=== PATIENT | female | born 1960 | race American Indian/Alaskan Native ===

== ENCOUNTER 2016-06-06 11:52 | Outpatient (CLI) | payer MEDICAID ==
--- NOTE | 2016-06-06 15:19 | Cat Scan Report ---
CT scan of chest with IV contrast: History: Hilar mass. Findings: No endobronchial or mediastinal mass or adenopathy. Stable mediastinal lymph nodes. There is a large pericardial effusion noted. Maximum diameter 5 cm. Bilateral emphysematous changes with predominantly along the mediastinal surface. No definite consolidation or lung mass. Areas of discoid atelectasis left lower lobe. Impression: Large pericardial effusion. Additional findings as detailed above.
== END 2016-06-06 11:53 | disposition home or self-care (01) ==
LOC: CT 11:52
PROVIDERS: ATTEND Specialist
DX: I31.3 Pericardial effusion (noninflammatory) (principal); R93.8 Abnormal findings on diagnostic imaging of other specified body structures; J98.11 Atelectasis
CPT/HCPCS: 71260; Q9967

== ENCOUNTER 2016-06-06 21:49 | Emergency (ER) | payer MEDICAID ==
--- NOTE | 2016-06-07 00:28 | Emergency Department Report ---
HPI - General Chief Complaint: Extremity Problem,Nontraumatic Time Seen by Provider: 06/07/16 00:22 - HPI HPI: Patient is a 55-year-old female who presents to ED complaining or right arm swelling and pain times today. Patient states she was sent from her doctor's office Dr. das for long CT with contrast. Patient states the nurse who put the contrast was heard in the right after. Patient states she began heard in right after he was put in her arm. Patient states he started to swell and hardening up. Patient states during the CT scan and she kept telling them that her arm was hurting. Patient denies loss of consciousness, loss of mobility, fever, chills, nausea, difficulty breathing, shortness of breath. ED Past Medical Hx - Past Medical History Previous Medical History?: Yes Hx GERD: Yes Hx COPD: Yes (Home O2) Additional medical history: gall stones, fibroids, MVP - Surgical History Past Surgical History?: Yes Additional Surgical History: fibroid removal - Social History Smoking Status: Never Smoker Substance Use Type: None - Medications Home Medications: Home Medications Medication Instructions Recorded Confirmed Last Taken Type Albuterol Sulfate [Proventil HFA] 1 - 2 puff IH Q4H PRN 30 Days 08/16/14 Unknown Rx Nicotine [Habitrol] 21 mg TD QDAY #30 patch 08/16/14 10/29/14 Unknown Rx Beclomethasone Dipropionate [Qvar 2 inhalation IH BID 10/29/14 10/29/14 Unknown History 80MCG] Ipratropium/Albuterol Sulfate 1 spray IH QID 10/29/14 10/29/14 Unknown History [Combivent Respimat] Tiotropium Br/Olodaterol HCl 4 gm IH BID 10/29/14 10/29/14 Unknown History [Stiolto Respimat Inhal [place]] predniSONE [Deltasone] 20 mg PO BID #10 tab 10/29/14 Unknown Rx Azithromycin [Zithromax TAB] 500 mg PO QDAY #5 tablet 11/19/14 Unknown Rx Chloroxylenol/Pramoxine HCl 3 - 5 drop AU Q6HR #1 bottle 11/19/14 Unknown Rx [Oticin Drops 0.1/1%] Acetaminophen/Codeine 1 tab PO Q6H PRN #20 tab 06/29/15 Unknown Rx [Acetaminophen-Codeine #3 TAB] Cyclobenzaprine [Flexeril 10 MG 10 mg PO Q8H PRN #21 tablet 06/29/15 Unknown Rx TAB] Hydrocortisone 1% [Hydrocortisone 1 applicatio TP TID #1 tube 07/31/15 Unknown Rx 1% CREAM] Famotidine [Pepcid] 20 mg PO BID #10 tablet 01/04/16 Unknown Rx diphenhydrAMINE [Benadryl CAP] 25 mg PO QHS PRN #10 capsule 06/07/16 Unknown Rx predniSONE [Deltasone] 20 mg PO QDAY #5 tab 06/07/16 Unknown Rx ED Review of Systems ROS: Stated complaint: RIGHT ARM SWELLING Other details as noted in HPI Constitutional: denies: chills, fever Eyes: denies: eye pain, eye discharge, vision change ENT: denies: ear pain, throat pain Respiratory: denies: cough, shortness of breath, wheezing Cardiovascular: denies: chest pain, palpitations Endocrine: no symptoms reported Gastrointestinal: denies: abdominal pain, nausea, diarrhea Genitourinary: denies: urgency, dysuria, discharge Musculoskeletal: denies: back pain, joint swelling, arthralgia Skin: change in color. denies: rash, lesions Neurological: denies: headache, weakness, paresthesias Psychiatric: denies: anxiety, depression Hematological/Lymphatic: denies: easy bleeding, easy bruising Physical Exam - Physical Exam Vital Signs: Vital Signs 06/06/16 21:58 Temperature 98.8 F Pulse Rate 60 Respiratory 20 Rate Blood Pressure 147/84 O2 Sat by Pulse 99 Oximetry Physical Exam: GENERAL: Alert and oriented x3, no apparent distress, Normal Gait, atraumatic. MOUTH:Mouth is well hydrated and without lesions. Tonsils nonerythematous or swollen, Uvula midline, Tongue not elevated. Mucous membranes are moist. Posterior pharynx clear, no exudate or lesions. Patent airways. NECK: Supple. Non edematous, No carotid bruits. No lymphadenopathy or thyromegaly. LUNGS: Symetrical with respiration, No wheezing, no rales or crackles, CTAB. HEART: S1, S2 present, regular rate and rhythm without murmur, no rubs, no gallops. ABDOMEN: No organomegaly was noted,Positive bowel sounds, soft, and non- distended. . Nontender to palpation on all Quadrants, NO CVA tenderness. EXTREMITIES/MUSCULOSKELETAL: No cyanosis, clubbing, rash, lesions or edema. Full ROM bilaterally. UE/LE Pulses 2+ bilaterally. Right elbow full range of motion. Mild ecchymosis noted at the antecubital region of the arm. +1 pitting edema and cellulitis from mid arm to the elbow. Nontender to palpation. NEUROLOGIC: No focal Deficit, Cranial nerves II through XII are grossly intact. No loss of sensation, PSYCHIATRIC: Mood is congruent with affect, denies suicidal or homicidal ideations. SKIN: Warm and dry, No lesions, No ulceration or induration present. ED Course Vital Signs 06/06/16 21:58 Temperature 98.8 F Pulse Rate 60 Respiratory 20 Rate Blood Pressure 147/84 O2 Sat by Pulse 99 Oximetry ED Medical Decision Making - Medical Decision Making 55-year-old female presents with dye induced allergic reaction. ED course: Patient received 20 mg of prednisone Discussed the patient warm compress application to arm daily 3 times. Discussed with patient and take medication as prescribed. Discussed the patient to follow up with her primary care doctor Dr. Bishop. Discuss if worsening symptoms to return to ED. Vital signs are stable patient is in no acute or respiratory distress. Patient verbally states she understands and will follow-up Critical care attestation.: If time is entered above; I have spent that time in minutes in the direct care of this critically ill patient, excluding procedure time. ED Disposition Clinical Impression: Dye induced allergic contact dermatitis Disposition: DISCHARGED TO HOME OR SELFCARE Is pt being admited?: No Does the pt Need Aspirin: No Condition: Stable Instructions: Contact Dermatitis (ED), Cellulitis (ED) Additional Instructions: Apply heat to affected area. Discussed follow-up with her primary care physician. If symptoms worsen return to nearest ED. Prescriptions: diphenhydrAMINE [Benadryl CAP] 25 mg PO QHS PRN #10 capsule PRN Reason: Allergic Reaction predniSONE [Deltasone] 20 mg PO QDAY #5 tab Referrals: PRIMARY CARE, [Primary Care Provider] - 3-5 Days Forms: Work/School Release Form(ED) Time of Disposition: 01:00
[2016-06-07] MEDS ORDERED: DELTASONE PO ONE (00:58)
[2016-06-07 01:33] VITALS: BP 125/80
== END 2016-06-07 01:41 | disposition home or self-care (01) ==
LOC: ED 21:49
DX: L23.4 Allergic contact dermatitis due to dyes (principal); K21.9 Gastro-esophageal reflux disease without esophagitis; J44.9 Chronic obstructive pulmonary disease, unspecified
CPT/HCPCS: 99282

== ENCOUNTER 2016-06-21 12:00 | Emergency (ER) | payer MEDICAID | END 2016-06-21 15:15 | disposition left against medical advice (07) | LOC: ED 12:00 | DX: R07.89 Other chest pain (principal); Z53.21 Procedure and treatment not carried out due to patient leaving prior to being seen by health care provider ==

== ENCOUNTER 2016-07-01 16:59 | Emergency (ER) | payer MEDICAID | END 2016-07-01 18:15 | disposition left against medical advice (07) | LOC: ED 16:59 | DX: Z00.8 Encounter for other general examination (principal); Z88.5 Allergy status to narcotic agent; Z53.21 Procedure and treatment not carried out due to patient leaving prior to being seen by health care provider ==

== ENCOUNTER 2016-07-06 16:26 | Emergency (ER) | payer MEDICAID ==
[2016-07-06 17:36] LABS: Bilirubin,Urine NEG (Negative); Blood,Urine SM (Negative); Ketones,Urine NEG (Negative); Leukocyte Esterase,Urine NEG (Negative); Nitrite,Urine NEG (Negative); Protein,Urine <15 mg/dL mg/dL (Negative); Urobilinogen,Urine < 2.0 mg/dL (<2.0)
[2016-07-06 17:51] LABS: Hematocrit 40.8 % (30.3-42.9); Hemoglobin 13.3 gm/dl (10.1-14.3); Mean Corpuscular HGB Conc 33 % (30-34); Mean Corpuscular Hemoglobin 28 pg (28-32); Mean Corpuscular Volume 86 fl (79-97); Platelet Count 238 K/mm3 (140-440); Red Blood Count 4.77 M/mm3 (3.65-5.03); Red Cell Distribution Width 15.6 % (13.2-15.2); White Blood Count 10.2 K/mm3 (4.5-11.0)
[2016-07-06 17:59] LABS: Basophils % (Auto) 1.1 % (0.0-1.8); Eosinophils % (Auto) 3.4 % (0.0-4.3)
[2016-07-06 18:03] LABS: Alanine Aminotransferase 23 units/L (7-56); Albumin 3.9 g/dL (3.9-5); Albumin/Globulin Ratio 1.4 %; Alkaline Phosphatase 85 units/L (35-129); Anion Gap 18 mmol/L; BUN/Creatinine Ratio 11.25; Blood Urea Nitrogen 9 mg/dL (7-17); Calcium 9.2 mg/dL (8.4-10.2); Carbon Dioxide 29 mmol/L (22-30); Chloride 100.6 mmol/L (98-107); Glucose 115 mg/dL (65-100); Potassium 3.7 mmol/L (3.6-5.0); Sodium 144 mmol/L (137-145); Total Protein 6.6 g/dL (6.3-8.2)
[2016-07-06 18:08] LABS: INR 0.92 (0.87-1.13)
[2016-07-06 18:09] LABS: Partial Thromboplastin Time 25.9 Sec. (24.2-36.6)
[2016-07-06 18:11] LABS: Creatine Kinase 205 units/L (30-135); Creatine Kinase MB 3.8 ng/mL (0.0-4.0)
[2016-07-06] MEDS ORDERED: LEVAQUIN 750MG/150ML 750 MG/150 ML BAG IV ONE (21:01)
[2016-07-06] MEDS ORDERED: DUONEB 0.5 MG-3 MG/3 ML SOLN IH ONE (21:01)
--- NOTE | 2016-07-06 22:00 | Emergency Department Report ---
ED Shortness of Breath HPI - General Chief Complaint: Dyspnea/Respdistress Stated Complaint: SOB Time Seen by Provider: 07/06/16 20:48 Source: patient, RN notes reviewed Mode of arrival: Ambulatory Limitations: No Limitations - History of Present Illness Initial Comments: 55-year-old female presents to the emergency department complaining of shortness of breath. Patient reports the acute onset of difficulty breathing approximately 2:30 this afternoon. Patient states that she normally wears 2 L of oxygen via nasal cannula. She has not had to increase this since onset of symptoms. She reports mild cough productive of yellow sputum. She denies fever or chest pain. There are no other complaints. MD Complaint: shortness of breath, cough -: Sudden, This afternoon Time: 14:30 Pain Scale: 0 Consistency: constant Improves With: nothing Worsens With: nothing Known History Of: COPD Associated Symptoms: denies other symptoms Treatments Prior to Arrival: none - Related Data Home Oxygen Therapy: Yes Home Oxygen Amount: 2 Liters Home Medications Medication Instructions Recorded Confirmed Last Taken Beclomethasone Dipropionate [Qvar 2 inhalation IH BID 10/29/14 10/29/14 Unknown 80MCG] Ipratropium/Albuterol Sulfate 1 spray IH QID 10/29/14 10/29/14 Unknown [Combivent Respimat] Tiotropium Br/Olodaterol HCl 4 gm IH BID 10/29/14 10/29/14 Unknown [Stiolto Respimat Inhal [place]] Previous Rx's Medication Instructions Recorded Last Taken Type Albuterol Sulfate [Proventil HFA] 1 - 2 puff IH Q4H PRN 30 Days 08/16/14 Unknown Rx Nicotine [Habitrol] 21 mg TD QDAY #30 patch 08/16/14 Unknown Rx Azithromycin [Zithromax TAB] 500 mg PO QDAY #5 tablet 11/19/14 Unknown Rx Chloroxylenol/Pramoxine HCl 3 - 5 drop AU Q6HR #1 bottle 11/19/14 Unknown Rx [Oticin Drops 0.1/1%] Acetaminophen/Codeine [Tylenol 1 tab PO Q6H PRN #20 tab 06/29/15 Unknown Rx /Codeine # 3 tab] Cyclobenzaprine [Flexeril 10 MG 10 mg PO Q8H PRN #21 tablet 06/29/15 Unknown Rx TAB] Hydrocortisone 1% [Hydrocortisone 1 applicatio TP TID #1 tube 07/31/15 Unknown Rx 1% CREAM] Famotidine [Pepcid] 20 mg PO BID #10 tablet 01/04/16 Unknown Rx diphenhydrAMINE [Benadryl CAP] 25 mg PO QHS PRN #10 capsule 06/07/16 Unknown Rx Dicyclomine [Bentyl] 20 mg PO QID PRN #20 tablet 07/06/16 Unknown Rx Levofloxacin [Levaquin] 750 mg PO QDAY #7 tablet 07/06/16 Unknown Rx predniSONE [Deltasone] 3 tab PO QDAY #15 tab 07/06/16 Unknown Rx Allergies Allergy/AdvReac Type Severity Reaction Status Date / Time morphine Allergy Rash Verified 12/21/14 06:53 ED Review of Systems ROS: Stated complaint: SOB Other details as noted in HPI Comment: All other systems reviewed and negative Respiratory: cough, shortness of breath ED Past Medical Hx - Past Medical History Previous Medical History?: Yes Hx GERD: Yes Hx COPD: Yes (Home O2) Additional medical history: gall stones, fibroids, MVP - Surgical History Past Surgical History?: Yes Additional Surgical History: fibroid removal - Family History Family history: no significant - Social History Smoking Status: Former Smoker Substance Use Type: None - Medications Home Medications: Home Medications Medication Instructions Recorded Confirmed Last Taken Type Albuterol Sulfate [Proventil HFA] 1 - 2 puff IH Q4H PRN 30 Days 08/16/14 Unknown Rx Nicotine [Habitrol] 21 mg TD QDAY #30 patch 08/16/14 10/29/14 Unknown Rx Beclomethasone Dipropionate [Qvar 2 inhalation IH BID 10/29/14 10/29/14 Unknown History 80MCG] Ipratropium/Albuterol Sulfate 1 spray IH QID 10/29/14 10/29/14 Unknown History [Combivent Respimat] Tiotropium Br/Olodaterol HCl 4 gm IH BID 10/29/14 10/29/14 Unknown History [Stiolto Respimat Inhal [place]] Azithromycin [Zithromax TAB] 500 mg PO QDAY #5 tablet 11/19/14 Unknown Rx Chloroxylenol/Pramoxine HCl 3 - 5 drop AU Q6HR #1 bottle 11/19/14 Unknown Rx [Oticin Drops 0.1/1%] Acetaminophen/Codeine [Tylenol 1 tab PO Q6H PRN #20 tab 06/29/15 Unknown Rx /Codeine # 3 tab] Cyclobenzaprine [Flexeril 10 MG 10 mg PO Q8H PRN #21 tablet 06/29/15 Unknown Rx TAB] Hydrocortisone 1% [Hydrocortisone 1 applicatio TP TID #1 tube 07/31/15 Unknown Rx 1% CREAM] Famotidine [Pepcid] 20 mg PO BID #10 tablet 01/04/16 Unknown Rx diphenhydrAMINE [Benadryl CAP] 25 mg PO QHS PRN #10 capsule 06/07/16 Unknown Rx Dicyclomine [Bentyl] 20 mg PO QID PRN #20 tablet 07/06/16 Unknown Rx Levofloxacin [Levaquin] 750 mg PO QDAY #7 tablet 07/06/16 Unknown Rx predniSONE [Deltasone] 3 tab PO QDAY #15 tab 07/06/16 Unknown Rx ED Physical Exam - General Limitations: No Limitations General appearance: alert, in no apparent distress - Head Head exam: Present: atraumatic, normocephalic - Eye Eye exam: Present: normal appearance, PERRL, EOMI - ENT ENT exam: Present: normal exam, normal orophraynx, mucous membranes moist - Neck Neck exam: Present: normal inspection, full ROM. Absent: tenderness - Respiratory Respiratory exam: Present: wheezes (bilateral posterior end expiratory wheezes) . Absent: respiratory distress - Cardiovascular Cardiovascular Exam: Present: regular rate, normal rhythm, systolic murmur (2/6 left lower sternal border) - GI/Abdominal GI/Abdominal exam: Present: soft, normal bowel sounds. Absent: distended, tenderness - Extremities Exam Extremities exam: Present: normal inspection, full ROM. Absent: tenderness - Back Exam Back exam: Present: normal inspection, full ROM. Absent: tenderness - Neurological Exam Neurological exam: Present: alert, oriented X3. Absent: motor sensory deficit - Skin Skin exam: Present: warm, dry, intact ED Course Vital Signs 07/06/16 07/06/16 07/06/16 16:44 21:31 21:59 Temperature 98.9 F Pulse Rate 72 Pulse Rate [ 114 H 129 H Throughout] Respiratory 22 Rate Respiratory 20 20 Rate [ Throughout] Blood Pressure 131/65 O2 Sat by Pulse 95 Oximetry ED Medical Decision Making - Lab Data Result diagrams: 07/06/16 17:27 07/06/16 17:27 - EKG Data -: EKG Interpreted by Me EKG shows normal: sinus rhythm, axis, intervals, QRS complexes, ST-T waves Rate: tachycardia - EKG Data When compared to previous EKG there are: no significant change Interpretation: normal EKG, unchanged when compared t (10/29/2014) - Radiology Data Radiology results: image reviewed interpreted by me: Chest x-ray shows cardiomegaly. There is no evidence of infiltrate or pulmonary edema. - Medical Decision Making Lab and imaging results reviewed and discussed with the patient. She reports feeling much better following nebulized treatment. Patient will be discharged home at this time on oral anti-biotics and steroids to follow up with her primary care physician. - Differential Diagnosis COPD exacerbation, pneumonia, bronchitis Critical care attestation.: If time is entered above; I have spent that time in minutes in the direct care of this critically ill patient, excluding procedure time. ED Disposition Clinical Impression: COPD exacerbation Disposition: DISCHARGED TO HOME OR SELFCARE Is pt being admited?: No Condition: Stable Instructions: Chronic Obstructive Pulmonary Disease (ED) Prescriptions: Dicyclomine [Bentyl] 20 mg PO QID PRN #20 tablet PRN Reason: Pain Levofloxacin [Levaquin] 750 mg PO QDAY #7 tablet predniSONE [Deltasone] 3 tab PO QDAY #15 tab Referrals: PRIMARY CARE, [Primary Care Provider] - 3-5 Days Time of Disposition: 22:43
[2016-07-06] MEDS ORDERED: BENTYL IM ONE (22:27)
[2016-07-06 22:57] VITALS: BP 120/64
--- NOTE | 2016-07-07 07:51 | XRay Report ---
ROUTINE CHEST, TWO VIEWS: HISTORY: Dyspnea. There is moderate cardiomegaly which appears grossly unchanged since CT chest with contrast dated 06/06/16. This appears to represent a large pericardial effusion. Pulmonary vascularity remains normal. The lungs are grossly clear. No pleural effusion or pneumothorax. Mild scoliosis. IMPRESSION: Cardiomegaly. Lungs clear.
== END 2016-07-06 23:00 | disposition home or self-care (01) ==
LOC: ED 16:26
DX: J44.1 Chronic obstructive pulmonary disease with (acute) exacerbation (principal); K21.9 Gastro-esophageal reflux disease without esophagitis; Z88.5 Allergy status to narcotic agent; Z87.891 Personal history of nicotine dependence
CPT/HCPCS: 36415; 71020; 80053; 81001; 82140; 82550; 82553; 82805; 84484; 85025; 85610; 85730; 93005; 93010; 94640; 96365; 96372; 96375; 99284; J0500; J1956; J2930

== ENCOUNTER 2016-07-14 20:12 | Emergency (ER) | payer MEDICAID ==
[2016-07-14 20:34] VITALS: BP 158/75
[2016-07-14 21:33] LABS: Anion Gap 17 mmol/L; Blood Urea Nitrogen 15 mg/dL (7-17); Calcium 9.7 mg/dL (8.4-10.2); Carbon Dioxide 28 mmol/L (22-30); Chloride 98.7 mmol/L (98-107); Glucose 101 mg/dL (65-100); Potassium 3.9 mmol/L (3.6-5.0); Sodium 140 mmol/L (137-145)
[2016-07-14 21:45] LABS: Bacteria,Urine 1+ /HPF (Negative); Bilirubin,Urine NEG (Negative); Blood,Urine SM (Negative); Ketones,Urine NEG (Negative); Leukocyte Esterase,Urine NEG (Negative); Nitrite,Urine NEG (Negative); Protein,Urine <15 mg/dL mg/dL (Negative); Urobilinogen,Urine < 2.0 mg/dL (<2.0); WBC,Urine < 1.0 /HPF (0.0-6.0)
[2016-07-14 21:48] LABS: Hematocrit 42.8 % (30.3-42.9); Hemoglobin 14.1 gm/dl (10.1-14.3); Mean Corpuscular HGB Conc 33 % (30-34); Mean Corpuscular Hemoglobin 29 pg (28-32); Mean Corpuscular Volume 87 fl (79-97); Platelet Count 297 K/mm3 (140-440); Red Cell Distribution Width 15.4 % (13.2-15.2); White Blood Count 13.2 K/mm3 (4.5-11.0)
== END 2016-07-14 21:45 | disposition left against medical advice (07) ==
LOC: ED 20:12
DX: H53.8 Other visual disturbances (principal); R07.89 Other chest pain; Z53.21 Procedure and treatment not carried out due to patient leaving prior to being seen by health care provider
CPT/HCPCS: 36415; 80048; 81001; 85027

== ENCOUNTER 2016-07-22 10:56 | Day surgery (SDC) | payer MEDICAID ==
[~2016-07-22 10:56] MED LIST: VERSED IV ONE
[2016-07-22] MEDS ORDERED: XYLOCAINE MPF 2% ONE (11:00)
[2016-07-22] MEDS ORDERED: DIPRIVAN 10 MG/ML IV ONE ×3 (11:10→11:11)
--- NOTE | 2016-07-22 11:32 | Anesthesia Day of Surgery ---
Anesthesia Day of Surgery - Day of Surgery Patient Examined: Yes Patient H&P Reviewed: Yes Patient is NPO: Yes
--- NOTE | 2016-07-22 11:37 | Anesthesia Consultation ---
Anesthesia Consult and Med Hx - Airway Anesthetic Teeth Evaluation: Poor, Dentures (upper) ROM Head & Neck: Adequate Mental/Hyoid Distance: Adequate Mallampati Class: Class II Intubation Access Assessment: Probably Good - Pulmonary Exam CTA: Yes - Cardiac Exam Cardiac Exam: RRR (pt has heart murmer with irregular heart beat) - Pre-Operative Health Status ASA Pre-Surgery Classification: ASA2, ASA3 Proposed Anesthetic Plan: MAC - Pulmonary Hx Smoking: Yes (pt states 3 cigs/day) Hx Asthma: Yes (last attack yesterday) COPD: Yes (Home O2) - Cardiovascular System Hx Hypertension: No Hx Heart Attack/AMI: No Hx Pacemaker: No Hx Internal Defibrillator: No - Central Nervous System Hx Seizures: No - Gastrointestinal Hx Gastroesophageal Reflux Disease: Yes (controlled) - Endocrine Hx Renal Disease: No Hx Liver Disease: No - Hematic Hx Sickle Cell Disease: No - Additional Comments Anesthesia Medical History Comments: NPO after mhn. O2 dependent at home. Asthma attack yesterday.
[2016-07-22] MEDS ORDERED: PROVENTIL IH NR (11:45)
[2016-07-22] MEDS ORDERED: NACL 0.9% 1000 ML 1,000 ML IV SCH (12:00)
[2016-07-22] MEDS ORDERED: NACL 0.9% 500 ML 500 ML IV SCH (12:00)
[2016-07-22] MEDS ORDERED: PROVENTIL IH PRN (12:00)
[2016-07-22 12:15] LABS: INR 0.96 (0.87-1.13)
[2016-07-22 12:19] LABS: Anion Gap 20 mmol/L; Blood Urea Nitrogen 17 mg/dL (7-17); Calcium 9.2 mg/dL (8.4-10.2); Carbon Dioxide 23 mmol/L (22-30); Chloride 99.7 mmol/L (98-107); Glucose 135 mg/dL (65-100); Potassium 3.8 mmol/L (3.6-5.0); Sodium 139 mmol/L (137-145)
[2016-07-22] MEDS ORDERED: HURRICAINE ONE 20% TOPICAL SPRAY MM NR (13:00)
[2016-07-22 15:21] VITALS: BP 102/58
== END 2016-07-22 16:03 | disposition home or self-care (01) ==
LOC: OPU 10:56
DX: I08.1 Rheumatic disorders of both mitral and tricuspid valves (principal); J44.9 Chronic obstructive pulmonary disease, unspecified; J45.909 Unspecified asthma, uncomplicated; K21.9 Gastro-esophageal reflux disease without esophagitis; F17.210 Nicotine dependence, cigarettes, uncomplicated; Z99.81 Dependence on supplemental oxygen; Z79.899 Other long term (current) drug therapy; Z88.5 Allergy status to narcotic agent; Z83.3 Family history of diabetes mellitus; Z82.49 Family history of ischemic heart disease and other diseases of the circulatory system; Z82.3 Family history of stroke
CPT/HCPCS: 36415; 80048; 85610; 93005; 93010; 93312; 93320; 93325; 94640; J1720; J2704; J7040

== ENCOUNTER 2016-08-28 07:26 | Day surgery (SDC) | payer MEDICAID ==
[2016-08-28 09:14] VITALS: BP 119/67
[2016-08-28] MEDS ORDERED: ECOTRIN PO ONE (09:30)
[2016-08-28 09:33] LABS: Hematocrit 41.4 % (30.3-42.9); Hemoglobin 13.4 gm/dl (10.1-14.3); Mean Corpuscular HGB Conc 32 % (30-34); Mean Corpuscular Hemoglobin 28 pg (28-32); Mean Corpuscular Volume 85 fl (79-97); Platelet Count 293 K/mm3 (140-440); Red Blood Count 4.85 M/mm3 (3.65-5.03); Red Cell Distribution Width 15.5 % (13.2-15.2); White Blood Count 13.1 K/mm3 (4.5-11.0)
[2016-08-28 09:46] LABS: INR 1.08 (0.87-1.13)
[2016-08-28 09:56] LABS: Anion Gap 18 mmol/L; Blood Urea Nitrogen 11 mg/dL (7-17); Calcium 9.1 mg/dL (8.4-10.2); Carbon Dioxide 25 mmol/L (22-30); Glucose 98 mg/dL (65-100); Sodium 143 mmol/L (137-145)
[2016-08-28] MEDS ORDERED: NACL 0.9% 500 ML 500 ML IV SCH (10:00)
[2016-08-28 10:21] LABS: Basophils % (Manual) 0 % (0.0-1.8); Blastocytes % (Manual) 0 %; Ovalocytes Few
[2016-08-28 10:22] LABS: Anisocytosis Few; Diff Status Complete
[2016-08-28] MEDS ORDERED: HEPARIN 10,000 UNITS/10 ML ONE (10:31)
[2016-08-28] MEDS ORDERED: VERSED ONE (10:31)
[2016-08-28] MEDS ORDERED: HEPARIN/NS 5000 UNIT/500ML(CATH LAB) 0 ML IR ONE (10:31)
[2016-08-28] MEDS ORDERED: SUBLIMAZE ONE (10:32)
[2016-08-28] MEDS ORDERED: CALAN ONE (10:32)
[2016-08-28] MEDS ORDERED: XYLOCAINE 2% INFILTRATI ONE (10:32)
[2016-08-28] MEDS ORDERED: NITROGLYCERIN SYRINGE 0 ML ONE (10:32)
== END 2016-08-28 11:00 | disposition home or self-care (01) ==
LOC: OPU 07:26
PROVIDERS: ATTEND Internal Medicine
DX: I34.0 Nonrheumatic mitral (valve) insufficiency (principal); J44.9 Chronic obstructive pulmonary disease, unspecified; K21.9 Gastro-esophageal reflux disease without esophagitis; F17.210 Nicotine dependence, cigarettes, uncomplicated; Z79.899 Other long term (current) drug therapy; Z88.5 Allergy status to narcotic agent; Z98.890 Other specified postprocedural states; Z83.3 Family history of diabetes mellitus; Z82.49 Family history of ischemic heart disease and other diseases of the circulatory system; Z82.3 Family history of stroke; Z53.8 Procedure and treatment not carried out for other reasons
CPT/HCPCS: 36415; 80048; 85007; 85025; 85610; 85730; 93005; 93010; J7040; J1644; J2250; J3010

== ENCOUNTER 2016-09-04 07:31 | Day surgery (SDC) | payer MEDICAID ==
[2016-09-04] MEDS ORDERED: ECOTRIN PO ONE (08:07)
[2016-09-04] MEDS ORDERED: PROVENTIL IH ONE ×2 (08:41→10:32)
[2016-09-04] MEDS ORDERED: VERSED ONE (08:41)
[2016-09-04] MEDS ORDERED: SUBLIMAZE ONE (08:42)
[2016-09-04] MEDS ORDERED: DIPRIVAN 10 MG/ML IV ONE (08:42)
[2016-09-04] MEDS ORDERED: AMIDATE IV ONE (08:58)
[2016-09-04] MEDS ORDERED: NEO SYNEPHRINE ONE (08:58)
[2016-09-04] MEDS ORDERED: NACL 0.9% 100 ML ONE (08:58)
[2016-09-04] MEDS ORDERED: HEPARIN 10,000 UNITS/10 ML ONE (09:00)
[2016-09-04] MEDS ORDERED: NACL 0.9% 1000 ML 1,000 ML IV SCH (09:00)
[2016-09-04] MEDS ORDERED: HEPARIN/NS 5000 UNIT/500ML(CATH LAB) 1,000 ML IR ONE (09:00)
[2016-09-04] MEDS ORDERED: CALAN ONE (09:00)
[2016-09-04] MEDS ORDERED: XYLOCAINE 2% INFILTRATI ONE (09:00)
[2016-09-04] MEDS ORDERED: XYLOCAINE MPF 2% ONE (09:07)
--- NOTE | 2016-09-04 10:44 | Prelim Cardiac Cath Report ---
Preliminary Cath Report - Hemodynamic Findings Aorta(AO): 128/74 Left Ventricular(LV): 127/22 - Other Findings Estimated blood loss: minimal Dominance: right Estimated Ejection Fraction: 45 (mild hypokinesis particularly of the inferior wall was noted.) LV Contractility: diffusely mildly hypokinetic. Coronary Anatomy: Cardiac catheterization procedure: Patient with severe lung disease, requiring oxygen all the time was scheduled for cardiac catheterization. Anesthesia was consulted for sedation. Was evaluated by anesthesia and was sedated with the IV Versed, fentanyl, and also Propofol. Patient was deeply sedated. Subsequently patient was draped and sterile drapes were applied. Local anesthesia was applied in the right wrist area. Right radial artery puncture was made using 21-gauge arterial puncture needle. Subsequently 5 [place] sheath was introduced. Patient received 5 mg of intra-arterial verapamil and 3000 units of intravenous heparin. Subsequently using 5 [place] multipurpose catheter and angiograms of right coronary artery and left coronary artery were obtained. LAD injections were nonselective, hence 5 [place] Tig catheter was used to obtain angiograms of the LAD. 5 [place] pigtail catheter was used to enter the left ventricle, pressures were measured. Subsequently using pressure injector, 45 mL of dye was injected 15 mL/h. At the end of the procedure the catheter and sheath were removed. Patient tolerated the procedure well. Radial band was applied for hemostasis. Patient being monitored by anesthesia for recovery. Left ventriculography: Left ventricular gram was performed using a power injector. Moderately dilated left ventricle with diffuse hypokinesis particularly of the inferior wall noted. Estimated ejection fraction 45-50%. There is severe 4+ mitral regurgitation noted. Markedly enlarged left atrium noted. Coronary angiography: Left coronary artery: Left main is non-existent with 2 separate ostia for LAD and circumflex. LAD arises separately, reaches apex, angiographically smooth and normal. Circumflex artery arises separately, angiographically smooth and normal, very tortuous. Right coronary artery: Dominant vessel, angiographically smooth and normal. Arises normally. Post Diagnosis: Severe mitral regurgitation, with dilated left ventricle and markedly dilated left atrium. Ejection fraction around 45-50%. Normal coronary angiography. Recommendations: Would continue present medical therapy, consider evaluation for mitral valve repair.
[2016-09-04 13:11] VITALS: BP 105/60
[2016-09-04] MEDS ORDERED: ePHEDrine SULFATE ONE (14:32)
[2016-09-04] MEDS ORDERED: ZOFRAN ONE (14:33)
--- NOTE | 2016-09-04 15:04 | Anesthesia Day of Surgery ---
Anesthesia Day of Surgery - Day of Surgery Patient Examined: Yes Patient H&P Reviewed: Yes Patient is NPO: Yes
--- NOTE | 2016-09-04 15:04 | Anesthesia Consultation ---
Anesthesia Consult and Med Hx Date of service: 09/04/16 - Airway Anesthetic Teeth Evaluation: Poor, Dentures (upper) - Pulmonary Exam CTA: No (bilateral wheezing) - Cardiac Exam Cardiac Exam: RRR - Pre-Operative Health Status ASA Pre-Surgery Classification: ASA3 Proposed Anesthetic Plan: MAC - Pulmonary Hx Smoking: Yes (pt states 4 cigs/day) Hx Asthma: Yes SOB: Yes COPD: Yes Home Oxygen Therapy: Yes (Home O2 - 3L/min) Hx Sleep Apnea: Yes - Cardiovascular System Hx Hypertension: No Hx Heart Attack/AMI: No Hx Pacemaker: No Hx Internal Defibrillator: No Hx Valvular Heart Disease: Yes (severe MR) Hx Peripheral Vascular Disease: Yes - Central Nervous System Hx Seizures: No Hx Psychiatric Problems: Yes (anxiety, extreme claustorphobia) - Gastrointestinal Hx Gastroesophageal Reflux Disease: Yes (controlled) - Endocrine Hx Renal Disease: No Hx Liver Disease: No Hx Insulin Dependent Diabetes: No - Hematic Hx Sickle Cell Disease: No - Other Systems Hx Alcohol Use: No Hx Substance Use: No Hx Cancer: No Hx Obesity: No
== END 2016-09-04 13:30 | disposition home or self-care (01) ==
LOC: OPU 07:31
PROVIDERS: ATTEND Internal Medicine
DX: I34.0 Nonrheumatic mitral (valve) insufficiency (principal); J44.9 Chronic obstructive pulmonary disease, unspecified; K21.9 Gastro-esophageal reflux disease without esophagitis; F17.210 Nicotine dependence, cigarettes, uncomplicated; F41.9 Anxiety disorder, unspecified; F40.240 Claustrophobia; Z79.899 Other long term (current) drug therapy; Z86.79 Personal history of other diseases of the circulatory system; Z98.890 Other specified postprocedural states; Z88.5 Allergy status to narcotic agent; Z83.3 Family history of diabetes mellitus; Z82.49 Family history of ischemic heart disease and other diseases of the circulatory system; Z82.3 Family history of stroke; Z99.81 Dependence on supplemental oxygen
CPT/HCPCS: 93005; 93010; 93458; C1769; C1887; C1894; J1644; J2250; J2370; J2405; J2704; J3010; J7030; Q9967

== ENCOUNTER 2016-09-25 23:33 | Emergency (ER) | payer MEDICAID ==
[2016-09-25 23:46] VITALS: BP 127/66
[2016-09-26 00:34] LABS: Anion Gap 19 mmol/L; BUN/Creatinine Ratio 11.25; Blood Urea Nitrogen 9 mg/dL (7-17); Calcium 9.3 mg/dL (8.4-10.2); Carbon Dioxide 22 mmol/L (22-30); Chloride 104.1 mmol/L (98-107); Glucose 86 mg/dL (65-100); Potassium 3.8 mmol/L (3.6-5.0); Sodium 141 mmol/L (137-145)
[2016-09-26 00:38] LABS: Hematocrit 38.4 % (30.3-42.9); Hemoglobin 12.6 gm/dl (10.1-14.3); Mean Corpuscular HGB Conc 33 % (30-34); Mean Corpuscular Hemoglobin 28 pg (28-32); Mean Corpuscular Volume 86 fl (79-97); Platelet Count 292 K/mm3 (140-440); Red Blood Count 4.48 M/mm3 (3.65-5.03); Red Cell Distribution Width 14.6 % (13.2-15.2); White Blood Count 9.9 K/mm3 (4.5-11.0)
[2016-09-26 03:14] LABS: Basophils % (Manual) 0 % (0.0-1.8); Blastocytes % (Manual) 0 %
[2016-09-26 03:15] LABS: Diff Status Complete; Platelet Estimate Consistent w Auto; RBC Morphology Normal
--- NOTE | 2016-09-26 03:45 | Emergency Department Report ---
ED Lower Extremity HPI - General Chief Complaint: Extremity Problem,Nontraumatic Stated Complaint: LEG SWELLING Time Seen by Provider: 09/26/16 03:29 Source: patient, family Mode of arrival: Ambulatory Limitations: No Limitations - History of Present Illness Initial Comments: Patient here reports that her left foot has been swollen for 1 day it stated in triage not that left leg but she said it's the ankle that saw her in. She said it comes and goes and it's worse when she walks. She reports pain is 3/10 to left ankle and feels achy. Patient says that she's been walking a lot. She uses oxygen at 2 L nasal cannula on and off due to COPD. She says she has a history of mitral valve prolapse, asthma. Patient said that she's been taking [id number] pain medication but it's not helping. She denies any chest pain or shortness of breath. Denies any history of blood clots in her legs or in her lungs. Denies any family history of blood clots. Denies any swelling in her legs. Denies any calf pain. Denies any recent long distance travel by airplane or car. Denies As any recent surgery or chcf bedrest. Denies taking any hormone. MD Complaint: other Onset/Timin -: days(s) Injury: Ankle: Left (left ankle swelling that comes and goes) Type of Injury: unknown Place: home Severity: mild Severity scale (0 -10): 3 Improves With: rest (elevation of feet) Worsens With: weight bearing (walk-in) Context: other (none) Associated Symptoms: swelling, ambulatory. denies: snap/pop sensation, numbness , tingling, unable to bear weight, able to partially bear weight Treatments Prior to Arrival: other (none) - Related Data Home Medications Medication Instructions Recorded Confirmed Last Taken Ipratropium/Albuterol Sulfate 1 spray IH QID 10/29/14 09/04/16 09/03/16 [Combivent Respimat] 1 spray Tiotropium Br/Olodaterol HCl 2 gm IH BID 10/29/14 09/04/16 09/03/16 [Stiolto Respimat Inhal [place]] 2gm Arformoterol Tartrate(Nf) [Brovana 1 puff INHALATION DAILY 07/22/16 09/04/16 (Nf)] 1 puff Ipratropium/Albuterol Sulfate 3 ml INHALATION BID 09/04/16 09/04/16 09/03/16 [Iprat-Albut 0.5-3(2.5) mg/3 ml] 3ml Previous Rx's Medication Instructions Recorded Last Taken Type predniSONE [Deltasone] 3 tab PO QDAY #15 tab 07/06/16 09/03/16 Rx 3 tab Allergies Allergy/AdvReac Type Severity Reaction Status Date / Time morphine Allergy Rash Verified 12/21/14 06:53 ED Review of Systems ROS: Stated complaint: LEG SWELLING Other details as noted in HPI Comment: All other systems reviewed and negative Constitutional: denies: chills, fever Eyes: denies: eye pain, eye discharge, vision change Respiratory: no symptoms reported Cardiovascular: denies: chest pain, palpitations, edema, syncope Gastrointestinal: denies: abdominal pain, nausea, vomiting, diarrhea Skin: denies: rash Neurological: denies: headache, weakness, abnormal gait, vertigo ED Past Medical Hx - Past Medical History Previous Medical History?: Yes Hx Hypertension: No Hx CVA: No Hx Heart Attack/AMI: No Hx Congestive Heart Failure: No Hx Diabetes: No Hx Deep Vein Thrombosis: No Hx Pulmonary Embolism: No Hx GERD: Yes Hx Liver Disease: No Hx Renal Disease: No Hx Sickle Cell Disease: No Hx Arthritis: No Hx Headaches / Migraines: No Hx Seizures: No Hx Kidney Stones: No Hx Psychiatric Treatment: No Hx Asthma: Yes Hx COPD: Yes Hx Tuberculosis: No Hx Dementia: No Hx HIV: No Additional medical history: gall stones, fibroids, MVP - Surgical History Past Surgical History?: No Hx Coronary Stent: No Hx Open Heart Surgery: No Hx Pacemaker: No Hx Internal Defibrillator: No Hx Cholecystectomy: No Hx Appendectomy: No Hx Breast Surgery: No Additional Surgical History: fibroid removal - Family History Family history: no significant - Social History Smoking Status: Current Every Day Smoker Substance Use Type: None - Medications Home Medications: Home Medications Medication Instructions Recorded Confirmed Last Taken Type Ipratropium/Albuterol Sulfate 1 spray IH QID 10/29/14 09/04/16 09/03/16 History [Combivent Respimat] 1 spray Tiotropium Br/Olodaterol HCl 2 gm IH BID 0809/04/16 09/03/16 History [Stiolto Respimat Inhal [place]] 2gm predniSONE [Deltasone] 3 tab PO QDAY #15 tab 07/06/16 09/04/16 09/03/16 Rx 3 tab Arformoterol Tartrate(Nf) [Brovana 1 puff INHALATION DAILY 07/22/16 09/04/16 History (Nf)] 1 puff Ipratropium/Albuterol Sulfate 3 ml INHALATION BID 09/04/16 09/04/16 09/03/16 History [Iprat-Albut 0.5-3(2.5) mg/3 ml] 3ml ED Physical Exam - General Limitations: No Limitations General appearance: alert, in no apparent distress - Head Head exam: Present: atraumatic, normocephalic, normal inspection - Eye Eye exam: Present: normal appearance, PERRL, EOMI Pupils: Present: normal accommodation - ENT ENT exam: Present: normal exam, normal orophraynx, mucous membranes moist, TM's normal bilaterally, normal external ear exam - Neck Neck exam: Present: normal inspection, full ROM. Absent: tenderness, meningismus, lymphadenopathy - Respiratory Respiratory exam: Present: normal lung sounds bilaterally. Absent: respiratory distress, chest wall tenderness - Cardiovascular Cardiovascular Exam: Present: normal rhythm, tachycardia, normal heart sounds - GI/Abdominal GI/Abdominal exam: Present: soft, normal bowel sounds. Absent: distended, tenderness, guarding, rebound, rigid - Extremities Exam Extremities exam: Present: normal inspection, full ROM, normal capillary refill , joint swelling, other (No CC. Mild swellinfg to lt ankleE. +2 pulses to extremities. Full ROm). Absent: tenderness, pedal edema, calf tenderness - Expanded Lower Extremity Exam Left Hip exam: Present: normal inspection, full ROM, pelvic stability. Absent: tenderness, swelling, abrasion, laceration, ecchymosis, deformity, crepidus, dislocation, erythema, external rotation, internal rotation, shortening Upper Leg exam: Present: normal inspection, full ROM. Absent: tenderness, swelling, abrasion, laceration, ecchymosis, deformity, crepidus, dislocation, erythema Knee exam: Present: normal inspection, full ROM, full knee extension. Absent: tenderness, swelling, abrasion, laceration, ecchymosis, deformity, crepidus, dislocation, erythema, effusion, pain w/ pronation/supination Lower Leg exam: Present: normal inspection, full ROM. Absent: tenderness, swelling, abrasion, laceration, ecchymosis, deformity, crepidus, dislocation, erythema, palpable cord Ankle exam: Present: normal inspection, full ROM, swelling (trace swelling to left ankle that resolve when patient elevated her feet and appears when patient feet are dependent.). Absent: tenderness, abrasion, laceration, ecchymosis, deformity, crepidus, dislocation, erythema Foot/Toe exam: Present: normal inspection, full ROM. Absent: tenderness, swelling, abrasion, laceration, ecchymosis, deformity, crepidus, dislocation, erythema, amputation, puncture wound, foreign body, calcaneal tenderness, tenderness at base of 5th metatarsal, nail avulsion, subungual hematoma Neuro vascular tendon exam: Present: no vascular compromise. Absent: pulse deficit, abnormal cap refill, motor deficit, sensory deficit, tendon deficit, extremity cold to touch, pallor, abnormal 2-point discrimination, decreased fine /light touch, foot drop, peroneal nerve deficit, significant pain with passive ROM of distal joint Gait: Positive: observed and normal - Back Exam Back exam: Present: normal inspection, full ROM. Absent: tenderness, CVA tenderness (R), CVA tenderness (L), muscle spasm, paraspinal tenderness, vertebral tenderness, rash noted - Neurological Exam Neurological exam: Present: alert, oriented X3, normal gait, reflexes normal. Absent: motor sensory deficit - Psychiatric Psychiatric exam: Present: normal affect, normal mood - Skin Skin exam: Present: warm, dry, intact, normal color. Absent: rash ED Course Vital Signs 09/25/16 09/26/16 23:39 03:46 Temperature 98.6 F Pulse Rate 110 H 86 Respiratory 20 Rate Blood Pressure 127/66 O2 Sat by Pulse 98 Oximetry - Reevaluation(s) Reevaluation #1: 09/26/16 05:46 stable throughout ED course. 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 Add Manual Diff Complete Total Counted 100 Seg Neuts % (Manual) 41.0 (40.0-70.0) % Band Neutrophils % 0 % Lymphocytes % (Manual) 48.0 H (13.4-35.0) % Reactive Lymphs % (Man) 0 % Monocytes % (Manual) 9.0 H (0.0-7.3) % Eosinophils % (Manual) 2.0 (0.0-4.3) % Basophils % (Manual) 0 (0.0-1.8) % Metamyelocytes % 0 % Myelocytes % 0 % Promyelocytes % 0 % Blast Cells % 0 % Nucleated RBC % Not Reportable Seg Neutrophils # Man 4.1 (1.8-7.7) K/mm3 Band Neutrophils # 0.0 K/mm3 Lymphocytes # (Manual) 4.8 (1.2-5.4) K/mm3 Abs React Lymphs (Man) 0.0 K/mm3 Monocytes # (Manual) 0.9 H (0.0-0.8) K/mm3 Eosinophils # (Manual) 0.2 (0.0-0.4) K/mm3 Basophils # (Manual) 0.0 (0.0-0.1) K/mm3 Metamyelocytes # 0.0 K/mm3 Myelocytes # 0.0 K/mm3 Promyelocytes # 0.0 K/mm3 Blast Cells # 0.0 K/mm3 WBC Morphology Not Reportable Hypersegmented Neuts Not Reportable Hyposegmented Neuts Not Reportable Hypogranular Neuts Not Reportable Smudge Cells Not Reportable Toxic Granulation Not Reportable Toxic Vacuolation Not Reportable Dohle Bodies Not Reportable Pelger-Huet Anomaly Not Reportable Stuart Rods Not Reportable Platelet Estimate Consistent w auto Clumped Platelets Not Reportable Plt Clumps, EDTA Not Reportable Large Platelets Not Reportable Giant Platelets Not Reportable Platelet Satelliting Not Reportable Plt Morphology Comment Not Reportable RBC Morphology Normal Dimorphic RBCs Not Reportable Polychromasia Not Reportable Hypochromasia Not Reportable Poikilocytosis Not Reportable Anisocytosis Not Reportable Microcytosis Not Reportable Macrocytosis Not Reportable Spherocytes Not Reportable Pappenheimer Bodies Not Reportable Sickle Cells Not Reportable Target Cells Not Reportable Tear Drop Cells Not Reportable Ovalocytes Not Reportable Helmet Cells Not Reportable [place] Bodies Not Reportable [place] Rings Not Reportable Marcus Cells Not Reportable Bite Cells Not Reportable Crenated Cell Not Reportable Elliptocytes Not Reportable Acanthocytes (Spur) Not Reportable Rouleaux Not Reportable Hemoglobin C Crystals Not Reportable Schistocytes Not Reportable Malaria parasites Not Reportable Oz Bodies Not Reportable Hem Pathologist Commnt No Sodium 141 (137-145) mmol/L Potassium 3.8 (3.6-5.0) mmol/L Chloride 104.1 (98-107) mmol/L Carbon Dioxide 22 (22-30) mmol/L Anion Gap 19 mmol/L BUN 9 (7-17) mg/dL Creatinine 0.8 (0.7-1.2) mg/dL Estimated GFR > 60 ml/min BUN/Creatinine Ratio 11.25 % Glucose 86 (65-100) mg/dL Calcium 9.3 (8.4-10.2) mg/dL - Radiology Data Radiology results: report reviewed XRAY left ankle reveals no acute fracture or dislocation and no soft tissue swelling - Medical Decision Making ED course: Patient presented to the emergency room with swelling of left ankle that comes and goes. Says she's been walking a lot and she noticed that her left ankle has been swollen. SHe is also complaining of mild pain to left ankle. able to ambulate without any difficulties. Patient has chronic COPD and she wears oxygen on and off. She denies any chest pain or shortness of breath. Wells criteria reveals severe risk for DVT. Patient and swelling to left ankle resolves when she elevated her feet and it turns when her feet are dependent. Dependent. Diagnostic and labs: CBC and chemistry along with x-ray of ankle within normal limits without any acute findings. His was communicated with Pt and she voiced understanding.. Review of previous visits. She had multiple visits in the past due to multiple comorbidities. has a history of mild mitral valve prolapse, asthma and COPD , O2 dependent and on medication. Patient has a primary care physician was Dr. Kirkpatrick Assessment: Dependent edema left ankle. Arthralgia left ankle, Plan: follow-up with your primary care physician who is Dr. Kirkpatrick. This morning to let him know that urine emergency room and schedule an appointment to see him and no later than 72 hours.Continue to take medication as prescribed by a primary care doctor for multiple chronic medical problems. discharged home in stable condition and voices understanding of discharge instructions Critical care attestation.: If time is entered above; I have spent that time in minutes in the direct care of this critically ill patient, excluding procedure time. ED Disposition Clinical Impression: Swollen L ankle, Arthralgia of left ankle, Dependent edema Disposition: - TO HOME OR SELFCARE Is pt being admited?: No Does the pt Need Aspirin: No Condition: Stable Instructions: Arthralgia (ED) Additional Instructions: Please follow up with a primary care physician for ankle swelling that comes and goes. When you get a chance please elevate your feet as this will help to reduce the swelling near ankle x-ray results shows that you had no fracture or dislocation of ankle and no soft tissue swelling Please limit your salt intake as this can cause you to have swelling Referrals: PHILIP KIRKPATRICK MD [Primary Care Provider] - 09/29/16 Forms: Work/School Release Form(ED)
--- NOTE | 2016-09-26 04:28 | XRay Report ---
FINAL REPORT PROCEDURE: XR ANKLE 3+V LT TECHNIQUE: LEFT ankle radiographs, AP, lateral, and oblique views. CPT 21542 HISTORY: swelling left ankle COMPARISON: No prior studies are available for comparison. FINDINGS: Fracture (s) and/or Dislocation(s): None. Alignment: Normal. Joint space(s): Normal. Soft tissues: Normal. Bone mineralization: Normal. Foreign bodies: None. Calcaneal spurring: None. IMPRESSION: Normal Examination.
== END 2016-09-26 06:08 | disposition home or self-care (01) ==
LOC: ED 23:33
DX: M25.572 Pain in left ankle and joints of left foot (principal); M79.89 Other specified soft tissue disorders; R60.0 Localized edema; K21.9 Gastro-esophageal reflux disease without esophagitis; F17.200 Nicotine dependence, unspecified, uncomplicated; J45.909 Unspecified asthma, uncomplicated; Z88.5 Allergy status to narcotic agent; J44.9 Chronic obstructive pulmonary disease, unspecified
CPT/HCPCS: 36415; 80048; 85007; 85025

== ENCOUNTER 2016-12-08 11:59 | Outpatient (CLI) | payer MEDICAID ==
--- NOTE | 2016-12-08 13:42 | XRay Report ---
Lumbar spine 3 views: History: Low back pain. Findings Normal height of vertebral bodies and intervertebral disc. Sclerotic articular surfaces with early degenerative changes. No fracture or dislocation. Calcified abdominal aorta without evidence of aneurysm. Impression: Degenerative lumbar spine.
--- NOTE | 2016-12-08 13:43 | XRay Report ---
Cervical spine 4 views: History: Cervical lesion. Findings: Normal height of vertebral bodies. Decrease in height of C5-C6 and C6-7 with evidence of cervical spondylosis. No fracture. Normal prevertebral soft tissue Impression: Cervical spondylosis with
--- NOTE | 2016-12-08 13:44 | XRay Report ---
Thoracic spine 3 views: History: Pain in thoracic spine. Findings Scoliosis of thoracolumbar spine with convexity to right. Normal height of vertebral bodies. Decrease in height of mid thoracic intervertebral disc spaces with degenerative changes of the adjacent end plates. No fracture. No paravertebral mass. Impression: Degenerative dorsal spine
== END 2016-12-08 12:00 | disposition home or self-care (01) ==
LOC: XRAY 11:59
PROVIDERS: ATTEND Nurse Practitioner
DX: S39.92XA Unspecified injury of lower back, initial encounter (principal); M41.85 Other forms of scoliosis, thoracolumbar region; M47.892 Other spondylosis, cervical region; M47.896 Other spondylosis, lumbar region; I70.0 Atherosclerosis of aorta; X58.XXXA Exposure to other specified factors, initial encounter; Y93.89 Activity, other specified; Y92.89 Other specified places as the place of occurrence of the external cause; Y99.8 Other external cause status
CPT/HCPCS: 72050; 72072; 72110

== ENCOUNTER 2016-12-21 21:38 | Emergency (ER) | payer MEDICAID ==
[2016-12-22] MEDS: DUONEB *Not for PRN Use IH ONE (00:29)
--- NOTE | 2016-12-22 01:16 | Emergency Department Report ---
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 PT RAN OUT OF HER COMBIVENT AND OTHER MEDS FOR RESPIRATORY ILLNESS. TREATED IN TRIAGE WITH BREATHING TREATMENT WITH IMPROVEMENT MD Complaint: cough -: Gradual Severity: moderate Severity scale (0 -10): 0 Consistency: intermittent Improves With: other (NEBULIZER) Worsens With: nothing Context: sick contacts - Related Data Home Medications Medication Instructions Recorded Confirmed Last Taken Tiotropium Br/Olodaterol HCl 2 gm IH BID 10/29/14 09/04/16 09/03/16 [Stiolto Respimat Inhal [place]] 2gm Arformoterol Tartrate(Nf) [Brovana 1 puff INHALATION DAILY 07/22/16 09/04/16 (Nf)] 1 puff Ipratropium/Albuterol Sulfate 3 ml INHALATION BID 09/04/16 09/04/16 09/03/16 [Iprat-Albut 0.5-3(2.5) mg/3 ml] 3ml Previous Rx's Medication Instructions Recorded Last Taken Type predniSONE [Deltasone] 3 tab PO QDAY #15 tab 07/06/16 09/03/16 Rx 3 tab Azithromycin 250 mg PO QDAY #6 tablet 12/22/16 Unknown Rx Dexamethasone 6 mg PO ONCE #3 tablet 12/22/16 Unknown Rx Ipratropium/Albuterol Sulfate 1 spray IH QID #1 mist.inhal 12/22/16 Unknown Rx [Combivent Respimat] Allergies Allergy/AdvReac Type Severity Reaction Status Date / Time morphine Allergy Rash Verified 12/21/14 06:53 ED Review of Systems ROS: Stated complaint: HEAD & CHEST CONGESTION Other details as noted in HPI Constitutional: denies: chills, fever Eyes: denies: eye pain, eye discharge, vision change ENT: denies: ear pain, throat pain Respiratory: cough. denies: orthopnea, shortness of breath, SOB with exertion, wheezing Cardiovascular: denies: chest pain, palpitations Endocrine: no symptoms reported Gastrointestinal: other (LOSS OF APPETITE). denies: abdominal pain, nausea, diarrhea Genitourinary: denies: urgency, dysuria, discharge Musculoskeletal: denies: back pain, joint swelling, arthralgia Skin: denies: rash, lesions Neurological: denies: headache, weakness, paresthesias Psychiatric: denies: anxiety, depression Hematological/Lymphatic: denies: easy bleeding, easy bruising ED Past Medical Hx - Past Medical History Hx Hypertension: No Hx CVA: No Hx Heart Attack/AMI: No Hx Congestive Heart Failure: No Hx Diabetes: No Hx Deep Vein Thrombosis: No Hx Pulmonary Embolism: No Hx GERD: Yes Hx Liver Disease: No Hx Renal Disease: No Hx Sickle Cell Disease: No Hx Arthritis: No Hx Headaches / Migraines: No Hx Seizures: No Hx Kidney Stones: No Hx Psychiatric Treatment: No Hx Asthma: Yes Hx COPD: Yes Hx Tuberculosis: No Hx Dementia: No Hx HIV: No Additional medical history: gall stones, fibroids, MVP - Surgical History Hx Coronary Stent: No Hx Open Heart Surgery: No Hx Pacemaker: No Hx Internal Defibrillator: No Hx Cholecystectomy: No Hx Appendectomy: No Hx Breast Surgery: No Additional Surgical History: fibroid removal - Family History Family history: diabetes, hypertension - Social History Smoking Status: Current Every Day Smoker Substance Use Type: None - Medications Home Medications: Home Medications Medication Instructions Recorded Confirmed Last Taken Type Tiotropium Br/Olodaterol HCl 2 gm IH BID 10/29/14 09/04/16 09/03/16 History [Stiolto Respimat Inhal [place]] 2gm predniSONE [Deltasone] 3 tab PO QDAY #15 tab 07/06/16 09/04/16 09/03/16 Rx 3 tab Arformoterol Tartrate(Nf) [Brovana 1 puff INHALATION DAILY 07/22/16 09/04/16 History (Nf)] 1 puff Ipratropium/Albuterol Sulfate 3 ml INHALATION BID 09/04/16 09/04/16 09/03/16 History [Iprat-Albut 0.5-3(2.5) mg/3 ml] 3ml Azithromycin 250 mg PO QDAY #6 tablet 12/22/16 Unknown Rx Dexamethasone 6 mg PO ONCE #3 tablet 12/22/16 Unknown Rx Ipratropium/Albuterol Sulfate 1 spray IH QID #1 mist.inhal 12/22/16 Unknown Rx [Combivent Respimat] ED Physical Exam - General Limitations: No Limitations General appearance: alert, in no apparent distress - Head Head exam: Present: atraumatic, normocephalic - Eye Eye exam: Present: normal appearance - ENT ENT exam: Present: mucous membranes moist - Neck Neck exam: Present: normal inspection - Respiratory Respiratory exam: Present: normal lung sounds bilaterally, other (COUGHING). Absent: respiratory distress, wheezes, rales, rhonchi, stridor - Cardiovascular Cardiovascular Exam: Present: regular rate, normal rhythm. Absent: systolic murmur, diastolic murmur, rubs, gallop - GI/Abdominal GI/Abdominal exam: Present: soft, tenderness (OVER GALLBLADDER AND UNBILICAL HERNIA), normal bowel sounds. Absent: hyperactive bowel sounds, hypoactive bowel sounds - Rectal Rectal exam: Present: deferred - Extremities Exam Extremities exam: Present: normal inspection - Back Exam Back exam: Present: normal inspection - Neurological Exam Neurological exam: Present: alert, oriented X3 - Psychiatric Psychiatric exam: Present: normal affect, normal mood - Skin Skin exam: Present: warm, dry, intact, normal color. Absent: rash ED Course Vital Signs 12/22/16 12/22/16 00:27 00:32 Pulse Rate [ 111 H 101 H Anterior Bilateral Throughout] Respiratory 18 18 Rate [Anterior Bilateral Throughout] Critical care attestation.: If time is entered above; I have spent that time in minutes in the direct care of this critically ill patient, excluding procedure time. ED Disposition Clinical Impression: Bronchitis Disposition: [id number] TO HOME OR SELFCARE Is pt being admited?: No Does the pt Need Aspirin: No Condition: Stable Instructions: Chronic Bronchitis (ED) Prescriptions: Azithromycin 250 mg PO QDAY #6 tablet Dexamethasone 6 mg PO ONCE #3 tablet Ipratropium/Albuterol Sulfate [Combivent Respimat] 1 spray IH QID #1 mist.inhal
[2016-12-22 02:26] VITALS: BP 103/62
--- NOTE | 2016-12-22 07:26 | XRay Report ---
CHEST XRAY, 2 VIEWS: History: Cough. Findings: There is mild cardiomegaly. Pulmonary vessels are within normal limits. The lungs are clear and fully expanded. No infiltrate, pleural effusion or pneumothorax. Normal thoracic cage. IMPRESSION: Cardiomegaly.
== END 2016-12-22 01:50 | disposition home or self-care (01) ==
LOC: ED 21:38
DX: J40 Bronchitis, not specified as acute or chronic (principal); F17.200 Nicotine dependence, unspecified, uncomplicated; J45.909 Unspecified asthma, uncomplicated; J44.9 Chronic obstructive pulmonary disease, unspecified; K21.9 Gastro-esophageal reflux disease without esophagitis; Z88.8 Allergy status to other drugs, medicaments and biological substances
CPT/HCPCS: 71020; 94640

== ENCOUNTER 2017-04-23 07:23 | Outpatient (CLI) | payer MEDICAID ==
--- NOTE | 2017-04-23 09:40 | Ultrasound Report ---
ULTRASOUND ABDOMEN LIMITED: TECHNIQUE: Transabdominal ultrasound with color Doppler interrogation. HISTORY: right upper quadrant abdominal pain. COMPARISON: none. FINDINGS: LIVER: Normal. BILIARY SYSTEM: There are numerous shadowing gallstones within a contracted gallbladder. The CBD measures 3 mm. PANCREAS: Normal. RIGHT KIDNEY: Normal. PROXIMAL AORTA: Normal. ASCITES: None. IMPRESSION: Cholelithiasis.
--- NOTE | 2017-04-23 16:21 | Mammography Report ---
BILATERAL DIGITAL SCREENING MAMMOGRAM with CAD: 04/23/17 07:23:00 CLINICAL: Routine screening. COMPARISON:None available. She doesn't remember where she previously had a mammogram. FINDINGS: The breasts are heterogeneously dense, which may or small masses. A right asymmetry on the MLO view requires additional imaging.No architectural distortion or suspicious calcifications.The left breast is negative. IMPRESSION: Right asymmetry requiring further workup. BI-RADS CATEGORY: 0 -- Additional Imaging Evaluation Required RECOMMENDATION: Recall for right mediolateral and spot compression MLO views and right breast ultrasound if needed. ACR BI-RADS MAMMOGRAPHIC CODES: 0 = Needs additional imaging evaluation; 1 = Negative; 2 = Benign; 3 = Probably benign; 4 = Suspicious; 5 = Malignant; 6 = Known biopsy-proven malignancy COMMENT: 1. Dense breast tissue, i.e., adenosis, fibrocystic changes, etc., may obscure an underlying neoplasm. 2. Approximately 10% of cancers are not detected with mammography. 3. A negative mammography report should not delay biopsy if a clinically suspicious mass is present. COMMENT: Patient follow-up letters are generated via our [employer] application.
== END 2017-04-23 07:24 | disposition home or self-care (01) ==
LOC: MAMMO 07:23
PROVIDERS: ATTEND Nurse Practitioner
DX: Z12.31 Encounter for screening mammogram for malignant neoplasm of breast (principal); K80.20 Calculus of gallbladder without cholecystitis without obstruction
CPT/HCPCS: 76705; 77067

== ENCOUNTER 2017-06-18 12:10 | Outpatient (CLI) | payer MEDICAID ==
--- NOTE | 2017-06-18 13:56 | Mammography Report ---
Right mammogram and right breast ultrasound: Recall for asymmetry of the right breast. Additional spot compression lateral and CC images does demonstrate a heterogeneous pattern. The asymmetry appears to correspond to normal fibroglandular tissue and is less evident on the additional images. Ultrasound of the upper outer breast which would correspond to its location shows no echogenic abnormality in this region. A benign-appearing lymph node is present in the axilla. Impression: Benign breast pattern. Recommendation: Annual mammogram followup. BI-RADS CATEGORY: 1 = Negative ACR BI-RADS MAMMOGRAPHIC CODES: 0 = Needs additional imaging evaluation; 1 = Negative; 2 = Benign; 3 = Probably benign; 4 = Suspicious; 5 = Malignant; 6 = Known biopsy-proven malignancy COMMENT: 1. Dense breast tissue, i.e., adenosis, fibrocystic changes, etc., may obscure an underlying neoplasm. 2. Approximately 10% of cancers are not detected with mammography. 3. A negative mammography report should not delay biopsy if a clinically suspicious mass is present.
== END 2017-06-18 12:11 | disposition home or self-care (01) ==
LOC: MAMMO 12:10
PROVIDERS: ATTEND Internal Medicine
DX: R92.8 Other abnormal and inconclusive findings on diagnostic imaging of breast (principal)

== ENCOUNTER 2017-06-22 12:22 | Outpatient (CLI) | payer MEDICAID ==
[2017-06-22] MEDS ORDERED: VALIUM PO NR (14:35)
--- NOTE | 2017-06-22 15:20 | Cat Scan Report ---
CT ABDOMEN PELVIS WITHOUT CONTRAST: HISTORY: abdominal pain. COMPARISON: none. TECHNIQUE: Helical CT in 1.25mm intervals without IV contrast. Sagittal and coronal reconstructions. FINDINGS: Lung bases: The visualized lung bases are adequately aerated. Heart size is mildly enlarged. There is a large pericardial effusion measuring up to 2 cm in thickness. No pericardial calcifications or nodularity is appreciated on noncontrast CT. Liver: Normal. Biliary system: There appear to be 3 cholesterol gallstones within the gallbladder measuring up to 1.4 cm in diameter. No abnormal distention or wall thickening. The CBD is mildly prominent measuring 7.7 mm. No obvious choledocholithiasis. Pancreas: Normal. Spleen: Normal. Kidneys/ureters/bladder: The right kidney is normal size, contour and position. 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 No focal renal lesion, nephrolithiasis or hydronephrosis. The bladder is empty. Adrenal glands: Normal. Aorta: Moderate aortic and common iliac calcifications are noted distally. No aneurysm. Intestines: Unremarkable. Appendix: Normal. Pelvic viscera: Normal. Ascites: None. Adenopathy: None. Musculoskeletal: Mild thoracolumbar spondylosis. Mild scoliosis. No fracture or suspicious bony lesion. An umbilical hernia with a 2.8 cm neck is identified containing fat. IMPRESSION: No acute inflammatory process. Cholelithiasis. The common bile duct is mildly dilated at 7.7 mm. No obvious choledocholithiasis. Left renal ectopia. Umbilical hernia containing fat. Large pericardial effusion which is essentially unchanged since the CT chest with contrast dated 06/06/16. Scoliosis.
== END 2017-06-22 12:23 | disposition home or self-care (01) ==
LOC: CT 12:22
PROVIDERS: ATTEND Surgery
DX: K80.20 Calculus of gallbladder without cholecystitis without obstruction (principal); K42.9 Umbilical hernia without obstruction or gangrene; I51.7 Cardiomegaly; I31.3 Pericardial effusion (noninflammatory); Q63.2 Ectopic kidney; I70.0 Atherosclerosis of aorta; M47.895 Other spondylosis, thoracolumbar region; M41.85 Other forms of scoliosis, thoracolumbar region
CPT/HCPCS: 74176

== ENCOUNTER 2017-09-20 20:15 | Emergency (ER) | payer MEDICAID ==
[2017-09-20] MEDS ORDERED: NACL 0.9% 1000 ML 1,000 ML IV ONE (20:33)
[2017-09-20 20:54] LABS: Basophils # (Auto) 0.1 K/mm3 (0.0-0.1); Basophils % (Auto) 0.8 % (0.0-1.8); Eosinophils # (Auto) 0.3 K/mm3 (0.0-0.4); Eosinophils % (Auto) 4.1 % (0.0-4.3); Hemoglobin 12.5 gm/dl (10.1-14.3); Lymphocytes # (Auto) 2.8 K/mm3 (1.2-5.4); Lymphocytes % (Auto) 40.5 % (13.4-35.0); Mean Corpuscular HGB Conc 35 % (30-34); Mean Corpuscular Hemoglobin 29 pg (28-32); Mean Corpuscular Volume 84 fl (79-97); Monocytes # (Auto) 0.6 K/mm3 (0.0-0.8); Monocytes % (Auto) 8.2 % (0.0-7.3); Platelet Count 267 K/mm3 (140-440)
[2017-09-20 21:08] LABS: Alanine Aminotransferase 11 units/L (7-56); Albumin 4.3 g/dL (3.9-5); BUN/Creatinine Ratio 11; Blood Urea Nitrogen 9 mg/dL (7-17); Calcium 9.4 mg/dL (8.4-10.2); Hemolysis Index 8; Lipase 28 units/L (13-60)
[2017-09-21 01:02] LABS: Bilirubin,Urine NEG (Negative); Blood,Urine NEG (Negative); Color,Urine Yellow (Yellow); Mucus,Urine FEW /HPF; Protein,Urine <15 mg/dL mg/dL (Negative); Urobilinogen,Urine < 2.0 mg/dL (<2.0); WBC,Urine < 1.0 /HPF (0.0-6.0)
[2017-09-21] MEDS ORDERED: MOTRIN PO ONE (01:10)
[2017-09-21 01:14] VITALS: BP 142/81
--- NOTE | 2017-09-21 01:25 | Emergency Department Report ---
HPI - General Chief Complaint: Abdominal Pain Time Seen by Provider: 09/21/17 00:50 - HPI HPI: The patient is a 56-year-old female presents for evaluation of abdominal pain. The patient has a history of chronic abdominal pain secondary to long-standing ventral abdominal wall hernia. The patient reports recurrence of abdominal pain for the past one day, moderate in severity, crampy in quality, exacerbated with bending over. The patient denies fever, trauma to the abdomen, nausea, vomiting, chills, night sweats, diarrhea, blood in the stool, dark tarry stool, dysuria, hematuria, flank pain, genital discharge, inability to pass flatus. She reports passing a normal bowel movement earlier today. ED Past Medical Hx - Past Medical History Hx Hypertension: No Hx CVA: No Hx Heart Attack/AMI: No Hx Congestive Heart Failure: No Hx Diabetes: No Hx Deep Vein Thrombosis: No Hx Pulmonary Embolism: No Hx GERD: Yes Hx Liver Disease: No Hx Renal Disease: No Hx Sickle Cell Disease: No Hx Arthritis: No Hx Headaches / Migraines: No Hx Seizures: No Hx Kidney Stones: No Hx Psychiatric Treatment: No Hx Asthma: Yes Hx COPD: Yes Hx Tuberculosis: No Hx Dementia: No Hx HIV: No Additional medical history: gall stones, fibroids, MVP, myomectomy - Surgical History Hx Coronary Stent: No Hx Open Heart Surgery: No Hx Pacemaker: No Hx Internal Defibrillator: No Hx Cholecystectomy: No Hx Appendectomy: No Hx Breast Surgery: No Additional Surgical History: fibroid removal - Social History Smoking Status: Current Every Day Smoker Substance Use Type: None - Medications Home Medications: Home Medications Medication Instructions Recorded Confirmed Last Taken Type Tiotropium Br/Olodaterol HCl 2 gm IH BID 10/29/14 09/04/16 09/03/16 History [Stiolto Respimat Inhal [place]] 2gm predniSONE [Deltasone] 3 tab PO QDAY #15 tab 07/06/16 09/04/16 09/03/16 Rx 3 tab Arformoterol Tartrate(Nf) [Brovana 1 puff INHALATION DAILY 07/22/16 09/04/16 History (Nf)] 1 puff Ipratropium/Albuterol Sulfate 3 ml INHALATION BID 09/04/16 09/04/16 09/03/16 History [Iprat-Albut 0.5-3(2.5) mg/3 ml] 3ml Azithromycin 250 mg PO QDAY #6 tablet 12/22/16 Unknown Rx Dexamethasone 6 mg PO ONCE #3 tablet 12/22/16 Unknown Rx Ipratropium/Albuterol Sulfate 1 spray IH QID #1 mist.inhal 12/22/16 Unknown Rx [Combivent Respimat] Cyclobenzaprine HCl [Flexeril 5 MG 5 mg PO Q8HR PRN #20 tab 09/21/17 Unknown Rx TAB] ED Review of Systems ROS: Stated complaint: ABD PAIN Other details as noted in HPI Constitutional: denies: fever ENT: denies: throat or neck pain Respiratory: denies: cough, shortness of breath Cardiovascular: denies: chest pain Endocrine: denies unexplained weight loss or gain Gastrointestinal: reports abdominal pain, nausea Genitourinary: denies: dysuria Musculoskeletal: denies: leg swelling Skin: denies: rash Neurological: denies: headache Hematological/Lymphatic: denies: easy bleeding or easy bruising Psych: denies sadness or hopelessness Physical Exam - Physical Exam Vital Signs: Vital Signs 09/20/17 20:20 Temperature 98.3 F Pulse Rate 86 Respiratory 18 Rate Blood Pressure 127/62 O2 Sat by Pulse 96 Oximetry Physical Exam: General: well-nourished, well-developed, no acute distress Head: Normocephalic, atraumatic Eyes: normal sclera ENT: Mucous membranes are pink and moist Neck: trachea midline, neck supple, No neck stiffness, no cervical adenopathy Respiratory: Breath sounds equal bilaterally, no wheezing, rales, or rhonchi Cardio: S1 and S2 present, no murmurs, rubs, gallops, capillary refill is brisk Abdomen: Normoactive bowel sounds, soft abdomen, periumbilical hernia present, easily reducible at bedside, periumbilical tenderness to palpation present, no rigidity, no guarding or rebound tenderness Chest WALL/Back: No tenderness to palpation of the chest wall, no CVA tenderness with percussion Musc: No pitting edema Skin: No rash Neuro: no facial drooping, normal speech Psych: Normal affect ED Course Vital Signs 09/20/17 20:20 Temperature 98.3 F Pulse Rate 86 Respiratory 18 Rate Blood Pressure 127/62 O2 Sat by Pulse 96 Oximetry ED Medical Decision Making - Lab Data Result diagrams: 09/20/17 20:41 09/20/17 20:41 - Medical Decision Making The patient was seen and examined by myself. The patient is placed on a regional merchandising manager and continuous pulse ox. On initial evaluation, the patient was found to be in no distress. Evaluation orders are placed. IV access is established and the patient is given 1 L normal saline fluid bolus and Zofran for nausea, and IV analgesic for pain. Lab results were non-concerning including WBC, hemoglobin, hematocrit, electrolytes, renal function, LFTs, lipase, and urinalysis. The patient was reevaluated and reported that their symptoms were markedly improved. The patient remains with a soft abdomen, without rebound, guarding, rigidity, abdomen nonacute. The patient is stable for discharge with outpatient follow-up. The patient is given follow-up and return instructions. The patient expressed understanding and agreed with the plan. The patient is discharged in stable condition. Critical care attestation.: If time is entered above; I have spent that time in minutes in the direct care of this critically ill patient, excluding procedure time. ED Disposition Clinical Impression: Abdominal pain, acute, periumbilical, Umbilical hernia without obstruction and without gangrene Disposition: -01 TO HOME OR SELFCARE Is pt being admited?: No Does the pt Need Aspirin: No Condition: Stable Instructions: Abdominal Pain (ED), Umbilical Hernia (ED), Ventral Hernia (ED) Referrals: MARCO ANTONIO PORTILLO MD [Referring] - 3-5 Days Time of Disposition: 01:12
== END 2017-09-21 01:26 | disposition home or self-care (01) ==
LOC: ED 20:15
DX: K42.9 Umbilical hernia without obstruction or gangrene (principal); K21.9 Gastro-esophageal reflux disease without esophagitis; J44.9 Chronic obstructive pulmonary disease, unspecified; F17.200 Nicotine dependence, unspecified, uncomplicated
CPT/HCPCS: 36415; 80053; 81001; 83690; 84703; 85025; 99283

== ENCOUNTER 2017-10-12 09:16 | Outpatient (CLI) | payer MEDICAID | END 2017-10-12 09:17 | disposition home or self-care (01) | LOC: ECHO 09:16 | PROVIDERS: ATTEND Internal Medicine | DX: I31.3 Pericardial effusion (noninflammatory) (principal); I37.1 Nonrheumatic pulmonary valve insufficiency; I27.20 Pulmonary hypertension, unspecified; J44.1 Chronic obstructive pulmonary disease with (acute) exacerbation; K21.9 Gastro-esophageal reflux disease without esophagitis; F41.9 Anxiety disorder, unspecified; F17.210 Nicotine dependence, cigarettes, uncomplicated; Z88.6 Allergy status to analgesic agent | CPT/HCPCS: 93306 ==

== ENCOUNTER 2017-12-14 01:25 | Emergency (ER) | payer MEDICARE, MEDICAID ==
[2017-12-14 01:38] VITALS: BP 136/70
[2017-12-14 04:33] LABS: Basophils # (Auto) 0.1 K/mm3 (0.0-0.1); Basophils % (Auto) 1.3 % (0.0-1.8); Eosinophils # (Auto) 0.1 K/mm3 (0.0-0.4); Eosinophils % (Auto) 1.6 % (0.0-4.3); Hematocrit 38.6 % (30.3-42.9); Lymphocytes # (Auto) 1.5 K/mm3 (1.2-5.4); Lymphocytes % (Auto) 24.5 % (13.4-35.0); Mean Corpuscular HGB Conc 34 % (30-34); Mean Corpuscular Hemoglobin 29 pg (28-32); Mean Corpuscular Volume 86 fl (79-97); Monocytes # (Auto) 0.6 K/mm3 (0.0-0.8); Monocytes % (Auto) 10.6 % (0.0-7.3); Platelet Count 260 K/mm3 (140-440); Red Blood Count 4.51 M/mm3 (3.65-5.03)
[2017-12-14 04:54] LABS: BUN/Creatinine Ratio 10; Blood Urea Nitrogen 9 mg/dL (7-17); Calcium 9.3 mg/dL (8.4-10.2); Hemolysis Index 8
== END 2017-12-14 05:15 | disposition left against medical advice (07) ==
LOC: ED 01:25
DX: F41.9 Anxiety disorder, unspecified (principal); Z53.21 Procedure and treatment not carried out due to patient leaving prior to being seen by health care provider
CPT/HCPCS: 36415; 80048; 85025; 93005; 93010; G0480; 80320

== ENCOUNTER 2018-03-15 18:49 | Inpatient (IN) | payer MEDICARE ==
[2018-03-15] MEDS ORDERED: CARDIZEM IV ONE ×2 (19:25→20:03)
[2018-03-15] MEDS ORDERED: NACL 0.9% 500 ML 500 ML IV ONE (19:25)
[2018-03-15 20:08] LABS: Basophils # (Auto) 0.1 K/mm3 (0.0-0.1); Basophils % (Auto) 0.9 % (0.0-1.8); Eosinophils # (Auto) 0.1 K/mm3 (0.0-0.4); Eosinophils % (Auto) 0.8 % (0.0-4.3); Hematocrit 37.1 % (30.3-42.9); Hemoglobin 12.2 gm/dl (10.1-14.3); Lymphocytes # (Auto) 2.6 K/mm3 (1.2-5.4); Lymphocytes % (Auto) 32.4 % (13.4-35.0); Mean Corpuscular HGB Conc 33 % (30-34); Mean Corpuscular Volume 89 fl (79-97); Monocytes # (Auto) 0.7 K/mm3 (0.0-0.8); Monocytes % (Auto) 8.2 % (0.0-7.3); Platelet Count 281 K/mm3 (140-440); Red Blood Count 4.15 M/mm3 (3.65-5.03); Red Cell Distribution Width 15.6 % (13.2-15.2)
--- NOTE | 2018-03-15 20:14 | Emergency Department Report ---
HPI - General Chief Complaint: Dyspnea/Respdistress Time Seen by Provider: 03/15/18 19:25 - HPI HPI: 57-year-old female presents to the emergency department via EMS from home with complaint of shortness of breath has been going on for the past 1-2 days. Patient says that sometimes she is able to get to sleep but then wake up feeling like she is gasping for breath. She's been having some intermittent chest pain with this. She has a past medical history of asthma, COPD on 2 L oxygen via nasal cannula, GERD, gallstones, mitral valve prolapse. Patient's primary care physician is Dr. Huston, audit practice intern is Dr. Kirkpatrick and cardi ologist is Dr. Jose. No recent travel or sick contacts at home. She has not taken anything for her symptoms prior to arrival. She called the office of her audit practice intern and was told to come to the emergency department. Through triage, the patient presented with a irregular heart rate and tachycardia. ED Past Medical Hx - Past Medical History Hx Hypertension: No Hx CVA: No Hx Heart Attack/AMI: No Hx Congestive Heart Failure: No Hx Diabetes: No Hx Deep Vein Thrombosis: No Hx Pulmonary Embolism: No Hx GERD: Yes Hx Liver Disease: No Hx Renal Disease: No Hx Sickle Cell Disease: No Hx Arthritis: No Hx Headaches / Migraines: No Hx Seizures: No Hx Kidney Stones: No Hx Psychiatric Treatment: No Hx Asthma: Yes Hx COPD: Yes (O2-2lpm continuously) Hx Tuberculosis: No Hx Dementia: No Hx HIV: No Additional medical history: gall stones, fibroids, MVP, myomectomy - Surgical History Hx Coronary Stent: No Hx Open Heart Surgery: No Hx Pacemaker: No Hx Internal Defibrillator: No Hx Cholecystectomy: No Hx Appendectomy: No Hx Breast Surgery: No Additional Surgical History: fibroid removal - Social History Smoking Status: Current Every Day Smoker Substance Use Type: None - Medications Home Medications: Home Medications Medication Instructions Recorded Confirmed Last Taken Type Tiotropium Br/Olodaterol HCl 2 gm IH BID 10/29/14 03/15/18 03/14/18 History [Stiolto Respimat Inhal [place]] Arformoterol Tartrate(Nf) [Brovana 1 puff INHALATION DAILY 07/22/16 03/15/18 03/14/18 History (Nf)] Ipratropium/Albuterol Sulfate 3 ml INHALATION BID 09/04/16 03/15/18 03/14/18 History [Iprat-Albut 0.5-3(2.5) mg/3 ml] Dexamethasone 6 mg PO ONCE #3 tablet 12/22/16 03/15/18 03/14/18 Rx Ipratropium/Albuterol Sulfate 1 spray IH QID #1 mist.inhal 12/22/16 03/15/18 03/14/18 Rx [Combivent Respimat] Cyclobenzaprine HCl [Flexeril 5 MG 5 mg PO Q8HR PRN #20 tab 09/21/17 03/15/18 03/14/18 Rx TAB] ALBUTEROL NEB's [Proventil 0.083% 5 mg IH TID PRN #20 neb 02/27/18 03/15/18 03/14/18 Rx NEBS] Benzonatate [Tessalon Perles] 100 mg PO Q8HR #10 capsule 02/27/18 03/15/18 03/14/18 Rx Fluconazole [Diflucan TAB] 150 mg PO ONCE #2 tablet 02/27/18 03/15/18 03/14/18 Rx Furosemide [Lasix] 20 mg PO DAILY #7 tablet 02/27/18 03/15/18 03/15/18 Rx levoFLOXacin [Levaquin TAB] 500 mg PO QDAY #7 tablet 02/27/18 03/15/18 03/14/18 Rx predniSONE [Deltasone] 20 mg PO QDAY #5 tab 02/27/18 03/15/18 03/14/18 Rx Aspirin [Aspirin BABY CHEW TAB] 81 mg PO QDAY 03/15/18 03/15/18 03/15/18 History ED Review of Systems ROS: Stated complaint: SOB/CONGENITAL HEART FAILURE Other details as noted in HPI Comment: All other systems reviewed and negative Constitutional: denies: chills, fever Eyes: denies: eye pain, vision change ENT: denies: ear pain, throat pain Respiratory: cough, shortness of breath Cardiovascular: chest pain, palpitations Gastrointestinal: denies: nausea, vomiting Genitourinary: denies: dysuria, discharge Musculoskeletal: denies: back pain, arthralgia Skin: denies: rash, lesions Neurological: denies: headache, weakness Physical Exam - Physical Exam Vital Signs: Vital Signs 03/15/18 03/15/18 03/15/18 18:58 19:20 19:25 Temperature 98.6 F Pulse Rate 118 H 185 H 166 H Respiratory 24 20 35 H Rate Blood Pressure 93/58 108/70 O2 Sat by Pulse 98 96 Oximetry 03/15/18 03/15/18 03/15/18 19:30 19:35 19:39 Temperature Pulse Rate 154 H 168 H Respiratory 28 H 20 28 H Rate Blood Pressure 107/66 113/72 O2 Sat by Pulse 97 97 94 Oximetry 03/15/18 20:10 Temperature Pulse Rate 146 H Respiratory Rate Blood Pressure 122/84 O2 Sat by Pulse Oximetry Physical Exam: GENERAL: The patient is well-developed well-nourished. HEENT: Normocephalic. Atraumatic. Patient has moist mucous membranes. EYES: Extraocular motions are intact. Pupils are equal and reactive to light bilaterally. NECK: Supple. Trachea is midline. CHEST/LUNGS: Mild coarse breath sounds with chest. No tachypnea or accessory muscle use. There is no respiratory distress noted. HEART/CARDIOVASCULAR: Irregularly irregular with severe tachycardia. ABDOMEN: Abdomen is soft, nontender. Patient has normal bowel sounds. There is no abdominal distention. SKIN: Skin is warm and dry. NEURO: The patient is awake, alert, and oriented. The patient is cooperative. The patient has no focal neurologic deficits. The patient has normal speech. MUSCULOSKELETAL: There is no tenderness or deformity. There is no evidence of acute injury. ED Course Vital Signs 03/15/18 03/15/18 03/15/18 18:58 19:20 19:25 Temperature 98.6 F Pulse Rate 118 H 185 H 166 H Respiratory 24 20 35 H Rate Blood Pressure 93/58 108/70 O2 Sat by Pulse 98 96 Oximetry 03/15/18 03/15/18 03/15/18 19:30 19:35 19:39 Temperature Pulse Rate 154 H 168 H Respiratory 28 H 20 28 H Rate Blood Pressure 107/66 113/72 O2 Sat by Pulse 97 97 94 Oximetry 03/15/18 20:10 Temperature Pulse Rate 146 H Respiratory Rate Blood Pressure 122/84 O2 Sat by Pulse Oximetry - Consultations Consultation #1: I spoke with the lens inserter product inspection coordinator for [facility], Dr. Benítez, listen to the case presentation regarding the new onset atrial fibrillation and CHF exacerbation and they will see the patient as a consult tomorrow. 03/16/18 01:26 ED Medical Decision Making - Lab Data Result diagrams: 03/15/18 19:47 03/15/18 19:47 - EKG Data -: EKG Interpreted by Me - EKG Data When compared to previous EKG there are: changes noted (previous EKG did not show any signs of atrial fibrillation) Interpretation: other (atrial fibrillation with RVR at 179 bpm) - Radiology Data Radiology results: report reviewed EXAM: XR CHEST 1V AP HISTORY: Chest Pain TECHNIQUE: Frontal portable view of the chest Comparison: Chest x-ray dated February 27, 2018 FINDINGS: There has been interval increase in the size of the bilateral pleural effusions, left greater than right, with pulmonary consolidation in both lung bases. The cardiac silhouette is enlarged similar in appearance to the previous study. There is atherosclerotic vascular calcification of the thoracic aorta. The bony structures are not significantly changed. IMPRESSION: 1. Interval increase in size of bilateral pleural fluid collections, left greater than right, with pulmonary consolidation in both lung bases. CT chest may be helpful for further evaluation 2. Enlarged cardiac silhouette not significantly changed. Transcribed By: ED Dictated By: GERMÁN BEST MD Electronically Authenticated By: GERMÁN BEST MD Signed Date/Time: 03/15/182117 - Medical Decision Making Patient presents with appears to be new onset atrial fibrillation with severe RVR. Patient was given a few doses of Cardizem bolus followed by a drip. Patient's labs were mostly unremarkable except for a elevated d-dimer level and a BNP of about 2400. Chest x-ray does show some pleural effusions and with the elevated BNP level the patient has some level of CHF exacerbation. The Cardizem drip helped with rate control but she did not convert back to a sinus rhythm. The patient also appears to have some issues with anxiety and/or panic attacks. Just prior to the CT angiography of the chest, the patient had a short panic attack. She was given some Ativan and did calm down/improved, but no longer wanted to go for the CT angiography. However due to the atrial fibrillation, the patient is being placed on heparin anyways at the same dosing that would be used for a pulmonary embolism. First troponin negative. EKG did not show signs of ST elevation [place]. Since the patient was on a titratable drip, she was admit bernice to the ICU and was accepted for admission by the hospitalist, Dr. Liang. - Differential Diagnosis dysrhythmia, DE, PE, CHF, COPD Critical Care Time: Yes Critical care time in (mins) excluding proc time.: 35 Critical care attestation.: If time is entered above; I have spent that time in minutes in the direct care of this critically ill patient, excluding procedure time. Critical care time is spent on this patient during her initial evaluation, multiple evaluations, ordering and interpretation of labs and imaging, ordering and titration of medication, discussion with the lens inserter and hospitalist. Critical Care Time: 35 minutes ED Disposition Clinical Impression: Shortness of breath, Atrial fibrillation with rapid ventricular response, Acute chest pain CHF (congestive heart failure) Qualifiers: Heart failure type: unspecified Heart failure chronicity: acute on chronic Qualified Code(s): I50.9 - Heart failure, unspecified Disposition: -09 OP ADMIT IP TO THIS HOSP Is pt being admited?: Yes Condition: Serious
[2018-03-15 20:18] LABS: INR 1.16 (0.87-1.13)
[2018-03-15 20:19] LABS: Partial Thromboplastin Time 28.4 Sec. (24.2-36.6)
[2018-03-15 20:44] LABS: Alanine Aminotransferase 51 units/L (7-56); Albumin 3.7 g/dL (3.9-5); BUN/Creatinine Ratio 11; Blood Urea Nitrogen 10 mg/dL (7-17); Calcium 8.6 mg/dL (8.4-10.2); Hemolysis Index 10
[2018-03-15] MEDS: CARDIZEM/D5W 100MG/100ML 100 MG/100 ML BAG IV SCH (21:08)
--- NOTE | 2018-03-15 21:18 | XRay Report ---
FINAL REPORT EXAM: XR CHEST 1V AP HISTORY: Chest Pain TECHNIQUE: Frontal portable view of the chest Comparison: Chest x-ray dated February 27, 2018 FINDINGS: There has been interval increase in the size of the bilateral pleural effusions, left greater than ri ght, with pulmonary consolidation in both lung bases. The cardiac silhouette is enlarged similar in appearance to the previous study. There is atherosclerotic vascular calcification of the thoracic aorta. The bony structures are not significantly changed. IMPRESSION: 1. Interval increase in size of bilateral pleural fluid collections, left greater than right, with pu lmonary consolidation in both lung bases. CT chest may be helpful for further evaluation 2. Enlarged cardiac silhouette not significantly changed.
[2018-03-15] MEDS ORDERED: ATIVAN ONE (21:51)
[2018-03-15] MEDS ORDERED: ATIVAN IV ONE (21:52)
[2018-03-15] MEDS ORDERED: HEPARIN 10,000 UNITS/10 ML IV ONE (22:42)
[2018-03-15] MEDS: HEPARIN/ 0.45% NACL-25,000 UNIT/500 ML 25,000 UNIT/500 ML BAG IV SCH (23:05)
[2018-03-16] MEDS ORDERED: ATIVAN IV ONE (00:14)
[2018-03-16] MEDS ORDERED: ZOFRAN IV PRN (00:41)
[2018-03-16] MEDS ORDERED: TYLENOL PO PRN (00:41)
[2018-03-16] MEDS ORDERED: DUONEB *Not for PRN Use IH ONE ×2 (01:29→01:38)
[2018-03-16] MEDS ORDERED: XOPENEX IH SCH (01:45)
[2018-03-16] MEDS ORDERED: PROVENTIL IH SCH (02:00)
[2018-03-16] MEDS ORDERED: NON-FORMULARY (Cyclobenzaprine Hcl [Flexeril 5 Mg Tab] 5 MG) PO PRN (02:56)
[2018-03-16] MEDS ORDERED: SOLU-Medrol IV ONE (03:07)
[2018-03-16] MEDS ORDERED: LASIX IV ONE (03:07)
[2018-03-16] MEDS ORDERED: FLEXERIL PO PRN (03:15)
[2018-03-16] MEDS ORDERED: PROVENTIL IH PRN (03:18)
[2018-03-16] MEDS: CARDIZEM/D5W 100MG/100ML 100 MG/100 ML BAG IV SCH (03:19)
[2018-03-16] MEDS ORDERED: ARTIFICIAL TEARS OPHTH OINT OU PRN (04:41)
[2018-03-16] MEDS ORDERED: VASELINE LIP THERAPY TP PRN (04:41)
[2018-03-16] MEDS ORDERED: DIPRIVAN 10 MG/ML 1,000 MG/100 ML BOTTLE IV ONE (04:48)
[2018-03-16] MEDS ORDERED: NACL 0.9% 1000 ML 1,000 ML ONE (05:08)
--- NOTE | 2018-03-16 05:51 | XRay Report ---
FINAL REPORT PROCEDURE: XR ABDOMEN 1V AP TECHNIQUE: AP supine portable radiograph of the abdomen was obtained at 03/16/2018 04:45 (EST) . HISTORY: ng tube placement COMPARISON: No prior studies are available for comparison. FINDINGS: Bowel gas pattern: Nonobstructive. Masses or calcifications: None. Bony structures: Normal. Other: NG tube is in the stomach. IMPRESSION: The NG tube is in the stomach.
--- NOTE | 2018-03-16 05:53 | XRay Report ---
FINAL REPORT PROCEDURE: XR CHEST 1V AP TECHNIQUE: Chest radiograph anteroposterior view. CPT 76261 HISTORY: placement of OETT COMPARISON: No prior studies are available for comparison. FINDINGS: Heart: The heart is enlarged Mediastinum/Vessels: Normal. Lungs/Pleural space: There is mild pulmonary edema. There are no infiltrates, effusions or pneumothor aces. There is subcutaneous air in the neck. This was not present on the prior study. Injury not excl uded. Clinical correlation suggested.. Bony thorax: No acute osseous abnormality. Life support devices: Endotracheal tube is in the distal trachea approximately 18 millimeters above t he michelle. There is NG tube in the stomach.. IMPRESSION: Cardiomegaly. There is mild pulmonary edema. There are no infiltrates, effusions or pneumothoraces. There is subcutaneous air in the neck. This was not present on the prior study. Injury not excluded. Clinical correlation suggested.. Endotracheal tube is in the distal trachea approximately 18 millimeters above the michelle. There is NG tube in the stomach..
[2018-03-16] MEDS: NITRO-BID 2% TP SCH ×4 (06:26→18:46)
[2018-03-16] MEDS: TESSALON PERLES PO SCH ×3 (06:27→22:29)
[2018-03-16 06:35] LABS: Creatine Kinase MB 4.9 ng/mL (0.0-4.0)
[2018-03-16] MEDS: DIPRIVAN 10 MG/ML 1,000 MG/100 ML BOTTLE IV SCH ×2 (07:00→23:26)
--- NOTE | 2018-03-16 07:18 | Event Note ---
Date: 03/16/17 PATIENT NOTED TO BE IN RESPIRATORY DISTRESS DESPITE XOPENEX BREATHING TREATMENT, I.V LASIX. EXAMINATION REVEALED STATE OF CONFUSION WITH ABG SHOWING HYPOXIA . PATIENT SEDATED AND INTUBATED
[2018-03-16] MEDS ORDERED: BROVANA NEBU IH SCH (08:00)
[2018-03-16] MEDS: DUONEB *Not for PRN Use IH SCH ×3 (09:00→19:47)
--- NOTE | 2018-03-16 09:13 | History and Physical Report ---
CHIEF COMPLAINT: Shortness of breath. HISTORY OF PRESENT ILLNESS: The patient is a 57-year-old female, who started having shortness of breath, and that has been going on for about 1-2 weeks. The patient also reported chest pain that had also been intermittent, going on and off for 1 to 2 weeks. There is a history of associated palpitation, which the patient describes as anxiety attack. There is no history of nausea or vomiting. No history of fever. The patient also denied a history of dizziness and presented for evaluation. PAST MEDICAL HISTORY: Pertinent for gastroesophageal reflux disease. Also, the patient has past medical history of asthma; COPD, on home O2; and also the patient has a past medical history of mitral valve prolapse as well as fibroid and gallstone. PAST SURGICAL HISTORY: Pertinent for myomectomy. FAMILY HISTORY: Noncontributory. SOCIAL HISTORY: The patient smokes cigarettes, does not drink alcohol and does not use illicit drugs. MEDICATIONS: The patient's home medications include albuterol nebulizer 3 times daily. The patient is also on Brovana 15 mcg at 2 mL 1 puff inhalation, frequency unknown. The patient is also on aspirin 81 mg by mouth daily. The patient is on benzonatate 100 mg by mouth every 8 hours, and Flexeril 5 mg by mouth every 8 hours. The patient is also on dexamethasone 6 mg by mouth, which she had once and fluconazole that she had one time 150 mg. The patient is on Lasix 20 mg daily and Combivent inhaler q.i.d. The patient is on Levaquin 500 mg by mouth daily, and it is not clear whether the patient has completed that. The patient is on prednisone 20 mg daily and on tiotropium bromide/olodaterol hydrochloride 2 grams inhalation twice daily. ALLERGIES: THE PATIENT IS ALLERGIC TO MORPHINE. REVIEW OF SYSTEMS: CONSTITUTIONAL: There is no fever, no chills, no diaphoresis. HEENT: There is no headache or sore throat. CARDIOVASCULAR SYSTEM: Chest pain is present with no orthopnea. Palpitation is also present. RESPIRATORY SYSTEM: Shortness of breath is present and no cough. GASTROINTESTINAL SYSTEM: There is no nausea, no vomiting, no abdominal pain, diarrhea or constipation. NEUROLOGIC SYSTEM: There is no numbness, no dizziness, no altered mental status. MUSCULOSKELETAL SYSTEM: There is no joint pain or swelling. DERMATOLOGICAL SYSTEM: There is no skin rash or itching. GENITOURINARY SYSTEM: There is no dysuria, hematuria, or flank pain. Rest of system review is normal. PHYSICAL EXAMINATION: GENERAL: At the time of exam, the patient was found to be alert, oriented x3 and ____ not in acute distress. VITAL SIGNS: At the initial time of presentation show temperature of 98.2 degrees Fahrenheit, pulse of 108, respirations 24, blood pressure 93/58, and O2 sat of 98% on oxygen. HEENT: Exam showed pupils to be equal, round, and reactive to light and accommodating. Extraocular muscles are intact. NECK: Supple with no JVD or carotid bruit. CARDIOVASCULAR SYSTEM: Showed normal first and second heart sounds with no gallops or murmurs. RESPIRATORY SYSTEM: Showed good air entry on both sides of the lung with bilateral scattered crackles. GASTROINTESTINAL SYSTEM: Showed abdomen to be full, soft, nontender with no organomegaly or rigidity. NEUROLOGICAL SYSTEM: Showed no focal deficit. MUSCULOSKELETAL SYSTEM: Showed no joint swelling or tenderness. DERMATOLOGICAL SYSTEM: Showed no skin rash. GENITOURINARY SYSTEM: Showed no costovertebral angle tenderness. PERTINENT LABORATORY DATA AND IMAGING STUDIES: The patient had a chest x-ray done that shows interval increase in the size of bilateral pleural fluid collection, left greater than right with pulmonary consolidation in both lung bases and the radiologist said that the CT chest may be helpful for further evaluation. There is finding of enlarged cardiac silhouette, which has not significantly changed. There was an order for the patient to get a CT angiogram of the chest urgently in the Emergency Room, but the patient refused. Lab results: The patient had CBC done with normal white count, normal hemoglobin and normal hematocrit. CBC differential was unremarkable. Coagulation studies showed elevated D-dimer of 1826.9. The patient's chemistry showed normal sodium, potassium and chloride with elevated brain natriuretic peptide level of 2498. Troponin level came back normal. The patient's albumin level was low with a value of 3.7. The patient's ABG showed normal pH with low pCO2 of 30.6 and low pO2 of 52, and this was done on FiO2 of 36. The patient's EKG showed atrial fibrillation with rapid ventricular rate. DIAGNOSES: 1. Atrial fibrillation with rapid ventricular rate. 2. Congestive heart failure. PLAN OF ACTION: 1. The patient will be admitted to the Critical Care Unit. 2. The patient will continue IV Cardizem drip started in the Emergency Room and also IV heparin started in the Emergency Room. 3. The patient will have a 2D echo done this morning because of congestive heart failure. 4. The patient will have cardiac enzyme involving troponin, total CK, and CK-MB checked q.6 hours x2 levels. 5. The patient will continue Cardiology consult with Dr. Gerber requested by the Emergency Room physician. 6. The patient will have critical care consult with Dr. Lozada for ICU admission. 7. The patient will be on Lasix 40 mg IV daily. 8. The patient will be placed on home medications as shown in the medication reconciliation section. 9. The patient will be on IV Zofran 4 mg every 8 hours as needed for nausea and vomiting. 10. The patient will be on nitro paste half inch to anterior chest wall q.6 hours. 11. The patient will be on 2 gram sodium diet. JOB# [id number] OCN/NTS
--- NOTE | 2018-03-16 09:23 | Consultation ---
History of Present Illness Consult date: 03/16/18 Requesting physician: HAN GONZALEZ Consult reason: atrial fibrillation History of present illness: The patient is a 57 YO female with a past medical history of COPD requiring home O2 followed by Dr. Kirkpatrick, tobacco use, large pericardial effusion, normal coronary arteries, severe MR, PVCs, atrial ectopy. She is followed in our office by Dr. Gurrola. She is intubated and sedated with no family members present on evaluation and thus HPI obtained per the chart. She presented to the emergency department via EMS from home with complaint of shortness of breath has been going on for the past 1-2 days. She's been having some intermittent chest pain with this. She has a past medical history of asthma, COPD on 2 L oxygen via nasal cannula, GERD, gallstones, mitral valve prolapse. Following arrival, pt was noted in be in AFib with RVR and was initiated on cardizem gtt and heparin gtt. Echo done 10/2017 showed EF 50-55%, restrictive diastolic filling, LA severely dilated, severe MR, prolapse of anterior leaflet of mitral valve, mild TR, RVSP 41mmHg, large pericardial effusion, no evidence of tamponade. Limited echo done 01/06/2018 showed large posterior pericardial effusion, small to mod anterior pericardial effusion, no evidence of tamponade, quantity of pericardial fluid relatively less when compared to echo done 10/2017. LHC done 08/2016 showed normal coronaries, severe MR, dilated LV and markedly dilated LA, EF around 45-50%. Medications and Allergies Allergies Allergy/AdvReac Type Severity Reaction Status Date / Time morphine Allergy Rash Verified 02/27/18 12:48 Home Medications Medication Instructions Recorded Confirmed Last Taken Type Tiotropium Br/Olodaterol HCl 2 gm IH BID 10/29/14 03/15/18 03/14/18 History [Stiolto Respimat Inhal [place]] Arformoterol Tartrate(Nf) [Brovana 1 puff INHALATION DAILY 07/22/16 03/15/18 03/14/18 History (Nf)] Ipratropium/Albuterol Sulfate 3 ml INHALATION BID 09/04/16 03/15/18 03/14/18 History [Iprat-Albut 0.5-3(2.5) mg/3 ml] Dexamethasone 6 mg PO ONCE #3 tablet 12/22/16 03/15/18 03/14/18 Rx Ipratropium/Albuterol Sulfate 1 spray IH QID #1 mist.inhal 12/22/16 03/15/18 03/14/18 Rx [Combivent Respimat] Cyclobenzaprine HCl [Flexeril 5 MG 5 mg PO Q8HR PRN #20 tab 09/21/17 03/15/18 03/14/18 Rx TAB] ALBUTEROL NEB's [Proventil 0.083% 5 mg IH TID PRN #20 neb 02/27/18 03/15/18 03/14/18 Rx NEBS] Benzonatate [Tessalon Perles] 100 mg PO Q8HR #10 capsule 02/27/18 03/15/18 03/14/18 Rx Fluconazole [Diflucan TAB] 150 mg PO ONCE #2 tablet 02/27/18 03/15/18 03/14/18 Rx Furosemide [Lasix] 20 mg PO DAILY #7 tablet 02/27/18 03/15/18 03/15/18 Rx levoFLOXacin [Levaquin TAB] 500 mg PO QDAY #7 tablet 02/27/18 03/15/18 03/14/18 Rx predniSONE [Deltasone] 20 mg PO QDAY #5 tab 02/27/18 03/15/18 03/14/18 Rx Aspirin [Aspirin BABY CHEW TAB] 81 mg PO QDAY 03/15/18 03/15/18 03/15/18 History Active Meds: Active Medications Acetaminophen (Tylenol) 650 mg PO Q4H PRN PRN Reason: Headache Albuterol (Proventil) 2.5 mg IH Q3HRT PRN PRN Reason: Shortness Of Breath Albuterol/Ipratropium (Duoneb *Not For Prn Use*) 1 ampul IH Q6HRT ON LICENSE OF [facility] Last Admin: 03/16/18 09:00 Dose: 1 ampul Documented by: Arformoterol Tartrate (Brovana Nebu) 15 mcg IH Q12HRT ON LICENSE OF [facility] Last Admin: 03/16/18 09:00 Dose: 15 mcg Documented by: Aspirin (Baby Aspirin) 81 mg PO QDAY ON LICENSE OF [facility] Benzonatate (Tessalon Perles) 100 mg PO Q8HR ON LICENSE OF [facility] Last Admin: 03/16/18 06:27 Dose: Not Given Documented by: Cyclobenzaprine HCl (Flexeril) 5 mg PO Q8H PRN PRN Reason: Muscle Spasm Famotidine (Pepcid) 20 mg IV BID NEL Furosemide (Lasix) 40 mg IV QDAY NEL Hydrophilic Ointment (Vaseline Lip Therapy) 1 applic TP Q2HR PRN PRN Reason: Dry Lips Diltiazem HCl (Cardizem/D5w 100mg/100ml) 100 mg in 100 mls @ 5 mls/hr IV TITR NEL; Protocol Last Titration: 03/16/18 08:50 Dose: 10 mg/hr, 10 mls/hr Documented by: Heparin Sodium/Sodium Chloride (Heparin/ 0.45% Nacl-25,000 Unit/500 Ml) 25,000 unit in 500 mls @ 16 mls/hr IV TITR NEL; Protocol Last Admin: 03/15/18 23:05 Dose: 800 units/hr, 16 mls/hr Documented by: Propofol (Diprivan 10 Mg/Ml) 1,000 mg in 100 mls @ 1.797 mls/hr IV TITR NEL; Protocol Piperacillin Sod/Tazobactam Sod (Zosyn/Ns 3.375gm/50ml) 3.375 gm in 50 mls @ 100 mls/hr IV Q8HR NEL; Protocol Lorazepam (Ativan) 1 mg IV Q4H PRN PRN Reason: Anxiety Multi-Ingred Cream/Lotion/Oil/Oint (Artificial Tears Ophth Oint) 1 applic OU Q4HR PRN PRN Reason: Dry Eye(s) Nitroglycerin (Nitro-Bid 2%) 0.5 inch TP QIDNTG ON LICENSE OF [facility]; Protocol Last Admin: 03/16/18 06:26 Dose: 0.5 inch Documented by: Ondansetron HCl (Zofran) 4 mg IV Q8H PRN PRN Reason: Nausea And Vomiting Prednisone (Deltasone) 20 mg PO QDAY ON LICENSE OF [facility] Review of Systems ROS unobtainable: due to endotracheal tube, due to mental status Physical Examination Vital Signs Temp Pulse Resp BP Pulse Ox 98.6 F 118 H 24 93/58 98 03/15/18 18:58 03/15/18 18:58 03/15/18 18:58 03/15/18 18:58 03/15/18 18:58 General appearance: other (intubated, sedated) Cardiac: Positive: irregularly irregular, S1/S2, Tachycardia Lungs: Positive: Decreased Breath Sounds, Rhonchi, Ventilated Respirations Neuro: Positive: Other (intubated, sedated) Skin: Negative: Rash Musculoskeletal: No Pain Extremities: Absent: edema Results 03/15/18 19:47 03/15/18 19:47 Cardiac Enzymes 03/15/18 03/16/18 Range/Units 19:47 05:29 AST 31 (5-40) units/L CK-MB (CK-2) 4.9 H (0.0-4.0) ng/mL Coagulation 03/15/18 Range/Units 19:47 PT 15.2 H (12.2-14.9) Sec. INR 1.16 H (0.87-1.13) APTT 28.4 (24.2-36.6) Sec. CBC 03/15/18 Range/Units 19:47 WBC 8.0 (4.5-11.0) K/mm3 RBC 4.15 (3.65-5.03) M/mm3 Hgb 12.2 (10.1-14.3) gm/dl Hct 37.1 (30.3-42.9) % Plt Count 281 (140-440) K/mm3 Lymph # 2.6 (1.2-5.4) K/mm3 [place] # 0.7 (0.0-0.8) K/mm3 Eos # 0.1 (0.0-0.4) K/mm3 Baso # 0.1 (0.0-0.1) K/mm3 Comprehensive Metabolic Panel 03/15/18 Range/Units 19:47 Sodium 137 (137-145) mmol/L Potassium 4.0 (3.6-5.0) mmol/L Chloride 100.9 (98-107) mmol/L Carbon Dioxide 21 L (22-30) mmol/L BUN 10 (7-17) mg/dL Creatinine 0.9 (0.7-1.2) mg/dL Glucose 124 H (65-100) mg/dL Calcium 8.6 (8.4-10.2) mg/dL AST 31 (5-40) units/L ALT 51 (7-56) units/L Alkaline Phosphatase 80 (35-129) units/L Total Protein 6.2 L (6.3-8.2) g/dL Albumin 3.7 L (3.9-5) g/dL - Imaging and Cardiology Echo: report reviewed (10/2017 showed EF 50-55%, restrictive diastolic filling, LA severely dilated, severe MR, prolapse of anterior leaflet of mitral valve, mild TR, RVSP 41mmHg, large pericardial effusion, no evidence of tamponade. ) Cardiac cath: report reviewed ( 08/2016 showed normal coronaries, severe MR, dilated LV and markedly dilated LA, EF around 45-50%. ) EKG: report reviewed, image reviewed EKG interpretations - Telemetry EKG Rhythm: Atrial Fibrillation - EKG Supraventricular dysrhythmia: atrial fibrillation Assessment and Plan Assessment: Acute on chronic respiratory failure - intubated Atrial fibrillation with RVR - apparently new diagnosis Acute HFpEF - CXR with mild pulmonary edema; pro-BNP 2498 ? PNA COPD H/o tobacco use H/o large pericardial effusion Normal coronary arteries Severe MR H/o prolapse of anterior leaflet of mitral valve Plan: F/u echo. Check thyroid profile and serum Mg. Optimize HR - d/c cardizem gtt as pt is currently hypotensive following intubation requiring sedation and initiate amio gtt. Agree with heparin gtt. Consider conversion to OAC prior to hospital discharge. IV diuretics as tolerated. Vent weaning per pulmonary. The patient has been seen in conjunction with Dr. Coe who agrees with the assessment and plan of care.
[2018-03-16] MEDS ORDERED: OLODATEROL IH SCH (10:00)
[2018-03-16] MEDS ORDERED: NON-FORMULARY (Ipratropium/Albuterol Sulfate [Combivent Respimat] 1 SPRAY) IH SCH (10:00)
[2018-03-16] MEDS ORDERED: TIOTROPIUM IH SCH (10:00)
[2018-03-16] MEDS ORDERED: ARFORMOTEROL TARTRATE INHALATION SCH (10:00)
[2018-03-16] MEDS ORDERED: NACL 0.9% 250ML 250 ML IV SCH ×2 (11:15→11:45)
--- NOTE | 2018-03-16 11:26 | Consultation ---
History of Present Illness Consult date: 03/16/18 Reason for consult: dyspnea, abnormal CXR/CT, other (CHF) History of present illness: 57 YO female with a past medical history of COPD followed by Dr. Kirkpatrikc, tobacco use, large pericardial effusion, normal coronary arteries, severe MR, PVCs, a trial ectopy. Admitted with history of progressive shortness of breath on the simple exertion for 2 days before admission. She was admitted with radiographic signs of chest congestion, congestive heart failure and huge cardiomegaly. Reportedly, the patient become progressively more distressed and had to be intubated,then transferred to the ICU. Jacob to evaluate and assist. No additional information available, history obtained from chart review. No family at the bedside. She is currently on fentanyl drip plus Cardizem drip for sedation and A. fib respectively. Review of cardiology's note shows: Echo done 10/2017 showed EF 50-55%, restrictive diastolic filling, LA severely dilated, severe MR, prolapse of anterior leaflet of mitral valve, mild TR, RVSP 41mmHg, large pericardial effusion, no evidence of tamponade. Limited echo done 01/06/2018 showed large posterior pericardial effusion, small to mod anterior pericardial effusion, no evidence of tamponade, quantity of pericardial fluid relatively less when compared to echo done 10/2017. LHC done 08/2016 showed normal coronaries, severe MR, dilated LV and markedly dilated LA, EF around 45-50%. Past History Past Medical History: CAD, COPD, other (CHF, pericardial effusion) Medications and Allergies Allergies Allergy/AdvReac Type Severity Reaction Status Date / Time morphine Allergy Rash Verified 02/27/18 12:48 Home Medications Medication Instructions Recorded Confirmed Last Taken Type Tiotropium Br/Olodaterol HCl 2 gm IH BID 10/29/14 03/15/18 03/14/18 History [Stiolto Respimat Inhal [place]] Arformoterol Tartrate(Nf) [Brovana 1 puff INHALATION DAILY 07/22/16 03/15/18 03/14/18 History (Nf)] Ipratropium/Albuterol Sulfate 3 ml INHALATION BID 09/04/16 03/15/18 03/14/18 History [Iprat-Albut 0.5-3(2.5) mg/3 ml] Dexamethasone 6 mg PO ONCE #3 tablet 10/03/15/18 03/14/18 Rx Ipratropium/Albuterol Sulfate 1 spray IH QID #1 mist.inhal 12/22/16 03/15/18 03/14/18 Rx [Combivent Respimat] Cyclobenzaprine HCl [Flexeril 5 MG 5 mg PO Q8HR PRN #20 tab 09/21/17 03/15/18 03/14/18 Rx TAB] ALBUTEROL NEB's [Proventil 0.083% 5 mg IH TID PRN #20 neb 02/27/18 03/15/18 03/14/18 Rx NEBS] Benzonatate [Tessalon Perles] 100 mg PO Q8HR #10 capsule 02/27/18 03/15/18 03/14/18 Rx Fluconazole [Diflucan TAB] 150 mg PO ONCE #2 tablet 02/27/18 03/15/18 03/14/18 Rx Furosemide [Lasix] 20 mg PO DAILY #7 tablet 02/27/18 03/15/18 03/15/18 Rx levoFLOXacin [Levaquin TAB] 500 mg PO QDAY #7 tablet 02/27/18 03/15/18 03/14/18 Rx predniSONE [Deltasone] 20 mg PO QDAY #5 tab 02/27/18 03/15/18 03/14/18 Rx Aspirin [Aspirin BABY CHEW TAB] 81 mg PO QDAY 03/15/18 03/15/18 03/15/18 History Active Meds: Active Medications Acetaminophen (Tylenol) 650 mg PO Q4H PRN PRN Reason: Headache Albuterol (Proventil) 2.5 mg IH Q3HRT PRN PRN Reason: Shortness Of Breath Albuterol/Ipratropium (Duoneb *Not For Prn Use*) 1 ampul IH Q6HRT [facility] Last Admin: 03/16/18 09:00 Dose: 1 ampul Documented by: Arformoterol Tartrate (Brovana Nebu) 15 mcg IH Q12HRT [facility] Last Admin: 03/16/18 09:00 Dose: 15 mcg Documented by: Aspirin (Baby Aspirin) 81 mg PO QDAY [facility] Benzonatate (Tessalon Perles) 100 mg PO Q8HR [facility] Last Admin: 03/16/18 06:27 Dose: Not Given Documented by: Cyclobenzaprine HCl (Flexeril) 5 mg PO Q8H PRN PRN Reason: Muscle Spasm Famotidine (Pepcid) 20 mg IV BID NEL Furosemide (Lasix) 40 mg IV QDAY NEL Hydrophilic Ointment (Vaseline Lip Therapy) 1 applic TP Q2HR PRN PRN Reason: Dry Lips Diltiazem HCl (Cardizem/D5w 100mg/100ml) 100 mg in 100 mls @ 5 mls/hr IV TITR NEL; Protocol Last Titration: 03/16/18 08:50 Dose: 10 mg/hr, 10 mls/hr Documented by: Heparin Sodium/Sodium Chloride (Heparin/ 0.45% Nacl-25,000 Unit/500 Ml) 25,000 unit in 500 mls @ 16 mls/hr IV TITR NEL; Protocol Last Admin: 03/15/18 23:05 Dose: 800 units/hr, 16 mls/hr Documented by: Propofol (Diprivan 10 Mg/Ml) 1,000 mg in 100 mls @ 1.797 mls/hr IV TITR NEL; Protocol Sodium Chloride (Nacl 0.9% 250ml) 250 mls @ 999 mls/hr IV DIRECT NEL Stop: 03/16/18 11:31 Lorazepam (Ativan) 1 mg IV Q4H PRN PRN Reason: Anxiety Multi-Ingred Cream/Lotion/Oil/Oint (Artificial Tears Ophth Oint) 1 applic OU Q4HR PRN PRN Reason: Dry Eye(s) Nitroglycerin (Nitro-Bid 2%) 0.5 inch TP QIDNTG NEL; Protocol Last Admin: 03/16/18 06:26 Dose: 0.5 inch Documented by: Ondansetron HCl (Zofran) 4 mg IV Q8H PRN PRN Reason: Nausea And Vomiting Prednisone (Deltasone) 20 mg PO QDAY [facility] Review of Systems ROS unobtainable: due to endotracheal tube, due to mental status Physical Examination Vital signs: Vital Signs Temp Pulse Resp BP Pulse Ox 98.6 F 118 H 24 93/58 98 03/15/18 18:58 03/15/18 18:58 03/15/18 18:58 03/15/18 18:58 03/15/18 18:58 General appearance: no acute distress, other (sedated and intubated) Eyes: non-icteric ENT: oropharynx moist, other (ETT in position 22) Neck: supple, JVD Ascultation: Bilateral: rales (mild), rhonchi (mild) Cardiovascular: regular rate and rhythm (tachycardic, systolic murmur noted) Gastrointestinal: normoactive bowel sounds, non-distended Integumentary: normal Extremities: no cyanosis Musculoskeletal: no deformities unable to assess (RASS score -1) Results - Laboratory Findings CBC and BMP: 03/15/18 19:47 03/15/18 19:47 ABG POC ABG pH 7.232 (7.35-7.45) L 03/16/18 05:57 POC ABG pCO2 45.1 (35-45) H 03/16/18 05:57 POC ABG pO2 102 (80-105) 03/16/18 05:57 POC ABG HCO3 19.0 03/16/18 05:57 POC ABG Total CO2 20 03/16/18 05:57 POC ABG O2 Sat 97 03/16/18 05:57 PT/INR, D-dimer PT 15.2 Sec. (12.2-14.9) H 03/15/18 19:47 INR 1.16 (0.87-1.13) H 03/15/18 19:47 D-Dimer 1826.96 ng/mlDDU (0-234) H 03/15/18 19:47 Abnormal lab findings: Abnormal Labs 03/15/18 03/15/18 03/15/18 19:47 19:47 19:47 RDW 15.6 H [place] % (Auto) 8.2 H PT 15.2 H INR 1.16 H D-Dimer 1826.96 H POC ABG pH POC ABG pCO2 POC ABG pO2 Carbon Dioxide 21 L Glucose 124 H Total Creatine Kinase CK-MB (CK-2) NT-Pro-B Natriuret Pep Total Protein 6.2 L Albumin 3.7 L 03/15/18 03/16/18 03/16/18 19:47 02:17 05:29 RDW [place] % (Auto) PT INR D-Dimer POC ABG pH POC ABG pCO2 30.6 L POC ABG pO2 52 L Carbon Dioxide Glucose Total Creatine Kinase 232 H CK-MB (CK-2) 4.9 H NT-Pro-B Natriuret Pep 2498 H Total Protein Albumin 03/16/18 05:57 RDW [place] % (Auto) PT INR D-Dimer POC ABG pH 7.232 L POC ABG pCO2 45.1 H POC ABG pO2 Carbon Dioxide Glucose Total Creatine Kinase CK-MB (CK-2) NT-Pro-B Natriuret Pep Total Protein Albumin - Diagnostic Findings Chest x-ray: report reviewed, image reviewed Additional studies: 03/15/18 03/16/18 19:47 05:57 POC ABG pH 7.232 L POC ABG pCO2 45.1 H POC ABG pO2 102 POC ABG HCO3 19.0 POC ABG Total CO2 20 FiO2 100 NT-Pro-B Natriuret Pep 2498 H Assessment and Plan Acute hypercapnia respiratory failure. Most likely secondary to CHF exacerbation in the context of COPD. CHF exacerbation A. fib with fast ventricular response. On Cardizem drip Large pericardial pleural effusion. Being followed by cardiology, see cardiology note COPD Recommendations f/u hospital ventilator bundle, Mechanical ventilation support, adjust FiO2 with goal of maintaining oximetry at or above 92% Will hold aformoterol to assist with rate control. Clinically patient is no wheezing Titrate PEEP up to maintain oximetry of the above oximetry level Set tidal Volume set initially at 6-8 cm PBW for ANKITA protection Keep PIP < 30 Sedation as needed for patient comfort, adjust to RASS -1 to - 3 Maintain extubation precautions Daily morning sedation vacation and initiate SBT if deemed appropriate DVT prophylaxis PPI prophylaxis Albuterol 2.5 milligram nebulizations every 4-6 hours with or without ipratropium Solu-Medrol 40-60 mg IV every 6-8 hours if wheezing Oxygen support via nasal cannula or mask to maintain oximetry over 92% Follow-up with cardiology regarding pleural effusion status. Hemodynamically stable at this point. Gentle diureses, avoid hypotension and hypovolemia No family available for case discussion.
[2018-03-16] MEDS ORDERED: CORDARONE 150 MG in D5W 97 ML IV ONE (11:45)
[2018-03-16] MEDS: LASIX IV SCH (11:53)
[2018-03-16] MEDS: BABY ASPIRIN PO SCH (11:54)
[2018-03-16] MEDS: PEPCID IV SCH ×2 (11:54→22:28)
[2018-03-16] MEDS: DELTASONE PO SCH (11:54)
[2018-03-16] MEDS: CORDARONE 900 MG in D5W 482 ML IV SCH (12:23)
[2018-03-16] MEDS ORDERED: SODIUM BICARBONATE FEEDTUBE PRN (12:24)
[2018-03-16] MEDS ORDERED: SIMPLE SYRUP FEEDTUBE PRN ×2 (12:24)
[2018-03-16] MEDS ORDERED: PANCREAZE DR 10,500 UNIT FEEDTUBE PRN (12:24)
--- NOTE | 2018-03-16 13:56 | Progress Note ---
Assessment and Plan Assessment and plan: Acute on chronic hypoxemic respiratory failure. Continue mechanical ventilation per pulmonary. Patient currently sedated with Diprivan. Atrial fibrillation with RVR. New diagnosis. Echo done 10/2017 showed EF 50- 55%, restrictive diastolic filling, LA severely dilated, severe MR, prolapse of anterior leaflet of mitral valve, mild TR, RVSP 41mmHg, large pericardial effusion, no evidence of tamponade. Limited echo done 01/06/2018 showed large posterior pericardial effusion, small to mod anterior pericardial effusion, no evidence of tamponade, quantity of pericardial fluid relatively less when compared to echo done 10/2017. LHC done 08/2016 showed normal coronaries, severe MR, dilated LV and markedly dilated LA, EF around 45-50%. Await repeat echocardiogram. Continue Cardizem drip. Acute HFpEF. On admission, CXR with mild pulmonary edema; pro-BNP 2498 Pericardial effusion. Per cardiology. COPD. continue breathing treatments. IV steroids for pulmonary. Subcutaneous air in the neck. Etiology likely secondary to intubation. Consult surgery if worsens. H/o tobacco use H/o large pericardial effusion Normal coronary arteries Severe MR H/o prolapse of anterior leaflet of mitral valve History Interval history: The patient is a 57 YO female with a past medical history of COPD requiring home O2 followed by Dr. Kirkpatrick, tobacco use, large pericardial effusion, normal coronary arteries, severe MR, PVCs, atrial ectopy. She is in the ICU intubated and sedated on Diprivan with no family members at the bedside. She presented to the emergency department via EMS from home with complaint of shortness of breath has been going on for the past 1-2 days prior to admission. She's been having some intermittent chest pain with this dyspnea. She has a past medical history of asthma, COPD on 2 L oxygen via nasal cannula, GERD, gallstones, mitral valve prolapse. Following arrival, pt was noted in be in AFib with RVR and was initiated on cardizem gtt and heparin gtt. Cardiology and pulmonary following. No new issues overnight. Hospitalist Physical - Constitutional Vitals: Temp Pulse Resp BP Pulse Ox 98.6 F 94 H 24 110/79 97 03/15/18 18:58 03/16/18 13:30 03/16/18 13:30 03/16/18 13:30 03/16/18 13:30 General appearance: Present: other (intubated, sedated) - EENT Eyes: Present: PERRL, EOM intact ENT: hearing intact, clear oral mucosa, dentition normal - Neck Neck: Present: supple, normal ROM - Respiratory Respiratory effort: normal Respiratory: bilateral: diminished - Cardiovascular Rhythm: regular Heart Sounds: Present: S1 & S2. Absent: gallop, rub - Extremities Extremities: no ischemia, No edema, Full ROM - Abdominal General gastrointestinal: soft, non-tender, non-distended, normal bowel sounds - Integumentary Integumentary: Present: clear, warm, dry - Neurologic Neurologic: CNII-XII intact, moves all extremities Results - Labs CBC & Chem 7: 03/15/18 19:47 03/15/18 19:47 Labs: Laboratory Last Values WBC 8.0 K/mm3 (4.5-11.0) 03/15/18 19:47 RBC 4.15 M/mm3 (3.65-5.03) 03/15/18 19:47 Hgb 12.2 gm/dl (10.1-14.3) 03/15/18 19:47 Hct 37.1 % (30.3-42.9) 03/15/18 19:47 MCV 89 fl (79-97) 03/15/18 19:47 MCH 29 pg (28-32) 03/15/18 19:47 MCHC 33 % (30-34) 03/15/18 19:47 RDW 15.6 % (13.2-15.2) H 03/15/18 19:47 Plt Count 281 K/mm3 (140-440) 03/15/18 19:47 Lymph % (Auto) 32.4 % (13.4-35.0) 03/15/18 19:47 [place] % (Auto) 8.2 % (0.0-7.3) H 03/15/18 19:47 Eos % (Auto) 0.8 % (0.0-4.3) 03/15/18 19:47 Baso % (Auto) 0.9 % (0.0-1.8) 03/15/18 19:47 Lymph # 2.6 K/mm3 (1.2-5.4) 03/15/18 19:47 [place] # 0.7 K/mm3 (0.0-0.8) 03/15/18 19:47 Eos # 0.1 K/mm3 (0.0-0.4) 03/15/18 19:47 Baso # 0.1 K/mm3 (0.0-0.1) 03/15/18 19:47 Seg Neutrophils % 57.7 % (40.0-70.0) 03/15/18 19:47 Seg Neutrophils # 4.6 K/mm3 (1.8-7.7) 03/15/18 19:47 PT 15.2 Sec. (12.2-14.9) H 03/15/18 19:47 INR 1.16 (0.87-1.13) H 03/15/18 19:47 APTT 28.4 Sec. (24.2-36.6) 03/15/18 19:47 D-Dimer 1826.96 ng/mlDDU (0-234) H 03/15/18 19:47 Heparin Anti-Xa Level 0.60 U.I./ml (0.3-0.7) 03/16/18 11:52 POC ABG pH 7.232 (7.35-7.45) L 03/16/18 05:57 POC ABG pCO2 45.1 (35-45) H 03/16/18 05:57 POC ABG pO2 102 (80-105) 03/16/18 05:57 POC ABG HCO3 19.0 03/16/18 05:57 POC ABG Total CO2 20 03/16/18 05:57 POC ABG O2 Sat 97 03/16/18 05:57 POC ABG Base Excess -9 03/16/18 05:57 FiO2 100 % 03/16/18 05:57 Sodium 137 mmol/L (137-145) 03/15/18 19:47 Potassium 4.0 mmol/L (3.6-5.0) 03/15/18 19:47 Chloride 100.9 mmol/L (98-107) 03/15/18 19:47 Carbon Dioxide 21 mmol/L (22-30) L 03/15/18 19:47 Anion Gap 19 mmol/L 03/15/18 19:47 BUN 10 mg/dL (7-17) 03/15/18 19:47 Creatinine 0.9 mg/dL (0.7-1.2) 03/15/18 19:47 Estimated GFR > 60 ml/min 03/15/18 19:47 BUN/Creatinine Ratio 11 % 03/15/18 19:47 Glucose 124 mg/dL (65-100) H 03/15/18 19:47 Calcium 8.6 mg/dL (8.4-10.2) 03/15/18 19:47 Total Bilirubin 1.20 mg/dL (0.1-1.2) 03/15/18 19:47 AST 31 units/L (5-40) 03/15/18 19:47 ALT 51 units/L (7-56) 03/15/18 19:47 Alkaline Phosphatase 80 units/L (35-129) 03/15/18 19:47 Total Creatine Kinase 232 units/L (30-135) H 03/16/18 05:29 CK-MB (CK-2) 4.9 ng/mL (0.0-4.0) H 03/16/18 05:29 CK-MB (CK-2) Rel Index 2.1 (0-4) 03/16/18 05:29 Troponin T < 0.010 ng/mL (0.00-0.029) 03/16/18 05:29 NT-Pro-B Natriuret Pep 2498 pg/mL (0-900) H 03/15/18 19:47 Total Protein 6.2 g/dL (6.3-8.2) L 03/15/18 19:47 Albumin 3.7 g/dL (3.9-5) L 03/15/18 19:47 Albumin/Globulin Ratio 1.5 % 03/15/18 19:47 Nutrition/Malnutrition Assess - Dietary Evaluation Nutrition/Malnutrition Findings: Nutrition Notes Start: 03/16/18 11:39 Freq: Status: Active Protocol: Document 03/16/18 11:39 KH (Rec: 03/16/18 12:23 CAMPOS [email or web address]) Co-Sign 03/16/18 11:39 LP Nutrition Notes Need for Assessment generated from: MD Order Initial or Follow up Assessment Current Diagnoses COPD Heart Failure Current Diet 2g Na Diet Labs/Tests Albumin: 3.7 Medications Propofol (47 Kcal), Solu- medrol, Lasix, Heparin Height 5 ft 3 in Weight 59.9 kg [place] Body Weight (lbs) 115.0 BMI 23.3 Weight Status Appropriate Subjective/Other Information RN screen for evaluation of nutritional intake. NGT placed for suction. Pt refused CT scan. Pt is on mechanical ventilation, so unable to answer questions. Percent of energy/protein needs met: 0%/0% Burn Absent Trauma Absent Current % PO NEGLIGIBLE #1 Nutrition Diagnoses Predicted suboptimal energy intake Etiology vent/COPD As Evidenced by Signs and Symptoms NPO Diagnosis Progress(for reassessment Continues documentation) Is patient on ventilator? Yes Is Patient Ambulatory and/or Out of Bed No REE-([place]-St. Jeor-confined to bed) 1400.316 Calculation Used for Recommendations [place] Jeor Additional Notes Pro: 1.2-2 g/Kg BW (72g-120g/ day) Fluid: 1ml/kcal or per MD Nutrition Intervention Change Diet Order: Recommend NPO Nutrition Support: Vital AF 1.2 to start at 10ml/ hr and increase by 10ml q8h until goal rate of 50ml/hr achieved. Water flush of 80ml q4h. Kcal 1,487 Protein (gm) 90 Fluid (mL) 1,453 Goal #1 TF initiation up to goal rate of 50ml/hr Goal #2 TF tolerance Anticipated Discharge Needs: Unknown at this time Follow-Up By: 03/18/18 Additional Comments F/U: initiation of TF
[2018-03-16] MEDS ORDERED: ZOSYN/NS 3.375GM/50ML 3.375 GM/50 ML BAG IV SCH (14:00)
[2018-03-16 15:41] LABS: Creatine Kinase MB 6.4 ng/mL (0.0-4.0)
--- NOTE | 2018-03-16 17:57 | Cat Scan Report ---
FINAL REPORT EXAM: CT ANGIO CHEST HISTORY: SOB, elevated dimer TECHNIQUE: CT chest CT angiogram PRIORS: None. FINDINGS: Demonstrated is is a persistent left-sided superior vena cava terminating in the inferior right atriu m at the IVC atrial junction with reflux of contrast into the hepatic veins. There is a large pericar dial effusion measuring in the 2.1 centimeter range transverse diameter. The heart is enlarged. There is a moderate right pleural effusion there is adjacent compressive atelectasis. There is a mini mal left pleural effusion. Ground-glass opacity in the lungs likely reflects underlying CHF. The ET and NG tubes appear in satisfactory position ET tube line just above the level of the michelle. IMPRESSION: Congenital persistent left superior vena cava Large pericardial effusion. ET and NG tubes as noted Cardiomegaly Moderate to large right pleural effusion with minimal left effusion Atelectasis at the lung bases Likely reflecting CHF
[2018-03-17] MEDS: DUONEB *Not for PRN Use IH SCH ×4 (03:09→19:20)
[2018-03-17] MEDS: CORDARONE 900 MG in D5W 482 ML IV SCH (04:10)
[2018-03-17 05:08] LABS: Hematocrit 32.6 % (30.3-42.9); Hemoglobin 10.8 gm/dl (10.1-14.3)
[2018-03-17] MEDS: NITRO-BID 2% TP SCH ×4 (05:45→17:42)
[2018-03-17] MEDS: TESSALON PERLES PO SCH ×2 (05:48→14:31)
--- NOTE | 2018-03-17 06:04 | XRay Report ---
FINAL REPORT PROCEDURE: XR CHEST 1V AP TECHNIQUE: Chest radiograph anteroposterior view. CPT 91014 HISTORY: follow up respiratory failure COMPARISON: 03/16/2018 FINDINGS: Heart: The heart is borderline enlarged. Mediastinum/Vessels: Normal. Lungs/Pleural space: There are infiltrates at the right lung base. The lungs are well-expanded. There are no effusions or pneumothoraces.. Bony thorax: No acute osseous abnormality. Life support devices: Endotracheal tube is in the distal trachea. NG tube is in the stomach.. IMPRESSION: The heart is borderline enlarged. There are infiltrates at the right lung base. The lungs are well-expanded. There are no effusions or pneumothoraces.. Endotracheal tube is in the distal trachea. NG tube is in the stomach.. .
[2018-03-17] MEDS: ATIVAN IV PRN ×2 (07:30→22:01)
--- NOTE | 2018-03-17 08:45 | Progress Note ---
Assessment and Plan Acute hypercapnia respiratory failure. Most likely secondary to CHF exacerbation in the context of COPD. CHF exacerbation A. fib with fast ventricular response. On amiodarone drip, still elevated. No fever or hypoxia present. Chest x-ray with cardiomegaly but otherwise no significant vascular congestion However,told by Cards that vegetation may be present on echo, they have concern for BE Large pericardial pleural effusion. Being followed by cardiology, see cardiology note COPD Recommendations Continue drips for rate control ESR,ID evaluation. BC done already. Rocefin +/- Vanco, depending on ID recommendations Once A. fib is controlled, initially sedation vacation and consider SBT Follow-up cards CHF recommendations DVT prophylaxis Discussed with family in detail. All questions answered. Critical care time was 31 minutes of [id number] evaluation and coordination of care Subjective Date of service: 03/17/18 Interval history: Intubated Objective Vital Signs - 12hr 03/16/18 03/16/18 03/16/18 20:51 21:00 21:11 Temperature Pulse Rate 115 H 116 H 120 H Pulse Rate [ Bilateral Throughout] Pulse Rate [ Right Radial] Respiratory 24 24 24 Rate Respiratory Rate [Bilateral Throughout] Blood Pressure 97/70 95/72 97/70 O2 Sat by Pulse 98 98 99 Oximetry 03/16/18 03/16/18 03/16/18 21:21 21:25 21:30 Temperature Pulse Rate 109 H 103 H 116 H Pulse Rate [ Bilateral Throughout] Pulse Rate [ Right Radial] Respiratory 24 24 24 Rate Respiratory Rate [Bilateral Throughout] Blood Pressure 93/70 93/70 101/72 O2 Sat by Pulse 98 98 98 Oximetry 03/16/18 03/16/18 03/16/18 21:41 21:51 22:00 Temperature Pulse Rate 84 106 H 113 H Pulse Rate [ Bilateral Throughout] Pulse Rate [ Right Radial] Respiratory 24 24 24 Rate Respiratory Rate [Bilateral Throughout] Blood Pressure 101/72 95/73 102/71 O2 Sat by Pulse 98 98 99 Oximetry 03/16/18 03/16/18 03/16/18 22:11 22:21 22:30 Temperature Pulse Rate 113 H 107 H 119 H Pulse Rate [ Bilateral Throughout] Pulse Rate [ Right Radial] Respiratory 24 24 25 H Rate Respiratory Rate [Bilateral Throughout] Blood Pressure 102/71 109/78 102/69 O2 Sat by Pulse 98 99 99 Oximetry 03/16/18 03/16/18 03/16/18 22:41 22:51 23:00 Temperature Pulse Rate 103 H 106 H 104 H Pulse Rate [ Bilateral Throughout] Pulse Rate [ Right Radial] Respiratory 24 24 24 Rate Respiratory Rate [Bilateral Throughout] Blood Pressure 102/69 103/77 101/73 O2 Sat by Pulse 99 98 100 Oximetry 03/16/18 03/16/18 03/16/18 23:11 23:21 23:30 Temperature Pulse Rate 115 H 116 H 108 H Pulse Rate [ Bilateral Throughout] Pulse Rate [ Right Radial] Respiratory 24 24 24 Rate Respiratory Rate [Bilateral Throughout] Blood Pressure 101/73 101/67 102/72 O2 Sat by Pulse 98 99 98 Oximetry 03/16/18 03/16/18 03/17/18 23:41 23:51 00:00 Temperature 98.9 F Pulse Rate 117 H 123 H 108 H Pulse Rate [ Bilateral Throughout] Pulse Rate [ 123 H Right Radial] Respiratory 27 H 28 H 24 Rate Respiratory Rate [Bilateral Throughout] Blood Pressure 102/72 103/69 93/70 O2 Sat by Pulse 98 99 98 Oximetry 03/17/18 03/17/18 03/17/18 00:11 00:21 00:30 Temperature Pulse Rate 113 H 117 H 127 H Pulse Rate [ Bilateral Throughout] Pulse Rate [ Right Radial] Respiratory 24 24 24 Rate Respiratory Rate [Bilateral Throughout] Blood Pressure 102/72 95/66 95/69 O2 Sat by Pulse 98 99 99 Oximetry 03/17/18 03/17/18 03/17/18 00:40 00:50 01:00 Temperature Pulse Rate 134 H 113 H 123 H Pulse Rate [ Bilateral Throughout] Pulse Rate [ Right Radial] Respiratory 36 H 24 24 Rate Respiratory Rate [Bilateral Throughout] Blood Pressure 95/69 95/69 106/79 O2 Sat by Pulse 100 99 99 Oximetry 03/17/18 03/17/18 03/17/18 01:11 01:21 01:30 Temperature Pulse Rate 120 H 110 H 108 H Pulse Rate [ Bilateral Throughout] Pulse Rate [ Right Radial] Respiratory 24 24 24 Rate Respiratory Rate [Bilateral Throughout] Blood Pressure 103/70 104/73 101/71 O2 Sat by Pulse 99 99 99 Oximetry 03/17/18 03/17/18 03/17/18 01:41 01:51 02:00 Temperature Pulse Rate 116 H 117 H 124 H Pulse Rate [ Bilateral Throughout] Pulse Rate [ Right Radial] Respiratory 24 24 24 Rate Respiratory Rate [Bilateral Throughout] Blood Pressure 101/71 109/68 96/74 O2 Sat by Pulse 99 99 99 Oximetry 03/17/18 03/17/18 03/17/18 02:11 02:21 02:31 Temperature Pulse Rate 116 H 140 H Pulse Rate [ Bilateral Throughout] Pulse Rate [ Right Radial] Respiratory 25 H 29 H Rate Respiratory Rate [Bilateral Throughout] Blood Pressure 101/71 95/66 95/66 O2 Sat by Pulse 99 98 100 Oximetry 03/17/18 03/17/18 03/17/18 02:41 02:51 03:00 Temperature Pulse Rate 125 H 115 H 127 H Pulse Rate [ Bilateral Throughout] Pulse Rate [ Right Radial] Respiratory 24 24 24 Rate Respiratory Rate [Bilateral Throughout] Blood Pressure 96/74 100/73 98/73 O2 Sat by Pulse 98 98 99 Oximetry 03/17/18 03/17/18 03/17/18 03:09 03:11 03:17 Temperature Pulse Rate 124 H Pulse Rate [ 124 H 123 H Bilateral Throughout] Pulse Rate [ Right Radial] Respiratory 24 Rate Respiratory 24 24 Rate [Bilateral Throughout] Blood Pressure 100/73 O2 Sat by Pulse 99 Oximetry 03/17/18 03/17/18 03/17/18 03:18 03:21 03:30 Temperature Pulse Rate 119 H 124 H 127 H Pulse Rate [ Bilateral Throughout] Pulse Rate [ Right Radial] Respiratory 24 24 Rate Respiratory Rate [Bilateral Throughout] Blood Pressure 98/68 98/68 102/74 O2 Sat by Pulse 99 99 99 Oximetry 03/17/18 03/17/18 03/17/18 03:41 03:48 03:51 Temperature 98.8 F Pulse Rate 123 H 122 H Pulse Rate [ Bilateral Throughout] Pulse Rate [ Right Radial] Respiratory 24 24 Rate Respiratory Rate [Bilateral Throughout] Blood Pressure 102/74 103/77 O2 Sat by Pulse 100 100 Oximetry 03/17/18 03/17/18 03/17/18 04:00 04:11 04:21 Temperature Pulse Rate 118 H 114 H 124 H Pulse Rate [ Bilateral Throughout] Pulse Rate [ 111 H Right Radial] Respiratory 24 24 24 Rate Respiratory Rate [Bilateral Throughout] Blood Pressure 101/73 101/73 102/74 O2 Sat by Pulse 100 100 100 Oximetry 01/09/19 01/09/19 01/09/19 04:30 04:41 04:51 Temperature Pulse Rate 114 H 118 H 129 H Pulse Rate [ Bilateral Throughout] Pulse Rate [ Right Radial] Respiratory 24 24 24 Rate Respiratory Rate [Bilateral Throughout] Blood Pressure 98/71 98/71 104/75 O2 Sat by Pulse 100 100 100 Oximetry 03/17/18 03/17/18 03/17/18 05:00 05:11 05:21 Temperature Pulse Rate 124 H 128 H 117 H Pulse Rate [ Bilateral Throughout] Pulse Rate [ Right Radial] Respiratory 24 24 26 H Rate Respiratory Rate [Bilateral Throughout] Blood Pressure 112/70 112/70 94/69 O2 Sat by Pulse 100 100 100 Oximetry 03/17/18 03/17/18 03/17/18 05:30 05:41 05:45 Temperature Pulse Rate 129 H 134 H 119 H Pulse Rate [ Bilateral Throughout] Pulse Rate [ Right Radial] Respiratory 24 25 H Rate Respiratory Rate [Bilateral Throughout] Blood Pressure 102/69 102/69 102/69 O2 Sat by Pulse 100 100 Oximetry 03/17/18 03/17/18 03/17/18 05:51 06:00 06:11 Temperature Pulse Rate 129 H 122 H 120 H Pulse Rate [ Bilateral Throughout] Pulse Rate [ Right Radial] Respiratory 24 25 H 24 Rate Respiratory Rate [Bilateral Throughout] Blood Pressure 99/72 101/73 101/73 O2 Sat by Pulse 100 99 100 Oximetry 03/17/18 03/17/18 03/17/18 06:21 06:30 06:41 Temperature Pulse Rate 116 H 123 H 121 H Pulse Rate [ Bilateral Throughout] Pulse Rate [ Right Radial] Respiratory 24 24 24 Rate Respiratory Rate [Bilateral Throughout] Blood Pressure 104/74 102/76 102/76 O2 Sat by Pulse 100 100 100 Oximetry 03/17/18 03/17/18 03/17/18 06:51 07:00 07:10 Temperature Pulse Rate 122 H 120 H 120 H Pulse Rate [ Bilateral Throughout] Pulse Rate [ Right Radial] Respiratory 24 22 22 Rate Respiratory Rate [Bilateral Throughout] Blood Pressure 92/68 100/75 100/75 O2 Sat by Pulse 100 100 100 Oximetry 03/17/18 03/17/18 03/17/18 07:20 07:30 07:40 Temperature Pulse Rate 119 H 126 H 126 H Pulse Rate [ Bilateral Throughout] Pulse Rate [ Right Radial] Respiratory 22 22 22 Rate Respiratory Rate [Bilateral Throughout] Blood Pressure 111/78 103/74 103/74 O2 Sat by Pulse 100 99 99 Oximetry 03/17/18 03/17/18 03/17/18 07:49 07:50 08:00 Temperature 98.9 F Pulse Rate 126 H 132 H Pulse Rate [ Bilateral Throughout] Pulse Rate [ 115 H Right Radial] Respiratory 22 22 Rate Respiratory Rate [Bilateral Throughout] Blood Pressure 104/74 92/71 O2 Sat by Pulse 99 99 Oximetry 03/17/18 03/17/18 08:16 08:24 Temperature Pulse Rate 118 H Pulse Rate [ 118 H Bilateral Throughout] Pulse Rate [ Right Radial] Respiratory Rate Respiratory 20 Rate [Bilateral Throughout] Blood Pressure 94/69 O2 Sat by Pulse 100 Oximetry Constitutional: no acute distress, other (sedated and intubated) Eyes: non-icteric ENT: oropharynx moist, other (ETT in position) Neck: supple, JVD Ascultation: Bilateral: clear Cardiovascular: irregular rhythm (tachycardic) Gastrointestinal: normoactive bowel sounds, non-distended Integumentary: normal Extremities: no cyanosis Neurologic: unable to assess (RASS score -1) CBC and BMP: 03/17/18 04:35 03/15/18 19:47 ABG, PT/INR, D-dimer: ABG POC ABG pH 7.568 (7.35-7.45) H 03/17/18 03:27 POC ABG pCO2 23.4 (35-45) L 03/17/18 03:27 POC ABG pO2 78 (80-105) L 03/17/18 03:27 POC ABG HCO3 21.3 03/17/18 03:27 POC ABG Total CO2 22 03/17/18 03:27 POC ABG O2 Sat 97 03/17/18 03:27 PT/INR, D-dimer PT 15.2 Sec. (12.2-14.9) H 03/15/18 19:47 INR 1.16 (0.87-1.13) H 03/15/18 19:47 D-Dimer 1826.96 ng/mlDDU (0-234) H 03/15/18 19:47 Abnormal lab findings: Abnormal Labs 03/15/18 03/15/18 03/15/18 19:47 19:47 19:47 RDW 15.6 H [place] % (Auto) 8.2 H PT 15.2 H INR 1.16 H D-Dimer 1826.96 H POC ABG pH POC ABG pCO2 POC ABG pO2 Carbon Dioxide 21 L Glucose 124 H POC Glucose Total Creatine Kinase CK-MB (CK-2) NT-Pro-B Natriuret Pep Total Protein 6.2 L Albumin 3.7 L Free T4 03/15/18 03/16/18 03/16/18 19:47 02:17 05:29 RDW [place] % (Auto) PT INR D-Dimer POC ABG pH POC ABG pCO2 30.6 L POC ABG pO2 52 L Carbon Dioxide Glucose POC Glucose Total Creatine Kinase 232 H CK-MB (CK-2) 4.9 H NT-Pro-B Natriuret Pep 2498 H Total Protein Albumin Free T4 03/16/18 03/16/18 03/16/18 05:57 14:38 14:38 RDW [place] % (Auto) PT INR D-Dimer POC ABG pH 7.232 L POC ABG pCO2 45.1 H POC ABG pO2 Carbon Dioxide Glucose POC Glucose Total Creatine Kinase 402 H CK-MB (CK-2) 6.4 H NT-Pro-B Natriuret Pep Total Protein Albumin Free T4 1.67 H 03/16/18 03/17/18 23:25 03:27 RDW [place] % (Auto) PT INR D-Dimer POC ABG pH 7.568 H POC ABG pCO2 23.4 L POC ABG pO2 78 L Carbon Dioxide Glucose POC Glucose 184 H Total Creatine Kinase CK-MB (CK-2) NT-Pro-B Natriuret Pep Total Protein Albumin Free T4 Chest x-ray: report reviewed, image reviewed
[2018-03-17] MEDS: HEPARIN/ 0.45% NACL-25,000 UNIT/500 ML 25,000 UNIT/500 ML BAG IV SCH (09:08)
[2018-03-17] MEDS: BABY ASPIRIN PO SCH (09:09)
[2018-03-17] MEDS: PEPCID PO SCH ×2 (09:09→22:05)
[2018-03-17] MEDS: DELTASONE PO SCH (09:10)
[2018-03-17] MEDS: LASIX IV SCH (09:11)
--- NOTE | 2018-03-17 11:03 | Progress Note ---
Assessment and Plan Assessment: Acute on chronic respiratory failure - intubated Atrial fibrillation with RVR - apparently new diagnosis Acute HFpEF - CXR with mild pulmonary edema; pro-BNP 2498 Large pericardial effusion Severe MR ? Endocarditis ? PNA COPD H/o tobacco use Normal coronary arteries H/o prolapse of anterior leaflet of mitral valve Pulmonary HTN - RVSP 51mmHg Plan: Echo reviewed - EF 45-50%, LA severely dilated, severe MR, mod TR, mod pulm HTN with RVSP 51mmHg, large pericardial effusion seen adjacent to RV, no tamponade, mitral valve vegitation. D/w Dr. Carroll. F/u blood cultures, ID consultation pending. Pt is high risk for cardiac tamponade, d/c scheduled IV lasix and cont PRN diuresis as BPs permit, monitor VS closely. Optimize HR - initiate PO cardizem as BPs permit. Thyroid profile suggestive of ? hyperthyroidism - further eval/management per primary. Agree with heparin gtt. Consider conversion to OAC prior to hospital discharge. Vent management per pulmonary. Pt may ultimately require transfer to tertiary care facility for more aggressive management of pericardial effusion and potential endocarditis if clinical deterioration occurs. D/w pt's daughter at bedside. The patient has been seen in conjunction with Dr. Coe who agrees with the assessment and plan of care. Subjective Date of service: 03/17/18 Principal diagnosis: AFib; HF; respiratory failure; pericardial effusion Interval history: pt remains intubated, sedated. in afib with HR 120s - 130s, amio gtt infusing. BPs WNL. daughter at bedside. Objective Last Vital Signs Temp 98.9 F 03/17/18 07:49 Pulse 138 H 03/17/18 10:30 Resp 22 03/17/18 10:30 BP 104/75 03/17/18 10:30 Pulse Ox 99 03/17/18 10:30 - Physical Examination General: Other (intubated, sedated) Cardiac: Positive: irregularly irregular, S1/S2, Tachycardia Lungs: Positive: Decreased Breath Sounds, Oxygen, Ventilated Respirations Neuro: Positive: Other (intubated, sedated) Skin: Negative: Rash Musculoskeletal: No Pain Extremities: Absent: edema - Labs and Meds Cardiac Enzymes 03/16/18 Range/Units 14:38 CK-MB (CK-2) 6.4 H (0.0-4.0) ng/mL CBC 03/17/18 Range/Units 04:35 Hgb 10.8 (10.1-14.3) gm/dl Hct 32.6 (30.3-42.9) % Plt Count 279 (140-440) K/mm3 - Imaging and Cardiology EKG: report reviewed, image reviewed Echo: report reviewed (10/2017 showed EF 50-55%, restrictive diastolic filling, LA severely dilated, severe MR, prolapse of anterior leaflet of mitral valve, mild TR, RVSP 41mmHg, large pericardial effusion, no evidence of tamponade. ) Cardiac cath: report reviewed ( 08/2016 showed normal coronaries, severe MR, dilated LV and markedly dilated LA, EF around 45-50%. ) - Telemetry EKG Rhythm: Atrial Fibrillation
--- NOTE | 2018-03-17 11:40 | Progress Note ---
Assessment and Plan Assessment and plan: Acute on chronic hypoxemic respiratory failure. Continue mechanical ventilation per pulmonary. Patient currently sedated with Diprivan. Atrial fibrillation with RVR. New diagnosis. Echocardiogram completed on this hospitalization revealed EF 45-50%, LA severely dilated, severe MR, mod TR, mod pulm HTN with RVSP 51mmHg, large pericardial effusion seen adjacent to RV, no tamponade, questionable vegitation. I discussed with Dr. Campbell that Pt is high risk for cardiac tamponade, d/c scheduled IV lasix and cont PRN diuresis as BPs permit, monitor VS closely. Continue heparin drip and consider conversion to oral anticoagulation at discharge. Acute HFpEF. On admission, CXR with mild pulmonary edema; pro-BNP 2498 Large Pericardial effusion. Per cardiology. COPD. continue breathing treatments. IV steroids for pulmonary. Subcutaneous air in the neck. Etiology likely secondary to intubation. Consult surgery if worsens. H/o tobacco use Normal coronary arteries Severe MR H/o prolapse of anterior leaflet of mitral valve The high probability of a clinically significant, sudden or life threatening deterioration of the [cardiac and respiratory] system(s) required my full and direct attention, intervention and personal management. The aggregate critical care time was [32] minutes. This time is in addition to time spent performing reported procedures but includes the following: [x] Data Review and interpretation [x] Patient assessment and monitoring of vital signs [x] Documentation [x] Medication orders and management History Interval history: The patient is a 57 YO female with a past medical history of COPD requiring home O2 followed by Dr. Kirkpatrick, tobacco use, large pericardial effusion, normal coronary arteries, severe MR, PVCs, atrial ectopy. She is in the ICU intubated and sedated on Diprivan with no family members at the bedside. She presented to the emergency department via EMS from home with complaint of shortness of breath has been going on for the past 1-2 days prior to admission. She's been having some intermittent chest pain with this dyspnea. She has a past medical history of asthma, COPD on 2 L oxygen via nasal cannula, GERD, gallstones, mitral valve prolapse. Following arrival, pt was noted in be in AFib with RVR and was initiated on cardizem gtt and heparin gtt. Cardiology and pulmonary following. No new issues overnight. Hospitalist Physical - Constitutional Vitals: Temp Pulse Resp BP Pulse Ox 98.9 F 124 H 23 103/72 100 03/17/18 07:49 03/17/18 11:00 03/17/18 11:00 03/17/18 11:00 03/17/18 11:00 General appearance: Present: other (intubated, sedated) - EENT Eyes: Present: PERRL, EOM intact ENT: hearing intact, clear oral mucosa, dentition normal - Neck Neck: Present: supple, normal ROM - Respiratory Respiratory effort: normal Respiratory: bilateral: CTA - Cardiovascular Rhythm: regular Heart Sounds: Present: S1 & S2. Absent: gallop, rub - Extremities Extremities: no ischemia, No edema, Full ROM - Abdominal General gastrointestinal: soft, non-tender, non-distended, normal bowel sounds - Integumentary Integumentary: Present: clear, warm, dry - Neurologic Neurologic: CNII-XII intact, moves all extremities Results - Labs CBC & Chem 7: 03/17/18 04:35 03/15/18 19:47 Labs: Laboratory Last Values WBC 8.0 K/mm3 (4.5-11.0) 03/15/18 19:47 RBC 4.15 M/mm3 (3.65-5.03) 03/15/18 19:47 Hgb 10.8 gm/dl (10.1-14.3) 03/17/18 04:35 Hct 32.6 % (30.3-42.9) 03/17/18 04:35 MCV 89 fl (79-97) 03/15/18 19:47 MCH 29 pg (28-32) 03/15/18 19:47 MCHC 33 % (30-34) 03/15/18 19:47 RDW 15.6 % (13.2-15.2) H 03/15/18 19:47 Plt Count 279 K/mm3 (140-440) 03/17/18 04:35 Lymph % (Auto) 32.4 % (13.4-35.0) 03/15/18 19:47 [place] % (Auto) 8.2 % (0.0-7.3) H 03/15/18 19:47 Eos % (Auto) 0.8 % (0.0-4.3) 03/15/18 19:47 Baso % (Auto) 0.9 % (0.0-1.8) 03/15/18 19:47 Lymph # 2.6 K/mm3 (1.2-5.4) 03/15/18 19:47 [place] # 0.7 K/mm3 (0.0-0.8) 03/15/18 19:47 Eos # 0.1 K/mm3 (0.0-0.4) 03/15/18 19:47 Baso # 0.1 K/mm3 (0.0-0.1) 03/15/18 19:47 Seg Neutrophils % 57.7 % (40.0-70.0) 03/15/18 19:47 Seg Neutrophils # 4.6 K/mm3 (1.8-7.7) 03/15/18 19:47 PT 15.2 Sec. (12.2-14.9) H 03/15/18 19:47 INR 1.16 (0.87-1.13) H 03/15/18 19:47 APTT 28.4 Sec. (24.2-36.6) 03/15/18 19:47 D-Dimer 1826.96 ng/mlDDU (0-234) H 03/15/18 19:47 Heparin Anti-Xa Level 0.60 U.I./ml (0.3-0.7) 03/16/18 11:52 POC ABG pH 7.568 (7.35-7.45) H 03/17/18 03:27 POC ABG pCO2 23.4 (35-45) L 03/17/18 03:27 POC ABG pO2 78 (80-105) L 03/17/18 03:27 POC ABG HCO3 21.3 03/17/18 03:27 POC ABG Total CO2 22 03/17/18 03:27 POC ABG O2 Sat 97 03/17/18 03:27 POC ABG Base Excess -1 03/17/18 03:27 FiO2 45 % 03/17/18 03:27 Sodium 137 mmol/L (137-145) 03/15/18 19:47 Potassium 4.0 mmol/L (3.6-5.0) 03/15/18 19:47 Chloride 100.9 mmol/L (98-107) 03/15/18 19:47 Carbon Dioxide 21 mmol/L (22-30) L 03/15/18 19:47 Anion Gap 19 mmol/L 03/15/18 19:47 BUN 10 mg/dL (7-17) 03/15/18 19:47 Creatinine 0.9 mg/dL (0.7-1.2) 03/15/18 19:47 Estimated GFR > 60 ml/min 03/15/18 19:47 BUN/Creatinine Ratio 11 % 03/15/18 19:47 Glucose 124 mg/dL (65-100) H 03/15/18 19:47 POC Glucose 184 (70-105) H 03/16/18 23:25 Calcium 8.6 mg/dL (8.4-10.2) 03/15/18 19:47 Magnesium 1.80 mg/dL (1.7-2.3) 03/16/18 14:38 Total Bilirubin 1.20 mg/dL (0.1-1.2) 03/15/18 19:47 AST 31 units/L (5-40) 03/15/18 19:47 ALT 51 units/L (7-56) 03/15/18 19:47 Alkaline Phosphatase 80 units/L (35-129) 03/15/18 19:47 Total Creatine Kinase 402 units/L (30-135) H 03/16/18 14:38 CK-MB (CK-2) 6.4 ng/mL (0.0-4.0) H 03/16/18 14:38 CK-MB (CK-2) Rel Index 1.5 (0-4) 03/16/18 14:38 Troponin T < 0.010 ng/mL (0.00-0.029) 03/16/18 14:38 NT-Pro-B Natriuret Pep 2498 pg/mL (0-900) H 03/15/18 19:47 Total Protein 6.2 g/dL (6.3-8.2) L 03/15/18 19:47 Albumin 3.7 g/dL (3.9-5) L 03/15/18 19:47 Albumin/Globulin Ratio 1.5 % 03/15/18 19:47 TSH 0.500 mlU/mL (0.270-4.200) 03/16/18 14:38 Free T4 1.67 ng/dL (0.76-1.46) H 03/16/18 14:38 Nutrition/Malnutrition Assess - Dietary Evaluation Nutrition/Malnutrition Findings: Nutrition Notes Start: 03/16/18 11:39 Freq: Status: Active Protocol: Document 03/16/18 11:39 CAMPOS (Rec: 03/16/18 12:23 KH [email or web address]) Co-Sign 03/16/18 11:39 LP Nutrition Notes Need for Assessment generated from: MD Order Initial or Follow up Assessment Current Diagnosis COPD Heart Failure Current Diet 2g Na Diet Labs/Tests Albumin: 3.7 Pertinent Medications Propofol (47 Kcal), Solu- medrol, Lasix, Heparin Height 5 ft 3 in Weight 59.9 kg [place] Body Weight (lbs) 115.0 BMI 23.3 Weight Status Appropriate Subjective/Other Information RN screen for evaluation of nutritional intake. NGT placed for suction. Pt refused CT scan. Pt is on mechanical ventilation, so unable to answer questions. Percent of energy/protein needs met: 0%/0% Burn Absent Trauma Absent Current % PO NEGLIGIBLE #1 Nutrition Diagnosis Predicted suboptimal energy intake Etiology vent/COPD As Evidenced by Signs and Symptoms NPO Diagnosis Progress(for reassessment Continues documentation) Is patient on ventilator? Yes Is Patient Ambulatory and/or Out of Bed No REE-([place]. Jeor-confined to bed) 1400.316 Calculation Used for Recommendations [place] or Additional Notes Pro: 1.2-2 g/Kg BW (72g-120g/ day) Fluid: 1ml/kcal or per MD Nutrition Intervention Change Diet Order: Recommend NPO Nutrition Support: Vital AF 1.2 to start at 10ml/ hr and increase by 10ml q8h until goal rate of 50ml/hr achieved. Water flush of 80ml q4h. Kcal 1,487 Protein (gm) 90 Fluid (mL) 1,453 Goal #1 TF initiation up to goal rate of 50ml/hr Goal #2 TF tolerance Anticipated Discharge Needs: Unknown at this time Follow-Up By: 03/18/18 Additional Comments F/U: initiation of TF
[2018-03-17] MEDS: CARDIZEM PO SCH ×2 (11:56→17:41)
--- NOTE | 2018-03-17 16:19 | Consultation ---
History of Present Illness - Reason for Consult Consult date: 03/17/18 r/o endocarditis SBE Requesting physician: WALT CH - History of Present Illness 57 y/o female with history of COPD on home O2, heavy tobacco use, large pericardial effusion, normal coronary arteries, severe MR; admitted on 03/15/18 due to 2-day history of progressive shortness of breath. Patient is currently intubated, sedated unable to provide history. Per daughter, she came to [facility] on 02/27/18 due to cough and SOB, found to have pneumonia and was discharged on levaquin. She improved some but deteriorated 2 days before admission. Denies sick contact. In the ED, temp98.6, HR 118, R 24, BP 93/58, R 24. WBC 8. Hg 12.2. Plat 281. Creat 0.9. Tracheal aspirate 03/16/18 usual respiratory colton. CTA showed large pericardial effusion, cardiomegaly, groundglass changes bilateral lungs c/w pulmonary edema, moderate ot large right pleural effusion. Reportedly, the patient become progressively more distressed and had to be intubated, then transferred to the ICU. Evaulated by cards. TTE showed EF 45-50%, LA severely dilated, severe MR, mod TR, mod pulm HTN with RVSP 51mmHg, large pericardial effusion seen adjacent to RV, no tamponade, questionable MV vegetation. Past History Past Medical History: CAD, COPD, other (CHF, pericardial effusion) Medications and Allergies Allergies Allergy/AdvReac Type Severity Reaction Status Date / Time morphine Allergy Rash Verified 02/27/18 12:48 Home Medications Medication Instructions Recorded Confirmed Last Taken Type Tiotropium Br/Olodaterol HCl 2 gm IH BID 10/29/14 03/15/18 03/14/18 History [Stiolto Respimat Inhal Otto] Arformoterol Tartrate(Nf) [Brovana 1 puff INHALATION DAILY 07/22/16 03/15/18 03/14/18 History (Nf)] Ipratropium/Albuterol Sulfate 3 ml INHALATION BID 09/04/16 03/15/18 03/14/18 History [Iprat-Albut 0.5-3(2.5) mg/3 ml] Dexamethasone 6 mg PO ONCE #3 tablet 12/22/16 03/15/1819 Rx Ipratropium/Albuterol Sulfate 1 spray IH QID #1 mist.inhal 12/22/16 03/15/18 03/14/18 Rx [Combivent Respimat] Cyclobenzaprine HCl [Flexeril 5 MG 5 mg PO Q8HR PRN #20 tab 09/21/17 03/15/18 03/14/18 Rx TAB] ALBUTEROL NEB's [Proventil 0.083% 5 mg IH TID PRN #20 neb 02/27/18 03/15/18 03/14/18 Rx NEBS] Benzonatate [Tessalon Perles] 100 mg PO Q8HR #10 capsule 02/27/18 03/15/18 03/14/18 Rx Fluconazole [Diflucan TAB] 150 mg PO ONCE #2 tablet 02/27/18 03/15/18 03/14/18 Rx Furosemide [Lasix] 20 mg PO DAILY #7 tablet 02/27/18 03/15/18 03/15/18 Rx levoFLOXacin [Levaquin TAB] 500 mg PO QDAY #7 tablet 02/27/18 03/15/18 03/14/18 Rx predniSONE [Deltasone] 20 mg PO QDAY #5 tab 02/27/18 03/15/18 03/14/18 Rx Aspirin [Aspirin BABY CHEW TAB] 81 mg PO QDAY 03/15/18 03/15/18 03/15/18 History Active Meds: Active Medications Acetaminophen (Tylenol) 650 mg PO Q4H PRN PRN Reason: Headache Albuterol (Proventil) 2.5 mg IH Q3HRT PRN PRN Reason: Shortness Of Breath Albuterol/Ipratropium (Duoneb *Not For Prn Use*) 1 ampul IH Q6HRT [facility] Last Admin: 03/17/18 14:10 Dose: 1 ampul Documented by: Lipase/Protease/Amylase (Jada Parekh 10,500 Unit) 1 each FEEDTUBE PRN PRN PRN Reason: For Clogged Feeding Tube Aspirin (Baby Aspirin) 81 mg PO QDAY [facility] Last Admin: 03/17/18 09:09 Dose: 81 mg Documented by: Cyclobenzaprine HCl (Flexeril) 5 mg PO Q8H PRN PRN Reason: Muscle Spasm Last Admin: 03/17/18 05:38 Dose: 5 mg Documented by: Diltiazem HCl (Cardizem) 30 mg PO Q6HR [facility] Last Admin: 03/17/18 11:56 Dose: 30 mg Documented by: Famotidine (Pepcid) 20 mg PO BID [facility] Last Admin: 03/17/18 09:09 Dose: 20 mg Documented by: Hydrophilic Ointment (Vaseline Lip Therapy) 1 applic TP Q2HR PRN PRN Reason: Dry Lips Heparin Sodium/Sodium Chloride (Heparin/ 0.45% Nacl-25,000 Unit/500 Ml) 25,000 unit in 500 mls @ 16 mls/hr IV TITR [facility]; Protocol Last Titration: 03/17/18 14:04 Dose: 800 units/hr, 16 mls/hr Documented by: Propofol (Diprivan 10 Mg/Ml) 1,000 mg in 100 mls @ 1.797 mls/hr IV TITR [facility]; Protocol Last Admin: 03/16/18 23:26 Dose: 10 mcg/kg/min, 3.594 mls/hr Documented by: Amiodarone HCl 900 mg/ (Dextrose) 500 mls @ 33.33 mls/hr IV DIRECT NEL; Protocol Last Infusion: 03/17/18 04:10 Dose: 0.5 mg/min, 16.67 mls/hr Documented by: Lorazepam (Ativan) 1 mg IV Q4H PRN PRN Reason: Anxiety Last Admin: 03/17/18 07:30 Dose: 1 mg Documented by: Multi-Ingred Cream/Lotion/Oil/Oint (Artificial Tears Ophth Oint) 1 applic OU Q4HR PRN PRN Reason: Dry Eye(s) Nitroglycerin (Nitro-Bid 2%) 0.5 inch TP QIDNTG [facility]; Protocol Last Admin: 03/17/18 14:50 Dose: Not Given Documented by: Ondansetron HCl (Zofran) 4 mg IV Q8H PRN PRN Reason: Nausea And Vomiting Prednisone (Deltasone) 20 mg PO QDAY [facility] Last Admin: 03/17/18 09:10 Dose: 20 mg Documented by: Simple Syrup (Simple Syrup) 15 ml FEEDTUBE PRN PRN PRN Reason: Hypoglycemia Simple Syrup (Simple Syrup) 30 ml FEEDTUBE PRN PRN PRN Reason: Hypoglycemia Sodium Bicarbonate (Sodium Bicarbonate) 325 mg FEEDTUBE PRN PRN PRN Reason: For Clogged Feeding Tube Physical Examination - Physical Exam Narrative exam: Constitutional: sedated intubated Head, Ears, Nose: Normocephalic, atraumatic. External ears, nose normal Eyes: Conjunctivae/corneas clear. No icterus. No ptosis. Neck: Supple, no meningeal signs Oral: +ETT + NGT Cardiovascular: tachycardia Respiratory: Good air entry, clear to auscultation bilaterally GI: Soft, non-tender; bowel sounds normal.+umbilical hernia reducible Musculoskeletal: No pedal edema, no cyanosis. Skin: no rash Hem/Lymphatic: No palpable cervical or supraclavicular nodes. No lymphangitis Psych: sedated Neurological:sedated on amiodaron, heparin and diprovan gtt - Constitutional Vitals: Vital Signs Temp Pulse Resp BP Pulse Ox 98.9 F 120 H 21 111/72 98 03/17/18 15:59 03/17/18 16:00 03/17/18 16:00 03/17/18 16:00 03/17/18 16:00 Temperature -Last 24 Hours Temperature 98.9 F Temperature 99.2 F Temperature 98.9 F Temperature 98.8 F Temperature 98.9 F Temperature 99.1 F Temperature 98.8 F Results - Labs CBC & Chem 7: 03/17/18 04:35 03/15/18 19:47 Labs: Abnormal lab results 03/16/18 03/17/18 Range/Units 23:25 03:27 POC ABG pH 7.568 H (7.35-7.45) POC ABG pCO2 23.4 L (35-45) POC ABG pO2 78 L (80-105) POC Glucose 184 H (70-105) Assessment and Plan Cultures: 03/17/2018 blood cultures pending 03/16/2018 sputum Normal resp colton Assessment: 57 y/o female with history of COPD on home O2, heavy tobacco use, large pericardial effusion, normal coronary arteries, severe MR; admitted on 03/15/18 due to 2-day history of progressive shortness of breath 1) Acute respiratory failure: multifactorial - pulmonary HTN, CHF, pericardial effusion/pleural effusion,?pneumonia 2) 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 Bacterial endocarditis vs severe mixematous MV - TTE showed EF 45-50%, LA severely dilated, severe MR, mod TR, mod pulm HTN with RVSP 51mmHg, large pericardial effusion seen adjacent to RV, no tamponade, questionable MV vegetation. 3) Presumed pneumonia vs CHF: patient came to the ED on 02/27/18 found to have pneumonia sent home on levaquin. ?influenza vs ?post influenza pneumonia - CTA showed large pericardial effusion, cardiomegaly, groundglass changes bilateral lungs c/w pulmonary edema, moderate ot large right pleural effusion. 4) Large pericardial effusion and right pleural effusion: 5) COPD Recommendations: - f/u blood cultures - obtain procalcitonin and CRP - start tamiflu, vancomycin, ceftriaxone and levaquin for now - send influenza PCR - send MRSA screening PCR - consider ABBI for better valve visualization Overall prognosis guarded Will follow MD [facility] C: [phone] O: [phone] F: [phone]
[2018-03-17] MEDS ORDERED: .VANCOMYCIN VIAL 1,000 MG in NACL 0.9% 100 ML IV SCH (17:00)
[2018-03-17] MEDS ORDERED: ROCEPHIN/NS 2 GM/100 ML 2 GM/100 ML BAG IV SCH (17:00)
[2018-03-17] MEDS ORDERED: VANCOMYCIN 1,250 MG in NACL 0.9% 250ML 250 ML IV ONE (17:30)
[2018-03-17] MEDS: ZITHROMAX 500 MG in NACL 0.9% 250ML 250 ML IV SCH (17:55)
[2018-03-17] MEDS: DIPRIVAN 10 MG/ML 1,000 MG/100 ML BOTTLE IV SCH (20:32)
[2018-03-17] MEDS: ROCEPHIN/NS 2 GM/100 ML 2 GM/100 ML BAG IV SCH (21:57)
[2018-03-17] MEDS: TAMIFLU PO SCH (22:04)
[2018-03-18] MEDS: CARDIZEM PO SCH ×2 (00:01→06:15)
[2018-03-18] MEDS: DUONEB *Not for PRN Use IH SCH ×4 (03:29→21:00)
--- NOTE | 2018-03-18 04:49 | XRay Report ---
FINAL REPORT PROCEDURE: XR CHEST 1V AP TECHNIQUE: Chest radiograph anteroposterior view. CPT 17513 HISTORY: follow up respiratory failure COMPARISON: No prior studies are available for comparison. FINDINGS: Heart: The heart is enlarged Mediastinum/Vessels: Normal. Lungs/Pleural space: There are no active infiltrates. The lungs are well-expanded.. Bony thorax: No acute osseous abnormality. Life support devices: The endotracheal tube is in the distal trachea approximately 1 centimeter above the michelle. The NG tube is in the stomach. There is a right-sided central venous catheter. The tip i s in the superior vena cava.. IMPRESSION: The heart is enlarged There are no active infiltrates. The lungs are well-expanded.. The endotracheal tube is in the distal trachea approximately 1 centimeter above the michelle. The NG tu be is in the stomach. There is a right-sided central venous catheter. The tip is in the superior vena cava.. .
[2018-03-18] MEDS: ATIVAN IV PRN (05:31)
[2018-03-18] MEDS: VANCOMYCIN/NS 1 GM/250 ML 1 GM/250 ML BAG IV SCH ×2 (06:13→18:17)
[2018-03-18] MEDS: NITRO-BID 2% TP SCH ×4 (06:14→18:31)
--- NOTE | 2018-03-18 09:09 | Progress Note ---
Assessment and Plan Acute hypercapnia respiratory failure. Stabilized on vent CHF exacerbation. CXR with clearing of infiltrates A. fib with fast ventricular response. On amiodarone drip, now better. No fever or hypoxia present. Per Cards possible vegetation on echo, they have concern for BE vs myxomatous. CRP high, ESR normal. ID following, appreciate input Large pericardial pleural effusion. Being followed by cardiology, see cardiology note COPD Recommendations ABX per ID recommendations Once A. fib is controlled, sedation vacation and consider SBT Follow-up cards CHF recommendations DVT prophylaxis Discussed with family in detail. All questions answered. Critical care time was 31 minutes of [id number] evaluation and coordination of care Subjective Date of service: 03/18/18 Principal diagnosis: AFib; HF; respiratory failure; pericardial effusion Interval history: Intubated Objective Vital Signs - 12hr 03/17/18 03/17/18 03/17/18 21:10 21:20 21:30 Temperature Pulse Rate 105 H 107 H 114 H Pulse Rate [ Bilateral Throughout] Pulse Rate [ From Monitor] Pulse Rate [ Posterior Bilateral Throughout] Respiratory 22 24 22 Rate Respiratory Rate [Bilateral Throughout] Respiratory Rate [Posterior Bilateral Throughout] Blood Pressure 94/64 98/71 97/71 O2 Sat by Pulse 100 100 100 Oximetry 03/17/18 03/17/18 03/17/18 21:40 21:50 22:00 Temperature Pulse Rate 100 H 107 H 112 H Pulse Rate [ Bilateral Throughout] Pulse Rate [ From Monitor] Pulse Rate [ Posterior Bilateral Throughout] Respiratory 23 22 27 H Rate Respiratory Rate [Bilateral Throughout] Respiratory Rate [Posterior Bilateral Throughout] Blood Pressure 97/71 96/67 96/67 O2 Sat by Pulse 100 100 100 Oximetry 03/17/18 03/17/18 03/17/18 22:10 22:20 22:30 Temperature Pulse Rate 105 H 109 H 113 H Pulse Rate [ Bilateral Throughout] Pulse Rate [ From Monitor] Pulse Rate [ Posterior Bilateral Throughout] Respiratory 21 21 21 Rate Respiratory Rate [Bilateral Throughout] Respiratory Rate [Posterior Bilateral Throughout] Blood Pressure 94/69 96/69 93/65 O2 Sat by Pulse 100 100 100 Oximetry 03/17/18 03/17/18 03/17/18 22:40 22:50 23:00 Temperature Pulse Rate 97 H 109 H 106 H Pulse Rate [ Bilateral Throughout] Pulse Rate [ From Monitor] Pulse Rate [ Posterior Bilateral Throughout] Respiratory 21 21 23 Rate Respiratory Rate [Bilateral Throughout] Respiratory Rate [Posterior Bilateral Throughout] Blood Pressure 93/65 93/61 98/56 O2 Sat by Pulse 100 100 100 Oximetry 03/17/18 03/17/18 03/17/18 23:10 23:20 23:30 Temperature Pulse Rate 112 H 109 H 104 H Pulse Rate [ Bilateral Throughout] Pulse Rate [ From Monitor] Pulse Rate [ Posterior Bilateral Throughout] Respiratory 20 21 20 Rate Respiratory Rate [Bilateral Throughout] Respiratory Rate [Posterior Bilateral Throughout] Blood Pressure 98/56 86/65 88/60 O2 Sat by Pulse 100 100 100 Oximetry 03/17/18 03/17/18 03/17/18 23:32 23:40 23:50 Temperature Pulse Rate 113 H 114 H 102 H Pulse Rate [ Bilateral Throughout] Pulse Rate [ From Monitor] Pulse Rate [ Posterior Bilateral Throughout] Respiratory 21 22 Rate Respiratory Rate [Bilateral Throughout] Respiratory Rate [Posterior Bilateral Throughout] Blood Pressure 88/60 88/60 88/64 O2 Sat by Pulse 100 100 100 Oximetry 03/18/18 03/18/18 03/18/18 00:00 00:01 00:10 Temperature Pulse Rate 98 H 110 H 103 H Pulse Rate [ Bilateral Throughout] Pulse Rate [ 98 H From Monitor] Pulse Rate [ Posterior Bilateral Throughout] Respiratory 24 21 Rate Respiratory Rate [Bilateral Throughout] Respiratory Rate [Posterior Bilateral Throughout] Blood Pressure 97/66 97/66 97/66 O2 Sat by Pulse 100 100 Oximetry 03/18/18 03/18/18 03/18/18 00:14 00:15 00:30 Temperature Pulse Rate 102 H 105 H 115 H Pulse Rate [ Bilateral Throughout] Pulse Rate [ From Monitor] Pulse Rate [ Posterior Bilateral Throughout] Respiratory 21 23 21 Rate Respiratory Rate [Bilateral Throughout] Respiratory Rate [Posterior Bilateral Throughout] Blood Pressure 97/66 92/60 92/59 O2 Sat by Pulse 100 100 100 Oximetry 03/18/18 03/18/18 03/18/18 00:45 01:00 01:15 Temperature Pulse Rate 114 H 108 H 111 H Pulse Rate [ Bilateral Throughout] Pulse Rate [ From Monitor] Pulse Rate [ Posterior Bilateral Throughout] Respiratory 21 21 22 Rate Respiratory Rate [Bilateral Throughout] Respiratory Rate [Posterior Bilateral Throughout] Blood Pressure 95/64 87/61 90/60 O2 Sat by Pulse 100 100 100 Oximetry 03/18/18 03/18/18 03/18/18 01:30 01:45 02:00 Temperature Pulse Rate 119 H 113 H 111 H Pulse Rate [ 98 H Bilateral Throughout] Pulse Rate [ From Monitor] Pulse Rate [ Posterior Bilateral Throughout] Respiratory 20 21 20 Rate Respiratory 20 Rate [Bilateral Throughout] Respiratory Rate [Posterior Bilateral Throughout] Blood Pressure 86/62 95/60 90/56 O2 Sat by Pulse 100 99 99 Oximetry 03/18/18 03/18/18 03/18/18 02:15 02:30 02:45 Temperature Pulse Rate 115 H 119 H 101 H Pulse Rate [ Bilateral Throughout] Pulse Rate [ From Monitor] Pulse Rate [ Posterior Bilateral Throughout] Respiratory 23 20 21 Rate Respiratory Rate [Bilateral Throughout] Respiratory Rate [Posterior Bilateral Throughout] Blood Pressure 92/66 94/60 90/61 O2 Sat by Pulse 100 100 100 Oximetry 03/18/18 03/18/18 03/18/18 03:00 03:15 03:30 Temperature Pulse Rate 95 H 106 H 100 H Pulse Rate [ Bilateral Throughout] Pulse Rate [ From Monitor] Pulse Rate [ Posterior Bilateral Throughout] Respiratory 20 20 20 Rate Respiratory Rate [Bilateral Throughout] Respiratory Rate [Posterior Bilateral Throughout] Blood Pressure 89/55 84/58 80/56 O2 Sat by Pulse 99 100 100 Oximetry 03/18/18 03/18/18 03/18/18 03:31 03:45 04:00 Temperature 99.3 F Pulse Rate 84 116 H Pulse Rate [ Bilateral Throughout] Pulse Rate [ 111 H From Monitor] Pulse Rate [ Posterior Bilateral Throughout] Respiratory 23 23 Rate Respiratory Rate [Bilateral Throughout] Respiratory Rate [Posterior Bilateral Throughout] Blood Pressure 80/56 89/49 84/60 O2 Sat by Pulse 100 100 100 Oximetry 03/18/18 03/18/18 03/18/18 04:15 04:30 04:45 Temperature Pulse Rate 103 H 119 H 108 H Pulse Rate [ Bilateral Throughout] Pulse Rate [ From Monitor] Pulse Rate [ Posterior Bilateral Throughout] Respiratory 22 20 21 Rate Respiratory Rate [Bilateral Throughout] Respiratory Rate [Posterior Bilateral Throughout] Blood Pressure 76/58 95/66 100/71 O2 Sat by Pulse 100 98 100 Oximetry 03/18/18 03/18/18 03/18/18 05:00 05:16 05:30 Temperature Pulse Rate 120 H 119 H 111 H Pulse Rate [ Bilateral Throughout] Pulse Rate [ From Monitor] Pulse Rate [ Posterior Bilateral Throughout] Respiratory 24 20 21 Rate Respiratory Rate [Bilateral Throughout] Respiratory Rate [Posterior Bilateral Throughout] Blood Pressure 95/66 98/68 87/63 O2 Sat by Pulse 100 98 98 Oximetry 03/18/18 03/18/18 03/18/18 05:45 06:00 06:14 Temperature Pulse Rate 126 H 121 H 106 H Pulse Rate [ Bilateral Throughout] Pulse Rate [ From Monitor] Pulse Rate [ Posterior Bilateral Throughout] Respiratory 20 22 Rate Respiratory Rate [Bilateral Throughout] Respiratory Rate [Posterior Bilateral Throughout] Blood Pressure 87/65 95/63 95/63 O2 Sat by Pulse 98 99 Oximetry 03/18/18 03/18/18 03/18/18 06:15 06:30 06:45 Temperature Pulse Rate 116 H 122 H 106 H Pulse Rate [ Bilateral Throughout] Pulse Rate [ From Monitor] Pulse Rate [ Posterior Bilateral Throughout] Respiratory 20 20 20 Rate Respiratory Rate [Bilateral Throughout] Respiratory Rate [Posterior Bilateral Throughout] Blood Pressure 93/65 91/64 90/61 O2 Sat by Pulse 99 100 98 Oximetry 03/18/18 03/18/18 03/18/18 07:00 07:15 07:30 Temperature Pulse Rate 111 H 115 H 110 H Pulse Rate [ 96 H Bilateral Throughout] Pulse Rate [ From Monitor] Pulse Rate [ 94 H Posterior Bilateral Throughout] Respiratory 20 21 22 Rate Respiratory 20 Rate [Bilateral Throughout] Respiratory 22 Rate [Posterior Bilateral Throughout] Blood Pressure 93/65 94/68 91/59 O2 Sat by Pulse 98 99 100 Oximetry 03/18/18 03/18/18 03/18/18 07:45 08:00 08:15 Temperature 98.6 F Pulse Rate 104 H 105 H 106 H Pulse Rate [ Bilateral Throughout] Pulse Rate [ 110 H From Monitor] Pulse Rate [ Posterior Bilateral Throughout] Respiratory 22 23 21 Rate Respiratory Rate [Bilateral Throughout] Respiratory Rate [Posterior Bilateral Throughout] Blood Pressure 89/59 94/57 87/57 O2 Sat by Pulse 100 98 99 Oximetry 03/18/18 08:30 Temperature Pulse Rate 119 H Pulse Rate [ Bilateral Throughout] Pulse Rate [ From Monitor] Pulse Rate [ Posterior Bilateral Throughout] Respiratory 22 Rate Respiratory Rate [Bilateral Throughout] Respiratory Rate [Posterior Bilateral Throughout] Blood Pressure 84/61 O2 Sat by Pulse 99 Oximetry Constitutional: no acute distress, other (sedated and intubated) Eyes: non-icteric ENT: oropharynx moist, other (ETT in position) Neck: supple, JVD Ascultation: Bilateral: clear Cardiovascular: irregular rhythm (tachycardic) Gastrointestinal: normoactive bowel sounds, non-distended Integumentary: normal Extremities: no cyanosis Neurologic: unable to assess (RASS score -1) CBC and BMP: 03/19/18 04:16 03/19/18 04:16 ABG, PT/INR, D-dimer: ABG POC ABG pH 7.430 (7.35-7.45) 03/18/18 05:28 POC ABG pCO2 33.3 (35-45) L 03/18/18 05:28 POC ABG pO2 82 (80-105) 03/18/18 05:28 POC ABG HCO3 22.1 03/18/18 05:28 POC ABG Total CO2 23 03/18/18 05:28 POC ABG O2 Sat 97 03/18/18 05:28 PT/INR, D-dimer PT 15.2 Sec. (12.2-14.9) H 03/15/18 19:47 INR 1.16 (0.87-1.13) H 03/15/18 19:47 D-Dimer 1826.96 ng/mlDDU (0-234) H 03/15/18 19:47 Abnormal lab findings: Abnormal Labs 03/15/18 03/15/18 03/15/18 19:47 19:47 19:47 RDW 15.6 H [place] % (Auto) 8.2 H PT 15.2 H INR 1.16 H D-Dimer 1826.96 H POC ABG pH POC ABG pCO2 POC ABG pO2 Carbon Dioxide 21 L Glucose 124 H POC Glucose Total Creatine Kinase CK-MB (CK-2) C-Reactive Protein NT-Pro-B Natriuret Pep Total Protein 6.2 L Albumin 3.7 L Free T4 03/15/18 03/16/18 03/16/18 19:47 02:17 05:29 RDW [place] % (Auto) PT INR D-Dimer POC ABG pH POC ABG pCO2 30.6 L POC ABG pO2 52 L Carbon Dioxide Glucose POC Glucose Total Creatine Kinase 232 H CK-MB (CK-2) 4.9 H C-Reactive Protein NT-Pro-B Natriuret Pep 2498 H Total Protein Albumin Free T4 03/16/18 03/16/18 03/16/18 05:57 14:38 14:38 RDW [place] % (Auto) PT INR D-Dimer POC ABG pH 7.232 L POC ABG pCO2 45.1 H POC ABG pO2 Carbon Dioxide Glucose POC Glucose Total Creatine Kinase 402 H CK-MB (CK-2) 6.4 H C-Reactive Protein NT-Pro-B Natriuret Pep Total Protein Albumin Free T4 1.67 H 03/16/18 03/17/18 03/17/18 23:25 03:27 17:22 RDW [place] % (Auto) PT INR D-Dimer POC ABG pH 7.568 H POC ABG pCO2 23.4 L POC ABG pO2 78 L Carbon Dioxide Glucose POC Glucose 184 H Total Creatine Kinase CK-MB (CK-2) C-Reactive Protein 2.90 H NT-Pro-B Natriuret Pep Total Protein Albumin Free T4 03/18/18 05:28 RDW [place] % (Auto) PT INR D-Dimer POC ABG pH POC ABG pCO2 33.3 L POC ABG pO2 Carbon Dioxide Glucose POC Glucose Total Creatine Kinase CK-MB (CK-2) C-Reactive Protein NT-Pro-B Natriuret Pep Total Protein Albumin Free T4 Chest x-ray: report reviewed, image reviewed Additional Studies: 03/17/18 03/17/18 12:28 17:22 ESR 17 C-Reactive Protein 2.90 H
[2018-03-18] MEDS: ROCEPHIN/NS 2 GM/100 ML 2 GM/100 ML BAG IV SCH (09:35)
[2018-03-18] MEDS: CORDARONE 900 MG in D5W 482 ML IV SCH (09:35)
[2018-03-18] MEDS: ZITHROMAX 500 MG in NACL 0.9% 250ML 250 ML IV SCH (09:41)
[2018-03-18] MEDS: DELTASONE PO SCH (09:42)
[2018-03-18] MEDS: PEPCID PO SCH ×2 (09:42→22:03)
[2018-03-18] MEDS: BABY ASPIRIN PO SCH (09:42)
[2018-03-18] MEDS: TAMIFLU PO SCH ×2 (09:55→22:04)
--- NOTE | 2018-03-18 10:50 | Progress Note ---
Assessment and Plan Assessment: Acute on chronic respiratory failure - intubated Atrial fibrillation with RVR - apparently new diagnosis Acute HFpEF - CXR with mild pulmonary edema; pro-BNP 2498 Large pericardial effusion Severe MR Mitral valve vegetation ? PNA / ? 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 Pulmonary HTN - RVSP 51mmHg Plan: ID recs noted. HR improving. D/c PO cardizem due to hypotension. Cont amio gtt. Cont PRN diuresis as BPs permit, monitor VS closely. Thyroid profile suggestive of ? hyperthyroidism - further eval/management per primary. Agree with heparin gtt. Consider conversion to OAC prior to hospital discharge. Vent management per pulmonary. D/w pt's daughters at bedside. The patient has been seen in conjunction with Dr. Coe who agrees with the assessment and plan of care. Subjective Date of service: 03/18/18 Principal diagnosis: AFib; HF; respiratory failure; pericardial effusion Interval history: pt remains intubated, off sedation, alert and following commands appropriately. in afib with HR 100s, amio gtt infusing. BPs low. daughters at bedside. Objective Last Vital Signs Temp 98.6 F 03/18/18 08:00 Pulse 114 H 03/18/18 09:41 Resp 20 03/18/18 09:30 BP 91/58 03/18/18 09:41 Pulse Ox 99 03/18/18 09:30 - Physical Examination General: Other (intubated, alert) Cardiac: Positive: irregularly irregular, S1/S2 Lungs: Positive: Decreased Breath Sounds, Oxygen, Ventilated Respirations Neuro: Positive: Other (intubated, alert) Skin: Negative: Rash Musculoskeletal: No Pain Extremities: Absent: edema - Imaging and Cardiology EKG: report reviewed, image reviewed Echo: report reviewed (03/2018: EF 45-50%, LA severely dilated, severe MR, mod TR, mod pulm HTN with RVSP 51mmHg, large pericardial effusion seen adjacent to RV, no tamponade, mitral valve vegitation. 10/2017 showed EF 50-55%, restrictive diastolic filling, LA severely dilated, severe MR, prolapse of anterior leaflet of mitral valve, mild TR, RVSP 41mmHg, large pericardial effusion, no evidence of tamponade. ) Cardiac cath: report reviewed ( 08/2016 showed normal coronaries, severe MR, dilated LV and markedly dilated LA, EF around 45-50%. ) - Telemetry EKG Rhythm: Atrial Fibrillation
--- NOTE | 2018-03-18 11:47 | Progress Note ---
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 DDx. Bacterial endocarditis vs severe myxomatous MV - TTE showed EF 45-50%, LA severely dilated, severe MR, mod TR, mod pulm HTN with RVSP 51mmHg, large pericardial effusion seen adjacent to RV, no tamponade, questionable MV vegetation. - CRP=2.9 3) Presumed pneumonia vs CHF: patient came to the ED on 02/27/18 found to have pneumonia sent home on levaquin. ?influenza vs ?post influenza pneumonia - CTA showed large pericardial effusion, cardiomegaly, groundglass changes bilateral lungs c/w pulmonary edema, moderate ot large right pleural effusion. - repeat CXR clear lungs - rapid influenza neg 4) Large pericardial effusion and right pleural effusion: per cards 5) COPD Recommendations: - f/u blood cultures - f/u procalcitonin - continue tamiflu, vancomycin, ceftriaxone and azithromycin D2 - f/u influenza PCR - f/u MRSA screening PCR - consider ABBI for better valve visualization Dr Montgomery will be rounding tomorrow MD [facility] C: [phone] O: [phone] F: [phone] Subjective Date of service: 03/18/18 Principal diagnosis: AFib; HF; respiratory failure; pericardial effusion Interval history: Remains intubated on the vent CMVfio2 45%, p 6, on amiodarone and heparin gtt. No fever noted, remains tachycardic and hypotension on monitor. Objective - Exam Narrative Exam: Constitutional: sedated but alert and follows commands, intubated Head, Ears, Nose: Normocephalic, atraumatic. External ears, nose normal Eyes: Conjunctivae/corneas clear. No icterus. No ptosis. Neck: Supple, no meningeal signs Oral: +ETT + NGT Cardiovascular: tachycardia Respiratory: scattered rhonchi GI: Soft, non-tender; bowel sounds normal.+umbilical hernia reducible Musculoskeletal: No pedal edema, no cyanosis. Skin: no rash Hem/Lymphatic: No palpable cervical or supraclavicular nodes. No lymphangitis Psych: sedated Neurological:sedated on amiodaron, heparin and diprovan gtt - Constitutional Vitals: Vital Signs Temp Pulse Resp BP Pulse Ox 98.6 F 114 H 20 91/58 99 03/18/18 08:00 03/18/18 09:41 03/18/18 09:30 03/18/18 09:41 03/18/18 09:30 Temperature -Last 24 Hours Temperature 98.6 F Temperature 99.3 F Temperature 98.4 F Temperature 97.9 F Temperature 98.9 F Temperature 99.2 F - Labs CBC & Chem 7: 03/17/18 04:35 03/15/18 19:47 Labs: Abnormal lab results 03/17/18 03/18/18 Range/Units 17:22 05:28 POC ABG pCO2 33.3 L (35-45) C-Reactive Protein 2.90 H (0.00-1.30) mg/dL
--- NOTE | 2018-03-18 13:04 | Progress Note ---
Assessment and Plan Assessment and plan: Acute on chronic hypoxemic respiratory failure. Continue mechanical ventilation per pulmonary. Patient currently sedated with Diprivan. New Atrial fibrillation with RVR. Echocardiogram completed on this hospitalization revealed EF 45-50%, LA severely dilated, severe MR, mod TR, mod pulm HTN with RVSP 51mmHg, large pericardial effusion seen adjacent to RV, no tamponade, questionable vegitation. I discussed with Dr. Campbell that Pt is high risk for cardiac tamponade, d/c scheduled IV lasix and cont PRN diuresis as BPs permit, monitor VS closely. Continue heparin drip and consider conversion to oral anticoagulation at discharge. Continue IV amiodarone for rate control. 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 Blood cultures thus far negative. Follow-up pro- calcitonin. Consider ABBI for further evaluation. Presumed pneumonia. ? Post influenza pneumonia. Continue Tamiflu vancomycin and Rocephin and azithromycin. Follow-up influenza PCR. Follow-up MRSA screening PCR. ID following Acute HFpEF. On admission, CXR with mild pulmonary edema; pro-BNP 2498 Large Pericardial effusion. Per cardiology. COPD. continue breathing treatments. IV steroids for pulmonary. Subcutaneous air in the neck. Etiology likely secondary to intubation. Consult surgery if worsens. H/o tobacco use Normal coronary arteries Severe MR H/o prolapse of anterior leaflet of mitral valve The high probability of a clinically significant, sudden or life threatening deterioration of the [cardiac and respiratory] system(s) required my full and direct attention, intervention and personal management. The aggregate critical care time was [33] minutes. This time is in addition to time spent performing reported procedures but includes the following: [x] Data Review and interpretation [x] Patient assessment and monitoring of vital signs [x] Documentation [x] Medication orders and management History Interval history: The patient is a 57 YO female with a past medical history of COPD requiring home O2 followed by Dr. Kirkpatrick, tobacco use, large pericardial effusion, normal coronary arteries, severe MR, PVCs, atrial ectopy. She is in the ICU intubated and sedated on Diprivan with no family members at the bedside. She presented to the emergency department via EMS from home with complaint of shortness of breath has been going on for the past 1-2 days prior to admission. She's been having some intermittent chest pain with this dyspnea. She has a past medical history of asthma, COPD on 2 L oxygen via nasal cannula, GERD, gallstones, mitral valve prolapse. Following arrival, pt was noted in be in AFib with RVR and was initiated on cardizem gtt and heparin gtt. Cardiology and pulmonary following. No new issues overnight. Hospitalist Physical - Constitutional Vitals: Temp Pulse Resp BP Pulse Ox 97.5 F L 125 H 28 H 94/67 100 03/18/18 12:00 03/18/18 12:16 03/18/18 12:16 03/18/18 12:16 03/18/18 12:16 General appearance: Present: other (intubated, sedated) - EENT Eyes: Present: PERRL, EOM intact ENT: hearing intact, clear oral mucosa, dentition normal - Neck Neck: Present: supple, normal ROM - Respiratory Respiratory effort: normal Respiratory: bilateral: CTA - Cardiovascular Rhythm: regular Heart Sounds: Present: S1 & S2. Absent: gallop, rub - Extremities Extremities: no ischemia, No edema, Full ROM - Abdominal General gastrointestinal: soft, non-tender, non-distended, normal bowel sounds - Integumentary Integumentary: Present: clear, warm, dry - Neurologic Neurologic: CNII-XII intact, moves all extremities Results - Labs CBC & Chem 7: 03/17/18 04:35 03/15/18 19:47 Labs: Laboratory Last Values WBC 8.0 K/mm3 (4.5-11.0) 03/15/18 19:47 RBC 4.15 M/mm3 (3.65-5.03) 03/15/18 19:47 Hgb 10.8 gm/dl (10.1-14.3) 03/17/18 04:35 Hct 32.6 % (30.3-42.9) 03/17/18 04:35 MCV 89 fl (79-97) 03/15/18 19:47 MCH 29 pg (28-32) 03/15/18 19:47 MCHC 33 % (30-34) 03/15/18 19:47 RDW 15.6 % (13.2-15.2) H 03/15/18 19:47 Plt Count 279 K/mm3 (140-440) 03/17/18 04:35 Lymph % (Auto) 32.4 % (13.4-35.0) 03/15/18 19:47 [place] % (Auto) 8.2 % (0.0-7.3) H 03/15/18 19:47 Eos % (Auto) 0.8 % (0.0-4.3) 03/15/18 19:47 Baso % (Auto) 0.9 % (0.0-1.8) 03/15/18 19:47 Lymph # 2.6 K/mm3 (1.2-5.4) 03/15/18 19:47 [place] # 0.7 K/mm3 (0.0-0.8) 03/15/18 19:47 Eos # 0.1 K/mm3 (0.0-0.4) 03/15/18 19:47 Baso # 0.1 K/mm3 (0.0-0.1) 03/15/18 19:47 Seg Neutrophils % 57.7 % (40.0-70.0) 03/15/18 19:47 Seg Neutrophils # 4.6 K/mm3 (1.8-7.7) 03/15/18 19:47 ESR 17 mm/Hr (0-20) 03/17/18 12:28 PT 15.2 Sec. (12.2-14.9) H 03/15/18 19:47 INR 1.16 (0.87-1.13) H 03/15/18 19:47 APTT 28.4 Sec. (24.2-36.6) 03/15/18 19:47 D-Dimer 1826.96 ng/mlDDU (0-234) H 03/15/18 19:47 Heparin Anti-Xa Level 0.46 U.I./ml (0.3-0.7) 03/18/18 04:14 POC ABG pH 7.430 (7.35-7.45) 03/18/18 05:28 POC ABG pCO2 33.3 (35-45) L 03/18/18 05:28 POC ABG pO2 82 (80-105) 03/18/18 05:28 POC ABG HCO3 22.1 03/18/18 05:28 POC ABG Total CO2 23 03/18/18 05:28 POC ABG O2 Sat 97 03/18/18 05:28 POC ABG Base Excess -2 03/18/18 05:28 FiO2 45 % 03/18/18 05:28 Sodium 137 mmol/L (137-145) 03/15/18 19:47 Potassium 4.0 mmol/L (3.6-5.0) 03/15/18 19:47 Chloride 100.9 mmol/L (98-107) 03/15/18 19:47 Carbon Dioxide 21 mmol/L (22-30) L 03/15/18 19:47 Anion Gap 19 mmol/L 03/15/18 19:47 BUN 10 mg/dL (7-17) 03/15/18 19:47 Creatinine 0.9 mg/dL (0.7-1.2) 03/15/18 19:47 Estimated GFR > 60 ml/min 03/15/18 19:47 BUN/Creatinine Ratio 11 % 03/15/18 19:47 Glucose 124 mg/dL (65-100) H 03/15/18 19:47 POC Glucose 184 (70-105) H 03/16/18 23:25 Calcium 8.6 mg/dL (8.4-10.2) 03/15/18 19:47 Magnesium 1.80 mg/dL (1.7-2.3) 03/16/18 14:38 Total Bilirubin 1.20 mg/dL (0.1-1.2) 03/15/18 19:47 AST 31 units/L (5-40) 03/15/18 19:47 ALT 51 units/L (7-56) 03/15/18 19:47 Alkaline Phosphatase 80 units/L (35-129) 03/15/18 19:47 Total Creatine Kinase 402 units/L (30-135) H 03/16/18 14:38 CK-MB (CK-2) 6.4 ng/mL (0.0-4.0) H 03/16/18 14:38 CK-MB (CK-2) Rel Index 1.5 (0-4) 03/16/18 14:38 Troponin T < 0.010 ng/mL (0.00-0.029) 03/16/18 14:38 C-Reactive Protein 2.90 mg/dL (0.00-1.30) H 03/17/18 17:22 NT-Pro-B Natriuret Pep 2498 pg/mL (0-900) H 03/15/18 19:47 Total Protein 6.2 g/dL (6.3-8.2) L 03/15/18 19:47 Albumin 3.7 g/dL (3.9-5) L 03/15/18 19:47 Albumin/Globulin Ratio 1.5 % 03/15/18 19:47 TSH 0.500 mlU/mL (0.270-4.200) 03/16/18 14:38 Free T4 1.67 ng/dL (0.76-1.46) H 03/16/18 14:38 Influenza A (Rapid) Negative (Negative) 03/17/18 20:15 Influenza B (Rapid) Negative (Negative) 03/17/18 20:15 Nutrition/Malnutrition Assess - Dietary Evaluation Nutrition/Malnutrition Findings: Nutrition Notes Start: 03/16/18 11:39 Freq: Status: Active Protocol: Document 03/18/18 11:53 KH (Rec: 03/18/18 12:10 [email or web address]) Co-Sign 03/18/18 11:53 OL Nutrition Notes Initial or Follow up Reassessment Current Diagnosis COPD Heart Failure Current Diet Vital AF at 50ml/hr Labs/Tests Reviewed Pertinent Medications Propofol at 3.594 ml/hr (95 kcals), Height 5 ft 3 in Weight 62.8 kg [place] Body Weight (lbs) 115.0 BMI 24.5 Weight Status Appropriate Subjective/Other Information Observed TF running at goal rate of 50 ml/hr. Pt tolerating TF per pt. nurse. Percent of energy/protein needs met: 100%/100% Burn Absent Trauma Absent Current % PO NEGLIGIBLE #2 Nutrition Diagnosis Inadequate oral intake Etiology On vent As Evidenced by Signs and Symptoms Need for TF #1 Nutrition Diagnosis Predicted suboptimal energy intake Diagnosis Progress(for reassessment Resolved documentation) Is patient on ventilator? Yes Is Patient Ambulatory and/or Out of Bed No REE-(Putnam-St. Jeor-confined to bed) 1435.080 Calculation [facility] Additional Notes Pro: 1.2-2 g/Kg BW (75g-126g/ day) Fluid: 1ml/kcal or per MD Nutrition Intervention Change Diet Order: Continue TF Nutrition Support: Vital AF 1.2 at 50ml/hr. Water flush of 80ml q4h. Kcal 1,487 Protein (gm) 90 Fluid (mL) 1,453 Goal #1 TF tolerance Anticipated Discharge Needs: Unknown at this time Follow-Up By: 03/25/18 Additional Comments F/U: TF tolerance
[2018-03-18] MEDS: HEPARIN/ 0.45% NACL-25,000 UNIT/500 ML 25,000 UNIT/500 ML BAG IV SCH (18:19)
[2018-03-19] MEDS: DUONEB *Not for PRN Use IH SCH ×4 (02:20→19:11)
[2018-03-19] MEDS: ATIVAN IV PRN ×2 (02:24→10:14)
[2018-03-19 05:03] LABS: Basophils # (Auto) 0.1 K/mm3 (0.0-0.1); Basophils % (Auto) 0.3 % (0.0-1.8); Eosinophils % (Auto) 0.1 % (0.0-4.3); Hematocrit 36.4 % (30.3-42.9); Hemoglobin 11.7 gm/dl (10.1-14.3); Lymphocytes % (Auto) 16.4 % (13.4-35.0); Mean Corpuscular HGB Conc 32 % (30-34); Mean Corpuscular Volume 90 fl (79-97); Monocytes # (Auto) 1.6 K/mm3 (0.0-0.8); Monocytes % (Auto) 8.9 % (0.0-7.3); Platelet Count 239 K/mm3 (140-440); Red Blood Count 4.06 M/mm3 (3.65-5.03); Red Cell Distribution Width 16.3 % (13.2-15.2)
[2018-03-19 05:22] LABS: BUN/Creatinine Ratio 30; Blood Urea Nitrogen 21 mg/dL (7-17); Calcium 8.2 mg/dL (8.4-10.2); Hemolysis Index 89
[2018-03-19] MEDS: NITRO-BID 2% TP SCH ×5 (05:44→18:53)
[2018-03-19] MEDS: VANCOMYCIN/NS 1 GM/250 ML 1 GM/250 ML BAG IV SCH ×2 (05:45→18:53)
--- NOTE | 2018-03-19 08:43 | Progress Note ---
Assessment and Plan Acute hypercapnia respiratory failure. Extubated to NIV. Well tolerated CHF exacerbation. CXR with clearing of infiltrates A. fib with fast ventricular response. On amiodarone drip, now better. No fever or hypoxia present. Per Cards possible vegetation on echo, they have concern for BE vs myxomatous. CRP high, ESR normal. ID following, appreciate input - high WBC, not on steroids Large pericardial pleural effusion. Being followed by cardiology, see cardiology note COPD Recommendations ABX per ID Rate control Wean off NIV to either HFO or NC Follow-up cards CHF recommendations DVT prophylaxis Discussed with family in detail. All questions answered. Critical care time was 31 minutes of [id number] evaluation and coordination of care Subjective Date of service: 03/19/18 Principal diagnosis: AFib; HF; respiratory failure; pericardial effusion Interval history: Extubated on BPAP support.No SOB , cough minimal..No fever or chest pain Objective Vital Signs - 12hr 03/18/18 03/18/18 03/18/18 20:45 21:00 21:05 Temperature Pulse Rate 105 H 107 H Pulse Rate [ Bilateral Throughout] Pulse Rate [ 106 H Posterior Bilateral Throughout] Respiratory 23 21 Rate Respiratory Rate [Bilateral Throughout] Respiratory 22 Rate [Posterior Bilateral Throughout] Blood Pressure 107/68 104/64 O2 Sat by Pulse 99 99 Oximetry 03/18/18 03/18/18 03/18/18 21:15 21:30 21:45 Temperature Pulse Rate 108 H 98 H 108 H Pulse Rate [ Bilateral Throughout] Pulse Rate [ Posterior Bilateral Throughout] Respiratory 20 23 20 Rate Respiratory Rate [Bilateral Throughout] Respiratory Rate [Posterior Bilateral Throughout] Blood Pressure 106/70 101/66 92/67 O2 Sat by Pulse 100 100 100 Oximetry 03/18/18 03/18/18 03/18/18 22:00 22:15 22:30 Temperature Pulse Rate 107 H 113 H 106 H Pulse Rate [ Bilateral Throughout] Pulse Rate [ Posterior Bilateral Throughout] Respiratory 21 21 20 Rate Respiratory Rate [Bilateral Throughout] Respiratory Rate [Posterior Bilateral Throughout] Blood Pressure 109/66 103/72 93/67 O2 Sat by Pulse 100 100 100 Oximetry 03/18/18 03/18/18 03/18/18 22:45 23:00 23:15 Temperature Pulse Rate 105 H 111 H 107 H Pulse Rate [ Bilateral Throughout] Pulse Rate [ Posterior Bilateral Throughout] Respiratory 23 20 20 Rate Respiratory Rate [Bilateral Throughout] Respiratory Rate [Posterior Bilateral Throughout] Blood Pressure 94/68 95/69 97/70 O2 Sat by Pulse 100 100 100 Oximetry 03/18/18 03/18/18 03/18/18 23:18 23:30 23:32 Temperature 99.5 F Pulse Rate 98 H 105 H Pulse Rate [ Bilateral Throughout] Pulse Rate [ Posterior Bilateral Throughout] Respiratory 20 20 Rate Respiratory Rate [Bilateral Throughout] Respiratory Rate [Posterior Bilateral Throughout] Blood Pressure 97/70 105/69 O2 Sat by Pulse 100 100 Oximetry 03/18/18 03/18/18 03/19/18 23:44 23:45 00:00 Temperature Pulse Rate 108 H 105 H 109 H Pulse Rate [ Bilateral Throughout] Pulse Rate [ Posterior Bilateral Throughout] Respiratory 20 24 Rate Respiratory Rate [Bilateral Throughout] Respiratory Rate [Posterior Bilateral Throughout] Blood Pressure 97/65 97/65 97/65 O2 Sat by Pulse 100 100 100 Oximetry 03/19/18 03/19/18 03/19/18 00:16 00:30 00:46 Temperature Pulse Rate 111 H 117 H 113 H Pulse Rate [ Bilateral Throughout] Pulse Rate [ Posterior Bilateral Throughout] Respiratory 24 22 23 Rate Respiratory Rate [Bilateral Throughout] Respiratory Rate [Posterior Bilateral Throughout] Blood Pressure 94/64 102/68 102/68 O2 Sat by Pulse 100 100 97 Oximetry 03/19/18 03/19/18 03/19/18 01:00 01:16 01:30 Temperature Pulse Rate 119 H 117 H 118 H Pulse Rate [ Bilateral Throughout] Pulse Rate [ Posterior Bilateral Throughout] Respiratory 24 28 H 25 H Rate Respiratory Rate [Bilateral Throughout] Respiratory Rate [Posterior Bilateral Throughout] Blood Pressure 104/70 114/73 114/73 O2 Sat by Pulse 97 100 98 Oximetry 03/19/18 03/19/18 03/19/18 01:41 01:45 02:00 Temperature Pulse Rate 110 H 122 H 121 H Pulse Rate [ Bilateral Throughout] Pulse Rate [ Posterior Bilateral Throughout] Respiratory 26 H 28 H 29 H Rate Respiratory Rate [Bilateral Throughout] Respiratory Rate [Posterior Bilateral Throughout] Blood Pressure 108/69 112/75 112/75 O2 Sat by Pulse 97 97 99 Oximetry 03/19/18 03/19/18 03/19/18 02:10 02:16 02:21 Temperature Pulse Rate 134 H Pulse Rate [ 117 H 115 H Bilateral Throughout] Pulse Rate [ Posterior Bilateral Throughout] Respiratory 35 H Rate Respiratory 21 24 Rate [Bilateral Throughout] Respiratory Rate [Posterior Bilateral Throughout] Blood Pressure 126/69 O2 Sat by Pulse 98 Oximetry 03/19/18 03/19/18 03/19/18 02:30 02:45 03:00 Temperature Pulse Rate 121 H 111 H 114 H Pulse Rate [ Bilateral Throughout] Pulse Rate [ Posterior Bilateral Throughout] Respiratory 29 H 24 26 H Rate Respiratory Rate [Bilateral Throughout] Respiratory Rate [Posterior Bilateral Throughout] Blood Pressure 126/69 103/68 101/65 O2 Sat by Pulse 99 99 98 Oximetry 03/19/18 03/19/18 03/19/18 03:15 03:27 03:30 Temperature 98.3 F Pulse Rate 104 H 119 H Pulse Rate [ Bilateral Throughout] Pulse Rate [ Posterior Bilateral Throughout] Respiratory 25 H 26 H Rate Respiratory Rate [Bilateral Throughout] Respiratory Rate [Posterior Bilateral Throughout] Blood Pressure 95/61 93/62 O2 Sat by Pulse 98 99 Oximetry 03/19/18 03/19/18 03/19/18 03:45 04:00 04:15 Temperature Pulse Rate 115 H 120 H 120 H Pulse Rate [ Bilateral Throughout] Pulse Rate [ Posterior Bilateral Throughout] Respiratory 30 H 29 H 25 H Rate Respiratory Rate [Bilateral Throughout] Respiratory Rate [Posterior Bilateral Throughout] Blood Pressure 112/67 99/63 99/54 O2 Sat by Pulse 99 95 96 Oximetry 03/19/18 03/19/18 03/19/18 04:30 04:45 05:00 Temperature Pulse Rate 124 H 118 H 105 H Pulse Rate [ Bilateral Throughout] Pulse Rate [ Posterior Bilateral Throughout] Respiratory 28 H 25 H 26 H Rate Respiratory Rate [Bilateral Throughout] Respiratory Rate [Posterior Bilateral Throughout] Blood Pressure 99/54 110/62 106/66 O2 Sat by Pulse 97 98 98 Oximetry 03/19/18 03/19/18 03/19/18 05:15 05:30 05:45 Temperature Pulse Rate 107 H 107 H 118 H Pulse Rate [ Bilateral Throughout] Pulse Rate [ Posterior Bilateral Throughout] Respiratory 22 23 25 H Rate Respiratory Rate [Bilateral Throughout] Respiratory Rate [Posterior Bilateral Throughout] Blood Pressure 102/61 105/65 112/73 O2 Sat by Pulse 99 98 99 Oximetry 03/19/18 03/19/18 03/19/18 06:00 06:15 06:16 Temperature Pulse Rate 114 H 120 H 119 H Pulse Rate [ Bilateral Throughout] Pulse Rate [ Posterior Bilateral Throughout] Respiratory 25 H 26 H 27 H Rate Respiratory Rate [Bilateral Throughout] Respiratory Rate [Posterior Bilateral Throughout] Blood Pressure 116/71 98/60 91/60 O2 Sat by Pulse 99 98 98 Oximetry 03/19/18 03/19/18 03/19/18 06:30 06:45 07:00 Temperature Pulse Rate 103 H 111 H 103 H Pulse Rate [ Bilateral Throughout] Pulse Rate [ Posterior Bilateral Throughout] Respiratory 24 24 25 H Rate Respiratory Rate [Bilateral Throughout] Respiratory Rate [Posterior Bilateral Throughout] Blood Pressure 91/60 98/77 108/79 O2 Sat by Pulse 99 98 98 Oximetry 03/19/18 03/19/18 03/19/18 07:15 07:30 07:45 Temperature Pulse Rate 113 H 114 H 113 H Pulse Rate [ Bilateral Throughout] Pulse Rate [ Posterior Bilateral Throughout] Respiratory 24 24 20 Rate Respiratory Rate [Bilateral Throughout] Respiratory Rate [Posterior Bilateral Throughout] Blood Pressure 106/65 113/80 106/69 O2 Sat by Pulse 97 98 99 Oximetry Constitutional: no acute distress Eyes: non-icteric ENT: oropharynx moist, other (ETT in position) Neck: supple, JVD Ascultation: Bilateral: clear, rhonchi (sporadic) Cardiovascular: irregular rhythm Gastrointestinal: normoactive bowel sounds, non-distended Integumentary: normal Extremities: no cyanosis Neurologic: normal mental status, non-focal exam, pupils equal and round, CN II- XII normal CBC and BMP: 03/19/18 04:16 03/19/18 04:16 ABG, PT/INR, D-dimer: ABG POC ABG pH 7.441 (7.35-7.45) 03/19/18 06:05 POC ABG pCO2 31.0 (35-45) L 03/19/18 06:05 POC ABG pO2 73 (80-105) L 03/19/18 06:05 POC ABG HCO3 21.1 03/19/18 06:05 POC ABG Total CO2 22 03/19/18 06:05 POC ABG O2 Sat 95 03/19/18 06:05 PT/INR, D-dimer PT 15.2 Sec. (12.2-14.9) H 03/15/18 19:47 INR 1.16 (0.87-1.13) H 03/15/18 19:47 D-Dimer 1826.96 ng/mlDDU (0-234) H 03/15/18 19:47 Abnormal lab findings: Abnormal Labs 03/15/18 03/15/18 03/15/18 19:47 19:47 19:47 WBC RDW 15.6 H [place] % (Auto) 8.2 H [place] # Seg Neutrophils % Seg Neutrophils # PT 15.2 H INR 1.16 H D-Dimer 1826.96 H Heparin Anti-Xa Level POC ABG pH POC ABG pCO2 POC ABG pO2 Sodium Potassium Carbon Dioxide 21 L BUN Glucose 124 H POC Glucose Calcium Total Creatine Kinase CK-MB (CK-2) C-Reactive Protein NT-Pro-B Natriuret Pep Total Protein 6.2 L Albumin 3.7 L Free T4 03/15/18 03/16/18 03/16/18 19:47 02:17 05:29 WBC RDW [place] % (Auto) [place] # Seg Neutrophils % Seg Neutrophils # PT INR D-Dimer Heparin Anti-Xa Level POC ABG pH POC ABG pCO2 30.6 L POC ABG pO2 52 L Sodium Potassium Carbon Dioxide BUN Glucose POC Glucose Calcium Total Creatine Kinase 232 H CK-MB (CK-2) 4.9 H C-Reactive Protein NT-Pro-B Natriuret Pep 2498 H Total Protein Albumin Free T4 03/16/18 03/16/18 03/16/18 05:57 14:38 14:38 WBC RDW [place] % (Auto) [place] # Seg Neutrophils % Seg Neutrophils # PT INR D-Dimer Heparin Anti-Xa Level POC ABG pH 7.232 L POC ABG pCO2 45.1 H POC ABG pO2 Sodium Potassium Carbon Dioxide BUN Glucose POC Glucose Calcium Total Creatine Kinase 402 H CK-MB (CK-2) 6.4 H C-Reactive Protein NT-Pro-B Natriuret Pep Total Protein Albumin Free T4 1.67 H 03/16/18 03/17/18 03/17/18 23:25 03:27 17:22 WBC RDW [place] % (Auto) [place] # Seg Neutrophils % Seg Neutrophils # PT INR D-Dimer Heparin Anti-Xa Level POC ABG pH 7.568 H POC ABG pCO2 23.4 L POC ABG pO2 78 L Sodium Potassium Carbon Dioxide BUN Glucose POC Glucose 184 H Calcium Total Creatine Kinase CK-MB (CK-2) C-Reactive Protein 2.90 H NT-Pro-B Natriuret Pep Total Protein Albumin Free T4 03/18/18 03/19/18 03/19/18 05:28 04:16 04:16 WBC 18.3 H RDW 16.3 H [place] % (Auto) 8.9 H [place] # 1.6 H Seg Neutrophils % 74.3 H Seg Neutrophils # 13.6 H PT INR D-Dimer Heparin Anti-Xa Level POC ABG pH POC ABG pCO2 33.3 L POC ABG pO2 Sodium 135 L Potassium 5.3 H D Carbon Dioxide 20 L BUN 21 H Glucose 139 H POC Glucose Calcium 8.2 L Total Creatine Kinase CK-MB (CK-2) C-Reactive Protein NT-Pro-B Natriuret Pep Total Protein Albumin Free T4 03/19/18 03/19/18 04:16 06:05 WBC RDW [place] % (Auto) [place] # Seg Neutrophils % Seg Neutrophils # PT INR D-Dimer Heparin Anti-Xa Level 0.28 L POC ABG pH POC ABG pCO2 31.0 L POC ABG pO2 73 L Sodium Potassium Carbon Dioxide BUN Glucose POC Glucose Calcium Total Creatine Kinase CK-MB (CK-2) C-Reactive Protein NT-Pro-B Natriuret Pep Total Protein Albumin Free T4
--- NOTE | 2018-03-19 09:57 | Progress Note ---
Assessment and Plan Acute on chronic respiratory failure - Atrial fibrillation with RVR - apparently new diagnosis Acute HFpEF - CXR with mild pulmonary edema; pro-BNP 2498 Large pericardial effusion no tamponade Severe MR Mitral valve vegetation ? PNA / ? 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 Pulmonary HTN - RVSP 51mmHg rec: wean off amio and start po dig and start oral amio in am , poor prognosis, discussed with pt daughter, hold lasix in view of low bp Subjective Date of service: 03/19/18 Principal diagnosis: AFib; HF; respiratory failure; pericardial effusion Interval history: pt on bipap and self extubated Objective Vital Signs Temp Pulse Pulse Pulse Pulse Resp Resp 03/19/18 07:45 113 H 20 03/19/18 07:30 114 H 24 03/19/18 07:15 113 H 24 03/19/18 07:00 103 H 25 H 03/19/18 06:45 111 H 24 03/19/18 06:30 103 H 24 03/19/18 06:16 119 H 27 H 03/19/18 06:15 120 H 26 H 03/19/18 06:00 114 H 25 H 03/19/18 05:45 118 H 25 H 03/19/18 05:30 107 H 23 03/19/18 05:15 107 H 22 03/19/18 05:00 105 H 26 H 03/19/18 04:45 118 H 25 H 03/19/18 04:30 124 H 28 H 03/19/18 04:15 120 H 25 H 03/19/18 04:00 120 H 29 H 03/19/18 03:45 115 H 30 H 03/19/18 03:30 119 H 26 H 03/19/18 03:27 98.3 F 03/19/18 03:15 104 H 25 H 03/19/18 03:00 114 H 26 H 03/19/18 02:45 111 H 24 03/19/18 02:30 121 H 29 H 03/19/18 02:21 115 H 24 03/19/18 02:16 134 H 35 H 03/19/18 02:10 117 H 21 03/19/18 02:00 121 H 29 H 03/19/18 01:45 122 H 28 H 03/19/18 01:41 110 H 26 H 03/19/18 01:30 118 H 25 H 03/19/18 01:16 117 H 28 H 03/19/18 01:00 119 H 24 03/19/18 00:46 113 H 23 03/19/18 00:30 117 H 22 03/19/18 00:16 111 H 24 03/19/18 00:00 109 H 24 03/18/18 23:45 105 H 20 03/18/18 23:44 108 H 03/18/18 23:32 99.5 F 03/18/18 23:30 105 H 20 03/18/18 23:18 98 H 20 03/18/18 23:15 107 H 20 03/18/18 23:00 111 H 20 03/18/18 22:45 105 H 23 03/18/18 22:30 106 H 20 03/18/18 22:15 113 H 21 03/18/18 22:00 107 H 21 03/18/18 21:45 108 H 20 03/18/18 21:30 98 H 23 03/18/18 21:15 108 H 20 03/18/18 21:05 106 H 03/18/18 21:00 107 H 21 03/18/18 20:45 105 H 23 03/18/18 20:30 113 H 23 03/18/18 20:15 107 H 22 03/18/18 20:00 123 H 26 H 03/18/18 19:45 99.2 F 112 H 23 03/18/18 19:30 113 H 27 H 03/18/18 19:15 105 H 18 03/18/18 19:00 130 H 28 H 03/18/18 18:46 119 H 19 03/18/18 18:31 107 H 03/18/18 18:30 119 H 22 03/18/18 18:15 118 H 21 03/18/18 18:00 105 H 24 03/18/18 17:45 105 H 18 03/18/18 17:30 104 H 27 H 03/18/18 17:16 121 H 17 03/18/18 17:00 100 H 20 03/18/18 16:45 114 H 25 H 03/18/18 16:30 100 H 23 03/18/18 16:15 107 H 22 03/18/18 16:00 97.8 F 107 H 23 03/18/18 15:45 111 H 23 03/18/18 15:30 110 H 22 03/18/18 15:15 108 H 20 03/18/18 15:00 113 H 20 03/18/18 14:45 113 H 23 03/18/18 14:30 119 H 23 03/18/18 14:15 105 H 22 03/18/18 14:00 107 H 22 03/18/18 13:45 109 H 21 03/18/18 13:39 94 H 96 H 20 03/18/18 13:30 98 H 22 03/18/18 13:15 127 H 23 03/18/18 13:00 128 H 23 03/18/18 12:45 119 H 24 03/18/18 12:30 116 H 27 H 03/18/18 12:16 125 H 28 H 03/18/18 12:00 97.5 F L 125 H 110 H 32 H 03/18/18 11:45 118 H 21 03/18/18 11:30 107 H 22 03/18/18 11:15 125 H 24 03/18/18 11:00 107 H 22 03/18/18 10:45 115 H 22 03/18/18 10:30 134 H 21 03/18/18 10:15 111 H 20 03/18/18 10:00 108 H 24 Resp BP Pulse Ox 03/19/18 07:45 106/69 99 03/19/18 07:30 113/80 98 03/19/18 07:15 106/65 97 03/19/18 07:00 108/79 98 03/19/18 06:45 98/77 98 03/19/18 06:30 91/60 99 03/19/18 06:16 91/60 98 03/19/18 06:15 98/60 98 03/19/18 06:00 116/71 99 03/19/18 05:45 112/73 99 03/19/18 05:30 105/65 98 03/19/18 05:15 102/61 99 03/19/18 05:00 106/66 98 03/19/18 04:45 110/62 98 03/19/18 04:30 99/54 97 03/19/18 04:15 99/54 96 03/19/18 04:00 99/63 95 03/19/18 03:45 112/67 99 03/19/18 03:30 93/62 99 03/19/18 03:27 03/19/18 03:15 95/61 98 03/19/18 03:00 101/65 98 03/19/18 02:45 103/68 99 03/19/18 02:30 126/69 99 03/19/18 02:21 03/19/18 02:16 126/69 98 03/19/18 02:10 03/19/18 02:00 112/75 99 03/19/18 01:45 112/75 97 03/19/18 01:41 108/69 97 03/19/18 01:30 114/73 98 03/19/18 01:16 114/73 100 03/19/18 01:00 104/70 97 03/19/18 00:46 102/68 97 03/19/18 00:30 102/68 100 03/19/18 00:16 94/64 100 03/19/18 00:00 97/65 100 03/18/18 23:45 97/65 100 03/18/18 23:44 97/65 100 03/18/18 23:32 03/18/18 23:30 105/69 100 03/18/18 23:18 97/70 100 03/18/18 23:15 97/70 100 03/18/18 23:00 95/69 100 03/18/18 22:45 94/68 100 03/18/18 22:30 93/67 100 03/18/18 22:15 103/72 100 03/18/18 22:00 109/66 100 03/18/18 21:45 92/67 100 03/18/18 21:30 101/66 100 03/18/18 21:15 106/70 100 03/18/18 21:05 22 03/18/18 21:00 104/64 99 03/18/18 20:45 107/68 99 03/18/18 20:30 109/75 99 03/18/18 20:15 99/72 99 03/18/18 20:00 109/79 99 03/18/18 19:45 107/81 98 03/18/18 19:30 88/65 99 03/18/18 19:15 99/81 100 03/18/18 19:00 88/65 100 03/18/18 18:46 88/65 100 03/18/18 18:31 100/72 03/18/18 18:30 100/72 99 03/18/18 18:15 104/72 100 03/18/18 18:00 97/69 100 03/18/18 17:45 101/71 98 03/18/18 17:30 77/55 100 03/18/18 17:16 89/60 100 03/18/18 17:00 89/60 100 03/18/18 16:45 96/69 100 03/18/18 16:30 89/59 98 03/18/18 16:15 94/63 98 03/18/18 16:00 95/66 99 03/18/18 15:45 91/68 99 03/18/18 15:30 94/71 99 03/18/18 15:15 88/62 100 03/18/18 15:00 93/62 99 03/18/18 14:45 94/63 98 03/18/18 14:30 90/62 99 03/18/18 14:15 95/61 99 03/18/18 14:00 91/63 100 03/18/18 13:45 89/65 100 03/18/18 13:39 22 03/18/18 13:30 92/67 99 03/18/18 13:15 92/70 100 03/18/18 13:00 93/72 100 03/18/18 12:45 97/64 100 03/18/18 12:30 94/67 100 03/18/18 12:16 94/67 100 03/18/18 12:00 94/67 100 03/18/18 11:45 93/65 99 03/18/18 11:30 95/60 98 03/18/18 11:15 98/66 98 03/18/18 11:00 93/64 97 03/18/18 10:45 100/70 97 03/18/18 10:30 96/65 100 03/18/18 10:15 96/65 100 03/18/18 10:00 89/69 99 - Physical Examination General: Other (on bipap) HEENT: Positive: EOMI Neck: Positive: neck supple Cardiac: Positive: Irregularly Regular Lungs: Positive: Decreased Breath Sounds Neuro: Positive: Other (awake) Abdomen: Positive: Soft Skin: Negative: Rash Musculoskeletal: No Pain Extremities: Absent: edema - Labs and Meds Lipids 03/19/18 Range/Units 04:16 Triglycerides 116 (2-149) mg/dL CBC 03/19/18 Range/Units 04:16 WBC 18.3 H (4.5-11.0) K/mm3 RBC 4.06 (3.65-5.03) M/mm3 Hgb 11.7 (10.1-14.3) gm/dl Hct 36.4 (30.3-42.9) % Plt Count 239 (140-440) K/mm3 Lymph # 3.0 (1.2-5.4) K/mm3 Lares # 1.6 H (0.0-0.8) K/mm3 Eos # 0.0 (0.0-0.4) K/mm3 Baso # 0.1 (0.0-0.1) K/mm3 Comprehensive Metabolic Panel 03/19/18 Range/Units 04:16 Sodium 135 L (137-145) mmol/L Potassium 5.3 H D (3.6-5.0) mmol/L Chloride 98.9 (98-107) mmol/L Carbon Dioxide 20 L (22-30) mmol/L BUN 21 H (7-17) mg/dL Creatinine 0.7 (0.7-1.2) mg/dL Glucose 139 H (65-100) mg/dL Calcium 8.2 L (8.4-10.2) mg/dL - Imaging and Cardiology EKG: report reviewed, image reviewed Echo: report reviewed (03/2018: EF 45-50%, LA severely dilated, severe MR, mod TR, mod pulm HTN with RVSP 51mmHg, large pericardial effusion seen adjacent to RV, no tamponade, mitral valve vegitation. 10/2017 showed EF 50-55%, restrictive diastolic filling, LA severely dilated, severe MR, prolapse of anterior leaflet of mitral valve, mild TR, RVSP 41mmHg, large pericardial effusion, no evidence of tamponade. ) Cardiac cath: report reviewed ( 08/2016 showed normal coronaries, severe MR, dilated LV and markedly dilated LA, EF around 45-50%. ) - Telemetry EKG Rhythm: Atrial Fibrillation
[2018-03-19] MEDS: ROCEPHIN/NS 2 GM/100 ML 2 GM/100 ML BAG IV SCH (10:12)
[2018-03-19] MEDS: BABY ASPIRIN PO SCH (10:13)
[2018-03-19] MEDS: TAMIFLU PO SCH ×2 (10:13→23:02)
[2018-03-19] MEDS: PEPCID PO SCH ×2 (10:14→23:02)
[2018-03-19] MEDS: DELTASONE PO SCH (10:22)
[2018-03-19] MEDS: LANOXIN IV SCH ×3 (10:23→23:02)
[2018-03-19] MEDS: ZITHROMAX 500 MG in NACL 0.9% 250ML 250 ML IV SCH (10:30)
--- NOTE | 2018-03-19 11:38 | Progress Note ---
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 DDx. Bacterial endocarditis vs mar[place] endocarditis. Per patient and family, no known animal e xposure to suggest bartonella, coxiella, etc. - TTE showed EF 45-50%, LA severely dilated, severe MR, mod TR, mod pulm HTN with RVSP 51mmHg, large pericardial effusion seen adjacent to RV, no tamponade, questionable MV vegetation. - CRP=2.9 3) Presumed pneumonia vs CHF: patient came to the ED on 02/27/18 found to have pneumonia sent home on levaquin. ?influenza vs ?post influenza pneumonia - CTA showed large pericardial effusion, cardiomegaly, groundglass changes bilateral lungs c/w pulmonary edema, moderate to large right pleural effusion. - rapid influenza neg - very likely CHF. 4) Large pericardial effusion and right pleural effusion: per cards 5) COPD Recommendations: - discontinuing antibiotics after tomorrow - clinically, low suspicion for an acute or subacute bacterial endocarditis - patient has severe MR, a definitive diagnosis can be made if and when a patient undergoes valve surgery with the help of histopath and direct valve cultures - guarded prognosis MD [facility] C: [phone] O: [phone] F: [phone] Subjective Date of service: 03/19/18 Principal diagnosis: AFib; HF; respiratory failure; pericardial effusion Interval history: Self extubated, now on high flow. No fever. Feeling SOB but a little better. Objective - Exam Narrative Exam: Physical Exam: Constitutional: Alert, cooperative. Moderate resp. distress, on high flow O2. Head, Ears, Nose: Normocephalic, atraumatic. External ears, nose normal Eyes: Conjunctivae/corneas clear. No icterus. No ptosis. Neck: Supple, no meningeal signs Oral: mucosa moist, no ulcers Cardiovascular: S1, S2 normal, systolic murmur Respiratory: clear to auscultation bilaterally, AE reduced in the bases. GI: Soft, non-tender; bowel sounds normal. No peritoneal signs Musculoskeletal: No pedal edema, no cyanosis. Skin: No rash or abscess Hem/Lymphatic: No palpable cervical or supraclavicular nodes. No lymphangitis Psych: Mood ok. Affect normal Neurological: Awake, alert, oriented. No gross abnormality - Constitutional Vitals: Vital Signs Temp Pulse Resp BP Pulse Ox 98.3 F 123 H 23 111/71 99 03/19/18 03:27 03/19/18 10:23 03/19/18 09:58 03/19/18 10:23 03/19/18 09:53 Temperature -Last 24 Hours Temperature 98.3 F Temperature 99.5 F Temperature 99.2 F Temperature 97.8 F Temperature 97.5 F - Labs CBC & Chem 7: 03/19/18 04:16 03/19/18 04:16 Labs: Abnormal lab results 03/19/18 03/19/18 03/19/18 Range/Units 04:16 04:16 04:16 WBC 18.3 H (4.5-11.0) K/mm3 RDW 16.3 H (13.2-15.2) % [place] % (Auto) 8.9 H (0.0-7.3) % [place] # 1.6 H (0.0-0.8) K/mm3 Seg Neutrophils % 74.3 H (40.0-70.0) % Seg Neutrophils # 13.6 H (1.8-7.7) K/mm3 Heparin Anti-Xa Level 0.28 L (0.3-0.7) U.I./ml POC ABG pCO2 (35-45) POC ABG pO2 (80-105) Sodium 135 L (137-145) mmol/L Potassium 5.3 H D (3.6-5.0) mmol/L Carbon Dioxide 20 L (22-30) mmol/L BUN 21 H (7-17) mg/dL Glucose 139 H (65-100) mg/dL Calcium 8.2 L (8.4-10.2) mg/dL 03/19/18 Range/Units 06:05 WBC (4.5-11.0) K/mm3 RDW (13.2-15.2) % [place] % (Auto) (0.0-7.3) % [place] # (0.0-0.8) K/mm3 Seg Neutrophils % (40.0-70.0) % Seg Neutrophils # (1.8-7.7) K/mm3 Heparin Anti-Xa Level (0.3-0.7) U.I./ml POC ABG pCO2 31.0 L (35-45) POC ABG pO2 73 L (80-105) Sodium (137-145) mmol/L Potassium (3.6-5.0) mmol/L Carbon Dioxide (22-30) mmol/L BUN (7-17) mg/dL Glucose (65-100) mg/dL Calcium (8.4-10.2) mg/dL
--- NOTE | 2018-03-19 13:12 | Progress Note ---
Assessment and Plan Assessment and plan: Acute on chronic hypoxemic respiratory failure. Etiology is multifactorial secondary to pulmonary HTN, CHF, pericardial effusion/pleural effusion,?pneumonia. Patient is now extubated and doing fairly well. Continue O2 to maintain sats. Atrial fibrillation with RVR. Echocardiogram completed on this hospitalization revealed EF 45-50%, LA severely dilated, severe MR, mod TR, mod pulm HTN with RVSP 51mmHg, large pericardial effusion seen adjacent to RV, no tamponade, questionable vegitation. I discussed with Dr. Campbell that Pt is high risk for cardiac tamponade, d/c scheduled IV lasix and cont PRN diuresis as BPs permit, monitor VS closely. Continue heparin drip and consider conversion to oral anticoagulation at discharge. Continue IV amiodarone for rate control. 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 Blood cultures thus far negative. Follow-up pro- calcitonin. Consider ABBI for further evaluation. Presumed pneumonia. ? Post influenza pneumonia. Continue Tamiflu vancomycin and Rocephin and azithromycin. Follow-up influenza PCR. Follow-up MRSA screening PCR. ID following Acute HFpEF. On admission, CXR with mild pulmonary edema; pro-BNP 2498 Large Pericardial effusion. Per cardiology. COPD. continue breathing treatments. IV steroids for pulmonary. Subcutaneous air in the neck. Etiology likely secondary to intubation. Consult surgery if worsens. H/o tobacco use Normal coronary arteries Severe MR H/o prolapse of anterior leaflet of mitral valve The high probability of a clinically significant, sudden or life threatening deterioration of the [cardiac and respiratory] system(s) required my full and direct attention, intervention and personal management. The aggregate critical care time was [33] minutes. This time is in addition to time spent performing reported procedures but includes the following: [x] Data Review and interpretation [x] Patient assessment and monitoring of vital signs [x] Documentation [x] Medication orders and management History Interval history: 57 y/o female with history of COPD on home O2, heavy tobacco use, large pericardial effusion, normal coronary arteries, severe MR; admitted on 03/15/18 due to 2-day history of progressive shortness of breath. The patient was intubated and sedated and remained on mechanical ventilation. However, patient self extubated and doing well today. Hospitalist Physical - Constitutional Vitals: Temp Pulse Resp BP Pulse Ox 98.3 F 123 H 23 111/71 99 03/19/18 03:27 03/19/18 10:23 03/19/18 09:58 03/19/18 10:23 03/19/18 09:53 General appearance: Present: mild distress, other (intubated, sedated) - EENT Eyes: Present: PERRL, EOM intact ENT: hearing intact, clear oral mucosa, dentition normal - Neck Neck: Present: supple, normal ROM - Respiratory Respiratory effort: normal Respiratory: bilateral: diminished, rhonchi - Cardiovascular Rhythm: regular Heart Sounds: Present: S1 & S2. Absent: gallop, rub - Extremities Extremities: no ischemia, No edema, Full ROM - Abdominal General gastrointestinal: soft, non-tender, non-distended, normal bowel sounds - Integumentary Integumentary: Present: clear, warm, dry - Neurologic Neurologic: CNII-XII intact, moves all extremities Results - Labs CBC & Chem 7: 03/19/18 04:16 03/19/18 04:16 Labs: Laboratory Last Values WBC 18.3 K/mm3 (4.5-11.0) H 03/19/18 04:16 RBC 4.06 M/mm3 (3.65-5.03) 03/19/18 04:16 Hgb 11.7 gm/dl (10.1-14.3) 03/19/18 04:16 Hct 36.4 % (30.3-42.9) 03/19/18 04:16 MCV 90 fl (79-97) 03/19/18 04:16 MCH 29 pg (28-32) 03/19/18 04:16 MCHC 32 % (30-34) 03/19/18 04:16 RDW 16.3 % (13.2-15.2) H 03/19/18 04:16 Plt Count 239 K/mm3 (140-440) 03/19/18 04:16 Lymph % (Auto) 16.4 % (13.4-35.0) 03/19/18 04:16 [place] % (Auto) 8.9 % (0.0-7.3) H 03/19/18 04:16 Eos % (Auto) 0.1 % (0.0-4.3) 03/19/18 04:16 Baso % (Auto) 0.3 % (0.0-1.8) 03/19/18 04:16 Lymph # 3.0 K/mm3 (1.2-5.4) 03/19/18 04:16 [place] # 1.6 K/mm3 (0.0-0.8) H 03/19/18 04:16 Eos # 0.0 K/mm3 (0.0-0.4) 03/19/18 04:16 Baso # 0.1 K/mm3 (0.0-0.1) 03/19/18 04:16 Seg Neutrophils % 74.3 % (40.0-70.0) H 03/19/18 04:16 Seg Neutrophils # 13.6 K/mm3 (1.8-7.7) H 03/19/18 04:16 ESR 17 mm/Hr (0-20) 03/17/18 12:28 PT 15.2 Sec. (12.2-14.9) H 03/15/18 19:47 INR 1.16 (0.87-1.13) H 03/15/18 19:47 APTT 28.4 Sec. (24.2-36.6) 03/15/18 19:47 D-Dimer 1826.96 ng/mlDDU (0-234) H 03/15/18 19:47 Heparin Anti-Xa Level 0.28 U.I./ml (0.3-0.7) L 03/19/18 04:16 POC ABG pH 7.441 (7.35-7.45) 03/19/18 06:05 POC ABG pCO2 31.0 (35-45) L 03/19/18 06:05 POC ABG pO2 73 (80-105) L 03/19/18 06:05 POC ABG HCO3 21.1 03/19/18 06:05 POC ABG Total CO2 22 03/19/18 06:05 POC ABG O2 Sat 95 03/19/18 06:05 POC ABG Base Excess -3 03/19/18 06:05 FiO2 40 % 03/19/18 06:05 Sodium 135 mmol/L (137-145) L 03/19/18 04:16 Potassium 5.3 mmol/L (3.6-5.0) H D 03/19/18 04:16 Chloride 98.9 mmol/L (98-107) 03/19/18 04:16 Carbon Dioxide 20 mmol/L (22-30) L 03/19/18 04:16 Anion Gap 21 mmol/L 03/19/18 04:16 BUN 21 mg/dL (7-17) H 03/19/18 04:16 Creatinine 0.7 mg/dL (0.7-1.2) 03/19/18 04:16 Estimated GFR > 60 ml/min 03/19/18 04:16 BUN/Creatinine Ratio 30 % 03/19/18 04:16 Glucose 139 mg/dL (65-100) H 03/19/18 04:16 POC Glucose 184 (70-105) H 03/16/18 23:25 Calcium 8.2 mg/dL (8.4-10.2) L 03/19/18 04:16 Magnesium 1.80 mg/dL (1.7-2.3) 03/16/18 14:38 Total Bilirubin 1.20 mg/dL (0.1-1.2) 03/15/18 19:47 AST 31 units/L (5-40) 03/15/18 19:47 ALT 51 units/L (7-56) 03/15/18 19:47 Alkaline Phosphatase 80 units/L (35-129) 03/15/18 19:47 Total Creatine Kinase 402 units/L (30-135) H 03/16/18 14:38 CK-MB (CK-2) 6.4 ng/mL (0.0-4.0) H 03/16/18 14:38 CK-MB (CK-2) Rel Index 1.5 (0-4) 03/16/18 14:38 Troponin T < 0.010 ng/mL (0.00-0.029) 03/16/18 14:38 C-Reactive Protein 2.90 mg/dL (0.00-1.30) H 03/17/18 17:22 NT-Pro-B Natriuret Pep 2498 pg/mL (0-900) H 03/15/18 19:47 Total Protein 6.2 g/dL (6.3-8.2) L 03/15/18 19:47 Albumin 3.7 g/dL (3.9-5) L 03/15/18 19:47 Albumin/Globulin Ratio 1.5 % 03/15/18 19:47 Triglycerides 116 mg/dL (2-149) 03/19/18 04:16 TSH 0.500 mlU/mL (0.270-4.200) 03/16/18 14:38 Free T4 1.67 ng/dL (0.76-1.46) H 03/16/18 14:38 Influenza A (Rapid) Negative (Negative) 03/17/18 20:15 Influenza B (Rapid) Negative (Negative) 03/17/18 20:15 Nutrition/Malnutrition Assess - Dietary Evaluation Nutrition/Malnutrition Findings: Nutrition Notes Start: 03/16/18 11:39 Freq: Status: Active Protocol: Document 03/18/18 11:53 KH (Rec: 03/18/18 12:10 [email or web address]) Co-Sign 03/18/18 11:53 OL Nutrition Notes Initial or Follow up Reassessment Current Diagnosis COPD Heart Failure Current Diet Vital AF at 50ml/hr Labs/Tests Reviewed Pertinent Medications Propofol at 3.594 ml/hr (95 kcals), Height 5 ft 3 in Weight 62.8 kg Anita Body Weight (lbs) 115.0 BMI 24.5 Weight Status Appropriate Subjective/Other Information Observed TF running at goal rate of 50 ml/hr. Pt tolerating TF per pt. nurse. Percent of energy/protein needs met: 100%/100% Burn Absent Trauma Absent Current % PO NEGLIGIBLE #2 Nutrition Diagnosis Inadequate oral intake Etiology On vent As Evidenced by Signs and Symptoms Need for TF #1 Nutrition Diagnosis Predicted suboptimal energy intake Diagnosis Progress(for reassessment Resolved documentation) Is patient on ventilator? Yes Is Patient Ambulatory and/or Out of Bed No REE-([facility]-confined to bed) [phone] Calculation Used for Recommendations [facility] Additional Notes Pro: 1.2-2 g/Kg BW (75g-126g/ day) Fluid: 1ml/kcal or per MD Nutrition Intervention Change Diet Order: Continue TF Nutrition Support: Vital AF 1.2 at 50ml/hr. Water flush of 80ml q4h. Kcal 1,487 Protein (gm) 90 Fluid (mL) 1,453 Goal #1 TF tolerance Anticipated Discharge Needs: Unknown at this time Follow-Up By: 03/25/18 Additional Comments F/U: TF tolerance
[2018-03-19] MEDS: CORDARONE 900 MG in D5W 482 ML IV SCH (13:25)
[2018-03-20] MEDS: DUONEB *Not for PRN Use IH SCH ×4 (01:44→19:34)
[2018-03-20] MEDS: HEPARIN/ 0.45% NACL-25,000 UNIT/500 ML 25,000 UNIT/500 ML BAG IV SCH (02:51)
[2018-03-20] MEDS: ATIVAN IV PRN ×2 (03:06→16:55)
--- NOTE | 2018-03-20 06:02 | XRay Report ---
FINAL REPORT EXAM: XR CHEST 1V AP HISTORY: follow up respiratory failure TECHNIQUE: AP portable view(s) of the chest obtained. PRIORS: 03/18/2018, CT 03/16/2018 FINDINGS: Removal of patient's endotracheal and enteric tubes. No mediastinal shift. Cardiac silhouette is unch anged. Ill-defined bibasilar opacities and blunting of the costophrenic angles. No pneumothorax or ac krystyna skeletal finding. IMPRESSION: No pneumothorax status post removal of endotracheal and enteric tubes. Bilateral effusions and atelec tasis remain. Enlarged cardiac silhouette is unchanged.
[2018-03-20] MEDS: VANCOMYCIN/NS 1 GM/250 ML 1 GM/250 ML BAG IV SCH ×2 (06:37→18:57)
[2018-03-20] MEDS: NITRO-BID 2% TP SCH ×4 (06:38→18:58)
[2018-03-20] MEDS: ROCEPHIN/NS 2 GM/100 ML 2 GM/100 ML BAG IV SCH (10:19)
[2018-03-20] MEDS: DELTASONE PO SCH (10:20)
[2018-03-20] MEDS: ZITHROMAX 500 MG in NACL 0.9% 250ML 250 ML IV SCH (10:20)
[2018-03-20] MEDS: BABY ASPIRIN PO SCH (10:20)
[2018-03-20] MEDS: PEPCID PO SCH ×2 (10:20→22:54)
[2018-03-20] MEDS: TAMIFLU PO SCH ×2 (10:21→22:54)
--- NOTE | 2018-03-20 11:47 | Progress Note ---
Assessment and Plan - Patient Problems (1) COPD (chronic obstructive pulmonary disease) with acute bronchitis Current Visit: Yes Status: Acute (2) Acute chest pain Current Visit: Yes Status: Acute (3) Atrial fibrillation with rapid ventricular response Current Visit: Yes Status: Acute (4) CHF (congestive heart failure) Current Visit: Yes Status: Acute Qualifiers: Heart failure type: unspecified Heart failure chronicity: acute on chronic Qualified Code(s): I50.9 - Heart failure, unspecified (5) Acute respiratory failure Current Visit: No Status: Acute (6) Pericardial effusion Current Visit: No Status: Acute (7) Pneumonia Current Visit: No Status: Acute (8) Tobacco abuse Current Visit: No Status: Acute (9) Acute and chronic respiratory failure ([id number]) Current Visit: Yes Status: Acute Subjective Principal diagnosis: AFib; HF; respiratory failure; pericardial effusion Interval history: feels better Objective Vital Signs - 12hr 03/19/18 03/20/18 03/20/18 23:51 00:00 00:16 Temperature 98.8 F Pulse Rate 94 H 94 H Pulse Rate [ Bilateral Throughout] Pulse Rate [ 94 H From Monitor] Respiratory 22 21 Rate Respiratory Rate [Bilateral Throughout] Blood Pressure 112/65 99/62 O2 Sat by Pulse 93 93 Oximetry 03/20/18 03/20/18 03/20/18 00:30 00:45 01:00 Temperature Pulse Rate 88 92 H 104 H Pulse Rate [ Bilateral Throughout] Pulse Rate [ From Monitor] Respiratory 25 H 27 H 30 H Rate Respiratory Rate [Bilateral Throughout] Blood Pressure 105/58 103/70 103/70 O2 Sat by Pulse 94 93 88 Oximetry 03/20/18 03/20/18 03/20/18 01:15 01:30 01:46 Temperature Pulse Rate 92 H 97 H 89 Pulse Rate [ 92 H Bilateral Throughout] Pulse Rate [ From Monitor] Respiratory 20 24 23 Rate Respiratory 21 Rate [Bilateral Throughout] Blood Pressure 108/63 108/63 119/74 O2 Sat by Pulse 92 92 91 Oximetry 03/20/18 03/20/18 03/20/18 02:00 02:15 02:30 Temperature Pulse Rate 89 99 H 88 Pulse Rate [ 95 H Bilateral Throughout] Pulse Rate [ From Monitor] Respiratory 24 19 16 Rate Respiratory 24 Rate [Bilateral Throughout] Blood Pressure 119/74 107/55 104/49 O2 Sat by Pulse 94 94 90 Oximetry 03/20/18 03/20/18 03/20/18 02:46 03:00 03:15 Temperature Pulse Rate 82 101 H 93 H Pulse Rate [ Bilateral Throughout] Pulse Rate [ From Monitor] Respiratory 16 20 25 H Rate Respiratory Rate [Bilateral Throughout] Blood Pressure 117/57 111/61 106/62 O2 Sat by Pulse 91 90 91 Oximetry 03/20/18 03/20/18 03/20/18 03:30 03:35 03:45 Temperature 98.4 F Pulse Rate 92 H 101 H Pulse Rate [ Bilateral Throughout] Pulse Rate [ From Monitor] Respiratory 21 19 Rate Respiratory Rate [Bilateral Throughout] Blood Pressure 104/59 102/60 O2 Sat by Pulse 91 92 Oximetry 03/20/18 03/20/18 03/20/18 04:00 04:15 04:30 Temperature Pulse Rate 83 95 H 92 H Pulse Rate [ Bilateral Throughout] Pulse Rate [ 83 From Monitor] Respiratory 21 21 20 Rate Respiratory Rate [Bilateral Throughout] Blood Pressure 109/58 92/61 96/54 O2 Sat by Pulse 91 91 91 Oximetry 03/20/18 03/20/18 03/20/18 04:45 05:00 05:15 Temperature Pulse Rate 87 94 H 90 Pulse Rate [ Bilateral Throughout] Pulse Rate [ From Monitor] Respiratory 21 20 21 Rate Respiratory Rate [Bilateral Throughout] Blood Pressure 95/54 96/54 93/60 O2 Sat by Pulse 90 90 91 Oximetry 03/20/18 03/20/18 03/20/18 05:30 05:45 06:00 Temperature Pulse Rate 84 92 H 95 H Pulse Rate [ Bilateral Throughout] Pulse Rate [ From Monitor] Respiratory 16 22 19 Rate Respiratory Rate [Bilateral Throughout] Blood Pressure 83/59 95/59 98/54 O2 Sat by Pulse 94 90 91 Oximetry 03/20/18 03/20/18 03/20/18 06:15 06:30 06:38 Temperature Pulse Rate 90 84 80 Pulse Rate [ Bilateral Throughout] Pulse Rate [ From Monitor] Respiratory 18 18 Rate Respiratory Rate [Bilateral Throughout] Blood Pressure 84/54 92/53 92/53 O2 Sat by Pulse 90 91 Oximetry 03/20/18 03/20/18 03/20/18 06:45 07:00 07:15 Temperature Pulse Rate 91 H 91 H 85 Pulse Rate [ Bilateral Throughout] Pulse Rate [ From Monitor] Respiratory 20 18 17 Rate Respiratory Rate [Bilateral Throughout] Blood Pressure 93/60 101/60 93/60 O2 Sat by Pulse 91 91 91 Oximetry 03/20/18 03/20/18 03/20/18 07:30 07:46 08:00 Temperature 98.4 F Pulse Rate 79 87 95 H Pulse Rate [ Bilateral Throughout] Pulse Rate [ From Monitor] Respiratory 20 17 25 H Rate Respiratory Rate [Bilateral Throughout] Blood Pressure 94/60 104/44 104/44 O2 Sat by Pulse 91 91 92 Oximetry 03/20/18 03/20/18 03/20/18 08:15 08:30 08:45 Temperature Pulse Rate 96 H 90 83 Pulse Rate [ Bilateral Throughout] Pulse Rate [ From Monitor] Respiratory 25 H 18 22 Rate Respiratory Rate [Bilateral Throughout] Blood Pressure 110/70 110/70 94/62 O2 Sat by Pulse 93 93 92 Oximetry 03/20/18 03/20/18 03/20/18 09:00 09:15 09:27 Temperature Pulse Rate 87 77 Pulse Rate [ Bilateral Throughout] Pulse Rate [ From Monitor] Respiratory 20 23 Rate Respiratory Rate [Bilateral Throughout] Blood Pressure 110/57 107/60 O2 Sat by Pulse 94 93 94 Oximetry 03/20/18 03/20/18 03/20/18 09:28 09:30 09:45 Temperature Pulse Rate 81 95 H Pulse Rate [ 84 Bilateral Throughout] Pulse Rate [ From Monitor] Respiratory 19 19 Rate Respiratory 18 Rate [Bilateral Throughout] Blood Pressure 101/57 95/56 O2 Sat by Pulse 95 93 Oximetry 03/20/18 03/20/18 03/20/18 09:48 10:00 10:15 Temperature Pulse Rate 89 88 Pulse Rate [ 89 Bilateral Throughout] Pulse Rate [ From Monitor] Respiratory 20 21 Rate Respiratory 18 Rate [Bilateral Throughout] Blood Pressure 94/55 89/56 O2 Sat by Pulse 92 90 Oximetry 03/20/18 03/20/18 03/20/18 10:21 10:30 10:45 Temperature Pulse Rate 85 83 82 Pulse Rate [ Bilateral Throughout] Pulse Rate [ From Monitor] Respiratory 19 18 Rate Respiratory Rate [Bilateral Throughout] Blood Pressure 89/56 89/56 100/53 O2 Sat by Pulse 94 90 Oximetry 03/20/18 11:00 Temperature Pulse Rate 95 H Pulse Rate [ Bilateral Throughout] Pulse Rate [ From Monitor] Respiratory 20 Rate Respiratory Rate [Bilateral Throughout] Blood Pressure 97/58 O2 Sat by Pulse 93 Oximetry Constitutional: no acute distress Eyes: non-icteric ENT: oropharynx moist, other (ETT in position) Neck: supple, JVD Ascultation: Bilateral: diminished breath sounds, rhonchi (sporadic) Cardiovascular: irregular rhythm Gastrointestinal: normoactive bowel sounds, non-distended Integumentary: normal Extremities: no cyanosis Neurologic: normal mental status, non-focal exam, pupils equal and round, CN II- XII normal CBC and BMP: 03/19/18 04:16 03/20/18 12:23 ABG, PT/INR, D-dimer: ABG POC ABG pH 7.441 (7.35-7.45) 03/19/18 06:05 POC ABG pCO2 31.0 (35-45) L 03/19/18 06:05 POC ABG pO2 73 (80-105) L 03/19/18 06:05 POC ABG HCO3 21.1 03/19/18 06:05 POC ABG Total CO2 22 03/19/18 06:05 POC ABG O2 Sat 95 03/19/18 06:05 PT/INR, D-dimer PT 15.2 Sec. (12.2-14.9) H 03/15/18 19:47 INR 1.16 (0.87-1.13) H 03/15/18 19:47 D-Dimer 1826.96 ng/mlDDU (0-234) H 03/15/18 19:47 Abnormal lab findings: Abnormal Labs 03/15/18 03/15/18 03/15/18 19:47 19:47 19:47 WBC RDW 15.6 H [place] % (Auto) 8.2 H [place] # Seg Neutrophils % Seg Neutrophils # PT 15.2 H INR 1.16 H D-Dimer 1826.96 H Heparin Anti-Xa Level POC ABG pH POC ABG pCO2 POC ABG pO2 Sodium Potassium Carbon Dioxide 21 L BUN Glucose 124 H POC Glucose Calcium Total Creatine Kinase CK-MB (CK-2) C-Reactive Protein NT-Pro-B Natriuret Pep Total Protein 6.2 L Albumin 3.7 L Free T4 Vancomycin Trough 03/15/18 03/16/18 03/16/18 19:47 02:17 05:29 WBC RDW [place] % (Auto) [place] # Seg Neutrophils % Seg Neutrophils # PT INR D-Dimer Heparin Anti-Xa Level POC ABG pH POC ABG pCO2 30.6 L POC ABG pO2 52 L Sodium Potassium Carbon Dioxide BUN Glucose POC Glucose Calcium Total Creatine Kinase 232 H CK-MB (CK-2) 4.9 H C-Reactive Protein NT-Pro-B Natriuret Pep 2498 H Total Protein Albumin Free T4 Vancomycin Trough 03/16/18 03/16/18 03/16/18 05:57 14:38 14:38 WBC RDW [place] % (Auto) [place] # Seg Neutrophils % Seg Neutrophils # PT INR D-Dimer Heparin Anti-Xa Level POC ABG pH 7.232 L POC ABG pCO2 45.1 H POC ABG pO2 Sodium Potassium Carbon Dioxide BUN Glucose POC Glucose Calcium Total Creatine Kinase 402 H CK-MB (CK-2) 6.4 H C-Reactive Protein NT-Pro-B Natriuret Pep Total Protein Albumin Free T4 1.67 H Vancomycin Trough 03/16/18 03/17/18 03/17/18 23:25 03:27 17:22 WBC RDW [place] % (Auto) [place] # Seg Neutrophils % Seg Neutrophils # PT INR D-Dimer Heparin Anti-Xa Level POC ABG pH 7.568 H POC ABG pCO2 23.4 L POC ABG pO2 78 L Sodium Potassium Carbon Dioxide BUN Glucose POC Glucose 184 H Calcium Total Creatine Kinase CK-MB (CK-2) C-Reactive Protein 2.90 H NT-Pro-B Natriuret Pep Total Protein Albumin Free T4 Vancomycin Trough 03/18/18 03/19/18 03/19/18 05:28 04:16 04:16 WBC 18.3 H RDW 16.3 H [place] % (Auto) 8.9 H [place] # 1.6 H Seg Neutrophils % 74.3 H Seg Neutrophils # 13.6 H PT INR D-Dimer Heparin Anti-Xa Level POC ABG pH POC ABG pCO2 33.3 L POC ABG pO2 Sodium 135 L Potassium 5.3 H D Carbon Dioxide 20 L BUN 21 H Glucose 139 H POC Glucose Calcium 8.2 L Total Creatine Kinase CK-MB (CK-2) C-Reactive Protein NT-Pro-B Natriuret Pep Total Protein Albumin Free T4 Vancomycin Trough 03/19/18 03/19/18 03/19/18 04:16 06:05 15:18 WBC RDW [place] % (Auto) [place] # Seg Neutrophils % Seg Neutrophils # PT INR D-Dimer Heparin Anti-Xa Level 0.28 L POC ABG pH POC ABG pCO2 31.0 L POC ABG pO2 73 L Sodium Potassium Carbon Dioxide BUN Glucose POC Glucose Calcium Total Creatine Kinase CK-MB (CK-2) C-Reactive Protein NT-Pro-B Natriuret Pep Total Protein Albumin Free T4 Vancomycin Trough 20.4 H 03/20/18 11:42 WBC RDW [place] % (Auto) [place] # Seg Neutrophils % Seg Neutrophils # PT INR D-Dimer Heparin Anti-Xa Level POC ABG pH POC ABG pCO2 POC ABG pO2 Sodium Potassium Carbon Dioxide BUN Glucose POC Glucose 135 H Calcium Total Creatine Kinase CK-MB (CK-2) C-Reactive Protein NT-Pro-B Natriuret Pep Total Protein Albumin Free T4 Vancomycin Trough
[2018-03-20] MEDS: CORDARONE PO SCH ×2 (12:00→22:58)
--- NOTE | 2018-03-20 12:36 | Progress Note ---
Assessment and Plan Acute on chronic respiratory failure - Atrial fibrillation with RVR - apparently new diagnosis Acute HFpEF - CXR with mild pulmonary edema; pro-BNP 2498 Large pericardial effusion no tamponade Severe MR Mitral valve vegetation ? PNA / ? 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 B.P on low side.Continue present rx. Subjective Date of service: 03/20/18 Principal diagnosis: AFib; HF; respiratory failure; pericardial effusion Interval history: Patient is comfortable. Objective Vital Signs Temp Pulse Pulse Pulse Resp Resp BP 03/20/18 11:00 95 H 20 97/58 03/20/18 10:45 82 18 100/53 03/20/18 10:30 83 19 89/56 03/20/18 10:21 85 89/56 03/20/18 10:15 88 21 89/56 03/20/18 10:00 89 20 94/55 03/20/18 09:48 89 18 03/20/18 09:45 95 H 19 95/56 03/20/18 09:30 81 19 101/57 03/20/18 09:28 84 18 03/20/18 09:27 03/20/18 09:15 77 23 107/60 03/20/18 09:00 87 20 110/57 03/20/18 08:45 83 22 94/62 03/20/18 08:30 90 18 110/70 03/20/18 08:15 96 H 25 H 110/70 03/20/18 08:00 98.4 F 95 H 25 H 104/44 03/20/18 07:46 87 17 104/44 03/20/18 07:30 79 20 94/60 03/20/18 07:15 85 17 93/60 03/20/18 07:00 91 H 18 101/60 03/20/18 06:45 91 H 20 93/60 03/20/18 06:38 80 92/53 03/20/18 06:30 84 18 92/53 03/20/18 06:15 90 18 84/54 03/20/18 06:00 95 H 19 98/54 03/20/18 05:45 92 H 22 95/59 03/20/18 05:30 84 16 83/59 03/20/18 05:15 90 21 93/60 03/20/18 05:00 94 H 20 96/54 03/20/18 04:45 87 21 95/54 03/20/18 04:30 92 H 20 96/54 03/20/18 04:15 95 H 21 92/61 03/20/18 04:00 83 83 21 109/58 03/20/18 03:45 101 H 19 102/60 03/20/18 03:35 98.4 F 03/20/18 03:30 92 H 21 104/59 03/20/18 03:15 93 H 25 H 106/62 03/20/18 03:00 101 H 20 111/61 03/20/18 02:46 82 16 117/57 03/20/18 02:30 88 16 104/49 03/20/18 02:15 99 H 19 107/55 03/20/18 02:00 89 95 H 24 24 119/74 03/20/18 01:46 89 92 H 23 21 119/74 03/20/18 01:30 97 H 24 108/63 03/20/18 01:15 92 H 20 108/63 03/20/18 01:00 104 H 30 H 103/70 03/20/18 00:45 92 H 27 H 103/70 03/20/18 00:30 88 25 H 105/58 03/20/18 00:16 94 H 21 99/62 03/20/18 00:00 94 H 94 H 22 112/65 03/19/18 23:51 98.8 F 03/19/18 23:45 94 H 21 115/65 03/19/18 23:30 97 H 25 H 112/73 03/19/18 23:15 106 H 20 103/75 03/19/18 23:02 99 H 112/67 03/19/18 23:00 98 H 26 H 112/67 03/19/18 22:45 99 H 22 113/67 03/19/18 22:30 106 H 18 116/69 03/19/18 22:15 99 H 18 110/58 03/19/18 22:00 97 H 27 H 122/70 03/19/18 21:45 100 H 20 112/75 03/19/18 21:30 109 H 20 111/70 03/19/18 21:16 97 H 18 117/56 03/19/18 21:00 106 H 20 101/74 03/19/18 20:46 100 H 22 115/68 03/19/18 20:30 102 H 20 95/77 03/19/18 20:15 102 H 37 H 113/70 03/19/18 20:00 98.3 F 99 H 99 H 16 106/66 03/19/18 19:50 99 H 19 116/79 03/19/18 19:45 103 H 19 116/79 03/19/18 19:30 102 H 17 110/72 03/19/18 19:20 101 H 14 03/19/18 19:15 99 H 18 105/66 03/19/18 19:11 95 H 14 03/19/18 19:00 101 H 20 113/76 03/19/18 18:53 106 H 105/60 03/19/18 18:45 89 17 105/60 03/19/18 18:30 107 H 15 109/71 03/19/18 18:15 104 H 24 109/71 03/19/18 18:00 105 H 16 100/65 03/19/18 17:45 101 H 18 100/65 03/19/18 17:30 96 H 20 108/51 03/19/18 17:16 94 H 17 106/49 03/19/18 17:00 108 H 24 117/70 03/19/18 16:45 110 H 25 H 117/70 03/19/18 16:30 102 H 24 03/19/18 16:16 98 H 24 101/70 03/19/18 16:00 97.5 F L 107 H 107 H 25 H 80/49 03/19/18 15:45 108 H 21 80/49 03/19/18 15:40 98 H 24 03/19/18 15:30 100 H 22 92/47 03/19/18 15:29 89 20 03/19/18 15:28 03/19/18 15:15 101 H 22 89/45 03/19/18 15:06 104 H 92/60 03/19/18 15:00 105 H 18 90/40 03/19/18 14:45 106 H 21 90/40 03/19/18 14:30 100 H 21 99/60 03/19/18 14:15 105 H 19 106/58 03/19/18 14:00 103 H 21 96/56 03/19/18 13:45 105 H 20 100/56 03/19/18 13:30 107 H 19 94/58 03/19/18 13:15 105 H 20 105/58 03/19/18 13:00 105 H 20 95/60 03/19/18 12:45 97 H 35 H 99/58 Pulse Ox 03/20/18 11:00 93 03/20/18 10:45 90 03/20/18 10:30 94 03/20/18 10:21 03/20/18 10:15 90 03/20/18 10:00 92 03/20/18 09:48 03/20/18 09:45 93 03/20/18 09:30 95 03/20/18 09:28 03/20/18 09:27 94 03/20/18 09:15 93 03/20/18 09:00 94 03/20/18 08:45 92 03/20/18 08:30 93 03/20/18 08:15 93 03/20/18 08:00 92 03/20/18 07:46 91 03/20/18 07:30 91 03/20/18 07:15 91 03/20/18 07:00 91 03/20/18 06:45 91 03/20/18 06:38 03/20/18 06:30 91 03/20/18 06:15 90 03/20/18 06:00 91 03/20/18 05:45 90 03/20/18 05:30 94 03/20/18 05:15 91 03/20/18 05:00 90 03/20/18 04:45 90 03/20/18 04:30 91 03/20/18 04:15 91 03/20/18 04:00 91 03/20/18 03:45 92 03/20/18 03:35 03/20/18 03:30 91 03/20/18 03:15 91 03/20/18 03:00 90 03/20/18 02:46 91 03/20/18 02:30 90 03/20/18 02:15 94 03/20/18 02:00 94 03/20/18 01:46 91 03/20/18 01:30 92 03/20/18 01:15 92 03/20/18 01:00 88 03/20/18 00:45 93 03/20/18 00:30 94 03/20/18 00:16 93 03/20/18 00:00 93 03/19/18 23:51 03/19/18 23:45 93 03/19/18 23:30 92 03/19/18 23:15 93 03/19/18 23:02 03/19/18 23:00 93 03/19/18 22:45 93 03/19/18 22:30 93 03/19/18 22:15 93 03/19/18 22:00 90 03/19/18 21:45 93 03/19/18 21:30 91 03/19/18 21:16 93 03/19/18 21:00 94 03/19/18 20:46 97 03/19/18 20:30 94 03/19/18 20:15 96 03/19/18 20:00 96 03/19/18 19:50 95 03/19/18 19:45 97 03/19/18 19:30 96 03/19/18 19:20 03/19/18 19:15 98 03/19/18 19:11 96 03/19/18 19:00 97 03/19/18 18:53 03/19/18 18:45 96 03/19/18 18:30 95 03/19/18 18:15 96 03/19/18 18:00 96 03/19/18 17:45 94 03/19/18 17:30 95 03/19/18 17:16 95 03/19/18 17:00 93 03/19/18 16:45 92 03/19/18 16:30 94 03/19/18 16:16 93 03/19/18 16:00 94 03/19/18 15:45 94 03/19/18 15:40 03/19/18 15:30 95 03/19/18 15:29 03/19/18 15:28 97 03/19/18 15:15 98 03/19/18 15:06 03/19/18 15:00 97 03/19/18 14:45 98 03/19/18 14:30 97 03/19/18 14:15 97 03/19/18 14:00 98 03/19/18 13:45 97 03/19/18 13:30 98 03/19/18 13:15 96 03/19/18 13:00 95 03/19/18 12:45 94 - Physical Examination General: No Apparent Distress, Other (on bipap) HEENT: Positive: EOMI Neck: Positive: neck supple Cardiac: Positive: irregularly irregular, Systolic Murmur Lungs: Positive: Decreased Breath Sounds Neuro: Positive: Grossly Intact, Other (awake) Abdomen: Positive: Soft Skin: Negative: Rash Musculoskeletal: No Pain Extremities: Absent: edema - Imaging and Cardiology EKG: report reviewed, image reviewed Echo: report reviewed (03/2018: EF 45-50%, LA severely dilated, severe MR, mod TR, mod pulm HTN with RVSP 51mmHg, large pericardial effusion seen adjacent to RV, no tamponade, mitral valve vegitation. 10/2017 showed EF 50-55%, restrictive diastolic filling, LA severely dilated, severe MR, prolapse of anterior leaflet of mitral valve, mild TR, RVSP 41mmHg, large pericardial effusion, no evidence of tamponade. ) Cardiac cath: report reviewed ( 08/2016 showed normal coronaries, severe MR, dilated LV and markedly dilated LA, EF around 45-50%. ) - EKG Supraventricular dysrhythmia: atrial fibrillation (with controlled VR.)
--- NOTE | 2018-03-20 12:37 | Progress Note ---
Assessment and Plan Assessment and plan: Acute on chronic hypoxemic respiratory failure. Etiology is multifactorial secondary to pulmonary HTN, CHF, pericardial effusion/pleural effusion,?pneumonia. Patient is now extubated and doing fairly well. Continue O2 to maintain sats. Atrial fibrillation with RVR. Echocardiogram completed on this hospitalization revealed EF 45-50%, LA severely dilated, severe MR, mod TR, mod pulm HTN with RVSP 51mmHg, large pericardial effusion seen adjacent to RV, no tamponade, questionable vegitation. I discussed with Dr. Campbell that Pt is high risk for cardiac tamponade, d/c scheduled IV lasix and cont PRN diuresis as BPs permit, monitor VS closely. Continue heparin drip and consider conversion to oral anticoagulation at discharge. Continue IV amiodarone for rate control. 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 Blood cultures thus far negative. Follow-up pro- calcitonin. Consider ABBI for further evaluation. Presumed pneumonia. ? Post influenza pneumonia. Continue Tamiflu vancomycin and Rocephin and azithromycin. Follow-up influenza PCR. Follow-up MRSA screening PCR. ID following Acute HFpEF. On admission, CXR with mild pulmonary edema; pro-BNP 2498 Large Pericardial effusion. Per cardiology. COPD. continue breathing treatments. IV steroids for pulmonary. Subcutaneous air in the neck. Etiology likely secondary to intubation. Consult surgery if worsens. H/o tobacco use Normal coronary arteries Severe MR H/o prolapse of anterior leaflet of mitral valve The high probability of a clinically significant, sudden or life threatening deterioration of the [cardiac and respiratory] system(s) required my full and direct attention, intervention and personal management. The aggregate critical care time was [33] minutes. This time is in addition to time spent performing reported procedures but includes the following: [x] Data Review and interpretation [x] Patient assessment and monitoring of vital signs [x] Documentation [x] Medication orders and management History Interval history: 57 y/o female with history of COPD on home O2, heavy tobacco use, large pericardial effusion, normal coronary arteries, severe MR; admitted on 03/15/18 due to 2-day history of progressive shortness of breath. The patient was intubated and sedated and remained on mechanical ventilation. However, patient self extubated and doing well Hospitalist Physical - Constitutional Vitals: Temp Pulse Resp BP Pulse Ox 98.4 F 95 H 20 97/58 93 03/20/18 08:00 03/20/18 11:00 03/20/18 11:00 03/20/18 11:00 03/20/18 11:00 General appearance: Present: mild distress, other (intubated, sedated) - EENT Eyes: Present: PERRL, EOM intact ENT: hearing intact, clear oral mucosa, dentition normal - Neck Neck: Present: supple, normal ROM - Respiratory Respiratory effort: normal Respiratory: bilateral: CTA - Cardiovascular Rhythm: regular Heart Sounds: Present: S1 & S2. Absent: gallop, rub - Extremities Extremities: no ischemia, No edema, Full ROM - Abdominal General gastrointestinal: soft, non-tender, non-distended, normal bowel sounds - Integumentary Integumentary: Present: clear, warm, dry - Neurologic Neurologic: CNII-XII intact, moves all extremities Results - Labs CBC & Chem 7: 03/19/18 04:16 03/19/18 04:16 Labs: Laboratory Last Values WBC 18.3 K/mm3 (4.5-11.0) H 03/19/18 04:16 RBC 4.06 M/mm3 (3.65-5.03) 03/19/18 04:16 Hgb 11.7 gm/dl (10.1-14.3) 03/19/18 04:16 Hct 36.4 % (30.3-42.9) 03/19/18 04:16 MCV 90 fl (79-97) 03/19/18 04:16 MCH 29 pg (28-32) 03/19/18 04:16 MCHC 32 % (30-34) 03/19/18 04:16 RDW 16.3 % (13.2-15.2) H 03/19/18 04:16 Plt Count 239 K/mm3 (140-440) 03/19/18 04:16 Lymph % (Auto) 16.4 % (13.4-35.0) 03/19/18 04:16 [place] % (Auto) 8.9 % (0.0-7.3) H 03/19/18 04:16 Eos % (Auto) 0.1 % (0.0-4.3) 03/19/18 04:16 Baso % (Auto) 0.3 % (0.0-1.8) 03/19/18 04:16 Lymph # 3.0 K/mm3 (1.2-5.4) 03/19/18 04:16 [place] # 1.6 K/mm3 (0.0-0.8) H 03/19/18 04:16 Eos # 0.0 K/mm3 (0.0-0.4) 03/19/18 04:16 Baso # 0.1 K/mm3 (0.0-0.1) 03/19/18 04:16 Seg Neutrophils % 74.3 % (40.0-70.0) H 03/19/18 04:16 Seg Neutrophils # 13.6 K/mm3 (1.8-7.7) H 03/19/18 04:16 ESR 17 mm/Hr (0-20) 03/17/18 12:28 PT 15.2 Sec. (12.2-14.9) H 03/15/18 19:47 INR 1.16 (0.87-1.13) H 03/15/18 19:47 APTT 28.4 Sec. (24.2-36.6) 03/15/18 19:47 D-Dimer 1826.96 ng/mlDDU (0-234) H 03/15/18 19:47 Heparin Anti-Xa Level 0.48 U.I./ml (0.3-0.7) 03/19/18 15:18 POC ABG pH 7.441 (7.35-7.45) 03/19/18 06:05 POC ABG pCO2 31.0 (35-45) L 03/19/18 06:05 POC ABG pO2 73 (80-105) L 03/19/18 06:05 POC ABG HCO3 21.1 03/19/18 06:05 POC ABG Total CO2 22 03/19/18 06:05 POC ABG O2 Sat 95 03/19/18 06:05 POC ABG Base Excess -3 03/19/18 06:05 FiO2 40 % 03/19/18 06:05 Sodium 135 mmol/L (137-145) L 03/19/18 04:16 Potassium 5.3 mmol/L (3.6-5.0) H D 03/19/18 04:16 Chloride 98.9 mmol/L (98-107) 03/19/18 04:16 Carbon Dioxide 20 mmol/L (22-30) L 03/19/18 04:16 Anion Gap 21 mmol/L 03/19/18 04:16 BUN 21 mg/dL (7-17) H 03/19/18 04:16 Creatinine 0.7 mg/dL (0.7-1.2) 03/19/18 04:16 Estimated GFR > 60 ml/min 03/19/18 04:16 BUN/Creatinine Ratio 30 % 03/19/18 04:16 Glucose 139 mg/dL (65-100) H 03/19/18 04:16 POC Glucose 135 (70-105) H 03/20/18 11:42 Calcium 8.2 mg/dL (8.4-10.2) L 03/19/18 04:16 Magnesium 1.80 mg/dL (1.7-2.3) 03/16/18 14:38 Total Bilirubin 1.20 mg/dL (0.1-1.2) 03/15/18 19:47 AST 31 units/L (5-40) 03/15/18 19:47 ALT 51 units/L (7-56) 03/15/18 19:47 Alkaline Phosphatase 80 units/L (35-129) 03/15/18 19:47 Total Creatine Kinase 402 units/L (30-135) H 03/16/18 14:38 CK-MB (CK-2) 6.4 ng/mL (0.0-4.0) H 03/16/18 14:38 CK-MB (CK-2) Rel Index 1.5 (0-4) 03/16/18 14:38 Troponin T < 0.010 ng/mL (0.00-0.029) 03/16/18 14:38 C-Reactive Protein 2.90 mg/dL (0.00-1.30) H 03/17/18 17:22 NT-Pro-B Natriuret Pep 2498 pg/mL (0-900) H 03/15/18 19:47 Total Protein 6.2 g/dL (6.3-8.2) L 03/15/18 19:47 Albumin 3.7 g/dL (3.9-5) L 03/15/18 19:47 Albumin/Globulin Ratio 1.5 % 03/15/18 19:47 Triglycerides 116 mg/dL (2-149) 03/19/18 04:16 TSH 0.500 mlU/mL (0.270-4.200) 03/16/18 14:38 Free T4 1.67 ng/dL (0.76-1.46) H 03/16/18 14:38 Vancomycin Trough 20.4 ug/mL (5.0-20.0) H 03/19/18 15:18 Influenza A (Rapid) Negative (Negative) 03/17/18 20:15 Influenza B (Rapid) Negative (Negative) 03/17/18 20:15 Nutrition/Malnutrition Assess - Dietary Evaluation Nutrition/Malnutrition Findings: Nutrition Notes Start: 03/16/18 11:39 Freq: Status: Active Protocol: Document 03/18/18 11:53 CAMPOS (Rec: 03/18/18 12:10 CAMPOS [email or web address]) Co-Sign 03/18/18 11:53 OL Nutrition Notes Initial or Follow up Reassessment Current Diagnosis COPD Heart Failure Current Diet Vital AF at 50ml/hr Labs/Tests Reviewed Pertinent Medications Propofol at 3.594 ml/hr (95 kcals), Height 5 ft 3 in Weight 62.8 kg [place] Body Weight (lbs) 115.0 BMI 24.5 Weight Status Appropriate Subjective/Other Information Observed TF running at goal rate of 50 ml/hr. Pt tolerating TF per pt. nurse. Percent of energy/protein needs met: 100%/100% Burn Absent Trauma Absent Current % PO NEGLIGIBLE #2 Nutrition Diagnosis Inadequate oral intake Etiology On vent As Evidenced by Signs and Symptoms Need for TF #1 Nutrition Diagnosis Predicted suboptimal energy intake Diagnosis Progress(for reassessment Resolved documentation) Is patient on ventilator? Yes Is Patient Ambulatory and/or Out of Bed No REE-([place]-St. Jeor-confined to bed) 1435.080 Calculation Used for Recommendations [place]-St Jeor Additional Notes Pro: 1.2-2 g/Kg BW (75g-126g/ day) Fluid: 1ml/kcal or per MD Nutrition Intervention Change Diet Order: Continue TF Nutrition Support: Vital AF 1.2 at 50ml/hr. Water flush of 80ml q4h. Kcal 1,487 Protein (gm) 90 Fluid (mL) 1,453 Goal #1 TF tolerance Anticipated Discharge Needs: Unknown at this time Follow-Up By: 03/25/18 Additional Comments F/U: TF tolerance
[2018-03-20 13:22] LABS: BUN/Creatinine Ratio 18; Blood Urea Nitrogen 14 mg/dL (7-17); Calcium 7.9 mg/dL (8.4-10.2); Hemolysis Index 1
--- NOTE | 2018-03-20 17:35 | Progress Note ---
Assessment and Plan Cultures: 03/17/2018 blood cultures neg 03/16/2018 sputum Normal resp [place] Assessment: 57 y/o female with history of COPD on home O2, heavy tobacco use, large pericardial effusion, normal coronary arteries, severe MR; admitted on 03/15/18 due to 2-day history of progressive shortness of breath 1) Acute respiratory failure: clinically improving; multifactorial - pulmonary HTN, CHF, pericardial effusion/pleural effusion,?pneumonia 2) Presumed MV [place] endocarditis : so far blood cultures negative, patient without fever and low CRP; patient with history of severe MR and recent ?pneumo jovita. - TTE showed EF 45-50%, LA severely dilated, severe MR, mod TR, mod pulm HTN with RVSP 51mmHg, large pericardial effusion seen adjacent to RV, no tamponade, questionable MV vegetation. - CRP=2.9 3) Presumed pneumonia vs CHF: patient came to the ED on 02/27/18 found to have pneumonia sent home on levaquin. ?influenza vs ?post influenza pneumonia - CTA showed large pericardial effusion, cardiomegaly, groundglass changes bilateral lungs c/w pulmonary edema, moderate ot large right pleural effusion. - repeat CXR clear lungs - rapid influenza neg - MRSA nares neg 4) Large pericardial effusion and right pleural effusion: per cards 5) COPD Recommendations: - f/u procalcitonin - stop tamiflu, vancomycin, ceftriaxone and azithromycin D4 - no evidence of ba cterial infection, flu negative - monitor off abx Dr Montgomery will be rounding Thursday MD [facility] C: [phone] O: [phone] F: [phone] Subjective Date of service: 03/20/18 Principal diagnosis: AFib; HF; respiratory failure; pericardial effusion Interval history: Extubated now on HFO2, talking, on heparin gtt. No fever noted Objective - Exam Narrative Exam: Constitutional: alert and follows commands, on HFO2 30% Head, Ears, Nose: Normocephalic, atraumatic. External ears, nose normal Eyes: Conjunctivae/corneas clear. No icterus. No ptosis. Neck: Supple, no meningeal signs Oral: clear OP, NC HFO2 Cardiovascular: tachycardia Respiratory: scattered rhonchi GI: Soft, non-tender; bowel sounds normal.+umbilical hernia reducible Musculoskeletal: No pedal edema, no cyanosis. Skin: no rash Hem/Lymphatic: No palpable cervical or supraclavicular nodes. No lymphangitis Psych: sedated Neurological:sedated on heparin gtt - Constitutional Vitals: Vital Signs Temp Pulse Resp BP Pulse Ox 98.4 F 93 H 20 106/59 95 03/20/18 12:00 03/20/18 16:56 03/20/18 14:45 03/20/18 16:56 03/20/18 14:30 Temperature -Last 24 Hours Temperature 98.4 F Temperature 98.4 F Temperature 98.4 F Temperature 98.8 F Temperature 98.3 F - Labs CBC & Chem 7: 03/19/18 04:16 03/20/18 12:23 Labs: Abnormal lab results 03/20/18 03/20/18 03/20/18 Range/Units 11:42 12:23 16:14 Heparin Anti-Xa Level 0.23 L (0.3-0.7) U.I./ml Glucose 108 H (65-100) mg/dL POC Glucose 135 H (70-105) Calcium 7.9 L (8.4-10.2) mg/dL
[2018-03-21] MEDS: ATIVAN IV PRN (01:13)
[2018-03-21] MEDS: DUONEB *Not for PRN Use IH SCH ×4 (01:33→20:37)
[2018-03-21 04:41] LABS: Hematocrit 34.2 % (30.3-42.9)
[2018-03-21] MEDS: NITRO-BID 2% TP SCH ×4 (05:51→17:28)
[2018-03-21] MEDS: PEPCID PO SCH ×2 (09:24→21:23)
[2018-03-21] MEDS: DELTASONE PO SCH (09:24)
[2018-03-21] MEDS: BABY ASPIRIN PO SCH (09:25)
[2018-03-21] MEDS: CORDARONE PO SCH ×2 (09:25→21:23)
[2018-03-21] MEDS: TAMIFLU PO SCH ×2 (09:26→21:23)
[2018-03-21] MEDS: HEPARIN/ 0.45% NACL-25,000 UNIT/500 ML 25,000 UNIT/500 ML BAG IV SCH (09:26)
--- NOTE | 2018-03-21 09:31 | Progress Note ---
Assessment and Plan Assessment and plan: Acute on chronic hypoxemic respiratory failure. Etiology is multifactorial secondary to pulmonary HTN, CHF, pericardial effusion/pleural effusion,?pneumonia. Patient is now extubated and doing fairly well. Atrial fibrillation with RVR. Echocardiogram completed on this hospitalization revealed EF 45-50%, LA severely dilated, severe MR, mod TR, mod pulm HTN with RVSP 51mmHg, large pericardial effusion seen adjacent to RV, no tamponade, questionable vegetation. I discussed with Dr. Campbell that Pt is high risk for cardiac tamponade, d/c scheduled IV lasix and cont PRN diuresis as BPs permit, monitor VS closely. Continue heparin drip and consider conversion to oral anticoagulation at discharge. Continue po amiodarone for rate control. 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 Blood cultures thus far negative. Follow-up pro-c alcitonin. Consider ABBI for further evaluation. Presumed pneumonia. ? Post influenza pneumonia. Tamiflu and antibiotics stopped per ID Acute HFpEF. On admission, CXR with mild pulmonary edema; pro-BNP 2498 Large Pericardial effusion. Per cardiology. COPD. continue breathing treatments. IV steroids for pulmonary. Subcutaneous air in the neck. Etiology likely secondary to intubation. Consult surgery if worsens. H/o tobacco use Normal coronary arteries Severe MR H/o prolapse of anterior leaflet of mitral valve Disposition. Deconditioned. PT eval. The high probability of a clinically significant, sudden or life threatening deterioration of the [cardiac and respiratory] system(s) required my full and direct attention, intervention and personal management. The aggregate critical care time was [31] minutes. This time is in addition to time spent performing reported procedures but includes the following: [x] Data Review and interpretation [x] Patient assessment and monitoring of vital signs [x] Documentation [x] Medication orders and management History Interval history: 57 y/o female with history of COPD on home O2, heavy tobacco use, large pericardial effusion, normal coronary arteries, severe MR; admitted on 03/15/18 due to 2-day history of progressive shortness of breath. The patient was intubated and sedated and remained on mechanical ventilation. However, patient self extubated and doing well. Patient still requiring high flow oxygen 15 L at 40%. Patient is on home O2 of 2 L Hospitalist Physical - Constitutional Vitals: Temp Pulse Resp BP Pulse Ox 98.4 F 101 H 29 H 144/73 94 03/21/18 04:00 03/21/18 06:30 03/21/18 06:30 03/21/18 06:30 03/21/18 06:30 General appearance: Present: no acute distress, other (intubated, sedated) - EENT Eyes: Present: PERRL, EOM intact ENT: hearing intact, clear oral mucosa, dentition normal - Neck Neck: Present: supple, normal ROM - Respiratory Respiratory effort: normal Respiratory: bilateral: CTA - Cardiovascular Rhythm: regular Heart Sounds: Present: S1 & S2. Absent: gallop, rub - Extremities Extremities: no ischemia, No edema, Full ROM - Abdominal General gastrointestinal: soft, non-tender, non-distended, normal bowel sounds - Integumentary Integumentary: Present: clear, warm, dry - Neurologic Neurologic: CNII-XII intact, moves all extremities Results - Labs CBC & Chem 7: 03/21/18 03:50 03/20/18 12:23 Labs: Laboratory Last Values WBC 18.3 K/mm3 (4.5-11.0) H 03/19/18 04:16 RBC 4.06 M/mm3 (3.65-5.03) 03/19/18 04:16 Hgb 11.0 gm/dl (10.1-14.3) 03/21/18 03:50 Hct 34.2 % (30.3-42.9) 03/21/18 03:50 MCV 90 fl (79-97) 03/19/18 04:16 MCH 29 pg (28-32) 03/19/18 04:16 MCHC 32 % (30-34) 03/19/18 04:16 RDW 16.3 % (13.2-15.2) H 03/19/18 04:16 Plt Count 256 K/mm3 (140-440) 03/21/18 03:50 Lymph % (Auto) 16.4 % (13.4-35.0) 03/19/18 04:16 [place] % (Auto) 8.9 % (0.0-7.3) H 03/19/18 04:16 Eos % (Auto) 0.1 % (0.0-4.3) 03/19/18 04:16 Baso % (Auto) 0.3 % (0.0-1.8) 03/19/18 04:16 Lymph # 3.0 K/mm3 (1.2-5.4) 03/19/18 04:16 [place] # 1.6 K/mm3 (0.0-0.8) H 03/19/18 04:16 Eos # 0.0 K/mm3 (0.0-0.4) 03/19/18 04:16 Baso # 0.1 K/mm3 (0.0-0.1) 03/19/18 04:16 Seg Neutrophils % 74.3 % (40.0-70.0) H 03/19/18 04:16 Seg Neutrophils # 13.6 K/mm3 (1.8-7.7) H 03/19/18 04:16 ESR 17 mm/Hr (0-20) 03/17/18 12:28 PT 15.2 Sec. (12.2-14.9) H 03/15/18 19:47 INR 1.16 (0.87-1.13) H 03/15/18 19:47 APTT 28.4 Sec. (24.2-36.6) 03/15/18 19:47 D-Dimer 1826.96 ng/mlDDU (0-234) H 03/15/18 19:47 Heparin Anti-Xa Level 0.47 U.I./ml (0.3-0.7) 03/21/18 07:08 POC ABG pH 7.441 (7.35-7.45) 03/19/18 06:05 POC ABG pCO2 31.0 (35-45) L 03/19/18 06:05 POC ABG pO2 73 (80-105) L 03/19/18 06:05 POC ABG HCO3 21.1 03/19/18 06:05 POC ABG Total CO2 22 03/19/18 06:05 POC ABG O2 Sat 95 03/19/18 06:05 POC ABG Base Excess -3 03/19/18 06:05 FiO2 40 % 03/19/18 06:05 Sodium 140 mmol/L (137-145) 03/20/18 12:23 Potassium 3.7 mmol/L (3.6-5.0) D 03/20/18 12:23 Chloride 105.5 mmol/L (98-107) 03/20/18 12:23 Carbon Dioxide 22 mmol/L (22-30) 03/20/18 12:23 Anion Gap 16 mmol/L 03/20/18 12:23 BUN 14 mg/dL (7-17) 03/20/18 12:23 Creatinine 0.8 mg/dL (0.7-1.2) 03/20/18 12:23 Estimated GFR > 60 ml/min 03/20/18 12:23 BUN/Creatinine Ratio 18 % 03/20/18 12:23 Glucose 108 mg/dL (65-100) H 03/20/18 12:23 POC Glucose 99 (70-105) 03/20/18 17:34 Calcium 7.9 mg/dL (8.4-10.2) L 03/20/18 12:23 Magnesium 1.80 mg/dL (1.7-2.3) 03/16/18 14:38 Total Bilirubin 1.20 mg/dL (0.1-1.2) 03/15/18 19:47 AST 31 units/L (5-40) 03/15/18 19:47 ALT 51 units/L (7-56) 03/15/18 19:47 Alkaline Phosphatase 80 units/L (35-129) 03/15/18 19:47 Total Creatine Kinase 402 units/L (30-135) H 03/16/18 14:38 CK-MB (CK-2) 6.4 ng/mL (0.0-4.0) H 03/16/18 14:38 CK-MB (CK-2) Rel Index 1.5 (0-4) 03/16/18 14:38 Troponin T < 0.010 ng/mL (0.00-0.029) 03/16/18 14:38 C-Reactive Protein 2.90 mg/dL (0.00-1.30) H 03/17/18 17:22 NT-Pro-B Natriuret Pep 2498 pg/mL (0-900) H 03/15/18 19:47 Total Protein 6.2 g/dL (6.3-8.2) L 03/15/18 19:47 Albumin 3.7 g/dL (3.9-5) L 03/15/18 19:47 Albumin/Globulin Ratio 1.5 % 03/15/18 19:47 Triglycerides 116 mg/dL (2-149) 03/19/18 04:16 TSH 0.500 mlU/mL (0.270-4.200) 03/16/18 14:38 Free T4 1.67 ng/dL (0.76-1.46) H 03/16/18 14:38 Vancomycin Trough 20.4 ug/mL (5.0-20.0) H 03/19/18 15:18 Influenza A (Rapid) Negative (Negative) 03/17/18 20:15 Influenza B (Rapid) Negative (Negative) 03/17/18 20:15 Miscellaneous Test Flexitest 1 03/17/18 21:05 Nutrition/Malnutrition Assess - Dietary Evaluation Nutrition/Malnutrition Findings: Nutrition Notes Start: 03/16/18 11:39 Freq: Status: Active Protocol: Document 03/18/18 11:53 KH (Rec: 03/18/18 12:10 [email or web address]) Co-Sign 03/18/18 11:53 OL Nutrition Notes Initial or Follow up Reassessment Current Diagnosis COPD Heart Failure Current Diet Vital AF at 50ml/hr Labs/Tests Reviewed Pertinent Medications Propofol at 3.594 ml/hr (95 kcals), Height 5 ft 3 in Weight 62.8 kg [place] Body Weight (lbs) 115.0 BMI 24.5 Weight Status Appropriate Subjective/Other Information Observed TF running at goal rate of 50 ml/hr. Pt tolerating TF per pt. nurse. Percent of energy/protein needs met: 100%/100% Burn Absent Trauma Absent Current % PO NEGLIGIBLE #2 Nutrition Diagnosis Inadequate oral intake Etiology On vent As Evidenced by Signs and Symptoms Need for TF #1 Nutrition Diagnosis Predicted suboptimal energy intake Diagnosis Progress(for reassessment Resolved documentation) Is patient on ventilator? Yes Is Patient Ambulatory and/or Out of Bed No REE-([place]-St. Jeor-confined to bed) 1435.080 Calculation Used for Recommendations [place]-St Jeor Additional Notes Pro: 1.2-2 g/Kg BW (75g-126g/ day) Fluid: 1ml/kcal or per MD Nutrition Intervention Change Diet Order: Continue TF Nutrition Support: Vital AF 1.2 at 50ml/hr. Water flush of 80ml q4h. Kcal 1,487 Protein (gm) 90 Fluid (mL) 1,453 Goal #1 TF tolerance Anticipated Discharge Needs: Unknown at this time Follow-Up By: 03/25/18 Additional Comments F/U: TF tolerance
[2018-03-21] MEDS ORDERED: BENADRYL PO PRN (09:35)
[2018-03-21] MEDS ORDERED: XANAX PO PRN (09:35)
[2018-03-21] MEDS: HABITROL TD SCH (10:50)
--- NOTE | 2018-03-21 12:56 | Progress Note ---
Assessment and Plan - Patient Problems (1) COPD (chronic obstructive pulmonary disease) with acute bronchitis Current Visit: Yes Status: Acute (2) Acute chest pain Current Visit: Yes Status: Acute (3) Atrial fibrillation with rapid ventricular response Current Visit: Yes Status: Acute (4) CHF (congestive heart failure) Current Visit: Yes Status: Acute Qualifiers: Heart failure type: unspecified Heart failure chronicity: acute on chronic Qualified Code(s): I50.9 - Heart failure, unspecified (5) Acute respiratory failure Current Visit: No Status: Acute (6) Pericardial effusion Current Visit: No Status: Acute (7) Pneumonia Current Visit: No Status: Acute (8) Tobacco abuse Current Visit: No Status: Acute (9) Acute and chronic respiratory failure ([id number]) Current Visit: Yes Status: Acute (10) Poor oral hygiene Current Visit: Yes Status: Acute Subjective Principal diagnosis: AFib; HF; respiratory failure; pericardial effusion Interval history: wants to go home Objective Vital Signs - 12hr 03/21/18 03/21/18 03/21/18 01:00 01:16 01:30 Temperature Pulse Rate 96 H 101 H 94 H Pulse Rate [ From Monitor] Respiratory 22 20 28 H Rate Blood Pressure 103/67 103/67 103/67 O2 Sat by Pulse 96 89 97 Oximetry 03/21/18 03/21/18 03/21/18 01:43 01:46 02:00 Temperature Pulse Rate 111 H 98 H Pulse Rate [ From Monitor] Respiratory 22 26 H Rate Blood Pressure 103/67 103/67 O2 Sat by Pulse 92 93 95 Oximetry 03/21/18 03/21/18 03/21/18 02:16 02:30 02:46 Temperature Pulse Rate 112 H 99 H 111 H Pulse Rate [ From Monitor] Respiratory 25 H 22 19 Rate Blood Pressure 135/63 135/63 135/63 O2 Sat by Pulse 87 94 84 Oximetry 03/21/18 03/21/18 03/21/18 03:00 03:16 03:30 Temperature Pulse Rate 94 H 108 H 104 H Pulse Rate [ From Monitor] Respiratory 15 17 21 Rate Blood Pressure 108/53 108/53 108/53 O2 Sat by Pulse 95 83 L 95 Oximetry 03/21/18 03/21/18 03/21/18 03:46 04:00 04:16 Temperature 98.4 F Pulse Rate 96 H 108 H 94 H Pulse Rate [ 117 H From Monitor] Respiratory 19 24 29 H Rate Blood Pressure 108/53 119/66 119/66 O2 Sat by Pulse 96 96 95 Oximetry 03/21/18 03/21/18 03/21/18 04:30 04:46 05:00 Temperature Pulse Rate 100 H 103 H 118 H Pulse Rate [ From Monitor] Respiratory 13 22 26 H Rate Blood Pressure 119/66 119/66 136/90 O2 Sat by Pulse 94 95 94 Oximetry 03/21/18 03/21/18 03/21/18 05:16 05:30 05:46 Temperature Pulse Rate 113 H 108 H 97 H Pulse Rate [ From Monitor] Respiratory 14 26 H 21 Rate Blood Pressure 136/90 136/90 136/90 O2 Sat by Pulse 95 94 96 Oximetry 03/21/18 03/21/18 03/21/18 05:51 06:00 06:16 Temperature Pulse Rate 97 H 115 H 105 H Pulse Rate [ From Monitor] Respiratory 30 H 26 H Rate Blood Pressure 136/90 136/90 144/73 O2 Sat by Pulse 90 93 Oximetry 03/21/18 03/21/18 03/21/18 06:30 06:46 07:00 Temperature Pulse Rate 101 H 113 H 111 H Pulse Rate [ From Monitor] Respiratory 29 H 22 19 Rate Blood Pressure 144/73 144/73 144/73 O2 Sat by Pulse 94 97 97 Oximetry 03/21/18 03/21/18 03/21/18 07:16 07:30 07:46 Temperature Pulse Rate 113 H 101 H 121 H Pulse Rate [ From Monitor] Respiratory 15 21 19 Rate Blood Pressure 100/52 100/52 100/52 O2 Sat by Pulse 96 97 93 Oximetry 03/21/18 03/21/18 03/21/18 08:00 08:16 08:30 Temperature 98.5 F Pulse Rate 107 H 103 H 110 H Pulse Rate [ From Monitor] Respiratory 22 19 21 Rate Blood Pressure 102/57 102/57 102/57 O2 Sat by Pulse 97 98 97 Oximetry 03/21/18 03/21/18 03/21/18 08:46 09:00 09:16 Temperature Pulse Rate 108 H 103 H 107 H Pulse Rate [ From Monitor] Respiratory 22 22 21 Rate Blood Pressure 102/57 113/57 113/57 O2 Sat by Pulse 99 98 96 Oximetry 03/21/18 03/21/18 03/21/18 09:25 09:30 09:46 Temperature Pulse Rate 109 H 103 H 112 H Pulse Rate [ From Monitor] Respiratory 19 15 Rate Blood Pressure 113/57 113/57 113/57 O2 Sat by Pulse 96 97 Oximetry 03/21/18 03/21/18 03/21/18 10:00 10:16 10:30 Temperature Pulse Rate 112 H 104 H 118 H Pulse Rate [ From Monitor] Respiratory 21 27 H 21 Rate Blood Pressure 123/66 123/66 123/66 O2 Sat by Pulse 97 98 97 Oximetry 03/21/18 03/21/18 03/21/18 10:46 11:00 11:16 Temperature Pulse Rate 112 H 128 H 110 H Pulse Rate [ From Monitor] Respiratory 20 25 H 24 Rate Blood Pressure 123/66 123/66 127/54 O2 Sat by Pulse 98 85 82 L Oximetry 03/21/18 03/21/18 03/21/18 11:30 11:46 11:58 Temperature 98.2 F Pulse Rate 112 H 124 H Pulse Rate [ From Monitor] Respiratory 24 24 Rate Blood Pressure 127/54 127/54 O2 Sat by Pulse 98 97 Oximetry Constitutional: no acute distress Eyes: non-icteric ENT: oropharynx moist, other (ETT in position) Neck: supple, JVD Ascultation: Bilateral: diminished breath sounds Cardiovascular: irregular rhythm Gastrointestinal: normoactive bowel sounds, non-distended Integumentary: normal Extremities: no cyanosis Neurologic: normal mental status, non-focal exam, pupils equal and round, CN II- XII normal CBC and BMP: 03/21/18 03:50 03/20/18 12:23 ABG, PT/INR, D-dimer: ABG POC ABG pH 7.441 (7.35-7.45) 03/19/18 06:05 POC ABG pCO2 31.0 (35-45) L 03/19/18 06:05 POC ABG pO2 73 (80-105) L 03/19/18 06:05 POC ABG HCO3 21.1 03/19/18 06:05 POC ABG Total CO2 22 03/19/18 06:05 POC ABG O2 Sat 95 03/19/18 06:05 PT/INR, D-dimer PT 15.2 Sec. (12.2-14.9) H 03/15/18 19:47 INR 1.16 (0.87-1.13) H 03/15/18 19:47 D-Dimer 1826.96 ng/mlDDU (0-234) H 03/15/18 19:47 Abnormal lab findings: Abnormal Labs 03/15/18 03/15/18 03/15/18 19:47 19:47 19:47 WBC RDW 15.6 H Blaine % (Auto) 8.2 H Blaine # Seg Neutrophils % Seg Neutrophils # PT 15.2 H INR 1.16 H D-Dimer 1826.96 H Heparin Anti-Xa Level POC ABG pH POC ABG pCO2 POC ABG pO2 Sodium Potassium Carbon Dioxide 21 L BUN Glucose 124 H POC Glucose Calcium Total Creatine Kinase CK-MB (CK-2) C-Reactive Protein NT-Pro-B Natriuret Pep Total Protein 6.2 L Albumin 3.7 L Free T4 Vancomycin Trough 03/15/18 03/16/18 03/16/18 19:47 02:17 05:29 WBC RDW Blaine % (Auto) Blaine # Seg Neutrophils % Seg Neutrophils # PT INR D-Dimer Heparin Anti-Xa Level POC ABG pH POC ABG pCO2 30.6 L POC ABG pO2 52 L Sodium Potassium Carbon Dioxide BUN Glucose POC Glucose Calcium Total Creatine Kinase 232 H CK-MB (CK-2) 4.9 H C-Reactive Protein NT-Pro-B Natriuret Pep 2498 H Total Protein Albumin Free T4 Vancomycin Trough 03/16/18 03/16/18 03/16/18 05:57 14:38 14:38 WBC RDW Blaine % (Auto) Blaine # Seg Neutrophils % Seg Neutrophils # PT INR D-Dimer Heparin Anti-Xa Level POC ABG pH 7.232 L POC ABG pCO2 45.1 H POC ABG pO2 Sodium Potassium Carbon Dioxide BUN Glucose POC Glucose Calcium Total Creatine Kinase 402 H CK-MB (CK-2) 6.4 H C-Reactive Protein NT-Pro-B Natriuret Pep Total Protein Albumin Free T4 1.67 H Vancomycin Trough 03/16/18 03/17/18 03/17/18 23:25 03:27 17:22 WBC RDW Blaine % (Auto) Blaine # Seg Neutrophils % Seg Neutrophils # PT INR D-Dimer Heparin Anti-Xa Level POC ABG pH 7.568 H POC ABG pCO2 23.4 L POC ABG pO2 78 L Sodium Potassium Carbon Dioxide BUN Glucose POC Glucose 184 H Calcium Total Creatine Kinase CK-MB (CK-2) C-Reactive Protein 2.90 H NT-Pro-B Natriuret Pep Total Protein Albumin Free T4 Vancomycin Trough 03/18/18 03/19/18 03/19/18 05:28 04:16 04:16 WBC 18.3 H RDW 16.3 H Blaine % (Auto) 8.9 H Blaine # 1.6 H Seg Neutrophils % 74.3 H Seg Neutrophils # 13.6 H PT INR D-Dimer Heparin Anti-Xa Level POC ABG pH POC ABG pCO2 33.3 L POC ABG pO2 Sodium 135 L Potassium 5.3 H D Carbon Dioxide 20 L BUN 21 H Glucose 139 H POC Glucose Calcium 8.2 L Total Creatine Kinase CK-MB (CK-2) C-Reactive Protein NT-Pro-B Natriuret Pep Total Protein Albumin Free T4 Vancomycin Trough 03/19/18 03/19/18 03/19/18 04:16 06:05 15:18 WBC RDW Blaine % (Auto) Blaine # Seg Neutrophils % Seg Neutrophils # PT INR D-Dimer Heparin Anti-Xa Level 0.28 L POC ABG pH POC ABG pCO2 31.0 L POC ABG pO2 73 L Sodium Potassium Carbon Dioxide BUN Glucose POC Glucose Calcium Total Creatine Kinase CK-MB (CK-2) C-Reactive Protein NT-Pro-B Natriuret Pep Total Protein Albumin Free T4 Vancomycin Trough 20.4 H 03/20/18 03/20/18 03/20/18 11:42 12:23 16:14 WBC RDW Blaine % (Auto) Blaine # Seg Neutrophils % Seg Neutrophils # PT INR D-Dimer Heparin Anti-Xa Level 0.23 L POC ABG pH POC ABG pCO2 POC ABG pO2 Sodium Potassium Carbon Dioxide BUN Glucose 108 H POC Glucose 135 H Calcium 7.9 L Total Creatine Kinase CK-MB (CK-2) C-Reactive Protein NT-Pro-B Natriuret Pep Total Protein Albumin Free T4 Vancomycin Trough 03/20/18 22:52 WBC RDW Blaine % (Auto) Blaine # Seg Neutrophils % Seg Neutrophils # PT INR D-Dimer Heparin Anti-Xa Level < 0.10 L POC ABG pH POC ABG pCO2 POC ABG pO2 Sodium Potassium Carbon Dioxide BUN Glucose POC Glucose Calcium Total Creatine Kinase CK-MB (CK-2) C-Reactive Protein NT-Pro-B Natriuret Pep Total Protein Albumin Free T4 Vancomycin Trough
--- NOTE | 2018-03-21 15:38 | Progress Note ---
Assessment and Plan Acute on chronic respiratory failure - Atrial fibrillation with RVR - apparently new diagnosis Acute HFpEF - CXR with mild pulmonary edema; pro-BNP 2498 Large pericardial effusion no tamponade Severe MR Mitral valve vegetation ? PNA / ? 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 B.P on low side.Continue present rx. 03/21/2018>no significant change in patient's status. Subjective Principal diagnosis: AFib; HF; respiratory failure; pericardial effusion Interval history: Patient is comfortable. Objective Vital Signs Temp Pulse Pulse Pulse Resp Resp BP 03/21/18 14:51 120 H 117/64 03/21/18 14:14 108 H 18 03/21/18 14:10 107 H 18 03/21/18 13:30 109 H 24 104/50 03/21/18 13:16 111 H 25 H 104/50 03/21/18 13:00 100 H 25 H 91/55 03/21/18 12:46 110 H 22 92/57 03/21/18 12:30 109 H 22 92/57 03/21/18 12:16 100 H 21 92/57 03/21/18 12:00 105 H 106 H 19 127/54 03/21/18 11:58 98.2 F 03/21/18 11:46 124 H 24 127/54 03/21/18 11:30 112 H 24 127/54 03/21/18 11:16 110 H 24 127/54 03/21/18 11:00 128 H 25 H 123/66 03/21/18 10:46 112 H 20 123/66 03/21/18 10:30 118 H 21 123/66 03/21/18 10:16 104 H 27 H 123/66 03/21/18 10:00 112 H 21 123/66 03/21/18 09:46 112 H 15 113/57 03/21/18 09:30 103 H 19 113/57 03/21/18 09:25 109 H 113/57 03/21/18 09:16 107 H 21 113/57 03/21/18 09:00 103 H 22 113/57 03/21/18 08:46 108 H 22 102/57 03/21/18 08:30 110 H 21 102/57 03/21/18 08:16 103 H 19 102/57 03/21/18 08:10 123 H 18 03/21/18 08:00 98.5 F 107 H 122 H 101 H 21 18 102/57 03/21/18 07:46 121 H 19 100/52 03/21/18 07:30 101 H 21 100/52 03/21/18 07:16 113 H 15 100/52 03/21/18 07:00 111 H 19 144/73 03/21/18 06:46 113 H 22 144/73 03/21/18 06:30 101 H 29 H 144/73 03/21/18 06:16 105 H 26 H 144/73 03/21/18 06:00 115 H 30 H 136/90 03/21/18 05:51 97 H 136/90 03/21/18 05:46 97 H 21 136/90 03/21/18 05:30 108 H 26 H 136/90 03/21/18 05:16 113 H 14 136/90 03/21/18 05:00 118 H 26 H 136/90 03/21/18 04:46 103 H 22 119/66 03/21/18 04:30 100 H 13 119/66 03/21/18 04:16 94 H 29 H 119/66 03/21/18 04:00 98.4 F 108 H 117 H 24 119/66 03/21/18 03:46 96 H 19 108/53 03/21/18 03:30 104 H 21 108/53 03/21/18 03:16 108 H 17 108/53 03/21/18 03:00 94 H 15 108/53 03/21/18 02:46 111 H 19 135/63 03/21/18 02:30 99 H 22 135/63 03/21/18 02:16 112 H 25 H 135/63 03/21/18 02:00 98 H 26 H 103/67 03/21/18 01:46 111 H 22 103/67 03/21/18 01:43 03/21/18 01:30 94 H 28 H 103/67 03/21/18 01:16 101 H 20 103/67 03/21/18 01:00 96 H 22 103/67 03/21/18 00:46 106 H 17 114/60 03/21/18 00:30 109 H 16 114/60 03/21/18 00:16 99 H 18 114/60 03/21/18 00:00 98.3 F 95 H 91 H 29 H 121/65 03/20/18 23:46 96 H 26 H 110/61 03/20/18 23:30 105 H 23 03/20/18 23:16 103 H 21 03/20/18 23:00 110 H 22 03/20/18 22:46 89 20 03/20/18 22:30 104 H 28 H 03/20/18 22:16 89 25 H 03/20/18 22:00 101 H 21 03/20/18 21:46 96 H 23 03/20/18 21:30 103 H 22 03/20/18 21:16 104 H 23 03/20/18 21:10 98 H 23 03/20/18 21:00 107 H 24 03/20/18 20:46 111 H 12 03/20/18 20:30 100 H 21 03/20/18 20:16 110 H 19 03/20/18 20:06 89 19 03/20/18 20:00 98.4 F 98 H 89 13 03/20/18 19:46 95 H 20 03/20/18 19:42 84 20 03/20/18 19:35 84 16 03/20/18 17:45 105/54 03/20/18 17:30 97 H 22 111/60 03/20/18 17:15 96 H 20 111/60 03/20/18 17:00 86 13 106/59 03/20/18 16:56 93 H 106/59 03/20/18 16:45 91 H 23 106/59 03/20/18 16:30 94 H 21 98/49 03/20/18 16:15 88 16 98/49 03/20/18 16:00 81 14 91/55 03/20/18 15:45 93 H 19 105/53 Pulse Ox 03/21/18 14:51 03/21/18 14:14 03/21/18 14:10 03/21/18 13:30 98 03/21/18 13:16 98 03/21/18 13:00 97 03/21/18 12:46 97 03/21/18 12:30 96 03/21/18 12:16 97 03/21/18 12:00 97 03/21/18 11:58 03/21/18 11:46 97 03/21/18 11:30 98 03/21/18 11:16 82 L 03/21/18 11:00 85 03/21/18 10:46 98 03/21/18 10:30 97 03/21/18 10:16 98 03/21/18 10:00 97 03/21/18 09:46 97 03/21/18 09:30 96 03/21/18 09:25 03/21/18 09:16 96 03/21/18 09:00 98 03/21/18 08:46 99 03/21/18 08:30 97 03/21/18 08:16 98 03/21/18 08:10 03/21/18 08:00 93 03/21/18 07:46 93 03/21/18 07:30 97 03/21/18 07:16 96 03/21/18 07:00 97 03/21/18 06:46 97 03/21/18 06:30 94 03/21/18 06:16 93 03/21/18 06:00 90 03/21/18 05:51 03/21/18 05:46 96 03/21/18 05:30 94 03/21/18 05:16 95 03/21/18 05:00 94 03/21/18 04:46 95 03/21/18 04:30 94 03/21/18 04:16 95 03/21/18 04:00 96 03/21/18 03:46 96 03/21/18 03:30 95 03/21/18 03:16 83 L 03/21/18 03:00 95 03/21/18 02:46 84 03/21/18 02:30 94 03/21/18 02:16 87 03/21/18 02:00 95 03/21/18 01:46 93 03/21/18 01:43 92 03/21/18 01:30 97 03/21/18 01:16 89 03/21/18 01:00 96 03/21/18 00:46 93 03/21/18 00:30 96 03/21/18 00:16 98 03/21/18 00:00 93 03/20/18 23:46 97 03/20/18 23:30 98 03/20/18 23:16 92 03/20/18 23:00 97 03/20/18 22:46 97 03/20/18 22:30 97 03/20/18 22:16 96 03/20/18 22:00 96 03/20/18 21:46 97 03/20/18 21:30 95 03/20/18 21:16 93 03/20/18 21:10 93 03/20/18 21:00 92 03/20/18 20:46 96 03/20/18 20:30 88 03/20/18 20:16 86 03/20/18 20:06 03/20/18 20:00 95 03/20/18 19:46 93 03/20/18 19:42 93 03/20/18 19:35 94 03/20/18 17:45 03/20/18 17:30 92 03/20/18 17:15 93 03/20/18 17:00 94 03/20/18 16:56 03/20/18 16:45 96 03/20/18 16:30 96 03/20/18 16:15 95 03/20/18 16:00 94 03/20/18 15:45 93 - Physical Examination General: No Apparent Distress, Other HEENT: Positive: EOMI Neck: Positive: neck supple Neuro: Positive: Grossly Intact, Other (awake) Abdomen: Positive: Soft Skin: Negative: Rash Musculoskeletal: No Pain Extremities: Absent: edema - Labs and Meds CBC 03/21/18 Range/Units 03:50 Hgb 11.0 (10.1-14.3) gm/dl Hct 34.2 (30.3-42.9) % Plt Count 256 (140-440) K/mm3 - Imaging and Cardiology EKG: report reviewed, image reviewed Echo: report reviewed (03/2018: EF 45-50%, LA severely dilated, severe MR, mod TR, mod pulm HTN with RVSP 51mmHg, large pericardial effusion seen adjacent to RV, no tamponade, mitral valve vegitation. 10/2017 showed EF 50-55%, restrictive diastolic filling, LA severely dilated, severe MR, prolapse of anterior leaflet of mitral valve, mild TR, RVSP 41mmHg, large pericardial effusion, no evidence of tamponade. ) Cardiac cath: report reviewed ( 08/2016 showed normal coronaries, severe MR, dilated LV and markedly dilated LA, EF around 45-50%. )
[2018-03-22 05:00] LABS: Basophils % (Auto) 0.3 % (0.0-1.8); Eosinophils # (Auto) 0.3 K/mm3 (0.0-0.4); Eosinophils % (Auto) 2.2 % (0.0-4.3); Hematocrit 30.4 % (30.3-42.9); Hemoglobin 9.9 gm/dl (10.1-14.3); Lymphocytes # (Auto) 2.2 K/mm3 (1.2-5.4); Lymphocytes % (Auto) 16.6 % (13.4-35.0); Mean Corpuscular HGB Conc 33 % (30-34); Mean Corpuscular Volume 89 fl (79-97); Monocytes # (Auto) 1.6 K/mm3 (0.0-0.8); Platelet Count 250 K/mm3 (140-440); Red Blood Count 3.43 M/mm3 (3.65-5.03); Red Cell Distribution Width 16.1 % (13.2-15.2)
[2018-03-22 05:20] LABS: BUN/Creatinine Ratio 12; Blood Urea Nitrogen 7 mg/dL (7-17); Calcium 8.4 mg/dL (8.4-10.2); Hemolysis Index 2
[2018-03-22] MEDS ORDERED: TESSALON PERLES PO PRN (05:23)
[2018-03-22] MEDS: NITRO-BID 2% TP SCH ×4 (05:54→17:56)
[2018-03-22] MEDS ORDERED: DUONEB *Not for PRN Use IH SCH ×2 (08:00→14:00)
--- NOTE | 2018-03-22 09:24 | Progress Note ---
<EVON JORDANPepe STANLEY - Last Filed: 03/22/18 09:31> Assessment and Plan Assessment: Acute on chronic respiratory failure - extubated Atrial fibrillation with RVR - apparently new diagnosis Acute HFpEF - EF 45-50%; CXR with mild pulmonary edema; pro-BNP 2498 Large pericardial effusion - no evidence of tamponade Severe MR - OP management Mitral valve vegetation - ID following ? PNA / ? 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 Pulmonary HTN - RVSP 51mmHg ? Hyperthyroidism - further eval/management per primary Plan: Optimize HR - initiate low dose cardizem 30mg Q6H and increase as BPs permit. Cont PO amio 200mg BID. Cont intermittent diuresis as BPs permit. D/c heparin gtt and initiate Eliquis 5mg BID. Currently stable cardiac status. Pt may tx from IMCU to telemetry from cardiology standpoint. The patient has been seen in conjunction with Dr. Dominguez who agrees with the assessment and plan of care. Subjective Date of service: 03/22/18 Principal diagnosis: AFib; HF; respiratory failure; pericardial effusion Interval history: pt sitting up at bedside, eating breakfast, states she is feeling well today. remains in AFib on tele with HR 90s - 100s. heparin gtt infusing. Objective Last Vital Signs Temp 98.7 F 03/22/18 08:00 Pulse 113 H 03/22/18 08:00 Resp 21 03/22/18 08:00 BP 115/67 03/22/18 08:00 Pulse Ox 98 03/22/18 08:00 - Physical Examination General: Appears Well, No Apparent Distress HEENT: Positive: PERRL, Normocephaly, Mucus Membranes Moist Neck: Positive: neck supple Cardiac: Positive: irregularly irregular, S1/S2 Lungs: Positive: Decreased Breath Sounds Neuro: Positive: Grossly Intact, Other (awake) Abdomen: Positive: Soft Skin: Negative: Rash Musculoskeletal: No Pain Extremities: Absent: edema - Labs and Meds CBC 03/22/18 Range/Units 04:13 WBC 13.5 H (4.5-11.0) K/mm3 RBC 3.43 L (3.65-5.03) M/mm3 Hgb 9.9 L (10.1-14.3) gm/dl Hct 30.4 (30.3-42.9) % Plt Count 250 (140-440) K/mm3 Lymph # 2.2 (1.2-5.4) K/mm3 Archer # 1.6 H (0.0-0.8) K/mm3 Eos # 0.3 (0.0-0.4) K/mm3 Baso # 0.0 (0.0-0.1) K/mm3 Comprehensive Metabolic Panel 03/22/18 Range/Units 04:13 Sodium 142 (137-145) mmol/L Potassium 3.3 L (3.6-5.0) mmol/L Chloride 105.1 (98-107) mmol/L Carbon Dioxide 25 (22-30) mmol/L BUN 7 (7-17) mg/dL Creatinine 0.6 L (0.7-1.2) mg/dL Glucose 89 (65-100) mg/dL Calcium 8.4 (8.4-10.2) mg/dL - Imaging and Cardiology EKG: report reviewed, image reviewed Echo: report reviewed (03/2018: EF 45-50%, LA severely dilated, severe MR, mod TR, mod pulm HTN with RVSP 51mmHg, large pericardial effusion seen adjacent to RV, no tamponade, mitral valve vegitation. 10/2017 showed EF 50-55%, restrictive diastolic filling, LA severely dilated, severe MR, prolapse of anterior leaflet of mitral valve, mild TR, RVSP 41mmHg, large pericardial effusion, no evidence of tamponade. ) Cardiac cath: report reviewed ( 08/2016 showed normal coronaries, severe MR, dilated LV and markedly dilated LA, EF around 45-50%. 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 Indefinite oral anticoagulation Discuss with ID best option Severe MR/Pulmonary hypertension Chronic Once clinically stable will need evaluation for possible surgical intervention New onset Atrial fibrillation Tele: 95-103bpm Continue oral anticoagulation Continue Amiodarone, titrate down to 200 QDAY in 2 days Start Cardizem 30mg QID/Beta herrera preferred will discuss with Pulmonary Objective Vital Signs Temp Pulse Pulse Pulse Resp Resp BP 03/22/18 08:00 98.7 F 109 H 113 H 15 115/67 03/22/18 07:46 103 H 19 115/67 03/22/18 07:30 105 H 20 115/67 03/22/18 07:16 90 19 115/67 03/22/18 07:00 102 H 21 115/67 03/22/18 06:46 97 H 22 104/53 03/22/18 06:30 103 H 26 H 104/53 03/22/18 06:16 108 H 27 H 104/53 03/22/18 06:00 101 H 27 H 104/53 03/22/18 05:54 107 H 116/62 03/22/18 05:46 105 H 24 116/62 03/22/18 05:30 96 H 26 H 116/62 03/22/18 05:16 114 H 38 H 116/62 03/22/18 05:00 109 H 27 H 99/53 03/22/18 04:46 102 H 24 99/53 03/22/18 04:30 110 H 18 210/140 03/22/18 04:16 108 H 21 210/140 03/22/18 04:00 99.3 F 98 H 113 H 23 153/93 03/22/18 03:46 101 H 22 153/93 03/22/18 03:30 103 H 19 153/93 03/22/18 03:16 103 H 20 153/93 03/22/18 03:00 117 H 22 03/22/18 02:46 99 H 16 03/22/18 02:30 98 H 24 03/22/18 02:17 92 H 23 03/22/18 02:00 101 H 15 103/61 03/22/18 01:46 104 H 28 H 103/61 03/22/18 01:30 126 H 20 103/61 03/22/18 01:16 101 H 16 103/61 03/22/18 01:00 109 H 18 105/63 03/22/18 00:46 117 H 28 H 105/63 03/22/18 00:30 103 H 17 105/63 03/22/18 00:16 106 H 22 105/63 03/22/18 00:00 98.2 F 112 H 100 H 23 105/60 03/21/18 23:46 115 H 12 105/60 03/21/18 23:30 105 H 24 105/60 03/21/18 23:16 98 H 24 105/60 03/21/18 23:00 117 H 23 104/65 03/21/18 22:46 106 H 46 H 03/21/18 22:30 109 H 34 H 03/21/18 22:16 74 19 104/59 03/21/18 22:06 111 H 31 H 49/20 03/21/18 22:00 104 H 20 108/63 03/21/18 21:46 101 H 23 108/63 03/21/18 21:30 106 H 17 108/63 03/21/18 21:16 111 H 20 108/63 03/21/18 21:00 109 H 18 108/63 03/21/18 20:50 108 H 20 03/21/18 20:46 102 H 22 102/69 03/21/18 20:39 03/21/18 20:38 93 H 18 03/21/18 20:30 108 H 18 102/69 03/21/18 20:16 105 H 21 102/69 03/21/18 20:00 98.6 F 114 H 103 H 22 102/80 03/21/18 19:46 103 H 17 102/80 03/21/18 19:30 109 H 20 102/80 03/21/18 19:16 108 H 20 102/80 03/21/18 19:01 102/80 03/21/18 18:46 18 91/55 03/21/18 18:30 95 H 19 91/55 03/21/18 18:16 107 H 20 91/55 03/21/18 18:00 85 22 102/64 03/21/18 17:46 102/64 03/21/18 17:30 95 H 15 102/64 03/21/18 17:28 103 H 102/64 03/21/18 17:16 103 H 23 102/64 03/21/18 17:00 103 H 22 168/129 03/21/18 16:46 106 H 22 168/129 03/21/18 16:30 119 H 20 168/129 03/21/18 16:16 106 H 17 168/129 03/21/18 16:00 125 H 102 H 22 157/132 03/21/18 15:46 116 H 25 H 157/132 03/21/18 15:30 112 H 19 157/132 03/21/18 15:16 109 H 16 157/132 03/21/18 15:00 116 H 22 117/64 03/21/18 14:51 120 H 117/64 03/21/18 14:46 111 H 17 117/64 03/21/18 14:30 96 H 22 117/64 03/21/18 14:16 107 H 25 H 117/64 03/21/18 14:14 108 H 18 03/21/18 14:10 107 H 18 03/21/18 14:00 102 H 18 117/64 03/21/18 13:46 101 H 21 104/50 03/21/18 13:30 109 H 24 104/50 03/21/18 13:16 111 H 25 H 104/50 03/21/18 13:00 100 H 25 H 91/55 03/21/18 12:46 110 H 22 92/57 03/21/18 12:30 109 H 22 92/57 03/21/18 12:16 100 H 21 92/57 03/21/18 12:00 105 H 106 H 19 127/54 03/21/18 11:58 98.2 F 03/21/18 11:46 124 H 24 127/54 03/21/18 11:30 112 H 24 127/54 03/21/18 11:16 110 H 24 127/54 03/21/18 11:00 128 H 25 H 123/66 03/21/18 10:46 112 H 20 123/66 03/21/18 10:30 118 H 21 123/66 03/21/18 10:16 104 H 27 H 123/66 Pulse Ox 03/22/18 08:00 96 03/22/18 07:46 98 03/22/18 07:30 98 03/22/18 07:16 97 03/22/18 07:00 99 03/22/18 06:46 99 03/22/18 06:30 98 03/22/18 06:16 97 03/22/18 06:00 97 03/22/18 05:54 03/22/18 05:46 97 03/22/18 05:30 95 03/22/18 05:16 95 03/22/18 05:00 94 03/22/18 04:46 95 03/22/18 04:30 99 03/22/18 04:16 98 03/22/18 04:00 98 03/22/18 03:46 97 03/22/18 03:30 97 03/22/18 03:16 95 03/22/18 03:00 96 03/22/18 02:46 97 03/22/18 02:30 97 03/22/18 02:17 98 03/22/18 02:00 97 03/22/18 01:46 98 03/22/18 01:30 96 03/22/18 01:16 96 03/22/18 01:00 95 03/22/18 00:46 95 03/22/18 00:30 95 03/22/18 00:16 87 03/22/18 00:00 94 03/21/18 23:46 94 03/21/18 23:30 95 03/21/18 23:16 95 03/21/18 23:00 94 03/21/18 22:46 94 03/21/18 22:30 96 03/21/18 22:16 95 03/21/18 22:06 96 03/21/18 22:00 92 03/21/18 21:46 96 03/21/18 21:30 93 03/21/18 21:16 93 03/21/18 21:00 94 03/21/18 20:50 03/21/18 20:46 96 03/21/18 20:39 97 03/21/18 20:38 03/21/18 20:30 66 L 03/21/18 20:16 03/21/18 20:00 97 03/21/18 19:46 03/21/18 19:30 03/21/18 19:16 03/21/18 19:01 03/21/18 18:46 100 03/21/18 18:30 100 03/21/18 18:16 99 03/21/18 18:00 99 03/21/18 17:46 98 03/21/18 17:30 99 03/21/18 17:28 03/21/18 17:16 100 03/21/18 17:00 100 03/21/18 16:46 99 03/21/18 16:30 99 03/21/18 16:16 98 03/21/18 16:00 98 03/21/18 15:46 97 03/21/18 15:30 99 03/21/18 15:16 95 03/21/18 15:00 98 03/21/18 14:51 03/21/18 14:46 96 03/21/18 14:30 96 03/21/18 14:16 97 03/21/18 14:14 03/21/18 14:10 03/21/18 14:00 97 03/21/18 13:46 98 03/21/18 13:30 98 03/21/18 13:16 98 03/21/18 13:00 97 03/21/18 12:46 97 03/21/18 12:30 96 03/21/18 12:16 97 03/21/18 12:00 97 03/21/18 11:58 03/21/18 11:46 97 03/21/18 11:30 98 03/21/18 11:16 82 L 03/21/18 11:00 85 03/21/18 10:46 98 03/21/18 10:30 97 03/21/18 10:16 98 - Labs and Meds CBC 03/22/18 Range/Units 04:13 WBC 13.5 H (4.5-11.0) K/mm3 RBC 3.43 L (3.65-5.03) M/mm3 Hgb 9.9 L (10.1-14.3) gm/dl Hct 30.4 (30.3-42.9) % Plt Count 250 (140-440) K/mm3 Lymph # 2.2 (1.2-5.4) K/mm3 Archer # 1.6 H (0.0-0.8) K/mm3 Eos # 0.3 (0.0-0.4) K/mm3 Baso # 0.0 (0.0-0.1) K/mm3 Comprehensive Metabolic Panel 03/22/18 Range/Units 04:13 Sodium 142 (137-145) mmol/L Potassium 3.3 L (3.6-5.0) mmol/L Chloride 105.1 (98-107) mmol/L Carbon Dioxide 25 (22-30) mmol/L BUN 7 (7-17) mg/dL Creatinine 0.6 L (0.7-1.2) mg/dL Glucose 89 (65-100) mg/dL Calcium 8.4 (8.4-10.2) mg/dL
--- NOTE | 2018-03-22 10:37 | Progress Note ---
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 DDx. Bacterial endocarditis vs marantic endocarditis. Per patient and family, no known animal exposure to suggest bartonella, coxiella, etc. - TTE showed EF 45-50%, LA severely dilated, severe MR, mod TR, mod pulm HTN with RVSP 51mmHg, large pericardial effusion seen adjacent to RV, no tamponade, questionable MV vegetation. - CRP=2.9 3) Presumed pneumonia vs CHF: patient came to the ED on 02/27/18 found to have pneumonia sent home on levaquin. ?influenza vs ?post influenza pneumonia - CTA showed large pericardial effusion, cardiomegaly, groundglass changes bilateral lungs c/w pulmonary edema, moderate to large right pleural effusion. - rapid influenza neg - very likely CHF. 4) Large pericardial effusion and right pleural effusion: per cardiology 5) COPD 6) Leucocytosis: probably from steroids. Recommendations: - continue off abx - clinically, low suspicion for an acute or subacute bacterial endocarditis - patient has severe MR, a definitive diagnosis can be made if and when a patient undergoes valve surgery with the help of histopath and direct valve cultures - mild leucocytosis is probably from steroids Will follow. Pinky Montgomery MD [facility] C: [phone] O: [phone] F: [phone] Subjective Date of service: 03/22/18 Principal diagnosis: AFib; HF; respiratory failure; pericardial effusion Interval history: Patient moved to [facility]. Doing well. Denies any complaints. Off abx since 02/2019. Objective - Exam Narrative Exam: Physical Exam: Constitutional: Alert, cooperative. No distress. Head, Ears, Nose: Normocephalic, atraumatic. External ears, nose normal Eyes: Conjunctivae/corneas clear. No icterus. No ptosis. Neck: Supple, no meningeal signs Oral: mucosa moist, no ulcers Cardiovascular: S1, S2 normal, systolic murmur + Respiratory: clear to auscultation bilaterally, AE reduced in the bases. GI: Soft, non-tender; bowel sounds normal. No peritoneal signs Musculoskeletal: No pedal edema, no cyanosis. Skin: No rash or abscess Hem/Lymphatic: No palpable cervical or supraclavicular nodes. No lymphangitis Psych: Mood ok. Affect normal Neurological: Awake, alert, oriented. No gross abnormality - Constitutional Vitals: Vital Signs Temp Pulse Resp BP Pulse Ox 98.7 F 113 H 21 115/67 98 03/22/18 08:00 03/22/18 08:00 03/22/18 08:00 03/22/18 08:00 03/22/18 08:00 Temperature -Last 24 Hours Temperature 98.7 F Temperature 99.3 F Temperature 98.2 F Temperature 98.6 F Temperature 98.2 F - Labs CBC & Chem 7: 03/22/18 04:13 03/22/18 04:13 Labs: Abnormal lab results 03/22/18 03/22/18 Range/Units 04:13 04:13 WBC 13.5 H (4.5-11.0) K/mm3 RBC 3.43 L (3.65-5.03) M/mm3 Hgb 9.9 L (10.1-14.3) gm/dl RDW 16.1 H (13.2-15.2) % Larimer % (Auto) 12.0 H (0.0-7.3) % Larimer # 1.6 H (0.0-0.8) K/mm3 Seg Neutrophils # 9.3 H (1.8-7.7) K/mm3 Potassium 3.3 L (3.6-5.0) mmol/L Creatinine 0.6 L (0.7-1.2) mg/dL
[2018-03-22] MEDS: DELTASONE PO SCH (10:42)
[2018-03-22] MEDS: CORDARONE PO SCH (10:42)
[2018-03-22] MEDS: PEPCID PO SCH (10:42)
[2018-03-22] MEDS: BABY ASPIRIN PO SCH (10:42)
[2018-03-22] MEDS: HABITROL TD SCH (10:42)
[2018-03-22] MEDS: TAMIFLU PO SCH (10:43)
--- NOTE | 2018-03-22 10:45 | Event Note ---
Date: 03/22/18 Large pericardial effusion No tamponade physiology asymptomatic Will need follow up as outpatient for resolution vs pericardial window Severe MR/?Marantic endocarditis Indefinite oral anticoagulation Discuss with ID best option Severe MR/Pulmonary hypertension Chronic Once clinically stable will need evaluation for possible surgical intervention New onset Atrial fibrillation Tele: 95-103bpm Continue oral anticoagulation Continue Amiodarone, titrate down to 200 QDAY in 2 days Start Cardizem 30mg QID/Beta herrera preferred will discuss with Pulmonary
--- NOTE | 2018-03-22 11:43 | Progress Note ---
Assessment and Plan Assessment and plan: Acute on chronic hypoxemic respiratory failure. Etiology is multifactorial secondary to pulmonary HTN, CHF, pericardial effusion/pleural effusion,?pneumonia. Patient is now extubated and doing fairly well. New-onset Atrial fibrillation with RVR. Echocardiogram completed on this hospitalization revealed EF 45-50%, LA severely dilated, severe MR, mod TR, mod pulm HTN with RVSP 51mmHg, large pericardial effusion seen adjacent to RV, no tamponade, questionable vegetation. Continue heparin drip and consider conversion to oral anticoagulation at discharge. Continue po amiodarone for rate control. 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 Blood cultures thus far negative. Follow-up pro-calcitonin. Consider ABBI for further evaluation. Once clinically stable will need evaluation for possible surgical intervention Presumed pneumonia. ? Post influenza pneumonia. Tamiflu and antibiotics stopped per ID Acute HFpEF. On admission, CXR with mild pulmonary edema; pro-BNP 2498 Large Pericardial effusion. Per cardiology. COPD. continue breathing treatments. IV steroids for pulmonary. Subcutaneous air in the neck. Etiology likely secondary to intubation. Consult surgery if worsens. H/o tobacco use Normal coronary arteries Severe MR H/o prolapse of anterior leaflet of mitral valve Disposition. Deconditioned. PT eval. History Interval history: 57 y/o female with history of COPD on home O2, heavy tobacco use, large pericardial effusion, normal coronary arteries, severe MR; admitted on 03/15/18 due to 2-day history of progressive shortness of breath. The patient was intubated and sedated and remained on mechanical ventilation. However, patient self extubated and doing well. Patient still requiring high flow oxygen 15 L at 40%. Patient is on home O2 of 2 L Hospitalist Physical - Constitutional Vitals: Temp Pulse Resp BP Pulse Ox 98.7 F 95 H 16 119/60 98 03/22/18 08:00 03/22/18 10:41 03/22/18 10:30 03/22/18 10:41 03/22/18 10:30 General appearance: Present: no acute distress, other (intubated, sedated) - EENT Eyes: Present: PERRL, EOM intact ENT: hearing intact, clear oral mucosa, dentition normal - Neck Neck: Present: supple, normal ROM - Respiratory Respiratory effort: normal Respiratory: bilateral: CTA - Cardiovascular Rhythm: regular Heart Sounds: Present: S1 & S2. Absent: gallop, rub - Extremities Extremities: no ischemia, No edema, Full ROM - Abdominal General gastrointestinal: soft, non-tender, non-distended, normal bowel sounds - Integumentary Integumentary: Present: clear, warm, dry - Neurologic Neurologic: CNII-XII intact, moves all extremities Results - Labs CBC & Chem 7: 03/22/18 04:13 03/22/18 04:13 Labs: Laboratory Last Values WBC 13.5 K/mm3 (4.5-11.0) H 03/22/18 04:13 RBC 3.43 M/mm3 (3.65-5.03) L 03/22/18 04:13 Hgb 9.9 gm/dl (10.1-14.3) L 03/22/18 04:13 Hct 30.4 % (30.3-42.9) 03/22/18 04:13 MCV 89 fl (79-97) 03/22/18 04:13 MCH 29 pg (28-32) 03/22/18 04:13 MCHC 33 % (30-34) 03/22/18 04:13 RDW 16.1 % (13.2-15.2) H 03/22/18 04:13 Plt Count 250 K/mm3 (140-440) 03/22/18 04:13 Lymph % (Auto) 16.6 % (13.4-35.0) 03/22/18 04:13 Donley % (Auto) 12.0 % (0.0-7.3) H 03/22/18 04:13 Eos % (Auto) 2.2 % (0.0-4.3) 03/22/18 04:13 Baso % (Auto) 0.3 % (0.0-1.8) 03/22/18 04:13 Lymph # 2.2 K/mm3 (1.2-5.4) 03/22/18 04:13 Donley # 1.6 K/mm3 (0.0-0.8) H 03/22/18 04:13 Eos # 0.3 K/mm3 (0.0-0.4) 03/22/18 04:13 Baso # 0.0 K/mm3 (0.0-0.1) 03/22/18 04:13 Seg Neutrophils % 68.9 % (40.0-70.0) 03/22/18 04:13 Seg Neutrophils # 9.3 K/mm3 (1.8-7.7) H 03/22/18 04:13 ESR 17 mm/Hr (0-20) 03/17/18 12:28 PT 15.2 Sec. (12.2-14.9) H 03/15/18 19:47 INR 1.16 (0.87-1.13) H 03/15/18 19:47 APTT 28.4 Sec. (24.2-36.6) 03/15/18 19:47 D-Dimer 1826.96 ng/mlDDU (0-234) H 03/15/18 19:47 Heparin Anti-Xa Level 0.31 U.I./ml (0.3-0.7) 03/21/18 15:03 POC ABG pH 7.441 (7.35-7.45) 03/19/18 06:05 POC ABG pCO2 31.0 (35-45) L 03/19/18 06:05 POC ABG pO2 73 (80-105) L 03/19/18 06:05 POC ABG HCO3 21.1 03/19/18 06:05 POC ABG Total CO2 22 03/19/18 06:05 POC ABG O2 Sat 95 03/19/18 06:05 POC ABG Base Excess -3 03/19/18 06:05 FiO2 40 % 03/19/18 06:05 Sodium 142 mmol/L (137-145) 03/22/18 04:13 Potassium 3.3 mmol/L (3.6-5.0) L 03/22/18 04:13 Chloride 105.1 mmol/L (98-107) 03/22/18 04:13 Carbon Dioxide 25 mmol/L (22-30) 03/22/18 04:13 Anion Gap 15 mmol/L 03/22/18 04:13 BUN 7 mg/dL (7-17) 03/22/18 04:13 Creatinine 0.6 mg/dL (0.7-1.2) L 03/22/18 04:13 Estimated GFR > 60 ml/min 03/22/18 04:13 BUN/Creatinine Ratio 12 % 03/22/18 04:13 Glucose 89 mg/dL (65-100) 03/22/18 04:13 POC Glucose 99 (70-105) 03/20/18 17:34 Calcium 8.4 mg/dL (8.4-10.2) 03/22/18 04:13 Magnesium 1.80 mg/dL (1.7-2.3) 03/16/18 14:38 Total Bilirubin 1.20 mg/dL (0.1-1.2) 03/15/18 19:47 AST 31 units/L (5-40) 03/15/18 19:47 ALT 51 units/L (7-56) 03/15/18 19:47 Alkaline Phosphatase 80 units/L (35-129) 03/15/18 19:47 Total Creatine Kinase 402 units/L (30-135) H 03/16/18 14:38 CK-MB (CK-2) 6.4 ng/mL (0.0-4.0) H 03/16/18 14:38 CK-MB (CK-2) Rel Index 1.5 (0-4) 03/16/18 14:38 Troponin T < 0.010 ng/mL (0.00-0.029) 03/16/18 14:38 C-Reactive Protein 2.90 mg/dL (0.00-1.30) H 03/17/18 17:22 NT-Pro-B Natriuret Pep 2498 pg/mL (0-900) H 03/15/18 19:47 Total Protein 6.2 g/dL (6.3-8.2) L 03/15/18 19:47 Albumin 3.7 g/dL (3.9-5) L 03/15/18 19:47 Albumin/Globulin Ratio 1.5 % 03/15/18 19:47 Triglycerides 116 mg/dL (2-149) 03/19/18 04:16 TSH 0.500 mlU/mL (0.270-4.200) 03/16/18 14:38 Free T4 1.67 ng/dL (0.76-1.46) H 03/16/18 14:38 Vancomycin Trough 20.4 ug/mL (5.0-20.0) H 03/19/18 15:18 Influenza A (Rapid) Negative (Negative) 03/17/18 20:15 Influenza B (Rapid) Negative (Negative) 03/17/18 20:15 Miscellaneous Test Flexitest 1 03/17/18 21:05 Nutrition/Malnutrition Assess - Dietary Evaluation Nutrition/Malnutrition Findings: Nutrition Notes Start: 03/16/18 11:39 Freq: Status: Active Protocol: Document 03/18/18 11:53 KH (Rec: 03/18/18 12:10 KH [email or web address]) Co-Sign 03/18/18 11:53 OL Nutrition Notes Initial or Follow up Reassessment Current Diagnosis COPD Heart Failure Current Diet Vital AF at 50ml/hr Labs/Tests Reviewed Pertinent Medications Propofol at 3.594 ml/hr (95 kcals), Height 5 ft 3 in Weight 62.8 kg [place] Body Weight (lbs) 115.0 BMI 24.5 Weight Status Appropriate Subjective/Other Information Observed TF running at goal rate of 50 ml/hr. Pt tolerating TF per pt. nurse. Percent of energy/protein needs met: 100%/100% Burn Absent Trauma Absent Current % PO Negligible #2 Nutrition Diagnosis Inadequate oral intake Etiology On vent As Evidenced by Signs and Symptoms Need for TF #1 Nutrition Diagnosis Predicted suboptimal energy intake Diagnosis Progress(for reassessment Resolved documentation) Is patient on ventilator? Yes Is Patient Ambulatory and/or Out of Bed No REE-([facility]-confined to bed) 1435.080 Calculation Used for Recommendations [facility] Additional Notes Pro: 1.2-2 g/Kg BW (75g-126g/ day) Fluid: 1ml/kcal or per MD Nutrition Intervention Change Diet Order: Continue TF Nutrition Support: Vital AF 1.2 at 50ml/hr. Water flush of 80ml q4h. Kcal 1,487 Protein (gm) 90 Fluid (mL) 1,453 Goal #1 TF tolerance Anticipated Discharge Needs: Unknown at this time Follow-Up By: 03/25/18 Additional Comments F/U: TF tolerance
--- NOTE | 2018-03-22 12:45 | Progress Note ---
Assessment and Plan 57 y/o female with acute respiratory failure s/p extubation with large pericardial effusion and other cardiac abnormalities. 1. Wean FiO2 for sats >88% 2. Currently on PO prednisone, not on IV 3. Appears stable for at least transfer out of step down 4. Follow up any new cards recs. Subjective Date of service: 03/22/18 Principal diagnosis: AFib; HF; respiratory failure; pericardial effusion Interval history: No acute events. Sitting on side of bed on cell phone. NO distress noted. Currently on 4 liters NC Objective Vital Signs - 12hr 03/22/18 03/22/18 03/22/18 00:46 01:00 01:16 Temperature Pulse Rate 117 H 109 H 101 H Pulse Rate [ From Monitor] Respiratory 28 H 18 16 Rate Blood Pressure 105/63 105/63 103/61 O2 Sat by Pulse 95 95 96 Oximetry 03/22/18 03/22/18 03/22/18 01:30 01:46 02:00 Temperature Pulse Rate 126 H 104 H 101 H Pulse Rate [ From Monitor] Respiratory 20 28 H 15 Rate Blood Pressure 103/61 103/61 103/61 O2 Sat by Pulse 96 98 97 Oximetry 03/22/18 03/22/18 03/22/18 02:17 02:30 02:46 Temperature Pulse Rate 92 H 98 H 99 H Pulse Rate [ From Monitor] Respiratory 23 24 16 Rate Blood Pressure O2 Sat by Pulse 98 97 97 Oximetry 03/22/18 03/22/18 03/22/18 03:00 03:16 03:30 Temperature Pulse Rate 117 H 103 H 103 H Pulse Rate [ From Monitor] Respiratory 22 20 19 Rate Blood Pressure 153/93 153/93 O2 Sat by Pulse 96 95 97 Oximetry 03/22/18 03/22/18 03/22/18 03:46 04:00 04:16 Temperature 99.3 F Pulse Rate 101 H 98 H 108 H Pulse Rate [ 113 H From Monitor] Respiratory 22 23 21 Rate Blood Pressure 153/93 153/93 210/140 O2 Sat by Pulse 97 98 98 Oximetry 03/22/18 03/22/18 03/22/18 04:30 04:46 05:00 Temperature Pulse Rate 110 H 102 H 109 H Pulse Rate [ From Monitor] Respiratory 18 24 27 H Rate Blood Pressure 210/140 99/53 99/53 O2 Sat by Pulse 99 95 94 Oximetry 03/22/18 03/22/18 03/22/18 05:16 05:30 05:46 Temperature Pulse Rate 114 H 96 H 105 H Pulse Rate [ From Monitor] Respiratory 38 H 26 H 24 Rate Blood Pressure 116/62 116/62 116/62 O2 Sat by Pulse 95 95 97 Oximetry 03/22/18 03/22/18 03/22/18 05:54 06:00 06:16 Temperature Pulse Rate 107 H 101 H 108 H Pulse Rate [ From Monitor] Respiratory 27 H 27 H Rate Blood Pressure 116/62 104/53 104/53 O2 Sat by Pulse 97 97 Oximetry 03/22/18 03/22/18 03/22/18 06:30 06:46 07:00 Temperature Pulse Rate 103 H 97 H 102 H Pulse Rate [ From Monitor] Respiratory 26 H 22 21 Rate Blood Pressure 104/53 104/53 115/67 O2 Sat by Pulse 98 99 99 Oximetry 03/22/18 03/22/18 03/22/18 07:16 07:30 07:46 Temperature Pulse Rate 90 105 H 103 H Pulse Rate [ From Monitor] Respiratory 19 20 19 Rate Blood Pressure 115/67 115/67 115/67 O2 Sat by Pulse 97 98 98 Oximetry 03/22/18 03/22/18 03/22/18 08:00 08:16 08:30 Temperature 98.7 F Pulse Rate 109 H 113 H 108 H Pulse Rate [ 113 H From Monitor] Respiratory 15 27 H 22 Rate Blood Pressure 115/67 109/60 109/60 O2 Sat by Pulse 96 97 Oximetry 03/22/18 03/22/18 03/22/18 08:46 09:00 09:16 Temperature Pulse Rate 102 H 117 H 108 H Pulse Rate [ From Monitor] Respiratory 23 20 13 Rate Blood Pressure 109/60 109/60 148/96 O2 Sat by Pulse 98 98 99 Oximetry 03/22/18 03/22/18 03/22/18 09:30 09:46 10:00 Temperature Pulse Rate 114 H 103 H 93 H Pulse Rate [ From Monitor] Respiratory 21 22 14 Rate Blood Pressure 148/96 148/96 148/96 O2 Sat by Pulse 99 98 98 Oximetry 03/22/18 03/22/18 03/22/18 10:16 10:30 10:41 Temperature Pulse Rate 98 H 91 H 95 H Pulse Rate [ From Monitor] Respiratory 22 16 Rate Blood Pressure 119/60 119/60 119/60 O2 Sat by Pulse 99 98 Oximetry Constitutional: no acute distress Eyes: non-icteric ENT: oropharynx moist, other (ETT in position) Neck: supple, JVD Ascultation: Bilateral: clear, diminished breath sounds, rales (mild), rhonchi (sporadic) Cardiovascular: irregular rhythm Gastrointestinal: normoactive bowel sounds, non-distended Integumentary: normal Extremities: no cyanosis Neurologic: normal mental status, non-focal exam, pupils equal and round, CN II- XII normal CBC and BMP: 03/22/18 04:13 03/22/18 04:13 ABG, PT/INR, D-dimer: ABG POC ABG pH 7.441 (7.35-7.45) 03/19/18 06:05 POC ABG pCO2 31.0 (35-45) L 03/19/18 06:05 POC ABG pO2 73 (80-105) L 03/19/18 06:05 POC ABG HCO3 21.1 03/19/18 06:05 POC ABG Total CO2 22 03/19/18 06:05 POC ABG O2 Sat 95 03/19/18 06:05 PT/INR, D-dimer PT 15.2 Sec. (12.2-14.9) H 03/15/18 19:47 INR 1.16 (0.87-1.13) H 03/15/18 19:47 D-Dimer 1826.96 ng/mlDDU (0-234) H 03/15/18 19:47 Abnormal lab findings: Abnormal Labs 03/15/18 03/15/18 03/15/18 19:47 19:47 19:47 WBC RBC Hgb RDW 15.6 H Greer % (Auto) 8.2 H Greer # Seg Neutrophils % Seg Neutrophils # PT 15.2 H INR 1.16 H D-Dimer 1826.96 H Heparin Anti-Xa Level POC ABG pH POC ABG pCO2 POC ABG pO2 Sodium Potassium Carbon Dioxide 21 L BUN Creatinine Glucose 124 H POC Glucose Calcium Total Creatine Kinase CK-MB (CK-2) C-Reactive Protein NT-Pro-B Natriuret Pep Total Protein 6.2 L Albumin 3.7 L Free T4 Vancomycin Trough 03/15/18 03/16/18 03/16/18 19:47 02:17 05:29 WBC RBC Hgb RDW Greer % (Auto) Greer # Seg Neutrophils % Seg Neutrophils # PT INR D-Dimer Heparin Anti-Xa Level POC ABG pH POC ABG pCO2 30.6 L POC ABG pO2 52 L Sodium Potassium Carbon Dioxide BUN Creatinine Glucose POC Glucose Calcium Total Creatine Kinase 232 H CK-MB (CK-2) 4.9 H C-Reactive Protein NT-Pro-B Natriuret Pep 2498 H Total Protein Albumin Free T4 Vancomycin Trough 03/16/18 03/16/18 03/16/18 05:57 14:38 14:38 WBC RBC Hgb RDW Greer % (Auto) Greer # Seg Neutrophils % Seg Neutrophils # PT INR D-Dimer Heparin Anti-Xa Level POC ABG pH 7.232 L POC ABG pCO2 45.1 H POC ABG pO2 Sodium Potassium Carbon Dioxide BUN Creatinine Glucose POC Glucose Calcium Total Creatine Kinase 402 H CK-MB (CK-2) 6.4 H C-Reactive Protein NT-Pro-B Natriuret Pep Total Protein Albumin Free T4 1.67 H Vancomycin Trough 03/16/18 03/17/18 03/17/18 23:25 03:27 17:22 WBC RBC Hgb RDW Greer % (Auto) Greer # Seg Neutrophils % Seg Neutrophils # PT INR D-Dimer Heparin Anti-Xa Level POC ABG pH 7.568 H POC ABG pCO2 23.4 L POC ABG pO2 78 L Sodium Potassium Carbon Dioxide BUN Creatinine Glucose POC Glucose 184 H Calcium Total Creatine Kinase CK-MB (CK-2) C-Reactive Protein 2.90 H NT-Pro-B Natriuret Pep Total Protein Albumin Free T4 Vancomycin Trough 03/18/18 03/19/18 03/19/18 05:28 04:16 04:16 WBC 18.3 H RBC Hgb RDW 16.3 H Greer % (Auto) 8.9 H Greer # 1.6 H Seg Neutrophils % 74.3 H Seg Neutrophils # 13.6 H PT INR D-Dimer Heparin Anti-Xa Level POC ABG pH POC ABG pCO2 33.3 L POC ABG pO2 Sodium 135 L Potassium 5.3 H D Carbon Dioxide 20 L BUN 21 H Creatinine Glucose 139 H POC Glucose Calcium 8.2 L Total Creatine Kinase CK-MB (CK-2) C-Reactive Protein NT-Pro-B Natriuret Pep Total Protein Albumin Free T4 Vancomycin Trough 03/19/18 03/19/18 03/19/18 04:16 06:05 15:18 WBC RBC Hgb RDW Greer % (Auto) Greer # Seg Neutrophils % Seg Neutrophils # PT INR D-Dimer Heparin Anti-Xa Level 0.28 L POC ABG pH POC ABG pCO2 31.0 L POC ABG pO2 73 L Sodium Potassium Carbon Dioxide BUN Creatinine Glucose POC Glucose Calcium Total Creatine Kinase CK-MB (CK-2) C-Reactive Protein NT-Pro-B Natriuret Pep Total Protein Albumin Free T4 Vancomycin Trough 20.4 H 03/20/18 03/20/18 03/20/18 11:42 12:23 16:14 WBC RBC Hgb RDW Greer % (Auto) Greer # Seg Neutrophils % Seg Neutrophils # PT INR D-Dimer Heparin Anti-Xa Level 0.23 L POC ABG pH POC ABG pCO2 POC ABG pO2 Sodium Potassium Carbon Dioxide BUN Creatinine Glucose 108 H POC Glucose 135 H Calcium 7.9 L Total Creatine Kinase CK-MB (CK-2) C-Reactive Protein NT-Pro-B Natriuret Pep Total Protein Albumin Free T4 Vancomycin Trough 03/20/18 03/22/18 03/22/18 22:52 04:13 04:13 WBC 13.5 H RBC 3.43 L Hgb 9.9 L RDW 16.1 H Greer % (Auto) 12.0 H Greer # 1.6 H Seg Neutrophils % Seg Neutrophils # 9.3 H PT INR D-Dimer Heparin Anti-Xa Level < 0.10 L POC ABG pH POC ABG pCO2 POC ABG pO2 Sodium Potassium 3.3 L Carbon Dioxide BUN Creatinine 0.6 L Glucose POC Glucose Calcium Total Creatine Kinase CK-MB (CK-2) C-Reactive Protein NT-Pro-B Natriuret Pep Total Protein Albumin Free T4 Vancomycin Trough
[2018-03-22] MEDS: CARDIZEM PO SCH (17:55)
[2018-03-22 18:22] VITALS: BP 104/62
[2018-03-22] MEDS ORDERED: ELIQUIS PO SCH (22:00)
--- NOTE | 2018-06-09 14:14 | Discharge Summary ---
Providers - Providers Date of Admission: 03/15/18 23:23 Date of discharge: 03/22/18 Attending physician: YAO ENGLAND 03/15/18 23:01 Consult to Physician [CONS] Routine Comment: Consulting Provider: WALI SHEETS Physician Instructions: Reason For Exam: Atrial fibrillation with RVR 03/16/18 04:41 Consult to Dietitian/Nutrition [CONS] Routine Physician Instructions: Reason For Exam: Reason for Consult: Evaluate nutritional intake 03/17/18 12:34 Consult to Physician [CONS] Routine Comment: Consulting Provider: JESSICA VENCES Physician Instructions: Reason For Exam: possible SBE per Cards/echo 03/19/18 19:19 Consult to Physician [CONS] Routine Comment: Consulting Provider: WALT CH Physician Instructions: Reason For Exam: Respiratory Failure 03/21/18 09:35 Physical Therapy Evaluation and Treat [CONS] Routine Comment: Reason For Exam: deconditioning Primary care physician: MIXER ATTENDANT Hospitalization Reason for admission: sob Condition: Serious Hospital course: 57 y/o female with history of COPD on home O2, heavy tobacco use, large pericardial effusion, normal coronary arteries, severe MR; admitted on 03/15/18 due to 2-day history of progressive shortness of breath. The patient was admitted with diagnosis of acute on chronic hypoxemic respiratory failure that was multifactorial secondary to pulmonary HTN, CHF, pericardial effusion/pleural effusion,?pneumonia. The patient was intubated and sedated and remained on mechanical ventilation. The patient also had other hospital complications that included new-onset atrial fibrillation with RVR and presumed mitral valve endocarditis. Patient was seen by cardiology, pulmonary and infectious disease in consultation. Echocardiogram completed on this hospitalization revealed EF 45-50%, LA severely dilated, severe MR, mod TR, mod pulm HTN with RVSP 51mmHg, large pericardial effusion seen adjacent to RV, no tamponade, questionable vegetation. Patient was treated with heparin drip and IV antibiotics. Blood cultures remain negative. ID felt the patient likely had presumed pneumonia from post-influenza pneumonia and was treated with Tamiflu along with antibiotics. During the hospital stay, patient self extubated and did well with no respiratory distress. The patient remained on high flow oxygen post extubation. Patient still required high flow oxygen 15 L at 40%. Cardiology felt that once the patient was clinically stable evaluation for possible surgical intervention was necessary. Heparin drip was discontinued and patient was started on Eliquis 5mg BID. Eventually, cardiology arranged for transfer to [facility] for further evaluation and follow-up of the above medical problems and comorbidities. Dedicated discharge time 35 minutes. Disposition: DC/TX-02 SHRT-TRM GEN HOSP IP Time spent for discharge: 35 - Discharge Diagnoses (1) Endocarditis Status: Acute (2) Acute HFrEF (heart failure with reduced ejection fraction) Status: Acute (3) Acute and chronic respiratory failure ([id number]) Status: Acute (4) Acute chest pain Status: Acute (5) Acute heart failure Status: Acute (6) Acute respiratory failure Status: Acute (7) Atrial fibrillation with rapid ventricular response Status: Acute (8) COPD (chronic obstructive pulmonary disease) with acute bronchitis Status: Acute (9) LV dysfunction Status: Acute (10) Mediastinal mass Status: Acute (11) Pericardial effusion Status: Acute (12) Mitral valve prolapse Status: Chronic (13) Paroxysmal atrial fibrillation with RVR Status: Chronic Core Measure Documentation - Palliative Care Palliative Care/ Comfort Measures: Not Applicable - Core Measures Any of the following diagnoses?: heart failure - Heart Failure Discharge Requirements DESTINEE/ARB for LVSD if EF <40%: Yes Beta herrera at discharge: Yes Exam - Constitutional Vitals: Temp Pulse Resp BP Pulse Ox 97.2 F L 108 H 21 104/62 99 03/22/18 16:00 03/22/18 18:16 03/22/18 18:16 03/22/18 18:16 03/22/18 18:16 General appearance: Present: no acute distress, well-nourished - EENT Eyes: Present: PERRL ENT: hearing intact, clear oral mucosa - Neck Neck: Present: supple, normal ROM - Respiratory Respiratory effort: normal Respiratory: bilateral: CTA - Cardiovascular Heart Sounds: Present: S1 & S2. Absent: rub, click - Extremities Extremities: pulses symmetrical, No edema Peripheral Pulses: within normal limits - Abdominal General gastrointestinal: Present: soft, non-tender, non-distended, normal bowel sounds Female genitourinary: Present: normal - Integumentary Integumentary: Present: clear, warm, dry - Musculoskeletal Musculoskeletal: gait normal, strength equal bilaterally - Psychiatric Psychiatric: appropriate mood/affect, intact judgment & insight - Neurologic Neurologic: CNII-XII intact, moves all extremities Plan Activity: advance as tolerated Weight Bearing Status: Weight Bear as Tolerated Follow up with: PRIMARY CARE, [Primary Care Provider] - 3-5 Days
== END 2018-03-22 19:15 | DRG 208 ==
LOC: ED 18:49 → CC1 23:23 → IMCU 03-20 17:13
PROVIDERS: ADMIT Internal Medicine; ATTEND Hospitalist
PROC: 5A1945Z Respiratory Ventilation, 24-96 Consecutive Hours (ICD-10-PCS; principal; 2018-03-16)
PROC: 0BH17EZ Insertion of Endotracheal Airway into Trachea, Via Natural or Artificial Opening (ICD-10-PCS; 2018-03-16)
PROC: 4A033R1 Measurement of Arterial Saturation, Peripheral, Percutaneous Approach (ICD-10-PCS; 2018-03-16)
PROC: 5A09357 Assistance with Respiratory Ventilation, Less than 24 Consecutive Hours, Continuous Positive Airway Pressure (ICD-10-PCS; 2018-03-19)
DX: J96.21 Acute and chronic respiratory failure with hypoxia (principal); J18.9 Pneumonia, unspecified organism; I50.33 Acute on chronic diastolic (congestive) heart failure; J96.22 Acute and chronic respiratory failure with hypercapnia; I48.91 Unspecified atrial fibrillation; K21.9 Gastro-esophageal reflux disease without esophagitis; J44.9 Chronic obstructive pulmonary disease, unspecified; J45.909 Unspecified asthma, uncomplicated; Z99.81 Dependence on supplemental oxygen; F17.210 Nicotine dependence, cigarettes, uncomplicated; F41.9 Anxiety disorder, unspecified; Z88.6 Allergy status to analgesic agent; I34.0 Nonrheumatic mitral (valve) insufficiency; I25.10 Atherosclerotic heart disease of native coronary artery without angina pectoris; I27.20 Pulmonary hypertension, unspecified
CPT/HCPCS: 36415; 36600; 71045; 71275; 74018; 80048; 80053; 80202; 82550; 82553; 82803; 82962; 83735; 83880; 84439; 84443; 84478; 84484; 85014; 85018; 85025; 85049; 85379; 85520; 85610; 85652; 85730; 86140; 87040; 87070; 87116; 87205; 87400; 93005; 93010; 93306; 94003; 94640; 94660; 94760; 96361; 96374; 96375; 96376; G0378; J0282; J0456; J0696; J1160; J1644; J1940; J2060; J2405; J2704; J2930; J3370; J7030; J7040; J7050; J7060; J7512; Q9967

== ENCOUNTER 2018-04-25 05:44 | Inpatient (IN) | payer MEDICARE ==
[2018-04-25] MEDS ORDERED: CARDIZEM/D5W 100MG/100ML 100 MG/100 ML BAG IV ONE (06:37)
--- NOTE | 2018-04-25 06:42 | Emergency Department Report ---
HPI - General Chief Complaint: Chest Pain Time Seen by Provider: 04/25/18 06:24 - HPI HPI: Room 8 The patient is a 57-year-old female presented with a chief complaint palpitations. The patient states for the past 2 weeks she has had intermittent substernal chest pain described as sharp and dull in nature associated with shortness of breath and nausea. Patient states rinsing Time she's also had bilateral lower extremity edema. This morning at 03:00 the patient states she started having palpitations. Location: Chest Duration: [See above] Quality: [See above] Severity: [See above] Modifying factors: [see above] Context: [see above] Mode of transportation: [not driving] ED Past Medical Hx - Past Medical History Previous Medical History?: Yes Hx GERD: Yes Hx Asthma: Yes Hx COPD: Yes (O2-2lpm continuously) Additional medical history: gall stones, fibroids, MVP, myomectomy - Surgical History Past Surgical History?: Yes Additional Surgical History: fibroid removal - Family History Family history: no significant - Social History Smoking Status: Current Every Day Smoker (3 cigarettes daily) Substance Use Type: None (denies illicit drug use) - Medications Home Medications: Home Medications Medication Instructions Recorded Confirmed Last Taken Type ALPRAZolam [Xanax TAB] 0.25 mg PO TID PRN 04/25/18 04/25/18 Unknown History Apixaban [Eliquis] 5 mg PO Q12HR 04/25/18 04/25/18 Unknown History Furosemide [Lasix TAB] 40 mg PO QDAY 04/25/18 04/25/18 Unknown History Metoprolol [Lopressor] 25 mg PO BID 04/25/18 04/25/18 Unknown History Potassium Chloride [K-Dur] 20 meq PO QDAY 04/25/18 04/25/18 Unknown History ED Review of Systems ROS: Stated complaint: CHEST PAIN Other details as noted in HPI Constitutional: denies: diaphoresis Eyes: denies: eye pain ENT: denies: throat pain Respiratory: shortness of breath Cardiovascular: chest pain, palpitations Endocrine: no symptoms reported Gastrointestinal: nausea. denies: vomiting Genitourinary: denies: dysuria Neurological: denies: headache Physical Exam - Physical Exam Vital Signs: Vital Signs 04/25/18 04/25/18 05:57 06:16 Temperature 97.9 F 97.6 F Pulse Rate 154 H 145 H Respiratory 18 30 H Rate Blood Pressure 97/72 Blood Pressure 101/71 [Left] O2 Sat by Pulse 100 100 Oximetry Physical Exam: GENERAL: The patient is well-developed well-nourished female sitting on stretcher not appearing to be in acute distress. [] HEENT: Normocephalic. Atraumatic. Extraocular motions are intact. Patient has moist mucous membranes. NECK: Supple. Trachea midline CHEST/LUNGS: Clear to auscultation. There is no respiratory distress noted. HEART/CARDIOVASCULAR: Irregularly irregular. There is tachycardia. There is no gallop rub or murmur. ABDOMEN: Abdomen is soft, with mild periumbilical discomfort. Easily reducible umbilical hernia. Patient has normal bowel sounds. There is no abdominal distention. SKIN: There is no rash. There is 1+ bilateral lower extremity pitting edema. There is no diaphoresis. NEURO: The patient is awake, alert, and oriented. The patient is cooperative. The patient has normal speech MUSCULOSKELETAL: There is no evidence of acute injury. ED Course Vital Signs 04/25/18 04/25/18 05:57 06:16 Temperature 97.9 F 97.6 F Pulse Rate 154 H 145 H Respiratory 18 30 H Rate Blood Pressure 97/72 Blood Pressure 101/71 [Left] O2 Sat by Pulse 100 100 Oximetry ED Medical Decision Making - Lab Data Result diagrams: 04/25/18 06:58 04/25/18 06:58 Laboratory Tests 04/25/18 04/25/18 04/25/18 06:58 06:58 06:58 WBC 8.5 RBC 4.36 Hgb 12.2 Hct 36.3 MCV 83 MCH 28 MCHC 34 RDW 16.6 H Plt Count 236 Lymph % (Auto) 33.0 [place] % (Auto) 9.9 H Eos % (Auto) 0.9 Baso % (Auto) 2.1 H Lymph # 2.8 [place] # 0.8 Eos # 0.1 Baso # 0.2 H Seg Neutrophils % 54.1 Seg Neutrophils # 4.6 Sodium 135 L Potassium 3.4 L Chloride 95.2 L Carbon Dioxide 22 Anion Gap 21 BUN 18 H Creatinine 1.0 Estimated GFR > 60 BUN/Creatinine Ratio 18 Glucose 126 H Calcium 9.0 Magnesium 1.80 Total Creatine Kinase 82 CK-MB (CK-2) 1.6 CK-MB (CK-2) Rel Index 1.9 Troponin T < 0.010 NT-Pro-B Natriuret Pep TSH Free T4 04/25/18 04/25/18 06:58 06:58 WBC RBC Hgb Hct MCV MCH MCHC RDW Plt Count Lymph % (Auto) [place] % (Auto) Eos % (Auto) Baso % (Auto) Lymph # [place] # Eos # Baso # Seg Neutrophils % Seg Neutrophils # Sodium Potassium Chloride Carbon Dioxide Anion Gap BUN Creatinine Estimated GFR BUN/Creatinine Ratio Glucose Calcium Magnesium Total Creatine Kinase CK-MB (CK-2) CK-MB (CK-2) Rel Index Troponin T NT-Pro-B Natriuret Pep 5335 H TSH 3.070 Free T4 2.31 H - EKG Data -: EKG Interpreted by Me Rate: tachycardia (120 bpm) - EKG Data When compared to previous EKG there are: changes noted Interpretation: other (atrial fibrillation with a rapid ventricular response) - Radiology Data Radiology results: report reviewed (chest x-ray), image reviewed (chest x-ray) interpreted by me: Chest [id number] [facility] [address] [place] [address] XRay Report Signed Patient: KAYLEE RAMEY MR#: [id number] : 1960 Acct:[id number] Age/Sex: 57 / F ADM Date: 04/25/18 Loc: ED Attending Dr: Ordering Physician: ELIZABETH GIL MD Date of Service: 04/25/18 Procedure(s): XR chest 1V ap Accession Number(s): [id number] cc: ELIZABETH GIL MD Fluoro Time In Minutes: FINAL REPORT EXAM: XR CHEST 1V AP HISTORY: chest pain TECHNIQUE: AP portable view(s) of the chest obtained. PRIORS: 03/20/2018, CT 03/16/2018 FINDINGS: No mediastinal shift. Enlarged cardiac silhouette is similar to prior. Right middle lobe opacity silhouettes the right heart border. Ill-defined bibasilar opacities and blunting of both costophrenic angles. No pneumothorax or acute skeletal finding. IMPRESSION: Enlarged cardiac silhouette is similar to prior. Right middle lobe bibasilar opacities and pleural effusions may be infectious and/or due to cardiac dysfunction. Transcribed By: ANNMARIE Dictated By: SIMI CARNES MD Electronically Authenticated By: SIMI CARNES MD Signed Date/Time: 04/25/18709 DD/ 8 TD/TT: 04/25/18708 - Differential Diagnosis A. fib with RVR, ACS, pericarditis, GERD Critical care attestation.: If time is entered above; I have spent that time in minutes in the direct care of this critically ill patient, excluding procedure time. ED Disposition Clinical Impression: Atrial fibrillation with rapid ventricular response Disposition: OP ADMIT IP TO THIS HOSP Is pt being admited?: Yes Does the pt Need Aspirin: Yes Condition: Fair Time of Disposition: 08:17 (hospitalist paged)
[2018-04-25] MEDS ORDERED: ASPIRIN PO ONE (06:44)
--- NOTE | 2018-04-25 07:10 | XRay Report ---
FINAL REPORT EXAM: XR CHEST 1V AP HISTORY: chest pain TECHNIQUE: AP portable view(s) of the chest obtained. PRIORS: 03/20/2018, CT 03/16/2018 FINDINGS: No mediastinal shift. Enlarged cardiac silhouette is similar to prior. Right middle lobe opacity silh ouettes the right heart border. Ill-defined bibasilar opacities and blunting of both costophrenic ang les. No pneumothorax or acute skeletal finding. IMPRESSION: Enlarged cardiac silhouette is similar to prior. Right middle lobe bibasilar opacities and pleural effusions may be infectious and/or due to cardiac d ysfunction.
[2018-04-25 07:22] LABS: Basophils # (Auto) 0.2 K/mm3 (0.0-0.1); Basophils % (Auto) 2.1 % (0.0-1.8); Eosinophils # (Auto) 0.1 K/mm3 (0.0-0.4); Eosinophils % (Auto) 0.9 % (0.0-4.3); Hematocrit 36.3 % (30.3-42.9); Hemoglobin 12.2 gm/dl (10.1-14.3); Lymphocytes # (Auto) 2.8 K/mm3 (1.2-5.4); Mean Corpuscular HGB Conc 34 % (30-34); Mean Corpuscular Volume 83 fl (79-97); Monocytes # (Auto) 0.8 K/mm3 (0.0-0.8); Monocytes % (Auto) 9.9 % (0.0-7.3); Platelet Count 236 K/mm3 (140-440); Red Blood Count 4.36 M/mm3 (3.65-5.03); Red Cell Distribution Width 16.6 % (13.2-15.2)
[2018-04-25 07:44] LABS: Creatine Kinase MB 1.6 ng/mL (0.0-4.0)
[2018-04-25 07:45] LABS: BUN/Creatinine Ratio 18; Blood Urea Nitrogen 18 mg/dL (7-17); Hemolysis Index 9
[2018-04-25] MEDS ORDERED: CORDARONE 150 MG in D5W 97 ML IV ONE (07:48)
[2018-04-25 08:07] LABS: Free T4 (Free Thyroxine) 2.31 ng/dL (0.76-1.46)
[2018-04-25] MEDS: CORDARONE 900 MG in D5W 482 ML IV SCH (08:50)
[2018-04-25] MEDS ORDERED: APIXABAN 5 MG PO SCH (10:15)
--- NOTE | 2018-04-25 10:20 | History and Physical Report ---
History of Present Illness Date of examination: 04/25/18 Chief complaint: Palpitation History of present illness: 57 year old -La[place] female with past medical history significant for mi tral valve prolapse, A. fib, systolic CHF, panic attack, GERD, cholecystitis, hernia presented to the emergency department for complaints of palpitation. Patient says chest palpitation for the last 1 month. Patient subsequently complaining epigastric burning pain which he attributed to her GERD. Patient is also complaining shortness of breath. Patient is admitted a month ago and was treated for A.fib and CHF. [facility]. Patient was in A. fib with RVR, started on amiodarone drip but couldn't start Cardizem drip because of low blood pressure. REVIEW OF SYSTEMS: GENERAL: no weight change, no fatigue, no fever HEAD: no head ache EYES: no blurry vision, no acute visual loss EARS: no hearing loss, no discharge, no earache NOSE: no stuffiness, no sneezing, no discharge MOUTH, THROAT AND NECK: no bleeding gums, no sore throat, no swollen neck CARDIAC: As stated in the HPI. RESPIRATORY: As stated in the HPI. GI: no decreased appetite, no nausea, no vomiting, no dysphagia, no diarrhea, no constipation, no abdominal pain URINARY: no change in frequency, no urgency, no polyuria, no hematuria, no incontinence MUSCULOSKELETAL: no muscle weakness, no pain, no joint stiffness NEUROLOGIC: no loss of sensation/numbness, no tingling, no tremors, no weakness/paralysis HEMATOLOGIC: no anemia, no easy bruising SKIN: no rashes ENDOCRINE: no heat/cold intolerance, no polyuria, no polydipsia, no thyroid problems, no diabetes PSYCHIATRIC: no anxiety, no depression, no suicidal ideations Past History Past Medical History: atrial fib, heart failure Past Surgical History: No surgical history Social history: smoking (decreased to 3 cigarettes a day), full code. denies: alcohol abuse, prescription drug abuse, IV drug use Family history: no significant family history Medications and Allergies Allergies Allergy/AdvReac Type Severity Reaction Status Date / Time morphine Allergy Rash Verified 02/27/18 12:48 Home Medications Medication Instructions Recorded Confirmed Last Taken Type ALPRAZolam [Xanax TAB] 0.25 mg PO TID PRN 04/25/18 04/25/18 Unknown History Apixaban [Eliquis] 5 mg PO Q12HR 04/25/18 04/25/18 Unknown History Furosemide [Lasix TAB] 40 mg PO QDAY 04/25/18 04/25/18 Unknown History Metoprolol [Lopressor] 25 mg PO BID 04/25/18 04/25/18 Unknown History Potassium Chloride [K-Dur] 20 meq PO QDAY 04/25/18 04/25/18 Unknown History Active Meds: Active Medications Alprazolam (Xanax) 0.25 mg PO TID PRN PRN Reason: Anxiety Amiodarone HCl 900 mg/ (Dextrose) 500 mls @ 33.33 mls/hr IV DIRECT NEL; Protocol Last Admin: 04/25/18 08:50 Dose: 1 mg/min, 33.33 mls/hr Documented by: Miscellaneous Medication (Apixaban [Eliquis]) 5 mg PO Q12HR NEL Exam - Physical Exam Narrative exam: Not in cardiopulmonary distress. The patient appeared well nourished and normally developed. Vital signs as documented. Head exam is unremarkable. No scleral icterus . Neck is without jugular venous distension, thyromegaly, or carotid bruits. Lungs are clear to auscultation. Cardiac exam reveals irregularly irregular rate and Rhythm. Tachycardic. Abdominal exam reveals normal bowel sounds, no masses, no organomegaly and no aortic enlargement. Extremities are nonedematous and both femoral and pedal pulses are normal. [employer]OR: Alert and oriented 3. No focal weakness. - Constitutional Vitals: Temp Pulse Resp BP Pulse Ox 97.6 F 135 H 16 85/63 96 04/25/18 06:16 04/25/18 08:00 04/25/18 08:00 04/25/18 08:00 04/25/18 08:00 Results - Labs CBC & Chem 7: 04/25/18 06:58 04/25/18 06:58 Labs: Laboratory Last Values WBC 8.5 K/mm3 (4.5-11.0) 04/25/18 06:58 RBC 4.36 M/mm3 (3.65-5.03) 04/25/18 06:58 Hgb 12.2 gm/dl (10.1-14.3) 04/25/18 06:58 Hct 36.3 % (30.3-42.9) 04/25/18 06:58 MCV 83 fl (79-97) 04/25/18 06:58 MCH 28 pg (28-32) 04/25/18 06:58 MCHC 34 % (30-34) 04/25/18 06:58 RDW 16.6 % (13.2-15.2) H 04/25/18 06:58 Plt Count 236 K/mm3 (140-440) 04/25/18 06:58 Lymph % (Auto) 33.0 % (13.4-35.0) 04/25/18 06:58 [place] % (Auto) 9.9 % (0.0-7.3) H 04/25/18 06:58 Eos % (Auto) 0.9 % (0.0-4.3) 04/25/18 06:58 Baso % (Auto) 2.1 % (0.0-1.8) H 04/25/18 06:58 Lymph # 2.8 K/mm3 (1.2-5.4) 04/25/18 06:58 [place] # 0.8 K/mm3 (0.0-0.8) 04/25/18 06:58 Eos # 0.1 K/mm3 (0.0-0.4) 04/25/18 06:58 Baso # 0.2 K/mm3 (0.0-0.1) H 04/25/18 06:58 Seg Neutrophils % 54.1 % (40.0-70.0) 04/25/18 06:58 Seg Neutrophils # 4.6 K/mm3 (1.8-7.7) 04/25/18 06:58 Sodium 135 mmol/L (137-145) L 04/25/18 06:58 Potassium 3.4 mmol/L (3.6-5.0) L 04/25/18 06:58 Chloride 95.2 mmol/L (98-107) L 04/25/18 06:58 Carbon Dioxide 22 mmol/L (22-30) 04/25/18 06:58 Anion Gap 21 mmol/L 04/25/18 06:58 BUN 18 mg/dL (7-17) H 04/25/18 06:58 Creatinine 1.0 mg/dL (0.7-1.2) 04/25/18 06:58 Estimated GFR > 60 ml/min 04/25/18 06:58 BUN/Creatinine Ratio 18 % 04/25/18 06:58 Glucose 126 mg/dL (65-100) H 04/25/18 06:58 Calcium 9.0 mg/dL (8.4-10.2) 04/25/18 06:58 Magnesium 1.80 mg/dL (1.7-2.3) 04/25/18 06:58 Total Creatine Kinase 82 units/L (30-135) 04/25/18 06:58 CK-MB (CK-2) 1.6 ng/mL (0.0-4.0) 04/25/18 06:58 CK-MB (CK-2) Rel Index 1.9 (0-4) 04/25/18 06:58 Troponin T < 0.010 ng/mL (0.00-0.029) 04/25/18 06:58 NT-Pro-B Natriuret Pep 5335 pg/mL (0-900) H 04/25/18 06:58 TSH 3.070 mlU/mL (0.270-4.200) 04/25/18 06:58 Free T4 2.31 ng/dL (0.76-1.46) H 04/25/18 06:58 Assessment and Plan Assessment and plan: A fib with RVR, with marginally low blood pressure - Patient is on amiodarone drip - Couldn't start Cardizem drip or beta herrera because of low blood pressure - Cardiology consulted - Continue eliquis Systolic CHF - Patient doesn't look like and exacerbation - Holdd Lasix until blood pressures normalized GERD - We'll start the patient on Protonix Gallstones, hernia, ?cholecystistis - will placed surgical evaluation Panic attack - Continue Xanax DVT prophylaxis - On eliquis Advance Directives: Yes VTE prophylaxis?: Chemical Plan of care discussed with patient/family: Yes
[2018-04-25] MEDS ORDERED: CARDIZEM/D5W 100MG/100ML 100 MG/100 ML BAG IV SCH (11:00)
[2018-04-25] MEDS ORDERED: LOPRESSOR PO SCH (11:00)
[2018-04-25] MEDS ORDERED: LASIX PO SCH (11:00)
[2018-04-25] MEDS: ELIQUIS PO SCH ×2 (12:11→23:19)
[2018-04-25] MEDS: PROTONIX PO SCH (12:11)
[2018-04-25] MEDS: XANAX PO PRN (12:11)
--- NOTE | 2018-04-25 13:12 | Consultation ---
History of Present Illness Consult date: 04/25/18 Reason for consult: dyspnea, chest pain, other (A. fib with fast parenteral response, COPD panic disorder) History of present illness: Called to evaluate for ICU monitoring, case of a 57 year old -[place] female with past medical history significant for mitral valve prolapse, A. fib, systolic CHF, panic attack, GERD, cholecystitis, hernia presented to the emergency department for complaints of palpitation. Patient says chest palpit ation for the last 1 month. Also reported that she started with shortness of breath mostly dyspnea on exertion and orthopnea 2 weeks ago. She has A. fib and heart failure, follows with a traffic attendant at [place]. Also told to have COPD, follows with Dr. Kirkpatrick. She is an active smoker of half pack cigarettes per day. Per notes, also "Patient subsequently complaining epigastric burning pain which he attributed to her GERD. Patient is admitted a month ago and was treated for A.fib and CHF. Was evaluated by [facility] on her previous admissions. Patient was in A. fib with RVR, started on amiodarone drip but couldn't start Cardizem drip because of low blood pressure". Currently, very anxious but has no shortness of breath or chest pain. She reports no wheezing or hemoptysis. Past History Past Medical History: atrial fib, heart failure Past Surgical History: No surgical history Social history: smoking (decreased to 3 cigarettes a day), full code. denies: alcohol abuse, prescription drug abuse, IV drug use Family history: no significant family history Medications and Allergies Allergies Allergy/AdvReac Type Severity Reaction Status Date / Time morphine Allergy Rash Verified 02/27/18 12:48 Home Medications Medication Instructions Recorded Confirmed Last Taken Type ALPRAZolam [Xanax TAB] 0.25 mg PO TID PRN 04/25/18 04/25/18 Unknown History Apixaban [Eliquis] 5 mg PO Q12HR 04/25/18 04/25/18 Unknown History Furosemide [Lasix TAB] 40 mg PO QDAY 04/25/18 04/25/18 Unknown History Metoprolol [Lopressor] 25 mg PO BID 04/25/18 04/25/18 Unknown History Potassium Chloride [K-Dur] 20 meq PO QDAY 04/25/18 04/25/18 Unknown History Active Meds: Active Medications Alprazolam (Xanax) 0.25 mg PO TID PRN PRN Reason: Anxiety Last Admin: 04/25/18 12:11 Dose: 0.25 mg Documented by: Apixaban (Eliquis) 5 mg PO Q12HR NEL Last Admin: 04/25/18 12:11 Dose: 5 mg Documented by: Amiodarone HCl 900 mg/ (Dextrose) 500 mls @ 33.33 mls/hr IV DIRECT NEL; Protocol Last Admin: 04/25/18 08:50 Dose: 1 mg/min, 33.33 mls/hr Documented by: Pantoprazole Sodium (Protonix) 40 mg PO DAILY NEL Last Admin: 04/25/18 12:11 Dose: 40 mg Documented by: Review of Systems All systems: negative (anxiety, reportedly panic attacks) Constitutional: fatigue Physical Examination Vital signs: Vital Signs Temp Pulse Resp BP Pulse Ox 97.9 F 154 H 18 97/72 100 04/25/18 05:57 04/25/18 05:57 04/25/18 05:57 04/25/18 05:57 04/25/18 05:57 General appearance: no acute distress, alert Eyes: non-icteric ENT: oropharynx moist Neck: supple, no JVD Ascultation: Bilateral: clear, diminished breath sounds Cardiovascular: irregular rhythm Gastrointestinal: normoactive bowel sounds, non-distended Integumentary: normal Extremities: no cyanosis, edema (mild or trace, pretibial) Musculoskeletal: no deformities normal mental status, non-focal exam, CN II-XII normal mood appropriate Anxious? Results - Laboratory Findings CBC and BMP: 04/25/18 06:58 04/25/18 06:58 Abnormal lab findings: Abnormal Labs 04/25/18 04/25/18 04/25/18 06:58 06:58 06:58 RDW 16.6 H [place] % (Auto) 9.9 H Baso % (Auto) 2.1 H Baso # 0.2 H Sodium 135 L Potassium 3.4 L Chloride 95.2 L BUN 18 H Glucose 126 H NT-Pro-B Natriuret Pep Free T4 2.31 H 04/25/18 06:58 RDW [place] % (Auto) Baso % (Auto) Baso # Sodium Potassium Chloride BUN Glucose NT-Pro-B Natriuret Pep 5335 H Free T4 Assessment and Plan Chest pain negative cardiac markers Afib with fast ventricular response Hypertension. Currently does not appear to be symptomatic. MAP holding in the 60s Congestive heart failure, last EF per echo 45% Pulmonary hypertension group II, per chart notes, secondary to CHF Hypokalemia Anxiety/panic disorder Tobacco abuse Recommendations Monitor hemodynamics, intake and output Potassium replacement, K rider 40 mEq OAC's per IMS Cardizem versus other rhythm control agents per cardiology Albuterol 1.25- 2.5 milligram nebulizations every 6 hours when necessary for dyspnea or wheezing Solu-Medrol 40-60 mg IV every 6-8 hours if wheezing Oxygen support via nasal cannula or mask to maintain oximetry over 92% DVT prophylaxis Discussed with patient in detail. All questions answered. Critical care time was 31 minutes of [id number] evaluation and coordination of care
--- NOTE | 2018-04-25 13:48 | Consultation ---
History of Present Illness Consult date: 04/25/18 Reason for consult: abdominal pain Requesting physician: MEÑO GODFERY Chief complaint: abdominal pain - History of present illness History of present illness: 57yo F was well-known to our service due to her gallbladder history. She was originally being managed by another surgeon. Due to a variety of issues, she ultimately established care with us. We had been trying to obtain cardiac clearance prior to scheduling her cholecystectomy. However, she presented to the emergency room with complaints of throat swelling and chest tightness. We are being asked to see her for her abdominal pain. She continues to have very significant pain in the right upper quadrant as well as at the umbilicus. Past History Past Medical History: atrial fib, GERD, heart failure, other (MVP, panic attacks, anxiety) Past Surgical History: No surgical history Social history: smoking (decreased to 3 cigarettes a day), full code. denies: alcohol abuse, prescription drug abuse, IV drug use Family history: no significant family history Medications and Allergies Allergies Allergy/AdvReac Type Severity Reaction Status Date / Time morphine Allergy Rash Verified 02/27/18 12:48 Home Medications Medication Instructions Recorded Confirmed Last Taken Type ALPRAZolam [Xanax TAB] 0.25 mg PO TID PRN 04/25/18 04/25/18 Unknown History Apixaban [Eliquis] 5 mg PO Q12HR 04/25/18 04/25/18 Unknown History Furosemide [Lasix TAB] 40 mg PO QDAY 04/25/18 04/25/18 Unknown History Metoprolol [Lopressor] 25 mg PO BID 04/25/18 04/25/18 Unknown History Potassium Chloride [K-Dur] 20 meq PO QDAY 04/25/18 04/25/18 Unknown History Active Meds: Active Medications Albuterol (Proventil) 1.25 mg IH Q6HRT PRN PRN Reason: Shortness Of Breath Alprazolam (Xanax) 0.25 mg PO TID PRN PRN Reason: Anxiety Last Admin: 04/25/18 12:11 Dose: 0.25 mg Documented by: Apixaban (Eliquis) 5 mg PO Q12HR NEL Last Admin: 04/25/18 12:11 Dose: 5 mg Documented by: Amiodarone HCl 900 mg/ (Dextrose) 500 mls @ 33.33 mls/hr IV DIRECT ENL; Protocol Last Admin: 04/25/18 08:50 Dose: 1 mg/min, 33.33 mls/hr Documented by: Pantoprazole Sodium (Protonix) 40 mg PO DAILY NEL Last Admin: 04/25/18 12:11 Dose: 40 mg Documented by: Review of Systems - Constitutional chronic pain, no fever, no chills - Cardiovascular chest pain, palpitations, shortness of breath - Respiratory no cough - Gastrointestinal abdominal pain, no nausea, no vomiting - Genitourinary Genitourinary: no dysuria - Muskuloskeletal no low back pain - Integumentary no pruritis, no redness, no sores, no wounds, no jaundice Exam Vital Signs Temp Pulse Resp BP Pulse Ox 97.9 F 154 H 18 97/72 100 04/25/18 05:57 04/25/18 05:57 04/25/18 05:57 04/25/18 05:57 04/25/18 05:57 - General physical appearance Positive: no distress, other (appears uncomfortable) - Eyes Positive: normal occular movement. Negative: icteric - Respiratory Positive: normal expansion, normal respiratory effort, clear to auscultation - Cardiovascular Rhythm: irregularly irregular - Abdomen Abdomen: Present: soft, tender (in RUQ and umbilical area), bowel sounds hypoactive. Absent: distended, masses, guarding, rigid, wound, surgical scars Hernia: umbilical (moderate sized. tender to palpation. unable to easily reduce) - Integumentary no rash, no growths, no abnormal pigmentation - Neurologic Neurologic: alert and oriented to time, place and person, motor strength and sensation are grossly intact - Psychiatric Psychiatric: appropriate mood/affect, intact judgment & insight Results - Labs 04/25/18 06:58 04/25/18 06:58 Abnormal lab results 04/25/18 04/25/18 04/25/18 Range/Units 06:58 06:58 06:58 RDW 16.6 H (13.2-15.2) % [place] % (Auto) 9.9 H (0.0-7.3) % Baso % (Auto) 2.1 H (0.0-1.8) % Baso # 0.2 H (0.0-0.1) K/mm3 Sodium 135 L (137-145) mmol/L Potassium 3.4 L (3.6-5.0) mmol/L Chloride 95.2 L (98-107) mmol/L BUN 18 H (7-17) mg/dL Glucose 126 H (65-100) mg/dL NT-Pro-B Natriuret Pep (0-900) pg/mL Free T4 2.31 H (0.76-1.46) ng/dL 04/25/18 Range/Units 06:58 RDW (13.2-15.2) % [place] % (Auto) (0.0-7.3) % Baso % (Auto) (0.0-1.8) % Baso # (0.0-0.1) K/mm3 Sodium (137-145) mmol/L Potassium (3.6-5.0) mmol/L Chloride (98-107) mmol/L BUN (7-17) mg/dL Glucose (65-100) mg/dL NT-Pro-B Natriuret Pep 5335 H (0-900) pg/mL Free T4 (0.76-1.46) ng/dL Diabetes panel 04/25/18 Range/Units 06:58 Sodium 135 L (137-145) mmol/L Potassium 3.4 L (3.6-5.0) mmol/L Chloride 95.2 L (98-107) mmol/L Carbon Dioxide 22 (22-30) mmol/L BUN 18 H (7-17) mg/dL Creatinine 1.0 (0.7-1.2) mg/dL Glucose 126 H (65-100) mg/dL Calcium 9.0 (8.4-10.2) mg/dL Thyroid panel 04/25/18 Range/Units 06:58 TSH 3.070 (0.270-4.200) mlU/mL Calcium panel 04/25/18 Range/Units 06:58 Calcium 9.0 (8.4-10.2) mg/dL Pituitary panel 04/25/18 04/25/18 Range/Units 06:58 06:58 Sodium 135 L (137-145) mmol/L Potassium 3.4 L (3.6-5.0) mmol/L Chloride 95.2 L (98-107) mmol/L Carbon Dioxide 22 (22-30) mmol/L BUN 18 H (7-17) mg/dL Creatinine 1.0 (0.7-1.2) mg/dL Glucose 126 H (65-100) mg/dL Calcium 9.0 (8.4-10.2) mg/dL TSH 3.070 (0.270-4.200) mlU/mL Adrenal panel 04/25/18 Range/Units 06:58 Sodium 135 L (137-145) mmol/L Potassium 3.4 L (3.6-5.0) mmol/L Chloride 95.2 L (98-107) mmol/L Carbon Dioxide 22 (22-30) mmol/L BUN 18 H (7-17) mg/dL Creatinine 1.0 (0.7-1.2) mg/dL Glucose 126 H (65-100) mg/dL Calcium 9.0 (8.4-10.2) mg/dL - Imaging CT scan - abdomen: report reviewed, image reviewed CT scan - pelvis: report reviewed, image reviewed (these are previous studies) US - abdomen: report reviewed, image reviewed (these are previous studies) Assessment and Plan - Patient Problems (1) Cholecystitis Current Visit: Yes Status: Acute Plan to address problem: Pt stable. This has been an ongoing issue for her. This may be our opportunity to take care of it. Once her cardio pulmonary situation is stable, we will ask both cardiology and pulmonary to do a surgical pre-op assessment and risk stratification. We have already discussed the patient is at higher risk for surgery. The risk stratification will help us further in our discussion in preparation for any potential complication after surgery. Patient understands that she may have a cardiac event around the time of surgery or may have respiratory failure which may ultimately require tracheostomy placement. If possible, I would like to take care of the surgery during this admission. She will need her Eliquis held for 5 days prior to surgery being performed. For a complete record, I will ask that we get the HIDA to scan results from [facility]. LFTs in AM. Will follow along. Please call with any questions. time=45min (2) Umbilical hernia without mention of obstruction or gangrene Current Visit: Yes Status: Acute Plan to address problem: Pt stable. Patient is very symptomatic from this moderate sized hernia. On her last CT, there is omentum protruding through the fascial defect. I was unable to reduce it due to her discomfort. There are no signs of any compromise of the umbilical skin at this time. This is something that we will repair at the time of her cholecystectomy.
[2018-04-25] MEDS ORDERED: D5W/0.45% NACL/KCL 20 MEQ 20 MEQ/1,000 ML BAG IV SCH (23:00)
[2018-04-26 05:27] LABS: Basophils # (Auto) 0.1 K/mm3 (0.0-0.1); Basophils % (Auto) 0.7 % (0.0-1.8); Eosinophils % (Auto) 0.3 % (0.0-4.3); Hematocrit 33.7 % (30.3-42.9); Hemoglobin 11.4 gm/dl (10.1-14.3); Lymphocytes % (Auto) 29.3 % (13.4-35.0); Mean Corpuscular HGB Conc 34 % (30-34); Mean Corpuscular Volume 84 fl (79-97); Monocytes % (Auto) 9.7 % (0.0-7.3); Platelet Count 198 K/mm3 (140-440); Red Cell Distribution Width 16.6 % (13.2-15.2)
[2018-04-26] MEDS: CORDARONE 900 MG in D5W 482 ML IV SCH (05:42)
[2018-04-26 05:51] LABS: Albumin 3.3 g/dL (3.9-5); Bilirubin,Direct 1.2 mg/dL (0-0.2)
--- NOTE | 2018-04-26 09:19 | Progress Note ---
Assessment and Plan - Patient Problems (1) Cholecystitis Current Visit: Yes Status: Acute Plan to address problem: Pt stable. Chronic cholecystitis. She is feeling better today. Unexpectedly, she has a marked elevation in her total bilirubin which was normal in March. Although much more than expected, I wonder if it is related to hepatic congest ion secondary to heart failure. At this point, as she is feeling better, I would repeat the labs tomorrow. If it remains elevated or is rising, then I would get in MRCP. If there is evidence of blockage, then I would consult G.I. Dr. Pierre has seen her in the past. (2) Umbilical hernia without mention of obstruction or gangrene Current Visit: Yes Status: Acute Plan to address problem: Pt stable. Patient is symptomatic from this moderate sized hernia. There are no signs of any compromise of the umbilical skin at this time. This is something that we will repair at the time of her cholecystectomy. Subjective Date of service: 04/26/18 Patient Reports: Positive: feels better, pain is less. Negative: nausea, vomiting Objective Vital Signs - 12hr 04/25/18 04/25/18 04/25/18 22:00 22:01 23:00 Temperature Pulse Rate 92 H 87 91 H Pulse Rate [ From Monitor] Respiratory 36 H 24 Rate Blood Pressure 105/67 O2 Sat by Pulse 93 100 Oximetry 04/25/18 04/26/18 04/26/18 23:54 00:00 01:00 Temperature 98.3 F Pulse Rate 76 74 Pulse Rate [ 77 From Monitor] Respiratory 20 20 Rate Blood Pressure 85/51 93/52 O2 Sat by Pulse 98 100 97 Oximetry 04/26/18 04/26/18 04/26/18 02:00 03:00 04:00 Temperature 97 F L Pulse Rate 75 73 74 Pulse Rate [ From Monitor] Respiratory 15 20 19 Rate Blood Pressure 87/51 89/52 81/50 O2 Sat by Pulse 98 96 97 Oximetry 04/26/18 04/26/18 04/26/18 04:43 05:00 06:00 Temperature Pulse Rate 87 75 Pulse Rate [ 73 From Monitor] Respiratory 18 21 19 Rate Blood Pressure 83/59 81/49 O2 Sat by Pulse 100 96 Oximetry 04/26/18 04/26/18 04/26/18 07:00 08:00 08:15 Temperature 98.3 F Pulse Rate 75 81 Pulse Rate [ 82 From Monitor] Respiratory 18 19 Rate Blood Pressure 90/54 88/57 O2 Sat by Pulse 94 92 95 Oximetry 04/26/18 09:00 Temperature Pulse Rate 82 Pulse Rate [ From Monitor] Respiratory 20 Rate Blood Pressure 88/57 O2 Sat by Pulse 93 Oximetry - General physical appearance no distress, no pain, other (looks better) - Respiratory normal expansion, normal respiratory effort - Abdomen soft, not tender (in RUQ), distended (mild), not guarding, not rigid - Integumentary no rash, no growths, no abnormal pigmentation - Psychiatric oriented to time, oriented to person, oriented to place, speech is normal, memory intact - Labs 04/26/18 04:54 04/25/18 06:58 Diabetes panel 04/26/18 Range/Units 04:49 AST 52 H (5-40) units/L ALT 53 (7-56) units/L Alkaline Phosphatase 76 (35-129) units/L Total Protein 5.8 L (6.3-8.2) g/dL Albumin 3.3 L (3.9-5) g/dL Calcium panel 04/26/18 Range/Units 04:49 Albumin 3.3 L (3.9-5) g/dL Adrenal panel 04/26/18 Range/Units 04:49 Total Bilirubin 4.60 H (0.1-1.2) mg/dL AST 52 H (5-40) units/L ALT 53 (7-56) units/L Alkaline Phosphatase 76 (35-129) units/L Total Protein 5.8 L (6.3-8.2) g/dL Albumin 3.3 L (3.9-5) g/dL
[2018-04-26] MEDS: PROTONIX PO SCH (10:04)
[2018-04-26] MEDS: ELIQUIS PO SCH (10:05)
[2018-04-26] MEDS: XANAX PO PRN ×2 (10:59→23:06)
--- NOTE | 2018-04-26 15:43 | Progress Note ---
Assessment and Plan Assessment and plan: A fib with RVR, with marginally low blood pressure - Heart rate is controlled - Patient is on amiodarone drip - Couldn't start Cardizem drip or beta herrera because of low blood pressure - Cardiology consulted and recommend to continue amiodarone drip - Need cardiology recommendations if it is ok to hold eliquis for surgery, i will held it for now Systolic CHF - Patient doesn't look like and exacerbation - Hold Lasix until blood pressures normalized GERD - We'll start the patient on Protonix Gallstones, hernia, ?cholecystistis - will placed surgical evaluation - Dr aguilera will do surgery on this admission Panic attack - Continue Xanax DVT prophylaxis - heparin History Interval history: Patient was seen and evaluated in the morning at the bedside patient said she is feeling better. Hospitalist Physical - Physical exam Narrative exam: Not in cardiopulmonary distress. The patient appeared well nourished and normally developed. Vital signs as documented. Head exam is unremarkable. No scleral icterus . Neck is without jugular venous distension, thyromegaly, or carotid bruits. Lungs are clear to auscultation. Cardiac exam reveals irregularly irregular rate and Rhythm. Tachycardic. Abdominal exam reveals normal bowel sounds, no masses, no organomegaly and no aortic enlargement. Extremities are nonedematous and both femoral and pedal pulses are normal. HEMATOLOGY SPECIALIST: Alert and oriented 3. No focal weakness. - Constitutional Vitals: Temp Pulse Resp BP Pulse Ox 97.7 F 86 19 101/59 89 04/26/18 12:00 04/26/18 15:00 04/26/18 15:00 04/26/18 15:00 04/26/18 15:00 Results - Labs CBC & Chem 7: 04/26/18 04:54 04/25/18 06:58 Labs: Laboratory Last Values WBC 10.2 K/mm3 (4.5-11.0) 04/26/18 04:54 RBC 4.00 M/mm3 (3.65-5.03) 04/26/18 04:54 Hgb 11.4 gm/dl (10.1-14.3) 04/26/18 04:54 Hct 33.7 % (30.3-42.9) 04/26/18 04:54 MCV 84 fl (79-97) 04/26/18 04:54 MCH 29 pg (28-32) 04/26/18 04:54 MCHC 34 % (30-34) 04/26/18 04:54 RDW 16.6 % (13.2-15.2) H 04/26/18 04:54 Plt Count 198 K/mm3 (140-440) 04/26/18 04:54 Lymph % (Auto) 29.3 % (13.4-35.0) 04/26/18 04:54 [place] % (Auto) 9.7 % (0.0-7.3) H 04/26/18 04:54 Eos % (Auto) 0.3 % (0.0-4.3) 04/26/18 04:54 Baso % (Auto) 0.7 % (0.0-1.8) 04/26/18 04:54 Lymph # 3.0 K/mm3 (1.2-5.4) 04/26/18 04:54 [place] # 1.0 K/mm3 (0.0-0.8) H 04/26/18 04:54 Eos # 0.0 K/mm3 (0.0-0.4) 04/26/18 04:54 Baso # 0.1 K/mm3 (0.0-0.1) 04/26/18 04:54 Seg Neutrophils % 60.0 % (40.0-70.0) 04/26/18 04:54 Seg Neutrophils # 6.1 K/mm3 (1.8-7.7) 04/26/18 04:54 Sodium 135 mmol/L (137-145) L 04/25/18 06:58 Potassium 3.4 mmol/L (3.6-5.0) L 04/25/18 06:58 Chloride 95.2 mmol/L (98-107) L 04/25/18 06:58 Carbon Dioxide 22 mmol/L (22-30) 04/25/18 06:58 Anion Gap 21 mmol/L 04/25/18 06:58 BUN 18 mg/dL (7-17) H 04/25/18 06:58 Creatinine 1.0 mg/dL (0.7-1.2) 04/25/18 06:58 Estimated GFR > 60 ml/min 04/25/18 06:58 BUN/Creatinine Ratio 18 % 04/25/18 06:58 Glucose 126 mg/dL (65-100) H 04/25/18 06:58 Calcium 9.0 mg/dL (8.4-10.2) 04/25/18 06:58 Magnesium 1.80 mg/dL (1.7-2.3) 04/25/18 06:58 Total Bilirubin 4.60 mg/dL (0.1-1.2) H 04/26/18 04:49 Direct Bilirubin 1.2 mg/dL (0-0.2) H 04/26/18 04:49 Indirect Bilirubin 3.4 mg/dL 04/26/18 04:49 AST 52 units/L (5-40) H 04/26/18 04:49 ALT 53 units/L (7-56) 04/26/18 04:49 Alkaline Phosphatase 76 units/L (35-129) 04/26/18 04:49 Total Creatine Kinase 82 units/L (30-135) 04/25/18 06:58 CK-MB (CK-2) 1.6 ng/mL (0.0-4.0) 04/25/18 06:58 CK-MB (CK-2) Rel Index 1.9 (0-4) 04/25/18 06:58 Troponin T < 0.010 ng/mL (0.00-0.029) 04/25/18 06:58 NT-Pro-B Natriuret Pep 5335 pg/mL (0-900) H 04/25/18 06:58 Total Protein 5.8 g/dL (6.3-8.2) L 04/26/18 04:49 Albumin 3.3 g/dL (3.9-5) L 04/26/18 04:49 Albumin/Globulin Ratio 1.3 % 04/26/18 04:49 TSH 3.070 mlU/mL (0.270-4.200) 04/25/18 06:58 Free T4 2.31 ng/dL (0.76-1.46) H 04/25/18 06:58
--- NOTE | 2018-04-26 17:06 | Event Note ---
Date: 04/26/18 Consult dictated. Jones
--- NOTE | 2018-04-26 17:23 | Progress Note ---
Assessment and Plan Imp: 1. Afib w/ RVR, perhaps triggered by cholecystitis 2. Cholecystitis 3. COPD w/o exac. 4. Chronic systolic CHF 5. Pericardial effusion 6. Mitral regurgitation 7. Pulm HTN 2/2 #'s 3-6 8. GERD Rec: 1. Afib per cardiology 2. Moderate risk pulmonary-duarte for cholecystectomy; suspect majority of her risk is cardiac 3. COPD appears stable currently; monitor; no need for systemic steroids 4. PPI 5. SCDs while Eliquis is held 6. Stop smoking, counseled 7. Further plans pending clinical course 8. Complex decision-making Plan of care reviewed w/ patient, she understands/agrees Subjective Date of service: 04/26/18 Principal diagnosis: COPD, Afib w/ RVR Interval history: Having periods of afib/RVR, on Amio drip. SOB is improved since presentation. Having GERD and abdominal pain. No chest pain, cough, sputum. Active Medications Albuterol (Proventil) 1.25 mg IH Q6HRT PRN PRN Reason: Shortness Of Breath Alprazolam (Xanax) 0.25 mg PO TID PRN PRN Reason: Anxiety Last Admin: 04/26/18 10:59 Dose: 0.25 mg Documented by: Heparin Sodium (Porcine) (Heparin) 5,000 unit SUB-Q Q8HR NEL Amiodarone HCl 900 mg/ (Dextrose) 500 mls @ 33.33 mls/hr IV DIRECT NEL; Protocol Last Admin: 04/26/18 05:42 Dose: 0.5 mg/min, 16.67 mls/hr Documented by: Pantoprazole Sodium (Protonix) 40 mg PO DAILY NEL Last Admin: 04/26/18 10:04 Dose: 40 mg Documented by: Objective Vital Signs - 12hr 04/26/18 04/26/18 04/26/18 06:00 07:00 08:00 Temperature 98.3 F Pulse Rate 75 75 81 Pulse Rate [ 82 From Monitor] Respiratory 19 18 19 Rate Blood Pressure 81/49 90/54 88/57 O2 Sat by Pulse 94 92 Oximetry 04/26/18 04/26/18 04/26/18 08:15 09:00 10:00 Temperature Pulse Rate 82 78 Pulse Rate [ From Monitor] Respiratory 20 20 Rate Blood Pressure 88/57 85/54 O2 Sat by Pulse 95 93 92 Oximetry 04/26/18 04/26/18 04/26/18 11:00 12:00 13:00 Temperature 97.7 F Pulse Rate 92 H 82 93 H Pulse Rate [ 86 From Monitor] Respiratory 21 13 25 H Rate Blood Pressure 89/50 87/54 109/70 O2 Sat by Pulse 93 93 100 Oximetry 04/26/18 04/26/18 04/26/18 14:00 15:00 16:00 Temperature 98.4 F Pulse Rate 82 86 91 H Pulse Rate [ 87 From Monitor] Respiratory 24 19 28 H Rate Blood Pressure 85/59 101/59 106/70 O2 Sat by Pulse 92 89 100 Oximetry 04/26/18 17:00 Temperature Pulse Rate 84 Pulse Rate [ From Monitor] Respiratory 25 H Rate Blood Pressure 83/51 O2 Sat by Pulse 95 Oximetry Constitutional: no acute distress, alert Eyes: non-icteric ENT: oropharynx moist Neck: supple Ascultation: Bilateral: diminished breath sounds (bases) Cardiovascular: irregular rhythm (tachy, no r/g; II/ systolic murmur throughout) Gastrointestinal: normoactive bowel sounds, non-distended Integumentary: normal Extremities: no cyanosis, pink and warm, edema (mild or trace, pretibial) Neurologic: normal mental status, non-focal exam, pupils equal and round, CN II- XII normal Psychiatric: mood appropriate, affect normal CBC and BMP: 04/26/18 04:54 04/25/18 06:58 Abnormal lab findings: Abnormal Labs 04/25/18 04/25/18 04/25/18 06:58 06:58 06:58 RDW 16.6 H [place] % (Auto) 9.9 H Baso % (Auto) 2.1 H [place] # Baso # 0.2 H Sodium 135 L Potassium 3.4 L Chloride 95.2 L BUN 18 H Glucose 126 H Total Bilirubin Direct Bilirubin AST NT-Pro-B Natriuret Pep Total Protein Albumin Free T4 2.31 H 04/25/18 04/26/18 04/26/18 06:58 04:49 04:54 RDW 16.6 H [place] % (Auto) 9.7 H Baso % (Auto) [place] # 1.0 H Baso # Sodium Potassium Chloride BUN Glucose Total Bilirubin 4.60 H Direct Bilirubin 1.2 H AST 52 H NT-Pro-B Natriuret Pep 5335 H Total Protein 5.8 L Albumin 3.3 L Free T4 Chest x-ray: report reviewed, image reviewed (minimally changed from prior; probable small effusions and large pericardial effusion with cardiomegaly)
[2018-04-26] MEDS: HEPARIN SUB-Q SCH (22:03)
[2018-04-26] MEDS: PROVENTIL IH PRN (22:49)
--- NOTE | 2018-04-27 01:14 | Consultation ---
She is seen in the hospital on 04/26/2018. CONSULTATION REQUESTED BY: Pavel Mcdonnell MD HISTORY OF PRESENT ILLNESS: This is a 57-year-old female who is now presented to the Emergency Room with complaints of palpitations, off and on of 2 weeks' duration and also intermittent chest pain, which she describes as dull as well as sharp in nature, occurring intermittently again for further evaluation and management. The patient did complain of associated nausea and shortness of breath with the chest discomfort. In addition, the patient noticed some edema of both ankles too. She does not give any typical history of orthopnea or PND, does complain of exertional dyspnea, worse on lying down. No palpitations, claudications, dizziness or syncope. No fevers, chills. As far as the palpitations are concerned, the patient states that it occurs at any time, feels like heart is skipping or racing. No other associated symptoms with that. The patient was known to have mitral valve prolapse, atrial fibrillation, systolic congestive heart failure, ventricular tachycardia, gastroesophageal reflux disease, cholecystitis as well as right abdominal umbilical hernia. The patient said that she still has significant amount of pain over the right upper lobe and in the abdomen and all the way to the back. She could not get cardiac clearance to get surgery done as per the patient. There is history of no orthopnea or PND. The edema of feet noted. Palpitations as noted. No claudications. FAMILY HISTORY: Unremarkable. SOCIAL HISTORY: The patient is a smoker. She still smokes 3 cigarettes per day. Nonalcoholic. REVIEW OF SYSTEMS: CARDIOVASCULAR: As described, complaints of palpitations and chest pain. RESPIRATORY: The patient noted shortness of breath. GASTROINTESTINAL: History of nausea now. GENITOURINARY: Unremarkable. MEDICATIONS: At the time of admission, the patient was on metoprolol 25 mg p.o. b.i.d., Lasix 40 mg p.o. daily, K-Dur 20 mEq daily, Eliquis 5 mg p.o. q. 12 hours, and Xanax 0.25 mg p.r.n. PHYSICAL EXAMINATION: VITAL SIGNS: The patient's vital signs showed a blood pressure of 85/63, heart rate was 135 beats per minute and irregular. GENERAL: On examination, this is a 57-year-old female, well built and moderately nourished, in no acute distress at the present time. The patient is conscious, alert, oriented, afebrile. Vital signs were stable. SKIN: Warm and dry. HEENT: Pupils are reactive. NECK: Supple. Both carotids are well palpable. No significant bruit, no JVD. CHEST: Lungs are clear. HEART: S1, S2 audible. Grade 1/6 systolic murmur noted. No diastolic murmur or gallop. ABDOMEN: Soft and nontender. EXTREMITIES: No edema, no calf tenderness. Good pedal pulses. NEUROLOGIC: Evaluation was grossly within normal limits. RECTAL: Examination is not done at this time. PELVIC: Examination is not done at this time. IMAGING STUDIES: EKG done showed evidence of atrial fibrillation with rapid ventricular response, nonspecific ST-T changes. LABORATORY DATA: The patient's CBC was within normal limits. Creatinine was also normal at 1.0. BUN was 18 and glucose was 126. T4 and TSH are within normal limits. Troponin was normal x 2. IMPRESSION AND PLAN: 1. Atrial fibrillation with rapid ventricular response. The patient is now on amiodarone drip. Rate is still mildly elevated. Blood pressure is low normal. She will continue present medication for now. 2. The patient was on Eliquis, which is being held because the patient may need surgery, which was postponed last time. 3. Systolic congestive heart failure. 4. At this time, the patient's condition appears stable. I do not see any signs of decompensated congestive heart failure. 5. Gastroesophageal reflux disease. 6. History of cholelithiasis and cholecystitis. 7. Umbilical hernia. 8. History of tobacco abuse. This is a 57-year-old female with a history of chronic obstructive pulmonary disease and smoking and also history of cholelithiasis, cholecystitis and problems with umbilical hernia, who is now presenting with complaints of palpitations and chest pain for further evaluation and management. The patient's chest pain is rather atypical for cardiac etiology. The patient is noted to have atrial fibrillation with rapid ventricular response, which explains her complaints of palpitations and dyspnea. We will go ahead and start her on medications for rate control. She is currently on amiodarone drip, I will continue that. Consider additional medications if the blood pressure improves. The patient is now receiving Protonix for gastroesophageal reflux disease. She was on Lasix, but it is being held because of the low blood pressure. The patient is on Eliquis, which is being held because of the possibility of surgery. For now, we will continue present medications and monitor her heart rate and blood pressure closely. Watch for any signs of worsening congestive heart failure. Rest of the plan is as per orders. Thank you very much for this consultation. We will follow the patient along with you. JOB# [id number] SONIYA/LIDIA
[2018-04-27] MEDS: PERCOCET 5/325 PO PRN (05:39)
[2018-04-27] MEDS: HEPARIN SUB-Q SCH ×3 (05:39→21:22)
[2018-04-27 05:42] LABS: INR 1.66 (0.87-1.13)
[2018-04-27 05:43] LABS: Partial Thromboplastin Time 29.4 Sec. (24.2-36.6)
[2018-04-27 05:45] LABS: Albumin 3.4 g/dL (3.9-5); Bilirubin,Direct 1.1 mg/dL (0-0.2)
--- NOTE | 2018-04-27 07:29 | Progress Note ---
Assessment and Plan - Patient Problems (1) Cholecystitis Current Visit: Yes Status: Acute Plan to address problem: Pt stable. Chronic cholecystitis. She is feeling better today. Bilirubin coming down as expected for hepatic congestion secondary to CHF. Will hold off on MRCP for now. LFTs in AM. Appreciate Pulm risk assessment. Await Cards final surgical risk assessment. Awaiting HIDA report from [facility] to complete our records. Once cards has finalized their assessment, will discuss surgery with patient and schedule. Please call with questions. Time=10min (2) Umbilical hernia without mention of obstruction or gangrene Current Visit: Yes Status: Acute Plan to address problem: Pt stable. Patient is symptomatic from this moderate sized hernia. There are no signs of any compromise of the umbilical skin at this time. This is something that we will repair at the time of her cholecystectomy. Subjective Date of service: 04/27/18 Patient Reports: Positive: feels better, pain is less, tolerating a regular diet, other (still with some SOB with activity. ). Negative: nausea, vomiting Objective Vital Signs - 12hr 04/26/18 04/26/18 04/26/18 20:00 20:01 20:32 Temperature 98.9 F Pulse Rate 95 H Pulse Rate [ Anterior Bilateral] Pulse Rate [ 108 H From Monitor] Respiratory 19 22 Rate Respiratory Rate [Anterior Bilateral] Blood Pressure 100/61 O2 Sat by Pulse 99 93 94 Oximetry 04/26/18 04/26/18 04/26/18 21:00 22:00 22:45 Temperature Pulse Rate 93 H 86 Pulse Rate [ 80 Anterior Bilateral] Pulse Rate [ From Monitor] Respiratory 29 H 25 H Rate Respiratory 20 Rate [Anterior Bilateral] Blood Pressure 101/68 109/57 O2 Sat by Pulse 92 90 Oximetry 04/26/18 04/26/18 04/26/18 22:55 23:00 23:03 Temperature Pulse Rate 87 95 H Pulse Rate [ 88 Anterior Bilateral] Pulse Rate [ From Monitor] Respiratory 25 H 26 H Rate Respiratory 18 Rate [Anterior Bilateral] Blood Pressure 105/67 105/67 O2 Sat by Pulse 94 93 Oximetry 04/26/18 04/27/18 04/27/18 23:12 00:00 01:00 Temperature 98.5 F Pulse Rate 91 H 80 Pulse Rate [ Anterior Bilateral] Pulse Rate [ From Monitor] Respiratory 20 22 Rate Respiratory Rate [Anterior Bilateral] Blood Pressure 105/67 103/67 O2 Sat by Pulse 91 90 Oximetry 04/27/18 04/27/18 04/27/18 02:00 03:00 04:00 Temperature 98.5 F Pulse Rate 82 79 78 Pulse Rate [ Anterior Bilateral] Pulse Rate [ 79 From Monitor] Respiratory 16 18 21 Rate Respiratory Rate [Anterior Bilateral] Blood Pressure 102/61 96/48 91/49 O2 Sat by Pulse 84 92 100 Oximetry 04/27/18 04/27/18 04/27/18 05:01 06:00 07:00 Temperature Pulse Rate 103 H 81 82 Pulse Rate [ Anterior Bilateral] Pulse Rate [ From Monitor] Respiratory 20 20 21 Rate Respiratory Rate [Anterior Bilateral] Blood Pressure 98/70 93/66 100/65 O2 Sat by Pulse 93 94 90 Oximetry - General physical appearance no distress, no pain, other (looks well) - Eyes normal occular movement - Respiratory normal expansion, normal respiratory effort - Abdomen soft, tender (mild in RUQ and around umbo), not distended, not guarding, not rigid - Integumentary no rash, no growths, no abnormal pigmentation - Psychiatric oriented to time, oriented to person, oriented to place, speech is normal, memory intact - Labs 04/26/18 04:54 04/25/18 06:58 Diabetes panel 04/27/18 Range/Units 04:12 AST 62 H (5-40) units/L ALT 77 H (7-56) units/L Alkaline Phosphatase 85 (35-129) units/L Total Protein 5.9 L (6.3-8.2) g/dL Albumin 3.4 L (3.9-5) g/dL Calcium panel 04/27/18 Range/Units 04:12 Albumin 3.4 L (3.9-5) g/dL Adrenal panel 04/27/18 Range/Units 04:12 Total Bilirubin 3.60 H (0.1-1.2) mg/dL AST 62 H (5-40) units/L ALT 77 H (7-56) units/L Alkaline Phosphatase 85 (35-129) units/L Total Protein 5.9 L (6.3-8.2) g/dL Albumin 3.4 L (3.9-5) g/dL
--- NOTE | 2018-04-27 07:41 | Progress Note ---
Assessment and Plan Assessment and plan: 57 year old -[place] female with past medical history significant for mitral valve prolapse, A. fib, systolic CHF, panic attack, GERD, cholecystitis, hernia, tobacco use disorder, COPD presented to the emergency department for complaints of palpitation. Patient says chest palpitation for the last 1 month. Patient subsequently complaining epigastric burning pain which he attributed to her GERD. Patient is also complaining shortness of breath. Patient is admitted a month ago and was treated for A.fib and CHF. Patient was in A. fib with RVR, started on amiodarone drip but couldn't start Cardizem drip because of low blood pressure. Currently undergoing work up and risk assessment for cholecystectomy. Initially noted elevated LFT likely secondary to CHF and for that reason MRCP being held. A fib with RVR, with marginally low blood pressure - Heart rate is controlled, ON Amiodarone drip. - Couldn't start Cardizem drip or beta herrera because of low blood pressure - Cardiology consulted and recommend to continue amiodarone drip - Eliquis on hold for possible surgery, will defer to cardiology if there is a need for heparin drip while eliquis is held Cholecystitis/Hernia - Surgery following Plan for surgery for cholecystectomy Chronic Systolic CHF - Patient doesn't look like and exacerbation - Hold Lasix until blood pressures normalized GERD - We'll start the patient on Protonix Panic attack - Continue Xanax Pericardial effusion - No acute pulmonary compromise COPD without exacerbation/Pulmonary HTN -Pulmonary following DVT prophylaxis - heparin/SCD Continues ICU care due to Amiodarone drip. The high probability of a clinically significant, sudden or life threatening deterioration of the [cardiac, GI] system(s) required my full and direct attention, intervention and personal management. The aggregate critical care time was [45] minutes. This time is in addition to time spent performing reported procedures but includes the following: [x] Data Review and interpretation [x] Patient assessment and monitoring of vital signs [x] Documentation [x] Medication orders and management History Interval history: Patient SEEN AND examined, Still with abdominal pain and occasional increased hr. Shortness of breath still present but improving some. Hospitalist Physical - Physical exam Narrative exam: VITAL SIGNS: Reviewed. GENERAL: The patient appeared well nourished and normally developed. Vital signs as documented. HEAD: No signs of head trauma. EYES: Pupils are equal. Extraocular motions intact. EARS: Hearing grossly intact. MOUTH: Oropharynx is normal. NECK: No adenopathy, no JVD. CHEST: Chest with clear breath sounds bilaterally. No wheezes, rales, or rhonchi. CARDIAC: Irregularly irregular. S1 and S2, without murmurs, gallops, or rubs. VASCULAR: Trace Edema. Peripheral pulses normal and equal in all extremities. ABDOMEN: Soft, without detectable tenderness. No sign of distention. No rebound or guarding, and no masses palpated. Bowel Sounds normal. MUSCULOSKELETAL: Good range of motion of all major joints. Extremities without clubbing, cyanosis. noted trace edema. NEUROLOGIC EXAM: Alert and oriented x 3. No focal sensory or strength deficits. Speech normal. Follows commands. PSYCHIATRIC: Mood normal. SKIN: No rash or lesions. - Constitutional Vitals: Temp Pulse Resp BP Pulse Ox 98.5 F 82 21 100/65 90 04/27/18 04:00 04/27/18 07:00 04/27/18 07:00 04/27/18 07:00 04/27/18 07:00 Results - Labs CBC & Chem 7: 04/26/18 04:54 04/25/18 06:58 Labs: Laboratory Last Values WBC 10.2 K/mm3 (4.5-11.0) 04/26/18 04:54 RBC 4.00 M/mm3 (3.65-5.03) 04/26/18 04:54 Hgb 11.4 gm/dl (10.1-14.3) 04/26/18 04:54 Hct 33.7 % (30.3-42.9) 04/26/18 04:54 MCV 84 fl (79-97) 04/26/18 04:54 MCH 29 pg (28-32) 04/26/18 04:54 MCHC 34 % (30-34) 04/26/18 04:54 RDW 16.6 % (13.2-15.2) H 04/26/18 04:54 Plt Count 198 K/mm3 (140-440) 04/26/18 04:54 Lymph % (Auto) 29.3 % (13.4-35.0) 04/26/18 04:54 [place] % (Auto) 9.7 % (0.0-7.3) H 04/26/18 04:54 Eos % (Auto) 0.3 % (0.0-4.3) 04/26/18 04:54 Baso % (Auto) 0.7 % (0.0-1.8) 04/26/18 04:54 Lymph # 3.0 K/mm3 (1.2-5.4) 04/26/18 04:54 [place] # 1.0 K/mm3 (0.0-0.8) H 04/26/18 04:54 Eos # 0.0 K/mm3 (0.0-0.4) 04/26/18 04:54 Baso # 0.1 K/mm3 (0.0-0.1) 04/26/18 04:54 Seg Neutrophils % 60.0 % (40.0-70.0) 04/26/18 04:54 Seg Neutrophils # 6.1 K/mm3 (1.8-7.7) 04/26/18 04:54 PT 20.7 Sec. (12.2-14.9) H 04/27/18 04:12 INR 1.66 (0.87-1.13) H 04/27/18 04:12 APTT 29.4 Sec. (24.2-36.6) 04/27/18 04:12 Sodium 135 mmol/L (137-145) L 04/25/18 06:58 Potassium 3.4 mmol/L (3.6-5.0) L 04/25/18 06:58 Chloride 95.2 mmol/L (98-107) L 04/25/18 06:58 Carbon Dioxide 22 mmol/L (22-30) 04/25/18 06:58 Anion Gap 21 mmol/L 04/25/18 06:58 BUN 18 mg/dL (7-17) H 04/25/18 06:58 Creatinine 1.0 mg/dL (0.7-1.2) 04/25/18 06:58 Estimated GFR > 60 ml/min 04/25/18 06:58 BUN/Creatinine Ratio 18 % 04/25/18 06:58 Glucose 126 mg/dL (65-100) H 04/25/18 06:58 Calcium 9.0 mg/dL (8.4-10.2) 04/25/18 06:58 Magnesium 1.80 mg/dL (1.7-2.3) 04/25/18 06:58 Total Bilirubin 3.60 mg/dL (0.1-1.2) H 04/27/18 04:12 Direct Bilirubin 1.1 mg/dL (0-0.2) H 04/27/18 04:12 Indirect Bilirubin 2.5 mg/dL 04/27/18 04:12 AST 62 units/L (5-40) H 04/27/18 04:12 ALT 77 units/L (7-56) H 04/27/18 04:12 Alkaline Phosphatase 85 units/L (35-129) 04/27/18 04:12 Total Creatine Kinase 82 units/L (30-135) 04/25/18 06:58 CK-MB (CK-2) 1.6 ng/mL (0.0-4.0) 04/25/18 06:58 CK-MB (CK-2) Rel Index 1.9 (0-4) 04/25/18 06:58 Troponin T < 0.010 ng/mL (0.00-0.029) 04/25/18 06:58 NT-Pro-B Natriuret Pep 5335 pg/mL (0-900) H 04/25/18 06:58 Total Protein 5.9 g/dL (6.3-8.2) L 04/27/18 04:12 Albumin 3.4 g/dL (3.9-5) L 04/27/18 04:12 Albumin/Globulin Ratio 1.4 % 04/27/18 04:12 TSH 3.070 mlU/mL (0.270-4.200) 04/25/18 06:58 Free T4 2.31 ng/dL (0.76-1.46) H 04/25/18 06:58
[2018-04-27] MEDS: PROVENTIL IH PRN (08:17)
[2018-04-27] MEDS: PROTONIX PO SCH (10:05)
[2018-04-27] MEDS: CORDARONE 900 MG in D5W 482 ML IV SCH (11:38)
--- NOTE | 2018-04-27 13:54 | Progress Note ---
Assessment and Plan Currently stable cardiac status. Pt currently in NSR. Cont present cardiac management and plan for conversion to PO regimen after surgery. Replete K+. The patient has been seen in conjunction with Dr. Coe who agrees with the assessment and plan of care. - Patient Problems (1) Paroxysmal atrial fibrillation with RVR Current Visit: Yes Status: Chronic (2) Cholecystitis Current Visit: Yes Status: Acute (3) GERD (gastroesophageal reflux disease) Current Visit: Yes Status: Chronic (4) Umbilical hernia without mention of obstruction or gangrene Current Visit: Yes Status: Chronic (5) Anxiety Current Visit: Yes Status: Chronic Subjective Date of service: 04/27/18 Principal diagnosis: COPD, Afib w/ RVR Interval history: pt resting in bed, no current cardiac complaints. in SR on telemetry. Objective Last Vital Signs Temp 97.4 F L 04/27/18 08:00 Pulse 79 04/27/18 11:01 Resp 21 04/27/18 11:01 BP 101/68 04/27/18 11:01 Pulse Ox 97 04/27/18 11:01 - Physical Examination General: No Apparent Distress HEENT: Positive: PERRL, Normocephaly, Mucus Membranes Moist Neck: Positive: neck supple, trachea midline Cardiac: Positive: Reg Rate and Rhythm, S1/S2 Lungs: Positive: Decreased Breath Sounds Neuro: Positive: Grossly Intact Abdomen: Positive: Soft Skin: Negative: Rash, Wound Musculoskeletal: No Pain Extremities: Absent: edema - Labs and Meds Cardiac Enzymes 04/27/18 Range/Units 04:12 AST 62 H (5-40) units/L Coagulation 04/27/18 Range/Units 04:12 PT 20.7 H (12.2-14.9) Sec. INR 1.66 H (0.87-1.13) APTT 29.4 (24.2-36.6) Sec. Comprehensive Metabolic Panel 04/27/18 Range/Units 04:12 Direct Bilirubin 1.1 H (0-0.2) mg/dL Indirect Bilirubin 2.5 mg/dL AST 62 H (5-40) units/L ALT 77 H (7-56) units/L Alkaline Phosphatase 85 (35-129) units/L Total Protein 5.9 L (6.3-8.2) g/dL Albumin 3.4 L (3.9-5) g/dL - Telemetry EKG Rhythm: Sinus Rhythm
[2018-04-27] MEDS ORDERED: K-DUR PO NR (14:00)
[2018-04-27] MEDS: ZOFRAN IV PRN (14:26)
--- NOTE | 2018-04-27 14:52 | Progress Note ---
Assessment and Plan Imp: 1. Afib w/ RVR, perhaps triggered by cholecystitis 2. Cholecystitis 3. COPD w/o exac. 4. Chronic systolic CHF 5. Pericardial effusion 6. Mitral regurgitation 7. Pulm HTN 2/2 #'s 3-6 8. GERD Rec: 1. Afib per cardiology 2. Moderate risk pulmonary-duarte for cholecystectomy; suspect majority of her risk is cardiac 3. COPD appears stable currently; monitor; no need for systemic steroids 4. PPI 5. On SubQ heparin while Eliquis is held 6. Stop smoking, counseled 7. Further plans pending clinical course 8. Believe she is able to go to Telemetry on a non-titratable Amiodarone drip, if okay with cardiology Plan of care reviewed w/ patient, she understands/agrees Subjective Date of service: 04/27/18 Principal diagnosis: COPD, Afib w/ RVR Interval history: Having periods of afib/RVR, on Amio drip. SOB is improved since presentation. Having abdominal pain and nausea. GERD better. No chest pain, cough, sputum. Sitting up in chair. Active Medications Albuterol (Proventil) 1.25 mg IH Q6HRT PRN PRN Reason: Shortness Of Breath Last Admin: 04/27/18 08:17 Dose: 1.25 mg Documented by: Alprazolam (Xanax) 0.25 mg PO TID PRN PRN Reason: Anxiety Last Admin: 04/26/18 23:06 Dose: 0.25 mg Documented by: Heparin Sodium (Porcine) (Heparin) 5,000 unit SUB-Q Q8HR NEL Last Admin: 04/27/18 14:26 Dose: 5,000 unit Documented by: Amiodarone HCl 900 mg/ (Dextrose) 500 mls @ 33.33 mls/hr IV DIRECT NEL; Protocol Last Admin: 04/27/18 11:38 Dose: 0.5 mg/min, 16.67 mls/hr Documented by: Ondansetron HCl (Zofran) 4 mg IV Q4H PRN PRN Reason: Nausea Last Admin: 04/27/18 14:26 Dose: 4 mg Documented by: Oxycodone/Acetaminophen (Percocet 5/325) 1 tab PO Q4H PRN PRN Reason: Pain, Moderate (4-6) Last Admin: 04/27/18 05:39 Dose: 1 tab Documented by: Pantoprazole Sodium (Protonix) 40 mg PO DAILY NEL Last Admin: 04/27/18 10:05 Dose: 40 mg Documented by: Potassium Chloride (K-Dur) 40 meq PO ONCE NR Stop: 04/27/18 15:30 Last Admin: 04/27/18 14:25 Dose: 40 meq Documented by: Objective Vital Signs - 12hr 04/27/18 04/27/18 04/27/18 03:00 04:00 05:01 Temperature 98.5 F Pulse Rate 79 78 103 H Pulse Rate [ Anterior Bilateral] Pulse Rate [ 79 From Monitor] Respiratory 18 21 20 Rate Respiratory Rate [Anterior Bilateral] Blood Pressure 96/48 91/49 98/70 O2 Sat by Pulse 92 100 93 Oximetry 04/27/18 04/27/18 04/27/18 06:00 07:00 08:00 Temperature 97.4 F L Pulse Rate 81 82 76 Pulse Rate [ Anterior Bilateral] Pulse Rate [ 82 From Monitor] Respiratory 20 21 15 Rate Respiratory Rate [Anterior Bilateral] Blood Pressure 93/66 100/65 102/65 O2 Sat by Pulse 94 90 100 Oximetry 04/27/18 04/27/18 04/27/18 08:16 08:17 08:33 Temperature Pulse Rate Pulse Rate [ 77 77 Anterior Bilateral] Pulse Rate [ From Monitor] Respiratory Rate Respiratory 16 14 Rate [Anterior Bilateral] Blood Pressure O2 Sat by Pulse 96 Oximetry 04/27/18 04/27/18 04/27/18 09:00 10:00 11:01 Temperature Pulse Rate 79 74 79 Pulse Rate [ Anterior Bilateral] Pulse Rate [ From Monitor] Respiratory 23 13 21 Rate Respiratory Rate [Anterior Bilateral] Blood Pressure 107/68 91/58 101/68 O2 Sat by Pulse 98 95 97 Oximetry Constitutional: no acute distress, alert Eyes: non-icteric ENT: oropharynx moist Neck: supple Ascultation: Bilateral: clear, diminished breath sounds (bases) Cardiovascular: irregular rhythm (tachy, no r/g; II/ systolic murmur throughout) Gastrointestinal: normoactive bowel sounds, non-distended Integumentary: normal Extremities: no cyanosis, pink and warm, edema (mild or trace, pretibial) Neurologic: normal mental status, non-focal exam, pupils equal and round, CN II- XII normal Psychiatric: mood appropriate, affect normal CBC and BMP: 04/26/18 04:54 04/25/18 06:58 ABG, PT/INR, D-dimer: PT/INR, D-dimer PT 20.7 Sec. (12.2-14.9) H 04/27/18 04:12 INR 1.66 (0.87-1.13) H 04/27/18 04:12 Abnormal lab findings: Abnormal Labs 04/25/18 04/25/18 04/25/18 06:58 06:58 06:58 RDW 16.6 H [place] % (Auto) 9.9 H Baso % (Auto) 2.1 H [place] # Baso # 0.2 H PT INR Sodium 135 L Potassium 3.4 L Chloride 95.2 L BUN 18 H Glucose 126 H Total Bilirubin Direct Bilirubin AST ALT NT-Pro-B Natriuret Pep Total Protein Albumin Free T4 2.31 H 04/25/18 04/26/18 04/26/18 06:58 04:49 04:54 RDW 16.6 H [place] % (Auto) 9.7 H Baso % (Auto) [place] # 1.0 H Baso # PT INR Sodium Potassium Chloride BUN Glucose Total Bilirubin 4.60 H Direct Bilirubin 1.2 H AST 52 H ALT NT-Pro-B Natriuret Pep 5335 H Total Protein 5.8 L Albumin 3.3 L Free T4 04/27/18 04/27/18 04:12 04:12 RDW [place] % (Auto) Baso % (Auto) [place] # Baso # PT 20.7 H INR 1.66 H Sodium Potassium Chloride BUN Glucose Total Bilirubin 3.60 H Direct Bilirubin 1.1 H AST 62 H ALT 77 H NT-Pro-B Natriuret Pep Total Protein 5.9 L Albumin 3.4 L Free T4 Chest x-ray: report reviewed, image reviewed
[2018-04-27] MEDS: XANAX PO PRN (17:00)
[2018-04-28] MEDS: XANAX PO PRN ×2 (04:58→15:08)
[2018-04-28] MEDS: HEPARIN SUB-Q SCH ×3 (05:00→21:11)
[2018-04-28 06:10] LABS: Albumin 3.6 g/dL (3.9-5)
[2018-04-28 06:11] LABS: BUN/Creatinine Ratio 14; Blood Urea Nitrogen 11 mg/dL (7-17); Calcium 8.8 mg/dL (8.4-10.2); Hemolysis Index 14
--- NOTE | 2018-04-28 10:27 | Progress Note ---
Assessment and Plan Imp: 1. Afib w/ RVR, perhaps triggered by cholecystitis 2. Cholecystitis 3. COPD w/o exac. 4. Chronic systolic CHF 5. Pericardial effusion 6. Mitral regurgitation 7. Pulm HTN 2/2 #'s 3-6 8. GERD Rec: 1. Afib per cardiology 2. Moderate risk pulmonary-duarte for cholecystectomy; suspect majority of her risk is cardiac 3. COPD appears stable currently; monitor; no need for systemic steroids 4. PPI 5. On SubQ heparin while Eliquis is held 6. Stop smoking, counseled 7. Further plans pending clinical course 8. Believe she is able to go to Telemetry on a non-titratable Amiodarone drip, if okay with cardiology Plan of care reviewed w/ patient, she understands/agrees Subjective Date of service: 04/28/18 Principal diagnosis: COPD, Afib w/ RVR Interval history: Afib controlled on Amio drip. Abd pain better. Eating breakfast. GERD better. No chest pain, cough, sputum. Active Medications Albuterol (Proventil) 1.25 mg IH Q6HRT PRN PRN Reason: Shortness Of Breath Last Admin: 04/27/18 08:17 Dose: 1.25 mg Documented by: Alprazolam (Xanax) 0.25 mg PO TID PRN PRN Reason: Anxiety Last Admin: 04/28/18 04:58 Dose: 0.25 mg Documented by: Heparin Sodium (Porcine) (Heparin) 5,000 unit SUB-Q Q8HR NEL Last Admin: 04/28/18 05:00 Dose: 5,000 unit Documented by: Amiodarone HCl 900 mg/ (Dextrose) 500 mls @ 33.33 mls/hr IV DIRECT NEL; Protocol Last Admin: 04/27/18 11:38 Dose: 0.5 mg/min, 16.67 mls/hr Documented by: Ondansetron HCl (Zofran) 4 mg IV Q4H PRN PRN Reason: Nausea Last Admin: 04/27/18 14:26 Dose: 4 mg Documented by: Oxycodone/Acetaminophen (Percocet 5/325) 1 tab PO Q4H PRN PRN Reason: Pain, Moderate (4-6) Last Admin: 04/27/18 05:39 Dose: 1 tab Documented by: Pantoprazole Sodium (Protonix) 40 mg PO DAILY NEL Last Admin: 04/27/18 10:05 Dose: 40 mg Documented by: Objective Vital Signs - 12hr 04/27/18 04/27/18 04/28/18 23:00 23:09 00:00 Temperature 98.5 F Pulse Rate 90 89 Respiratory 22 22 Rate Blood Pressure 98/64 98/64 O2 Sat by Pulse 95 99 95 Oximetry 04/28/18 04/28/18 04/28/18 00:01 01:00 02:00 Temperature Pulse Rate 81 82 106 H Respiratory 19 18 15 Rate Blood Pressure 92/59 93/61 85/61 O2 Sat by Pulse 97 97 Oximetry 04/28/18 04/28/18 04/28/18 03:00 04:00 05:00 Temperature 98.7 F Pulse Rate 78 81 87 Respiratory 13 11 L 23 Rate Blood Pressure 92/62 101/69 106/71 O2 Sat by Pulse 95 98 99 Oximetry 04/28/18 06:00 Temperature Pulse Rate 83 Respiratory 13 Rate Blood Pressure 105/73 O2 Sat by Pulse 96 Oximetry Constitutional: no acute distress, alert Eyes: non-icteric ENT: oropharynx moist Neck: supple Ascultation: Bilateral: clear, diminished breath sounds (bases) Cardiovascular: irregular rhythm (tachy, no r/g; II/ systolic murmur throughout) Gastrointestinal: normoactive bowel sounds, non-distended Integumentary: normal Extremities: no cyanosis, pink and warm, edema (mild or trace, pretibial) Neurologic: normal mental status, non-focal exam, pupils equal and round, CN II- XII normal Psychiatric: mood appropriate, affect normal CBC and BMP: 04/26/18 04:54 04/28/18 04:35 ABG, PT/INR, D-dimer: PT/INR, D-dimer PT 20.7 Sec. (12.2-14.9) H 04/27/18 04:12 INR 1.66 (0.87-1.13) H 04/27/18 04:12 Abnormal lab findings: Abnormal Labs 04/25/18 04/25/18 04/25/18 06:58 06:58 06:58 RDW 16.6 H [place] % (Auto) 9.9 H Baso % (Auto) 2.1 H [place] # Baso # 0.2 H PT INR Sodium 135 L Potassium 3.4 L Chloride 95.2 L BUN 18 H Glucose 126 H Total Bilirubin Direct Bilirubin AST ALT NT-Pro-B Natriuret Pep Total Protein Albumin Free T4 2.31 H 04/25/18 04/26/18 04/26/18 06:58 04:49 04:54 RDW 16.6 H [place] % (Auto) 9.7 H Baso % (Auto) [place] # 1.0 H Baso # PT INR Sodium Potassium Chloride BUN Glucose Total Bilirubin 4.60 H Direct Bilirubin 1.2 H AST 52 H ALT NT-Pro-B Natriuret Pep 5335 H Total Protein 5.8 L Albumin 3.3 L Free T4 04/27/18 04/27/18 04/28/18 04:12 04:12 04:35 RDW [place] % (Auto) Baso % (Auto) [place] # Baso # PT 20.7 H INR 1.66 H Sodium Potassium Chloride BUN Glucose Total Bilirubin 3.60 H 3.80 H Direct Bilirubin 1.1 H 1.0 H AST 62 H 82 H ALT 77 H 116 H NT-Pro-B Natriuret Pep Total Protein 5.9 L Albumin 3.4 L 3.6 L Free T4 04/28/18 04:35 RDW [place] % (Auto) Baso % (Auto) [place] # Baso # PT INR Sodium 134 L Potassium Chloride 96.0 L BUN Glucose 139 H Total Bilirubin Direct Bilirubin AST ALT NT-Pro-B Natriuret Pep Total Protein Albumin Free T4 Chest x-ray: report reviewed, image reviewed
[2018-04-28] MEDS: PROTONIX PO SCH (10:30)
--- NOTE | 2018-04-28 11:11 | Progress Note ---
Assessment and Plan - Patient Problems (1) Cholecystitis Current Visit: Yes Status: Acute Plan to address problem: Pt stable. Chronic cholecystitis. She is feeling better today. Bilirubin is relatively stable at this point, but the enzymes are slightly trending up. Will get MRCP to rule out obstruction. I think this is most likely hepatic dysfuncti on. Appreciate Pulm and Cards risk assessment. Spoke with both today. Pt is moderate risk from boths view points. Discussed with patient. She would like to proceed. Please continue to hold eliquis. Will work on getting her on the OR schedule for [facility]. Awaiting MATHIEUA report from [place] to complete our records. Please call with questions. Time=10min (2) Umbilical hernia without mention of obstruction or gangrene Current Visit: Yes Status: Chronic Plan to address problem: Pt stable. Patient is symptomatic from this moderate sized hernia. There are no signs of any compromise of the umbilical skin at this time. This is something that we will repair at the time of her cholecystectomy. Subjective Date of service: 04/28/18 Patient Reports: Positive: no new complaints, pain is less, tolerating a regular diet. Negative: nausea, vomiting Objective Vital Signs - 12hr 04/28/18 04/28/18 04/28/18 00:00 00:01 01:00 Temperature 98.5 F Pulse Rate 81 82 Respiratory 19 18 Rate Blood Pressure 92/59 93/61 O2 Sat by Pulse 95 97 Oximetry 04/28/18 04/28/18 04/28/18 02:00 03:00 04:00 Temperature 98.7 F Pulse Rate 106 H 78 81 Respiratory 15 13 11 L Rate Blood Pressure 85/61 92/62 101/69 O2 Sat by Pulse 97 95 98 Oximetry 04/28/18 04/28/18 05:00 06:00 Temperature Pulse Rate 87 83 Respiratory 23 13 Rate Blood Pressure 106/71 105/73 O2 Sat by Pulse 99 96 Oximetry - General physical appearance no distress, no pain - Respiratory normal expansion, normal respiratory effort - Abdomen soft, tender (mild), not distended, not guarding, not rigid - Integumentary no rash, no growths, no abnormal pigmentation - Psychiatric oriented to time, oriented to person, oriented to place, speech is normal, memory intact - Labs 04/26/18 04:54 04/28/18 04:35 Diabetes panel 04/28/18 04/28/18 Range/Units 04:35 04:35 Sodium 134 L (137-145) mmol/L Potassium 4.0 (3.6-5.0) mmol/L Chloride 96.0 L (98-107) mmol/L Carbon Dioxide 22 (22-30) mmol/L BUN 11 (7-17) mg/dL Creatinine 0.8 (0.7-1.2) mg/dL Glucose 139 H (65-100) mg/dL Calcium 8.8 (8.4-10.2) mg/dL AST 82 H (5-40) units/L ALT 116 H (7-56) units/L Alkaline Phosphatase 97 (35-129) units/L Total Protein 6.5 (6.3-8.2) g/dL Albumin 3.6 L (3.9-5) g/dL Calcium panel 04/28/18 04/28/18 Range/Units 04:35 04:35 Calcium 8.8 (8.4-10.2) mg/dL Albumin 3.6 L (3.9-5) g/dL Pituitary panel 04/28/18 Range/Units 04:35 Sodium 134 L (137-145) mmol/L Potassium 4.0 (3.6-5.0) mmol/L Chloride 96.0 L (98-107) mmol/L Carbon Dioxide 22 (22-30) mmol/L BUN 11 (7-17) mg/dL Creatinine 0.8 (0.7-1.2) mg/dL Glucose 139 H (65-100) mg/dL Calcium 8.8 (8.4-10.2) mg/dL Adrenal panel 04/28/18 04/28/18 Range/Units 04:35 04:35 Sodium 134 L (137-145) mmol/L Potassium 4.0 (3.6-5.0) mmol/L Chloride 96.0 L (98-107) mmol/L Carbon Dioxide 22 (22-30) mmol/L BUN 11 (7-17) mg/dL Creatinine 0.8 (0.7-1.2) mg/dL Glucose 139 H (65-100) mg/dL Calcium 8.8 (8.4-10.2) mg/dL Total Bilirubin 3.80 H (0.1-1.2) mg/dL AST 82 H (5-40) units/L ALT 116 H (7-56) units/L Alkaline Phosphatase 97 (35-129) units/L Total Protein 6.5 (6.3-8.2) g/dL Albumin 3.6 L (3.9-5) g/dL
--- NOTE | 2018-04-28 12:44 | Progress Note ---
Assessment and Plan Currently stable cardiac status. Pt currently in NSR. Cont present cardiac management and plan for conversion to PO regimen after surgery. Pt is currently at moderate cardiovascular risk for contemplated surgery. No immediate cardiac contraindications to proceeding with surgery. The patient has been seen in conjunction with Dr. Coe who agrees with the assessment and plan of care. - Patient Problems (1) Paroxysmal atrial fibrillation with RVR Current Visit: Yes Status: Chronic (2) Cholecystitis Current Visit: Yes Status: Acute (3) GERD (gastroesophageal reflux disease) Current Visit: Yes Status: Chronic (4) Umbilical hernia without mention of obstruction or gangrene Current Visit: Yes Status: Chronic (5) Anxiety Current Visit: Yes Status: Chronic Subjective Date of service: 04/28/18 Principal diagnosis: COPD, Afib w/ RVR Interval history: pt resting in bed, no current cardiac complaints. in SR on telemetry. Objective Last Vital Signs Temp 98.2 F 04/28/18 08:00 Pulse 101 H 04/28/18 12:00 Resp 29 H 04/28/18 12:00 BP 96/74 04/28/18 12:00 Pulse Ox 98 04/28/18 12:00 - Physical Examination General: No Apparent Distress HEENT: Positive: PERRL, Normocephaly, Mucus Membranes Moist Neck: Positive: neck supple, trachea midline Cardiac: Positive: Reg Rate and Rhythm, S1/S2 Lungs: Positive: Decreased Breath Sounds Neuro: Positive: Grossly Intact Abdomen: Positive: Soft Skin: Negative: Rash, Wound Musculoskeletal: No Pain Extremities: Absent: edema - Labs and Meds Cardiac Enzymes 04/28/18 Range/Units 04:35 AST 82 H (5-40) units/L Comprehensive Metabolic Panel 04/28/18 04/28/18 Range/Units 04:35 04:35 Sodium 134 L (137-145) mmol/L Potassium 4.0 (3.6-5.0) mmol/L Chloride 96.0 L (98-107) mmol/L Carbon Dioxide 22 (22-30) mmol/L BUN 11 (7-17) mg/dL Creatinine 0.8 (0.7-1.2) mg/dL Glucose 139 H (65-100) mg/dL Calcium 8.8 (8.4-10.2) mg/dL Direct Bilirubin 1.0 H (0-0.2) mg/dL Indirect Bilirubin 2.8 mg/dL AST 82 H (5-40) units/L ALT 116 H (7-56) units/L Alkaline Phosphatase 97 (35-129) units/L Total Protein 6.5 (6.3-8.2) g/dL Albumin 3.6 L (3.9-5) g/dL
--- NOTE | 2018-04-28 14:25 | Progress Note ---
Assessment and Plan Assessment and plan: 57 year old -[place] female with past medical history significant for mitral valve prolapse, A. fib, systolic CHF, panic attack, GERD, cholecystitis, hernia, tobacco use disorder, COPD presented to the emergency department for complaints of palpitation. Patient says chest palpitation for the last 1 month. Patient subsequently complaining epigastric burning pain which he attributed to her GERD. Patient is also complaining shortness of breath. Patient is admitted a month ago and was treated for A.fib and CHF. Patient was in A. fib with RVR, started on amiodarone drip but couldn't start Cardizem drip because of low blood pressure. Currently undergoing work up and risk assessment for cholecystectomy. Initially noted elevated LFT likely secondary to CHF and for that reason MRCP being held. A fib with RVR, with marginally low blood pressure - Heart rate is controlled, ON Amiodarone drip. - Couldn't start Cardizem drip or beta herrera because of low blood pressure - Cardiology consulted and recommend to continue amiodarone drip - Eliquis on hold for possible surgery, will defer to cardiology if there is a need for heparin drip while eliquis is held Acute on chronic Respiratory failure with Hypoxia -Pulmonary following. Cholecystitis/Hernia - Surgery following Plan for surgery for cholecystectomy Chronic Systolic CHF - Patient doesn't look like and exacerbation - Hold Lasix until blood pressures normalized GERD - We'll start the patient on Protonix Panic attack - Continue Xanax Pericardial effusion - No acute pulmonary compromise COPD without exacerbation/Pulmonary HTN -Pulmonary following DVT prophylaxis - heparin/SCD can move to telemetry. Amiodarone drip. Discussed with family. History Interval history: Patient SEEN AND examined, Still with abdominal pain and occasional increased hr. Shortness of breath still present but improving some. Hospitalist Physical - Physical exam Narrative exam: VITAL SIGNS: Reviewed. GENERAL: The patient appeared well nourished and normally developed. Vital signs as documented. HEAD: No signs of head trauma. EYES: Pupils are equal. Extraocular motions intact. EARS: Hearing grossly intact. MOUTH: Oropharynx is normal. NECK: No adenopathy, no JVD. CHEST: Chest with clear breath sounds bilaterally. No wheezes, rales, or rhonchi. CARDIAC: Irregularly irregular. S1 and S2, without murmurs, gallops, or rubs. VASCULAR: Trace Edema. Peripheral pulses normal and equal in all extremities. ABDOMEN: Soft, without detectable tenderness. No sign of distention. No rebound or guarding, and no masses palpated. Bowel Sounds normal. MUSCULOSKELETAL: Good range of motion of all major joints. Extremities without clubbing, cyanosis. noted trace edema. NEUROLOGIC EXAM: Alert and oriented x 3. No focal sensory or strength deficits. Speech normal. Follows commands. PSYCHIATRIC: Mood normal. SKIN: No rash or lesions. - Constitutional Vitals: Temp Pulse Resp BP Pulse Ox 97.5 F L 90 18 96/74 98 04/28/18 12:00 04/28/18 12:00 04/28/18 12:00 04/28/18 12:00 04/28/18 12:00 Results - Labs CBC & Chem 7: 04/26/18 04:54 04/28/18 04:35 Labs: Laboratory Last Values WBC 10.2 K/mm3 (4.5-11.0) 04/26/18 04:54 RBC 4.00 M/mm3 (3.65-5.03) 04/26/18 04:54 Hgb 11.4 gm/dl (10.1-14.3) 04/26/18 04:54 Hct 33.7 % (30.3-42.9) 04/26/18 04:54 MCV 84 fl (79-97) 04/26/18 04:54 MCH 29 pg (28-32) 04/26/18 04:54 MCHC 34 % (30-34) 04/26/18 04:54 RDW 16.6 % (13.2-15.2) H 04/26/18 04:54 Plt Count 198 K/mm3 (140-440) 04/26/18 04:54 Lymph % (Auto) 29.3 % (13.4-35.0) 04/26/18 04:54 [place] % (Auto) 9.7 % (0.0-7.3) H 04/26/18 04:54 Eos % (Auto) 0.3 % (0.0-4.3) 04/26/18 04:54 Baso % (Auto) 0.7 % (0.0-1.8) 04/26/18 04:54 Lymph # 3.0 K/mm3 (1.2-5.4) 04/26/18 04:54 [place] # 1.0 K/mm3 (0.0-0.8) H 04/26/18 04:54 Eos # 0.0 K/mm3 (0.0-0.4) 04/26/18 04:54 Baso # 0.1 K/mm3 (0.0-0.1) 04/26/18 04:54 Seg Neutrophils % 60.0 % (40.0-70.0) 04/26/18 04:54 Seg Neutrophils # 6.1 K/mm3 (1.8-7.7) 04/26/18 04:54 PT 20.7 Sec. (12.2-14.9) H 04/27/18 04:12 INR 1.66 (0.87-1.13) H 04/27/18 04:12 APTT 29.4 Sec. (24.2-36.6) 04/27/18 04:12 Sodium 134 mmol/L (137-145) L 04/28/18 04:35 Potassium 4.0 mmol/L (3.6-5.0) 04/28/18 04:35 Chloride 96.0 mmol/L (98-107) L 04/28/18 04:35 Carbon Dioxide 22 mmol/L (22-30) 04/28/18 04:35 Anion Gap 20 mmol/L 04/28/18 04:35 BUN 11 mg/dL (7-17) 04/28/18 04:35 Creatinine 0.8 mg/dL (0.7-1.2) 04/28/18 04:35 Estimated GFR > 60 ml/min 04/28/18 04:35 BUN/Creatinine Ratio 14 % 04/28/18 04:35 Glucose 139 mg/dL (65-100) H 04/28/18 04:35 Calcium 8.8 mg/dL (8.4-10.2) 04/28/18 04:35 Magnesium 2.10 mg/dL (1.7-2.3) 04/28/18 04:35 Total Bilirubin 3.80 mg/dL (0.1-1.2) H 04/28/18 04:35 Direct Bilirubin 1.0 mg/dL (0-0.2) H 04/28/18 04:35 Indirect Bilirubin 2.8 mg/dL 04/28/18 04:35 AST 82 units/L (5-40) H 04/28/18 04:35 ALT 116 units/L (7-56) H 04/28/18 04:35 Alkaline Phosphatase 97 units/L (35-129) 04/28/18 04:35 Total Creatine Kinase 82 units/L (30-135) 04/25/18 06:58 CK-MB (CK-2) 1.6 ng/mL (0.0-4.0) 04/25/18 06:58 CK-MB (CK-2) Rel Index 1.9 (0-4) 04/25/18 06:58 Troponin T < 0.010 ng/mL (0.00-0.029) 04/25/18 06:58 NT-Pro-B Natriuret Pep 5335 pg/mL (0-900) H 04/25/18 06:58 Total Protein 6.5 g/dL (6.3-8.2) 04/28/18 04:35 Albumin 3.6 g/dL (3.9-5) L 04/28/18 04:35 Albumin/Globulin Ratio 1.2 % 04/28/18 04:35 TSH 3.070 mlU/mL (0.270-4.200) 04/25/18 06:58 Free T4 2.31 ng/dL (0.76-1.46) H 04/25/18 06:58
[2018-04-28] MEDS: CORDARONE 900 MG in D5W 482 ML IV SCH (14:57)
[2018-04-28] MEDS: PROVENTIL IH PRN (23:22)
[2018-04-29] MEDS: HEPARIN SUB-Q SCH (05:21)
[2018-04-29] MEDS: XANAX PO PRN ×2 (06:12→14:17)
[2018-04-29] MEDS: PERCOCET 5/325 PO PRN ×4 (07:55→21:35)
[2018-04-29] MEDS: PROTONIX PO SCH (10:07)
--- NOTE | 2018-04-29 10:28 | Progress Note ---
Assessment and Plan Pt was unable to complete MRI yesterday due to claustrophobia. Await surgery recommendations regarding cholecystectomy. Pt converted to AFib overnight with HR 110s. Will initiate heparin gtt and plan to resume home Eliquis when okay per surgery. cont amio gtt. The patient has been seen in conjunction with Dr. Coe who agrees with the assessment and plan of care. - Patient Problems (1) Paroxysmal atrial fibrillation with RVR Current Visit: Yes Status: Chronic (2) Cholecystitis Current Visit: Yes Status: Acute (3) GERD (gastroesophageal reflux disease) Current Visit: Yes Status: Chronic (4) Umbilical hernia without mention of obstruction or gangrene Current Visit: Yes Status: Chronic (5) Anxiety Current Visit: Yes Status: Chronic Subjective Date of service: 04/29/18 Principal diagnosis: COPD, Afib w/ RVR Interval history: pt resting in bed, no current cardiac complaints. in AFib on telemetry. Objective Last Vital Signs Temp 98.3 F 04/29/18 07:53 Pulse 103 H 04/29/18 08:03 Resp 18 04/29/18 07:54 BP 90/61 04/29/18 07:54 Pulse Ox 94 04/29/18 07:54 - Physical Examination General: No Apparent Distress HEENT: Positive: PERRL, Normocephaly, Mucus Membranes Moist Neck: Positive: neck supple, trachea midline Cardiac: Positive: irregularly irregular, S1/S2 Lungs: Positive: Decreased Breath Sounds Neuro: Positive: Grossly Intact Abdomen: Positive: Soft Skin: Negative: Rash, Wound Musculoskeletal: No Pain Extremities: Absent: edema - Telemetry EKG Rhythm: Atrial Fibrillation
--- NOTE | 2018-04-29 11:14 | Progress Note ---
Assessment and Plan Imp: 1. Afib w/ RVR, perhaps triggered by cholecystitis 2. Cholecystitis 3. COPD w/o exac. 4. Chronic systolic CHF 5. Pericardial effusion 6. Mitral regurgitation 7. Pulm HTN 2/2 #'s 3-6 8. GERD Rec: 1. Afib per cardiology 2. Moderate risk pulmonary-duarte for cholecystectomy; suspect majority of her risk is cardiac 3. COPD appears stable currently; monitor; no need for systemic steroids 4. PPI 5. On SubQ heparin while Eliquis is held 6. Stop smoking, counseled 7. Further plans pending clinical course Subjective Date of service: 04/29/18 Principal diagnosis: COPD, Afib w/ RVR Interval history: no acute events. Transferred out of unit. HR is not controlled Objective Vital Signs - 12hr 04/28/18 04/28/18 04/29/18 23:22 23:32 04:30 Temperature 98.7 F 98.3 F Pulse Rate 80 102 H Pulse Rate [ 89 86 Anterior Bilateral] Pulse Rate [ From Monitor] Respiratory 16 16 Rate Respiratory 20 18 Rate [Anterior Bilateral] Blood Pressure 96/65 91/62 O2 Sat by Pulse 99 96 Oximetry 04/29/18 04/29/18 04/29/18 07:53 07:54 08:03 Temperature 98.3 F Pulse Rate 103 H Pulse Rate [ Anterior Bilateral] Pulse Rate [ 103 H From Monitor] Respiratory 18 Rate Respiratory Rate [Anterior Bilateral] Blood Pressure 90/61 O2 Sat by Pulse 94 Oximetry 04/29/18 10:00 Temperature Pulse Rate Pulse Rate [ Anterior Bilateral] Pulse Rate [ From Monitor] Respiratory Rate Respiratory Rate [Anterior Bilateral] Blood Pressure O2 Sat by Pulse 97 Oximetry Constitutional: no acute distress, alert Eyes: non-icteric ENT: oropharynx moist Neck: supple Ascultation: Bilateral: clear, diminished breath sounds (bases) Cardiovascular: irregular rhythm (tachy, no r/g; II/ systolic murmur throughout) Gastrointestinal: normoactive bowel sounds, non-distended Integumentary: normal Extremities: no cyanosis, pink and warm, edema (mild or trace, pretibial) Neurologic: normal mental status, non-focal exam, pupils equal and round, CN II- XII normal Psychiatric: mood appropriate, affect normal CBC and BMP: 04/26/18 04:54 04/28/18 04:35 ABG, PT/INR, D-dimer: PT/INR, D-dimer PT 20.7 Sec. (12.2-14.9) H 04/27/18 04:12 INR 1.66 (0.87-1.13) H 04/27/18 04:12 Abnormal lab findings: Abnormal Labs 04/25/18 04/25/18 04/25/18 06:58 06:58 06:58 RDW 16.6 H [place] % (Auto) 9.9 H Baso % (Auto) 2.1 H [place] # Baso # 0.2 H PT INR Sodium 135 L Potassium 3.4 L Chloride 95.2 L BUN 18 H Glucose 126 H Total Bilirubin Direct Bilirubin AST ALT NT-Pro-B Natriuret Pep Total Protein Albumin Free T4 2.31 H 04/25/18 04/26/18 04/26/18 06:58 04:49 04:54 RDW 16.6 H [place] % (Auto) 9.7 H Baso % (Auto) [place] # 1.0 H Baso # PT INR Sodium Potassium Chloride BUN Glucose Total Bilirubin 4.60 H Direct Bilirubin 1.2 H AST 52 H ALT NT-Pro-B Natriuret Pep 5335 H Total Protein 5.8 L Albumin 3.3 L Free T4 04/27/18 04/27/18 04/28/18 04:12 04:12 04:35 RDW [place] % (Auto) Baso % (Auto) [place] # Baso # PT 20.7 H INR 1.66 H Sodium Potassium Chloride BUN Glucose Total Bilirubin 3.60 H 3.80 H Direct Bilirubin 1.1 H 1.0 H AST 62 H 82 H ALT 77 H 116 H NT-Pro-B Natriuret Pep Total Protein 5.9 L Albumin 3.4 L 3.6 L Free T4 04/28/18 04:35 RDW [place] % (Auto) Baso % (Auto) [place] # Baso # PT INR Sodium 134 L Potassium Chloride 96.0 L BUN Glucose 139 H Total Bilirubin Direct Bilirubin AST ALT NT-Pro-B Natriuret Pep Total Protein Albumin Free T4
[2018-04-29] MEDS: HABITROL TD SCH (11:34)
--- NOTE | 2018-04-29 11:39 | Event Note ---
Date: 04/29/18 Patient tentatively scheduled for lap kandi on 05/05 at 10am.
[2018-04-29 11:40] LABS: Hematocrit 35.2 % (30.3-42.9); Hemoglobin 11.4 gm/dl (10.1-14.3)
[2018-04-29 11:51] LABS: INR 1.16 (0.87-1.13)
[2018-04-29 11:52] LABS: Partial Thromboplastin Time 31.7 Sec. (24.2-36.6)
[2018-04-29] MEDS ORDERED: HEPARIN 10,000 UNITS/10 ML IV ONE (13:25)
[2018-04-29] MEDS: HEPARIN/ 0.45% NACL-25,000 UNIT/500 ML 25,000 UNIT/500 ML BAG IV SCH (13:40)
[2018-04-29] MEDS: CORDARONE 900 MG in D5W 482 ML IV SCH (14:18)
--- NOTE | 2018-04-29 17:19 | Progress Note ---
Assessment and Plan Assessment and plan: 57 year old -[place] female with past medical history significant for mitral valve prolapse, A. fib, systolic CHF, panic attack, GERD, cholecystitis, hernia, tobacco use disorder, COPD presented to the emergency department for complaints of palpitation. Patient says chest palpitation for the last 1 month. Patient subsequently complaining epigastric burning pain which he attributed to her GERD. Patient is also complaining shortness of breath. Patient is admitted a month ago and was treated for A.fib and CHF. Patient was in A. fib with RVR, started on amiodarone drip but couldn't start Cardizem drip because of low blood pressure. Currently undergoing work up and risk assessment for cholecystectomy. Initially noted elevated LFT likely secondary to CHF and for that reason MRCP being held. A fib with RVR, with marginally low blood pressure - Heart rate is controlled, ON Amiodarone drip. - Couldn't start Cardizem drip or beta herrera because of low blood pressure - Cardiology consulted and recommend to continue amiodarone drip - Heparin drip started - Eliquis on hold for possible surgery, Acute on chronic Respiratory failure with Hypoxia -Pulmonary following. Cholecystitis/Hernia - Surgery following Plan for surgery for cholecystectomy Chronic Systolic CHF - Patient doesn't look like and exacerbation - Hold Lasix until blood pressures normalized GERD - We'll start the patient on Protonix Panic attack - Continue Xanax Pericardial effusion - No acute pulmonary compromise COPD without exacerbation/Pulmonary HTN -Pulmonary following DVT prophylaxis - heparin/SCD can move to telemetry. Amiodarone drip. Discussed with family. History Interval history: Patient SEEN AND examined, Still with abdominal pain, Shortness of breath still present but improving some. back in afib Hospitalist Physical - Physical exam Narrative exam: VITAL SIGNS: Reviewed. GENERAL: The patient appeared well nourished and normally developed. Vital si gns as documented. HEAD: No signs of head trauma. EYES: Pupils are equal. Extraocular motions intact. EARS: Hearing grossly intact. MOUTH: Oropharynx is normal. NECK: No adenopathy, no JVD. CHEST: Chest with clear breath sounds bilaterally. No wheezes, rales, or rhonchi. CARDIAC: Irregularly irregular. S1 and S2, without murmurs, gallops, or rubs. VASCULAR: Trace Edema. Peripheral pulses normal and equal in all extremities. ABDOMEN: Soft, without detectable tenderness. No sign of distention. No rebound or guarding, and no masses palpated. Bowel Sounds normal. MUSCULOSKELETAL: Good range of motion of all major joints. Extremities without clubbing, cyanosis. noted trace edema. NEUROLOGIC EXAM: Alert and oriented x 3. No focal sensory or strength deficits. Speech normal. Follows commands. PSYCHIATRIC: Mood normal. SKIN: No rash or lesions. - Constitutional Vitals: Temp Pulse Resp BP Pulse Ox 98.5 F 134 H 20 117/90 96 04/29/18 16:22 04/29/18 16:19 04/29/18 16:19 04/29/18 16:19 04/29/18 16:19 Results - Labs CBC & Chem 7: 04/29/18 11:07 04/28/18 04:35 Labs: Laboratory Last Values WBC 10.2 K/mm3 (4.5-11.0) 04/26/18 04:54 RBC 4.00 M/mm3 (3.65-5.03) 04/26/18 04:54 Hgb 11.4 gm/dl (10.1-14.3) 04/29/18 11:07 Hct 35.2 % (30.3-42.9) 04/29/18 11:07 MCV 84 fl (79-97) 04/26/18 04:54 MCH 29 pg (28-32) 04/26/18 04:54 MCHC 34 % (30-34) 04/26/18 04:54 RDW 16.6 % (13.2-15.2) H 04/26/18 04:54 Plt Count 210 K/mm3 (140-440) 04/29/18 11:07 Lymph % (Auto) 29.3 % (13.4-35.0) 04/26/18 04:54 [place] % (Auto) 9.7 % (0.0-7.3) H 04/26/18 04:54 Eos % (Auto) 0.3 % (0.0-4.3) 04/26/18 04:54 Baso % (Auto) 0.7 % (0.0-1.8) 04/26/18 04:54 Lymph # 3.0 K/mm3 (1.2-5.4) 04/26/18 04:54 [place] # 1.0 K/mm3 (0.0-0.8) H 04/26/18 04:54 Eos # 0.0 K/mm3 (0.0-0.4) 04/26/18 04:54 Baso # 0.1 K/mm3 (0.0-0.1) 04/26/18 04:54 Seg Neutrophils % 60.0 % (40.0-70.0) 04/26/18 04:54 Seg Neutrophils # 6.1 K/mm3 (1.8-7.7) 04/26/18 04:54 PT 15.5 Sec. (12.2-14.9) H 04/29/18 11:07 INR 1.16 (0.87-1.13) H 04/29/18 11:07 APTT 31.7 Sec. (24.2-36.6) 04/29/18 11:07 Sodium 134 mmol/L (137-145) L 04/28/18 04:35 Potassium 4.0 mmol/L (3.6-5.0) 04/28/18 04:35 Chloride 96.0 mmol/L (98-107) L 04/28/18 04:35 Carbon Dioxide 22 mmol/L (22-30) 04/28/18 04:35 Anion Gap 20 mmol/L 04/28/18 04:35 BUN 11 mg/dL (7-17) 04/28/18 04:35 Creatinine 0.8 mg/dL (0.7-1.2) 04/28/18 04:35 Estimated GFR > 60 ml/min 04/28/18 04:35 BUN/Creatinine Ratio 14 % 04/28/18 04:35 Glucose 139 mg/dL (65-100) H 04/28/18 04:35 Calcium 8.8 mg/dL (8.4-10.2) 04/28/18 04:35 Magnesium 2.10 mg/dL (1.7-2.3) 04/28/18 04:35 Total Bilirubin 3.80 mg/dL (0.1-1.2) H 04/28/18 04:35 Direct Bilirubin 1.0 mg/dL (0-0.2) H 04/28/18 04:35 Indirect Bilirubin 2.8 mg/dL 04/28/18 04:35 AST 82 units/L (5-40) H 04/28/18 04:35 ALT 116 units/L (7-56) H 04/28/18 04:35 Alkaline Phosphatase 97 units/L (35-129) 04/28/18 04:35 Total Creatine Kinase 82 units/L (30-135) 04/25/18 06:58 CK-MB (CK-2) 1.6 ng/mL (0.0-4.0) 04/25/18 06:58 CK-MB (CK-2) Rel Index 1.9 (0-4) 04/25/18 06:58 Troponin T < 0.010 ng/mL (0.00-0.029) 04/25/18 06:58 NT-Pro-B Natriuret Pep 5335 pg/mL (0-900) H 04/25/18 06:58 Total Protein 6.5 g/dL (6.3-8.2) 04/28/18 04:35 Albumin 3.6 g/dL (3.9-5) L 04/28/18 04:35 Albumin/Globulin Ratio 1.2 % 04/28/18 04:35 TSH 3.070 mlU/mL (0.270-4.200) 04/25/18 06:58 Free T4 2.31 ng/dL (0.76-1.46) H 04/25/18 06:58
[2018-04-29] MEDS: PROVENTIL IH PRN (19:28)
[2018-04-29] MEDS: PEPCID PO SCH (21:35)
[2018-04-30] MEDS: XANAX PO PRN (01:12)
[2018-04-30] MEDS: ZOFRAN IV PRN ×3 (04:12→14:45)
--- NOTE | 2018-04-30 09:59 | Progress Note ---
Assessment and Plan Pt remains in AFib with bouts of RVR while vomiting this AM. Per general surgery, pt tentatively scheduled for lap kandi on 05/05 at 10am. Pt requesting earlier date for surgery. Dr. Ames to confirm date with Dr. Schneider. Cont amio gtt and consider addition of BB or CCB if/when BPs permit. Cont heparin gtt and plan to resume home Eliquis when okay per surgery. The patient has been seen in conjunction with Dr. Coe who agrees with the assessment and plan of care. - Patient Problems (1) Paroxysmal atrial fibrillation with RVR Current Visit: Yes Status: Chronic (2) Cholecystitis Current Visit: Yes Status: Acute (3) GERD (gastroesophageal reflux disease) Current Visit: Yes Status: Chronic (4) Umbilical hernia without mention of obstruction or gangrene Current Visit: Yes Status: Chronic (5) Anxiety Current Visit: Yes Status: Chronic Subjective Date of service: 04/30/18 Principal diagnosis: COPD, Afib w/ RVR Interval history: pt sitting at bedside, c/o nausea and vomiting this AM, no current cardiac complaints. in AFib on telemetry with bouts of RVR while vomiting this AM. Objective Last Vital Signs Temp 97.2 F L 04/30/18 04:49 Pulse 117 H 04/30/18 04:49 Resp 24 04/30/18 04:49 BP 100/72 04/30/18 04:49 Pulse Ox 92 04/30/18 04:49 - Physical Examination General: No Apparent Distress HEENT: Positive: PERRL, Normocephaly, Mucus Membranes Moist Neck: Positive: neck supple, trachea midline Cardiac: Positive: irregularly irregular, S1/S2 Lungs: Positive: Decreased Breath Sounds Neuro: Positive: Grossly Intact Abdomen: Positive: Soft Skin: Negative: Rash, Wound Musculoskeletal: No Pain Extremities: Absent: edema - Labs and Meds Coagulation 04/29/18 Range/Units 11:07 PT 15.5 H (12.2-14.9) Sec. INR 1.16 H (0.87-1.13) APTT 31.7 (24.2-36.6) Sec. CBC 04/29/18 Range/Units 11:07 Hgb 11.4 (10.1-14.3) gm/dl Hct 35.2 (30.3-42.9) % Plt Count 210 (140-440) K/mm3
[2018-04-30] MEDS ORDERED: MORPHINE IV ONE (10:08)
[2018-04-30] MEDS: HABITROL TD SCH (10:43)
[2018-04-30] MEDS: PEPCID PO SCH ×2 (10:43→21:37)
[2018-04-30] MEDS ORDERED: DILAUDID IV ONE (11:00)
[2018-04-30] MEDS ORDERED: CEPHULAC PO ONE (11:08)
[2018-04-30] MEDS ORDERED: DILAUDID IV PRN (11:10)
--- NOTE | 2018-04-30 11:19 | XRay Report ---
AP ABDOMEN: HISTORY: Abdominal pain. The abdominal gas pattern is unremarkable. No masses or organomegaly is identified and there is no gross evidence of free air or fluid. No significant soft tissue calcifications are noted. IMPRESSION: Unremarkable abdomen.
--- NOTE | 2018-04-30 11:50 | Progress Note ---
Assessment and Plan Imp: 1. Afib w/ RVR, perhaps triggered by cholecystitis 2. Cholecystitis 3. COPD w/o exac. 4. Chronic systolic CHF 5. Pericardial effusion 6. Mitral regurgitation 7. Pulm HTN 2/2 #'s 3-6 8. GERD No new recs for today. Will see as needed over the weekend. Rec: 1. Afib per cardiology 2. Moderate risk pulmonary-duarte for cholecystectomy; suspect majority of her risk is cardiac 3. COPD appears stable currently; monitor; no need for systemic steroids 4. PPI 5. On SubQ heparin while Eliquis is held 6. Stop smoking, counseled 7. Further plans pending clinical course Subjective Date of service: 04/30/18 Principal diagnosis: COPD, Afib w/ RVR Interval history: No acute events. Remains on nasal cannula at 2 liters. Surgery scheduled for next week. Otherwise pulm status is stable. Objective Vital Signs - 12hr 04/30/18 04/30/18 04:49 11:31 Temperature 97.2 F L Pulse Rate 117 H Respiratory 24 Rate Blood Pressure 100/72 O2 Sat by Pulse 92 95 Oximetry Constitutional: no acute distress, alert Eyes: non-icteric ENT: oropharynx moist Neck: supple Ascultation: Bilateral: clear, diminished breath sounds (bases) Cardiovascular: irregular rhythm (tachy, no r/g; II/ systolic murmur throughout) Gastrointestinal: normoactive bowel sounds, non-distended Integumentary: normal Extremities: no cyanosis, pink and warm, edema (mild or trace, pretibial) Neurologic: normal mental status, non-focal exam, pupils equal and round, CN II- XII normal Psychiatric: mood appropriate, affect normal CBC and BMP: 04/29/18 11:07 04/28/18 04:35 ABG, PT/INR, D-dimer: PT/INR, D-dimer PT 15.5 Sec. (12.2-14.9) H 04/29/18 11:07 INR 1.16 (0.87-1.13) H 04/29/18 11:07 Abnormal lab findings: Abnormal Labs 04/25/18 04/25/18 04/25/18 06:58 06:58 06:58 RDW 16.6 H [place] % (Auto) 9.9 H Baso % (Auto) 2.1 H [place] # Baso # 0.2 H PT INR Heparin Anti-Xa Level Sodium 135 L Potassium 3.4 L Chloride 95.2 L BUN 18 H Glucose 126 H Total Bilirubin Direct Bilirubin AST ALT NT-Pro-B Natriuret Pep Total Protein Albumin Free T4 2.31 H 04/25/18 04/26/18 04/26/18 06:58 04:49 04:54 RDW 16.6 H [place] % (Auto) 9.7 H Baso % (Auto) [place] # 1.0 H Baso # PT INR Heparin Anti-Xa Level Sodium Potassium Chloride BUN Glucose Total Bilirubin 4.60 H Direct Bilirubin 1.2 H AST 52 H ALT NT-Pro-B Natriuret Pep 5335 H Total Protein 5.8 L Albumin 3.3 L Free T4 04/27/18 04/27/18 04/28/18 04:12 04:12 04:35 RDW [place] % (Auto) Baso % (Auto) [place] # Baso # PT 20.7 H INR 1.66 H Heparin Anti-Xa Level Sodium Potassium Chloride BUN Glucose Total Bilirubin 3.60 H 3.80 H Direct Bilirubin 1.1 H 1.0 H AST 62 H 82 H ALT 77 H 116 H NT-Pro-B Natriuret Pep Total Protein 5.9 L Albumin 3.4 L 3.6 L Free T4 04/28/18 04/29/18 04/29/18 04:35 11:07 20:03 RDW [place] % (Auto) Baso % (Auto) [place] # Baso # PT 15.5 H INR 1.16 H Heparin Anti-Xa Level 1.24 H Sodium 134 L Potassium Chloride 96.0 L BUN Glucose 139 H Total Bilirubin Direct Bilirubin AST ALT NT-Pro-B Natriuret Pep Total Protein Albumin Free T4 04/30/18 06:16 RDW [place] % (Auto) Baso % (Auto) [place] # Baso # PT INR Heparin Anti-Xa Level 0.99 H Sodium Potassium Chloride BUN Glucose Total Bilirubin Direct Bilirubin AST ALT NT-Pro-B Natriuret Pep Total Protein Albumin Free T4
--- NOTE | 2018-04-30 14:49 | Progress Note ---
Assessment and Plan Assessment and plan: 57 year old -[place] female with past medical history significant for mitral valve prolapse, A. fib, systolic CHF, panic attack, GERD, cholecystitis, hernia, tobacco use disorder, COPD presented to the emergency department for complaints of palpitation. Patient says chest palpitation for the last 1 month. Patient subsequently complaining epigastric burning pain which he attributed to her GERD. Patient is also complaining shortness of breath. Patient is admitted a month ago and was treated for A.fib and CHF. Patient was in A. fib with RVR, started on amiodarone drip but couldn't start Cardizem drip because of low blood pressure. Currently undergoing work up and risk assessment for cholecystectomy. Initially noted elevated LFT likely secondary to CHF and for that reason MRCP being held. A fib with RVR, with marginally low blood pressure - Heart rate is controlled, ON Amiodarone drip. - cardiology re-evaluating CCB - Cardiology consulted and recommend to continue amiodarone drip - Heparin drip started - Eliquis on hold for possible surgery, Acute on chronic Respiratory failure with Hypoxia -Pulmonary following. Cholecystitis/umbilical Hernia/Abdominal pain - PAIN CONTROL - EVALUATE FOR FURTHER HEPATIC CONGESTION - CHECK LACTATE LEVEL - Surgery following Plan for surgery for cholecystectomy Chronic Systolic CHF - Patient doesn't look like and exacerbation - Hold Lasix until blood pressures normalized GERD - We'll start the patient on Protonix Panic attack/Anixety - Continue Xanax Pericardial effusion - No acute pulmonary compromise Passive Hepatic Congestion - Likely secondary to underlying heart failure COPD without exacerbation/Pulmonary HTN -Pulmonary following DVT prophylaxis - heparin/SCD Discussed with family and patient. History Interval history: Patient SEEN AND examined, Still with abdominal pain worse today and more generalized. Shortness of breath still present but improving some. Hospitalist Physical - Physical exam Narrative exam: VITAL SIGNS: Reviewed. GENERAL: The patient appeared well nourished and normally developed. Vital signs as documented. HEAD: No signs of head trauma. EYES: Pupils are equal. Extraocular motions intact. EARS: Hearing grossly intact. MOUTH: Oropharynx is normal. NECK: No adenopathy, no JVD. CHEST: Chest with clear breath sounds bilaterally. No wheezes, rales, or rhonchi. CARDIAC: Irregularly irregular. S1 and S2, without murmurs, gallops, or rubs. VASCULAR: Trace Edema. Peripheral pulses normal and equal in all extremities. ABDOMEN: Soft,Tender to palpation. No sign of distention. No rebound or guarding, and no masses palpated. Bowel Sounds normal. MUSCULOSKELETAL: Good range of motion of all major joints. Extremities without clubbing, cyanosis. noted trace edema. NEUROLOGIC EXAM: Alert and oriented x 3. No focal sensory or strength deficits. Speech normal. Follows commands. PSYCHIATRIC: Mood normal. SKIN: No rash or lesions. - Constitutional Vitals: Temp Pulse Resp BP Pulse Ox 97.2 F L 122 H 24 100/72 95 04/30/18 04:49 04/30/18 10:00 04/30/18 04:49 04/30/18 04:49 04/30/18 11:31 Results - Labs CBC & Chem 7: 04/29/18 11:07 04/28/18 04:35 Labs: Laboratory Last Values WBC 10.2 K/mm3 (4.5-11.0) 04/26/18 04:54 RBC 4.00 M/mm3 (3.65-5.03) 04/26/18 04:54 Hgb 11.4 gm/dl (10.1-14.3) 04/29/18 11:07 Hct 35.2 % (30.3-42.9) 04/29/18 11:07 MCV 84 fl (79-97) 04/26/18 04:54 MCH 29 pg (28-32) 04/26/18 04:54 MCHC 34 % (30-34) 04/26/18 04:54 RDW 16.6 % (13.2-15.2) H 04/26/18 04:54 Plt Count 210 K/mm3 (140-440) 04/29/18 11:07 Lymph % (Auto) 29.3 % (13.4-35.0) 04/26/18 04:54 [place] % (Auto) 9.7 % (0.0-7.3) H 04/26/18 04:54 Eos % (Auto) 0.3 % (0.0-4.3) 04/26/18 04:54 Baso % (Auto) 0.7 % (0.0-1.8) 04/26/18 04:54 Lymph # 3.0 K/mm3 (1.2-5.4) 04/26/18 04:54 [place] # 1.0 K/mm3 (0.0-0.8) H 04/26/18 04:54 Eos # 0.0 K/mm3 (0.0-0.4) 04/26/18 04:54 Baso # 0.1 K/mm3 (0.0-0.1) 04/26/18 04:54 Seg Neutrophils % 60.0 % (40.0-70.0) 04/26/18 04:54 Seg Neutrophils # 6.1 K/mm3 (1.8-7.7) 04/26/18 04:54 PT 15.5 Sec. (12.2-14.9) H 04/29/18 11:07 INR 1.16 (0.87-1.13) H 04/29/18 11:07 APTT 31.7 Sec. (24.2-36.6) 04/29/18 11:07 Heparin Anti-Xa Level 0.99 U.I./ml (0.3-0.7) H 04/30/18 06:16 Sodium 134 mmol/L (137-145) L 04/28/18 04:35 Potassium 4.0 mmol/L (3.6-5.0) 04/28/18 04:35 Chloride 96.0 mmol/L (98-107) L 04/28/18 04:35 Carbon Dioxide 22 mmol/L (22-30) 04/28/18 04:35 Anion Gap 20 mmol/L 04/28/18 04:35 BUN 11 mg/dL (7-17) 04/28/18 04:35 Creatinine 0.8 mg/dL (0.7-1.2) 04/28/18 04:35 Estimated GFR > 60 ml/min 04/28/18 04:35 BUN/Creatinine Ratio 14 % 04/28/18 04:35 Glucose 139 mg/dL (65-100) H 04/28/18 04:35 Calcium 8.8 mg/dL (8.4-10.2) 04/28/18 04:35 Magnesium 2.10 mg/dL (1.7-2.3) 04/28/18 04:35 Total Bilirubin 3.80 mg/dL (0.1-1.2) H 04/28/18 04:35 Direct Bilirubin 1.0 mg/dL (0-0.2) H 04/28/18 04:35 Indirect Bilirubin 2.8 mg/dL 04/28/18 04:35 AST 82 units/L (5-40) H 04/28/18 04:35 ALT 116 units/L (7-56) H 04/28/18 04:35 Alkaline Phosphatase 97 units/L (35-129) 04/28/18 04:35 Total Creatine Kinase 82 units/L (30-135) 04/25/18 06:58 CK-MB (CK-2) 1.6 ng/mL (0.0-4.0) 04/25/18 06:58 CK-MB (CK-2) Rel Index 1.9 (0-4) 04/25/18 06:58 Troponin T < 0.010 ng/mL (0.00-0.029) 04/25/18 06:58 NT-Pro-B Natriuret Pep 5335 pg/mL (0-900) H 04/25/18 06:58 Total Protein 6.5 g/dL (6.3-8.2) 04/28/18 04:35 Albumin 3.6 g/dL (3.9-5) L 04/28/18 04:35 Albumin/Globulin Ratio 1.2 % 04/28/18 04:35 TSH 3.070 mlU/mL (0.270-4.200) 04/25/18 06:58 Free T4 2.31 ng/dL (0.76-1.46) H 04/25/18 06:58 Nutrition/Malnutrition Assess - Dietary Evaluation Nutrition/Malnutrition Findings: Nutrition Notes Start: 04/30/18 10:40 Freq: Status: Active Protocol: Document 04/30/18 10:40 ER (Rec: 04/30/18 10:53 ER [id number]) Co-Sign 04/30/18 10:40 LP Nutrition Notes Need for Assessment generated from: LOS Initial or Follow up Assessment Current Diagnosis Heart Failure Other Pertinent Diagnosis A. fib., Cholecystitis, GERD, anxiety Current Diet Cardiac Diet Labs/Tests Na 134 Pertinent Medications Heparin Height 5 ft 3 in Weight 59.7 kg Usual Body Weight 61 kg [place] Body Weight (kg) 52.27 BMI 23.3 Intake Prior to Admission Good Weight Status Appropriate Subjective/Other Information Screen for LOS. Pt. eating <50 % of meals and has had a poor appetite x3days. Pt. has abd cramping today and does not have an appetite. Pt. thinks pain is from eating a salad last night. Pt. has nausea and vomiting for the past day. Pt . stated she has been eating moses crackers and drinking water. Pt. food preferences noted in diet order. Pt. would like to have one Ensure Enlive a day until appetite returns. Burn Absent Trauma Absent GI Symptoms Nausea Vomiting Food Allergy No Current % PO Fair (50-74%) Minimum of two criteria No #1 Nutrition Diagnosis Inadequate energy intake Etiology decreased appetite As Evidenced by Signs and Symptoms pt. eating <50% of energy needs x3days, N/V Is patient on ventilator? No Is Patient Ambulatory and/or Out of Bed Yes REE-([facility]-ambulatory/OOB) [ 1509.469 [id number]] Calculation Used for Recommendations [facility] Additional Notes Protein needs: 48-60g (0.8-1g/ kg) Fluid needs: 1 mL/kcal Nutrition Intervention Change Diet Order: Continue Cardiac; add Ensure Enlive once daily Add Supplement/Snack (indicate name/kcal Ensure Enlive once daily ( /protein ) chocolate) Provides kCal: 350 Provides Protein (gm) 20 Goal #1 Pt. to meet at least 75% of energy and protein needs through PO and ONS intakes. Goal #2 ONS tolerance Anticipated Discharge Needs: Cardiac Diet Follow-Up By: 05/03/18 Additional Comments f/u: PO and ONS Intakes
--- NOTE | 2018-04-30 17:09 | Progress Note ---
Assessment and Plan - Patient Problems (1) Cholecystitis Current Visit: Yes Status: Acute Plan to address problem: Pt stable. Chronic cholecystitis. I came by earlier to get consent. Pt reported that she was having more generalized pain now. Pain goes into chest. Abd X-ray neg. Discussed with Dr. Ames. Does not appear to be related to gallbladder or primary abdominal process. Worried that this is related to CHF decompensation -- increased SOB, congested breath sounds, fullness in abdomen, pitting edema in lower extremities. Discussed getting a CT of abd and having cards give an opinion. LFTs ordered. Would get other labs in AM unless she gets worse tonight. Vitals appeared stable. Does not seem like ischemic gut. Please call with questions. Time=15min (2) Umbilical hernia without mention of obstruction or gangrene Current Visit: Yes Status: Chronic Plan to address problem: Pt stable. Patient is symptomatic from this moderate sized hernia. There are no signs of any compromise of the umbilical skin at this time. This is something that we will repair at the time of her cholecystectomy. Subjective Date of service: 04/30/18 Patient Reports: Positive: still having pain (having more pain since having a salad last evening. ), nausea (mild), other (feels more swollen. Having more SOB) Objective Vital Signs - 12hr 04/30/18 04/30/18 04/30/18 10:00 11:31 16:32 Pulse Rate 122 H 90 Blood Pressure 102/73 O2 Sat by Pulse 95 88 Oximetry - General physical appearance moderate pain - Eyes normal occular movement - Respiratory other (breath sounds are more congested) - Abdomen soft, tender (throughout), distended (mild), not guarding, not rigid, other (no pelvic shake tenderness. ) Hernia: umbilical (no herniated contents. ) - Integumentary no rash, no growths, no abnormal pigmentation - Psychiatric oriented to time, oriented to person, oriented to place, speech is normal, memory intact - Labs 04/29/18 11:07 04/28/18 04:35
[2018-04-30] MEDS ORDERED: COMPAZINE PO ONE (18:32)
[2018-04-30 18:59] LABS: Albumin 3.6 g/dL (3.9-5); Bilirubin,Direct 1.5 mg/dL (0-0.2)
[2018-04-30] MEDS: CORDARONE 900 MG in D5W 482 ML IV SCH (21:36)
[2018-05-01] MEDS: XANAX PO PRN ×2 (01:12→21:21)
[2018-05-01] MEDS: ZOFRAN IV PRN ×2 (01:12→18:55)
[2018-05-01] MEDS: HEPARIN/ 0.45% NACL-25,000 UNIT/500 ML 25,000 UNIT/500 ML BAG IV SCH (05:19)
[2018-05-01 06:25] LABS: Hematocrit 33.4 % (30.3-42.9); Hemoglobin 10.8 gm/dl (10.1-14.3); Mean Corpuscular HGB Conc 32 % (30-34); Mean Corpuscular Volume 85 fl (79-97); Platelet Count 211 K/mm3 (140-440); Red Blood Count 3.92 M/mm3 (3.65-5.03); Red Cell Distribution Width 16.8 % (13.2-15.2)
[2018-05-01 06:49] LABS: Alanine Aminotransferase 76 units/L (7-56); Albumin 3.4 g/dL (3.9-5); BUN/Creatinine Ratio 15; Bilirubin,Direct 1.8 mg/dL (0-0.2); Blood Urea Nitrogen 17 mg/dL (7-17); Calcium 8.6 mg/dL (8.4-10.2); Hemolysis Index 2
[2018-05-01] MEDS: PEPCID PO SCH ×2 (09:05→21:20)
[2018-05-01] MEDS: HABITROL TD SCH (09:05)
--- NOTE | 2018-05-01 10:36 | Progress Note ---
Assessment and Plan Pt remains in AFib with bouts of RVR while vomiting this AM. Per general surgery, pt tentatively scheduled for lap kandi on 05/05 at 10am. Pt requesting earlier date for surgery. Dr. Ames to confirm date with Dr. Schneider. Cont amio gtt and add ccb today. Cont heparin gtt and plan to resume home Eliquis when okay per surgery. - Patient Problems (1) Atrial fibrillation with rapid ventricular response Current Visit: Yes Status: Acute (2) Cholecystitis Current Visit: Yes Status: Acute (3) Anxiety Current Visit: Yes Status: Chronic (4) GERD (gastroesophageal reflux disease) Current Visit: Yes Status: Chronic (5) Paroxysmal atrial fibrillation with RVR Current Visit: Yes Status: Chronic (6) Umbilical hernia without mention of obstruction or gangrene Current Visit: Yes Status: Chronic (7) Acute and chronic respiratory failure ([id number]) Current Visit: No Status: Acute Subjective Date of service: 05/01/18 Principal diagnosis: COPD, Afib w/ RVR Interval history: feels better Objective Vital Signs Temp Pulse Resp BP Pulse Ox 05/01/18 07:37 97.9 F 79 18 113/76 97 05/01/18 05:08 98.4 F 107 H 18 125/75 96 04/30/18 23:58 98.1 F 89 18 117/76 93 04/30/18 22:00 116 H 04/30/18 21:16 95 04/30/18 19:23 98.2 F 72 18 144/87 96 04/30/18 16:32 90 102/73 88 04/30/18 11:31 95 - Physical Examination General: No Apparent Distress HEENT: Positive: PERRL, Normocephaly, Mucus Membranes Moist Neck: Positive: neck supple, trachea midline Neuro: Positive: Grossly Intact Abdomen: Positive: Soft Skin: Negative: Rash, Wound Musculoskeletal: No Pain Extremities: Absent: edema - Labs and Meds Cardiac Enzymes 04/30/18 05/01/18 Range/Units 18:19 04:20 AST 42 H 41 H (5-40) units/L CBC 05/01/18 Range/Units 04:20 WBC 12.9 H (4.5-11.0) K/mm3 RBC 3.92 (3.65-5.03) M/mm3 Hgb 10.8 (10.1-14.3) gm/dl Hct 33.4 (30.3-42.9) % Plt Count 211 (140-440) K/mm3 Comprehensive Metabolic Panel 04/30/18 05/01/18 Range/Units 18:19 04:20 Sodium 130 L (137-145) mmol/L Potassium 4.3 (3.6-5.0) mmol/L Chloride 91.1 L (98-107) mmol/L Carbon Dioxide 21 L (22-30) mmol/L BUN 17 (7-17) mg/dL Creatinine 1.1 (0.7-1.2) mg/dL Glucose 132 H (65-100) mg/dL Calcium 8.6 (8.4-10.2) mg/dL Direct Bilirubin 1.5 H 1.8 H (0-0.2) mg/dL Indirect Bilirubin 3.4 3.1 mg/dL AST 42 H 41 H (5-40) units/L ALT 88 H 76 H (7-56) units/L Alkaline Phosphatase 100 83 (35-129) units/L Total Protein 6.9 6.1 L (6.3-8.2) g/dL Albumin 3.6 L 3.4 L (3.9-5) g/dL
--- NOTE | 2018-05-01 13:48 | Progress Note ---
Assessment and Plan (1) Cholecystitis Current Visit: Yes Status: Acute Plan to address problem: Pt stable. Chronic cholecystitis. Elevated LFTs mostly indirect and likely related to liver congestion from CHF. Will continue to trend. Cholecystectomy scheduled for Friday 05/05. Continue clear liquids until then, IVF, PRN Pain control. (2) Umbilical hernia without mention of obstruction or gangrene Current Visit: Yes Status: Chronic Plan to address problem: Pt stable. Patient is symptomatic from this moderate sized hernia. This is something that will be repaired at the time of her cholecystectomy per Dr. Schneider Thank you, please call with questions. Subjective Date of service: 05/01/18 Narrative: Pt seen and examined. States she is feeling better today. Abdominal pain is baseline. She denies n/v since last night. She is tolerating clear liquids. No f/c. Objective Vital Signs - 12hr 05/01/18 05/01/18 05/01/18 05:08 07:37 10:00 Temperature 98.4 F 97.9 F Pulse Rate 107 H 79 Pulse Rate [ 115 H From Monitor] Respiratory 18 18 20 Rate Blood Pressure 125/75 113/76 O2 Sat by Pulse 96 97 95 Oximetry 05/01/18 11:42 Temperature Pulse Rate 129 H Pulse Rate [ From Monitor] Respiratory Rate Blood Pressure 113/74 O2 Sat by Pulse 95 Oximetry - General physical appearance Narrative Exam: Gen: AAOx3. NAD CV: S1, S2+ resp: even and unlabored Abd: soft, ND, + RUQ and mid abdominal TTP. umbilical hernia is reducible but protrudes after reducing. No r/r/g. Ext; no c/c/e - Labs 05/01/18 04:20 05/01/18 04:20 Diabetes panel 04/30/18 05/01/18 Range/Units 18:19 04:20 Sodium 130 L (137-145) mmol/L Potassium 4.3 (3.6-5.0) mmol/L Chloride 91.1 L (98-107) mmol/L Carbon Dioxide 21 L (22-30) mmol/L BUN 17 (7-17) mg/dL Creatinine 1.1 (0.7-1.2) mg/dL Glucose 132 H (65-100) mg/dL Calcium 8.6 (8.4-10.2) mg/dL AST 42 H 41 H (5-40) units/L ALT 88 H 76 H (7-56) units/L Alkaline Phosphatase 100 83 (35-129) units/L Total Protein 6.9 6.1 L (6.3-8.2) g/dL Albumin 3.6 L 3.4 L (3.9-5) g/dL Calcium panel 04/30/18 05/01/18 Range/Units 18:19 04:20 Calcium 8.6 (8.4-10.2) mg/dL Albumin 3.6 L 3.4 L (3.9-5) g/dL Pituitary panel 05/01/18 Range/Units 04:20 Sodium 130 L (137-145) mmol/L Potassium 4.3 (3.6-5.0) mmol/L Chloride 91.1 L (98-107) mmol/L Carbon Dioxide 21 L (22-30) mmol/L BUN 17 (7-17) mg/dL Creatinine 1.1 (0.7-1.2) mg/dL Glucose 132 H (65-100) mg/dL Calcium 8.6 (8.4-10.2) mg/dL Adrenal panel 04/30/18 05/01/18 Range/Units 18:19 04:20 Sodium 130 L (137-145) mmol/L Potassium 4.3 (3.6-5.0) mmol/L Chloride 91.1 L (98-107) mmol/L Carbon Dioxide 21 L (22-30) mmol/L BUN 17 (7-17) mg/dL Creatinine 1.1 (0.7-1.2) mg/dL Glucose 132 H (65-100) mg/dL Calcium 8.6 (8.4-10.2) mg/dL Total Bilirubin 4.90 H 4.90 H (0.1-1.2) mg/dL AST 42 H 41 H (5-40) units/L ALT 88 H 76 H (7-56) units/L Alkaline Phosphatase 100 83 (35-129) units/L Total Protein 6.9 6.1 L (6.3-8.2) g/dL Albumin 3.6 L 3.4 L (3.9-5) g/dL
--- NOTE | 2018-05-01 13:49 | Progress Note ---
Assessment and Plan Imp: 1. Afib w/ RVR, perhaps triggered by cholecystitis 2. Cholecystitis 3. COPD w/o exac. 4. Chronic systolic CHF 5. Pericardial effusion 6. Mitral regurgitation 7. Pulm HTN 2/2 #'s 3-6 8. GERD No new recs for today. Will see as needed over the weekend. Rec: 1. Afib per cardiology 2. Moderate risk pulmonary-duarte for cholecystectomy; suspect majority of her risk is cardiac 3. COPD appears stable currently; monitor; no need for systemic steroids 4. PPI 5. On SubQ heparin while Eliquis is held 6. Stop smoking, counseled 7. Further plans pending clinical course Subjective Date of service: 05/01/18 Principal diagnosis: COPD, Afib w/ RVR Interval history: Pt doing well, no significant SOB still c/o abd pain Objective Vital Signs - 12hr 05/01/18 05/01/18 05/01/18 05:08 07:37 10:00 Temperature 98.4 F 97.9 F Pulse Rate 107 H 79 Pulse Rate [ 115 H From Monitor] Respiratory 18 18 20 Rate Blood Pressure 125/75 113/76 O2 Sat by Pulse 96 97 95 Oximetry 05/01/18 11:42 Temperature Pulse Rate 129 H Pulse Rate [ From Monitor] Respiratory Rate Blood Pressure 113/74 O2 Sat by Pulse 95 Oximetry Constitutional: no acute distress, alert Eyes: non-icteric ENT: oropharynx moist Neck: supple Ascultation: Bilateral: clear, diminished breath sounds (bases) Cardiovascular: irregular rhythm (tachy, no r/g; II/ systolic murmur throughout) Gastrointestinal: normoactive bowel sounds, non-distended Integumentary: normal Extremities: no cyanosis, pink and warm, edema (mild or trace, pretibial) Neurologic: normal mental status, non-focal exam, pupils equal and round, CN II- XII normal Psychiatric: mood appropriate, affect normal CBC and BMP: 05/01/18 04:20 05/01/18 04:20 ABG, PT/INR, D-dimer: PT/INR, D-dimer PT 15.5 Sec. (12.2-14.9) H 04/29/18 11:07 INR 1.16 (0.87-1.13) H 04/29/18 11:07 Abnormal lab findings: Abnormal Labs 04/25/18 04/25/18 04/25/18 06:58 06:58 06:58 WBC RDW 16.6 H [place] % (Auto) 9.9 H Baso % (Auto) 2.1 H [place] # Baso # 0.2 H PT INR Heparin Anti-Xa Level Sodium 135 L Potassium 3.4 L Chloride 95.2 L Carbon Dioxide BUN 18 H Glucose 126 H Total Bilirubin Direct Bilirubin AST ALT NT-Pro-B Natriuret Pep Total Protein Albumin Free T4 2.31 H 04/25/18 04/26/18 04/26/18 06:58 04:49 04:54 WBC RDW 16.6 H [place] % (Auto) 9.7 H Baso % (Auto) [place] # 1.0 H Baso # PT INR Heparin Anti-Xa Level Sodium Potassium Chloride Carbon Dioxide BUN Glucose Total Bilirubin 4.60 H Direct Bilirubin 1.2 H AST 52 H ALT NT-Pro-B Natriuret Pep 5335 H Total Protein 5.8 L Albumin 3.3 L Free T4 04/27/18 04/27/18 04/28/18 04:12 04:12 04:35 WBC RDW [place] % (Auto) Baso % (Auto) [place] # Baso # PT 20.7 H INR 1.66 H Heparin Anti-Xa Level Sodium Potassium Chloride Carbon Dioxide BUN Glucose Total Bilirubin 3.60 H 3.80 H Direct Bilirubin 1.1 H 1.0 H AST 62 H 82 H ALT 77 H 116 H NT-Pro-B Natriuret Pep Total Protein 5.9 L Albumin 3.4 L 3.6 L Free T4 04/28/18 04/29/18 04/29/18 04:35 11:07 20:03 WBC RDW [place] % (Auto) Baso % (Auto) [place] # Baso # PT 15.5 H INR 1.16 H Heparin Anti-Xa Level 1.24 H Sodium 134 L Potassium Chloride 96.0 L Carbon Dioxide BUN Glucose 139 H Total Bilirubin Direct Bilirubin AST ALT NT-Pro-B Natriuret Pep Total Protein Albumin Free T4 04/30/18 04/30/18 05/01/18 06:16 18:19 04:20 WBC 12.9 H RDW 16.8 H [place] % (Auto) Baso % (Auto) [place] # Baso # PT INR Heparin Anti-Xa Level 0.99 H Sodium Potassium Chloride Carbon Dioxide BUN Glucose Total Bilirubin 4.90 H Direct Bilirubin 1.5 H AST 42 H ALT 88 H NT-Pro-B Natriuret Pep Total Protein Albumin 3.6 L Free T4 05/01/18 04:20 WBC RDW [place] % (Auto) Baso % (Auto) [place] # Baso # PT INR Heparin Anti-Xa Level Sodium 130 L Potassium Chloride 91.1 L Carbon Dioxide 21 L BUN Glucose 132 H Total Bilirubin 4.90 H Direct Bilirubin 1.8 H AST 41 H ALT 76 H NT-Pro-B Natriuret Pep Total Protein 6.1 L Albumin 3.4 L Free T4
[2018-05-01] MEDS ORDERED: ATIVAN IV NR (14:00)
--- NOTE | 2018-05-01 14:58 | Progress Note ---
Assessment and Plan Assessment and plan: 57 year old -[place]yp[place] female with past medical history significant for mitral valve prolapse, A. fib, systolic CHF, panic attack, GERD, cholecystitis, hernia, tobacco use disorder, COPD presented to the emergency department for complaints of palpitation. Patient says chest palpitation for the last 1 month. Patient subsequently complaining epigastric burning pain which he attributed to her GERD. Patient is also complaining shortness of breath. Patient is admitted a month ago and was treated for A.fib and CHF. Patient was in A. fib with RVR, started on amiodarone drip but couldn't start Cardizem drip because of low blood pressure. Currently undergoing work up and risk assessment for cholecystectomy. Initially noted elevated LFT likely secondary to CHF and for that reason MRCP being held. A fib with RVR, with marginally low blood pressure - Heart rate is controlled, ON Amiodarone drip. - cardiology re-evaluating CCB - Cardiology consulted and recommend to continue amiodarone drip - Heparin drip started - Eliquis on hold for possible surgery, Acute on chronic Respiratory failure with Hypoxia -Pulmonary following. Cholecystitis/umbilical Hernia/Abdominal pain - PAIN CONTROL - EVALUATE FOR FURTHER HEPATIC CONGESTION - CHECK LACTATE LEVEL - Surgery following Plan for surgery for cholecystectomy - Check CT abdomen and Pelvis Chronic Systolic CHF - Patient doesn't look like and exacerbation - Hold Lasix until blood pressures normalized - Give one dose of lasix GERD - We'll start the patient on Protonix Panic attack/Anixety - Continue Xanax Pericardial effusion - No acute pulmonary compromise Passive Hepatic Congestion - Likely secondary to underlying heart failure COPD without exacerbation/Pulmonary HTN -Pulmonary following DVT prophylaxis - heparin/SCD Discussed with family and patient. History Interval history: Patient SEEN AND examined, Still with abdominal pain. Reports improvement compared to yesterday. shortness of breath persist. Hospitalist Physical - Physical exam Narrative exam: VITAL SIGNS: Reviewed. GENERAL: The patient appeared well nourished and normally developed. Vital signs as documented. HEAD: No signs of head trauma. EYES: Pupils are equal. Extraocular motions intact. EARS: Hearing grossly intact. MOUTH: Oropharynx is normal. NECK: No adenopathy, no JVD. CHEST: Chest with clear breath sounds bilaterally. No wheezes, rales, or rhonchi. CARDIAC: Irregularly irregular. S1 and S2, without murmurs, gallops, or rubs. VASCULAR: Trace Edema. Peripheral pulses normal and equal in all extremities. ABDOMEN: Soft,Tender to palpation. No sign of distention. No rebound or guarding, and no masses palpated. Bowel Sounds normal. MUSCULOSKELETAL: Good range of motion of all major joints. Extremities without clubbing, cyanosis. noted trace edema bilateral lower ext. NEUROLOGIC EXAM: Alert and oriented x 3. No focal sensory or strength deficits. Speech normal. Follows commands. PSYCHIATRIC: Mood normal. SKIN: No rash or lesions. - Constitutional Vitals: Temp Pulse Resp BP Pulse Ox 97.9 F 129 H 20 113/74 95 05/01/18 07:37 05/01/18 11:42 05/01/18 10:00 05/01/18 11:42 05/01/18 11:42 Results - Labs CBC & Chem 7: 05/01/18 04:20 05/01/18 04:20 Labs: Laboratory Last Values WBC 12.9 K/mm3 (4.5-11.0) H 05/01/18 04:20 RBC 3.92 M/mm3 (3.65-5.03) 05/01/18 04:20 Hgb 10.8 gm/dl (10.1-14.3) 05/01/18 04:20 Hct 33.4 % (30.3-42.9) 05/01/18 04:20 MCV 85 fl (79-97) 05/01/18 04:20 MCH 28 pg (28-32) 05/01/18 04:20 MCHC 32 % (30-34) 05/01/18 04:20 RDW 16.8 % (13.2-15.2) H 05/01/18 04:20 Plt Count 211 K/mm3 (140-440) 05/01/18 04:20 Lymph % (Auto) 29.3 % (13.4-35.0) 04/26/18 04:54 [place] % (Auto) 9.7 % (0.0-7.3) H 04/26/18 04:54 Eos % (Auto) 0.3 % (0.0-4.3) 04/26/18 04:54 Baso % (Auto) 0.7 % (0.0-1.8) 04/26/18 04:54 Lymph # 3.0 K/mm3 (1.2-5.4) 04/26/18 04:54 [place] # 1.0 K/mm3 (0.0-0.8) H 04/26/18 04:54 Eos # 0.0 K/mm3 (0.0-0.4) 04/26/18 04:54 Baso # 0.1 K/mm3 (0.0-0.1) 04/26/18 04:54 Seg Neutrophils % 60.0 % (40.0-70.0) 04/26/18 04:54 Seg Neutrophils # 6.1 K/mm3 (1.8-7.7) 04/26/18 04:54 PT 15.5 Sec. (12.2-14.9) H 04/29/18 11:07 INR 1.16 (0.87-1.13) H 04/29/18 11:07 APTT 31.7 Sec. (24.2-36.6) 04/29/18 11:07 Heparin Anti-Xa Level 0.67 U.I./ml (0.3-0.7) 04/30/18 18:19 Sodium 130 mmol/L (137-145) L 05/01/18 04:20 Potassium 4.3 mmol/L (3.6-5.0) 05/01/18 04:20 Chloride 91.1 mmol/L (98-107) L 05/01/18 04:20 Carbon Dioxide 21 mmol/L (22-30) L 05/01/18 04:20 Anion Gap 22 mmol/L 05/01/18 04:20 BUN 17 mg/dL (7-17) 05/01/18 04:20 Creatinine 1.1 mg/dL (0.7-1.2) 05/01/18 04:20 Estimated GFR > 60 ml/min 05/01/18 04:20 BUN/Creatinine Ratio 15 % 05/01/18 04:20 Glucose 132 mg/dL (65-100) H 05/01/18 04:20 Calcium 8.6 mg/dL (8.4-10.2) 05/01/18 04:20 Magnesium 2.10 mg/dL (1.7-2.3) 04/28/18 04:35 Total Bilirubin 4.90 mg/dL (0.1-1.2) H 05/01/18 04:20 Direct Bilirubin 1.8 mg/dL (0-0.2) H 05/01/18 04:20 Indirect Bilirubin 3.1 mg/dL 05/01/18 04:20 AST 41 units/L (5-40) H 05/01/18 04:20 ALT 76 units/L (7-56) H 05/01/18 04:20 Alkaline Phosphatase 83 units/L (35-129) 05/01/18 04:20 Total Creatine Kinase 82 units/L (30-135) 04/25/18 06:58 CK-MB (CK-2) 1.6 ng/mL (0.0-4.0) 04/25/18 06:58 CK-MB (CK-2) Rel Index 1.9 (0-4) 04/25/18 06:58 Troponin T < 0.010 ng/mL (0.00-0.029) 04/25/18 06:58 NT-Pro-B Natriuret Pep 5335 pg/mL (0-900) H 04/25/18 06:58 Total Protein 6.1 g/dL (6.3-8.2) L 05/01/18 04:20 Albumin 3.4 g/dL (3.9-5) L 05/01/18 04:20 Albumin/Globulin Ratio 1.3 % 05/01/18 04:20 Lipase 31 units/L (13-60) 05/01/18 12:29 TSH 3.070 mlU/mL (0.270-4.200) 04/25/18 06:58 Free T4 2.31 ng/dL (0.76-1.46) H 04/25/18 06:58 Nutrition/Malnutrition Assess - Dietary Evaluation Nutrition/Malnutrition Findings: Nutrition Notes Start: 04/30/18 10:40 Freq: Status: Active Protocol: Document 04/30/18 10:40 ER (Rec: 04/30/18 10:53 ER [id number]) Co-Sign 04/30/18 10:40 LP Nutrition Notes Need for Assessment generated from: LOS Initial or Follow up Assessment Current Diagnosis Heart Failure Other Pertinent Diagnosis A. fib., Cholecystitis, GERD, anxiety Current Diet Cardiac Diet Labs/Tests Na 134 Pertinent Medications Heparin Height 5 ft 3 in Weight 59.7 kg Usual Body Weight 61 kg [place] Body Weight (kg) 52.27 BMI 23.3 Intake Prior to Admission Good Weight Status Appropriate Subjective/Other Information Screen for LOS. Pt. eating <50 % of meals and has had a poor appetite x3days. Pt. has abd cramping today and does not have an appetite. Pt. thinks pain is from eating a salad last night. Pt. has nausea and vomiting for the past day. Pt . stated she has been eating moses crackers and drinking water. Pt. food preferences noted in diet order. Pt. would like to have one Ensure Enlive a day until appetite returns. Burn Absent Trauma Absent GI Symptoms Nausea Vomiting Food Allergy No Current % PO Fair (50-74%) Minimum of two criteria No #1 Nutrition Diagnosis Inadequate energy intake Etiology decreased appetite As Evidenced by Signs and Symptoms pt. eating <50% of energy needs x3days, N/V Is patient on ventilator? No Is Patient Ambulatory and/or Out of Bed Yes REE-([facility]-ambulatory/OOB) [ 1509.469 NUTR.MSJOOB] Calculation Used for Recommendations [facility] Additional Notes Protein needs: 48-60g (0.8-1g/ kg) Fluid needs: 1 mL/kcal Nutrition Intervention Change Diet Order: Continue Cardiac; add Ensure Enlive once daily Add Supplement/Snack (indicate name/kcal Ensure Enlive once daily ( /protein ) chocolate) Provides kCal: 350 Provides Protein (gm) 20 Goal #1 Pt. to meet at least 75% of energy and protein needs through PO and ONS intakes. Goal #2 ONS tolerance Anticipated Discharge Needs: Cardiac Diet Follow-Up By: 05/03/18 Additional Comments f/u: PO and ONS Intakes
[2018-05-01] MEDS ORDERED: LASIX IV ONE (16:00)
[2018-05-01] MEDS: CARDIZEM PO SCH ×2 (16:54→21:20)
[2018-05-01] MEDS: PROVENTIL IH PRN (20:58)
[2018-05-02] MEDS: CORDARONE 900 MG in D5W 482 ML IV SCH (00:47)
[2018-05-02] MEDS: ZOFRAN IV PRN ×2 (05:25→19:23)
[2018-05-02] MEDS: XANAX PO PRN ×2 (05:35→13:22)
[2018-05-02] MEDS: CARDIZEM PO SCH ×2 (09:36→21:25)
[2018-05-02] MEDS: PEPCID PO SCH ×2 (09:36→21:25)
[2018-05-02] MEDS: HABITROL TD SCH (09:37)
--- NOTE | 2018-05-02 10:47 | Progress Note ---
Assessment and Plan Imp: 1. Afib w/ RVR, perhaps triggered by cholecystitis 2. Cholecystitis 3. COPD w/o exac. 4. Chronic systolic CHF 5. Pericardial effusion 6. Mitral regurgitation 7. Pulm HTN 2/2 #'s 3-6 8. GERD No new recs for today. Will see as needed over the weekend. Rec: 1. Afib per cardiology 2. Moderate risk pulmonary-duarte for cholecystectomy; suspect majority of her risk is cardiac 3. COPD appears stable currently; monitor; no need for systemic steroids 4. PPI 5. On SubQ heparin while Eliquis is held 6. Stop smoking, counseled 7. Further plans pending clinical course Subjective Date of service: 05/02/18 Principal diagnosis: COPD, Afib w/ RVR Interval history: No new complaints, abd pain better today. No SOB Objective - Exam Narrative Exam: VITAL SIGNS: Reviewed. GENERAL: The patient appeared well nourished and normally developed. Vital signs as documented. HEAD: No signs of head trauma. EYES: Pupils are equal. Extraocular motions intact. EARS: Hearing grossly intact. MOUTH: Oropharynx is normal. NECK: No adenopathy, no JVD. CHEST: Chest with clear breath sounds bilaterally. No wheezes, rales, or rhonchi. CARDIAC: Irregularly irregular. S1 and S2, without murmurs, gallops, or rubs. VASCULAR: Trace Edema. Peripheral pulses normal and equal in all extremities. ABDOMEN: Soft,Tender to palpation. No sign of distention. No rebound or guarding, and no masses palpated. Bowel Sounds normal. MUSCULOSKELETAL: Good range of motion of all major joints. Extremities without clubbing, cyanosis. noted trace edema bilateral lower ext. NEUROLOGIC EXAM: Alert and oriented x 3. No focal sensory or strength deficits. Speech normal. Follows commands. PSYCHIATRIC: Mood normal. SKIN: No rash or lesions. Vital Signs - 12hr 05/01/18 05/02/18 05/02/18 23:24 04:21 08:34 Temperature 98.6 F 97.3 F L 98.2 F Pulse Rate 109 H 87 83 Respiratory 13 16 18 Rate Blood Pressure 101/69 95/67 104/77 O2 Sat by Pulse 97 99 96 Oximetry 05/02/18 10:00 Temperature Pulse Rate Respiratory Rate Blood Pressure O2 Sat by Pulse 96 Oximetry Constitutional: no acute distress, alert Eyes: non-icteric ENT: oropharynx moist Neck: supple Ascultation: Bilateral: clear, diminished breath sounds (bases) Cardiovascular: irregular rhythm (tachy, no r/g; II/ systolic murmur throughout) Gastrointestinal: normoactive bowel sounds, non-distended Integumentary: normal Extremities: no cyanosis, pink and warm, edema (mild or trace, pretibial) Neurologic: normal mental status, non-focal exam, pupils equal and round, CN II- XII normal Psychiatric: mood appropriate, affect normal CBC and BMP: 05/01/18 04:20 05/01/18 04:20 ABG, PT/INR, D-dimer: PT/INR, D-dimer PT 15.5 Sec. (12.2-14.9) H 04/29/18 11:07 INR 1.16 (0.87-1.13) H 04/29/18 11:07 Abnormal lab findings: Abnormal Labs 04/25/18 04/25/18 04/25/18 06:58 06:58 06:58 WBC RDW 16.6 H [place] % (Auto) 9.9 H Baso % (Auto) 2.1 H [place] # Baso # 0.2 H PT INR Heparin Anti-Xa Level Sodium 135 L Potassium 3.4 L Chloride 95.2 L Carbon Dioxide BUN 18 H Glucose 126 H Total Bilirubin Direct Bilirubin AST ALT NT-Pro-B Natriuret Pep Total Protein Albumin Free T4 2.31 H 04/25/18 04/26/18 04/26/18 06:58 04:49 04:54 WBC RDW 16.6 H [place] % (Auto) 9.7 H Baso % (Auto) [place] # 1.0 H Baso # PT INR Heparin Anti-Xa Level Sodium Potassium Chloride Carbon Dioxide BUN Glucose Total Bilirubin 4.60 H Direct Bilirubin 1.2 H AST 52 H ALT NT-Pro-B Natriuret Pep 5335 H Total Protein 5.8 L Albumin 3.3 L Free T4 04/27/18 04/27/18 04/28/18 04:12 04:12 04:35 WBC RDW [place] % (Auto) Baso % (Auto) [place] # Baso # PT 20.7 H INR 1.66 H Heparin Anti-Xa Level Sodium Potassium Chloride Carbon Dioxide BUN Glucose Total Bilirubin 3.60 H 3.80 H Direct Bilirubin 1.1 H 1.0 H AST 62 H 82 H ALT 77 H 116 H NT-Pro-B Natriuret Pep Total Protein 5.9 L Albumin 3.4 L 3.6 L Free T4 04/28/18 04/29/18 04/29/18 04:35 11:07 20:03 WBC RDW [place] % (Auto) Baso % (Auto) [place] # Baso # PT 15.5 H INR 1.16 H Heparin Anti-Xa Level 1.24 H Sodium 134 L Potassium Chloride 96.0 L Carbon Dioxide BUN Glucose 139 H Total Bilirubin Direct Bilirubin AST ALT NT-Pro-B Natriuret Pep Total Protein Albumin Free T4 04/30/18 04/30/18 05/01/18 06:16 18:19 04:20 WBC 12.9 H RDW 16.8 H [place] % (Auto) Baso % (Auto) [place] # Baso # PT INR Heparin Anti-Xa Level 0.99 H Sodium Potassium Chloride Carbon Dioxide BUN Glucose Total Bilirubin 4.90 H Direct Bilirubin 1.5 H AST 42 H ALT 88 H NT-Pro-B Natriuret Pep Total Protein Albumin 3.6 L Free T4 05/01/18 05/01/18 04:20 20:09 WBC RDW [place] % (Auto) Baso % (Auto) [place] # Baso # PT INR Heparin Anti-Xa Level 0.80 H Sodium 130 L Potassium Chloride 91.1 L Carbon Dioxide 21 L BUN Glucose 132 H Total Bilirubin 4.90 H Direct Bilirubin 1.8 H AST 41 H ALT 76 H NT-Pro-B Natriuret Pep Total Protein 6.1 L Albumin 3.4 L Free T4
--- NOTE | 2018-05-02 12:06 | Progress Note ---
Assessment and Plan 57yo AAF: 1. Afib w/ vvr * hr control improved with addition of cardizem yesterday * bp still borderline * cont iv amio * Cont heparin gtt and plan to resume home Eliquis when okay per surgery. 2. Cholecystitis 3. COPD w/o exac. 4. Chronic systolic CHF/MR * while she appears compensated, peripheral edema is noted - try one dose of lasix today 5. Anxiety 6. GERD - Patient Problems (1) Atrial fibrillation with rapid ventricular response Current Visit: Yes Status: Acute (2) Cholecystitis Current Visit: Yes Status: Acute (3) Anxiety Current Visit: Yes Status: Chronic (4) GERD (gastroesophageal reflux disease) Current Visit: Yes Status: Chronic (5) Paroxysmal atrial fibrillation with RVR Current Visit: Yes Status: Chronic (6) Umbilical hernia without mention of obstruction or gangrene Current Visit: Yes Status: Chronic (7) Acute and chronic respiratory failure ([id number]) Current Visit: No Status: Acute Subjective Date of service: 05/02/18 Principal diagnosis: COPD, Afib w/ RVR Interval history: feels better Objective Vital Signs Temp Pulse Pulse Resp Resp BP Pulse Ox 05/02/18 10:00 96 05/02/18 08:34 98.2 F 83 18 104/77 96 05/02/18 04:21 97.3 F L 87 16 95/67 99 05/01/18 23:24 98.6 F 109 H 13 101/69 97 05/01/18 22:00 101 H 05/01/18 21:20 90 153/89 05/01/18 21:02 94 H 16 05/01/18 21:01 96 05/01/18 20:52 90 18 05/01/18 19:29 97.8 F 100 H 20 153/89 97 05/01/18 16:54 122 H 97/67 05/01/18 16:13 122 H 97/67 98 - Physical Examination General: No Apparent Distress HEENT: Positive: PERRL, Normocephaly, Mucus Membranes Moist Neck: Positive: neck supple, trachea midline Neuro: Positive: Grossly Intact Abdomen: Positive: Soft Skin: Negative: Rash, Wound Musculoskeletal: No Pain Extremities: Absent: edema
--- NOTE | 2018-05-02 12:10 | Progress Note ---
Assessment and Plan Assessment and plan: 57 year old -[place] female with past medical history significant for mitral valve prolapse, A. fib, systolic CHF, panic attack, GERD, cholecystitis, hernia, tobacco use disorder, COPD presented to the emergency department for complaints of palpitation. Patient says chest palpitation for the last 1 month. Patient subsequently complaining epigastric burning pain which he attributed to her GERD. Patient is also complaining shortness of breath. Patient is admitted a month ago and was treated for A.fib and CHF. Patient was in A. fib with RVR, started on amiodarone drip but couldn't start Cardizem drip because of low blood pressure. Currently undergoing work up and risk assessment for cholecystectomy. Initially noted elevated LFT likely secondary to CHF and for that reason MRCP being held. A fib with RVR, with marginally low blood pressure - Heart rate is controlled, ON Amiodarone drip. - cardiology re-evaluating CCB - Cardiology consulted and recommend to continue amiodarone drip - Heparin drip started - Eliquis on hold for possible surgery, Acute on chronic Respiratory failure with Hypoxia -Pulmonary following. Cholecystitis/umbilical Hernia/Abdominal pain - PAIN CONTROL - EVALUATE FOR FURTHER HEPATIC CONGESTION - CHECK LACTATE LEVEL - Surgery following Plan for surgery for cholecystectomy - Check CT abdomen and Pelvis-PENDING Chronic Systolic CHF - Patient doesn't look like and exacerbation - Hold Lasix until blood pressures normalized - Give one dose of lasix GERD - We'll start the patient on Protonix Panic attack/Anixety - Continue Xanax Pericardial effusion - No acute pulmonary compromise Passive Hepatic Congestion - Likely secondary to underlying heart failure COPD without exacerbation/Pulmonary HTN -Pulmonary following DVT prophylaxis - heparin/SCD Discussed with family and patient. History Interval history: Patient SEEN AND examined, Still with abdominal pain. Reports improvement compared to yesterday. Hospitalist Physical - Physical exam Narrative exam: VITAL SIGNS: Reviewed. GENERAL: The patient appeared well nourished and normally developed. Vital signs as documented. HEAD: No signs of head trauma. EYES: Pupils are equal. Extraocular motions intact. EARS: Hearing grossly intact. MOUTH: Oropharynx is normal. NECK: No adenopathy, no JVD. CHEST: Chest with clear breath sounds bilaterally. No wheezes, rales, or rhonchi. CARDIAC: Irregularly irregular. S1 and S2, without murmurs, gallops, or rubs. VASCULAR: Trace Edema. Peripheral pulses normal and equal in all extremities. ABDOMEN: Soft,Tender to palpation. No sign of distention. No rebound or guarding, and no masses palpated. Bowel Sounds normal. MUSCULOSKELETAL: Good range of motion of all major joints. Extremities without clubbing, cyanosis. noted trace edema bilateral lower ext. NEUROLOGIC EXAM: Alert and oriented x 3. No focal sensory or strength deficits. Speech normal. Follows commands. PSYCHIATRIC: Mood normal. SKIN: No rash or lesions. - Constitutional Vitals: Temp Pulse Resp BP Pulse Ox 98.2 F 83 18 104/77 96 05/02/18 08:34 05/02/18 08:34 05/02/18 08:34 05/02/18 08:34 05/02/18 10:00 Results - Labs CBC & Chem 7: 05/03/18 03:00 05/03/18 03:00 Labs: Laboratory Last Values WBC 12.9 K/mm3 (4.5-11.0) H 05/01/18 04:20 RBC 3.92 M/mm3 (3.65-5.03) 05/01/18 04:20 Hgb 10.8 gm/dl (10.1-14.3) 05/01/18 04:20 Hct 33.4 % (30.3-42.9) 05/01/18 04:20 MCV 85 fl (79-97) 05/01/18 04:20 MCH 28 pg (28-32) 05/01/18 04:20 MCHC 32 % (30-34) 05/01/18 04:20 RDW 16.8 % (13.2-15.2) H 05/01/18 04:20 Plt Count 211 K/mm3 (140-440) 05/01/18 04:20 Lymph % (Auto) 29.3 % (13.4-35.0) 04/26/18 04:54 [place] % (Auto) 9.7 % (0.0-7.3) H 04/26/18 04:54 Eos % (Auto) 0.3 % (0.0-4.3) 04/26/18 04:54 Baso % (Auto) 0.7 % (0.0-1.8) 04/26/18 04:54 Lymph # 3.0 K/mm3 (1.2-5.4) 04/26/18 04:54 [place] # 1.0 K/mm3 (0.0-0.8) H 04/26/18 04:54 Eos # 0.0 K/mm3 (0.0-0.4) 04/26/18 04:54 Baso # 0.1 K/mm3 (0.0-0.1) 04/26/18 04:54 Seg Neutrophils % 60.0 % (40.0-70.0) 04/26/18 04:54 Seg Neutrophils # 6.1 K/mm3 (1.8-7.7) 04/26/18 04:54 PT 15.5 Sec. (12.2-14.9) H 04/29/18 11:07 INR 1.16 (0.87-1.13) H 04/29/18 11:07 APTT 31.7 Sec. (24.2-36.6) 04/29/18 11:07 Heparin Anti-Xa Level 0.48 U.I./ml (0.3-0.7) 05/02/18 11:13 Sodium 130 mmol/L (137-145) L 05/01/18 04:20 Potassium 4.3 mmol/L (3.6-5.0) 05/01/18 04:20 Chloride 91.1 mmol/L (98-107) L 05/01/18 04:20 Carbon Dioxide 21 mmol/L (22-30) L 05/01/18 04:20 Anion Gap 22 mmol/L 05/01/18 04:20 BUN 17 mg/dL (7-17) 05/01/18 04:20 Creatinine 1.1 mg/dL (0.7-1.2) 05/01/18 04:20 Estimated GFR > 60 ml/min 05/01/18 04:20 BUN/Creatinine Ratio 15 % 05/01/18 04:20 Glucose 132 mg/dL (65-100) H 05/01/18 04:20 Calcium 8.6 mg/dL (8.4-10.2) 05/01/18 04:20 Magnesium 2.10 mg/dL (1.7-2.3) 04/28/18 04:35 Total Bilirubin 4.90 mg/dL (0.1-1.2) H 05/01/18 04:20 Direct Bilirubin 1.8 mg/dL (0-0.2) H 05/01/18 04:20 Indirect Bilirubin 3.1 mg/dL 05/01/18 04:20 AST 41 units/L (5-40) H 05/01/18 04:20 ALT 76 units/L (7-56) H 05/01/18 04:20 Alkaline Phosphatase 83 units/L (35-129) 05/01/18 04:20 Total Creatine Kinase 82 units/L (30-135) 04/25/18 06:58 CK-MB (CK-2) 1.6 ng/mL (0.0-4.0) 04/25/18 06:58 CK-MB (CK-2) Rel Index 1.9 (0-4) 04/25/18 06:58 Troponin T < 0.010 ng/mL (0.00-0.029) 04/25/18 06:58 NT-Pro-B Natriuret Pep 5335 pg/mL (0-900) H 04/25/18 06:58 Total Protein 6.1 g/dL (6.3-8.2) L 05/01/18 04:20 Albumin 3.4 g/dL (3.9-5) L 05/01/18 04:20 Albumin/Globulin Ratio 1.3 % 05/01/18 04:20 Lipase 31 units/L (13-60) 05/01/18 12:29 TSH 3.070 mlU/mL (0.270-4.200) 04/25/18 06:58 Free T4 2.31 ng/dL (0.76-1.46) H 04/25/18 06:58 Nutrition/Malnutrition Assess - Dietary Evaluation Nutrition/Malnutrition Findings: Nutrition Notes Start: 04/30/18 10:40 Freq: Status: Active Protocol: Document 04/30/18 10:40 ER (Rec: 04/30/18 10:53 ER [id number]) Co-Sign 04/30/18 10:40 LP Nutrition Notes Need for Assessment generated from: LOS Initial or Follow up Assessment Current Diagnosis Heart Failure Other Pertinent Diagnosis A. fib., Cholecystitis, GERD, anxiety Current Diet Cardiac Diet Labs/Tests Na 134 Pertinent Medications Heparin Height 5 ft 3 in Weight 59.7 kg Usual Body Weight 61 kg [place] Body Weight (kg) 52.27 BMI 23.3 Intake Prior to Admission Good Weight Status Appropriate Subjective/Other Information Screen for LOS. Pt. eating <50 % of meals and has had a poor appetite x3days. Pt. has abd cramping today and does not have an appetite. Pt. thinks pain is from eating a salad last night. Pt. has nausea and vomiting for the past day. Pt . stated she has been eating moses crackers and drinking water. Pt. food preferences noted in diet order. Pt. would like to have one Ensure Enlive a day until appetite returns. Burn Absent Trauma Absent GI Symptoms Nausea Vomiting Food Allergy No Current % PO Fair (50-74%) Minimum of two criteria No #1 Nutrition Diagnosis Inadequate energy intake Etiology decreased appetite As Evidenced by Signs and Symptoms pt. eating <50% of energy needs x3days, N/V Is patient on ventilator? No Is Patient Ambulatory and/or Out of Bed Yes REE-([facility]-ambulatory/OOB) [ 1509.469 NUTR.MSJOOB] Calculation Used for Recommendations [facility] Additional Notes Protein needs: 48-60g (0.8-1g/ kg) Fluid needs: 1 mL/kcal Nutrition Intervention Change Diet Order: Continue Cardiac; add Ensure Enlive once daily Add Supplement/Snack (indicate name/kcal Ensure Enlive once daily ( /protein ) chocolate) Provides kCal: 350 Provides Protein (gm) 20 Goal #1 Pt. to meet at least 75% of energy and protein needs through PO and ONS intakes. Goal #2 ONS tolerance Anticipated Discharge Needs: Cardiac Diet Follow-Up By: 05/03/18 Additional Comments f/u: PO and ONS Intakes
--- NOTE | 2018-05-02 13:09 | Progress Note ---
Assessment and Plan (1) Cholecystitis Current Visit: Yes Status: Acute Plan to address problem: Pt stable. Chronic cholecystitis. Elevated LFTs mostly indirect and likely related to liver congestion from CHF. Will continue to trend - pending for today. Cholecystectomy scheduled for Friday 05/05. Continue clear liquids until then, IVF, PRN Pain control. Ct scan A/P ordered per 1' service. Will follow up. (2) Umbilical hernia without mention of obstruction or gangrene Current Visit: Yes Status: Chronic Plan to address problem: Pt stable. Patient is symptomatic from this moderate sized hernia. This is something that will be repaired at the time of her cholecystectomy per Dr. Schneider Thank you, please call with questions. Subjective Date of service: 05/02/18 Narrative: Pt seen and examined. No acute complaints. Tolerating liquids without n/v. States she feels ok today. Abdominal pain is controlled. Objective Vital Signs - 12hr 05/02/18 05/02/18 05/02/18 04:21 08:34 10:00 Temperature 97.3 F L 98.2 F Pulse Rate 87 83 Respiratory 16 18 Rate Blood Pressure 95/67 104/77 O2 Sat by Pulse 99 96 96 Oximetry 05/02/18 12:11 Temperature 97.4 F L Pulse Rate 86 Respiratory 18 Rate Blood Pressure 101/68 O2 Sat by Pulse 97 Oximetry - General physical appearance Narrative Exam: Gen: AAOx3. NAD ENT: no scleral icterus or conjunctival pallor CV: s1, S2+ Resp: even and unlabored Abd: soft, mildly distended, mild RUQ and epigastric TTP. no r/r/g Ext: no c/c/e - Labs 05/01/18 04:20 05/01/18 04:20
[2018-05-02] MEDS: COLACE PO SCH ×2 (13:17→21:25)
--- NOTE | 2018-05-02 15:14 | Cat Scan Report ---
FINAL REPORT EXAM: CT ABDOMEN PELVIS W CON HISTORY: abdominal pain TECHNIQUE: CT of the abdomen and pelvis was performed after the administration of intravenous contra st. Reconstructions were included in the coronal and sagittal planes. PRIORS: CTA of the chest from 03/16/2018. FINDINGS: Lower thorax: There is a small to moderate right pleural effusion. Adjacent atelectasis is seen. Cons olidative opacities are seen in the right middle lobe, right lower lobe and left lower lobe. Persiste nt large pericardial effusion is seen. Multi chamber cardiac enlargement is again noted. Liver: The liver is normal in attenuation. No intrahepatic biliary duct dilation. No focal hepatic le sions. Gallbladder/ biliary system: Cholelithiasis is noted. No definite gallbladder wall thickening or wolf cholecystic fluid. The common bile duct appears nondilated. Spleen: No splenic lesions are seen. Pancreas: Inflammatory stranding is seen surrounding the pancreatic head. No pancreatic duct dilation . No definite focal pancreatic lesions are seen. Kidneys: Left-sided pelvic kidney is noted. No renal masses, cysts or hydronephrosis. Adrenal glands: No adrenal masses. Vasculature: The abdominal aorta is nondilated. Atherosclerotic calculi are seen in the abdominal aor ta. Lymph nodes: There is a focal soft tissue attenuation lesion in the left inguinal region which may re present an enlarged lymph node or soft tissue mass measuring 3.2 x 2.5 centimeters. Bowel, mesentery, peritoneum: No bowel obstruction. There is a moderate volume of scattered ascites. No free air. The appendix is normal. No colonic diverticulosis. There is mild wall thickening and ian rounding inflammation of the duodenum. Urinary bladder: The urinary bladder is decompressed and not well evaluated. Pelvis: A single right-sided uterine horn is seen, possibly representing unicornuate uterus. Abdominal wall: There is a small umbilical hernia containing the anterior wall of the transverse colo n without evidence of incarceration. Bones: Mild degenerative changes are seen in the spine. IMPRESSION: 1. Inflammatory changes surrounding the pancreatic head may reflect acute pancreatitis. Note that the re is also inflammation and wall thickening of the duodenum which can be seen in duodenitis versus in flammation of the duodenum related to pancreatitis. 2. Persistent large pericardial effusion and multi chamber cardiac enlargement. 3. Multifocal right middle lobe and bilateral lower lobe pulmonary opacities may represent multifocal pneumonia versus atelectasis. Small to moderate right pleural effusion. 4. Moderate volume of ascites predominantly in the pelvis. 5. Cholelithiasis. 6. Left-sided pelvic kidney. 7. 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 8. Nonspecific soft tissue attenuation lesion in the left groin which may represent an enlarged lymph node versus soft tissue mass. 9. Bowel containing umbilical hernia without evidence of incarceration.
[2018-05-02] MEDS: PERCOCET 5/325 PO PRN (19:23)
[2018-05-02 21:07] LABS: Alanine Aminotransferase 154 units/L (7-56); Albumin 3.8 g/dL (3.9-5); BUN/Creatinine Ratio 16; Bilirubin,Direct 1.7 mg/dL (0-0.2); Blood Urea Nitrogen 18 mg/dL (7-17); Calcium 8.8 mg/dL (8.4-10.2); Hemolysis Index 7
[2018-05-03] MEDS: HEPARIN/ 0.45% NACL-25,000 UNIT/500 ML 25,000 UNIT/500 ML BAG IV SCH (01:28)
[2018-05-03] MEDS: CORDARONE 900 MG in D5W 482 ML IV SCH (02:29)
[2018-05-03 03:39] LABS: Hematocrit 34.4 % (30.3-42.9)
[2018-05-03 03:56] LABS: Alanine Aminotransferase 156 units/L (7-56); Albumin 3.3 g/dL (3.9-5); BUN/Creatinine Ratio 17; Blood Urea Nitrogen 17 mg/dL (7-17); Calcium 8.4 mg/dL (8.4-10.2); Hemolysis Index 2
[2018-05-03] MEDS: ZOFRAN IV PRN (05:29)
[2018-05-03] MEDS: PERCOCET 5/325 PO PRN (05:29)
[2018-05-03] MEDS: XANAX PO PRN ×2 (05:29→15:00)
[2018-05-03] MEDS ORDERED: D5/0.45NS 1,000 ML IV SCH (08:00)
--- NOTE | 2018-05-03 08:53 | Progress Note ---
Assessment and Plan - Patient Problems (1) Cholecystitis Current Visit: Yes Status: Acute Plan to address problem: Pt. stable. I am very concerned about her current cardiopulmonary status. Her electrolytes are significantly off today. She is more edematous compared to admission. Also, her CT scan shows more generalized fluid in the tissues compar ed to March. I discussed the case with anesthesiology. Based on her most recent echocardiogram and her current status, they are reluctant to do general anesthesia unless we have an emergency. In my opinion, the gallbladder is not an emergency. The patient does believe that removal of the gallbladder will relieve all of her pain. I explained to her again that I think part of pain is related to liver congestion and abdominal swelling. I do not feel as though removal of the gallbladder will relieve all of her pain. I discussed my concerns with Dr. Ames as well. He will have nephrology see the patient as well as discuss the case with cardiology and pulmonary. I have ordered a f/u Echo as well. I did discuss with the patient the option of placing a gallbladder drain. It might help a little bit with the pain. It might buy us some time to improve her overall condition to better prepare her for surgery. As we do not have a acute cholecytitis or biliary obstruction picture, the potential benefit of the drain is limited. time=15min (2) Umbilical hernia without mention of obstruction or gangrene Current Visit: Yes Status: Chronic Plan to address problem: Pt stable. Patient is symptomatic from this moderate sized hernia. There are no signs of any compromise of the umbilical skin at this time. This is something that we will repair at the time of her cholecystectomy. Subjective Date of service: 05/03/18 Patient Reports: Positive: no new complaints, feels better, pain is less. Negative: nausea, vomiting Objective Vital Signs - 12hr 05/02/18 05/03/18 05/03/18 22:00 00:14 04:24 Temperature 97.0 F L 98.0 F Pulse Rate 84 82 84 Respiratory 18 18 Rate Blood Pressure 94/56 94/67 O2 Sat by Pulse 97 98 Oximetry - General physical appearance no distress, no pain, other (appears weak and tired) - Respiratory normal expansion, normal respiratory effort - Abdomen soft, not tender, bowel sounds hypoactive, distended (mild), not masses, not guarding, not rigid, not surgical scars Hernia: reducible, umbilical - Integumentary no rash, no growths, no abnormal pigmentation - Psychiatric oriented to time, oriented to person, oriented to place, speech is normal, memory intact - Labs 05/03/18 03:00 05/03/18 03:00 Diabetes panel 05/02/18 05/03/18 Range/Units 20:17 03:00 Sodium 128 L 125 L (137-145) mmol/L Potassium 4.6 3.9 (3.6-5.0) mmol/L Chloride 89.9 L 90.4 L (98-107) mmol/L Carbon Dioxide 21 L 23 (22-30) mmol/L BUN 18 H 17 (7-17) mg/dL Creatinine 1.1 1.0 (0.7-1.2) mg/dL Glucose 106 H 133 H (65-100) mg/dL Calcium 8.8 8.4 (8.4-10.2) mg/dL AST 114 H 114 H (5-40) units/L ALT 154 H 156 H (7-56) units/L Alkaline Phosphatase 112 94 (35-129) units/L Total Protein 6.5 5.9 L (6.3-8.2) g/dL Albumin 3.8 L 3.3 L (3.9-5) g/dL Calcium panel 05/02/18 05/03/18 Range/Units 20:17 03:00 Calcium 8.8 8.4 (8.4-10.2) mg/dL Albumin 3.8 L 3.3 L (3.9-5) g/dL Pituitary panel 05/02/18 05/03/18 Range/Units 20:17 03:00 Sodium 128 L 125 L (137-145) mmol/L Potassium 4.6 3.9 (3.6-5.0) mmol/L Chloride 89.9 L 90.4 L (98-107) mmol/L Carbon Dioxide 21 L 23 (22-30) mmol/L BUN 18 H 17 (7-17) mg/dL Creatinine 1.1 1.0 (0.7-1.2) mg/dL Glucose 106 H 133 H (65-100) mg/dL Calcium 8.8 8.4 (8.4-10.2) mg/dL Adrenal panel 05/02/18 05/03/18 Range/Units 20:17 03:00 Sodium 128 L 125 L (137-145) mmol/L Potassium 4.6 3.9 (3.6-5.0) mmol/L Chloride 89.9 L 90.4 L (98-107) mmol/L Carbon Dioxide 21 L 23 (22-30) mmol/L BUN 18 H 17 (7-17) mg/dL Creatinine 1.1 1.0 (0.7-1.2) mg/dL Glucose 106 H 133 H (65-100) mg/dL Calcium 8.8 8.4 (8.4-10.2) mg/dL Total Bilirubin 4.90 H 4.50 H (0.1-1.2) mg/dL AST 114 H 114 H (5-40) units/L ALT 154 H 156 H (7-56) units/L Alkaline Phosphatase 112 94 (35-129) units/L Total Protein 6.5 5.9 L (6.3-8.2) g/dL Albumin 3.8 L 3.3 L (3.9-5) g/dL - Imaging CT scan - abdomen: report reviewed, image reviewed CT Scan - head: report reviewed, image reviewed
[2018-05-03] MEDS ORDERED: D5NS 1,000 ML IV SCH (10:00)
[2018-05-03] MEDS: HABITROL TD SCH (10:00)
--- NOTE | 2018-05-03 10:00 | Consultation ---
History of Present Illness - History of Present Illness Thank you for the consultation ! Patient was evaluated today My assessment and plan are as follows; Hyponatremia: Progressive decline in sodium for last 2 days from 130 to 125 with normal renal function, abnormal liver enzyme, Etiology of hyponatremia appears to be unclear at this time/but fairly complex Will discontinue D5 half normal started the patient on D5 normal for now and follow Will order lab testing as well as follow-up on the sodium level, needs follow up on hyponatremia with volume overload Patient has left-sided pelvic kidney Multiple underlying comorbidities: Mitral valve prolapse, chronic atrial fibrillation, systolic heart failure, panic attack, GERD, cholecystitis, tobacco use disorder, COPD admitted with atrial fibrillation with rapid ventricular resp onse acute on chronic respiratory failure cholecystitis and chronic systolic heart failure Patient was adequately counseled and educated regarding multiple renal related issues. Renal prognosis remains guarded at this time All renal related questions were answered and simple [place]ian pertinent lab studies as well as imaging results were also discussed with patient We will continue to follow and make recommendations from renal standpoint. Thank you for the consultation Author: Jonathan Cruz M.D. [facility], [address] [place] [address] Tel; [phone] Source of information: From patient history of present illness Patient is a 57-year-old female who has been admitted here since April 25, 2018, patient was brought into the hospital with chest pain and palpitation substernal in nature and upon arrival had a creatinine of 1.0 with a potassium of 3.4 and sodium of 135, i.e. atrial fibrillation with rapid ventricular response Patient has been diagnosed with chronic cholecystitis she is currently being followed by surgery and has also been noted to have umbilical hernia currently somewhat symptomatic she has also been noted to be somewhat more edematous Sodium was noted to be 125 prompting this consultation Ejection fraction is in the range of 30-35% with dilated left atrium and pericardial effusion, does have history of chronic tobacco abuse Past medical history is significant for Atrial fibrillation Systolic heart failure Panic attack Gastroesophageal reflux disorder Cholecystitis Mitral valve prolapse Current allergies: Morphine Home medication profile medication: Reviewed Social history cigarette use Family history noncontributory for related to Home medication profile medication reviewed Physical examination Vitals: Reviewed General: No acute distress HEENT: Oral mucosa moist no pallor or icterus Neck: Supple without any JVD thyromegaly or nodular mass Chest: Clear to auscultation Heart: Regular rate and rhythm S1-S2 heard no S3-S4 Abdomen: Soft nontender, bowel sounds present no renal bruit no suprapubic masses no CVA tenderness noted Extremity: bilateral 1+ edema dry skin no peripheral cyanosis Endocrine: Thyroid not enlarged Psychiatric: No agitation and aggression noted Musculoskeletal: No joint effusion noted Labs and x-rays: Reviewed from this admission Past History Past Medical History: atrial fib, GERD, heart failure, other (MVP, panic attacks, anxiety) Past Surgical History: No surgical history Social history: smoking (decreased to 3 cigarettes a day), full code. denies: alcohol abuse, prescription drug abuse, IV drug use Family history: no significant family history Medications and Allergies Allergies Allergy/AdvReac Type Severity Reaction Status Date / Time morphine Allergy Rash Verified 02/27/18 12:48 Home Medications Medication Instructions Recorded Confirmed Last Taken Type ALPRAZolam [Xanax TAB] 0.25 mg PO TID PRN 04/25/18 04/25/18 Unknown History Apixaban [Eliquis] 5 mg PO Q12HR 04/25/18 04/25/18 Unknown History Furosemide [Lasix TAB] 40 mg PO QDAY 04/25/18 04/25/18 Unknown History Metoprolol [Lopressor] 25 mg PO BID 04/25/18 04/25/18 Unknown History Potassium Chloride [K-Dur] 20 meq PO QDAY 04/25/18 04/25/18 Unknown History Active Meds: Active Medications Albuterol (Proventil) 1.25 mg IH Q6HRT PRN PRN Reason: Shortness Of Breath Last Admin: 05/01/18 20:58 Dose: 1.25 mg Documented by: Alprazolam (Xanax) 0.25 mg PO TID PRN PRN Reason: Anxiety Last Admin: 05/03/18 05:29 Dose: 0.25 mg Documented by: Diltiazem HCl (Cardizem) 30 mg PO BID [facility] Last Admin: 05/02/18 21:25 Dose: 30 mg Documented by: Docusate Sodium (Colace) 100 mg PO BID [facility] Last Admin: 05/02/18 21:25 Dose: 100 mg Documented by: Famotidine (Pepcid) 20 mg PO BID [facility] Last Admin: 05/02/18 21:25 Dose: 20 mg Documented by: Hydromorphone HCl (Dilaudid) 0.5 mg IV Q3H PRN PRN Reason: Pain , Severe (7-10) Last Admin: 04/30/18 14:44 Dose: 0.5 mg Documented by: Amiodarone HCl 900 mg/ (Dextrose) 500 mls @ 33.33 mls/hr IV DIRECT NEL; Protocol Last Admin: 05/03/18 02:29 Dose: 0.5 mg/min, 16.67 mls/hr Documented by: Heparin Sodium/Sodium Chloride (Heparin/ 0.45% Nacl-25,000 Unit/500 Ml) 25,000 unit in 500 mls @ 16 mls/hr IV TITR NEL; Protocol Last Titration: 05/03/18 06:56 Dose: 650 units/hr, 13 mls/hr Documented by: Dextrose/Sodium Chloride (D5ns) 1,000 mls @ 75 mls/hr IV DIRECT NEL Nicotine (Habitrol) 14 mg TD QDAY NEL Last Admin: 05/02/18 09:37 Dose: 14 mg Documented by: Ondansetron HCl (Zofran) 4 mg IV Q4H PRN PRN Reason: Nausea Last Admin: 05/03/18 05:29 Dose: 4 mg Documented by: Oxycodone/Acetaminophen (Percocet 5/325) 1 tab PO Q4H PRN PRN Reason: Pain, Moderate (4-6) Last Admin: 05/03/18 05:29 Dose: 1 tab Documented by: Exam - Vital Signs Vital signs: Vital Signs Temp Pulse Resp BP Pulse Ox 97.9 F 154 H 18 97/72 100 04/25/18 05:57 04/25/18 05:57 04/25/18 05:57 04/25/18 05:57 04/25/18 05:57 Results - Lab Results 05/03/18 03:00 05/03/18 03:00 Most recent lab results Calcium 8.4 mg/dL (8.4-10.2) 05/03/18 03:00 Magnesium 2.10 mg/dL (1.7-2.3) 04/28/18 04:35
[2018-05-03] MEDS: PEPCID PO SCH (10:25)
[2018-05-03] MEDS: CARDIZEM PO SCH (10:25)
[2018-05-03] MEDS: COLACE PO SCH (10:28)
--- NOTE | 2018-05-03 11:01 | Progress Note ---
Assessment and Plan Pt currently in SR. She appears to be clinically worsening, c/o nausea, vomiting and SOB this morning. Noted to have BLE edema. Will d/c amio gtt in setting of elevated LFTs. Cont cardizem. Initiate scheduled IV lasix BID, cont as BPs permit. Worsening hyponatremia also noted, nephrology following. Echo reviewed - EF 30-35%, restrictive diastolic filling, LA severely dilated, marked prolapse of the anterior leaflet of the mitral valve, severe MR, severe TR, large pericardial effusion which may be potentially hemodynamically significant, hepatic vein dilated. D/c heparin gtt in setting of large pericardial effusion. Transfer to tertiary care facility for advanced management of acute heart failure in the setting of severe MR and large pericardial effusion has been arranged. Dr. Strange ([facility]) has agreed to accept pt. D/w Dr. Ames. The patient has been seen in conjunction with Dr. Smith who agrees with the assess ment and plan of care. - Patient Problems (1) Acute HFrEF (heart failure with reduced ejection fraction) Current Visit: Yes Status: Acute (2) Cardiomyopathy Current Visit: Yes Status: Chronic (3) Severe mitral regurgitation Current Visit: Yes Status: Chronic (4) Mitral valve prolapse Current Visit: Yes Status: Chronic (5) Pericardial effusion Current Visit: Yes Status: Acute (6) Paroxysmal atrial fibrillation with RVR Current Visit: Yes Status: Chronic (7) Cholecystitis Current Visit: Yes Status: Acute (8) GERD (gastroesophageal reflux disease) Current Visit: Yes Status: Chronic (9) Umbilical hernia without mention of obstruction or gangrene Current Visit: Yes Status: Chronic (10) COPD (chronic obstructive pulmonary disease) Current Visit: Yes Status: Chronic (11) Anxiety Current Visit: Yes Status: Chronic (12) Hyponatremia Current Visit: Yes Status: Acute Subjective Date of service: 05/03/18 Principal diagnosis: COPD, Afib w/ RVR Interval history: pt resting in bed, c/o nausea and vomiting and SOB. in SR on telemetry. amio gtt infusing. Objective Last Vital Signs Temp 97.3 F L 05/03/18 08:13 Pulse 102 H 05/03/18 08:13 Resp 18 05/03/18 08:13 BP 113/83 05/03/18 08:13 Pulse Ox 97 05/03/18 10:00 - Physical Examination General: No Apparent Distress HEENT: Positive: PERRL, Normocephaly, Mucus Membranes Moist Neck: Positive: neck supple, trachea midline Cardiac: Positive: Reg Rate and Rhythm, S1/S2 Lungs: Positive: Decreased Breath Sounds Neuro: Positive: Grossly Intact Abdomen: Positive: Soft Skin: Negative: Rash, Wound Musculoskeletal: No Pain Extremities: Present: edema, +1 Edema (BLE) - Labs and Meds Cardiac Enzymes 05/02/18 05/03/18 Range/Units 20:17 03:00 AST 114 H 114 H (5-40) units/L CBC 05/03/18 Range/Units 03:00 Hgb 11.0 (10.1-14.3) gm/dl Hct 34.4 (30.3-42.9) % Plt Count 222 (140-440) K/mm3 Comprehensive Metabolic Panel 05/02/18 05/03/18 Range/Units 20:17 03:00 Sodium 128 L 125 L (137-145) mmol/L Potassium 4.6 3.9 (3.6-5.0) mmol/L Chloride 89.9 L 90.4 L (98-107) mmol/L Carbon Dioxide 21 L 23 (22-30) mmol/L BUN 18 H 17 (7-17) mg/dL Creatinine 1.1 1.0 (0.7-1.2) mg/dL Glucose 106 H 133 H (65-100) mg/dL Calcium 8.8 8.4 (8.4-10.2) mg/dL Direct Bilirubin 1.7 H (0-0.2) mg/dL Indirect Bilirubin 3.2 mg/dL AST 114 H 114 H (5-40) units/L ALT 154 H 156 H (7-56) units/L Alkaline Phosphatase 112 94 (35-129) units/L Total Protein 6.5 5.9 L (6.3-8.2) g/dL Albumin 3.8 L 3.3 L (3.9-5) g/dL - Imaging and Cardiology Echo: report reviewed (03/2018: EF 45-50%, LA severely dilated, severe MR, mod TR, mod pulm HTN RVSP 51mmHg, large pericardial effusion, no tamponade.) - Telemetry EKG Rhythm: Sinus Rhythm
[2018-05-03] MEDS ORDERED: LASIX IV SCH (11:10)
--- NOTE | 2018-05-03 12:11 | Progress Note ---
Assessment and Plan Imp: 1. Afib w/ RVR, perhaps triggered by cholecystitis 2. Cholecystitis 3. COPD w/o exac. 4. Chronic systolic CHF 5. Pericardial effusion 6. Mitral regurgitation 7. Pulm HTN 2/2 #'s 3-6 8. GERD Rec: 1. Afib per cardiology 2. Moderate risk pulmonary-duarte for cholecystectomy; suspect majority of her risk is cardiac 3. COPD appears stable currently; monitor; no need for systemic steroids 4. PPI 5. On SubQ heparin while Eliquis is held 6. Stop smoking, counseled 7. Further plans pending clinical course Subjective Date of service: 05/03/18 Principal diagnosis: COPD, Afib w/ RVR Interval history: No acute events over the weekend. Stable. Awaiting Gallbladder removal Objective Vital Signs - 12hr 05/03/18 05/03/18 05/03/18 00:14 04:24 08:13 Temperature 97.0 F L 98.0 F 97.3 F L Pulse Rate 82 84 102 H Respiratory 18 18 18 Rate Blood Pressure 94/56 94/67 113/83 O2 Sat by Pulse 97 98 96 Oximetry 05/03/18 10:00 Temperature Pulse Rate Respiratory Rate Blood Pressure O2 Sat by Pulse 97 Oximetry Constitutional: no acute distress, alert Eyes: non-icteric ENT: oropharynx moist Neck: supple Ascultation: Bilateral: clear, diminished breath sounds (bases) Cardiovascular: irregular rhythm (tachy, no r/g; II/ systolic murmur throughout) Gastrointestinal: normoactive bowel sounds, non-distended Integumentary: normal Extremities: no cyanosis, pink and warm, edema (mild or trace, pretibial) Neurologic: normal mental status, non-focal exam, pupils equal and round, CN II- XII normal Psychiatric: mood appropriate, affect normal CBC and BMP: 05/03/18 03:00 05/03/18 03:00 ABG, PT/INR, D-dimer: PT/INR, D-dimer PT 15.5 Sec. (12.2-14.9) H 04/29/18 11:07 INR 1.16 (0.87-1.13) H 04/29/18 11:07 Abnormal lab findings: Abnormal Labs 04/25/18 04/25/18 04/25/18 06:58 06:58 06:58 WBC RDW 16.6 H [place] % (Auto) 9.9 H Baso % (Auto) 2.1 H [place] # Baso # 0.2 H PT INR Heparin Anti-Xa Level Sodium 135 L Potassium 3.4 L Chloride 95.2 L Carbon Dioxide BUN 18 H Glucose 126 H Total Bilirubin Direct Bilirubin AST ALT NT-Pro-B Natriuret Pep Total Protein Albumin TSH Free T4 2.31 H 04/25/18 04/26/18 04/26/18 06:58 04:49 04:54 WBC RDW 16.6 H [place] % (Auto) 9.7 H Baso % (Auto) [place] # 1.0 H Baso # PT INR Heparin Anti-Xa Level Sodium Potassium Chloride Carbon Dioxide BUN Glucose Total Bilirubin 4.60 H Direct Bilirubin 1.2 H AST 52 H ALT NT-Pro-B Natriuret Pep 5335 H Total Protein 5.8 L Albumin 3.3 L TSH Free T4 04/27/18 04/27/18 04/28/18 04:12 04:12 04:35 WBC RDW [place] % (Auto) Baso % (Auto) [place] # Baso # PT 20.7 H INR 1.66 H Heparin Anti-Xa Level Sodium Potassium Chloride Carbon Dioxide BUN Glucose Total Bilirubin 3.60 H 3.80 H Direct Bilirubin 1.1 H 1.0 H AST 62 H 82 H ALT 77 H 116 H NT-Pro-B Natriuret Pep Total Protein 5.9 L Albumin 3.4 L 3.6 L TSH Free T4 04/28/18 04/29/18 04/29/18 04:35 11:07 20:03 WBC RDW [place] % (Auto) Baso % (Auto) [place] # Baso # PT 15.5 H INR 1.16 H Heparin Anti-Xa Level 1.24 H Sodium 134 L Potassium Chloride 96.0 L Carbon Dioxide BUN Glucose 139 H Total Bilirubin Direct Bilirubin AST ALT NT-Pro-B Natriuret Pep Total Protein Albumin TSH Free T4 04/30/18 04/30/18 05/01/18 06:16 18:19 04:20 WBC 12.9 H RDW 16.8 H [place] % (Auto) Baso % (Auto) [place] # Baso # PT INR Heparin Anti-Xa Level 0.99 H Sodium Potassium Chloride Carbon Dioxide BUN Glucose Total Bilirubin 4.90 H Direct Bilirubin 1.5 H AST 42 H ALT 88 H NT-Pro-B Natriuret Pep Total Protein Albumin 3.6 L TSH Free T4 05/01/18 05/01/18 05/02/18 04:20 20:09 20:17 WBC RDW [place] % (Auto) Baso % (Auto) [place] # Baso # PT INR Heparin Anti-Xa Level 0.80 H 0.24 L Sodium 130 L Potassium Chloride 91.1 L Carbon Dioxide 21 L BUN Glucose 132 H Total Bilirubin 4.90 H Direct Bilirubin 1.8 H AST 41 H ALT 76 H NT-Pro-B Natriuret Pep Total Protein 6.1 L Albumin 3.4 L TSH Free T4 05/02/18 05/03/18 05/03/18 20:17 03:00 10:32 WBC RDW [place] % (Auto) Baso % (Auto) [place] # Baso # PT INR Heparin Anti-Xa Level Sodium 128 L 125 L Potassium Chloride 89.9 L 90.4 L Carbon Dioxide 21 L BUN 18 H Glucose 106 H 133 H Total Bilirubin 4.90 H 4.50 H Direct Bilirubin 1.7 H AST 114 H 114 H ALT 154 H 156 H NT-Pro-B Natriuret Pep Total Protein 5.9 L Albumin 3.8 L 3.3 L TSH Free T4 2.78 H 05/03/18 10:32 WBC RDW [place] % (Auto) Baso % (Auto) [place] # Baso # PT INR Heparin Anti-Xa Level Sodium Potassium Chloride Carbon Dioxide BUN Glucose Total Bilirubin Direct Bilirubin AST ALT NT-Pro-B Natriuret Pep Total Protein Albumin TSH 7.010 H Free T4
[2018-05-03 12:58] VITALS: BP 107/72
--- NOTE | 2018-05-03 13:36 | Discharge Summary ---
Providers - Providers Date of Admission: 04/25/18 08:30 Attending physician: GELA CATALAN MD 04/25/18 10:07 Consult to Physician [CONS] Routine Comment: Consulting Provider: KIRBY BAHENA Physician Instructions: Reason For Exam: a.fib with RVR Consult to Physician [CONS] Routine Comment: Consulting Provider: SHANA VELA Physician Instructions: Reason For Exam: a.fib with RVR 04/25/18 10:31 Consult to Physician [CONS] Routine Comment: Consulting Provider: JAZIEL CARABALLO Physician Instructions: Reason For Exam: right upper quadrant pain, gall stone 04/27/18 09:41 Physical Therapy Evaluation and Treat [CONS] Routine Comment: Reason For Exam: Debility 05/03/18 08:47 Consult to Physician [CONS] Routine Comment: Consulting Provider: ANNEMARIE BABIN Physician Instructions: Reason For Exam: hyponatremia Primary care physician: JANEY LI Hospitalization Reason for admission: cholecystitis Condition: Stable Hospital course: 57 year old -R[place] female with past medical history significant for mitral valve prolapse, A. fib, systolic CHF, panic attack, GERD, cholecystitis, hernia, tobacco use disorder, COPD presented to the emergency department for complaints of palpitation. Patient says chest palpitation for the last 1 month. Patient subsequently complaining epigastric burning pain which he attributed to her GERD. Patient is also complaining shortness of breath. Patient is admitted a month ago and was treated for A.fib and CHF. Patient was in A. fib with RVR, started on amiodarone drip but couldn't start Cardizem drip because of low blood pressure. Currently undergoing work up and risk assessment for cholecystectomy. Initially noted elevated LFT likely secondary to CHF and for that reason MRCP being held. During hospitalization patient was seen by surgery and cardiology, pulmonary. Attempt to optimize the patient was ongoing but unfortunatley her cardiac conditions continued to worsen with repeat ECHO showing EF 30-35%, restrictive diastolic filling, LA severely dilated, marked prolapse of the anterior leaflet of the mitral valve, severe MR, severe TR, large pericardial effusion which may be potentially hemodynamically significant, hepatic vein dilated. This raised concern about management at the facility and need for transfer to tertiary care facility for advanced management of acute heart failure in the setting of severe MR and large pericardial effusion has been arranged. Dr. Strange ([place] [facility]) On re-evaluation by Cardiology- worsening, c/o nausea, vomiting and SOB this morning. Noted to have BLE edema. Will d/c amio gtt in setting of elevated LFTs. Cont cardizem. Initiate scheduled IV lasix BID, cont as BPs permit. Worsening hyponatremia also noted, nephrology following. Discharge Diagnosis A fib with RVR, with marginally low blood pressure Acute on chronic Respiratory failure with Hypoxia Cholecystitis/umbilical Hernia/Abdominal pain Acute on Chronic Systolic CHF GERD Panic attack/Anixety Pericardial effusion Passive Hepatic Congestion COPD without exacerbation/Pulmonary HTN Pericardial effusion Mitral regurgitation Pulm HTN / #'s 3-6 GERD Disposition: DC/TX-70 ANOTHER TYPE HLTHCARE Time spent for discharge: 35 mins Core Measure Documentation - Palliative Care Palliative Care/ Comfort Measures: Not Applicable - Core Measures Any of the following diagnoses?: heart failure - Heart Failure Discharge Requirements DESTINEE/ARB for LVSD if EF <40%: Yes Beta herrera at discharge: Yes Exam - Physical Exam Narrative exam: VITAL SIGNS: Reviewed. GENERAL: The patient appeared well nourished and normally developed. Vital signs as documented. HEAD: No signs of head trauma. EYES: Pupils are equal. Extraocular motions intact. EARS: Hearing grossly intact. MOUTH: Oropharynx is normal. NECK: No adenopathy, no JVD. CHEST: Chest with clear breath sounds bilaterally. No wheezes, rales, or rhon chi. CARDIAC: Irregularly irregular. S1 and S2, without murmurs, gallops, or rubs. VASCULAR: Trace Edema. Peripheral pulses normal and equal in all extremities. ABDOMEN: Soft,Tender to palpation. No sign of distention. No rebound or guarding, and no masses palpated. Bowel Sounds normal. MUSCULOSKELETAL: Good range of motion of all major joints. Extremities without clubbing, cyanosis. noted trace edema bilateral lower ext. NEUROLOGIC EXAM: Alert and oriented x 3. No focal sensory or strength deficits. Speech normal. Follows commands. PSYCHIATRIC: Mood normal. SKIN: No rash or lesions. - Constitutional Vitals: Temp Pulse Resp BP Pulse Ox 97.5 F L 86 18 107/72 95 05/03/18 12:53 05/03/18 12:53 05/03/18 12:53 05/03/18 12:53 05/03/18 12:53 Plan Follow up with: JANEY LI MD [Primary Care Provider] - 7 Days
[2018-05-03] MEDS: PROVENTIL IH PRN (13:46)
== END 2018-05-03 15:52 | disposition short-term general hospital (02) | DRG 291 ==
LOC: ED 05:44 → CC1 08:30 → 4A 04-28 13:50
PROVIDERS: ADMIT Internal Medicine; ATTEND Internal Medicine
DX: I11.0 Hypertensive heart disease with heart failure (principal); J96.21 Acute and chronic respiratory failure with hypoxia; E87.1 Hypo-osmolality and hyponatremia; I31.3 Pericardial effusion (noninflammatory); I50.23 Acute on chronic systolic (congestive) heart failure; I42.9 Cardiomyopathy, unspecified; I48.91 Unspecified atrial fibrillation; K42.9 Umbilical hernia without obstruction or gangrene; K21.9 Gastro-esophageal reflux disease without esophagitis; J44.9 Chronic obstructive pulmonary disease, unspecified; F41.0 Panic disorder [episodic paroxysmal anxiety]; I27.20 Pulmonary hypertension, unspecified; K76.1 Chronic passive congestion of liver; F17.210 Nicotine dependence, cigarettes, uncomplicated; E87.6 Hypokalemia; K81.1 Chronic cholecystitis; I34.0 Nonrheumatic mitral (valve) insufficiency; Z88.5 Allergy status to narcotic agent; Z79.899 Other long term (current) drug therapy
CPT/HCPCS: 36415; 71045; 74018; 74177; 80048; 80053; 80076; 82247; 82248; 82533; 82550; 82553; 83690; 83735; 83880; 83930; 84439; 84443; 84484; 84550; 85014; 85018; 85025; 85027; 85049; 85520; 85610; 85730; 93005; 93010; 93306; 94640; 94760; 96365; 96375; 99406; G0378; J0282; J1170; J1644; J1940; J2405; J7060; Q0164; Q9967

== ENCOUNTER 2018-06-09 16:32 | Emergency (ER) | payer MEDICARE ==
--- NOTE | 2018-06-09 16:59 | Emergency Department Report ---
Chief Complaint: Dyspnea/Respdistress Stated Complaint: RT SIDE PAIN Time Seen by Provider: 06/09/18 16:56 - HPI History of Present Illness: pt presents for SOB that two days ago (+) dry cough congestion no fever hx of COPD pt states she had MVP on 05/24/18 at [facility] screening note: Focused history and physical exam performed. Due to findings the following was ordered: labs, CXR, EKG ED [place] [facility] [place] Condition: Stable
--- NOTE | 2018-06-09 18:25 | XRay Report ---
PROCEDURE: XR CHEST ROUTINE 2V TECHNIQUE: 2V chest HISTORY: recent MVP repair COMPARISONS: FINDINGS: Cardiac valve prosthesis are noted. There are sternotomy wires. Cardiac silhouette is borderline enla rged. No focal pulmonary infiltrate identified. No pleural fluid collection seen. Pulmonary vasculatu re is unremarkable. IMPRESSION: Borderline cardiomegaly Cardiac valve prosthesis. This document is electronically signed by Pasquale Masters MD., June 09 2018 06:23:42 PM ET
[2018-06-09 18:55] LABS: Hematocrit 36.4 % (30.3-42.9); Hemoglobin 11.8 gm/dl (10.1-14.3); Mean Corpuscular HGB Conc 32 % (30-34); Mean Corpuscular Volume 83 fl (79-97); Platelet Count 416 K/mm3 (140-440); Red Blood Count 4.38 M/mm3 (3.65-5.03); Red Cell Distribution Width 18.2 % (13.2-15.2)
[2018-06-09 19:19] LABS: BUN/Creatinine Ratio 15; Blood Urea Nitrogen 12 mg/dL (7-17); Calcium 9.4 mg/dL (8.4-10.2); Hemolysis Index 9
[2018-06-09 19:42] LABS: INR 2.04 (0.87-1.13)
[2018-06-09 20:12] VITALS: BP 117/57
[2018-06-09 21:07] LABS: Anisocytosis 1+; Platelet Estimate Consistent w Auto; Total Cells Counted 100
--- NOTE | 2018-06-09 21:47 | Emergency Department Report ---
ED General Adult HPI - General Chief complaint: Dyspnea/Respdistress Stated complaint: RT SIDE PAIN Time Seen by Provider: 06/09/18 16:56 Source: patient Mode of arrival: Ambulatory Limitations: No Limitations - History of Present Illness Initial comments: 57 year old -[place] female with a recent valvular replacement about [address] Mcleod at [facility] and with past medical history significant for mitral valve prolapse, A. fib, systolic CHF, panic attack, GERD, cholecystitis, hernia, tobacco use disorder, COPD presented to the emergency department for a 3 day history complaints of right-sided pain to the flank that radiates to chest associated with shortness of breath off and on.. Pain is a dull ache, worse with certain positions. Reports no presyncope, palpitations, dizziness, does wears nasal oxygen at home. No hemoptysis, no hematemesis or hematochezia. -: Sudden Location: chest Radiation: non-radiation Severity scale (0 -10): 0 Quality: burning, dull Consistency: constant Improves with: none Associated Symptoms: chest pain. denies: diaphoresis, malaise, nausea/vomiting, shortness of breath, weakness, other - Related Data Home Medications Medication Instructions Recorded Confirmed Last Taken ALPRAZolam [Xanax TAB] 0.25 mg PO TID PRN 04/25/18 04/25/18 Unknown Apixaban [Eliquis] 5 mg PO Q12HR 04/25/18 04/25/18 Unknown Furosemide [Lasix TAB] 40 mg PO QDAY 04/25/18 04/25/18 Unknown Metoprolol [Lopressor] 25 mg PO BID 04/25/18 04/25/18 Unknown Potassium Chloride [K-Dur] 20 meq PO QDAY 04/25/18 04/25/18 Unknown Allergies Allergy/AdvReac Type Severity Reaction Status Date / Time morphine Allergy Rash Verified 02/27/18 12:48 ED Review of Systems ROS: Stated complaint: RT SIDE PAIN Other details as noted in HPI Constitutional: denies: chills, fever Eyes: denies: eye pain, eye discharge, vision change ENT: denies: ear pain, throat pain Respiratory: shortness of breath. denies: wheezing Cardiovascular: chest pain. denies: palpitations Endocrine: no symptoms reported Gastrointestinal: denies: abdominal pain, nausea, diarrhea Genitourinary: denies: urgency, dysuria, discharge Musculoskeletal: denies: back pain, joint swelling, arthralgia Skin: denies: rash, lesions Neurological: denies: headache, weakness, paresthesias Psychiatric: denies: anxiety, depression Hematological/Lymphatic: denies: easy bleeding, easy bruising ED Past Medical Hx - Past Medical History Previous Medical History?: No Hx Hypertension: No Hx CVA: No Hx Heart Attack/AMI: No Hx Congestive Heart Failure: Yes Hx Diabetes: No Hx Deep Vein Thrombosis: No Hx Pulmonary Embolism: No Hx GERD: Yes Hx Liver Disease: No Hx Renal Disease: No Hx of Cancer: No Hx Sickle Cell Disease: No Hx Arthritis: No Hx Headaches / Migraines: No Hx Seizures: No Hx Kidney Stones: No Hx Psychiatric Treatment: No Hx Asthma: Yes Hx COPD: Yes (O2-2lpm continuously) Hx Tuberculosis: No Hx Dementia: No Hx HIV: No Additional medical history: gall stones, fibroids, MVP, myomectomy - Surgical History Past Surgical History?: Yes Hx Coronary Stent: No Hx Open Heart Surgery: No Hx Pacemaker: No Hx Internal Defibrillator: No Hx Cholecystectomy: No Hx Appendectomy: No Hx Breast Surgery: No Additional Surgical History: fibroid removal - Social History Smoking Status: Current Every Day Smoker - Medications Home Medications: Home Medications Medication Instructions Recorded Confirmed Last Taken Type ALPRAZolam [Xanax TAB] 0.25 mg PO TID PRN 04/25/18 04/25/18 Unknown History Apixaban [Eliquis] 5 mg PO Q12HR 04/25/18 04/25/18 Unknown History Furosemide [Lasix TAB] 40 mg PO QDAY 04/25/18 04/25/18 Unknown History Metoprolol [Lopressor] 25 mg PO BID 04/25/18 04/25/18 Unknown History Potassium Chloride [K-Dur] 20 meq PO QDAY 04/25/18 04/25/18 Unknown History ED Physical Exam - General Limitations: No Limitations General appearance: alert, in no apparent distress - Head Head exam: Present: atraumatic, normocephalic - Eye Eye exam: Present: normal appearance - ENT ENT exam: Present: mucous membranes moist - Neck Neck exam: Present: normal inspection - Respiratory Respiratory exam: Present: normal lung sounds bilaterally, other (decreased breath sounds at the bases). Absent: respiratory distress, wheezes, rales, chest wall tenderness, accessory muscle use - Cardiovascular Cardiovascular Exam: Present: regular rate, normal rhythm. Absent: systolic murmur, diastolic murmur, rubs, gallop - GI/Abdominal GI/Abdominal exam: Present: soft, normal bowel sounds - Extremities Exam Extremities exam: Present: normal inspection, normal capillary refill (pitting edema). Absent: pedal edema - Back Exam Back exam: Present: normal inspection, full ROM. Absent: CVA tenderness (R) - Neurological Exam Neurological exam: Present: alert, oriented X3, CN II-XII intact, normal gait - Psychiatric Psychiatric exam: Present: normal affect, normal mood - Skin Skin exam: Present: warm, dry, intact, normal color. Absent: rash ED Course Vital Signs 06/09/18 20:11 Temperature 98.6 F Pulse Rate 85 Respiratory 17 Rate Blood Pressure 117/57 [Left] O2 Sat by Pulse 100 Oximetry - Reevaluation(s) Reevaluation #1: 06/09/18 21:55 Mrs travis is ambulatory without limitations. No sob or current chest pain. - Consultations Consultation #1: 06/09/18 20:[address] Healy who will plan a half [id number] with the patient see his note for detail. Plan is to consult with cardiology for definitive disposition Consultation #2: 06/09/18 21:[address] Mitchell of [facility] is aware of the findings of the laboratory data and the chest x-ray and EKG. Plan is going to be the have Ms. Travis follow-up with cardiology tomorrow or Thursday, which they are aware of the knee. She'll be restricted activity until that time ED Medical Decision Making - Lab Data Result diagrams: 06/09/18 18:04 06/09/18 17:43 Critical care attestation.: If time is entered above; I have spent that time in minutes in the direct care of this critically ill patient, excluding procedure time. ED Disposition Clinical Impression: Dyspnea, Flank pain, Right-sided chest pain Disposition: DC-01 TO HOME OR SELFCARE Is pt being admited?: No Does the pt Need Aspirin: No Condition: Stable Instructions: Chest Pain (ED) Referrals: DEVAN MITCHELL MD [Staff Physician] - 24 Hours JAZZ MITCHELL MD [Staff Physician] - 24 Hours [facility] [Staff Physician] - 24 Hours
[2018-06-09] MEDS ORDERED: NORCO 5/325 PO ONE (22:10)
[2018-06-09] MEDS ORDERED: NORCO 5/325 ONE (22:15)
== END 2018-06-09 22:01 | disposition home or self-care (01) ==
LOC: ED 16:32
DX: R10.9 Unspecified abdominal pain (principal); R07.9 Chest pain, unspecified; R06.00 Dyspnea, unspecified; K21.9 Gastro-esophageal reflux disease without esophagitis; J44.9 Chronic obstructive pulmonary disease, unspecified; F17.200 Nicotine dependence, unspecified, uncomplicated
CPT/HCPCS: 36415; 71046; 80048; 83880; 85007; 85025; 85610; 85730; 93005; 93010

== ENCOUNTER 2018-07-05 17:42 | Emergency (ER) | payer MEDICARE ==
--- NOTE | 2018-07-05 18:34 | Emergency Department Report ---
Chief Complaint: Head Injury Stated Complaint: HIT HEAD Time Seen by Provider: 07/05/18 18:31 - HPI History of Present Illness: pt states she hit her head under a flat screen tv at 12:20 PM no LOC no vision changes no numbness or weakness pt is on warfarin no ARELLANO PMHx GERD, HLD PSHx MVP replacement (+) smoker non drinker no drug use MSE screening note: Focused history performed. Due to findings the following was ordered: CT head ED Disposition for MSE Condition: Stable
[2018-07-05 18:38] VITALS: BP 110/49
--- NOTE | 2018-07-05 19:16 | Cat Scan Report ---
PROCEDURE: CT head without contrast. TECHNIQUE: Axial imaging was done of the head without contrast. HISTORY: Hit head, taking Coumadin. COMPARISONS: None. FINDINGS: The ventricles are normal in size. The ruby matter and white matter appear normal. There are no mass lesions. There is no intracranial hemorrhage. The calvarium appears intact. The mastoid air cells and paranasal sinuses are clear as far as visualized. IMPRESSION: Normal study. This document is electronically signed by Rick June MD., July 05 2018 07:14:17 PM ET
[2018-07-05] MEDS ORDERED: TYLENOL PO ONE (22:21)
--- NOTE | 2018-07-05 22:23 | Emergency Department Report ---
Head Injury w/o Laceration - HPI Chief Complaint: Head Injury Stated Complaint: HIT HEAD Time Seen by Provider: 07/05/18 18:31 Head Inj w/o Lac: Yes Headache, No Loss of Consciousness, No Nausea, No Blurred Vision, No Altered Mental Status, No Focal Deficit, No Swelling, No Bruising, No Break in Skin, No Bleeding Other History: 57 Y/O female pt states she hit her head under a flat screen tv at 12:20 PM no LOC, no vision changes, no numbness or weakness. Pt is on warfarin no ARELLANO. Patient denies any nausea vomiting. ED General PMH - Social History Smoking Status: Current Every Day Smoker ED Neuro ROS - Review of Systems Constitutional: no symptoms reported Eyes (ROS): no symptoms reported Ears, Nose, Mouth, Throat: no symptoms reported Respiratory: no symptoms reported Cardiology: no symptoms reported Gastrointestinal/Abdominal: no symptoms reported Genitourinary: no symptoms reported Musculoskeletal: no symptoms reported Skin: no symptoms reported Neurological: no symptoms reported Endocrine: no symptoms reported Hematologic/Lymphatic: no symptoms reported All Other Systems: Reviewed and Negative Head Injury W/O Lac Exam - Exam General: Vital signs noted. No distress. Alert and acting appropriately. Head: Yes Pupils are PERRL, No Hemotympanum, No Hematoma/Ecchymosis, No Epist axis, No Stepoff/Deformity, No Laceration, No Abrasion Chest, Abd, & Ext: Yes Clear Lung Sounds, Yes Regular Heart Rhythm, No Neck Pain, No Chest Injury/Pain, No Heart Murmur, No Abdominal Tenderness, No Back Tenderness, No Extremity Injury Neuroligical (Head Inj W/O Lac: Yes Normal Speech, Yes Normal Gait, No Lethargy, No Disorientation, No Focal Numbness, No Focal Weakness Exam: no facial droop. Tongue midline. Extraocular movements intact bilaterally. Facial sensation intact to light touch in V1, V2, V3 distribution bilaterally strength 5 out of 5 in all extremities. Sensation intact to light touch in 4 extremities. ED Critical Care Note - Critical Care Note Comments: Patient: KAYLEE RAMEY MR#: [id number] : 1960 Acct:[id number] Age/Sex: 57 / F ADM Date: 07/05/18 Loc: ED Attending Dr: Ordering Physician: AMISH ROSS Date of Service: 07/05/18 Procedure(s): CT head/brain wo con Accession Number(s): [id number] cc: AMISH ROSS PROCEDURE: CT head without contrast. TECHNIQUE: Axial imaging was done of the head without contrast. HISTORY: Hit head, taking Coumadin. COMPARISONS: None. FINDINGS: The ventricles are normal in size. The ruby matter and white matter appear normal. There are no mass lesions. There is no intracranial hemorrhage. The calvarium appears intact. The mastoid air cells and paranasal sinuses are clear as far as visualized. IMPRESSION: Normal study. This document is electronically signed by Rick Peres MD., July 05 2018 07:14:17 PM ET Transcribed By: MRM Dictated By: RICK PERES MD Electronically Authenticated By: RICK PERES MD Signed Date/Time: 07/05/181915 DD/ 08 TD/TT: 07/05/181908 ED Disposition Clinical Impression: Minor head injury without loss of consciousness Qualifiers: Encounter type: initial encounter Qualified Code(s): S09.90XA - Unspecified injury of head, initial encounter Disposition: DC-01 TO HOME OR SELFCARE Is pt being admited?: No Does the pt Need Aspirin: No Condition: Stable Instructions: Minor Head Injury (ED) Additional Instructions: You can take [id number] Tylenol for pain management. Please return back to the emergency room if there is any altered mental status. Uncontrollable nausea and vomiting. Change of vision. Recommend you to follow-up with her primary care provider in the next 3-5 days for recheck. Referrals: JANEY LI MD [Primary Care Provider] - 3-5 Days Forms: Accompanied Note, Work/School Release Form(ED)
== END 2018-07-05 22:55 | disposition home or self-care (01) ==
LOC: ED 17:42
DX: S06.0X0A Concussion without loss of consciousness, initial encounter (principal); F17.200 Nicotine dependence, unspecified, uncomplicated; Z88.5 Allergy status to narcotic agent; W22.8XXA Striking against or struck by other objects, initial encounter; Y93.89 Activity, other specified; Y92.89 Other specified places as the place of occurrence of the external cause; Y99.8 Other external cause status
CPT/HCPCS: 70450; 99283

== ENCOUNTER 2018-09-06 17:44 | Emergency (ER) | payer MEDICARE ==
--- NOTE | 2018-09-06 18:01 | Emergency Department Report ---
Blank Doc - Documentation Documentation: This is a 57-year-old female that presents with GI bleed symptoms. PAtient is on coumadin. This initial assessment/diagnostic orders/clinical plan/treatment(s) is/are subject to change based on patient's health status, clinical progression and re- assessment by fellow clinical providers in the ED. Further treatment and workup at subsequent clinical providers discretion. Patient/guardians urged not to elope from the ED as their condition may be serious if not clinically assessed and managed. Initial orders include: 1- Patient sent to MAIN ED for further evaluation and treatment. 2- labs 3- UA
[2018-09-06] MEDS ORDERED: PROTONIX IV ONE (19:01)
--- NOTE | 2018-09-06 19:01 | Emergency Department Report ---
HPI - General Chief Complaint: Abdominal Pain Time Seen by Provider: 09/06/18 18:00 - HPI HPI: 57-year-old -[place] female presents to the emergency Department with complaints of abdominal pain and some rectal bleeding. The symptoms have been going on since yesterday. The abdominal pain is generalized first in the upper quadrants. The patient says "I think it's my gallstones or my ulcer." She says that the rectal bleeding is very mild and is a small amount of red blood seen on the toilet paper when she has a bowel movement over the past 24 hours. She has a past medical history of CHF, asthma, COPD, GERD, gallstones, mitral valve prolapse, mechanical valve. She is on 2 L of oxygen via nasal cannula for her COPD. She is on Coumadin for the mechanical valve and says her last INR was 2.3. Her primary care physician is Dr. Huston, her heddle machine operator is Dr. Mcleod, and her quarrying specialist is Dr. Styles. ED Past Medical Hx - Past Medical History Previous Medical History?: Yes Hx Hypertension: No Hx CVA: No Hx Heart Attack/AMI: No Hx Congestive Heart Failure: Yes Hx Diabetes: No Hx Deep Vein Thrombosis: No Hx Pulmonary Embolism: No Hx GERD: Yes Hx Liver Disease: No Hx Renal Disease: No Hx Sickle Cell Disease: No Hx Arthritis: No Hx Headaches / Migraines: No Hx Seizures: No Hx Kidney Stones: No Hx Psychiatric Treatment: No Hx Asthma: Yes Hx COPD: Yes (O2-2lpm continuously) Hx Tuberculosis: No Hx Dementia: No Hx HIV: No Additional medical history: gall stones, fibroids, MVP, myomectomy - Surgical History Past Surgical History?: Yes Hx Coronary Stent: No Hx Open Heart Surgery: Yes Hx Pacemaker: No Hx Internal Defibrillator: No Hx Cholecystectomy: No Hx Appendectomy: No Hx Breast Surgery: No Additional Surgical History: fibroid removal - Social History Smoking Status: Current Every Day Smoker Substance Use Type: None - Medications Home Medications: Home Medications Medication Instructions Recorded Confirmed Last Taken Type ALPRAZolam [Xanax TAB] 0.25 mg PO TID PRN 04/25/18 09/06/18 Unknown History Apixaban [Eliquis] 5 mg PO Q12HR 04/25/18 09/06/18 Unknown History Furosemide [Lasix TAB] 40 mg PO QDAY 04/25/18 09/06/18 Unknown History Metoprolol [Lopressor] 25 mg PO BID 04/25/18 09/06/18 Unknown History Potassium Chloride [K-Dur] 20 meq PO QDAY 04/25/18 09/06/18 Unknown History Ciprofloxacin HCl [Ciprofloxacin 500 mg PO Q12HR #14 tab 09/07/18 Unknown Rx TAB] HYDROcodone/APAP 5-325 [[place] 1 each PO Q6HR PRN #8 tablet 09/07/18 Unknown Rx 5/325] metroNIDAZOLE [Flagyl] 500 mg PO Q12HR #14 tab 09/07/18 Unknown Rx ED Review of Systems ROS: Stated complaint: V/D Other details as noted in HPI Comment: All other systems reviewed and negative Constitutional: denies: chills, fever Eyes: denies: eye pain, vision change ENT: denies: ear pain, throat pain Respiratory: denies: cough, shortness of breath Cardiovascular: denies: chest pain, palpitations Gastrointestinal: abdominal pain, other (rectal bleeding). denies: nausea, vomiting Genitourinary: denies: dysuria, discharge Musculoskeletal: denies: back pain, arthralgia Skin: denies: rash, lesions Neurological: denies: headache, weakness Physical Exam - Physical Exam Vital Signs: Vital Signs 09/06/18 17:56 Temperature 99.1 F Pulse Rate 79 Respiratory 20 Rate Blood Pressure 114/58 O2 Sat by Pulse 97 Oximetry Physical Exam: GENERAL: The patient is well-developed well-nourished. HENT: Normocephalic. Atraumatic. Patient has moist mucous membranes. EYES: Extraocular motions are intact. NECK: Supple. Trachea is midline. CHEST/LUNGS: Clear to auscultation. There is no respiratory distress noted. HEART/CARDIOVASCULAR: Regular. There is no tachycardia. There is no murmur. ABDOMEN: Abdomen is soft. Generalized tenderness to palpation of the abdomen. No guarding. Patient has normal bowel sounds. There is no abdominal distention. SKIN: Skin is warm and dry. NEURO: The patient is awake, alert, and oriented. The patient is cooperative. The patient has no focal neurologic deficits. The patient has normal speech. MUSCULOSKELETAL: There is no tenderness or deformity. There is no evidence of acute injury. ED Course Vital Signs 09/06/18 17:56 Temperature 99.1 F Pulse Rate 79 Respiratory 20 Rate Blood Pressure 114/58 O2 Sat by Pulse 97 Oximetry ED Medical Decision Making - Lab Data Result diagrams: 09/06/18 18:32 09/06/18 18:32 - Radiology Data Radiology results: report reviewed, image reviewed interpreted by me: Abdominal x-ray shows nonspecific nonobstructive bowel gas CT abdomen pelvis wo con INDICATION / CLINICAL INFORMATION: Abd pain. TECHNIQUE: Axial CT imaging of abdomen and pelvis was performed without IV contrast. Coronal and sagittal reformatted imaging obtained and reviewed. All CT scans at this location are performed using CT dose reduction for ALARA by means of automated exposure control. COMPARISON: CT abdomen/pelvis, 05/02/2018 FINDINGS: CT abdomen without contrast demonstrates mild hepatomegaly without focal abnormality. Spleen, pancreas, right kidney, and adrenal glands all appear grossly unremarkable. 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 No hydronephrosis. Gallstones are present within the gallbladder. There is diffuse colonic wall thickening throughout the ascending colon, hepatic flexure and proximal transverse colon. The appearance is consistent with prominent colitis. The remainder of the GI tract is unremarkable. Very small amount of free fluid is seen in the dependent portion of the pelvis. Normal appendix is present in the right lower quadrant. The amount of free fluid present in the pelvis has actually significantly improved compared with the last CT scan of 05/02/2018. CT pelvis without contrast shows no additional significant finding. As stated above there is a left-sided pelvic kidney. There is mild sigmoid diverticulosis. There is diastases of the rectus abdominal musculature Visualized lung bases are grossly clear. Mild cardiomegaly is present. Mild spondylitic changes present in the spine. IMPRESSION: 1. Severe colitis involving the ascending colon and proximal transverse colon. 2. Cholelithiasis. 3. Small amount of ascites in the pelvis which has significantly improved compared with prior CT of 05/02/2018 - Medical Decision Making This patient presents to the emergency department with a complaint of abdominal pain. Abdominal CT unremarkable except for some elevated liver enzymes. Her pain is generalized but worse in the upper quadrants. Abdominal x-ray shows nonspecific nonobstructive bowel gas. CT scan of the abdomen and pelvis without contrast shows cholelithiasis without cholecystitis and colitis. The patient's white blood cell count of 20,000 is barely above the normal range. Her vital signs stable throughout her ED course including being afebrile. The patient had an improvement in her abdominal discomfort without any pain medications being given. For all these reasons, I feel that the patient is safe for discharge home to try and treat the colitis outpatient. She has good follow-up with gastroenterology. She was given some IV fluid resuscitation and a dose of IV antibiotics here. She will be discharged home with antibiotics and pain medication. She will return to the emergency Department with any worsening of her symptoms or any acute distress. - Differential Diagnosis colitis, diverticulitis, bowel obstruction, cholelithiasis, cholecystitis Critical Care Time: No Critical care attestation.: If time is entered above; I have spent that time in minutes in the direct care of this critically ill patient, excluding procedure time. ED Disposition Clinical Impression: Colitis, Elevated liver enzymes Cholelithiasis Qualifiers: Cholelithiasis location: gallbladder Cholecystitis presence: without cholecystitis Biliary obstruction: without biliary obstruction Qualified Code(s): K80.20 - Calculus of gallbladder without cholecystitis without obstr uction Abdominal pain Qualifiers: Abdominal location: generalized Qualified Code(s): R10.84 - Generalized abdominal pain Disposition: TO HOME OR SELFCARE Is pt being admited?: No Condition: Stable Instructions: Abdominal Pain (ED), Infectious Colitis (ED), Biliary Colic (ED) Additional Instructions: Please follow-up with your primary care physician and quarrying specialist in the next few days. Return to the emergency Department with any worsening of your symptoms or any acute distress. The antibiotics as prescribed. One of the antibiotics, Flagyl/metronidazole, has a very serious adverse reaction if mixed with alcohol of any quantity. Do not drink any alcohol while taking the antibiotics for up to 2 days after finishing it or else you may experience severe abdominal pain, nausea and vomiting. You have been prescribed a medication that is sedating and therefore should not be taken prior to driving, working, and responsible for children and in no way should be mixed with alcohol of any quantity. Prescriptions: Ciprofloxacin HCl [Ciprofloxacin TAB] 500 mg PO Q12HR #14 tab metroNIDAZOLE [Flagyl] 500 mg PO Q12HR #14 tab HYDROcodone/APAP 5-325 [[place] 5/325] 1 each PO Q6HR PRN #8 tablet PRN Reason: Pain Referrals: PCP, Your [Other] - 2-3 Days JULIUS STYLES MD [Staff Physician] - 2-3 Days Time of Disposition: 02:20
[2018-09-06 19:21] LABS: Basophils # (Auto) 0.1 K/mm3 (0.0-0.1); Basophils % (Auto) 0.8 % (0.0-1.8); Eosinophils # (Auto) 0.2 K/mm3 (0.0-0.4); Hematocrit 37.4 % (30.3-42.9); Hemoglobin 12.9 gm/dl (10.1-14.3); Lymphocytes # (Auto) 2.1 K/mm3 (1.2-5.4); Lymphocytes % (Auto) 17.9 % (13.4-35.0); Mean Corpuscular HGB Conc 34 % (30-34); Mean Corpuscular Volume 81 fl (79-97); Monocytes % (Auto) 8.1 % (0.0-7.3); Platelet Count 304 K/mm3 (140-440); Red Blood Count 4.62 M/mm3 (3.65-5.03); Red Cell Distribution Width 19.7 % (13.2-15.2)
[2018-09-06 19:38] LABS: INR 1.94 (0.87-1.13)
[2018-09-06 19:55] LABS: Albumin 4.1 g/dL (3.9-5); Calcium 9.1 mg/dL (8.4-10.2)
[2018-09-06] MEDS ORDERED: NACL 0.9% 250ML 250 ML IV ONE (19:57)
--- NOTE | 2018-09-06 20:38 | XRay Report ---
ABDOMEN 2 VIEWS INDICATION / CLINICAL INFORMATION: abd pain. COMPARISON: None available. FINDINGS: Bowel gas pattern is nonspecific, not indicative of obstruction. Multiple phleboliths in the pelvis, but no obvious abnormal mass or calcification. No free air. Signer Name: Meek Sarmiento MD Signed: 09/06/2018 8:34 PM Workstation Name: [id number]
[2018-09-06 22:12] LABS: Bacteria,Urine 1+ /HPF (Negative); Bilirubin,Urine NEG (Negative); Blood,Urine NEG (Negative); Color,Urine Yellow (Yellow); Protein,Urine <15 mg/dL mg/dL (Negative); Urobilinogen,Urine < 2.0 mg/dL (<2.0); WBC,Urine < 1.0 /HPF (0.0-6.0)
[2018-09-06] MEDS ORDERED: ATIVAN IV ONE (22:33)
--- NOTE | 2018-09-07 00:04 | Cat Scan Report ---
CT abdomen pelvis wo con INDICATION / CLINICAL INFORMATION: Abd pain. TECHNIQUE: Axial CT imaging of abdomen and pelvis was performed without IV contrast. Coronal and sagittal reform atted imaging obtained and reviewed. All CT scans at this location are performed using CT dose reduct ion for ALARA by means of automated exposure control. COMPARISON: CT abdomen/pelvis, 05/02/2018 FINDINGS: CT abdomen without contrast demonstrates mild hepatomegaly without focal abnormality. Spleen, pancrea s, right kidney, and adrenal glands all appear grossly unremarkable. There is a left pelvic kidney pr esent. No hydronephrosis. Gallstones are present within the gallbladder. There is diffuse colonic wall thickening throughout the ascending colon, hepatic flexure and proximal transverse colon. The appearance is consistent with prominent colitis. The remainder of the GI tract is unremarkable. Very small amount of free fluid is seen in the dependent portion of the pelvis. Nor mal appendix is present in the right lower quadrant. The amount of free fluid present in the pelvis h as actually significantly improved compared with the last CT scan of 05/02/2018. CT pelvis without contrast shows no additional significant finding. As stated above there is a left-s ided pelvic kidney. There is mild sigmoid diverticulosis. There is diastases of the rectus abdominal musculature Visualized lung bases are grossly clear. Mild cardiomegaly is present. Mild spondylitic changes present in the spine. IMPRESSION: 1. Severe colitis involving the ascending colon and proximal transverse colon. 2. Cholelithiasis. 3. Small amount of ascites in the pelvis which has significantly improved compared with prior CT of Signer Name: Sandie Tejada MD Signed: 09/07/2018 12:00 AM Workstation Name: [id number]
[2018-09-07] MEDS ORDERED: NACL 0.9% 1000 ML 1,000 ML IV ONE (00:17)
[2018-09-07] MEDS ORDERED: FLAGYL 500 MG/100 ML 500 MG/100 ML BAG IV ONE (00:17)
[2018-09-07] MEDS ORDERED: LEVAQUIN 750MG/150ML 750 MG/150 ML BAG IV ONE (00:17)
[2018-09-07 03:37] VITALS: BP 125/53
== END 2018-09-07 03:36 | disposition home or self-care (01) ==
LOC: ED 17:44
DX: K52.9 Noninfective gastroenteritis and colitis, unspecified (principal); K80.20 Calculus of gallbladder without cholecystitis without obstruction; R94.5 Abnormal results of liver function studies; I50.9 Heart failure, unspecified; K21.0 Gastro-esophageal reflux disease with esophagitis; J44.9 Chronic obstructive pulmonary disease, unspecified; F17.200 Nicotine dependence, unspecified, uncomplicated; Z98.890 Other specified postprocedural states; Z79.899 Other long term (current) drug therapy; Z88.8 Allergy status to other drugs, medicaments and biological substances; Z88.6 Allergy status to analgesic agent; Z91.041 Radiographic dye allergy status
CPT/HCPCS: 36415; 74019; 74176; 80053; 81001; 83690; 85025; 85610; 85730; 86850; 86900; 86901; 93005; 93010; 96361; 96365; 96366; 96368; 96375; 99284; C9113; J1956; J2060; J7030; J7050

== ENCOUNTER 2018-10-22 05:04 | Emergency (ER) | payer MEDICARE ==
[2018-10-22 05:11] VITALS: BP 123/44
--- NOTE | 2018-10-22 06:02 | Emergency Department Report ---
- General Chief complaint: Skin/Abscess/Foreign Body Stated complaint: LUMP ON LEFT ARM Time Seen by Provider: 10/22/18 05:57 Source: patient Mode of arrival: Ambulatory Limitations: No Limitations - History of Present Illness Initial comments: pt is a 58 y/o aaf who presents for left forearm bruising and swelling x this am pt denies fall injury or trauma . There has bee no fall injury or trauma there is no numbness no deformity. MD complaint: other (bruise contusion) Onset/Timin -: hour(s) Tetanus Up to Date: yes Location: LUE Severity: mild Severity scale (0 -10): 2 Quality: aching Consistency: intermittent Improves with: none Worsens with: palpation, movement Context: none Associated symptoms: athralgias Treatments Prior to Arrival: none - Related Data Home Medications Medication Instructions Recorded Confirmed Last Taken Furosemide [Lasix TAB] 40 mg PO QDAY 04/25/18 10/14/18 10/07/18 Potassium Chloride [K-Dur] 20 meq PO QDAY 04/25/18 10/14/18 10/07/18 Acetaminophen [Acetaminophen ER] 650 mg PO PRN PRN 10/14/18 10/14/18 10/03/18 Amiodarone [Cordarone 200 MG TAB] 200 mg PO BID 10/14/18 10/14/18 10/07/18 Arformoterol Nebu [Brovana Nebu] 15 mcg IH BID 10/14/18 10/14/18 10/07/18 Aspirin EC 81 mg PO DAILY 10/14/18 10/14/18 10/07/18 Atorvastatin [Lipitor] 80 mg PO QHS 10/14/18 10/14/18 10/06/18 Cetirizine HCl [Cetirizine 10mg 10 mg PO DAILY 10/14/18 10/14/18 10/07/18 chew] Escitalopram Oxalate [Lexapro] 5 mg PO DAILY 10/14/18 10/14/18 10/07/18 Fluticasone/Salmeterol [Advair 1 puff PO BID PRN 10/14/18 10/14/18 10/06/18 Diskus 250-50 mcg] HYDROcodone/APAP 5-325 [[place] 1 tab PO PRN PRN 10/14/18 10/14/18 10/03/18 5-325 mg TAB] Pantoprazole [Protonix TAB] 40 mg PO DAILY 10/14/18 10/14/18 10/07/18 Proventil Hfa 2 puff INHALATION Q4H PRN 10/14/18 10/14/18 10/07/18 Sennosides Tab [Senokot] 1 tab PO BID PRN 10/14/18 10/14/18 10/06/18 Simethicone [Anti-Gas] 160 mg PO TID 10/14/18 10/14/18 10/07/18 Warfarin [Coumadin] 1 mg PO DAILY 10/14/18 10/14/18 10/07/18 Previous Rx's Medication Instructions Recorded Last Taken Type Acetaminophen [Acetaminophen ER] 650 mg PO QID PRN #30 tablet.er 10/22/18 Unknown Rx Allergies Allergy/AdvReac Type Severity Reaction Status Date / Time Iodinated Contrast- Oral and Allergy Swelling Verified 09/06/18 20:54 IV Dye morphine Allergy Rash Verified 10/14/18 06:45 Abscess Boil HPI - HPI Chief Complaint: Skin/Abscess/Foreign Body Stated Complaint: LUMP ON LEFT ARM Time Seen by Provider: 10/22/18 05:57 Home Medications: Home Medications Medication Instructions Recorded Confirmed Last Taken Furosemide [Lasix TAB] 40 mg PO QDAY 04/25/18 10/14/18 10/07/18 Potassium Chloride [K-Dur] 20 meq PO QDAY 04/25/18 10/14/18 10/07/18 Acetaminophen [Acetaminophen ER] 650 mg PO PRN PRN 10/14/18 10/14/18 10/03/18 Amiodarone [Cordarone 200 MG TAB] 200 mg PO BID 10/14/18 10/14/18 10/07/18 Arformoterol Nebu [Brovana Nebu] 15 mcg IH BID 10/14/18 10/14/18 10/07/18 Aspirin EC 81 mg PO DAILY 10/14/18 10/14/18 10/07/18 Atorvastatin [Lipitor] 80 mg PO QHS 10/14/18 10/14/18 10/06/18 Cetirizine HCl [Cetirizine 10mg 10 mg PO DAILY 10/14/18 10/14/18 10/07/18 chew] Escitalopram Oxalate [Lexapro] 5 mg PO DAILY 10/14/18 10/14/18 10/07/18 Fluticasone/Salmeterol [Advair 1 puff PO BID PRN 10/14/18 10/14/18 10/06/18 Diskus 250-50 mcg] HYDROcodone/APAP 5-325 [[place] 1 tab PO PRN PRN 10/14/18 10/14/18 10/03/18 5-325 mg TAB] Pantoprazole [Protonix TAB] 40 mg PO DAILY 10/14/18 10/14/18 10/07/18 Proventil Hfa 2 puff INHALATION Q4H PRN 10/14/18 10/14/18 10/07/18 Sennosides Tab [Senokot] 1 tab PO BID PRN 10/14/18 10/14/18 10/06/18 Simethicone [Anti-Gas] 160 mg PO TID 10/14/18 10/14/18 10/07/18 Warfarin [Coumadin] 1 mg PO DAILY 10/14/18 10/14/18 10/07/18 Previous Rx's Medication Instructions Recorded Last Taken Type Acetaminophen [Acetaminophen ER] 650 mg PO QID PRN #30 tablet.er 10/22/18 Unknown Rx Allergies/Adverse Reactions: Allergies Allergy/AdvReac Type Severity Reaction Status Date / Time Iodinated Contrast- Oral and Allergy Swelling Verified 09/06/18 20:54 IV Dye morphine Allergy Rash Verified 10/14/18 06:45 ED Review of Systems ROS: Stated complaint: LUMP ON LEFT ARM Other details as noted in HPI Constitutional: denies: chills, fever Eyes: as per HPI ENT: denies: ear pain, throat pain Respiratory: denies: cough, shortness of breath, wheezing Cardiovascular: denies: chest pain, palpitations Endocrine: no symptoms reported Gastrointestinal: denies: abdominal pain, nausea, diarrhea Genitourinary: denies: urgency, dysuria, discharge Musculoskeletal: other (bruising LFA). denies: back pain, joint swelling, arthralgia Skin: denies: rash, lesions Neurological: denies: headache, weakness, paresthesias Psychiatric: denies: anxiety, depression Hematological/Lymphatic: denies: easy bleeding, easy bruising ED Past Medical Hx - Past Medical History Hx Hypertension: No Hx CVA: No Hx Heart Attack/AMI: No Hx Congestive Heart Failure: Yes Hx Diabetes: No Hx Deep Vein Thrombosis: No Hx Pulmonary Embolism: No Hx GERD: Yes Hx Liver Disease: No Hx Renal Disease: No Hx Sickle Cell Disease: No Hx Arthritis: No Hx Headaches / Migraines: No Hx Seizures: No Hx Kidney Stones: No Hx Psychiatric Treatment: No Hx Asthma: Yes Hx COPD: Yes (O2-2lpm continuously) Hx Tuberculosis: No Hx Dementia: No Hx HIV: No Additional medical history: gall stones, fibroids, MVP, myomectomy - Surgical History Past Surgical History?: Yes Hx Coronary Stent: No Hx Open Heart Surgery: Yes Hx Pacemaker: No Hx Internal Defibrillator: No Hx Cholecystectomy: No Hx Appendectomy: No Hx Breast Surgery: No Additional Surgical History: fibroid removal - Social History Smoking Status: Current Every Day Smoker Substance Use Type: None - Medications Home Medications: Home Medications Medication Instructions Recorded Confirmed Last Taken Type Furosemide [Lasix TAB] 40 mg PO QDAY 04/25/18 10/14/18 10/07/18 History Potassium Chloride [K-Dur] 20 meq PO QDAY 04/25/18 10/14/18 10/07/18 History Acetaminophen [Acetaminophen ER] 650 mg PO PRN PRN 10/14/18 10/14/18 10/03/18 History Amiodarone [Cordarone 200 MG TAB] 200 mg PO BID 10/14/18 10/14/18 10/07/18 History Arformoterol Nebu [Brovana Nebu] 15 mcg IH BID 10/14/18 10/14/18 10/07/18 History Aspirin EC 81 mg PO DAILY 10/14/18 10/14/18 10/07/18 History Atorvastatin [Lipitor] 80 mg PO QHS 10/14/18 10/14/18 10/06/18 History Cetirizine HCl [Cetirizine 10mg 10 mg PO DAILY 10/14/18 10/14/18 10/07/18 History chew] Escitalopram Oxalate [Lexapro] 5 mg PO DAILY 10/14/18 10/14/18 10/07/18 History Fluticasone/Salmeterol [Advair 1 puff PO BID PRN 10/14/18 10/14/18 10/06/18 History Diskus 250-50 mcg] HYDROcodone/APAP 5-325 [[place] 1 tab PO PRN PRN 10/14/18 10/14/18 10/03/18 History 5-325 mg TAB] Pantoprazole [Protonix TAB] 40 mg PO DAILY 10/14/18 10/14/18 10/07/18 History Proventil Hfa 2 puff INHALATION Q4H PRN 10/14/18 10/14/18 10/07/18 History Sennosides Tab [Senokot] 1 tab PO BID PRN 10/14/18 10/14/18 10/06/18 History Simethicone [Anti-Gas] 160 mg PO TID 10/14/18 10/14/18 10/07/18 History Warfarin [Coumadin] 1 mg PO DAILY 10/14/18 10/14/18 10/07/18 History Acetaminophen [Acetaminophen ER] 650 mg PO QID PRN #30 tablet.er 10/22/18 Unknown Rx ED Physical Exam - General Limitations: No Limitations General appearance: alert, in no apparent distress - Head Head exam: Present: atraumatic, normocephalic - Eye Eye exam: Present: normal appearance, PERRL, EOMI Pupils: Present: normal accommodation - ENT ENT exam: Present: mucous membranes moist - Neck Neck exam: Present: normal inspection, full ROM. Absent: tenderness - Respiratory Respiratory exam: Present: normal lung sounds bilaterally. Absent: respiratory distress, wheezes, stridor, chest wall tenderness - Cardiovascular Cardiovascular Exam: Present: regular rate, normal rhythm, normal heart sounds. Absent: systolic murmur, diastolic murmur, rubs, gallop - GI/Abdominal GI/Abdominal exam: Present: soft, normal bowel sounds. 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 Absent: joint swelling - Expanded Upper Extremity Exam Left Forearm Wrist exam: Present: full ROM, tenderness, swelling. Absent: abrasion, laceration, ecchymosis, deformity, crepidus, dislocation, erythema, pain with axial thumb loading Hand Wrist exam: Present: normal inspection, full ROM. Absent: tenderness, swelling Neuro motor exam: Present: wrist extension intact, thumb opposition intact, thumb IP flexion intact, thumb adduction intact, fingers 2-5 abduction intact Neurosensory exam: Present: 2-point discrimination, radial nerve intact, ulnar nerve intact, median nerve intact Vascular: Present: normal capillary refill, radial pulse, brachial pulse, ulnar pulse. Absent: vascular compromise, pulse deficit radial art, pulse deficit ulnar art, pulse deficit brachial art - Back Exam Back exam: Present: normal inspection, full ROM. Absent: tenderness, rash noted - Neurological Exam Neurological exam: Present: alert, oriented X3, CN II-XII intact, normal gait, reflexes normal. Absent: motor sensory deficit - Psychiatric Psychiatric exam: Present: normal affect, normal mood - Skin Skin exam: Present: warm, dry, intact, normal color. 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 pt verbalized agreement and understanding of same. Critical care attestation.: If time is entered above; I have spent that time in minutes in the direct care of this critically ill patient, excluding procedure time. ED Disposition Clinical Impression: Forearm contusion Qualifiers: Encounter type: initial encounter Laterality: left Qualified Code(s): S50.12XA - Contusion of left forearm, initial encounter Disposition: TO HOME OR SELFCARE Is pt being admited?: No Does the pt Need Aspirin: No Condition: Stable Instructions: Contusion in Adults (ED) Prescriptions: Acetaminophen [Acetaminophen ER] 650 mg PO QID PRN #30 tablet.er PRN Reason: Pain , Severe (7-10) Referrals: UMBERTO TELLO MD [Staff Physician] - 3-5 Days Forms: Work/School Release Form(ED) Time of Disposition: 06:17
== END 2018-10-22 06:26 | disposition home or self-care (01) ==
LOC: ED 05:04
DX: S50.12XA Contusion of left forearm, initial encounter (principal); I50.9 Heart failure, unspecified; K21.9 Gastro-esophageal reflux disease without esophagitis; J45.909 Unspecified asthma, uncomplicated; J44.9 Chronic obstructive pulmonary disease, unspecified; Z98.890 Other specified postprocedural states; F17.200 Nicotine dependence, unspecified, uncomplicated; Z79.899 Other long term (current) drug therapy; Z88.8 Allergy status to other drugs, medicaments and biological substances; Z88.6 Allergy status to analgesic agent; Z91.041 Radiographic dye allergy status; X58.XXXA Exposure to other specified factors, initial encounter; Y93.89 Activity, other specified; Y92.89 Other specified places as the place of occurrence of the external cause; Y99.8 Other external cause status
CPT/HCPCS: 99282

== ENCOUNTER 2018-11-21 18:46 | Emergency (ER) | payer MEDICARE ==
--- NOTE | 2018-11-21 19:12 | Event Note ---
ED Screening Note Date of service: 11/21/18 Time: 19:08 ED Screening Note: This is a 58 y.o. F. that presents to the ER with low back pain and rash on face x 2 days. Denies dyspnea, difficulty swallowing, or injury This initial assessment/diagnostic orders/clinical plan/treatment(s) is/are jeffries bject to change based on patients health status, clinical progression and re- assessment by fellow clinical providers in the ED. Further treatment and workup at subsequent clinical providers discretion. Patient/guardian urged not to elope from the ED as their condition may be serious if not clinically assessed and managed. Initial orders include: XR L-spine and UA
[2018-11-21 19:46] LABS: Bilirubin,Urine NEG (Negative); Blood,Urine NEG (Negative); Color,Urine Yellow (Yellow); Mucus,Urine FEW /HPF; Protein,Urine <15 mg/dL mg/dL (Negative); Urobilinogen,Urine < 2.0 mg/dL (<2.0)
--- NOTE | 2018-11-21 20:29 | XRay Report ---
Lumbar spine-3 views INDICATION: low back pain. COMPARISON: None. IMPRESSION: Levoscoliosis centered at L4 adnexal scoliosis centered at T11. Normal AP alignment. Mi ld multilevel discogenic DJD and lower lumbar facet arthropathy. No acute osseous or soft tissue abn ormality. Signer Name: Kristian Solis MD Signed: 11/21/2018 8:24 PM Workstation Name: [id number]
--- NOTE | 2018-11-21 22:31 | Emergency Department Report ---
HPI - General Chief Complaint: Skin Rash Time Seen by Provider: 11/21/18 19:08 - HPI HPI: This is a 58-year-old female here reported that she is having lower back pain and facial rash. She said she has had facial rash 3 days and lower back pain 3 days. Denies any fever or chills. Denies any abdominal pain. Denies any nausea or vomiting. Denies any sore throat, difficulty swallowing or eating, swelling of tongue neck or difficulty breathing. She said rash the face is dry with some scaling and itchy and she cannot recall anything new in her environment. Patient is also reported that she recently had heart valve surgery and she is on Coumadin but denies any bleeding anywhere. She said her back has hurt before and that she might have scoliosis. She is not having any urinary burning, frequency or urgency. Denies any facial pain. Pain to lower back is 9/10 and achy. Pain is worse with movement better at rest. Patient is a history of COPD and she is on home O2. No medication taken prior to coming to the emergency room. Pain is alleviated by rest and exacerbated by movement ED Past Medical Hx - Past Medical History Previous Medical History?: Yes Hx Hypertension: No Hx CVA: No Hx Heart Attack/AMI: No Hx Congestive Heart Failure: Yes Hx Diabetes: No Hx Deep Vein Thrombosis: No Hx Pulmonary Embolism: No Hx GERD: Yes Hx Liver Disease: No Hx Renal Disease: No Hx Sickle Cell Disease: No Hx Arthritis: No Hx Headaches / Migraines: No Hx Seizures: No Hx Kidney Stones: No Hx Psychiatric Treatment: No Hx Asthma: Yes Hx COPD: Yes (O2-2lpm continuously) Hx Tuberculosis: No Hx Dementia: No Hx HIV: No Additional medical history: gall stones, fibroids, MVP, myomectomy - Surgical History Past Surgical History?: Yes Hx Coronary Stent: No Hx Open Heart Surgery: Yes Hx Pacemaker: No Hx Internal Defibrillator: No Hx Cholecystectomy: No Hx Appendectomy: No Hx Breast Surgery: No Additional Surgical History: fibroid removal - Family History Family history: diabetes, hypertension - Social History Smoking Status: Former Smoker Substance Use Type: Prescribed - Medications Home Medications: Home Medications Medication Instructions Recorded Confirmed Last Taken Type Furosemide [Lasix TAB] 40 mg PO QDAY 04/25/18 10/14/18 10/07/18 History Potassium Chloride [K-Dur] 20 meq PO QDAY 04/25/18 10/14/18 10/07/18 History Acetaminophen [Acetaminophen ER] 650 mg PO PRN PRN 10/14/18 10/14/18 10/03/18 History Amiodarone [Cordarone 200 MG TAB] 200 mg PO BID 10/14/18 10/14/18 10/07/18 History Arformoterol Nebu [Brovana Nebu] 15 mcg IH BID 10/14/18 10/14/18 10/07/18 History Aspirin EC 81 mg PO DAILY 10/14/18 10/14/18 10/07/18 History Atorvastatin [Lipitor] 80 mg PO QHS 10/14/18 10/14/18 10/06/18 History Cetirizine HCl [Cetirizine 10mg 10 mg PO DAILY 10/14/18 10/14/18 10/07/18 History chew] Escitalopram Oxalate [Lexapro] 5 mg PO DAILY 10/14/18 10/14/18 10/07/18 History Fluticasone/Salmeterol [Advair 1 puff PO BID PRN 10/14/18 10/14/18 10/06/18 History Diskus 250-50 mcg] HYDROcodone/APAP 5-325 [[place] 1 tab PO PRN PRN 10/14/18 10/14/18 10/03/18 History 5-325 mg TAB] Pantoprazole [Protonix TAB] 40 mg PO DAILY 10/14/18 10/14/18 10/07/18 History Proventil Hfa 2 puff INHALATION Q4H PRN 10/14/18 10/14/18 10/07/18 History Sennosides Tab [Senokot] 1 tab PO BID PRN 10/14/18 10/14/18 10/06/18 History Simethicone [Anti-Gas] 160 mg PO TID 10/14/18 10/14/18 10/07/18 History Warfarin [Coumadin] 1 mg PO DAILY 10/14/18 10/14/18 10/07/18 History Acetaminophen [Acetaminophen ER] 650 mg PO QID PRN #30 tablet.er 10/22/18 Unknown Rx Acetaminophen [Acetaminophen TAB] 500 mg PO Q8H PRN #12 tablet 11/21/18 Unknown Rx predniSONE [Deltasone] 20 mg PO QDAY 3 Days #3 tab 11/21/18 Unknown Rx ED Review of Systems ROS: Stated complaint: LOWER BACK PAIN/FACIAL RASH Other details as noted in HPI Constitutional: denies: chills, fever ENT: denies: ear pain, throat pain, congestion Respiratory: denies: cough, shortness of breath, SOB with exertion, SOB at rest, stridor, wheezing Cardiovascular: denies: chest pain, palpitations, dyspnea on exertion, edema, syncope, paroxysmal nocturnal dyspnea Gastrointestinal: denies: abdominal pain, nausea, vomiting Genitourinary: denies: urgency, dysuria, frequency, hematuria, discharge, abnormal menses, dyspareunia Musculoskeletal: back pain. denies: joint swelling, arthralgia, myalgia Skin: rash, pruritus Neurological: denies: headache, weakness, confusion, abnormal gait, vertigo Physical Exam - Physical Exam Vital Signs: Vital Signs 11/21/18 19:10 Temperature 98.3 F Pulse Rate 69 Respiratory 18 Rate Blood Pressure 118/40 O2 Sat by Pulse 97 Oximetry General: This is a 58-year-old female well-nourished well-developed in no acute distress. Physical Exam: Head: Normocephalic atraumatic. 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 No use of accessory muscles. Neck: Supple, no tracheal deviation. No C-spine tenderness and full range of motion. Negative stridor and negative crepitus CV: S1, S2. Regular rate Abdomen: Nontender to palpate in all quadrants, normal bowel sounds in all quadrants. No distention. Eyes: Bilateral pupils equal and reactive to light, conjunctival injection or icterus. Bilateral EOM intact and normal accommodation. Lids are normal. No swelling noted. Face: Exam except for rash. No bony abnormality noted Skin: Patient with areas 2 face bilaterally with dry scaly, no erythema or swelling noted. No drainage or indurated area. Extremity: No cce. + 2 pulses in all extremities, no neurovascular compromise. Mood: Normal mood and behavior Neurological: No focal neurological deficit. She is able to ambulate without any difficulties. Normal gait, speech is clear fluid, she is alert and oriented 3, no motor or sensory deficits. Normal strength all extremities and normal reflexes. Negative Romberg and negative pronator drift Back: Nontender to palpate to vertebral spine from C-spine to L-spine including sacral area. No paraspinal tenderness and no CVA tenderness. No rash noted. ED Course Vital Signs 11/21/18 19:10 Temperature 98.3 F Pulse Rate 69 Respiratory 18 Rate Blood Pressure 118/40 O2 Sat by Pulse 97 Oximetry - Reevaluation(s) Reevaluation #1: 11/21/18 23:15 This was given Decadron 10 mg IM in emergency room to cover rash and back pain and Tylenol 975 mg by mouth for pain. Her pain is better. ED Medical Decision Making - Radiology Data Radiology results: report reviewed Patient had x-ray 3 view lumbar spine which shows multilevel disc disease with scoliosis. This was treated by radiologist and report reviewed by myself. Findings [facility] [address] [place] [address] XRay Report Signed Patient: KAYLEE RAMEY MR#: [id number] 97 : 1960 Acct:[id number] Age/Sex: 58 / F ADM Date: 11/21/18 Loc: ED Attending Dr: Ordering Physician: CHAY DOYLE Date of Service: 11/21/18 Procedure(s): XR spine lumbosacral 2-3V Accession Number(s): [id number] cc: CHAY DOYLE Fluoro Time In Minutes: Lumbar spine-3 views INDICATION: low back pain. COMPARISON: None. IMPRESSION: Levoscoliosis centered at L4 adnexal scoliosis centered at T11. Normal AP alignment. Mild multilevel discogenic DJD and lower lumbar facet arthropathy. No acute osseous or soft tissue abnormality. Signer Name: Kristian Solis MD Signed: 11/21/2018 8:24 PM Workstation Name: [id number] Transcribed By: JEANNIE Dictated By: Kristian Solis MD Electronically Authenticated By: Kristian Solis MD Signed Date/Time: 11/21/182023 DD/ 23 TD/TT: - Medical Decision Making This is a 58-year-old female here reports that she has had facial rash and also having issues with low back pain which she has had in the past. X-ray of lumbar spine shows multi-level degenerative disc disease with scoliosis, urinalysis negative. Patient was given Decadron 10 mg IM and Tylenol 975 mg. Patient with degenerative arthritis of lumbar spine with acute on chronic back pain and contact dermatitis to face. I discussed her x-ray results, urinalysis results, treatment plan and diagnosis and she voiced understanding. Pain is controlled and discharged home in stable condition. Critical care attestation.: If time is entered above; I have spent that time in minutes in the direct care of this critically ill patient, excluding procedure time. ED Disposition Clinical Impression: Acute exacerbation of chronic low back pain Contact dermatitis Qualifiers: Contact dermatitis type: unspecified Contact dermatitis trigger: unspecified trigger Qualified Code(s): L25.9 - Unspecified contact dermatitis, unspecified cause Disposition: - TO HOME OR SELFCARE Is pt being admited?: No Does the pt Need Aspirin: No Condition: Stable Instructions: Back Pain (ED), Contact Dermatitis (ED) Additional Instructions: Please call your primary care and other specialists to include a heart doctor to let them know that you were in hospital and treated for back pain and skin rash. 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
[2018-11-21] MEDS ORDERED: DECADRON IM STA (22:37)
[2018-11-21] MEDS ORDERED: TYLENOL PO ONE (22:37)
[2018-11-22 01:53] VITALS: BP 122/50
== END 2018-11-22 00:25 | disposition home or self-care (01) ==
LOC: ED 18:46
DX: L25.9 Unspecified contact dermatitis, unspecified cause (principal); M54.5 Low back pain; G89.29 Other chronic pain; I50.9 Heart failure, unspecified; K21.9 Gastro-esophageal reflux disease without esophagitis; J44.9 Chronic obstructive pulmonary disease, unspecified; Z98.890 Other specified postprocedural states; Z87.891 Personal history of nicotine dependence; Z79.899 Other long term (current) drug therapy; Z88.6 Allergy status to analgesic agent; Z91.041 Radiographic dye allergy status
CPT/HCPCS: 72100; 81001; 96372; 99284; J1100

== ENCOUNTER 2018-12-09 19:40 | Emergency (ER) | payer MEDICARE ==
[2018-12-09 20:25] VITALS: BP 124/52
--- NOTE | 2018-12-09 20:31 | Event Note ---
ED Screening Note ED Screening Note: This initial assessment/diagnostic orders/clinical plan/treatment(s) is/are subject to change based on patients health status, clinical progression and re- assessment by fellow clinical providers in the ED. Further treatment and workup at subsequent clinical providers discretion. Patient/guardian urged not to elope from the ED as their condition may be serious if not clinically assessed and managed. Initial orders include: 58 yo BF with R hand swelling. She states that the swelling occurred while she was cooking.
[2018-12-09 20:49] LABS: Basophils # (Auto) 0.1 K/mm3 (0.0-0.1); Basophils % (Auto) 1.1 % (0.0-1.8); Eosinophils # (Auto) 0.3 K/mm3 (0.0-0.4); Hematocrit 37.5 % (30.3-42.9); Hemoglobin 12.7 gm/dl (10.1-14.3); Lymphocytes # (Auto) 2.4 K/mm3 (1.2-5.4); Lymphocytes % (Auto) 23.6 % (13.4-35.0); Mean Corpuscular HGB Conc 34 % (30-34); Mean Corpuscular Volume 85 fl (79-97); Monocytes # (Auto) 0.9 K/mm3 (0.0-0.8); Monocytes % (Auto) 8.5 % (0.0-7.3); Platelet Count 348 K/mm3 (140-440); Red Cell Distribution Width 16.7 % (13.2-15.2)
--- NOTE | 2018-12-09 21:47 | Emergency Department Report ---
ED General Adult HPI - General Chief complaint: Extremity Problem,Nontraumatic Stated complaint: RIGHT HAND PAIN AND SWELLING Time Seen by Provider: 12/09/18 21:25 Source: patient Mode of arrival: Ambulatory Limitations: No Limitations - History of Present Illness Initial comments: Patient is a 58-year-old female that presents emergency room with complaints of right hand pain and swelling and itching. Patient states that after she finished cooking dinner she was cleaning the kitchen and began having pain and itching on her right hand dorsal side in between the first and second digit. Patient states she has a little bit of redness. He denies fever and chills. Patient states the pain and itching are worsening. Patient states her symptoms started at 3 PM this afternoon. Patient states the pain is a 4 out of 10. Patient denies trauma or injury. Patient denies burning her hand. Patient does not recall a chemical touching her skin. -: Sudden Location: upper extremity Radiation: non-radiation Severity scale (0 -10): 4 Quality: aching Consistency: constant Improves with: rest Worsens with: movement Associated Symptoms: denies other symptoms. denies: confusion, chest pain, cough, diaphoresis, fever/chills, headaches, loss of appetite, malaise, nausea/vomiting, rash, seizure, shortness of breath, syncope, weakness Treatments Prior to Arrival: none - Related Data Home Medications Medication Instructions Recorded Confirmed Last Taken Furosemide [Lasix TAB] 40 mg PO QDAY 04/25/18 10/14/18 10/07/18 Potassium Chloride [K-Dur] 20 meq PO QDAY 04/25/18 10/14/18 10/07/18 Acetaminophen [Acetaminophen ER] 650 mg PO PRN PRN 10/14/18 10/14/18 10/03/18 Amiodarone [Cordarone 200 MG TAB] 200 mg PO BID 10/14/18 10/14/18 10/07/18 Arformoterol Nebu [Brovana Nebu] 15 mcg IH BID 10/14/18 10/14/18 10/07/18 Aspirin EC 81 mg PO DAILY 10/14/18 10/14/18 10/07/18 Atorvastatin [Lipitor] 80 mg PO QHS 10/14/18 10/14/18 10/06/18 Cetirizine HCl [Cetirizine 10mg 10 mg PO DAILY 10/14/18 10/14/18 10/07/18 chew] Escitalopram Oxalate [Lexapro] 5 mg PO DAILY 10/14/18 10/14/18 10/07/18 Fluticasone/Salmeterol [Advair 1 puff PO BID PRN 10/14/18 10/14/18 10/06/18 Diskus 250-50 mcg] HYDROcodone/APAP 5-325 [[place] 1 tab PO PRN PRN 10/14/18 10/14/18 10/03/18 5-325 mg TAB] Pantoprazole [Protonix TAB] 40 mg PO DAILY 10/14/18 10/14/18 10/07/18 Proventil Hfa 2 puff INHALATION Q4H PRN 10/14/18 10/14/18 10/07/18 Sennosides Tab [Senokot] 1 tab PO BID PRN 10/14/18 10/14/18 10/06/18 Simethicone [Anti-Gas] 160 mg PO TID 10/14/18 10/14/18 10/07/18 Warfarin [Coumadin] 1 mg PO DAILY 10/14/18 10/14/18 10/07/18 Previous Rx's Medication Instructions Recorded Last Taken Type Acetaminophen [Acetaminophen ER] 650 mg PO QID PRN #30 tablet.er 10/22/18 Unknown Rx Acetaminophen [Acetaminophen TAB] 500 mg PO Q8H PRN #12 tablet 11/21/18 Unknown Rx predniSONE [Deltasone] 20 mg PO QDAY 3 Days #3 tab 11/21/18 Unknown Rx Doxycycline Hyclate [Doxycycline 100 mg PO Q12HR 10 Days #20 tab 12/09/18 Unkno wn Rx Hyclate TAB] methylPREDNISolone [Medrol 4MG 4 mg PO DAILY 6 Days #1 tab.ds.pk 12/09/18 Unknown Rx DOSEPAK (21 tabs)] Allergies Allergy/AdvReac Type Severity Reaction Status Date / Time Iodinated Contrast Media Allergy Swelling Verified 09/06/18 20:54 morphine Allergy Rash Verified 10/14/18 06:45 ED Review of Systems ROS: Stated complaint: RIGHT HAND PAIN AND SWELLING Other details as noted in HPI Constitutional: denies: chills, fever Eyes: denies: eye pain, eye discharge, vision change ENT: denies: ear pain, throat pain Respiratory: denies: cough, shortness of breath, wheezing Cardiovascular: denies: chest pain, palpitations Endocrine: no symptoms reported Gastrointestinal: denies: abdominal pain, nausea, diarrhea Genitourinary: denies: urgency, dysuria, discharge Musculoskeletal: denies: back pain, joint swelling, arthralgia Skin: denies: rash, lesions Neurological: denies: headache, weakness, paresthesias Psychiatric: denies: anxiety, depression Hematological/Lymphatic: denies: easy bleeding, easy bruising ED Past Medical Hx - Past Medical History Previous Medical History?: Yes Hx Hypertension: No Hx CVA: No Hx Heart Attack/AMI: No Hx Congestive Heart Failure: Yes Hx Diabetes: No Hx Deep Vein Thrombosis: No Hx Pulmonary Embolism: No Hx GERD: Yes Hx Liver Disease: No Hx Renal Disease: No Hx Sickle Cell Disease: No Hx Arthritis: No Hx Headaches / Migraines: No Hx Seizures: No Hx Kidney Stones: No Hx Psychiatric Treatment: No Hx Asthma: Yes Hx COPD: Yes (O2-2lpm continuously) Hx Tuberculosis: No Hx Dementia: No Hx HIV: No Additional medical history: gall stones, fibroids, MVP, myomectomy - Surgical History Past Surgical History?: Yes Hx Coronary Stent: No Hx Open Heart Surgery: Yes Hx Pacemaker: No Hx Internal Defibrillator: No Hx Cholecystectomy: No Hx Appendectomy: No Hx Breast Surgery: No Additional Surgical History: fibroid removal - Family History Family history: no significant - Social History Smoking Status: Current Every Day Smoker Substance Use Type: None - Medications Home Medications: Home Medications Medication Instructions Recorded Confirmed Last Taken Type Furosemide [Lasix TAB] 40 mg PO QDAY 04/25/18 10/14/18 10/07/18 History Potassium Chloride [K-Dur] 20 meq PO QDAY 04/25/18 10/14/18 10/07/18 History Acetaminophen [Acetaminophen ER] 650 mg PO PRN PRN 10/14/18 10/14/18 10/03/18 History Amiodarone [Cordarone 200 MG TAB] 200 mg PO BID 10/14/18 10/14/18 10/07/18 History Arformoterol Nebu [Brovana Nebu] 15 mcg IH BID 10/14/18 10/14/18 10/07/18 History Aspirin EC 81 mg PO DAILY 10/14/18 10/14/1810/07/19 History Atorvastatin [Lipitor] 80 mg PO QHS 10/14/18 10/14/18 10/06/18 History Cetirizine HCl [Cetirizine 10mg 10 mg PO DAILY 10/14/18 10/14/18 10/07/18 History chew] Escitalopram Oxalate [Lexapro] 5 mg PO DAILY 10/14/18 10/14/18 10/07/18 History Fluticasone/Salmeterol [Advair 1 puff PO BID PRN 10/14/18 10/14/18 10/06/18 History Diskus 250-50 mcg] HYDROcodone/APAP 5-325 [[place] 1 tab PO PRN PRN 10/14/18 10/14/18 10/03/18 History 5-325 mg TAB] Pantoprazole [Protonix TAB] 40 mg PO DAILY 10/14/18 10/14/18 10/07/18 History Proventil Hfa 2 puff INHALATION Q4H PRN 10/14/18 10/14/18 10/07/18 History Sennosides Tab [Senokot] 1 tab PO BID PRN 10/14/18 10/14/18 10/06/18 History Simethicone [Anti-Gas] 160 mg PO TID 10/14/18 10/14/18 10/07/18 History Warfarin [Coumadin] 1 mg PO DAILY 10/14/18 10/14/18 10/07/18 History Acetaminophen [Acetaminophen ER] 650 mg PO QID PRN #30 tablet.er 10/22/18 Unknown Rx Acetaminophen [Acetaminophen TAB] 500 mg PO Q8H PRN #12 tablet 11/21/18 Unknown Rx predniSONE [Deltasone] 20 mg PO QDAY 3 Days #3 tab 11/21/18 Unknown Rx Doxycycline Hyclate [Doxycycline 100 mg PO Q12HR 10 Days #20 tab 12/09/18 Unknown Rx Hyclate TAB] methylPREDNISolone [Medrol 4MG 4 mg PO DAILY 6 Days #1 tab.ds.pk 12/09/18 Unknown Rx DOSEPAK (21 tabs)] ED Physical Exam - General Limitations: No Limitations General appearance: alert, in no apparent distress - Head Head exam: Present: atraumatic, normocephalic - Eye Eye exam: Present: normal appearance - ENT ENT exam: Present: mucous membranes moist - Neck Neck exam: Present: normal inspection - Respiratory Respiratory exam: Present: normal lung sounds bilaterally. Absent: respiratory distress - Cardiovascular Cardiovascular Exam: Present: regular rate, normal rhythm. Absent: systolic murmur, diastolic murmur, rubs, gallop - GI/Abdominal GI/Abdominal exam: Present: soft, normal bowel sounds - Extremities Exam Extremities exam: Present: normal inspection - Back Exam Back exam: Present: normal inspection - Neurological Exam Neurological exam: Present: alert, oriented X3 - Psychiatric Psychiatric exam: Present: normal affect, normal mood - Skin Skin exam: Present: warm, dry, normal color, erythema (right dorsal hand, consistent with cellulitis and allergic reaction. No skin breakdown noted. No streaking noted). Absent: rash ED Course Vital Signs 12/09/18 20:23 Temperature 98.6 F Pulse Rate 74 Respiratory 18 Rate Blood Pressure 124/52 O2 Sat by Pulse 98 Oximetry - Reevaluation(s) Reevaluation #1: I discussed clinical findings with patient. I discussed plan of care with patient. Patient agrees with plan of care. Patient is stable for discharge. Patient will be discharged home. Patient given discharge instructions. Patient voiced understanding of discharge instructions 12/09/18 21:46 ED Medical Decision Making - Lab Data Result diagrams: 12/09/18 20:30 - Medical Decision Making She is a 58-year-old female that presents for right hand pain and itching and swelling. Patient's finding consistent with cellulitis and a allergic reaction. Patient given steroids/antibiotics. Patient's CBC is negative. Patient stable for discharge. Patient be discharged home. Patient is on Coumadin and will require quick follow-up for INR recheck. - Differential Diagnosis allergic reaction. Contact dermatitis. Cellulitis. Critical care attestation.: If time is entered above; I have spent that time in minutes in the direct care of this critically ill patient, excluding procedure time. ED Disposition Clinical Impression: Right hand pain Cellulitis Qualifiers: Site of cellulitis: unspecified site Qualified Code(s): L03.90 - Cellulitis, unspecified Contact dermatitis Qualifiers: Contact dermatitis type: unspecified Contact dermatitis trigger: unspecified trigger Qualified Code(s): L25.9 - Unspecified contact dermatitis, unspecified cause Disposition: TO HOME OR SELFCARE Is pt being admited?: No Does the pt Need Aspirin: No Condition: Stable Instructions: Cellulitis (ED), Contact Dermatitis (ED) Additional Instructions: Patient to follow-up with primary care in 2 days. Patient to return to ER if condition worsens. Patient to rest. Patient to increase water. Patient to take meds as directed. Patient's take Tylenol when necessary for pain. Prescriptions: Doxycycline Hyclate [Doxycycline Hyclate TAB] 100 mg PO Q12HR 10 Days #20 tab methylPREDNISolone [Medrol 4MG DOSEPAK (21 tabs)] 4 mg PO DAILY 6 Days #1 tab.ds.pk Referrals: PRIMARY CARE, [Primary Care Provider] - [facility] Time of Disposition: 21:48
== END 2018-12-09 22:02 | disposition home or self-care (01) ==
LOC: ED 19:40
DX: L25.9 Unspecified contact dermatitis, unspecified cause (principal); L03.90 Cellulitis, unspecified; M79.641 Pain in right hand; I50.9 Heart failure, unspecified; K21.9 Gastro-esophageal reflux disease without esophagitis; J44.9 Chronic obstructive pulmonary disease, unspecified; F17.200 Nicotine dependence, unspecified, uncomplicated; Z98.890 Other specified postprocedural states; Z79.899 Other long term (current) drug therapy; Z88.6 Allergy status to analgesic agent; Z91.041 Radiographic dye allergy status
CPT/HCPCS: 36415; 85025

== ENCOUNTER 2018-12-26 13:41 | Emergency (ER) | payer MEDICARE ==
[2018-12-26] MEDS ORDERED: ASPIRIN PO ONE (13:57)
--- NOTE | 2018-12-26 14:00 | Event Note ---
ED Screening Note Date of service: 12/26/18 Time: 13:55 ED Screening Note: This is a 58 y.o. F. that presents to the ER with left sided chest pain for months that is worsening for 2 days. This initial assessment/diagnostic orders/clinical plan/treatment(s) is/are subject to change based on patients health status, clinical progression and re- assessment by fellow clinical providers in the ED. Further treatment and workup at subsequent clinical providers discretion. Patient/guardian urged not to elope from the ED as their condition may be serious if not clinically assessed and managed. Initial orders include: Labs, EKG, & CXR
--- NOTE | 2018-12-26 14:45 | XRay Report ---
CHEST 2 VIEWS INDICATION / CLINICAL INFORMATION: Chest Pain. COMPARISON: 06/09/2018 FINDINGS: SUPPORT DEVICES: None. HEART / MEDIASTINUM: Normal size with evidence of valve replacements. LUNGS / PLEURA: No significant pulmonary or pleural abnormality. No pneumothorax. ADDITIONAL FINDINGS: No significant additional findings. IMPRESSION: 1. No acute findings. Signer Name: Howie Menjivar MD Signed: 12/26/2018 2:40 PM Workstation Name: [id number]
[2018-12-26 14:59] LABS: Basophils # (Auto) 0.1 K/mm3 (0.0-0.1); Basophils % (Auto) 1.2 % (0.0-1.8); Eosinophils # (Auto) 0.4 K/mm3 (0.0-0.4); Eosinophils % (Auto) 4.5 % (0.0-4.3); Hematocrit 39.3 % (30.3-42.9); Hemoglobin 13.3 gm/dl (10.1-14.3); Lymphocytes # (Auto) 1.6 K/mm3 (1.2-5.4); Lymphocytes % (Auto) 20.8 % (13.4-35.0); Mean Corpuscular HGB Conc 34 % (30-34); Mean Corpuscular Volume 84 fl (79-97); Monocytes # (Auto) 0.8 K/mm3 (0.0-0.8); Monocytes % (Auto) 9.7 % (0.0-7.3); Platelet Count 322 K/mm3 (140-440); Red Blood Count 4.66 M/mm3 (3.65-5.03); Red Cell Distribution Width 16.5 % (13.2-15.2)
--- NOTE | 2018-12-26 15:09 | Emergency Department Report ---
ED General Adult HPI - General Chief complaint: Chest Pain Stated complaint: HEAD/CHEST CONGESTION/ Time Seen by Provider: 12/26/18 13:55 Source: patient Mode of arrival: Ambulatory Limitations: No Limitations - History of Present Illness Initial comments: Patient is a 58-year-old female with a past medical history of COPD who is onto his of oxygen at home as well as congestive heart failure GERD and hypertension who is presenting with chest discomfort. Patient states that for the past 2 days she's had pain with cough. Patient states cough is productive of brownish sputum. She states she does have some increased shortness of breath. Patient states there is been no subjective or objective fevers. Patient states that the chest discomfort is not exertional. Patient also feels that she has some head congestion and sinus congestion as well. Patient denies nausea vomiting diarrhea sore throat or neck stiffness. - Related Data Home Medications Medication Instructions Recorded Confirmed Last Taken Furosemide [Lasix TAB] 40 mg PO QDAY 04/25/18 10/14/18 10/07/18 Potassium Chloride [K-Dur] 20 meq PO QDAY 04/25/18 10/14/18 10/07/18 Acetaminophen [Acetaminophen ER] 650 mg PO PRN PRN 10/14/18 10/14/18 10/03/18 Amiodarone [Cordarone 200 MG TAB] 200 mg PO BID 10/14/18 10/14/18 10/07/18 Arformoterol Nebu [Brovana Nebu] 15 mcg IH BID 10/14/18 10/14/18 10/07/18 Aspirin EC 81 mg PO DAILY 10/14/18 10/14/18 10/07/18 Atorvastatin [Lipitor] 80 mg PO QHS 10/14/18 10/14/18 10/06/18 Cetirizine HCl [Cetirizine 10mg 10 mg PO DAILY 10/14/18 10/14/18 10/07/18 chew] Escitalopram Oxalate [Lexapro] 5 mg PO DAILY 10/14/18 10/14/18 10/07/18 Fluticasone/Salmeterol [Advair 1 puff PO BID PRN 10/14/18 10/14/18 10/06/18 Diskus 250-50 mcg] HYDROcodone/APAP 5-325 [[place] 1 tab PO PRN PRN 10/14/18 10/14/18 10/03/18 5-325 mg TAB] Pantoprazole [Protonix TAB] 40 mg PO DAILY 10/14/18 10/14/18 10/07/18 Proventil Hfa 2 puff INHALATION Q4H PRN 10/14/18 10/14/18 10/07/18 Sennosides Tab [Senokot] 1 tab PO BID PRN 10/14/18 10/14/18 10/06/18 Simethicone [Anti-Gas] 160 mg PO TID 10/14/18 10/14/18 10/07/18 Warfarin [Coumadin] 1 mg PO DAILY 10/14/18 10/14/18 10/07/18 Previous Rx's Medication Instructions Recorded Last Taken Type Acetaminophen [Acetaminophen ER] 650 mg PO QID PRN #30 tablet.er 10/22/18 Unknown Rx Acetaminophen [Acetaminophen TAB] 500 mg PO Q8H PRN #12 tablet 11/21/18 Unknown Rx predniSONE [Deltasone] 20 mg PO QDAY 3 Days #3 tab 11/21/18 Unknown Rx Doxycycline Hyclate [Doxycycline 100 mg PO Q12HR 10 Days #20 tab 12/09/18 Unknown Rx Hyclate TAB] methylPREDNISolone [Medrol 4MG 4 mg PO DAILY 6 Days #1 tab.ds.pk 12/09/18 Unknown Rx DOSEPAK (21 tabs)] Azithromycin [Zithromax Z-RENETTA] 250 mg PO DAILY #6 tablet 12/26/18 Unknown Rx Benzonatate [Tessalon Perles] 100 mg PO Q8HR #10 capsule 12/26/18 Unknown Rx Fluticasone [Flonase] 1 spray NS QDAY #1 bottle 12/26/18 Unknown Rx predniSONE [Deltasone] 20 mg PO QDAY #5 tab 12/26/18 Unknown Rx Allergies Allergy/AdvReac Type Severity Reaction Status Date / Time Iodinated Contrast Media Allergy Swelling Verified 09/06/18 20:54 morphine Allergy Rash Verified 10/14/18 06:45 ED Review of Systems ROS: Stated complaint: HEAD/CHEST CONGESTION/ Other details as noted in HPI Comment: All other systems reviewed and negative ED Past Medical Hx - Past Medical History Hx Hypertension: No Hx CVA: No Hx Heart Attack/AMI: No Hx Congestive Heart Failure: Yes Hx Diabetes: No Hx Deep Vein Thrombosis: No Hx Pulmonary Embolism: No Hx GERD: Yes Hx Liver Disease: No Hx Renal Disease: No Hx Sickle Cell Disease: No Hx Arthritis: No Hx Headaches / Migraines: No Hx Seizures: No Hx Kidney Stones: No Hx Psychiatric Treatment: No Hx Asthma: Yes Hx COPD: Yes (O2-2lpm continuously) Hx Tuberculosis: No Hx Dementia: No Hx HIV: No Additional medical history: gall stones, fibroids, MVP, myomectomy - Surgical History Hx Coronary Stent: No Hx Open Heart Surgery: Yes Hx Pacemaker: No Hx Internal Defibrillator: No Hx Cholecystectomy: No Hx Appendectomy: No Hx Breast Surgery: No Additional Surgical History: fibroid removal - Social History Smoking Status: Former Smoker Substance Use Type: None - Medications Home Medications: Home Medications Medication Instructions Recorded Confirmed Last Taken Type Furosemide [Lasix TAB] 40 mg PO QDAY 04/25/18 10/14/18 10/07/18 History Potassium Chloride [K-Dur] 20 meq PO QDAY 04/25/18 10/14/18 10/07/18 History Acetaminophen [Acetaminophen ER] 650 mg PO PRN PRN 10/14/18 10/14/18 10/03/18 History Amiodarone [Cordarone 200 MG TAB] 200 mg PO BID 10/14/18 10/14/18 10/07/18 History Arformoterol Nebu [Brovana Nebu] 15 mcg IH BID 10/14/18 10/14/18 10/07/18 History Aspirin EC 81 mg PO DAILY 10/14/18 10/14/18 10/07/18 History Atorvastatin [Lipitor] 80 mg PO QHS 10/14/18 10/14/18 10/06/18 History Cetirizine HCl [Cetirizine 10mg 10 mg PO DAILY 10/14/18 10/14/18 10/07/18 History chew] Escitalopram Oxalate [Lexapro] 5 mg PO DAILY 10/14/18 10/14/18 10/07/18 History Fluticasone/Salmeterol [Advair 1 puff PO BID PRN 10/14/18 10/14/18 10/06/18 History Diskus 250-50 mcg] HYDROcodone/APAP 5-325 [[place] 1 tab PO PRN PRN 10/14/18 10/14/18 10/03/18 History 5-325 mg TAB] Pantoprazole [Protonix TAB] 40 mg PO DAILY 10/14/18 10/14/18 10/07/18 History Proventil Hfa 2 puff INHALATION Q4H PRN 10/14/18 10/14/18 10/07/18 History Sennosides Tab [Senokot] 1 tab PO BID PRN 10/14/18 10/14/18 10/06/18 History Simethicone [Anti-Gas] 160 mg PO TID 10/14/18 10/14/18 10/07/18 History Warfarin [Coumadin] 1 mg PO DAILY 10/14/18 10/14/18 10/07/18 History Acetaminophen [Acetaminophen ER] 650 mg PO QID PRN #30 tablet.er 10/22/18 Unknown Rx Acetaminophen [Acetaminophen TAB] 500 mg PO Q8H PRN #12 tablet 11/21/18 Unknown Rx predniSONE [Deltasone] 20 mg PO QDAY 3 Days #3 tab 11/21/18 Unknown Rx Doxycycline Hyclate [Doxycycline 100 mg PO Q12HR 10 Days #20 tab 12/09/18 Unknown Rx Hyclate TAB] methylPREDNISolone [Medrol 4MG 4 mg PO DAILY 6 Days #1 tab.ds.pk 12/09/18 Unknown Rx DOSEPAK (21 tabs)] Azithromycin [Zithromax Z-RENETTA] 250 mg PO DAILY #6 tablet 12/26/18 Unknown Rx Benzonatate [Tessalon Perles] 100 mg PO Q8HR #10 capsule 12/26/18 Unknown Rx Fluticasone [Flonase] 1 spray NS QDAY #1 bottle 12/26/18 Unknown Rx predniSONE [Deltasone] 20 mg PO QDAY #5 tab 12/26/18 Unknown Rx ED Physical Exam - General Limitations: No Limitations General appearance: alert, in no apparent distress - Head Head exam: Present: atraumatic, normocephalic - Eye Eye exam: Present: normal appearance - ENT ENT exam: Present: mucous membranes moist - Neck Neck exam: Present: normal inspection - Respiratory Respiratory exam: Present: normal lung sounds bilaterally, rhonchi. Absent: respiratory distress, wheezes, rales - Cardiovascular Cardiovascular Exam: Present: regular rate, normal rhythm, normal heart sounds. Absent: systolic murmur, diastolic murmur, rubs, gallop - GI/Abdominal GI/Abdominal exam: Present: soft, normal bowel sounds. Absent: distended, tenderness, guarding, rebound - Extremities Exam Extremities exam: Present: normal inspection - Back Exam Back exam: Present: normal inspection - Neurological Exam Neurological exam: Present: alert, oriented X3 - Psychiatric Psychiatric exam: Present: normal affect, normal mood - Skin Skin exam: Present: warm, dry, intact, normal color. Absent: rash ED Course Vital Signs 12/26/18 12/26/18 13:56 14:53 Temperature 97.9 F Pulse Rate 79 Respiratory 18 18 Rate Blood Pressure 144/75 O2 Sat by Pulse 96 100 Oximetry ED Medical Decision Making - Lab Data Result diagrams: 12/26/18 14:45 12/26/18 14:48 Lab Results 12/26/18 12/26/18 12/26/18 Range/Units 14:45 14:48 14:49 WBC 7.7 (4.5-11.0) K/mm3 RBC 4.66 (3.65-5.03) M/mm3 Hgb 13.3 (10.1-14.3) gm/dl Hct 39.3 (30.3-42.9) % MCV 84 (79-97) fl MCH 28 (28-32) pg MCHC 34 (30-34) % RDW 16.5 H (13.2-15.2) % Plt Count 322 (140-440) K/mm3 Lymph % (Auto) 20.8 (13.4-35.0) % [place] % (Auto) 9.7 H (0.0-7.3) % Eos % (Auto) 4.5 H (0.0-4.3) % Baso % (Auto) 1.2 (0.0-1.8) % Lymph # 1.6 (1.2-5.4) K/mm3 [place] # 0.8 (0.0-0.8) K/mm3 Eos # 0.4 (0.0-0.4) K/mm3 Baso # 0.1 (0.0-0.1) K/mm3 Seg Neutrophils % 63.8 (40.0-70.0) % Seg Neutrophils # 4.9 (1.8-7.7) K/mm3 Sodium 139 (137-145) mmol/L Potassium 4.7 (3.6-5.0) mmol/L Chloride 101.8 (98-107) mmol/L Carbon Dioxide 22 (22-30) mmol/L Anion Gap 20 mmol/L BUN 15 (7-17) mg/dL Creatinine 1.1 (0.7-1.2) mg/dL Estimated GFR > 60 ml/min BUN/Creatinine Ratio 14 % Glucose 106 H (65-100) mg/dL Calcium 9.0 (8.4-10.2) mg/dL NT-Pro-B Natriuret Pep 441.2 (0-900) pg/mL - Radiology Data XRay Report Signed Patient: KAYLEE RAMEY MR#: [id number] [birth year] : 1960 Acct:[id number] Age/Sex: 58 / F ADM Date: 12/26/18 Loc: ED Attending Dr: Ordering Physician: CHAY DOYLE Date of Service: 12/26/18 Procedure(s ): XR chest 1V ap Accession Number(s): [id number] cc: CHAY DOYLE Fluoro Time In Minutes: CHEST 2 VIEWS INDICATION / CLINICAL INFORMATION: Chest Pain. COMPARISON: 06/09/2018 FINDINGS: SUPPORT DEVICES: None. HEART / MEDIASTINUM: Normal size with evidence of valve replacements. LUNGS / PLEURA: No significant pulmonary or pleural abnormality. No pneumothorax. ADDITIONAL FINDINGS: No significant additional findings. IMPRESSION: 1. No acute findings. Signer Name: Howie Menjivar MD Signed: 12/26/2018 2:40 PM Workstation Name: [id number] Transcribed By: Dictated By: Howie Menjivar MD Electronically Authenticated By: Howie Menjivar MD Signed Date/Time: 12/26/18 6006 - Medical Decision Making This is a 58-year-old Gaby female who is presenting with productive cough and chest discomfort. No pneumonia is seen on x-ray and the patient does not appear to be fluid overloaded on interpretation of her x-ray and her BMP is within normal limits. Patient will be discharged home with medications for acute bronchitis. Because the patient has a history of COPD antibiotics will be as well. Critical care attestation.: If time is entered above; I have spent that time in minutes in the direct care of this critically ill patient, excluding procedure time. ED Disposition Clinical Impression: Acute bronchitis Disposition: DC-01 TO HOME OR SELFCARE Is pt being admited?: No Does the pt Need Aspirin: No Condition: Stable Instructions: Acute Bronchitis (ED) Referrals: DIMITRI EPSTEIN MD [Referring] - 3-5 Days Time of Disposition: 16:09
[2018-12-26 15:18] LABS: BUN/Creatinine Ratio 14; Blood Urea Nitrogen 15 mg/dL (7-17); Hemolysis Index 128
[2018-12-26 16:45] VITALS: BP 127/55
== END 2018-12-26 16:47 | disposition home or self-care (01) ==
LOC: ED 13:41
DX: J20.9 Acute bronchitis, unspecified (principal); J44.9 Chronic obstructive pulmonary disease, unspecified; K21.9 Gastro-esophageal reflux disease without esophagitis; I50.9 Heart failure, unspecified; Z79.899 Other long term (current) drug therapy; Z91.041 Radiographic dye allergy status; Z88.5 Allergy status to narcotic agent; Z79.82 Long term (current) use of aspirin; Z87.891 Personal history of nicotine dependence
CPT/HCPCS: 36415; 71045; 80048; 83880; 85025; 93005; 93010; 99284

== ENCOUNTER 2019-01-08 18:29 | Emergency (ER) | payer MEDICARE ==
--- NOTE | 2019-01-08 19:32 | Event Note ---
ED Screening Note Date of service: 01/08/19 Time: 19:28 ED Screening Note: This is a 58 y.o. F. that presents to the ER with a fever and SOB since this afternoon. Patient states she went to her [employer] [place] and symptoms worsened. PMH of COPD, CHF, GERD, and anxiety + cough, SOB, fever - sore throat, n/v/d, or myalgia This initial assessment/diagnostic orders/clinical plan/treatment(s) is/are subject to change based on patients health status, clinical progression and re-assessment by fellow clinical providers in the ED. Further treatment and workup at subsequent clinical providers discretion. Patient/guardian urged not to elope from the ED as their condition may be serious if not clinically assessed and managed. Initial orders include: CXR Rapid flu
[2019-01-08] MEDS ORDERED: SODIUM CHLORIDE 0.9% 1000 ML IV SOLN IV ONE (20:43)
--- NOTE | 2019-01-08 20:47 | XRay Report ---
CHEST 2 VIEWS INDICATION: cough and fever, r/o pneumonia. COMPARISON: 12/26/2018 FINDINGS: Support devices: None. Heart: Stable postoperative changes in the chest with normal heart size. Lungs/pleura: No acute air space or interstitial disease. No pneumothorax. Additional findings: None. IMPRESSION: 1. No acute findings. Signer Name: Kristian Solis MD Signed: 01/08/2019 8:43 PM Workstation Name: [id number]
[2019-01-08] MEDS ORDERED: ACETAMINOPHEN 325 MG TAB PO ONE (21:17)
[2019-01-08] MEDS ORDERED: predniSONE 20 MG TAB PO ONE (21:34)
[2019-01-08] MEDS ORDERED: IPRATROPIUM/ALBUTEROL SULFATE 3 ML AMPUL.NEB IH ONE (21:34)
[2019-01-08 21:46] LABS: INR 2.94 (0.87-1.13)
[2019-01-08 21:47] LABS: Partial Thromboplastin Time 47.9 Sec. (24.2-36.6)
[2019-01-08 21:59] LABS: Basophils % (Auto) 1.1 % (0.0-1.8); Eosinophils % (Auto) 1.8 % (0.0-4.3); Hematocrit 39.6 % (30.3-42.9); Lymphocytes % (Auto) 14.3 % (13.4-35.0); Mean Corpuscular HGB Conc 33 % (30-34); Mean Corpuscular Volume 85 fl (79-97); Monocytes % (Auto) 10.7 % (0.0-7.3); Platelet Count 281 K/mm3 (140-440); Red Blood Count 4.65 M/mm3 (3.65-5.03); Red Cell Distribution Width 16.4 % (13.2-15.2)
[2019-01-08 22:00] LABS: Basophils # (Auto) 0.1 K/mm3 (0.0-0.1); Eosinophils # (Auto) 0.2 K/mm3 (0.0-0.4); Lymphocytes # (Auto) 1.5 K/mm3 (1.2-5.4); Monocytes # (Auto) 1.1 K/mm3 (0.0-0.8)
[2019-01-08 22:01] LABS: Alanine Aminotransferase 169 units/L (7-56); BUN/Creatinine Ratio 9; Blood Urea Nitrogen 9 mg/dL (7-17); Calcium 8.6 mg/dL (8.4-10.2); Hemolysis Index 5
--- NOTE | 2019-01-08 22:16 | Emergency Department Report ---
ED Fever HPI - General Chief Complaint: Dyspnea/Respdistress Stated Complaint: FEVER/SOB Time Seen by Provider: 01/08/19 19:28 Source: patient Exam Limitations: no limitations - History of Present Illness Initial Comments: 58-year-old female with a past medical history asthma, CHF, COPD with O2 dependence, GERD, and valve replacement surgery 05/2018, and continued smoking presents to the hospital complaining of fever times one day. Patient's had a cough 1 month and developed shortness of breath with wheezing yesterday. Cough has been clear, brown, and yellow in color. She has anterior chest wall tenderness since replacement surgery this past May. As per medical record review patient was admitted here in April. She had worsening EF, large pericardial effusion, severe MR, severe TR, and was subsequently transferred to [place] where she had her cardiac surgery. 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 Patient did not receive a flu shot. As per previous medical record review patient presented to the ER 12/26 complain of cough. Patient was treated with acute bronchitis with Prednisone, Flonase, Tessalon Perles, and a Z-Renetta. Patient was also treated here December 09 with Medrol Dosepak and doxycycline for cellulitis. Pt also has had resp with intubation past patient states she does still have azithromycin and prednisone left. She's been taking azithromycinevery other day because of possible interaction with Coumadin ED Review of Systems ROS: Stated complaint: FEVER/SOB Other details as noted in HPI Comment: All other systems reviewed and negative ED Past Medical Hx - Past Medical History Previous Medical History?: Yes Hx Hypertension: No Hx CVA: No Hx Heart Attack/AMI: No Hx Congestive Heart Failure: Yes Hx Diabetes: No Hx Deep Vein Thrombosis: No Hx Pulmonary Embolism: No Hx GERD: Yes Hx Liver Disease: No Hx Renal Disease: No Hx Sickle Cell Disease: No Hx Arthritis: No Hx Headaches / Migraines: No Hx Seizures: No Hx Kidney Stones: No Hx Psychiatric Treatment: No Hx Asthma: Yes Hx COPD: Yes (O2-2lpm continuously) Hx Tuberculosis: No Hx Dementia: No Hx HIV: No Additional medical history: gall stones, fibroids, MVP, myomectomy. A. fib with rvr - Surgical History Past Surgical History?: Yes Hx Coronary Stent: No Hx Open Heart Surgery: Yes (Mitral and Tricuspid valve replacement/surgery (based on cxr) 05/2018) Hx Pacemaker: No Hx Internal Defibrillator: No Hx Cholecystectomy: No Hx Appendectomy: No Hx Breast Surgery: No Additional Surgical History: fibroid removal - Social History Smoking Status: Current Every Day Smoker Substance Use Type: None - Medications Home Medications: Home Medications Medication Instructions Recorded Confirmed Last Taken Type Furosemide [Lasix TAB] 40 mg PO QDAY 04/25/18 10/14/18 10/07/18 History Potassium Chloride [K-Dur] 20 meq PO QDAY 04/25/18 10/14/18 10/07/18 History Acetaminophen [Acetaminophen ER] 650 mg PO PRN PRN 10/14/18 10/14/18 10/03/18 History Amiodarone [Cordarone 200 MG TAB] 200 mg PO BID 10/14/18 10/14/18 10/07/18 Hi story Arformoterol Nebu [Brovana Nebu] 15 mcg IH BID 10/14/18 10/14/18 10/07/18 History Aspirin EC 81 mg PO DAILY 10/14/18 10/14/18 10/07/18 History Atorvastatin [Lipitor] 80 mg PO QHS 10/14/18 10/14/18 10/06/18 History Cetirizine HCl [Cetirizine 10mg 10 mg PO DAILY 10/14/18 10/14/18 10/07/18 History chew] Escitalopram Oxalate [Lexapro] 5 mg PO DAILY 10/14/18 10/14/18 10/07/18 History Fluticasone/Salmeterol [Advair 1 puff PO BID PRN 10/14/18 10/14/18 10/06/18 History Diskus 250-50 mcg] HYDROcodone/APAP 5-325 [[place] 1 tab PO PRN PRN 10/14/18 10/14/18 10/03/18 History 5-325 mg TAB] Pantoprazole [Protonix TAB] 40 mg PO DAILY 10/14/18 10/14/18 10/07/18 History Proventil Hfa 2 puff INHALATION Q4H PRN 10/14/18 10/14/18 10/07/18 History Sennosides Tab [Senokot] 1 tab PO BID PRN 10/14/18 10/14/18 10/06/18 History Simethicone [Anti-Gas] 160 mg PO TID 10/14/18 10/14/18 10/07/18 History Warfarin [Coumadin] 1 mg PO DAILY 10/14/18 10/14/18 10/07/18 History Acetaminophen [Acetaminophen ER] 650 mg PO QID PRN #30 tablet.er 10/22/18 Unknown Rx Acetaminophen [Acetaminophen TAB] 500 mg PO Q8H PRN #12 tablet 11/21/18 Unknown Rx Doxycycline Hyclate [Doxycycline 100 mg PO Q12HR 10 Days #20 tab 12/09/18 Unknown Rx Hyclate TAB] methylPREDNISolone [Medrol 4MG 4 mg PO DAILY 6 Days #1 tab.ds.pk 12/09/18 Unknown Rx DOSEPAK (21 tabs)] Benzonatate [Tessalon Perles] 100 mg PO Q8HR #10 capsule 12/26/18 Unknown Rx Fluticasone [Flonase] 1 spray NS QDAY #1 bottle 12/26/18 Unknown Rx predniSONE [Deltasone] 20 mg PO QDAY #5 tab 12/26/18 Unknown Rx Azithromycin [Zithromax Z-RENETTA] 250 mg PO DAILY #5 tablet 01/08/19 Unknown Rx predniSONE [Deltasone] 40 mg PO QDAY 3 Days #8 tab 01/08/19 Unknown Rx ED Physical Exam - General Limitations: No Limitations - Other Other exam information: General: No acute distress Head: Atraumatic Eyes: normal appearance ENT: Moist mucous membranes Neck: Normal appearance, no midline tenderness Chest: Clear to auscultation bilaterally, sternotomy scar went chest wall tenderness. Mild expiratory wheeze CV: Regular rate and rhythm Abdomen: Soft, normal bowel sounds, nontender, nondistended, no rebound or guarding Back: Normal inspection Extremity: Normal inspection infection, full range of motion Neuro: Alert O x 3, no facial asymmetry, speech clear, no gross motor sensory deficit Psych: Appropriate behavior Skin: No rash ED Course Vital Signs 01/08/19 01/08/19 01/08/19 19:24 20:48 21:50 Temperature 101.2 F H Pulse Rate 85 78 Pulse Rate [ 82 Bilateral Throughout] Respiratory 22 20 Rate Respiratory 18 Rate [Bilateral Throughout] Blood Pressure 122/48 Blood Pressure 117/47 [Left] O2 Sat by Pulse 95 Oximetry ED Medical Decision Making - Lab Data Result diagrams: 01/08/19 21:41 01/08/19 21:21 Lab Results 01/08/19 01/08/19 01/08/19 Range/Units 21:21 21:21 21:21 WBC (4.5-11.0) K/mm3 RBC (3.65-5.03) M/mm3 Hgb (10.1-14.3) gm/dl Hct (30.3-42.9) % MCV (79-97) fl MCH (28-32) pg MCHC (30-34) % RDW (13.2-15.2) % Plt Count (140-440) K/mm3 Lymph % (Auto) (13.4-35.0) % [place] % (Auto) (0.0-7.3) % Eos % (Auto) (0.0-4.3) % Baso % (Auto) (0.0-1.8) % Lymph # (1.2-5.4) K/mm3 [place] # (0.0-0.8) K/mm3 Eos # (0.0-0.4) K/mm3 Baso # (0.0-0.1) K/mm3 Seg Neutrophils % (40.0-70.0) % Seg Neutrophils # (1.8-7.7) K/mm3 PT (12.2-14.9) Sec. INR (0.87-1.13) APTT (24.2-36.6) Sec. VBG pH 7.374 (7.320-7.420) Sodium 140 (137-145) mmol/L Potassium 4.1 (3.6-5.0) mmol/L Chloride 101.0 (98-107) mmol/L Carbon Dioxide 25 (22-30) mmol/L Anion Gap 18 mmol/L BUN 9 (7-17) mg/dL Creatinine 1.0 (0.7-1.2) mg/dL Estimated GFR > 60 ml/min BUN/Creatinine Ratio 9 % Glucose 111 H (65-100) mg/dL Lactic Acid 1.50 (0.7-2.0) mmol/L Calcium 8.6 (8.4-10.2) mg/dL Total Bilirubin 0.70 (0.1-1.2) mg/dL AST 95 H (5-40) units/L ALT 169 H (7-56) units/L Alkaline Phosphatase 130 H (35-129) units/L NT-Pro-B Natriuret Pep (0-900) pg/mL Total Protein 7.1 (6.3-8.2) g/dL Albumin 4.0 (3.9-5) g/dL Albumin/Globulin Ratio 1.3 % Influenza A (Rapid) (Negative) Influenza B (Rapid) (Negative) 01/08/19 01/08/19 01/08/19 Range/Units 21:21 21:21 21:41 WBC 10.3 (4.5-11.0) K/mm3 RBC 4.65 (3.65-5.03) M/mm3 Hgb 13.0 (10.1-14.3) gm/dl Hct 39.6 (30.3-42.9) % MCV 85 (79-97) fl MCH 28 (28-32) pg MCHC 33 (30-34) % RDW 16.4 H (13.2-15.2) % Plt Count 281 (140-440) K/mm3 Lymph % (Auto) 14.3 (13.4-35.0) % [place] % (Auto) 10.7 H (0.0-7.3) % Eos % (Auto) 1.8 (0.0-4.3) % Baso % (Auto) 1.1 (0.0-1.8) % Lymph # 1.5 (1.2-5.4) K/mm3 [place] # 1.1 H (0.0-0.8) K/mm3 Eos # 0.2 (0.0-0.4) K/mm3 Baso # 0.1 (0.0-0.1) K/mm3 Seg Neutrophils % 72.1 H (40.0-70.0) % Seg Neutrophils # 7.4 (1.8-7.7) K/mm3 PT 30.0 H (12.2-14.9) Sec. INR 2.94 H (0.87-1.13) APTT 47.9 H (24.2-36.6) Sec. VBG pH (7.320-7.420) Sodium (137-145) mmol/L Potassium (3.6-5.0) mmol/L Chloride (98-107) mmol/L Carbon Dioxide (22-30) mmol/L Anion Gap mmol/L BUN (7-17) mg/dL Creatinine (0.7-1.2) mg/dL Estimated GFR ml/min BUN/Creatinine Ratio % Glucose (65-100) mg/dL Lactic Acid (0.7-2.0) mmol/L Calcium (8.4-10.2) mg/dL Total Bilirubin (0.1-1.2) mg/dL AST (5-40) units/L ALT (7-56) units/L Alkaline Phosphatase (35-129) units/L NT-Pro-B Natriuret Pep 612.4 (0-900) pg/mL Total Protein (6.3-8.2) g/dL Albumin (3.9-5) g/dL Albumin/Globulin Ratio % Influenza A (Rapid) (Negative) Influenza B (Rapid) (Negative) 01/08/19 Range/Units 21:45 WBC (4.5-11.0) K/mm3 RBC (3.65-5.03) M/mm3 Hgb (10.1-14.3) gm/dl Hct (30.3-42.9) % MCV (79-97) fl MCH (28-32) pg MCHC (30-34) % RDW (13.2-15.2) % Plt Count (140-440) K/mm3 Lymph % (Auto) (13.4-35.0) % [place] % (Auto) (0.0-7.3) % Eos % (Auto) (0.0-4.3) % Baso % (Auto) (0.0-1.8) % Lymph # (1.2-5.4) K/mm3 [place] # (0.0-0.8) K/mm3 Eos # (0.0-0.4) K/mm3 Baso # (0.0-0.1) K/mm3 Seg Neutrophils % (40.0-70.0) % Seg Neutrophils # (1.8-7.7) K/mm3 PT (12.2-14.9) Sec. INR (0.87-1.13) APTT (24.2-36.6) Sec. VBG pH (7.320-7.420) Sodium (137-145) mmol/L Potassium (3.6-5.0) mmol/L Chloride (98-107) mmol/L Carbon Dioxide (22-30) mmol/L Anion Gap mmol/L BUN (7-17) mg/dL Creatinine (0.7-1.2) mg/dL Estimated GFR ml/min BUN/Creatinine Ratio % Glucose (65-100) mg/dL Lactic Acid (0.7-2.0) mmol/L Calcium (8.4-10.2) mg/dL Total Bilirubin (0.1-1.2) mg/dL AST (5-40) units/L ALT (7-56) units/L Alkaline Phosphatase (35-129) units/L NT-Pro-B Natriuret Pep (0-900) pg/mL Total Protein (6.3-8.2) g/dL Albumin (3.9-5) g/dL Albumin/Globulin Ratio % Influenza A (Rapid) Negative (Negative) Influenza B (Rapid) Negative (Negative) - Radiology Data Radiology results: report reviewed CHEST 2 VIEWS INDICATION: cough and fever, r/o pneumonia. COMPARISON: 12/26/2018 FINDINGS: Support devices: None. Heart: Stable postoperative changes in the chest with normal heart size. Lungs/pleura: No acute air space or interstitial disease. No pneumothorax. Additional findings: None. IMPRESSION: 1. No acute findings. - Medical Decision Making Patient feeling better with ED treatment. no early infiltrate or signs of sepsis. Suspect a viral cause however, patient has significant history. Will be encouraged to continue antibiotics, given additional doses, and additional prednisone. Encouraged to follow up with her signal engineer. Blood cultures pending - Differential Diagnosis pneumonia, acute bronchitis, viral syndrome, sepsis, endocarditis Critical Care Time: No Critical care attestation.: If time is entered above; I have spent that time in minutes in the direct care of this critically ill patient, excluding procedure time. ED Disposition Clinical Impression: Acute bronchitis with COPD, Fever Disposition: - TO HOME OR SELFCARE Is pt being admited?: No Does the pt Need Aspirin: No Condition: Stable Instructions: Fever in Adults (ED), Acute Bronchitis (ED) Additional Instructions: Take the medication as prescribed. Follow-up with your signal engineer in the next 2-3 days.. Return if symptoms worsen as indicated by your discharge instructions. Prescriptions: predniSONE [Deltasone] 40 mg PO QDAY 3 Days #8 tab Azithromycin [Zithromax Z-RENETTA] 250 mg PO DAILY #5 tablet Referrals: your, lung doctor [Other] - 2-3 Days
[2019-01-08 23:59] VITALS: BP 118/45
== END 2019-01-09 00:21 | disposition home or self-care (01) ==
LOC: ED 18:29
DX: J44.9 Chronic obstructive pulmonary disease, unspecified (principal); I50.9 Heart failure, unspecified; K21.9 Gastro-esophageal reflux disease without esophagitis; I48.91 Unspecified atrial fibrillation; F17.200 Nicotine dependence, unspecified, uncomplicated; Z98.890 Other specified postprocedural states; Z79.899 Other long term (current) drug therapy; Z88.5 Allergy status to narcotic agent; Z91.041 Radiographic dye allergy status
CPT/HCPCS: 36415; 71046; 80053; 82140; 82805; 83880; 85025; 85610; 85730; 87040; 87400; 94640; 99284; J7512; 94644

== ENCOUNTER 2019-01-26 23:01 | Emergency (ER) | payer MEDICARE ==
[2019-01-26 23:49] LABS: Basophils # (Auto) 0.1 K/mm3 (0.0-0.1); Basophils % (Auto) 1.2 % (0.0-1.8); Eosinophils # (Auto) 0.5 K/mm3 (0.0-0.4); Eosinophils % (Auto) 5.2 % (0.0-4.3); Hematocrit 39.8 % (30.3-42.9); Hemoglobin 12.9 gm/dl (10.1-14.3); Lymphocytes # (Auto) 2.1 K/mm3 (1.2-5.4); Lymphocytes % (Auto) 22.8 % (13.4-35.0); Mean Corpuscular HGB Conc 33 % (30-34); Mean Corpuscular Volume 86 fl (79-97); Monocytes # (Auto) 0.6 K/mm3 (0.0-0.8); Monocytes % (Auto) 6.6 % (0.0-7.3); Platelet Count 408 K/mm3 (140-440); Red Blood Count 4.65 M/mm3 (3.65-5.03); Red Cell Distribution Width 16.5 % (13.2-15.2)
[2019-01-26 23:57] LABS: Bacteria,Urine 1+ /HPF (Negative); Bilirubin,Urine NEG (Negative); Blood,Urine NEG (Negative); Color,Urine Yellow (Yellow); Mucus,Urine FEW /HPF
[2019-01-27 00:11] LABS: Albumin 3.6 g/dL (3.9-5); Calcium 9.1 mg/dL (8.4-10.2)
--- NOTE | 2019-01-27 02:50 | Emergency Department Report ---
HPI - General Chief Complaint: Abdominal Pain Time Seen by Provider: 01/27/19 02:36 - HPI HPI: Room 8 The patient is a 58-year-old female presenting with a chief complaint abdominal pain. Patient states her symptoms began yesterday with periumbilical abdominal pain. Patient describes the pain as constant and sharp in nature. Patient is to nausea vomiting and diarrhea. Patient denies fever or sick contacts. Patient currently gives her pain a score of 9/10. Location: [See above] Duration: [See above] Quality: [See above] Severity: [See above] Timing: [See above] Context: [See above] Modifying factors: [See above] Mode of transportation: The patient drove herself to the emergency department and she has a young child accompanying her. There are no other visitors present and the patient states other family members who can drive are currently at work ED Past Medical Hx - Past Medical History Previous Medical History?: Yes Hx Congestive Heart Failure: Yes Hx GERD: Yes Hx Asthma: Yes Hx COPD: Yes (O2-2lpm continuously) Additional medical history: gall stones, fibroids, MVP, myomectomy. A. fib with rvr - Surgical History Past Surgical History?: Yes Hx Open Heart Surgery: Yes (Mitral and Tricuspid valve replacement/surgery (based on cxr) 05/2018) Additional Surgical History: fibroid removal - Family History Family history: no significant - Social History Smoking Status: Current Every Day Smoker Substance Use Type: None - Medications Home Medications: Home Medications Medication Instructions Recorded Confirmed Last Taken Type Furosemide [Lasix TAB] 40 mg PO QDAY 04/25/18 10/14/18 10/07/18 History Potassium Chloride [K-Dur] 20 meq PO QDAY 04/25/18 10/14/18 10/07/18 History Acetaminophen [Acetaminophen ER] 650 mg PO PRN PRN 10/14/18 10/14/18 10/03/18 History Amiodarone [Cordarone 200 MG TAB] 200 mg PO BID 10/14/18 10/14/18 10/07/18 History Arformoterol Nebu [Brovana Nebu] 15 mcg IH BID 10/14/18 10/14/18 10/07/18 History Aspirin EC 81 mg PO DAILY 10/14/18 10/14/18 10/07/18 History Atorvastatin [Lipitor] 80 mg PO QHS 10/14/18 10/14/18 10/06/18 History Cetirizine HCl [Cetirizine 10mg 10 mg PO DAILY 10/14/18 10/14/18 10/07/18 History chew] Escitalopram Oxalate [Lexapro] 5 mg PO DAILY 10/14/18 10/14/18 10/07/18 History Fluticasone/Salmeterol [Advair 1 puff PO BID PRN 10/14/18 10/14/18 10/06/18 History Diskus 250-50 mcg] HYDROcodone/APAP 5-325 [[place] 1 tab PO PRN PRN 10/14/18 10/14/18 10/03/18 History 5-325 mg TAB] Pantoprazole [Protonix TAB] 40 mg PO DAILY 10/14/18 10/14/18 10/07/18 History Proventil Hfa 2 puff INHALATION Q4H PRN 10/14/18 10/14/18 10/07/18 History Sennosides Tab [Senokot] 1 tab PO BID PRN 10/14/18 10/14/18 10/06/18 History Simethicone [Anti-Gas] 160 mg PO TID 10/14/18 10/14/18 10/07/18 History Warfarin [Coumadin] 1 mg PO DAILY 10/14/18 10/14/18 10/07/18 History Acetaminophen [Acetaminophen ER] 650 mg PO QID PRN #30 tablet.er 10/22/18 Unknown Rx Acetaminophen [Acetaminophen TAB] 500 mg PO Q8H PRN #12 tablet 11/21/18 Unknown Rx Doxycycline Hyclate [Doxycycline 100 mg PO Q12HR 10 Days #20 tab 12/09/18 Unknown Rx Hyclate TAB] methylPREDNISolone [Medrol 4MG 4 mg PO DAILY 6 Days #1 tab.ds.pk 12/09/18 Unknown Rx DOSEPAK (21 tabs)] Benzonatate [Tessalon Perles] 100 mg PO Q8HR #10 capsule 12/26/18 Unknown Rx Fluticasone [Flonase] 1 spray NS QDAY #1 bottle 12/26/18 Unknown Rx predniSONE [Deltasone] 20 mg PO QDAY #5 tab 12/26/18 Unknown Rx Azithromycin [Zithromax Z-RENETTA] 250 mg PO DAILY #5 tablet 01/08/19 Unknown Rx predniSONE [Deltasone] 40 mg PO QDAY 3 Days #8 tab 01/08/19 Unknown Rx Dicyclomine [Bentyl] 20 mg PO QID #30 tablet 01/27/19 Unknown Rx HYDROcodone/APAP 5-325 [[place] 1 - 2 each PO Q6HR PRN #14 tablet 01/27/19 Unknown Rx 5/325] Ondansetron [Zofran ODT TAB] 8 mg PO Q8HR #20 tab.rapdis 01/27/19 Unknown Rx ED Review of Systems ROS: Stated complaint: ABD PAIN Other details as noted in HPI Constitutional: denies: fever Eyes: denies: eye pain ENT: denies: throat pain Respiratory: no symptoms reported Cardiovascular: denies: chest pain Endocrine: no symptoms reported Gastrointestinal: abdominal pain, nausea, vomiting, diarrhea Genitourinary: denies: dysuria Musculoskeletal: denies: back pain Neurological: denies: headache Physical Exam - Physical Exam Vital Signs: Vital Signs 01/26/19 23:06 Temperature 97.9 F Pulse Rate 73 Respiratory 16 Rate Blood Pressure 134/39 O2 Sat by Pulse 100 Oximetry Physical Exam: GENERAL: The patient is well-developed well-nourished female lying on stretcher not appearing to be in acute distress. [] HEENT: Normocephalic. Atraumatic. Extraocular motions are intact. Patient has moist mucous membranes. NECK: Supple. Trachea midline CHEST/LUNGS: Clear to auscultation. There is no respiratory distress noted. HEART/CARDIOVASCULAR: Regular. There is no tachycardia. There is no gallop rub or murmur. ABDOMEN: Abdomen is soft, with tenderness to palpation in the right upper quadrant, right lower quadrant and periumbilical region. Patient has normal bowel sounds. There is no abdominal distention. SKIN: There is no rash. There is no edema. There is no diaphoresis. NEURO: The patient is awake, alert, and oriented. The patient is cooperative. The patient has normal speech MUSCULOSKELETAL: There is no evidence of acute injury. ED Course Vital Signs 01/26/19 23:06 Temperature 97.9 F Pulse Rate 73 Respiratory 16 Rate Blood Pressure 134/39 O2 Sat by Pulse 100 Oximetry ED Medical Decision Making - Lab Data Result diagrams: 01/26/19 23:26 01/26/19 23:26 Laboratory Tests 01/26/19 01/26/19 01/26/19 23:26 23:26 Unknown WBC 9.4 RBC 4.65 Hgb 12.9 Hct 39.8 MCV 86 MCH 28 MCHC 33 RDW 16.5 H Plt Count 408 Lymph % (Auto) 22.8 [place] % (Auto) 6.6 Eos % (Auto) 5.2 H Baso % (Auto) 1.2 Lymph # 2.1 [place] # 0.6 Eos # 0.5 H Baso # 0.1 Seg Neutrophils % 64.2 Seg Neutrophils # 6.0 PT INR APTT Sodium 143 Potassium 4.7 Chloride 105.3 Carbon Dioxide 25 Anion Gap 17 BUN 13 Creatinine 1.3 H Estimated GFR 51 BUN/Creatinine Ratio 10 Glucose 116 H Calcium 9.1 Total Bilirubin 0.40 AST 36 ALT 37 Alkaline Phosphatase 109 Total Protein 7.6 Albumin 3.6 L Albumin/Globulin Ratio 0.9 Lipase 25 Urine Color Yellow Urine Turbidity Clear Urine pH 7.0 Ur Specific [place] 1.021 Urine Protein 30 mg/dl Urine Glucose (UA) Neg Urine Ketones Neg Urine Blood Neg Urine Nitrite Neg Urine Bilirubin Neg Urine Urobilinogen 4.0 Ur Leukocyte Esterase Neg Urine WBC (Auto) 2.0 Urine RBC (Auto) 1.0 U Epithel Cells (Auto) 2.0 Urine Bacteria (Auto) 1+ Urine Mucus Few 01/27/19 04:32 WBC RBC Hgb Hct MCV MCH MCHC RDW Plt Count Lymph % (Auto) [place] % (Auto) Eos % (Auto) Baso % (Auto) Lymph # [place] # Eos # Baso # Seg Neutrophils % Seg Neutrophils # PT 28.6 H INR 2.76 H APTT 41.6 H Sodium Potassium Chloride Carbon Dioxide Anion Gap BUN Creatinine Estimated GFR BUN/Creatinine Ratio Glucose Calcium Total Bilirubin AST ALT Alkaline Phosphatase Total Protein Albumin Albumin/Globulin Ratio Lipase Urine Color Urine Turbidity Urine pH Ur Specific [place] Urine Protein Urine Glucose (UA) Urine Ketones Urine Blood Urine Nitrite Urine Bilirubin Urine Urobilinogen Ur Leukocyte Esterase Urine WBC (Auto) Urine RBC (Auto) U Epithel Cells (Auto) Urine Bacteria (Auto) Urine Mucus - Radiology Data Radiology results: report reviewed (acute abdominal series x-ray, right upper quadrant ultrasound), image reviewed (acute abdominal series x-ray, right upper quadrant ultrasound) interpreted by me: Acute abdominal series x-ray-no free air, no evidence of obstruction [address] [address] XRay Report Signed Patient: KAYLEE RAMEY MR#: [id number] [birth year] : 1960 Acct:[id number] Age/Sex: 58 / F ADM Date: 01/26/19 Loc: ED Attending Dr: Ordering Physician: ELIZABETH GIL MD Date of Service: 01/27/19 Procedure(s): XR abd series w cxr 1V Accession Number(s): [id number] cc: ELIZABETH GIL MD Fluoro Time In Minutes: Chest and abdominal series. 01/27/2019. HISTORY: Nausea and vomiting. Chest one view: Heart size is normal status post previous median sternotomy. Negative for edema, effusion or infiltrate. Two-view abdomen: Gas is scattered throughout the abdomen in a nonobstructive fashion. Negative for free air, suspicious calcification or significant constipation. Signer Name: Luc Wetzel MD Signed: 01/27/2019 3:39 AM Workstation Name: [email or web address] Transcribed By: ES Dictated By: Luc Wetzel MD Electronically Authenticated By: Jonny Wetzel MD Signed Date/Time: 01/27/19338 DD/ 7 TD/TT: [address] [address] Ultrasound Report Signed Patient: KAYLEE RAMEY MR#: [id number] [birth year] : 1960 Acct:[id number] Age/Sex: 58 / F ADM Date: 01/26/19 Loc: ED Attending Dr: Ordering Physician: ELIZABETH GIL MD Date of Service: 01/27/19 Procedure(s): US abdomen limited Accession Number(s): [id number] cc: ELIZABETH GIL MD ULTRASOUND ABDOMEN, LIMITED (RIGHT UPPER QUADRANT) INDICATION: right-sided pain. COMPARISON: None available. FINDINGS: Pancreas: Visualized portion shows no significant abnormality. Liver: Normal. Gallbladder: Gallbladder is distended with stones. Bile ducts: Normal. Common Bile Duct measures 1.2 mm. Free fluid: None. Additional Findings: None. IMPRESSION: Gallstones. Negative for wall thickening or biliary dilatation. Signer Name: Luc Wetzel MD Signed: 01/27/2019 4:16 AM Workstation Name: [id number] Transcribed By: ES Dictated By: Luc Wetzel MD Electronically Authenticated By: Luc Wetzel MD Signed Date/Time: 01/27/19415 DD/ 4 TD/TT: - Differential Diagnosis gastroenteritis, partial small bowel obstruction, cholelithiasis, Critical care attestation.: If time is entered above; I have spent that time in minutes in the direct care of this critically ill patient, excluding procedure time. ED Disposition Clinical Impression: Symptomatic cholelithiasis Disposition: TO HOME OR SELFCARE Is pt being admited?: No Does the pt Need Aspirin: No Condition: Stable Instructions: Abdominal Pain (ED), Biliary Colic (ED), Cholelithiasis (ED) Additional Instructions: Return to the emergency department should you develop worsening symptoms, inability to tolerate food or liquids, high fever or any other concerns Prescriptions: Dicyclomine [Bentyl] 20 mg PO QID #30 tablet HYDROcodone/APAP 5-325 [[place] 5/325] 1 - 2 each PO Q6HR PRN #14 tablet PRN Reason: Pain Ondansetron [Zofran ODT TAB] 8 mg PO Q8HR #20 tab.rapdis Referrals: WIL CUNHA DO [Staff Physician] - 3-5 Days (Dr. Cunha is a general surgeon. Please follow up with her for further evaluation of your gallstones) CLAUS GONZALEZ MD [Staff Physician] - 3-5 Days (Dr Gonzalez is a dietary manager. Please follow up with him for further evaluation) Time of Disposition: 05:06
--- NOTE | 2019-01-27 03:44 | XRay Report ---
Chest and abdominal series. 01/27/2019. HISTORY: Nausea and vomiting. Chest one view: Heart size is normal status post previous median sternotomy. Negative for edema, effu madhav or infiltrate. Two-view abdomen: Gas is scattered throughout the abdomen in a nonobstructive fashion. Negative for f ree air, suspicious calcification or significant constipation. Signer Name: Luc Wetzel MD Signed: 01/27/2019 3:39 AM Workstation Name: [id number]
--- NOTE | 2019-01-27 04:20 | Ultrasound Report ---
ULTRASOUND ABDOMEN, LIMITED (RIGHT UPPER QUADRANT) INDICATION: right-sided pain. COMPARISON: None available. FINDINGS: Pancreas: Visualized portion shows no significant abnormality. Liver: Normal. Gallbladder: Gallbladder is distended with stones. Bile ducts: Normal. Common Bile Duct measures 1.2 mm. Free fluid: None. Additional Findings: None. IMPRESSION: Gallstones. Negative for wall thickening or biliary dilatation. Signer Name: Lcu Wetzel MD Signed: 01/27/2019 4:16 AM Workstation Name: [id number]
[2019-01-27 04:57] LABS: INR 2.76 (0.87-1.13)
[2019-01-27 04:58] LABS: Partial Thromboplastin Time 41.6 Sec. (24.2-36.6)
[2019-01-27 05:48] VITALS: BP 135/52
== END 2019-01-27 05:25 | disposition home or self-care (01) ==
LOC: ED 23:01
DX: K80.20 Calculus of gallbladder without cholecystitis without obstruction (principal); I50.9 Heart failure, unspecified; K21.9 Gastro-esophageal reflux disease without esophagitis; J44.9 Chronic obstructive pulmonary disease, unspecified; M79.7 Fibromyalgia; I48.91 Unspecified atrial fibrillation; F17.200 Nicotine dependence, unspecified, uncomplicated; Z98.890 Other specified postprocedural states; Z79.82 Long term (current) use of aspirin; Z91.041 Radiographic dye allergy status; Z88.5 Allergy status to narcotic agent; Z79.899 Other long term (current) drug therapy; Z79.02 Long term (current) use of antithrombotics/antiplatelets
CPT/HCPCS: 36415; 74022; 76705; 80053; 81001; 83690; 85025; 85610; 85730; 99284

== ENCOUNTER 2019-02-11 20:53 | Emergency (ER) | payer MEDICARE ==
[2019-02-11 20:58] VITALS: BP 147/51
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
[2019-02-11] MEDS ORDERED: ACETAMINOPHEN 500 MG TAB PO ONE (23:31)
[2019-02-11] MEDS ORDERED: IBUPROFEN 600 MG TAB PO ONE (23:31)
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
== END 2019-02-12 00:41 | disposition home or self-care (01) ==
LOC: ED 20:53
DX: M62.830 Muscle spasm of back (principal); M62.838 Other muscle spasm; G44.319 Acute post-traumatic headache, not intractable; I50.9 Heart failure, unspecified; K21.9 Gastro-esophageal reflux disease without esophagitis; J44.1 Chronic obstructive pulmonary disease with (acute) exacerbation; F17.200 Nicotine dependence, unspecified, uncomplicated; Z79.899 Other long term (current) drug therapy; Z91.041 Radiographic dye allergy status; Z88.6 Allergy status to analgesic agent
CPT/HCPCS: 72100

== ENCOUNTER 2019-04-07 21:09 | Emergency (ER) | payer MEDICARE ==
[2019-04-07 22:04] VITALS: BP 131/39
--- NOTE | 2019-04-08 02:31 | Emergency Department Report ---
ED General Adult HPI - General Chief complaint: Extremity Injury, Upper Stated complaint: LUMP ON R LEG Time Seen by Provider: 04/08/19 01:22 Source: patient Mode of arrival: Ambulatory Limitations: No Limitations - History of Present Illness Initial comments: 58-year-old -[place] female with history of CHF, mechanical heart valve, and COPD presents with complaints of sinus pain and pressure 3 days and right lower leg pain and swelling today. Patient states she is currently on Coumadin for her heart valve. She denies any shortness of breath, recent long travel, history of DVT/PE, hemoptysis, recent surgeries, or hormone use. She rates her facial pain and pressure as a 7/10 in severity and admits to congestion. She denies any fevers/chills/sweats, vision changes, dizziness, or syncopal episodes. She rates the pain in her leg as a 5/10 in severity. -: Sudden Radiation: non-radiation Consistency: constant - Related Data Home Medications Medication Instructions Recorded Confirmed Last Taken Furosemide [Lasix TAB] 40 mg PO QDAY 04/25/18 10/14/18 10/07/18 Potassium Chloride [K-Dur] 20 meq PO QDAY 04/25/18 10/14/18 10/07/18 Acetaminophen [Acetaminophen ER] 650 mg PO PRN PRN 10/14/18 10/14/18 10/03/18 Amiodarone [Cordarone 200 MG TAB] 200 mg PO BID 10/14/18 10/14/18 10/07/18 Arformoterol Nebu [Brovana Nebu] 15 mcg IH BID 10/14/18 10/14/18 10/07/18 Aspirin EC 81 mg PO DAILY 10/14/18 10/14/18 10/07/18 Atorvastatin [Lipitor] 80 mg PO QHS 10/14/18 10/14/18 10/06/18 Cetirizine HCl [Cetirizine 10mg 10 mg PO DAILY 10/14/18 10/14/18 10/07/18 chew] Escitalopram Oxalate [Lexapro] 5 mg PO DAILY 10/14/18 10/14/18 10/07/18 Fluticasone/Salmeterol [Advair 1 puff PO BID PRN 10/14/18 10/14/18 10/06/18 Diskus 250-50 mcg] HYDROcodone/APAP 5-325 [[place] 1 tab PO PRN PRN 10/14/18 10/14/18 10/03/18 5-325 mg TAB] Pantoprazole [Protonix TAB] 40 mg PO DAILY 10/14/18 10/14/18 10/07/18 Proventil Hfa 2 puff INHALATION Q4H PRN 10/14/18 10/14/18 10/07/18 Sennosides Tab [Senokot] 1 tab PO BID PRN 10/14/18 10/14/18 10/06/18 Simethicone [Anti-Gas] 160 mg PO TID 10/14/18 10/14/18 10/07/18 Warfarin [Coumadin] 1 mg PO DAILY 10/14/18 10/14/18 10/07/18 Previous Rx's Medication Instructions Recorded Last Taken Type Acetaminophen [Acetaminophen ER] 650 mg PO QID PRN #30 tablet.er 10/22/18 Unknown Rx Acetaminophen [Acetaminophen TAB] 500 mg PO Q8H PRN #12 tablet 11/21/18 Unknown Rx Doxycycline Hyclate [Doxycycline 100 mg PO Q12HR 10 Days #20 tab 12/09/18 Unknown Rx Hyclate TAB] methylPREDNISolone [Medrol 4MG 4 mg PO DAILY 6 Days #1 tab.ds.pk 12/09/18 Unknown Rx DOSEPAK (21 tabs)] Benzonatate [Tessalon Perles] 100 mg PO Q8HR #10 capsule 12/26/18 Unknown Rx Fluticasone [Flonase] 1 spray NS QDAY #1 bottle 12/26/18 Unknown Rx predniSONE [Deltasone] 20 mg PO QDAY #5 tab 12/26/18 Unknown Rx Azithromycin [Zithromax Z-RENETTA] 250 mg PO DAILY #5 tablet 01/08/19 Unknown Rx predniSONE [Deltasone] 40 mg PO QDAY 3 Days #8 tab 01/08/19 Unknown Rx Dicyclomine [Bentyl] 20 mg PO QID #30 tablet 01/27/19 Unknown Rx HYDROcodone/APAP 5-325 [[place] 1 - 2 each PO Q6HR PRN #14 tablet 01/27/19 Unknown Rx 5/325] Ondansetron [Zofran ODT TAB] 8 mg PO Q8HR #20 tab.rapdis 01/27/19 Unknown Rx Ibuprofen [Motrin] 600 mg PO Q8H PRN #24 tablet 02/12/19 Unknown Rx Methocarbamol [Robaxin] 500 mg PO Q8H PRN #15 tablet 02/12/19 Unknown Rx traMADoL [Ultram] 50 mg PO Q6HR PRN #12 tablet 02/12/19 Unknown Rx predniSONE [Deltasone] 10 mg PO BID 3 Days #6 tab 04/08/19 Unknown Rx Allergies Allergy/AdvReac Type Severity Reaction Status Date / Time Iodinated Contrast Media Allergy Swelling Verified 09/06/18 20:54 morphine Allergy Rash Verified 10/14/18 06:45 ED Review of Systems ROS: Stated complaint: LUMP ON R LEG Other details as noted in HPI Constitutional: denies: chills, fever Eyes: denies: eye pain, eye discharge, vision change ENT: congestion. denies: throat pain Respiratory: denies: cough, shortness of breath Cardiovascular: denies: chest pain, palpitations Gastrointestinal: denies: nausea, vomiting Skin: denies: rash, lesions ED Past Medical Hx - Past Medical History Previous Medical History?: Yes Hx Hypertension: No Hx CVA: No Hx Heart Attack/AMI: No Hx Congestive Heart Failure: Yes Hx Diabetes: No Hx Deep Vein Thrombosis: No Hx Pulmonary Embolism: No Hx GERD: Yes Hx Liver Disease: No Hx Renal Disease: No Hx Sickle Cell Disease: No Hx Arthritis: No Hx Headaches / Migraines: No Hx Seizures: No Hx Kidney Stones: No Hx Psychiatric Treatment: No Hx Asthma: Yes Hx COPD: (O2-2lpm continuously) Hx Tuberculosis: No Hx Dementia: No Hx HIV: No Additional medical history: gall stones, fibroids, MVP, myomectomy. A. fib with rvr - Surgical History Past Surgical History?: Yes Hx Coronary Stent: No Hx Open Heart Surgery: Yes (Mitral and Tricuspid valve replacement/surgery (based on cxr) 05/2018) Hx Pacemaker: No Hx Internal Defibrillator: No Hx Cholecystectomy: No Hx Appendectomy: No Hx Breast Surgery: No Additional Surgical History: fibroid removal - Social History Smoking Status: Current Every Day Smoker - Medications Home Medications: Home Medications Medication Instructions Recorded Confirmed Last Taken Type Furosemide [Lasix TAB] 40 mg PO QDAY 04/25/18 10/14/18 10/07/18 History Potassium Chloride [K-Dur] 20 meq PO QDAY 04/25/18 10/14/18 10/07/18 History Acetaminophen [Acetaminophen ER] 650 mg PO PRN PRN 10/14/18 10/14/18 10/03/18 History Amiodarone [Cordarone 200 MG TAB] 200 mg PO BID 10/14/18 10/14/18 10/07/18 History Arformoterol Nebu [Brovana Nebu] 15 mcg IH BID 10/14/18 10/14/18 10/07/18 History Aspirin EC 81 mg PO DAILY 10/14/18 10/14/18 10/07/18 History Atorvastatin [Lipitor] 80 mg PO QHS 10/14/18 10/14/18 10/06/18 History Cetirizine HCl [Cetirizine 10mg 10 mg PO DAILY 10/14/18 10/14/18 10/07/18 History chew] Escitalopram Oxalate [Lexapro] 5 mg PO DAILY 10/14/18 10/14/18 10/07/18 History Fluticasone/Salmeterol [Advair 1 puff PO BID PRN 10/14/18 10/14/18 10/06/18 History Diskus 250-50 mcg] HYDROcodone/APAP 5-325 [[place] 1 tab PO PRN PRN 10/14/18 10/14/18 10/03/18 History 5-325 mg TAB] Pantoprazole [Protonix TAB] 40 mg PO DAILY 10/14/18 10/14/18 10/07/18 History Proventil Hfa 2 puff INHALATION Q4H PRN 10/14/18 10/14/18 10/07/18 History Sennosides Tab [Senokot] 1 tab PO BID PRN 10/14/18 10/14/18 10/06/18 History Simethicone [Anti-Gas] 160 mg PO TID 10/14/18 10/14/18 10/07/18 History Warfarin [Coumadin] 1 mg PO DAILY 10/14/18 10/14/18 10/07/18 History Acetaminophen [Acetaminophen ER] 650 mg PO QID PRN #30 tablet.er 10/22/18 Unknown Rx Acetaminophen [Acetaminophen TAB] 500 mg PO Q8H PRN #12 tablet 09/15/19 Unknown Rx Doxycycline Hyclate [Doxycycline 100 mg PO Q12HR 10 Days #20 tab 12/09/18 Unknown Rx Hyclate TAB] methylPREDNISolone [Medrol 4MG 4 mg PO DAILY 6 Days #1 tab.ds.pk 12/09/18 Unknown Rx DOSEPAK (21 tabs)] Benzonatate [Tessalon Perles] 100 mg PO Q8HR #10 capsule 12/26/18 Unknown Rx Fluticasone [Flonase] 1 spray NS QDAY #1 bottle 12/26/18 Unknown Rx predniSONE [Deltasone] 20 mg PO QDAY #5 tab 12/26/18 Unknown Rx Azithromycin [Zithromax Z-RENETTA] 250 mg PO DAILY #5 tablet 01/08/19 Unknown Rx predniSONE [Deltasone] 40 mg PO QDAY 3 Days #8 tab 01/08/19 Unknown Rx Dicyclomine [Bentyl] 20 mg PO QID #30 tablet 01/27/19 Unknown Rx HYDROcodone/APAP 5-325 [[place] 1 - 2 each PO Q6HR PRN #14 tablet 01/27/19 Unknown Rx 5/325] Ondansetron [Zofran ODT TAB] 8 mg PO Q8HR #20 tab.rapdis 01/27/19 Unknown Rx Ibuprofen [Motrin] 600 mg PO Q8H PRN #24 tablet 02/12/19 Unknown Rx Methocarbamol [Robaxin] 500 mg PO Q8H PRN #15 tablet 02/12/19 Unknown Rx traMADoL [Ultram] 50 mg PO Q6HR PRN #12 tablet 02/12/19 Unknown Rx predniSONE [Deltasone] 10 mg PO BID 3 Days #6 tab 04/08/19 Unknown Rx ED Physical Exam - General Limitations: No Limitations General appearance: alert, in no apparent distress - Head Head exam: Present: atraumatic, normocephalic - Eye Eye exam: Present: normal appearance - ENT ENT exam: Present: mucous membranes moist, other (tenderness to palpation bilaterally of frontal and maxillary sinuses. No erythema or swelling noted.) - Neck Neck exam: Present: normal inspection, full ROM - Respiratory Respiratory exam: Present: normal lung sounds bilaterally. Absent: respiratory distress - Cardiovascular Cardiovascular Exam: Present: regular rate, normal rhythm. Absent: rubs, gallop - Extremities Exam Extremities exam: Present: normal inspection, calf tenderness (right medial tenderness to palpation with small area of swelling. No overlying erythema or warmth noted) - Back Exam Back exam: Present: normal inspection - Neurological Exam Neurological exam: Present: alert, oriented X3 - Psychiatric Psychiatric exam: Present: normal affect - Skin Skin exam: Present: warm, dry, intact, normal color. Absent: rash ED Course Vital Signs 04/07/19 22:00 Temperature 98.6 F Pulse Rate 65 Respiratory 18 Rate Blood Pressure 131/39 O2 Sat by Pulse 95 Oximetry ED Medical Decision Making - Medical Decision Making 58-year-old -[place] female with history of CHF, mechanical heart valve, and COPD presents with complaints of sinus pain and pressure 3 days and right lower leg pain and swelling today. Tenderness to palpation odor of right lower leg with small area of swelling. She denies any injury to the leg. insulator technician is not available tonight. Order for Doppler ultrasound given and patient instructed to return at 8 AM to have test performed. Patient is c urrently on Coumadin and therefore does not require further anticoagulation. Headache appears to be due to acute sinusitis. Recommend conservative treatment with [id number] medications at this time. to follow up with her primary care provider concerning her sinuses. Discussed strict return precautions in detail with patient who verbalizes understanding. Critical care attestation.: If time is entered above; I have spent that time in minutes in the direct care of this critically ill patient, excluding procedure time. ED Disposition Clinical Impression: Acute viral sinusitis, Right leg pain Disposition: - TO HOME OR SELFCARE Is pt being admited?: No Condition: Stable Instructions: Sinusitis (ED) Additional Instructions: Return to the hospital at 8 AM to have more ultrasound of your right lower leg performed. Prescriptions: predniSONE [Deltasone] 10 mg PO BID 3 Days #6 tab Referrals: PRIMARY CARE, [Primary Care Provider] - 3-5 Days
== END 2019-04-08 02:45 | disposition home or self-care (01) ==
LOC: ED 21:09
DX: J01.90 Acute sinusitis, unspecified (principal); M79.661 Pain in right lower leg; I50.9 Heart failure, unspecified; K21.9 Gastro-esophageal reflux disease without esophagitis; F17.200 Nicotine dependence, unspecified, uncomplicated; J45.909 Unspecified asthma, uncomplicated; Z98.890 Other specified postprocedural states; Z79.1 Long term (current) use of non-steroidal anti-inflammatories (NSAID); Z79.899 Other long term (current) drug therapy; Z88.4 Allergy status to anesthetic agent; Z88.8 Allergy status to other drugs, medicaments and biological substances
CPT/HCPCS: 99282

== ENCOUNTER 2019-04-08 13:03 | Outpatient (CLI) | payer MEDICARE ==
--- NOTE | 2019-04-08 14:46 | Vascular Lab Report ---
DUPLEX DOPPLER RIGHT LOWER EXTREMITY VEINS INDICATION: Right leg pain and swelling FINDINGS: There is no thrombus within the deep veins of the right lower extremity from the common femoral to th e calf veins. There is normal compression and augmentation on spectral analysis. IMPRESSION: No sonographic evidence for DVT in the right lower extremity. Signer Name: Manolo Arceo MD Signed: 04/08/2019 2:42 PM Workstation Name: [id number]
== END 2019-04-08 13:04 | disposition home or self-care (01) ==
LOC: VAS 13:03
PROVIDERS: ATTEND Physician Assistant
DX: M79.661 Pain in right lower leg (principal)

== ENCOUNTER 2019-04-30 06:05 | Emergency (ER) | payer MEDICARE ==
[2019-04-30 06:16] VITALS: BP 115/49
[2019-04-30] MEDS ORDERED: predniSONE 20 MG TAB PO ONE (07:52)
--- NOTE | 2019-04-30 07:56 | Emergency Department Report ---
ED Rash HPI - HPI Chief Complaint: Wound/Laceration Stated Complaint: SPIDER BITE Time Seen by Provider: 04/30/19 07:52 Duration: Today Rash Symptoms: Yes Itching, No Facial Swelling, No Tongue/Oral Swelling, No Breathing Difficulties, No Choking Sensation, No Wheezing/Dyspnea, No Peeling, No Blistering, No Fever, No Lightheaded, No Malaise, No Myalgias Severity: mild Other History: This is an 58-year-old female who presents the ED complaining of right anterior thigh pain and some redness that she noticed this morning when she woke up. Patient states that she felt like insect or spider or something bit her on the thigh. Patient denies any swelling to the area. Patient denies fever/chills/nausea or vomiting abdominal pain chest pain shortness of breath or any other symptoms ED Review of Systems ROS: Stated complaint: SPIDER BITE Other details as noted in HPI Comment: All other systems reviewed and negative ED Past Medical Hx - Past Medical History Previous Medical History?: Yes Hx Hypertension: No Hx CVA: No Hx Heart Attack/AMI: No Hx Congestive Heart Failure: Yes Hx Diabetes: No Hx Deep Vein Thrombosis: No Hx Pulmonary Embolism: No Hx GERD: Yes Hx Liver Disease: No Hx Renal Disease: No Hx Sickle Cell Disease: No Hx Arthritis: No Hx Headaches / Migraines: No Hx Seizures: No Hx Kidney Stones: No Hx Psychiatric Treatment: No Hx Asthma: Yes Hx COPD: (O2-2lpm continuously) Hx Tuberculosis: No Hx Dementia: No Hx HIV: No Additional medical history: gall stones, fibroids, MVP, myomectomy. A. fib with rvr - Surgical History Hx Coronary Stent: No Hx Open Heart Surgery: Yes (Mitral and Tricuspid valve replacement/surgery (based on cxr) 05/2018) Hx Pacemaker: No Hx Internal Defibrillator: No Hx Cholecystectomy: No Hx Appendectomy: No Hx Breast Surgery: No Additional Surgical History: fibroid removal - Social History Smoking Status: Current Every Day Smoker Substance Use Type: None - Medications Home Medications: Home Medications Medication Instructions Recorded Confirmed Last Taken Type Furosemide [Lasix TAB] 40 mg PO QDAY 04/25/18 10/14/18 10/07/18 History Potassium Chloride [K-Dur] 20 meq PO QDAY 04/25/18 10/14/18 10/07/18 History Amiodarone [Cordarone 200 MG TAB] 200 mg PO BID 10/14/18 10/14/18 10/07/18 History Arformoterol Nebu [Brovana Nebu] 15 mcg IH BID 10/14/18 10/14/18 10/07/18 History Aspirin EC 81 mg PO DAILY 10/14/18 10/14/18 10/07/18 History Atorvastatin [Lipitor] 80 mg PO QHS 10/14/18 10/14/18 10/06/18 History Cetirizine HCl [Cetirizine 10mg 10 mg PO DAILY 10/14/18 10/14/18 10/07/18 History chew] Escitalopram Oxalate [Lexapro] 5 mg PO DAILY 10/14/18 10/14/18 10/07/18 History Fluticasone/Salmeterol [Advair 1 puff PO BID PRN 10/14/18 10/14/18 10/06/18 History Diskus 250-50 mcg] HYDROcodone/APAP 5-325 [[place] 1 tab PO PRN PRN 10/14/18 10/14/18 10/03/18 History 5-325 mg TAB] Pantoprazole [Protonix TAB] 40 mg PO DAILY 10/14/18 10/14/18 10/07/18 History Proventil Hfa 2 puff INHALATION Q4H PRN 10/14/18 10/14/18 10/07/18 History Sennosides Tab [Senokot] 1 tab PO BID PRN 10/14/18 10/14/18 10/06/18 History Simethicone [Anti-Gas] 160 mg PO TID 10/14/18 10/14/18 10/07/18 History Warfarin [Coumadin] 1 mg PO DAILY 10/14/18 10/14/18 10/07/18 History Acetaminophen [Acetaminophen ER] 650 mg PO QID PRN #30 tablet.er 10/22/18 Unknown Rx Acetaminophen [Acetaminophen TAB] 500 mg PO Q8H PRN #12 tablet 11/21/18 Unknown Rx Doxycycline Hyclate [Doxycycline 100 mg PO Q12HR 10 Days #20 tab 12/09/18 Unknown Rx Hyclate TAB] methylPREDNISolone [Medrol 4MG 4 mg PO DAILY 6 Days #1 tab.ds.pk 12/09/18 Unknown Rx DOSEPAK (21 tabs)] Benzonatate [Tessalon Perles] 100 mg PO Q8HR #10 capsule 12/26/18 Unknown Rx Fluticasone [Flonase] 1 spray NS QDAY #1 bottle 12/26/18 Unknown Rx predniSONE [Deltasone] 20 mg PO QDAY #5 tab 12/26/18 Unknown Rx Azithromycin [Zithromax Z-RENETTA] 250 mg PO DAILY #5 tablet 01/08/19 Unknown Rx predniSONE [Deltasone] 40 mg PO QDAY 3 Days #8 tab 01/08/19 Unknown Rx Dicyclomine [Bentyl] 20 mg PO QID #30 tablet 01/27/19 Unknown Rx HYDROcodone/APAP 5-325 [[place] 1 - 2 each PO Q6HR PRN #14 tablet 01/27/19 Unknow n Rx 5/325] Ondansetron [Zofran ODT TAB] 8 mg PO Q8HR #20 tab.rapdis 01/27/19 Unknown Rx Ibuprofen [Motrin] 600 mg PO Q8H PRN #24 tablet 02/12/19 Unknown Rx Methocarbamol [Robaxin] 500 mg PO Q8H PRN #15 tablet 02/12/19 Unknown Rx traMADoL [Ultram] 50 mg PO Q6HR PRN #12 tablet 02/12/19 Unknown Rx predniSONE [Deltasone] 10 mg PO BID 3 Days #6 tab 04/08/19 Unknown Rx Acetaminophen [Acetaminophen ER] 650 mg PO PRN PRN #40 tab 04/30/19 Unknown Rx cephALEXin [Keflex] 500 mg PO Q12HR #10 cap 04/30/19 Unknown Rx Rash Exam - Exam General: Vital signs noted. No distress. Alert and acting appropriately. HEENT: No Periorbital Edema, No Conjuctival Injection, No Chemosis, No Perioral Edema, No Tongue Edema, No Uvular Edema, No Compromised Airway, No Drooling Lungs: Yes Good Air Exchange (Normal Breath Sounds), No Wheezes, No Ronchi, No Stridor, No Cough, No Labored Respirations, No Retractions, No Use of Accessory Muscles, No Other Abnormal Lung Sounds Heart: Yes Regular, No Murmur Skin: Yes Tenderness, Yes Erythema, No Urticarial Rash, No Maculopapular Rash, No Morbilliform rash, No Bulla(e), No Excoriations, No Weeping, No Edema, No Encrustations, No Other Other: Positive: Abdomen Normal, Neurologic Normal, Musculoskeletal Normal ED Course Vital Signs 04/30/19 04/30/19 04/30/19 06:15 07:45 07:47 Temperature 98.9 F Pulse Rate 72 66 Respiratory 19 18 20 Rate Blood Pressure 115/49 O2 Sat by Pulse 94 100 100 Oximetry ED Medical Decision Making - Medical Decision Making 58-year-old female presents with cellulitis of the right thigh We will treat with antibiotics. Patient received 60 prednisone in ED. Vital signs are normal patient is in no acute distress or respiratory distress. Critical care attestation.: If time is entered above; I have spent that time in minutes in the direct care of this critically ill patient, excluding procedure time. ED Disposition Clinical Impression: Cellulitis of right thigh, Insect bite Disposition: - TO HOME OR SELFCARE Is pt being admited?: No Does the pt Need Aspirin: No Condition: Stable Instructions: Insect Bite or Sting (ED) Additional Instructions: Make sure to follow up with the primary care physician as discussed. Take all your medications as you've been prescribed. If you have any worsening symptoms or develop new symptoms please return to ED immediately. Prescriptions: Acetaminophen [Acetaminophen ER] 650 mg PO PRN PRN #40 tab PRN Reason: Pain, Mild (1-3) cephALEXin [Keflex] 500 mg PO Q12HR #10 cap Referrals: PRIMARY CARE, [Primary Care Provider] - 3-5 Days [facility] [Outside] - 3-5 Days [facility] [Outside] - 3-5 Days Forms: Accompanied Note, Work/School Release Form(ED) Time of Disposition: 07:54
== END 2019-04-30 08:19 | disposition home or self-care (01) ==
LOC: ED 06:05
DX: S70.361A Insect bite (nonvenomous), right thigh, initial encounter (principal); L03.115 Cellulitis of right lower limb; I50.9 Heart failure, unspecified; K21.9 Gastro-esophageal reflux disease without esophagitis; J44.9 Chronic obstructive pulmonary disease, unspecified; F17.200 Nicotine dependence, unspecified, uncomplicated; Z98.890 Other specified postprocedural states; Z88.8 Allergy status to other drugs, medicaments and biological substances; W57.XXXA Bitten or stung by nonvenomous insect and other nonvenomous arthropods, initial encounter; Y93.89 Activity, other specified; Y92.89 Other specified places as the place of occurrence of the external cause; Y99.8 Other external cause status
CPT/HCPCS: 99283; J7512

== ENCOUNTER 2019-06-02 04:26 | Observation (INO) | payer MEDICARE ==
--- NOTE | 2019-06-02 06:58 | Emergency Department Report ---
HPI - General Chief Complaint: Abdominal Pain Time Seen by Provider: 06/02/19 06:35 - HPI HPI: 58-year-old -[place] female presents to the emergency department with complaint of upper to middle abdominal pain, and nausea without vomiting, for the past 24 hours. The patient also says that she has been coughing and coughed up some blood, but denies any shortness of breath or chest pains. Patient has a history of gallstones, umbilical hernia. She also has a history of asthma, CHF, COPD on 2 L nasal cannula, fibroids, mitral valve prolapse, A. fib on anticoagulation. Patient previously had seen Dr. Huston for primary care but he retired and she does not currently have a PCP. No recent travel or sick contacts at home. She denies any fever, lower extremity swelling. ED Past Medical Hx - Past Medical History Previous Medical History?: Yes Hx Hypertension: No Hx CVA: No Hx Heart Attack/AMI: No Hx Congestive Heart Failure: Yes Hx Diabetes: No Hx Deep Vein Thrombosis: No Hx Pulmonary Embolism: No Hx GERD: Yes Hx Liver Disease: No Hx Renal Disease: No Hx Sickle Cell Disease: No Hx Arthritis: No Hx Headaches / Migraines: No Hx Seizures: No Hx Kidney Stones: No Hx Psychiatric Treatment: No Hx Asthma: Yes Hx COPD: (O2-2lpm continuously) Hx Tuberculosis: No Hx Dementia: No Hx HIV: No Additional medical history: gall stones, fibroids, MVP, myomectomy. A. fib with rvr - Surgical History Hx Coronary Stent: No Hx Open Heart Surgery: Yes (Mitral and Tricuspid valve replacement/surgery (based on cxr) 05/2018) Hx Pacemaker: No Hx Internal Defibrillator: No Hx Cholecystectomy: No Hx Appendectomy: No Hx Breast Surgery: No Additional Surgical History: fibroid removal - Social History Smoking Status: Current Every Day Smoker Substance Use Type: None - Medications Home Medications: Home Medications Medication Instructions Recorded Confirmed Last Taken Type Furosemide [Lasix TAB] 40 mg PO QDAY 04/25/18 06/02/19 10/07/18 History Potassium Chloride [K-Dur] 20 meq PO QDAY 04/25/18 06/02/19 10/07/18 History Arformoterol Nebu [Brovana Nebu] 15 mcg IH BID 08/08/19 03/26/20 08/01/19 H istory Aspirin EC 81 mg PO DAILY 10/14/18 06/02/19 10/07/18 History Fluticasone/Salmeterol [Advair 1 puff PO BID PRN 10/14/18 06/02/19 10/06/18 History Diskus 250-50 mcg] Pantoprazole [Protonix TAB] 40 mg PO DAILY 10/14/18 06/02/19 10/07/18 History Proventil Hfa 2 puff INHALATION Q4H PRN 10/14/18 06/02/19 10/07/18 History Warfarin [Coumadin] 1 mg PO DAILY 10/14/18 06/02/19 10/07/18 History Fluticasone [Flonase] 1 spray NS QDAY #1 bottle 12/26/18 06/02/19 Unknown Rx ED Review of Systems ROS: Stated complaint: STOMACH PAIN,NAUSEA Other details as noted in HPI Comment: All other systems reviewed and negative Constitutional: denies: chills, fever Eyes: denies: eye pain, vision change ENT: denies: ear pain, throat pain Respiratory: cough. denies: shortness of breath Cardiovascular: denies: chest pain, edema Gastrointestinal: abdominal pain, nausea. denies: vomiting, diarrhea, constipation Genitourinary: denies: dysuria, discharge Musculoskeletal: denies: back pain, arthralgia Skin: denies: rash, lesions Neurological: denies: headache, weakness Physical Exam - Physical Exam Physical Exam: GENERAL: The patient is well-developed well-nourished. HENT: Normocephalic. Atraumatic. Patient has moist mucous membranes. EYES: Extraocular motions are intact. NECK: Supple. Trachea is midline. CHEST/LUNGS: Clear to auscultation. No cough heard during examination. No tachypnea or accessory muscle use. There is no respiratory distress noted. HEART/CARDIOVASCULAR: Regular. There is no tachycardia. There is no murmur. ABDOMEN: Abdomen is soft. Upper abdominal tenderness to palpation. No guarding. There is a reducible umbilical hernia. Patient has normal bowel sounds. There is no abdominal distention. SKIN: Skin is warm and dry. NEURO: The patient is awake, alert, and oriented. The patient is cooperative. The patient has no focal neurologic deficits. Normal speech. MUSCULOSKELETAL: There is no tenderness or deformity. There is no evidence of acute injury. ED Course - Consultations Consultation #1: 06/02/19 09:34 I spoke with the assistant associate professor on-call, Dr. Pierre, who is going to place the order for an MRCP. The patient will be admitted to the hospitalist service and GI will consult. ED Medical Decision Making - Lab Data Result diagrams: 06/02/19 06:55 06/02/19 07:44 - Radiology Data Radiology results: report reviewed, image reviewed interpreted by me: Chest x-ray does not show any acute process. There are no pleural effusions, obvious pneumonia and there is no pneumothorax. Abdominal x-ray shows nonspecific nonobstructive bowel gas. ULTRASOUND ABDOMEN, COMPLETE INDICATION: Abdominal pain for one day. COMPARISON: 01/27/2019] upper quadrant ultrasound. FINDINGS: Pancreas: No significant abnormality. Abdominal Aorta: No significant abnormality. IVC: No significant abnormality. Liver: The liver measures 15.3 cm in length. The liver parenchyma is mildly echogenic suggesting mild fatty infiltration. No focal liver lesion is detected.. Normal hepatopedal blood flow in the main portal vein. Gallbladder: The gallbladder is partially contracted and contains multiple shadowing gallstones.. Bile ducts: Measurements of the common bile duct range from 5.7-8.0 mm. No obvious intrahepatic ductal dilatation is appreciated.. Kidneys: Right: 10.1 cm in length. No significant abnormality. The left kidney is obscured. Spleen: Spleen is unremarkable measuring 8.9 cm. Free fluid: None. Additional Findings: None. IMPRESSION: Cholelithiasis but no convincing evidence for acute cholecystitis. The common bile duct is mildly dilated on today's exam. Choledocholithiasis cannot be excluded. Please correlate with the patient's c linical presentation. Mild hepatic steatosis. The left kidney is obscured. - Medical Decision Making Patient presents with some acute upper abdominal pain and nausea. Labs show some elevated LFTs of about 105 each. Chest and abdominal x-ray does not show any acute process. Abdominal ultrasound shows cholelithiasis and some concern for choledocholithiasis secondary to dilated common bile duct. Gastroenterology was contacted and consulted and has placed an order for an MRCP. Patient will be admitted to the hospital for further evaluation and treatment and was accepted for admission by the hospitalist service. After the patient was admitted to the hospital and a bed request was placed, the patient started saying that she is unwilling to have the MRCP and cannot stay in the hospital as she has "things to do." I explained to the patient that she may have choledocholithiasis, as well as other possibilities and that she needs further evaluation. I also explained that if the patient leaves at this time that it may lead to worsening of her liver enzymes, worsening of her abdominal pain, nausea and vomiting, could potentially lead to end organ damage, sepsis or even . The patient is awake, alert, oriented and has a normal decision-making capacity. Despite understanding these risks she has still decided to leave AGAINST MEDICAL ADVICE. She has also been told that if she changes her mind about admission and further evaluation, that she will be welcome back to the emergency department for reevaluation at any time, or if she has any acute distress. - Differential Diagnosis Cholelithiasis, cholecystitis, choledocholithiasis, pancreatitis Critical Care Time: No Critical care attestation.: If time is entered above; I have spent that time in minutes in the direct care of this critically ill patient, excluding procedure time. ED Disposition Clinical Impression: Choledocholithiasis, Elevated liver enzymes Cholelithiasis Qualifiers: Cholelithiasis location: gallbladder Cholecystitis presence: without cholecystitis Biliary obstruction: with biliary obstruction Qualified Code(s): K80.21 - Calculus of gallbladder without cholecystitis with obstruction Disposition: DC-07 LEFT AGAINST MED ADVICE Is pt being admited?: No Condition: Fair Time of Disposition: 11:24
[2019-06-02 07:14] LABS: Basophils # (Auto) 0.1 K/mm3 (0.0-0.1); Basophils % (Auto) 0.8 % (0.0-1.8); Eosinophils # (Auto) 0.2 K/mm3 (0.0-0.4); Eosinophils % (Auto) 2.8 % (0.0-4.3); Hematocrit 38.9 % (30.3-42.9); Hemoglobin 12.7 gm/dl (10.1-14.3); Lymphocytes # (Auto) 2.1 K/mm3 (1.2-5.4); Lymphocytes % (Auto) 26.5 % (13.4-35.0); Mean Corpuscular HGB Conc 33 % (30-34); Mean Corpuscular Volume 83 fl (79-97); Monocytes # (Auto) 0.7 K/mm3 (0.0-0.8); Monocytes % (Auto) 9.2 % (0.0-7.3); Platelet Count 374 K/mm3 (140-440); Red Cell Distribution Width 17.2 % (13.2-15.2)
--- NOTE | 2019-06-02 07:19 | XRay Report ---
ABDOMEN 3 VIEW(S) INDICATION / CLINICAL INFORMATION: abd pain, Cough. COMPARISON: 01/27/19 FINDINGS: TUBES / LINES: None. BOWEL GAS PATTERN: No significant abnormality. FREE AIR / EXTRALUMINAL GAS: None seen. ADDITIONAL FINDINGS: No significant additional findings. LUNGS: Visualized lungs show no significant abnormality. IMPRESSION: 1. No acute findings. No change. Signer Name: Joya Sun MD Signed: 06/02/2019 7:15 AM Workstation Name: [id number]
[2019-06-02 07:32] LABS: INR 2.15 (0.87-1.13)
[2019-06-02 07:33] LABS: Partial Thromboplastin Time 44.9 Sec. (24.2-36.6)
[2019-06-02 07:38] LABS: Hemolysis Index 406
[2019-06-02 07:41] LABS: Blood Urea Nitrogen TNR mg/dL (7-17)
[2019-06-02 07:42] LABS: Alanine Aminotransferase TNR units/L (7-56); Albumin TNR g/dL (3.9-5); BUN/Creatinine Ratio TNR; Calcium TNR mg/dL (8.4-10.2)
--- NOTE | 2019-06-02 07:58 | Ultrasound Report ---
ULTRASOUND ABDOMEN, COMPLETE INDICATION: Abdominal pain for one day. COMPARISON: 01/27/2019] upper quadrant ultrasound. FINDINGS: Pancreas: No significant abnormality. Abdominal Aorta: No significant abnormality. IVC: No significant abnormality. Liver: The liver measures 15.3 cm in length. The liver parenchyma is mildly echogenic suggesting mil d fatty infiltration. No focal liver lesion is detected.. Normal hepatopedal blood flow in the main p ortal vein. Gallbladder: The gallbladder is partially contracted and contains multiple shadowing gallstones.. Bile ducts: Measurements of the common bile duct range from 5.7-8.0 mm. No obvious intrahepatic ducta l dilatation is appreciated.. Kidneys: Right: 10.1 cm in length. No significant abnormality. The left kidney is obscured. Spleen: Spleen is unremarkable measuring 8.9 cm. Free fluid: None. Additional Findings: None. IMPRESSION: Cholelithiasis but no convincing evidence for acute cholecystitis. The common bile duct is mildly dil ated on today's exam. Choledocholithiasis cannot be excluded. Please correlate with the patient's cli nical presentation. Mild hepatic steatosis. The left kidney is obscured. Signer Name: Ruslan Soliz Jr, MD Signed: 06/02/2019 7:53 AM Workstation Name: [id number]
[2019-06-02 08:01] VITALS: BP 131/42
[2019-06-02 08:31] LABS: Alanine Aminotransferase 103 units/L (7-56); Albumin 3.9 g/dL (3.9-5); BUN/Creatinine Ratio 10; Blood Urea Nitrogen 11 mg/dL (7-17); Calcium 9.4 mg/dL (8.4-10.2); Hemolysis Index 25
[2019-06-02] MEDS ORDERED: PIPERACIL/TAZOBACTA 4.5/NS 100 4.5 GM/100 ML VIAL IV ONE (09:21)
[2019-06-02] MEDS ORDERED: ONDANSETRON 4 MG/2 ML INJ IV ONE (09:21)
--- NOTE | 2019-06-02 10:27 | History and Physical Report ---
History of Present Illness Date of examination: 06/02/19 Chief complaint: Patient left AMA Medications and Allergies Allergies Allergy/AdvReac Type Severity Reaction Status Date / Time Iodinated Contrast Media Allergy Swelling Verified 06/02/19 10:30 morphine Allergy Rash Verified 06/02/19 10:30 Home Medications Medication Instructions Recorded Confirmed Last Taken Type Furosemide [Lasix TAB] 40 mg PO QDAY 04/25/18 06/02/19 10/07/18 History Potassium Chloride [K-Dur] 20 meq PO QDAY 04/25/18 06/02/19 10/07/18 History Arformoterol Nebu [Brovana Nebu] 15 mcg IH BID 10/14/18 06/02/19 10/07/18 History Aspirin EC 81 mg PO DAILY 10/14/18 06/02/19 10/07/18 History Fluticasone/Salmeterol [Advair 1 puff PO BID PRN 10/14/18 06/02/19 10/06/18 History Diskus 250-50 mcg] Pantoprazole [Protonix TAB] 40 mg PO DAILY 10/14/18 06/02/19 10/07/18 History Proventil Hfa 2 puff INHALATION Q4H PRN 10/14/18 06/02/19 10/07/18 History Warfarin [Coumadin] 1 mg PO DAILY 10/14/18 06/02/19 10/07/18 History Fluticasone [Flonase] 1 spray NS QDAY #1 bottle 12/26/18 06/02/19 Unknown Rx Exam - Constitutional Vitals: Temp Pulse Resp BP Pulse Ox 98.5 F 61 16 131/42 96 06/02/19 07:59 06/02/19 07:59 06/02/19 07:59 06/02/19 07:59 06/02/19 07:59 Results - Labs CBC & Chem 7: 06/02/19 06:55 06/02/19 07:44 Labs: Abnormal lab results 06/02/19 06/02/19 06/02/19 Range/Units 06:55 07:10 07:44 MCH 27 L (28-32) pg RDW 17.2 H (13.2-15.2) % [place] % (Auto) 9.2 H (0.0-7.3) % PT 24.4 H (12.2-14.9) Sec. INR 2.15 H (0.87-1.13) APTT 44.9 H (24.2-36.6) Sec. Glucose 121 H (65-100) mg/dL AST 108 H (5-40) units/L ALT 103 H (7-56) units/L
[2019-06-02] MEDS ORDERED: MORPHINE 2 MG/1 ML INJ IV PRN (10:30)
[2019-06-02] MEDS ORDERED: SODIUM CHLORIDE 0.9% 1000 ML 1,000 ML IV SCH (10:30)
[2019-06-02] MEDS ORDERED: PIPERACILLIN/TAZOBACTAM 3.375 3.375 GM/50 ML BAG IV SCH (14:00)
--- NOTE | 2019-06-02 18:21 | Event Note ---
Date: 06/02/19 Patient left AMA
[2019-06-02] MEDS ORDERED: ENOXAPARIN 40 MG/0.4 ML INJ SUB-Q SCH (22:00)
[2019-06-02] MEDS ORDERED: AMIODARONE 200 MG TAB PO SCH (22:00)
[2019-06-03] MEDS ORDERED: PANTOPRAZOLE 40 MG INJ IV SCH (10:00)
== END 2019-06-02 11:09 | disposition left against medical advice (07) ==
LOC: ED 04:26 → 4A 10:07
PROVIDERS: ADMIT Internal Medicine; ATTEND Internal Medicine
DX: K80.51 Calculus of bile duct without cholangitis or cholecystitis with obstruction (principal); R74.8 Abnormal levels of other serum enzymes; I50.9 Heart failure, unspecified; J44.9 Chronic obstructive pulmonary disease, unspecified; F17.200 Nicotine dependence, unspecified, uncomplicated; Z95.2 Presence of prosthetic heart valve; Z79.899 Other long term (current) drug therapy
CPT/HCPCS: 36415; 74022; 76700; 80053; 83690; 83880; 85025; 85610; 85730; 99285; G0378

== ENCOUNTER 2019-12-25 22:18 | Emergency (ER) | payer MEDICARE ==
--- NOTE | 2019-12-26 00:21 | XRay Report ---
CHEST 2 VIEWS INDICATION / CLINICAL INFORMATION: Shortness of breath, cough, chills for 2 days. COMPARISON: 06/02/2019 FINDINGS: SUPPORT DEVICES: None. HEART / MEDIASTINUM: Changes of prior median sternotomy and valve replacement are noted LUNGS / PLEURA: No significant pulmonary or pleural abnormality. .No pneumothorax. ADDITIONAL FINDINGS: No significant additional findings. IMPRESSION: 1. No acute findings. Signer Name: Beau Carr MD Signed: 12/26/2019 12:16 AM Workstation Name: [id number]
[2019-12-26] MEDS ORDERED: methylPREDNISolone Sod Succinate 125 MG/2 ML INJ IV ONE (01:21)
[2019-12-26] MEDS ORDERED: IPRATROPIUM 0.02% NEBU 2.5 ML IH ONE (01:22)
[2019-12-26] MEDS ORDERED: MAGNESIUM SULFATE 2 GM/50 ML BAG IV ONE (01:22)
[2019-12-26] MEDS ORDERED: ALBUTEROL 2.5 MG/3 ML NEBU IH ONE ×2 (01:22→04:21)
--- NOTE | 2019-12-26 01:36 | Emergency Department Report ---
HPI - General Chief Complaint: Dyspnea/Respdistress Time Seen by Provider: 12/26/19 01:10 - HPI HPI: This is a 59-year-old female who presents to the emergency department with complaint of shortness of breath and a mixed dry and productive cough, that has been going on since yesterday evening. She denies any fever, chest pain, lower extremity swelling, nausea, vomiting or diaphoresis. The patient has a history of COPD for which she is on home oxygen at 2 L via nasal cannula. She also has a past medical history of CHF, GERD, mitral valve prolapse, atrial fibrillation with RVR on Coumadin anticoagulation, previous mitral and tricuspid valve repla cement. She does not have a primary care physician. Her military professional is Dr. Dominguez and pharmacy informatics specialist is Dr. Kirkpatrick. The patient has been taking/using her albuterol inhaler and nebulizer without any relief. Her symptoms worsen with exertion. No known alleviating factors. No recent travel or sick contacts at home. No known exposure to anyone with COVID-19. ED Past Medical Hx - Past Medical History Previous Medical History?: Yes Hx Hypertension: No Hx CVA: No Hx Heart Attack/AMI: No Hx Congestive Heart Failure: Yes Hx Diabetes: No Hx Deep Vein Thrombosis: No Hx Pulmonary Embolism: No Hx GERD: Yes Hx Liver Disease: No Hx Renal Disease: No Hx Sickle Cell Disease: No Hx Arthritis: No Hx Headaches / Migraines: No Hx Seizures: No Hx Kidney Stones: No Hx Psychiatric Treatment: No Hx Asthma: Yes Hx COPD: (O2-2lpm continuously) Hx Tuberculosis: No Hx Dementia: No Hx HIV: No Additional medical history: gall stones, fibroids, MVP, myomectomy. A. fib with rvr - Surgical History Past Surgical History?: Yes Hx Coronary Stent: No Hx Open Heart Surgery: Yes (Mitral and Tricuspid valve replacement/surgery (based on cxr) 05/2018) Hx Pacemaker: No Hx Internal Defibrillator: No Hx Cholecystectomy: No Hx Appendectomy: No Hx Breast Surgery: No Additional Surgical History: fibroid removal - Social History Smoking Status: Former Smoker Substance Use Type: None - Medications Home Medications: Home Medications Medication Instructions Recorded Confirmed Last Taken Type Furosemide [Lasix TAB] 40 mg PO QDAY 04/25/18 06/02/19 10/07/18 History Potassium Chloride [K-Dur] 20 meq PO QDAY 04/25/18 06/02/19 10/07/18 History Arformoterol Nebu [Brovana Nebu] 15 mcg IH BID 10/14/18 06/02/19 10/07/18 History Aspirin EC 81 mg PO DAILY 10/14/18 06/02/19 10/07/18 History Fluticasone/Salmeterol [Advair 1 puff PO BID PRN 10/14/18 06/02/19 10/06/18 History Diskus 250-50 mcg] Pantoprazole [Protonix TAB] 40 mg PO DAILY 10/14/18 06/02/19 10/07/18 History Proventil Hfa 2 puff INHALATION Q4H PRN 10/14/18 06/02/19 10/07/18 History Warfarin [Coumadin] 1 mg PO DAILY 10/14/18 06/02/19 10/07/18 History Fluticasone [Flonase] 1 spray NS QDAY #1 bottle 12/26/18 06/02/19 Unknown Rx ALBUTEROL NEB's [Proventil 0.083% 2.5 mg IH Q6H PRN #1 box 12/26/19 Unknown Rx NEBS] Albuterol Mdi (or & Nicu Only) 2 puff IH QID PRN #8.5 gram 12/26/19 Unknown Rx [ProAir HFA Inhaler] predniSONE [Deltasone] 20 mg PO BID #8 tab 12/26/19 Unknown Rx ED Review of Systems ROS: Stated complaint: SOB/COUGH Other details as noted in HPI Comment: All other systems reviewed and negative Constitutional: denies: chills, fever Eyes: denies: eye pain, vision change ENT: denies: ear pain, throat pain Respiratory: cough, shortness of breath, wheezing Cardiovascular: denies: chest pain, edema Gastrointestinal: denies: abdominal pain, vomiting Genitourinary: denies: dysuria, discharge Musculoskeletal: denies: back pain, arthralgia Skin: denies: rash, lesions Neurological: denies: headache, weakness Physical Exam - Physical Exam Vital Signs: Vital Signs 12/25/19 12/26/19 23:41 01:12 Temperature 98.1 F 97.7 F Pulse Rate 87 82 Respiratory 18 18 Rate Blood Pressure 138/62 Blood Pressure 145/59 [Right] O2 Sat by Pulse 96 93 Oximetry Physical Exam: GENERAL: The patient is well-developed well-nourished. HENT: Normocephalic. Atraumatic. Patient has moist mucous membranes. EYES: Extraocular motions are intact. NECK: Supple. Trachea is midline. CHEST/LUNGS: Mild wheezing throughout the chest. No tachypnea or accessory muscle use. No cough heard during examination. There is no respiratory distress noted. HEART/CARDIOVASCULAR: Regular. There is no tachycardia. There is no murmur. ABDOMEN: Abdomen is soft, nontender. Patient has normal bowel sounds. SKIN: Skin is warm and dry. NEURO: The patient is awake, alert, and oriented. The patient is cooperative. The patient has no focal neurologic deficits. Normal speech. MUSCULOSKELETAL: There is no tenderness or deformity. ED Course Vital Signs 12/25/19 12/26/19 23:41 01:12 Temperature 98.1 F 97.7 F Pulse Rate 87 82 Respiratory 18 18 Rate Blood Pressure 138/62 Blood Pressure 145/59 [Right] O2 Sat by Pulse 96 93 Oximetry - Reevaluation(s) Reevaluation #1: 12/26/19 06:00 Lab Results 12/26/19 12/26/19 12/26/19 Range/Units 01:32 01:32 01:32 WBC 9.4 (4.5-11.0) K/mm3 RBC 4.59 (3.65-5.03) M/mm3 Hgb 12.8 (10.1-14.3) gm/dl Hct 37.9 (30.3-42.9) % MCV 83 (79-97) fl MCH 28 (28-32) pg MCHC 34 (30-34) % RDW 17.6 H (13.2-15.2) % Plt Count 310 (140-440) K/mm3 Lymph % (Auto) 23.4 (13.4-35.0) % [place] % (Auto) 9.9 H (0.0-7.3) % Eos % (Auto) 2.1 (0.0-4.3) % Baso % (Auto) 1.3 (0.0-1.8) % Lymph # (Auto) 2.2 (1.2-5.4) K/mm3 [place] # (Auto) 0.9 H (0.0-0.8) K/mm3 Eos # (Auto) 0.2 (0.0-0.4) K/mm3 Baso # (Auto) 0.1 (0.0-0.1) K/mm3 Seg Neutrophils % 63.3 (40.0-70.0) % Seg Neutrophils # 6.0 (1.8-7.7) K/mm3 PT 25.5 H (12.2-14.9) Sec. INR 2.27 H (0.87-1.13) APTT 53.3 H (24.2-36.6) Sec. Sodium 138 (137-145) mmol/L Potassium 4.0 (3.6-5.0) mmol/L Chloride 99.7 (98-107) mmol/L Carbon Dioxide 27 (22-30) mmol/L Anion Gap 15 mmol/L BUN 11 (7-17) mg/dL Creatinine 1.0 (0.6-1.2) mg/dL Estimated GFR > 60 ml/min BUN/Creatinine Ratio 11 % Glucose 90 (65-100) mg/dL Calcium 9.3 (8.4-10.2) mg/dL NT-Pro-B Natriuret Pep 273.7 (0-900) pg/mL ED Medical Decision Making - Lab Data Result diagrams: 12/26/19 01:32 12/26/19 01:32 - EKG Data -: EKG Interpreted by Wi EKG shows normal: sinus rhythm, axis, intervals, QRS complexes, ST-T waves Rate: normal - EKG Data When compared to previous EKG there are: previous EKG unavailable Interpretation: normal EKG - Radiology Data Radiology results: image reviewed interpreted by me: Chest x-ray does not show any acute process. There are no pleural effusions, obvious pneumonia and there is no pneumothorax. No significant cardiomegaly. - Medical Decision Making This patient presents to the emergency department with a complaint of shortness of breath, wheezing and coughing since last night. On examination she has some mild wheezing throughout the chest but does not appear in any respiratory or acute distress. EKG did not show any morphology consistent with ST elevation [place] or any significant dysrhythmia. Chest x-ray does not show any pneumonia, pleural effusions, pneumothorax, focal consolidation, or any other acute process. Patient's labs have been unremarkable including CBC, metabolic panel, BNP level. Patient's INR is at about 2.3 and is therefore therapeutic and anticoagulation of her paroxysmal atrial fibrillation, and also makes it very unlikely that the patient has developed any acute pulmonary embolism. She was given steroids, magnesium and 2 different rounds of breathing treatments. Upon reevaluation she is feeling greatly improved. Her vital signs have been reassuring including being afebrile. The patient has good outpatient follow-up with pulmonology. She will be given a prescription for steroids and a refill of her albuterol inhaler and nebulizer treatments. She has been instructed to return to the emergency department with any worsening of her symptoms or with any acute distress. Critical Care Time: No Critical care attestation.: If time is entered above; I have spent that time in minutes in the direct care of this critically ill patient, excluding procedure time. ED Disposition Clinical Impression: COPD exacerbation, Shortness of breath Disposition: TO HOME OR SELFCARE Is pt being admited?: No Condition: Stable Instructions: Chronic Obstructive Pulmonary Disease (ED) Additional Instructions: Please follow-up with your primary care physician and pharmacy informatics specialist. Return to the emergency department with any worsening of your symptoms, new or concerning symptoms not addressed during this current emergency department visit, or with any acute distress. Prescriptions: predniSONE [Deltasone] 20 mg PO BID #8 tab Albuterol Mdi (or & Nicu Only) [ProAir HFA Inhaler] 2 puff IH QID PRN #8.5 gram PRN Reason: Shortness Of Breath ALBUTEROL NEB's [Proventil 0.083% NEBS] 2.5 mg IH Q6H PRN #1 box PRN Reason: Wheezing Referrals: PRIMARY CARE, [Primary Care Provider] - 2-3 Days PHILIP KIRKPATRICK MD [Staff Physician] - 2-3 Days Time of Disposition: 05:53
[2019-12-26 01:45] LABS: Basophils # (Auto) 0.1 K/mm3 (0.0-0.1); Basophils % (Auto) 1.3 % (0.0-1.8); Eosinophils # (Auto) 0.2 K/mm3 (0.0-0.4); Eosinophils % (Auto) 2.1 % (0.0-4.3); Hemoglobin 12.8 gm/dl (10.1-14.3); Lymphocytes # (Auto) 2.2 K/mm3 (1.2-5.4); Lymphocytes % (Auto) 23.4 % (13.4-35.0); Monocytes # (Auto) 0.9 K/mm3 (0.0-0.8); Monocytes % (Auto) 9.9 % (0.0-7.3)
[2019-12-26 01:52] LABS: Hematocrit 37.9 % (30.3-42.9); Mean Corpuscular HGB Conc 34 % (30-34); Mean Corpuscular Volume 83 fl (79-97); Platelet Count 310 K/mm3 (140-440); Red Blood Count 4.59 M/mm3 (3.65-5.03); Red Cell Distribution Width 17.6 % (13.2-15.2)
[2019-12-26 01:57] LABS: INR 2.27 (0.87-1.13)
[2019-12-26 01:58] LABS: BUN/Creatinine Ratio 11; Blood Urea Nitrogen 11 mg/dL (7-17); Calcium 9.3 mg/dL (8.4-10.2); Hemolysis Index 5; Partial Thromboplastin Time 53.3 Sec. (24.2-36.6)
[2019-12-26 06:42] VITALS: BP 131/60
== END 2019-12-26 06:44 | disposition home or self-care (01) ==
LOC: ED 22:18
DX: J44.1 Chronic obstructive pulmonary disease with (acute) exacerbation (principal); I50.9 Heart failure, unspecified; K21.9 Gastro-esophageal reflux disease without esophagitis; Z95.818 Presence of other cardiac implants and grafts; Z79.899 Other long term (current) drug therapy; Z91.040 Latex allergy status; Z88.6 Allergy status to analgesic agent
CPT/HCPCS: 36415; 71046; 80048; 83880; 85025; 85610; 85730; 93005; 94640; 96365; 96375; 99284; J2930; J3475; 94644

== ENCOUNTER 2020-03-25 14:15 | Emergency (ER) | payer MEDICARE ==
--- NOTE | 2020-03-25 15:01 | Event Note ---
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 Further treatment and workup at subsequent clinical providers discretion. Patient/guardian urged not to elope from the ED as their condition may be serious if not clinically assessed and managed. Initial orders include: labs, CXR, EKG
--- NOTE | 2020-03-25 15:27 | XRay Report ---
CHEST PA AND LATERAL VIEWS INDICATION: cough, CP, SOB. COMPARISON: 12/26/2019 FINDINGS: Support devices: None. Heart: Postsurgical changes with valve replacement, unchanged. Lungs/Pleura: No acute pulmonary or pleural findings. IMPRESSION: 1. No significant change. Signer Name: Calvin Hayward MD Signed: 03/25/2020 3:23 PM Workstation Name: [id number]
[2020-03-25 15:54] LABS: Alanine Aminotransferase 16 units/L (7-56); Albumin 4.2 g/dL (3.9-5); BUN/Creatinine Ratio 12; Basophils # (Auto) 0.1 K/mm3 (0.0-0.1); Basophils % (Auto) 0.8 % (0.0-1.8); Blood Urea Nitrogen 12 mg/dL (7-17); Calcium 9.3 mg/dL (8.4-10.2); Eosinophils # (Auto) 0.1 K/mm3 (0.0-0.4); Eosinophils % (Auto) 1.6 % (0.0-4.3); Hematocrit 39.7 % (30.3-42.9); Hemoglobin 12.8 gm/dl (10.1-14.3); Hemolysis Index 32; Lymphocytes % (Auto) 42.6 % (13.4-35.0); Mean Corpuscular HGB Conc 32 % (30-34); Mean Corpuscular Volume 84 fl (79-97); Monocytes # (Auto) 0.7 K/mm3 (0.0-0.8); Monocytes % (Auto) 9.5 % (0.0-7.3); Platelet Count 318 K/mm3 (140-440); Red Blood Count 4.72 M/mm3 (3.65-5.03); Red Cell Distribution Width 16.4 % (13.2-15.2)
[2020-03-25 16:40] LABS: INR 2.36 (0.87-1.13)
--- NOTE | 2020-03-25 18:08 | Emergency Department Report ---
ED General Adult HPI - General Chief complaint: Upper Respiratory Infection Stated complaint: VOMIT BLOOD PUI?: No Time Seen by Provider: 03/25/20 14:51 Source: patient, RN notes reviewed, old records reviewed Mode of arrival: Ambulatory Limitations: No Limitations - History of Present Illness Initial comments: The patient was evaluated in the emergency department for symptoms described in the history of present illness. He/she was evaluated in the context of the global COVID-19 pandemic, which necessitated consideration that the patient might be at risk for infection with the virus that causes COVID-19. Institutional protocols and algorithms that pertain to the evaluation of patients at risk for COVID-19 are in a state of rapid change based on information released by regulatory bodies including the CDC and federal and state organizations. These policies and algorithms were followed during the patient's care in the emergency department. Please note that these policies, procedures and recommendations changed on a rapid basis. Pulmonology: Dr. Kirkpatrick Cardiology: Dr. Dominguez The patient is a 59-year-old female presenting to the ER with a complaint of intermittent coughing up blood. She states that she first coughed up blood 1 week ago, approximately 1 to 2 teaspoons. It was associated with nasal conges tion. It was also associated with nasal bleeding, which is now resolved. The patient denies headache, neck pain, exertional chest pain, vomiting, hematemesis, bright red blood per rectum, diaphoresis. She has chronic shortness of breath which is not a new, worsened or different. She saw her pediatric ophthalmologist earlier on this week for similar complaint, and was advised to participate in expectant management. She states that this morning, at approximately 930, she coughed up a few teaspoons of blood. Then, at approximately 12:00, she coughed up another few teaspoons of blood. This is now resolved. She denies loss of taste and loss of smell. She denies urinary symptoms. She denies other acute complaints at this time. -: Sudden Consistency: intermittent Improves with: none Worsens with: none Associated Symptoms: denies other symptoms, cough - Related Data Home Medications Medication Instructions Recorded Confirmed Last Taken Furosemide [Lasix TAB] 40 mg PO QDAY 04/25/18 06/02/19 10/07/18 Potassium Chloride [K-Dur] 20 meq PO QDAY 04/25/18 06/02/19 10/07/18 Arformoterol Nebu [Brovana Nebu] 15 mcg IH BID 10/14/18 06/02/19 10/07/18 Aspirin EC 81 mg PO DAILY 10/14/18 06/02/19 10/07/18 Fluticasone/Salmeterol [Advair 1 puff PO BID PRN 10/14/18 06/02/19 10/06/18 Diskus 250-50 mcg] Pantoprazole [Protonix TAB] 40 mg PO DAILY 10/14/18 06/02/19 10/07/18 Proventil Hfa 2 puff INHALATION Q4H PRN 10/14/18 06/02/19 10/07/18 Warfarin [Coumadin] 1 mg PO DAILY 10/14/18 06/02/19 10/07/18 Previous Rx's Medication Instructions Recorded Last Taken Type Fluticasone [Flonase] 1 spray NS QDAY #1 bottle 12/26/18 Unknown Rx ALBUTEROL NEB's [Proventil 0.083% 2.5 mg IH Q6H PRN #1 box 12/26/19 Unknown Rx NEBS] Albuterol Mdi (or & Nicu Only) 2 puff IH QID PRN #8.5 gram 12/26/19 Unknown Rx [ProAir HFA Inhaler] predniSONE [Deltasone] 20 mg PO BID #8 tab 12/26/19 Unknown Rx Allergies Allergy/AdvReac Type Severity Reaction Status Date / Time Iodinated Contrast Media Allergy Swelling Verified 06/02/19 10:30 morphine Allergy Rash Verified 06/02/19 10:30 ED Review of Systems ROS: Stated complaint: VOMIT BLOOD Other details as noted in HPI Constitutional: denies: fever ENT: epistaxis (Now resolved) Respiratory: cough. denies: wheezing Cardiovascular: denies: chest pain Gastrointestinal: denies: hematemesis, melena, hematochezia Musculoskeletal: denies: back pain Hematological/Lymphatic: denies: easy bleeding ED Past Medical Hx - Past Medical History Previous Medical History?: Yes Hx Hypertension: No Hx CVA: No Hx Heart Attack/AMI: No Hx Congestive Heart Failure: Yes Hx Diabetes: No Hx Deep Vein Thrombosis: No Hx Pulmonary Embolism: No Hx GERD: Yes Hx Liver Disease: No Hx Renal Disease: No Hx Sickle Cell Disease: No Hx Arthritis: No Hx Headaches / Migraines: No Hx Seizures: No Hx Kidney Stones: No Hx Psychiatric Treatment: No Hx Asthma: Yes Hx COPD: (O2-2lpm continuously) Hx Tuberculosis: No Hx Dementia: No Hx HIV: No Additional medical history: gall stones, fibroids, MVP, myomectomy. A. fib with rvr - Surgical History Past Surgical History?: Yes Hx Coronary Stent: No Hx Open Heart Surgery: Yes (Mitral and Tricuspid valve replacement/surgery (based on cxr) 05/2018) Hx Pacemaker: No Hx Internal Defibrillator: No Hx Cholecystectomy: No Hx Appendectomy: No Hx Breast Surgery: No Additional Surgical History: fibroid removal - Social History Smoking Status: Current Every Day Smoker Substance Use Type: Prescribed - Medications Home Medications: Home Medications Medication Instructions Recorded Confirmed Last Taken Type Furosemide [Lasix TAB] 40 mg PO QDAY 04/25/18 06/02/19 10/07/18 History Potassium Chloride [K-Dur] 20 meq PO QDAY 04/25/18 06/02/19 10/07/18 History Arformoterol Nebu [Brovana Nebu] 15 mcg IH BID 10/14/18 06/02/19 10/07/18 History Aspirin EC 81 mg PO DAILY 10/14/18 06/02/19 10/07/18 History Fluticasone/Salmeterol [Advair 1 puff PO BID PRN 10/14/18 06/02/19 10/06/18 History Diskus 250-50 mcg] Pantoprazole [Protonix TAB] 40 mg PO DAILY 10/14/18 06/02/19 10/07/18 History Proventil Hfa 2 puff INHALATION Q4H PRN 10/14/18 06/02/19 10/07/18 History Warfarin [Coumadin] 1 mg PO DAILY 10/14/18 06/02/19 10/07/18 History Fluticasone [Flonase] 1 spray NS QDAY #1 bottle 12/26/18 06/02/19 Unknown Rx ALBUTEROL NEB's [Proventil 0.083% 2.5 mg IH Q6H PRN #1 box 12/26/19 Unknown Rx NEBS] Albuterol Mdi (or & Nicu Only) 2 puff IH QID PRN #8.5 gram 12/26/19 Unknown Rx [ProAir HFA Inhaler] predniSONE [Deltasone] 20 mg PO BID #8 tab 12/26/19 Unknown Rx ED Physical Exam - General Limitations: No Limitations General appearance: alert, in no apparent distress - Head Head exam: Present: atraumatic, normocephalic - Eye Eye exam: Present: normal appearance, EOMI. Absent: nystagmus - ENT ENT exam: Present: normal exam, normal orophraynx, mucous membranes moist, normal external ear exam, other (There is no blood in oropharynx. There is no blood in the nostrils) - Neck Neck exam: Present: normal inspection, full ROM. Absent: tenderness, meningismus - Respiratory Respiratory exam: Present: normal lung sounds bilaterally, other (Anterior central chest keloid scar noted, consistent with surgical history). Absent: respiratory distress, wheezes, rales, rhonchi, stridor - Cardiovascular Cardiovascular Exam: Present: regular rate, normal rhythm, normal heart sounds. Absent: bradycardia, tachycardia, irregular rhythm, systolic murmur, diastolic murmur, rubs, gallop - GI/Abdominal GI/Abdominal exam: Present: soft. Absent: distended, tenderness, guarding, rebound, rigid, pulsatile mass - Extremities Exam Extremities exam: Present: normal inspection, full ROM, other (2+ pulses noted in the bilateral upper and lower extremities. There is no palpable cord. negative Homans sign. Muscular compartments are soft. The pelvis is stable.). Absent: pedal edema, calf tenderness - Back Exam Back exam: Present: normal inspection, full ROM. Absent: tenderness, CVA tenderness (R), CVA tenderness (L), paraspinal tenderness, vertebral tenderness - Neurological Exam Neurological exam: Present: alert, normal gait, other (No facial droop. Tongue midline. Extraocular movements intact bilaterally. Facial sensation intact to light touch in V1, V2, V3 distribution bilaterally. 5 and a 5 strength in 4 extremities. Sensation intact to light touch in 4 extremities.). Absent: motor sensory deficit - Psychiatric Psychiatric exam: Present: normal affect, normal mood - Skin Skin exam: Present: warm, dry, intact, normal color. Absent: rash ED Course Vital Signs 03/25/20 14:45 Temperature 98.6 F Pulse Rate 75 Respiratory 20 Rate Blood Pressure 145/57 O2 Sat by Pulse 99 Oximetry ED Medical Decision Making - Lab Data Result diagrams: 03/25/20 15:19 03/25/20 15:19 Vital Signs 03/25/20 14:45 Temperature 98.6 F Pulse Rate 75 Respiratory 20 Rate Blood Pressure 145/57 O2 Sat by Pulse 99 Oximetry Lab Results 03/25/20 03/25/20 03/25/20 Range/Units 15:19 15:19 15:19 WBC 7.1 (4.5-11.0) K/mm3 RBC 4.72 (3.65-5.03) M/mm3 Hgb 12.8 (10.1-14.3) gm/dl Hct 39.7 (30.3-42.9) % MCV 84 (79-97) fl MCH 27 L (28-32) pg MCHC 32 (30-34) % RDW 16.4 H (13.2-15.2) % Plt Count 318 (140-440) K/mm3 Lymph % (Auto) 42.6 H (13.4-35.0) % [place] % (Auto) 9.5 H (0.0-7.3) % Eos % (Auto) 1.6 (0.0-4.3) % Baso % (Auto) 0.8 (0.0-1.8) % Lymph # (Auto) 3.0 (1.2-5.4) K/mm3 [place] # (Auto) 0.7 (0.0-0.8) K/mm3 Eos # (Auto) 0.1 (0.0-0.4) K/mm3 Baso # (Auto) 0.1 (0.0-0.1) K/mm3 Seg Neutrophils % 45.5 (40.0-70.0) % Seg Neutrophils # 3.2 (1.8-7.7) K/mm3 PT 25.8 H (12.2-14.9) Sec. INR 2.36 H (0.87-1.13) APTT 42.0 H (24.2-36.6) Sec. Sodium 143 (137-145) mmol/L Potassium 4.2 (3.6-5.0) mmol/L Chloride 106.8 (98-107) mmol/L Carbon Dioxide 24 (22-30) mmol/L Anion Gap 16 mmol/L BUN 12 (7-17) mg/dL Creatinine 1.0 (0.6-1.2) mg/dL Estimated GFR > 60 ml/min BUN/Creatinine Ratio 12 % Glucose 109 H (65-100) mg/dL Calcium 9.3 (8.4-10.2) mg/dL Total Bilirubin 0.70 (0.1-1.2) mg/dL AST 22 (5-40) units/L ALT 16 (7-56) units/L Alkaline Phosphatase 108 (35-129) units/L Troponin T < 0.010 (0.00-0.029) ng/mL NT-Pro-B Natriuret Pep 202.6 (0-900) pg/mL Total Protein 6.6 (6.3-8.2) g/dL Albumin 4.2 (3.9-5) g/dL Albumin/Globulin Ratio 1.8 % - EKG Data 03/25/20 18:50 Sinus rhythm, 72 bpm, normal axis, QTC within normal limits, nonspecific motion artifact. Nonspecific T wave abnormality. The EKG is not a STEMI. - Radiology Data Radiology results: pending, report reviewed, image reviewed Print Report Referring Physician: GAB MARROQUIN Patient Name: KAYLEE RAMEY Date of : 1960 Sex: Female Report Date: 2020-03-25 Report Status: Finalized Findings [facility] [address] [place] [address] XRay Report Signed Patient: KAYLEE RAMEY MR#: [id number] 97 : 1960 Acct:[id number] Age/Sex: 59 / F ADM Date: 03/25/20 Loc: ED Attending Dr: Ordering Physician: AMISH ROSS Date of Service: 03/25/20 Procedure(s): XR chest routine 2V Accession Number(s): [id number] cc: AMISH ROSS Fluoro Time In Minutes: CHEST PA AND LATERAL VIEWS INDICATION: cough, CP, SOB. COMPARISON: 12/26/2019 FINDINGS: Support devices: None. Heart: Postsurgical changes with valve replacement, unchanged. Lungs/Pleura: No acute pulmonary or pleural findings. IMPRESSION: 1. No significant change. Signer Name: Calvin Hayward MD Signed: 03/25/2020 3:23 PM Workstation Name: [id number] Transcribed By: SW Dictated By: Calvin Hayward MD Electronically Authenticated By: Calvin Hayward MD Signed Date/Time: 03/25/201522 DD/ 21 TD/TT: - Medical Decision Making Differential diagnosis, including but not limited to: Bronchitis, therapeutic anticoagulation on Coumadin, bronchiectasis, pneumonia, upper respiratory tract infection Assessment and plan: 59-year-old female, who is afebrile, with reassuring vital signs, with a therapeutic INR, who denies DVT and pulmonary embolism risk factors, presenting to the ER with a complaint of painless intermittent hemoptysis over the past week. She saw her pediatric ophthalmologist, Dr. Kirkpatrick for similar complaints a few days ago, and expectant management was advised. The patient denies fever, hematemesis, bright red blood per rectum, black tarry stool. She is afebrile, with reassuring vital signs, and she is not in any acute distress. Her physical examination is benign and unremarkable. Laboratory studies were sent prior to my personal evaluation, and they are unremarkable. Troponin was sent prior to my personal evaluation, do not suspect acute coronary syndrome at this time, symptoms present for about a week, as per the [employer] clinical policy, acute myocardial infarction may be ruled out with 1 set of troponins/cardiac enzymes. As a courtesy, discussed patient's history, physical, pertinent laboratory studies and x-ray findings with covering pulmonology, Dr. Rodriguez. We agree at this time that no acute intervention is indicated, and patient may follow-up with her outpatient pediatric ophthalmologist expectantly. I discussed this with the patient, who verbalized understanding, and was amenable to discharge. Return precautions are reviewed. Critical care attestation.: If time is entered above; I have spent that time in minutes in the direct care of this critically ill patient, excluding procedure time. ED Disposition Clinical Impression: History of hemoptysis, Anticoagulated Disposition: DC-01 TO HOME OR SELFCARE Is pt being admited?: No Does the pt Need Aspirin: No Condition: Stable Instructions: Hemoptysis Additional Instructions: Please continue current outpatient medications. Avoid consumption of Motrin, ibuprofen, Naprosyn, Aleve. Please follow-up with your pediatric ophthalmologist or primary care doctor within the next week. Please return to the emergency room right away with new pain, worsened pain, ciera ration of pain, projectile vomiting, change in mental status, confusion, inability to tolerate liquid feeds, vomiting blood, defecating blood, or any new, worsened or different symptoms not present on the initial emergency room evaluation. Referrals: PHILIP KIRKPATRICK MD [Staff Physician] - 3-5 Days
[2020-03-25 19:30] VITALS: BP 135/61
== END 2020-03-25 19:15 | disposition home or self-care (01) ==
LOC: ED 14:15
DX: R04.2 Hemoptysis (principal); I50.9 Heart failure, unspecified; K21.9 Gastro-esophageal reflux disease without esophagitis; F17.200 Nicotine dependence, unspecified, uncomplicated; Z79.01 Long term (current) use of anticoagulants; Z98.890 Other specified postprocedural states; Z79.899 Other long term (current) drug therapy; Z88.8 Allergy status to other drugs, medicaments and biological substances
CPT/HCPCS: 36415; 71046; 80053; 83880; 84484; 85025; 85610; 85730; 93005

== ENCOUNTER 2020-04-07 04:15 | Emergency (ER) | payer MEDICARE ==
[2020-04-07 04:42] VITALS: BP 141/52
--- NOTE | 2020-04-07 04:55 | Emergency Department Report ---
- General Chief Complaint: Nosebleed Stated Complaint: NOSEBLEED Source: patient Mode of arrival: Ambulatory Limitations: No Limitations - History of Present Illness Initial Comments: Patient is a 59-year-old -B[place] female with a history of asthma, CHF, GERD, hypertension, A. fib who presents to the ED with complaint of acute onset persistent nasal and sinus congestion for the last 12 hours and intermittent left-sided epistaxis for the last 6 hours. Patient states that she has been sneezing and blowing her nose multiple times because of the nasal congestion and started having left-sided nosebleed. Patient states that the nosebleed has since resolved prior to arrival in the ED but wanted to be evaluated because of the large chunks of blood clot that came out of her left nares. Patient denies dizziness, syncope, headache, chest pain, shortness of breath, fever, chills, cough, sore throat or change in vision, seizures, abdominal pain, traumatic injury or fall. MD Complaint: rhinorrhea, nasal congestion, sinus pain, other (left-sided nosebleed) -: Sudden, hour(s) (6) Severity: moderate Severity scale (0 -10): 5 Quality: sharp, aching Consistency: intermittent Improves With: nothing Worsens With: nothing Associated Symptoms: denies other symptoms, rhinorrhea, nasal congestion, epistaxis (left-sided). denies: fever, chills, myalgias, diaphoresis, headache, sore throat, chest pain, shortness of breath, nausea, vomiting, diarrhea Treatments Prior to Arrival: none - Related Data Home Medications Medication Instructions Recorded Confirmed Last Taken Furosemide [Lasix TAB] 40 mg PO QDAY 04/25/18 06/02/19 10/07/18 Potassium Chloride [K-Dur] 20 meq PO QDAY 04/25/18 06/02/19 10/07/18 Arformoterol Nebu [Brovana Nebu] 15 mcg IH BID 10/14/18 06/02/19 10/07/18 Aspirin EC 81 mg PO DAILY 10/14/18 06/02/19 10/07/18 Fluticasone/Salmeterol [Advair 1 puff PO BID PRN 10/14/18 06/02/19 10/06/18 Diskus 250-50 mcg] Pantoprazole [Protonix TAB] 40 mg PO DAILY 10/14/18 06/02/19 10/07/18 Proventil Hfa 2 puff INHALATION Q4H PRN 10/14/18 06/02/19 10/07/18 Warfarin [Coumadin] 1 mg PO DAILY 10/14/18 06/02/19 10/07/18 Previous Rx's Medication Instructions Recorded Last Taken Type Fluticasone [Flonase] 1 spray NS QDAY #1 bottle 12/26/18 Unknown Rx ALBUTEROL NEB's [Proventil 0.083% 2.5 mg IH Q6H PRN #1 box 12/26/19 Unknown Rx NEBS] Albuterol Mdi (or & Nicu Only) 2 puff IH QID PRN #8.5 gram 12/26/19 Unknown Rx [ProAir HFA Inhaler] predniSONE [Deltasone] 20 mg PO BID #8 tab 12/26/19 Unknown Rx Allergies Allergy/AdvReac Type Severity Reaction Status Date / Time Iodinated Contrast Media Allergy Swelling Verified 06/02/19 10:30 morphine Allergy Rash Verified 06/02/19 10:30 ED Review of Systems ROS: Stated complaint: NOSEBLEED Other details as noted in HPI Constitutional: denies: chills, fever Eyes: denies: eye pain, eye discharge, vision change ENT: epistaxis (Left-sided nosebleed), congestion (Nasal congestion). denies: ear pain, throat pain Respiratory: denies: cough, shortness of breath, wheezing Cardiovascular: denies: chest pain, palpitations Endocrine: no symptoms reported Gastrointestinal: denies: abdominal pain, nausea, diarrhea Genitourinary: denies: urgency, dysuria, discharge Musculoskeletal: denies: back pain, joint swelling, arthralgia Skin: denies: rash, lesions Neurological: denies: headache, weakness, paresthesias Psychiatric: denies: anxiety, depression Hematological/Lymphatic: denies: easy bleeding, easy bruising ED Past Medical Hx - Past Medical History Previous Medical History?: Yes Hx Hypertension: No Hx CVA: No Hx Heart Attack/AMI: No Hx Congestive Heart Failure: Yes Hx Diabetes: No Hx Deep Vein Thrombosis: No Hx Pulmonary Embolism: No Hx GERD: Yes Hx Liver Disease: No Hx Renal Disease: No Hx Sickle Cell Disease: No Hx Arthritis: No Hx Headaches / Migraines: No Hx Seizures: No Hx Kidney Stones: No Hx Psychiatric Treatment: No Hx Asthma: Yes Hx COPD: (O2-2lpm continuously) Hx Tuberculosis: No Hx Dementia: No Hx HIV: No Additional medical history: gall stones, fibroids, MVP, myomectomy. A. fib with rvr - Surgical History Past Surgical History?: Yes Hx Coronary Stent: No Hx Open Heart Surgery: Yes (Mitral and Tricuspid valve replacement/surgery (based on cxr) 05/2018) Hx Pacemaker: No Hx Internal Defibrillator: No Hx Cholecystectomy: No Hx Appendectomy: No Hx Breast Surgery: No Additional Surgical History: fibroid removal - Social History Smoking Status: Current Every Day Smoker Substance Use Type: None - Medications Home Medications: Home Medications Medication Instructions Recorded Confirmed Last Taken Type Furosemide [Lasix TAB] 40 mg PO QDAY 04/25/18 06/02/19 10/07/18 History Potassium Chloride [K-Dur] 20 meq PO QDAY 04/25/18 06/02/19 10/07/18 History Arformoterol Nebu [Brovana Nebu] 15 mcg IH BID 10/14/18 06/02/19 10/07/18 History Aspirin EC 81 mg PO DAILY 10/14/18 06/02/19 10/07/18 History Fluticasone/Salmeterol [Advair 1 puff PO BID PRN 10/14/18 06/02/19 10/06/18 History Diskus 250-50 mcg] Pantoprazole [Protonix TAB] 40 mg PO DAILY 10/14/18 06/02/19 10/07/18 History Proventil Hfa 2 puff INHALATION Q4H PRN 10/14/18 06/02/19 10/07/18 History Warfarin [Coumadin] 1 mg PO DAILY 10/14/18 06/02/19 10/07/18 History Fluticasone [Flonase] 1 spray NS QDAY #1 bottle 12/26/18 06/02/19 Unknown Rx ALBUTEROL NEB's [Proventil 0.083% 2.5 mg IH Q6H PRN #1 box 12/26/19 Unknown Rx NEBS] Albuterol Mdi (or & Nicu Only) 2 puff IH QID PRN #8.5 gram 12/26/19 Unknown Rx [ProAir HFA Inhaler] predniSONE [Deltasone] 20 mg PO BID #8 tab 12/26/19 Unknown Rx ED Physical Exam - General Limitations: No Limitations General appearance: alert, in no apparent distress - Head Head exam: Present: atraumatic, normocephalic, normal inspection - Eye Eye exam: Present: normal appearance, PERRL, EOMI Pupils: Present: normal accommodation - ENT ENT exam: Present: normal orophraynx, mucous membranes moist, TM's normal bilaterally, normal external ear exam, other (Grossly congested nasal passages; left-sided resolved epistaxis) - Neck Neck exam: Present: normal inspection, full ROM - Respiratory Respiratory exam: Present: normal lung sounds bilaterally. Absent: respiratory distress, wheezes, rales, rhonchi, chest wall tenderness, accessory muscle use - Cardiovascular Cardiovascular Exam: Present: regular rate, normal rhythm, normal heart sounds. Absent: systolic murmur, diastolic murmur, rubs, gallop - GI/Abdominal GI/Abdominal exam: Present: soft, normal bowel sounds. Absent: tenderness, guarding, hyperactive bowel sounds, hypoactive bowel sounds, organomegaly - Extremities Exam Extremities exam: Present: normal inspection, full ROM, normal capillary refill - Back Exam Back exam: Present: normal inspection, full ROM. Absent: tenderness, CVA tenderness (R), CVA tenderness (L), muscle spasm, paraspinal tenderness - Neurological Exam Neurological exam: Present: alert, oriented X3, CN II-XII intact, normal gait, reflexes normal - Psychiatric Psychiatric exam: Present: normal affect, normal mood - Skin Skin exam: Present: warm, dry, intact, normal color. Absent: rash ED Course Vital Signs 04/07/20 04:41 Temperature 98.7 F Pulse Rate 77 Respiratory 18 Rate Blood Pressure 141/52 O2 Sat by Pulse 95 Oximetry ED Medical Decision Making - Medical Decision Making This is a 59-year-old -[place] female with a history of asthma, CHF, GERD, hypertension, A. fib who presents to the ED with complaint of acute onset persistent nasal and sinus congestion for the last 12 hours and intermittent left-sided epistaxis for the last 6 hours. Patient states that she has been sneezing and blowing her nose multiple times because of the nasal congestion and started having left-sided nosebleed. Patient states that the nosebleed has since resolved prior to arrival in the ED but wanted to be evaluated because of the large chunks of blood clot that came out of her left nares. In the ED, patient is alert and oriented x3 and is not in any distress with stable vital signs. Patient's nosebleed symptoms resolved prior to arrival in the ED. Patient is hemodynamically stable and was discharged home and advised on what procedure to follow whenever she develops nosebleed. Patient was also advised to avoid putting too much pressure on the nasal passages and to increase humidity at home to prevent further nosebleeds. Patient was advised to follow- up with her primary care physician in 3 to 5 days for reevaluation or return to the ED immediately if symptoms get worse. - Differential Diagnosis Viral URI; allergic rhinitis; nosebleed; sinusitis Critical care attestation.: If time is entered above; I have spent that time in minutes in the direct care of this critically ill patient, excluding procedure time. ED Disposition Clinical Impression: Viral upper respiratory tract infection, Left-sided nosebleed Disposition: DC-01 TO HOME OR SELFCARE Is pt being admited?: No Does the pt Need Aspirin: No Condition: Stable Instructions: Viral Respiratory Infection, [id number], Upper Respiratory Infection, Adult, Etiw-[id number], Nosebleed, [id number] Additional Instructions: Follow-up with your primary care physician in 3 to 5 days for reevaluation. Return to the ED immediately if symptoms get worse. Referrals: [facility] [Provider Group] - 3-5 Days Time of Disposition: 04:57 Print Language: CROATIAN
== END 2020-04-07 05:17 | disposition home or self-care (01) ==
LOC: ED 04:15
DX: J06.9 Acute upper respiratory infection, unspecified (principal); R04.0 Epistaxis; B97.89 Other viral agents as the cause of diseases classified elsewhere; I11.0 Hypertensive heart disease with heart failure; I50.9 Heart failure, unspecified; K21.9 Gastro-esophageal reflux disease without esophagitis; J44.9 Chronic obstructive pulmonary disease, unspecified; I48.91 Unspecified atrial fibrillation; F17.200 Nicotine dependence, unspecified, uncomplicated; Z98.890 Other specified postprocedural states; Z79.899 Other long term (current) drug therapy; Z88.6 Allergy status to analgesic agent; Z91.041 Radiographic dye allergy status
CPT/HCPCS: 99282

== ENCOUNTER 2020-05-17 02:22 | Emergency (ER) | payer MEDICARE ==
[2020-05-17 02:39] VITALS: BP 146/62
[2020-05-17] MEDS ORDERED: predniSONE 20 MG TAB PO ONE (02:47)
--- NOTE | 2020-05-17 03:11 | XRay Report ---
CHEST 2 VIEWS INDICATION: cough. COMPARISON: Stable cardiomegaly status post previous median sternotomy. FINDINGS: Support devices: None. Heart: Within normal limits. Lungs/Pleura: No acute air space or interstitial disease. No significant pleural effusion. IMPRESSION: Stable cardiomegaly. Signer Name: Luc Wetzel MD Signed: 05/17/2020 3:06 AM Workstation Name: [id number]
--- NOTE | 2020-05-17 03:36 | Emergency Department Report ---
- General Chief Complaint: Upper Respiratory Infection Stated Complaint: SPITTING UP BLOOD Source: patient Mode of arrival: Ambulatory Limitations: No Limitations - History of Present Illness Initial Comments: Patient is a 59-year-old -Thai female with a history of asthma, COPD, CHF and heavy tobacco abuse who presents to the ED with complaint of persistent dry cough for the last 1 week, was the last 2 days. Patient states that she used her albuterol nebulizer 2 hours prior to arrival in the ED. Patient states that she had an episode where she felt that she smelled and tasted some blood with a cough. Patient denies dizziness, syncope, chest pain, shortness of breath, sore throat, abdominal pain, fever, chills, change in vision, headache or traumatic injury or neck pain. MD Complaint: cough, nasal congestion -: Sudden, week(s) (1) Severity: moderate Severity scale (0 -10): 3 Quality: dull, aching Consistency: intermittent Improves With: nothing Worsens With: nothing Context: other (COPD, Tobacco abuse) Associated Symptoms: denies other symptoms, rhinorrhea, nasal congestion, cough. denies: fever, chills, myalgias, diaphoresis, headache, sore throat, stiff neck, chest pain, shortness of breath, abdominal pain, nausea, vomiting, diarrhea, confusion, right sweats, weight loss, epistaxis, hoarseness, ear pain Treatments Prior to Arrival: none - Related Data Home Medications Medication Instructions Recorded Confirmed Last Taken Furosemide [Lasix TAB] 40 mg PO QDAY 04/25/18 06/02/19 10/07/18 Potassium Chloride [K-Dur] 20 meq PO QDAY 04/25/18 06/02/19 10/07/18 Arformoterol Nebu [Brovana Nebu] 15 mcg IH BID 10/14/18 06/02/19 10/07/18 Aspirin EC 81 mg PO DAILY 10/14/18 06/02/19 10/07/18 Fluticasone/Salmeterol [Advair 1 puff PO BID PRN 10/14/18 06/02/19 10/06/18 Diskus 250-50 mcg] Pantoprazole [Protonix TAB] 40 mg PO DAILY 10/14/18 06/02/19 10/07/18 Proventil Hfa 2 puff INHALATION Q4H PRN 10/14/18 06/02/19 10/07/18 Warfarin [Coumadin] 1 mg PO DAILY 10/14/18 06/02/19 10/07/18 Previous Rx's Medication Instructions Recorded Last Taken Type Fluticasone [Flonase] 1 spray NS QDAY #1 bottle 12/26/18 Unknown Rx ALBUTEROL NEB's [Proventil 0.083% 2.5 mg IH Q6H PRN #1 box 12/26/19 Unknown Rx NEBS] Albuterol Mdi (or & Nicu Only) 2 puff IH QID PRN #8.5 gram 12/26/19 Unknown Rx [ProAir HFA Inhaler] Benzonatate [Tessalon Perles] 100 mg PO Q8HR #30 capsule 05/17/20 Unknown Rx predniSONE [Deltasone] 40 mg PO BID #12 tab 05/17/20 Unknown Rx Allergies Allergy/AdvReac Type Severity Reaction Status Date / Time Iodinated Contrast Media Allergy Swelling Verified 06/02/19 10:30 morphine Allergy Rash Verified 06/02/19 10:30 ED Review of Systems ROS: Stated complaint: SPITTING UP BLOOD Other details as noted in HPI Constitutional: denies: chills, fever Eyes: denies: eye pain, eye discharge, vision change ENT: congestion. denies: ear pain, throat pain Respiratory: cough, shortness of breath, wheezing Cardiovascular: denies: chest pain, palpitations Endocrine: no symptoms reported Gastrointestinal: denies: abdominal pain, nausea, diarrhea Genitourinary: denies: urgency, dysuria, discharge Musculoskeletal: denies: back pain, joint swelling, arthralgia Skin: denies: rash, lesions Neurological: denies: headache, weakness, paresthesias Psychiatric: denies: anxiety, depression Hematological/Lymphatic: denies: easy bleeding, easy bruising ED Past Medical Hx - Past Medical History Hx Hypertension: No Hx CVA: No Hx Heart Attack/AMI: No Hx Congestive Heart Failure: Yes Hx Diabetes: No Hx Deep Vein Thrombosis: No Hx Pulmonary Embolism: No Hx GERD: Yes Hx Liver Disease: No Hx Renal Disease: No Hx Sickle Cell Disease: No Hx Arthritis: No Hx Headaches / Migraines: No Hx Seizures: No Hx Kidney Stones: No Hx Psychiatric Treatment: No Hx Asthma: Yes Hx COPD: (O2-2lpm continuously) Hx Tuberculosis: No Hx Dementia: No Hx HIV: No Additional medical history: gall stones, fibroids, MVP, myomectomy. A. fib with rvr - Surgical History Hx Coronary Stent: No Hx Open Heart Surgery: Yes (Mitral and Tricuspid valve replacement/surgery (based on cxr) 05/2018) Hx Pacemaker: No Hx Internal Defibrillator: No Hx Cholecystectomy: No Hx Appendectomy: No Hx Breast Surgery: No Additional Surgical History: fibroid removal - Social History Smoking Status: Current Every Day Smoker - Medications Home Medications: Home Medications Medication Instructions Recorded Confirmed Last Taken Type Furosemide [Lasix TAB] 40 mg PO QDAY 04/25/18 06/02/19 10/07/18 History Potassium Chloride [K-Dur] 20 meq PO QDAY 04/25/18 06/02/19 10/07/18 History Arformoterol Nebu [Brovana Nebu] 15 mcg IH BID 10/14/18 06/02/19 10/07/18 History Aspirin EC 81 mg PO DAILY 10/14/18 06/02/19 10/07/18 History Fluticasone/Salmeterol [Advair 1 puff PO BID PRN 10/14/18 06/02/19 10/06/18 History Diskus 250-50 mcg] Pantoprazole [Protonix TAB] 40 mg PO DAILY 10/14/18 06/02/19 10/07/18 History Proventil Hfa 2 puff INHALATION Q4H PRN 10/14/18 06/02/19 10/07/18 History Warfarin [Coumadin] 1 mg PO DAILY 10/14/18 06/02/19 10/07/18 History Fluticasone [Flonase] 1 spray NS QDAY #1 bottle 12/26/18 06/02/19 Unknown Rx ALBUTEROL NEB's [Proventil 0.083% 2.5 mg IH Q6H PRN #1 box 12/26/19 Unknown Rx NEBS] Albuterol Mdi (or & Nicu Only) 2 puff IH QID PRN #8.5 gram 12/26/19 Unknown Rx [ProAir HFA Inhaler] Benzonatate [Tessalon Perles] 100 mg PO Q8HR #30 capsule 05/17/20 Unknown Rx predniSONE [Deltasone] 40 mg PO BID #12 tab 05/17/20 Unknown Rx ED Physical Exam - General Limitations: No Limitations General appearance: alert, in no apparent distress - Head Head exam: Present: atraumatic, normocephalic, normal inspection - Eye Eye exam: Present: normal appearance, PERRL, EOMI Pupils: Present: normal accommodation - ENT ENT exam: Present: normal exam, normal orophraynx, mucous membranes moist, TM's normal bilaterally, normal external ear exam - Neck Neck exam: Present: normal inspection, full ROM - Respiratory Respiratory exam: Present: normal lung sounds bilaterally. Absent: respiratory distress, wheezes, rales, rhonchi, stridor, chest wall tenderness, decreased breath sounds, prolonged expiratory - Cardiovascular Cardiovascular Exam: Present: regular rate, normal rhythm, normal heart sounds. Absent: systolic murmur, diastolic murmur, rubs, gallop - GI/Abdominal GI/Abdominal exam: Present: soft, normal bowel sounds. Absent: tenderness, guarding, rigid, hyperactive bowel sounds, hypoactive bowel sounds, organomegaly - Extremities Exam Extremities exam: Present: normal inspection, full ROM, normal capillary refill - Back Exam Back exam: Present: normal inspection, full ROM. Absent: tenderness, CVA tenderness (R), CVA tenderness (L), muscle spasm - Neurological Exam Neurological exam: Present: alert, oriented X3, CN II-XII intact, normal gait, reflexes normal - Psychiatric Psychiatric exam: Present: normal affect, normal mood - Skin Skin exam: Present: warm, dry, intact, normal color. Absent: rash ED Course Vital Signs 05/17/20 02:38 Temperature 97.7 F Pulse Rate 85 Respiratory 18 Rate Blood Pressure 146/62 O2 Sat by Pulse 98 Oximetry ED Medical Decision Making - Radiology Data Radiology results: report reviewed, image reviewed [facility] [address] [place] [address] XRay Report Signed Patient: KAYLEE RAMEY MR#: [id number] [birth year] : 1960 Acct:[id number] Age/Sex: 59 / F ADM Date: 05/17/20 Loc: ED Attending Dr: Ordering Physician: AMISH FUENTES Date of Service: 05/17/20 Procedure(s): XR chest routine 2V Accession Number(s): [id number] cc: AMISH FUENTES Fluoro Time In Minutes: CHEST 2 VIEWS INDICATION: cough. COMPARISON: Stable cardiomegaly status post previous median sternotomy. FINDINGS: Support devices: None. Heart: Within normal limits. Lungs/Pleura: No acute air space or interstitial disease. No significant pleural effusion. IMPRESSION: Stable cardiomegaly. Signer Name: Luc Wetzel MD Signed: 05/17/2020 3:06 AM Workstation Name: [id number] Transcribed By: ES Dictated By: Luc Wetzel MD Electronically Authenticated By: Luc Wetzel MD Signed Date/Time: 05/17/20305 DD/ 4 TD/TT: Print - Medical Decision Making This is a 59-year-old -Thai female with a history of asthma, COPD, CHF and heavy tobacco abuse who presents to the ED with complaint of persistent dry cough for the last 1 week, was the last 2 days. Patient states that she used her albuterol nebulizer 2 hours prior to arrival in the ED. Patient states that she had an episode where she felt that she smelled and tasted some blood with a cough. In the ED, patient is alert and oriented x3 and is not in distress. Patient's oxygen saturation is 98% in room air. Chest x-ray shows no acute cardiopulmonary abnormalities or pneumonitis but stable cardiomegaly. Patient was treated in the ED with oral prednisone and was discharged home on more steroid prescriptions. Patient was advised to follow-up with her primary care physician in 5 to 7 days for reevaluation and to consider quitting tobacco abuse to improve on her symptoms. Patient was advised return to the ED immediately if symptoms get worse. - Differential Diagnosis Asthma / COPD; chronic bronchitis; URI; pneumonia; CHF Critical care attestation.: If time is entered above; I have spent that time in minutes in the direct care of this critically ill patient, excluding procedure time. ED Disposition Clinical Impression: Shortness of breath, Chronic bronchitis with acute exacerbation Disposition: DC-01 TO HOME OR SELFCARE Is pt being admited?: No Does the pt Need Aspirin: No Condition: Stable Instructions: Chronic Bronchitis (ED), Shortness of Breath, Adult, [id number], Cough, Adult, [id number], Chronic Obstructive Pulmonary Disease, [id number] Additional Instructions: Chest x-ray shows no acute cardiopulmonary abnormalities or pneumonitis. Therefore take medication with food, drink plenty of fluids and follow-up with your primary care physician in 5 to 7 days for reevaluation. Return to the ED immediately if symptoms get worse. Prescriptions: predniSONE [Deltasone] 40 mg PO BID #12 tab Benzonatate [Tessalon Perles] 100 mg PO Q8HR #30 capsule Referrals: [facility] [Provider Group] - 3-5 Days Time of Disposition: 03:35 Print Language: BENGALI
== END 2020-05-17 03:45 | disposition home or self-care (01) ==
LOC: ED 02:22
DX: J42 Unspecified chronic bronchitis (principal); R06.02 Shortness of breath; I50.9 Heart failure, unspecified; J45.909 Unspecified asthma, uncomplicated; F17.200 Nicotine dependence, unspecified, uncomplicated; Z98.890 Other specified postprocedural states; Z79.899 Other long term (current) drug therapy; Z88.8 Allergy status to other drugs, medicaments and biological substances
CPT/HCPCS: 71046; 99283; J7512

== ENCOUNTER 2020-06-11 05:27 | Emergency (ER) | payer MEDICARE ==
[2020-06-11 05:46] VITALS: BP 149/68
--- NOTE | 2020-06-11 05:54 | Emergency Department Report ---
ED ENT HPI - General Chief complaint: Earache Stated complaint: BILATERAL EARACHE Time Seen by Provider: 06/11/20 05:41 Source: patient Mode of arrival: Ambulatory Limitations: No Limitations - History of Present Illness Initial comments: Patient is a 59-year-old female who presents emergency room with complaints of bilateral ear discomfort that began 3 days ago. She states that it feels like a pressure sensation. She states that she also gets occasional tinnitus in the right ear. She denies any trauma. She denies any fever, ear drainage, chills, nausea, vomiting, diarrhea, cough, shortness of breath. She has never seen an ENT doctor. Allergy to contrast dye and morphine. Past medical history of CHF, COPD, asthma, gallstones, fibroids, MVP, myomectomy, A. fib, mechanical valve on anticoagulation. - Related Data Home Medications Medication Instructions Recorded Confirmed Last Taken Furosemide [Lasix TAB] 40 mg PO QDAY 04/25/18 06/02/19 10/07/18 Potassium Chloride [K-Dur] 20 meq PO QDAY 04/25/18 06/02/19 10/07/18 Arformoterol Nebu [Brovana Nebu] 15 mcg IH BID 10/14/18 06/02/19 10/07/18 Aspirin EC 81 mg PO DAILY 10/14/18 06/02/19 10/07/18 Fluticasone/Salmeterol [Advair 1 puff PO BID PRN 10/14/18 06/02/19 10/06/18 Diskus 250-50 mcg] Pantoprazole [Protonix TAB] 40 mg PO DAILY 10/14/18 06/02/19 10/07/18 Proventil Hfa 2 puff INHALATION Q4H PRN 10/14/18 06/02/19 10/07/18 Warfarin [Coumadin] 1 mg PO DAILY 10/14/18 06/02/19 10/07/18 Previous Rx's Medication Instructions Recorded Last Taken Type Fluticasone [Flonase] 1 spray NS QDAY #1 bottle 12/26/18 Unknown Rx ALBUTEROL NEB's [Proventil 0.083% 2.5 mg IH Q6H PRN #1 box 12/26/19 Unknown Rx NEBS] Albuterol Mdi (or & Nicu Only) 2 puff IH QID PRN #8.5 gram 12/26/19 Unknown Rx [ProAir HFA Inhaler] Benzonatate [Tessalon Perles] 100 mg PO Q8HR #30 capsule 05/17/20 Unknown Rx predniSONE [Deltasone] 40 mg PO BID #12 tab 05/17/20 Unknown Rx Cetirizine HCl [Zyrtec 10mg tab] 10 mg PO DAILY #14 tablet 06/11/20 Unknown Rx Fluticasone [Flonase] 1 spray NS QDAY #1 bottle 06/11/20 Unknown Rx guaiFENesin ER [Mucinex ER] 600 mg PO BID #14 tablet.er 06/11/20 Unknown Rx Allergies Allergy/AdvReac Type Severity Reaction Status Date / Time Iodinated Contrast Media Allergy Swelling Verified 06/02/19 10:30 morphine Allergy Rash Verified 06/02/19 10:30 ED Dental HPI - General Chief complaint: Earache Stated complaint: BILATERAL EARACHE Time Seen by Provider: 06/11/20 05:41 Source: patient Mode of arrival: Ambulatory Limitations: No Limitations - Related Data Home Medications Medication Instructions Recorded Confirmed Last Taken Furosemide [Lasix TAB] 40 mg PO QDAY 04/25/18 06/02/19 10/07/18 Potassium Chloride [K-Dur] 20 meq PO QDAY 04/25/18 06/02/19 10/07/18 Arformoterol Nebu [Brovana Nebu] 15 mcg IH BID 10/14/18 06/02/19 10/07/18 Aspirin EC 81 mg PO DAILY 10/14/18 06/02/19 10/07/18 Fluticasone/Salmeterol [Advair 1 puff PO BID PRN 10/14/18 06/02/19 10/06/18 Diskus 250-50 mcg] Pantoprazole [Protonix TAB] 40 mg PO DAILY 10/14/18 06/02/19 10/07/18 Proventil Hfa 2 puff INHALATION Q4H PRN 10/14/18 06/02/19 10/07/18 Warfarin [Coumadin] 1 mg PO DAILY 10/14/18 06/02/19 10/07/18 Previous Rx's Medication Instructions Recorded Last Taken Type Fluticasone [Flonase] 1 spray NS QDAY #1 bottle 12/26/18 Unknown Rx ALBUTEROL NEB's [Proventil 0.083% 2.5 mg IH Q6H PRN #1 box 12/26/19 Unknown Rx NEBS] Albuterol Mdi (or & Nicu Only) 2 puff IH QID PRN #8.5 gram 12/26/19 Unknown Rx [ProAir HFA Inhaler] Benzonatate [Tessalon Perles] 100 mg PO Q8HR #30 capsule 05/17/20 Unknown Rx predniSONE [Deltasone] 40 mg PO BID #12 tab 05/17/20 Unknown Rx Cetirizine HCl [Zyrtec 10mg tab] 10 mg PO DAILY #14 tablet 06/11/20 Unknown Rx Fluticasone [Flonase] 1 spray NS QDAY #1 bottle 06/11/20 Unknown Rx guaiFENesin ER [Mucinex ER] 600 mg PO BID #14 tablet.er 06/11/20 Unknown Rx Allergies Allergy/AdvReac Type Severity Reaction Status Date / Time Iodinated Contrast Media Allergy Swelling Verified 06/02/19 10:30 morphine Allergy Rash Verified 06/02/19 10:30 ED Review of Systems ROS: Stated complaint: BILATERAL EARACHE Other details as noted in HPI Comment: All other systems reviewed and negative ED Past Medical Hx - Past Medical History Previous Medical History?: Yes Hx Hypertension: No Hx CVA: No Hx Heart Attack/AMI: No Hx Congestive Heart Failure: Yes Hx Diabetes: No Hx Deep Vein Thrombosis: No Hx Pulmonary Embolism: No Hx GERD: Yes Hx Liver Disease: No Hx Renal Disease: No Hx Sickle Cell Disease: No Hx Arthritis: No Hx Headaches / Migraines: No Hx Seizures: No Hx Kidney Stones: No Hx Psychiatric Treatment: No Hx Asthma: Yes Hx COPD: (O2-2lpm continuously) Hx Tuberculosis: No Hx Dementia: No Hx HIV: No Additional medical history: gall stones, fibroids, MVP, myomectomy. A. fib with rvr - Surgical History Past Surgical History?: Yes Hx Coronary Stent: No Hx Open Heart Surgery: Yes (Mitral and Tricuspid valve replacement/surgery (based on cxr) 05/2018) Hx Pacemaker: No Hx Internal Defibrillator: No Hx Cholecystectomy: No Hx Appendectomy: No Hx Breast Surgery: No Additional Surgical History: fibroid removal - Social History Smoking Status: Former Smoker - Medications Home Medications: Home Medications Medication Instructions Recorded Confirmed Last Taken Type Furosemide [Lasix TAB] 40 mg PO QDAY 04/25/18 06/02/19 10/07/18 History Potassium Chloride [K-Dur] 20 meq PO QDAY 04/25/18 06/02/19 10/07/18 History Arformoterol Nebu [Brovana Nebu] 15 mcg IH BID 10/14/18 06/02/19 10/07/18 History Aspirin EC 81 mg PO DAILY 10/14/18 06/02/19 10/07/18 History Fluticasone/Salmeterol [Advair 1 puff PO BID PRN 10/14/18 06/02/19 10/06/18 History Diskus 250-50 mcg] Pantoprazole [Protonix TAB] 40 mg PO DAILY 10/14/18 06/02/19 10/07/18 History Proventil Hfa 2 puff INHALATION Q4H PRN 10/14/18 06/02/19 10/07/18 History Warfarin [Coumadin] 1 mg PO DAILY 10/14/18 06/02/19 10/07/18 History Fluticasone [Flonase] 1 spray NS QDAY #1 bottle 12/26/18 06/02/19 Unknown Rx ALBUTEROL NEB's [Proventil 0.083% 2.5 mg IH Q6H PRN #1 box 12/26/19 Unknown Rx NEBS] Albuterol Mdi (or & Nicu Only) 2 puff IH QID PRN #8.5 gram 12/26/19 Unknown Rx [ProAir HFA Inhaler] Benzonatate [Tessalon Perles] 100 mg PO Q8HR #30 capsule 05/17/20 Unknown Rx predniSONE [Deltasone] 40 mg PO BID #12 tab 05/17/20 Unknown Rx Cetirizine HCl [Zyrtec 10mg tab] 10 mg PO DAILY #14 tablet 06/11/20 Unknown Rx Fluticasone [Flonase] 1 spray NS QDAY #1 bottle 06/11/20 Unknown Rx guaiFENesin ER [Mucinex ER] 600 mg PO BID #14 tablet.er 06/11/20 Unknown Rx ED Physical Exam - General Limitations: No Limitations General appearance: alert, in no apparent distress - Head Head exam: Present: atraumatic, normocephalic - Eye Eye exam: Present: normal appearance - ENT ENT exam: Present: normal orophraynx, mucous membranes moist, TM's normal bilaterally, normal external ear exam - Respiratory Respiratory exam: Absent: respiratory distress, accessory muscle use - Neurological Exam Neurological exam: Present: alert, oriented X3 - Psychiatric Psychiatric exam: Present: normal affect, normal mood - Skin Skin exam: Present: warm, dry, intact ED Course Vital Signs 06/11/20 06/11/20 05:45 05:49 Temperature 98.6 F Pulse Rate 106 H 91 H Respiratory 20 17 Rate Blood Pressure 149/68 [Right] O2 Sat by Pulse 96 98 Oximetry ED Medical Decision Making - Lab Data Vital Signs 06/11/20 06/11/20 05:45 05:49 Temperature 98.6 F Pulse Rate 106 H 91 H Respiratory 20 17 Rate Blood Pressure 149/68 [Right] O2 Sat by Pulse 96 98 Oximetry - Medical Decision Making Patient is a 59-year-old female who presents emergency room with complaints of bilateral ear discomfort that began 3 days ago. She states that it feels like a pressure sensation. She states that she also gets occasional tinnitus in the right ear. She denies any trauma. She denies any fever, ear drainage, chills, nausea, vomiting, diarrhea, cough, shortness of breath. She has never seen an ENT doctor. Allergy to contrast dye and morphine. Past medical history of CHF, COPD, asthma, gallstones, fibroids, MVP, myomectomy, A. fib, mechanical valve on anticoagulation. Vitals are stable. On exam normal TMs and canals bilaterally, no TM perforation, no serous fluid behind the TM, no purulent drainage, no signs of infection, no mastoid tenderness palpation bilaterally, no signs of cerumen impaction. Patient will be referred to ENT doctor. Patient given prescription for Mucinex, Zyrtec, Flonase. Advised patient Please take medication as prescribed. Follow-up with an ear nose and throat doctor. Return to emergency room for new or worsening symptoms. Critical care attestation.: If time is entered above; I have spent that time in minutes in the direct care of this critically ill patient, excluding procedure time. ED Disposition Clinical Impression: Otalgia of both ears, Tinnitus, right ear Disposition: TO HOME OR SELFCARE Is pt being admited?: No Does the pt Need Aspirin: No Condition: Stable Instructions: Tinnitus, Earache, Adult Additional Instructions: Please take medication as prescribed. Follow-up with an ear nose and throat doctor. Return to emergency room for new or worsening symptoms. Prescriptions: Fluticasone [Flonase] 1 spray NS QDAY #1 bottle guaiFENesin ER [Mucinex ER] 600 mg PO BID #14 tablet.er Cetirizine HCl [Zyrtec 10mg tab] 10 mg PO DAILY #14 tablet Referrals: [facility] [Provider Group] - 3-5 Days [facility], [facility] [Provider Group] - 3-5 Days [facility] [Provider Group] - 3-5 Days Time of Disposition: 05:52 Print Language: [place]
== END 2020-06-11 06:10 | disposition home or self-care (01) ==
LOC: ED 05:27
DX: H93.11 Tinnitus, right ear (principal); K21.9 Gastro-esophageal reflux disease without esophagitis; J45.909 Unspecified asthma, uncomplicated; Z87.891 Personal history of nicotine dependence; Z79.82 Long term (current) use of aspirin; Z79.899 Other long term (current) drug therapy; Z88.8 Allergy status to other drugs, medicaments and biological substances
CPT/HCPCS: 99282

== ENCOUNTER 2020-11-26 11:39 | Outpatient (CLI) | payer MEDICARE ==
[2020-11-26 12:52] LABS: Basophils # (Auto) 0.1 K/mm3 (0.0-0.1); Basophils % (Auto) 0.7 % (0.0-1.8); Eosinophils # (Auto) 0.3 K/mm3 (0.0-0.4); Eosinophils % (Auto) 3.7 % (0.0-4.3); Hematocrit 39.8 % (30.3-42.9); Hemoglobin 13.1 gm/dl (10.1-14.3); Lymphocytes % (Auto) 39.4 % (13.4-35.0); Mean Corpuscular HGB Conc 33 % (30-34); Mean Corpuscular Volume 85 fl (79-97); Monocytes # (Auto) 0.6 K/mm3 (0.0-0.8); Monocytes % (Auto) 8.3 % (0.0-7.3); Platelet Count 306 K/mm3 (140-440); Red Cell Distribution Width 17.1 % (13.2-15.2)
[2020-11-26 13:02] LABS: Alanine Aminotransferase 12 units/L (7-56); BUN/Creatinine Ratio 10; Blood Urea Nitrogen 8 mg/dL (7-17); Hemolysis Index 16
== END 2020-11-26 11:40 | disposition home or self-care (01) ==
LOC: LAB 11:39
PROVIDERS: ATTEND Surgery
DX: Z95.2 Presence of prosthetic heart valve (principal)
CPT/HCPCS: 36415; 80053; 85025

== ENCOUNTER 2020-12-04 07:49 | Observation (INO) | payer MEDICARE ==
[~2020-12-04 07:49] MED LIST changes: +SODIUM CHLORIDE 0.9% 1000 ML 1,000 ML IV SCH; -VERSED IV ONE
[2020-12-04] MEDS ORDERED: METOPROLOL TARTRATE 5 MG/5 ML INJ IV PRN (08:28)
[2020-12-04] MEDS ORDERED: METOPROLOL TARTRATE 5 MG/5 ML INJ IV ONE (08:31)
[2020-12-04] MEDS ORDERED: METOPROLOL TARTRATE 25 MG TAB PO NR (08:47)
--- NOTE | 2020-12-04 10:25 | Event Note ---
Date: 12/04/20 Ms. Coppola has PMH HTN, MR s/p mechanical MVR (coumadin held x5days, lovenox bridge last dose 12/03 AM), COPD on 2L home O2 continuous presents for outpatient colonoscopy. On arrival to pre-procedure area, she was noted to be tachycardic to 150s, Tmax 100.0F, normotensive, SpO2 99% on RA. She denies chest pain, SOB, dizziness. She lives alone and has no known sick contacts. She is fully vaccinated for COVID as of 10/2020 but has not been tested recently. She reports significant anxiety regarding the procedure and did not take home doses of xanax or metoprolol this morning. She was given metoprolol 5mg IV (over 10 mins), home dose metoprolol 25mg PO, and home dose xanax 0.25mg PO over approx 1hr. She reported anxiety was improved but HR remained 130s-140s. EKG showed ST. Will cancel procedure today and transport patient to ED for further evaluation and treatment. Plan discussed with patient who verbalized understanding and is in agreement. Ping Lala MD Anesthesiology
[2020-12-04] MEDS ORDERED: SODIUM CHLORIDE 0.9% 500 ML 500 ML IV ONE (12:53)
[2020-12-04] MEDS ORDERED: HEPARIN 10,000 UNITS/10 ML VIAL IV PRN (12:53)
--- NOTE | 2020-12-04 13:03 | Emergency Department Report ---
HPI - General Chief Complaint: Arrhythmia/Palpitations Time Seen by Provider: 12/04/20 12:42 - HPI HPI: 60-year-old -Congolese female presents to the emergency department from the GI lab with a complaint of persistent tachycardia. The patient was in preop for a colonoscopy when she developed tachycardia with a heart rate of about 140 bpm. The patient says that she has a history of anxiety and says that she did not take her Xanax yet today. She was given a small dose of metoprolol by anesthesia without any improvement in the tachycardia. The colonoscopy was canceled for this reason. Patient has a past medical history of paroxysmal atrial fibrillation anticoagulated on Coumadin, CHF, COPD, GERD, anxiety, hypertension, mitral regurgitation, hyperlipidemia, status post mitral and tricuspid valve repair. She follows with Dr. Sania Dominguez for cardiology. Patient denies any chest pain, shortness of breath, palpitations, abdominal p ain, fever. ED Past Medical Hx - Past Medical History Previous Medical History?: Yes Hx Hypertension: No Hx CVA: No Hx Heart Attack/AMI: No Hx Congestive Heart Failure: Yes Hx Diabetes: No Hx Deep Vein Thrombosis: No Hx Pulmonary Embolism: No Hx GERD: Yes Hx Liver Disease: No Hx Renal Disease: No Hx Sickle Cell Disease: No Hx Arthritis: No Hx Headaches / Migraines: No Hx Seizures: No Hx Kidney Stones: No Hx Psychiatric Treatment: No Hx Asthma: Yes Hx COPD: (O2-2lpm continuously) Hx Tuberculosis: No Hx Dementia: No Hx HIV: No Additional medical history: gall stones, fibroids, MVP, myomectomy. A. fib with rvr - Surgical History Past Surgical History?: Yes Hx Coronary Stent: No Hx Open Heart Surgery: Yes (Mitral and Tricuspid valve replacement/surgery (based on cxr) 05/2018) Hx Pacemaker: No Hx Internal Defibrillator: No Hx Cholecystectomy: No Hx Appendectomy: No Hx Breast Surgery: No Additional Surgical History: fibroid removal - Social History Smoking Status: Current Every Day Smoker Substance Use Type: None - Medications Home Medications: Home Medications Medication Instructions Recorded Confirmed Last Taken Type Furosemide [Lasix TAB] 40 mg PO QDAY 04/25/18 06/02/19 10/07/18 History Potassium Chloride [K-Dur] 20 meq PO QDAY 04/25/18 06/02/19 10/07/18 History Arformoterol Nebu [Brovana Nebu] 15 mcg IH BID 10/14/18 06/02/19 10/07/18 History Aspirin EC 81 mg PO DAILY 10/14/18 06/02/19 10/07/18 History Fluticasone/Salmeterol [Advair 1 puff PO BID PRN 10/14/18 06/02/19 10/06/18 History Diskus 250-50 mcg] Pantoprazole [Protonix TAB] 40 mg PO DAILY 10/14/18 06/02/19 10/07/18 History Proventil Hfa 2 puff INHALATION Q4H PRN 10/14/18 06/02/19 10/07/18 History Warfarin [Coumadin] 1 mg PO DAILY 10/14/18 06/02/19 10/07/18 History Fluticasone [Flonase] 1 spray NS QDAY #1 bottle 12/26/18 06/02/19 Unknown Rx ALBUTEROL NEB's [Proventil 0.083% 2.5 mg IH Q6H PRN #1 box 12/26/19 Unknown Rx NEBS] Albuterol Mdi (or & Nicu Only) 2 puff IH QID PRN #8.5 gram 12/26/19 Unknown Rx [ProAir HFA Inhaler] Benzonatate [Tessalon Perles] 100 mg PO Q8HR #30 capsule 05/17/20 Unknown Rx predniSONE [Deltasone] 40 mg PO BID #12 tab 05/17/20 Unknown Rx Cetirizine HCl [Zyrtec 10mg tab] 10 mg PO DAILY #14 tablet 06/11/20 Unknown Rx Fluticasone [Flonase] 1 spray NS QDAY #1 bottle 06/11/20 Unknown Rx guaiFENesin ER [Mucinex ER] 600 mg PO BID #14 tablet.er 06/11/20 Unknown Rx ED Review of Systems ROS: Stated complaint: Other details as noted in HPI Comment: All other systems reviewed and negative Constitutional: denies: chills, fever Eyes: denies: eye pain, vision change ENT: denies: ear pain, throat pain Respiratory: denies: cough, shortness of breath Cardiovascular: denies: chest pain, palpitations Gastrointestinal: denies: abdominal pain, vomiting Genitourinary: denies: dysuria, discharge Musculoskeletal: denies: back pain, arthralgia Skin: denies: rash, lesions Neurological: denies: headache, weakness Physical Exam - Physical Exam Vital Signs: Vital Signs 12/04/20 12/04/20 12/04/20 08:00 09:10 12:30 Temperature 99.6 F 97.9 F Pulse Rate 145 H 144 H 134 H Respiratory 16 16 Rate Blood Pressure 119/76 Blood Pressure 107/67 [Left] O2 Sat by Pulse 99 98 Oximetry 12/04/20 12:42 Temperature Pulse Rate Respiratory Rate Blood Pressure Blood Pressure [Left] O2 Sat by Pulse 98 Oximetry Physical Exam: GENERAL: The patient is well-developed well-nourished. HENT: Normocephalic. Atraumatic. Patient has moist mucous membranes. EYES: Extraocular motions are intact. NECK: Supple. Trachea is midline. CHEST/LUNGS: Clear to auscultation. There is no respiratory distress noted. HEART/CARDIOVASCULAR: Regular. There is moderate to severe tachycardia. There is no murmur. ABDOMEN: Abdomen is soft, nontender. Patient has normal bowel sounds. There is no abdominal distention. SKIN: Skin is warm and dry. NEURO: The patient is awake, alert, and oriented. The patient is cooperative. The patient has no focal neurologic deficits. Normal speech. MUSCULOSKELETAL: There is no tenderness or deformity. There is no limitation range of motion. ED Course Vital Signs 12/04/20 12/04/20 12/04/20 08:00 09:10 12:30 Temperature 99.6 F 97.9 F Pulse Rate 145 H 144 H 134 H Respiratory 16 16 Rate Blood Pressure 119/76 Blood Pressure 107/67 [Left] O2 Sat by Pulse 99 98 Oximetry 12/04/20 12:42 Temperature Pulse Rate Respiratory Rate Blood Pressure Blood Pressure [Left] O2 Sat by Pulse 98 Oximetry - Consultations Consultation #1: 12/04/20 14:56 The patient was seen in the emergency department by [facility] cardiology. AMISH Cabrera in conjunction with Dr. Galarza. They feel that the EKG is atrial flutter with a 2-1 AV block. They have recommended the patient be started on amiodarone bolus and drip and they will consult on the patient. 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 Pierre. Since the patient is prepped for a colonoscopy, he would like to proceed with a colonoscopy if possible and the patient can be medically cleared by cardiology. Therefore, if possible, he would like for the patient to receive Lovenox for anticoagulation until the colonoscopy is completed and the patient can be switched back to her normal oral anticoagulant. He will consult on the patient. ED Medical Decision Making - Lab Data Result diagrams: 12/04/20 13:05 12/04/20 13:05 Lab Results 12/04/20 12/04/20 12/04/20 Range/Units 13:05 13:05 13:05 WBC 8.9 (4.5-11.0) K/mm3 RBC 4.93 (3.65-5.03) M/mm3 Hgb 13.5 (10.1-14.3) gm/dl Hct 40.8 (30.3-42.9) % MCV 83 (79-97) fl MCH 28 (28-32) pg MCHC 34 (30-34) % RDW 16.6 H (13.2-15.2) % Plt Count 298 (140-440) K/mm3 Lymph % (Auto) 35.6 H (13.4-35.0) % [place] % (Auto) 8.8 H (0.0-7.3) % Eos % (Auto) 2.3 (0.0-4.3) % Baso % (Auto) 0.9 (0.0-1.8) % Lymph # (Auto) 3.2 (1.2-5.4) K/mm3 [place] # (Auto) 0.8 (0.0-0.8) K/mm3 Eos # (Auto) 0.2 (0.0-0.4) K/mm3 Baso # (Auto) 0.1 (0.0-0.1) K/mm3 Seg Neutrophils % 52.4 (40.0-70.0) % Seg Neutrophils # 4.7 (1.8-7.7) K/mm3 PT (12.2-14.9) Sec. INR (0.87-1.13) APTT (24.2-36.6) Sec. Sodium 139 (137-145) mmol/L Potassium 4.0 (3.6-5.0) mmol/L Chloride 104.8 (98-107) mmol/L Carbon Dioxide 22 (22-30) mmol/L Anion Gap 16 mmol/L BUN 9 (7-17) mg/dL Creatinine 0.8 (0.6-1.2) mg/dL Estimated GFR > 60 ml/min BUN/Creatinine Ratio 11 % Glucose 114 H (65-100) mg/dL Calcium 9.1 (8.4-10.2) mg/dL Total Bilirubin 1.30 H (0.1-1.2) mg/dL AST 30 (5-40) units/L ALT 19 (7-56) units/L Alkaline Phosphatase 133 H (35-129) units/L Troponin T 0.014 (0.00-0.029) ng/mL Total Protein 7.4 (6.3-8.2) g/dL Albumin 4.1 (3.9-5) g/dL Albumin/Globulin Ratio 1.2 % TSH 0.856 (0.270-4.200) mlU/mL 12/04/20 Range/Units 13:05 WBC (4.5-11.0) K/mm3 RBC (3.65-5.03) M/mm3 Hgb (10.1-14.3) gm/dl Hct (30.3-42.9) % MCV (79-97) fl MCH (28-32) pg MCHC (30-34) % RDW (13.2-15.2) % Plt Count (140-440) K/mm3 Lymph % (Auto) (13.4-35.0) % [place] % (Auto) (0.0-7.3) % Eos % (Auto) (0.0-4.3) % Baso % (Auto) (0.0-1.8) % Lymph # (Auto) (1.2-5.4) K/mm3 [place] # (Auto) (0.0-0.8) K/mm3 Eos # (Auto) (0.0-0.4) K/mm3 Baso # (Auto) (0.0-0.1) K/mm3 Seg Neutrophils % (40.0-70.0) % Seg Neutrophils # (1.8-7.7) K/mm3 PT 13.7 (12.2-14.9) Sec. INR 0.99 (0.87-1.13) APTT 30.8 (24.2-36.6) Sec. Sodium (137-145) mmol/L Potassium (3.6-5.0) mmol/L Chloride (98-107) mmol/L Carbon Dioxide (22-30) mmol/L Anion Gap mmol/L BUN (7-17) mg/dL Creatinine (0.6-1.2) mg/dL Estimated GFR ml/min BUN/Creatinine Ratio % Glucose (65-100) mg/dL Calcium (8.4-10.2) mg/dL Total Bilirubin (0.1-1.2) mg/dL AST (5-40) units/L ALT (7-56) units/L Alkaline Phosphatase (35-129) units/L Troponin T (0.00-0.029) ng/mL Total Protein (6.3-8.2) g/dL Albumin (3.9-5) g/dL Albumin/Globulin Ratio % TSH (0.270-4.200) mlU/mL - EKG Data -: EKG Interpreted by Me EKG shows normal: sinus rhythm, axis, intervals, QRS complexes, ST-T waves Rate: tachycardia (145 bpm) - EKG Data When compared to previous EKG there are: changes noted (Previous EKG did not show tachycardia) Interpretation: other (Sinus tachycardia 145 bpm, normal axis, normal intervals. No ST elevation MA) - Radiology Data Radiology results: image reviewed interpreted by me: Chest x-ray does not show any acute process. There are no pleural effusions, obvious pneumonia and there is no pneumothorax. No widened mediastinum. - Medical Decision Making This patient presents from the GI lab with tachycardia after an attempted colonoscopy. The colonoscopy was canceled secondary to the tachycardia. Patient was given a dose of metoprolol without any change. EKG looks like sinus tachycardia with a heart rate of 145 bpm, but it appears to be atrial flutter with a 2-1 av of block. Patient's labs have been mostly unremarkable including CBC, metabolic panel, negative troponin, normal thyroid function. Chest x-ray does not show any pneumonia, pleural effusions, pneumothorax, widened mediastinum, or any other acute process. The patient was seen in the emergency department by cardiology who has recommended/requested amiodarone bolus and drip. GI has been contacted and consulted and will plan to do a colonoscopy inpatient if the patient can get cardiac clearance after rate control. Patient will be admitted to the hospital for further evaluation and treatment was accepted for admission by the hospitalist, Dr. Woody. Critical Care Time: Yes Critical care time in (mins) excluding proc time.: 31 Critical care attestation.: If time is entered above; I have spent that time in minutes in the direct care of this critically ill patient, excluding procedure time. Critical care time was spent on this patient in doing her initial evaluation, multiple reevaluations, ordering and interpretation of labs and imaging, discussion with the cardiology and gastroenterology services, amiodarone bolus and drip for her atrial flutter with RVR, multiple discussions with the patient. Critical Care Time: 31 minutes ED Disposition Clinical Impression: Atrial flutter with rapid ventricular response, Tachycardia with heart rate 141-160 beats per minute Disposition: ADMITTED INPATIENT Is pt being admited?: Yes Condition: Serious Time of Disposition: 15:30
[2020-12-04 13:33] LABS: Basophils # (Auto) 0.1 K/mm3 (0.0-0.1); Basophils % (Auto) 0.9 % (0.0-1.8); Eosinophils # (Auto) 0.2 K/mm3 (0.0-0.4); Eosinophils % (Auto) 2.3 % (0.0-4.3); Hemoglobin 13.5 gm/dl (10.1-14.3); Lymphocytes # (Auto) 3.2 K/mm3 (1.2-5.4); Lymphocytes % (Auto) 35.6 % (13.4-35.0); Monocytes # (Auto) 0.8 K/mm3 (0.0-0.8); Monocytes % (Auto) 8.8 % (0.0-7.3)
[2020-12-04 13:40] LABS: Hematocrit 40.8 % (30.3-42.9); Mean Corpuscular HGB Conc 34 % (30-34); Mean Corpuscular Volume 83 fl (79-97); Platelet Count 298 K/mm3 (140-440); Red Blood Count 4.93 M/mm3 (3.65-5.03); Red Cell Distribution Width 16.6 % (13.2-15.2)
--- NOTE | 2020-12-04 13:41 | XRay Report ---
CHEST 1 VIEW INDICATION / CLINICAL INFORMATION: Tachycardia. COMPARISON: 05/17/2020, 03/25/2020. FINDINGS: SUPPORT DEVICES: Stable appearance of cardiac valves and median sternotomy changes. HEART / MEDIASTINUM: No significant abnormality. LUNGS / PLEURA: No significant pulmonary or pleural abnormality. No pneumothorax. ADDITIONAL FINDINGS: No significant additional findings. IMPRESSION: 1. No acute findings. Signer Name: Rick Ledesma MD Signed: 12/04/2020 1:37 PM Workstation Name: [id number]
[2020-12-04 13:46] LABS: INR 0.99 (0.87-1.13)
[2020-12-04 13:47] LABS: Partial Thromboplastin Time 30.8 Sec. (24.2-36.6)
[2020-12-04 13:52] LABS: Alanine Aminotransferase 19 units/L (7-56); Albumin 4.1 g/dL (3.9-5); BUN/Creatinine Ratio 11; Blood Urea Nitrogen 9 mg/dL (7-17); Calcium 9.1 mg/dL (8.4-10.2); Hemolysis Index 9
--- NOTE | 2020-12-04 15:12 | History and Physical Report ---
History of Present Illness Chief complaint: My heart is beating fast History of present illness: 60 YO Female with CHF, GERD, Mild Intermittent Asthma, COPD, Paroxysmal Atrial Fib on therapeutic anticoaguoaltion with coumadin, MVP, JANICE, Uterine Fibroids, Nicotine Dependence presents to ED for evaluation. Patient reports "my heart is beating fast". Patient presented to GI lab today for screening endoscopy. Patient found to have heart rate in the 140s. Patient sent from GI lab to emergency department for further care and evaluation. Patient seen and evaluated in the emergency department. All lab and imaging studies reviewed. Patient underwent routine EKG and found to have atrial fibrillation with rapid ventricular response. Patient placed in observation status and admitted to telemetry and initiated on rate control therapy with amiodarone. Cardiology team consulted in ED. Patient denies fever, chills, chest pain, productive cough, skin rash, recent ill contacts, known exposure to COVID-19. Prior admission on 04/25/2015 reviewed. All medication listed at time of admission has been reconciled. Past History Past Medical History: atrial fib, COPD Past Surgical History: Other (Uterine fibroid excision) Social history: single, smoking. denies: alcohol abuse, prescription drug abuse Family history: hypertension Medications and Allergies Allergies Allergy/AdvReac Type Severity Reaction Status Date / Time Iodinated Contrast Media Allergy Swelling Verified 06/02/19 10:30 morphine Allergy Rash Verified 06/02/19 10:30 Home Medications Medication Instructions Recorded Confirmed Last Taken Type Furosemide [Lasix TAB] 40 mg PO QDAY 04/25/18 06/02/19 10/07/18 History Potassium Chloride [K-Dur] 20 meq PO QDAY 04/25/18 06/02/19 10/07/18 History Arformoterol Nebu [Brovana Nebu] 15 mcg IH BID 10/14/18 06/02/19 10/07/18 History Aspirin EC 81 mg PO DAILY 10/14/18 06/02/19 10/07/18 History Fluticasone/Salmeterol [Advair 1 puff PO BID PRN 10/14/18 06/02/19 10/06/18 History Diskus 250-50 mcg] Pantoprazole [Protonix TAB] 40 mg PO DAILY 10/14/18 06/02/19 10/07/18 History Proventil Hfa 2 puff INHALATION Q4H PRN 10/14/18 06/02/19 10/07/18 History Warfarin [Coumadin] 1 mg PO DAILY 10/14/18 06/02/19 10/07/18 History Fluticasone [Flonase] 1 spray NS QDAY #1 bottle 12/26/18 06/02/19 Unknown Rx ALBUTEROL NEB's [Proventil 0.083% 2.5 mg IH Q6H PRN #1 box 12/26/19 Unknown Rx NEBS] Albuterol Mdi (or & Nicu Only) 2 puff IH QID PRN #8.5 gram 12/26/19 Unknown Rx [ProAir HFA Inhaler] Benzonatate [Tessalon Perles] 100 mg PO Q8HR #30 capsule 05/17/20 Unknown Rx predniSONE [Deltasone] 40 mg PO BID #12 tab 05/17/20 Unknown Rx Cetirizine HCl [Zyrtec 10mg tab] 10 mg PO DAILY #14 tablet 06/11/20 Unknown Rx Fluticasone [Flonase] 1 spray NS QDAY #1 bottle 06/11/20 Unknown Rx guaiFENesin ER [Mucinex ER] 600 mg PO BID #14 tablet.er 06/11/20 Unknown Rx Active Meds: Active Medications Amiodarone HCl 150 mg/ (Dextrose) 100 mls @ 600 mls/hr IV ONCE ONE Stop: 12/04/20 15:04 Amiodarone HCl 900 mg/ (Dextrose) 500 mls @ 33.333 mls/hr IV DIRECT NEL; Protocol Review of Systems Constitutional: no weight loss, no weight gain, no fever, no chills Ears, nose, mouth and throat: no ear pain, no ear discharge, no tinnitis, no decreased hearing, no nasal congestion Cardiovascular: palpitations, rapid/irregular heart beat, no chest pain, no orthopnea, no edema, no paroxysmal nocturnal dyspnea Gastrointestinal: no nausea, no vomiting, no diarrhea, no constipation Genitourinary Female: no pelvic pain, no flank pain, no dysuria, no urinary frequency, no urgency Rectal: no pain, no incontinence, no bleeding Musculoskeletal: no neck stiffness, no neck pain, no shooting arm pain, no arm numbness/tingling, no low back pain, no shooting leg pain Integumentary: no rash, no pruritis, no redness, no sores, no wounds, no jaundice Neurological: no head injury, no transient paralysis, no weakness, no numbness, no syncope, no tremors Psychiatric: anxiety, no memory loss, no sleep disturbances, no insomnia, no change in appetite, no change in libido, no disorientation Endocrine: no cold intolerance, no heat intolerance, no polyphagia, no excessive thirst, no polydipsia, no polyuria, no nocturia, no excessive sweating Hematologic/Lymphatic: no easy bruising, no easy bleeding, no lymphadenopathy, no lymphedema Allergic/Immunologic: no urticaria, no persistent infections, no angioedema Exam - Constitutional Vitals: Temp Pulse Resp BP Pulse Ox 97.9 F 140 H 16 99/55 100 12/04/20 12:30 12/04/20 14:42 12/04/20 14:42 12/04/20 14:42 12/04/20 14:42 General appearance: Present: mild distress - EENT Eyes: Present: PERRL ENT: hearing intact, clear oral mucosa - Neck Neck: Present: supple, normal ROM - Respiratory Respiratory effort: normal Respiratory: bilateral: CTA - Cardiovascular Rhythm: irregularly irregular Heart Sounds: Present: S1 & S2. Absent: rub, click - Extremities Extremities: pulses symmetrical, No edema Peripheral Pulses: within normal limits - Abdominal General gastrointestinal: Present: soft, non-tender, non-distended, normal bowel sounds Female genitourinary: Present: normal - Integumentary Integumentary: Present: clear, warm, dry - Musculoskeletal Musculoskeletal: gait normal, strength equal bilaterally - Psychiatric Psychiatric: appropriate mood/affect, intact judgment & insight - Neurologic Neurologic: CNII-XII intact, moves all extremities HEART Score - HEART Score Troponin: Troponin T 0.014 ng/mL (0.00-0.029) 12/04/20 13:05 Results - Labs CBC & Chem 7: 12/04/20 13:05 12/04/20 13:05 Labs: Abnormal lab results 12/04/20 12/04/20 Range/Units 13:05 13:05 RDW 16.6 H (13.2-15.2) % Lymph % (Auto) 35.6 H (13.4-35.0) % [place] % (Auto) 8.8 H (0.0-7.3) % Glucose 114 H (65-100) mg/dL Total Bilirubin 1.30 H (0.1-1.2) mg/dL Alkaline Phosphatase 133 H (35-129) units/L Assessment and Plan - Patient Problems (1) Atrial flutter with rapid ventricular response Current Visit: Yes Status: Acute Plan to address problem: Cardiology team consulted in ED, rate control as per cardiology team, echocardiogram ordered and pending at time of admission, further care and evaluation as per cardiology team. Therapeutic anticoagulation as per cardiology team. (2) Colon polyps Current Visit: Yes Status: Acute Plan to address problem: Outpatient GI follow-up. (3) DVT prophylaxis Current Visit: Yes Status: Acute Plan to address problem: SCD to bilateral lower extremities while in bed, continue therapeutic anticoagulation
[2020-12-04] MEDS ORDERED: ALBUTEROL 2.5 MG/3 ML NEBU IH PRN ×2 (15:21→16:02)
[2020-12-04] MEDS ORDERED: PROVENTIL INHALATION PRN (15:21)
[2020-12-04] MEDS ORDERED: NON-FORMULARY EACH (Fluticasone/Salmeterol [Advair Diskus 250-50 Mcg] 1 EACH Blst.W.Dev) PO PRN (15:21)
[2020-12-04] MEDS ORDERED: AMIODARONE 150 MG in DEXTROSE 5% IN WATER 97 ML IV ONE (15:30)
--- NOTE | 2020-12-04 15:45 | Consultation ---
History of Present Illness Consult date: 12/04/20 Requesting physician: HAN GONZALEZ Consult reason: other (aflutter w/RVR) History of present illness: Patient is a 60 y/o female, who follows with Dr. Dominguez of our group, with a PMHx of HFrEF, PAF anticoagulated on warfarin, COPD on home O2, HTN, mitral regurgitation s/p mitral replacement and tricuspid valve repair who cardiology is being consulted for aflutter with RVR. Patient came to [facility] today for a planned colonoscopy when she developed a tachycardia with rate into 140s. The patient was given metoprolol with no improvement of her heart rate. The procedure was then canceled. The patient denies any complaints of chest pain, palpitations, increased SOB, or lightheadedness. Patient reports that she felt completely fine. Past History Past Medical History: atrial fib, COPD, GERD, hypertension, hyperlipidemia Past Surgical History: Other (mitral valve replacment and tricuspid valve repair) Social history: smoking Family history: diabetes Medications and Allergies Allergies Allergy/AdvReac Type Severity Reaction Status Date / Time Iodinated Contrast Media Allergy Swelling Verified 06/02/19 10:30 morphine Allergy Rash Verified 06/02/19 10:30 Home Medications Medication Instructions Recorded Confirmed Last Taken Type Furosemide [Lasix TAB] 40 mg PO QDAY 04/25/18 06/02/19 10/07/18 History Potassium Chloride [K-Dur] 20 meq PO QDAY 04/25/18 06/02/19 10/07/18 History Arformoterol Nebu [Brovana Nebu] 15 mcg IH BID 10/14/18 06/02/19 10/07/18 History Aspirin EC 81 mg PO DAILY 10/14/18 06/02/19 10/07/18 History Fluticasone/Salmeterol [Advair 1 puff PO BID PRN 10/14/18 06/02/19 10/06/18 History Diskus 250-50 mcg] Pantoprazole [Protonix TAB] 40 mg PO DAILY 10/14/18 06/02/19 10/07/18 History Proventil Hfa 2 puff INHALATION Q4H PRN 10/14/18 06/02/19 10/07/18 History Warfarin [Coumadin] 1 mg PO DAILY 10/14/18 06/02/19 10/07/18 History Fluticasone [Flonase] 1 spray NS QDAY #1 bottle 12/26/18 06/02/19 Unknown Rx ALBUTEROL NEB's [Proventil 0.083% 2.5 mg IH Q6H PRN #1 box 12/26/19 Unknown Rx NEBS] Albuterol Mdi (or & Nicu Only) 2 puff IH QID PRN #8.5 gram 12/26/19 Unknown Rx [ProAir HFA Inhaler] Benzonatate [Tessalon Perles] 100 mg PO Q8HR #30 capsule 05/17/20 Unknown Rx predniSONE [Deltasone] 40 mg PO BID #12 tab 05/17/20 Unknown Rx Cetirizine HCl [Zyrtec 10mg tab] 10 mg PO DAILY #14 tablet 06/11/20 Unknown Rx Fluticasone [Flonase] 1 spray NS QDAY #1 bottle 06/11/20 Unknown Rx guaiFENesin ER [Mucinex ER] 600 mg PO BID #14 tablet.er 06/11/20 Unknown Rx Active Meds: Active Medications Albuterol (Albuterol 2.5 Mg/3 Ml Nebu) 2.5 mg IH Q6H PRN PRN Reason: Wheezing Arformoterol Tartrate (Arformoterol 15 Mcg/2 Ml Nebu) 15 mcg IH BID NEL Aspirin (Aspirin Ec 81 Mg Tab) 81 mg PO DAILY NEL Benzonatate (Benzonatate 100 Mg Cap) 100 mg PO Q8HR NEL Cetirizine HCl (Cetirizine 10 Mg Tab) 10 mg PO DAILY NEL Furosemide (Furosemide 40 Mg Tab) 40 mg PO QDAY NEL Guaifenesin (Guaifenesin Er 600 Mg Tab) 600 mg PO BID NEL Amiodarone HCl 900 mg/ (Dextrose) 500 mls @ 33.333 mls/hr IV DIRECT NEL; Protocol Metoprolol Tartrate (Metoprolol Tartrate 50 Mg Tab) 25 mg PO BID NEL Miscellaneous Medication (Fluticasone/Salmeterol [Advair Diskus 250-50 Mcg]) 1 puff PO BID PRN PRN Reason: Dyspnea Miscellaneous Medication (Proventil Hfa) 2 puff INHALATION Q4H PRN PRN Reason: Wheezing Pantoprazole Sodium (Pantoprazole 40 Mg Tab) 40 mg PO DAILY NEL Potassium Chloride (Potassium Chloride Er 20 Meq Tab) 20 meq PO QDAY [facility] Prednisone (Prednisone 20 Mg Tab) 40 mg PO BID [facility] Warfarin Sodium (Warfarin 2 Mg Tab) 1 mg PO DAILY [facility]; Protocol Review of Systems All systems: negative Constitutional: no weight loss, no weight gain, no fever, no sweats Ears, nose, mouth and throat: no nasal discharge, no sinus pressure, no sinus pain Cardiovascular: no chest pain, no orthopnea, no palpitations, no rapid/irregular heart beat, no edema, no shortness of breath, no dyspnea on exertion Respiratory: no cough, no cough with sputum, no shortness of breath, no dyspnea on exertion Gastrointestinal: no abdominal pain, no nausea, no vomiting Musculoskeletal: no neck stiffness, no neck pain Integumentary: no rash, no pruritis, no redness, no sores Neurological: no transient paralysis, no paralysis, no weakness, no parathesias Psychiatric: no anxiety Endocrine: no cold intolerance, no heat intolerance, no polyphagia Hematologic/Lymphatic: no easy bruising, no easy bleeding Physical Examination Vital Signs Temp Pulse Resp BP Pulse Ox 99.6 F 145 H 16 119/76 99 12/04/20 08:00 12/04/20 08:00 12/04/20 08:00 12/04/20 08:00 12/04/20 08:00 General appearance: no acute distress HEENT: Positive: PERRL Neck: Positive: trachea midline Cardiac: Positive: Irregularly Regular, Tachycardia Lungs: Positive: Normal Breath Sounds Neuro: Positive: Grossly Intact Abdomen: Positive: Soft, Active Bowel Sounds Skin: Negative: Rash, Suspicious Lesions Extremities: Present: upper extr. pulses, lower extr. pulses. Absent: edema Results 12/04/20 13:05 12/04/20 13:05 Cardiac Enzymes 12/04/20 Range/Units 13:05 AST 30 (5-40) units/L Coagulation 12/04/20 Range/Units 13:05 PT 13.7 (12.2-14.9) Sec. INR 0.99 (0.87-1.13) APTT 30.8 (24.2-36.6) Sec. CBC 12/04/20 Range/Units 13:05 WBC 8.9 (4.5-11.0) K/mm3 RBC 4.93 (3.65-5.03) M/mm3 Hgb 13.5 (10.1-14.3) gm/dl Hct 40.8 (30.3-42.9) % Plt Count 298 (140-440) K/mm3 Lymph # (Auto) 3.2 (1.2-5.4) K/mm3 [place] # (Auto) 0.8 (0.0-0.8) K/mm3 Eos # (Auto) 0.2 (0.0-0.4) K/mm3 Baso # (Auto) 0.1 (0.0-0.1) K/mm3 Comprehensive Metabolic Panel 12/04/20 Range/Units 13:05 Sodium 139 (137-145) mmol/L Potassium 4.0 (3.6-5.0) mmol/L Chloride 104.8 (98-107) mmol/L Carbon Dioxide 22 (22-30) mmol/L BUN 9 (7-17) mg/dL Creatinine 0.8 (0.6-1.2) mg/dL Glucose 114 H (65-100) mg/dL Calcium 9.1 (8.4-10.2) mg/dL AST 30 (5-40) units/L ALT 19 (7-56) units/L Alkaline Phosphatase 133 H (35-129) units/L Total Protein 7.4 (6.3-8.2) g/dL Albumin 4.1 (3.9-5) g/dL - Imaging and Cardiology Echo: report reviewed EKG: report reviewed, image reviewed EKG interpretations - Telemetry EKG Rhythm: Atrial Flutter - EKG Supraventricular dysrhythmia: atrial flutter Assessment and Plan Patient is a 60 y/o female with a PMHx of HFrEF, PAF anticoagulated on warfarin, COPD on home O2, HTN, mitral regurgitation s/p mitral replacement Aflutter w/ RVR HTN H/O HFrEF * EKG reviewed: shows aflutter 2:1 conduction w/ RVR rate 145. No acute ischemic changes. * Patient denies any symptoms * Echo 05/18/2018- This is a technically difficult study with limited views. Left ventricular ejection fraction is 55%. Mild aortic valve insufficiency. Trivial pericardial effusion. Mild tricuspid regurgitation. Mild pulmonic valve insufficiency. There is a bileaflet mechanical valve in the mitral position. The mean gradient=5mm. The leaflets appear to move freely. There is a tricuspid ring in place Mean gradient=2mm. * [facility] 05/10/2018-. No angiographically significant CAD 2. Ejection Fraction: E stimated Ejection Fraction 60 %. Plan: Initiate amio gtt. Resume home metoprolol 25mg PO BID. Echo pending. Patient to be anticoagulated on Lovenox per GI recs If patient rate controlled by tomorrow plan for colonoscopy in AM Patient seen in conjunction with Dr. Galarza who agrees with this plan of care. Will continue to follow - Patient Problems (1) Atrial flutter with rapid ventricular response Current Visit: Yes Status: Acute (2) Cholecystitis Current Visit: No Status: Acute (3) Anxiety Current Visit: No Status: Chronic (4) COPD (chronic obstructive pulmonary disease) Current Visit: No Status: Chronic (5) GERD (gastroesophageal reflux disease) Current Visit: No Status: Chronic (6) Paroxysmal atrial fibrillation with RVR Current Visit: No Status: Chronic
[2020-12-04] MEDS ORDERED: AMIODARONE 900 MG in DEXTROSE 5% IN WATER 482 ML IV SCH (16:00)
[2020-12-04] MEDS ORDERED: ACETAMINOPHEN 325 MG TAB PO PRN (16:02)
[2020-12-04] MEDS ORDERED: ONDANSETRON 4 MG/2 ML INJ IV PRN (16:02)
[2020-12-04] MEDS ORDERED: oxyCODONE /ACETAMINOPHEN 5-325MG TAB PO PRN (16:02)
[2020-12-04] MEDS ORDERED: HYDROmorphone 1 MG/1 ML INJ IV PRN (16:02)
--- NOTE | 2020-12-04 17:07 | Gastroenterology Consultation ---
History of Present Illness - Reason for Consult Consult date: 12/04/20 colonoscopy evaluation Requesting physician: HAN GONZALEZ - History of Present Illness The patient is a 60 yo female with h/o copd, aflutter, mitral valve replacement on anticoagulation initially presented for outpatient colonoscopy in hospital. She was bridging anticoagulation in preparation for colonoscopy (stopped warfarin 1 week prior and has been doing lovenox injections). This morning in pre-op, patient had HR 140-150s which did not improve with interventions. she was sent to the ER and being admitted for aflutter with rvr. Past History Past Medical History: atrial fib, COPD, GERD, hypertension, hyperlipidemia Past Surgical History: Other (mitral valve replacment and tricuspid valve repair) Social history: smoking Family history: diabetes Medications and Allergies Allergies Allergy/AdvReac Type Severity Reaction Status Date / Time Iodinated Contrast Media Allergy Swelling Verified 06/02/19 10:30 morphine Allergy Rash Verified 06/02/19 10:30 Home Medications Medication Instructions Recorded Confirmed Last Taken Type Furosemide [Lasix TAB] 40 mg PO QDAY 04/25/18 06/02/19 10/07/18 History Potassium Chloride [K-Dur] 20 meq PO QDAY 04/25/18 06/02/19 10/07/18 History Arformoterol Nebu [Brovana Nebu] 15 mcg IH BID 10/14/18 06/02/19 10/07/18 History Aspirin EC 81 mg PO DAILY 10/14/18 06/02/19 10/07/18 History Fluticasone/Salmeterol [Advair 1 puff PO BID PRN 10/14/18 06/02/19 10/06/18 History Diskus 250-50 mcg] Pantoprazole [Protonix TAB] 40 mg PO DAILY 10/14/18 06/02/19 10/07/18 History Proventil Hfa 2 puff INHALATION Q4H PRN 10/14/18 06/02/19 10/07/18 History Warfarin [Coumadin] 1 mg PO DAILY 10/14/18 06/02/19 10/07/18 History Fluticasone [Flonase] 1 spray NS QDAY #1 bottle 12/26/18 06/02/19 Unknown Rx ALBUTEROL NEB's [Proventil 0.083% 2.5 mg IH Q6H PRN #1 box 12/26/19 Unknown Rx NEBS] Albuterol Mdi (or & Nicu Only) 2 puff IH QID PRN #8.5 gram 12/26/19 Unknown Rx [ProAir HFA Inhaler] Benzonatate [Tessalon Perles] 100 mg PO Q8HR #30 capsule 05/17/20 Unknown Rx predniSONE [Deltasone] 40 mg PO BID #12 tab 05/17/20 Unknown Rx Cetirizine HCl [Zyrtec 10mg tab] 10 mg PO DAILY #14 tablet 06/11/20 Unknown Rx Fluticasone [Flonase] 1 spray NS QDAY #1 bottle 06/11/20 Unknown Rx guaiFENesin ER [Mucinex ER] 600 mg PO BID #14 tablet.er 06/11/20 Unknown Rx Active Meds: Active Medications Acetaminophen (Acetaminophen 325 Mg Tab) 650 mg PO Q4H PRN PRN Reason: Pain MILD(1-3)/Fever >100.5/ARELLANO Albuterol (Albuterol 2.5 Mg/3 Ml Nebu) 2.5 mg IH Q6H PRN PRN Reason: Wheezing Albuterol (Albuterol 2.5 Mg/3 Ml Nebu) 2.5 mg IH Q4HRT PRN PRN Reason: Shortness Of Breath Arformoterol Tartrate (Arformoterol 15 Mcg/2 Ml Nebu) 15 mcg IH BID NEL Aspirin (Aspirin Ec 81 Mg Tab) 81 mg PO DAILY NEL Benzonatate (Benzonatate 100 Mg Cap) 100 mg PO Q8HR NEL Cetirizine HCl (Cetirizine 10 Mg Tab) 10 mg PO DAILY NEL Furosemide (Furosemide 40 Mg Tab) 40 mg PO QDAY NEL Guaifenesin (Guaifenesin Er 600 Mg Tab) 600 mg PO BID NEL Hydromorphone HCl (Hydromorphone 1 Mg/1 Ml Inj) 0.5 mg IV Q23H PRN PRN Reason: Pain , Severe (7-10) Amiodarone HCl 900 mg/ (Dextrose) 500 mls @ 33.333 mls/hr IV DIRECT NEL; Protocol Last Admin: 12/04/20 16:49 Dose: 1 mg/min, 33.333 mls/hr Documented by: Metoprolol Tartrate (Metoprolol Tartrate 50 Mg Tab) 25 mg PO BID NEL Miscellaneous Medication (Fluticasone/Salmeterol [Advair Diskus 250-50 Mcg]) 1 puff PO BID PRN PRN Reason: Dyspnea Miscellaneous Medication (Proventil Hfa) 2 puff INHALATION Q4H PRN PRN Reason: Wheezing Ondansetron HCl (Ondansetron 4 Mg/2 Ml Inj) 4 mg IV Q8H PRN PRN Reason: Nausea And Vomiting Oxycodone/Acetaminophen (Oxycodone /Acetaminophen 5-325mg Tab) 1 tab PO Q12H PRN PRN Reason: Pain, Moderate (4-6) Pantoprazole Sodium (Pantoprazole 40 Mg Tab) 40 mg PO DAILY NEL Polyethylene Glycol/Electrolytes (Polyethylene Glycol/Elect Soln 4000 Ml) 4,000 ml PO ONCE ONE Stop: 12/04/20 17:01 Potassium Chloride (Potassium Chloride Er 20 Meq Tab) 20 meq PO QDAY [facility] Prednisone (Prednisone 20 Mg Tab) 40 mg PO BID NEL Sodium Chloride (Sodium Chloride 0.9% 10 Ml Flush Syringe) 10 ml IV BID NEL Sodium Chloride (Sodium Chloride 0.9% 10 Ml Flush Syringe) 10 ml IV PRN PRN PRN Reason: LINE FLUSH Warfarin Sodium (Warfarin 5 Mg Tab) 5 mg PO DAILY@1700 [facility] reviewed/updated patient's home and current medications Review of Systems - Review of Systems All systems: negative (per HPI) Exam - Constitutional Vital Signs: Temp Pulse Resp BP Pulse Ox 97.9 F 140 H 16 99/55 100 12/04/20 12:30 12/04/20 14:42 12/04/20 14:42 12/04/20 14:42 12/04/20 14:42 General appearance: no acute distress - Respiratory Respiratory effort: normal Respiratory: bilateral: CTA - Cardiovascular Rhythm: regular Heart Sounds: Present: S1 & S2 - Gastrointestinal General gastrointestinal: Present: soft, non-tender, non-distended - Neurologic Neurological: alert and oriented x3 - Psychiatric Psychiatric: appropriate mood/affect - Labs CBC & Chem 7: 12/04/20 13:05 12/04/20 13:05 Lab Results: Laboratory Results - last 24 hr 12/04/20 12/04/20 12/04/20 13:05 13:05 13:05 WBC 8.9 RBC 4.93 Hgb 13.5 Hct 40.8 MCV 83 MCH 28 MCHC 34 RDW 16.6 H Plt Count 298 Lymph % (Auto) 35.6 H [place] % (Auto) 8.8 H Eos % (Auto) 2.3 Baso % (Auto) 0.9 Lymph # (Auto) 3.2 [place] # (Auto) 0.8 Eos # (Auto) 0.2 Baso # (Auto) 0.1 Seg Neutrophils % 52.4 Seg Neutrophils # 4.7 PT INR APTT Sodium 139 Potassium 4.0 Chloride 104.8 Carbon Dioxide 22 Anion Gap 16 BUN 9 Creatinine 0.8 Estimated GFR > 60 BUN/Creatinine Ratio 11 Glucose 114 H Calcium 9.1 Total Bilirubin 1.30 H AST 30 ALT 19 Alkaline Phosphatase 133 H Troponin T 0.014 Total Protein 7.4 Albumin 4.1 Albumin/Globulin Ratio 1.2 TSH 0.856 12/04/20 13:05 WBC RBC Hgb Hct MCV MCH MCHC RDW Plt Count Lymph % (Auto) [place] % (Auto) Eos % (Auto) Baso % (Auto) Lymph # (Auto) [place] # (Auto) Eos # (Auto) Baso # (Auto) Seg Neutrophils % Seg Neutrophils # PT 13.7 INR 0.99 APTT 30.8 Sodium Potassium Chloride Carbon Dioxide Anion Gap BUN Creatinine Estimated GFR BUN/Creatinine Ratio Glucose Calcium Total Bilirubin AST ALT Alkaline Phosphatase Troponin T Total Protein Albumin Albumin/Globulin Ratio TSH Assessment and Plan 1. Personal history of colon polyps - pt was prepped for colonoscopy for today but unable to perform due to heart rate. cardiology on board, and if okay with cards, can plan colonoscopy as inpatient tomorrow as pt has been doing the bridge therapy leading to today's procedure.
[2020-12-04] MEDS ORDERED: POLYETHYLENE GLYCOL/ELECT SOLN 4000 ML PO SCH (18:00)
[2020-12-04] MEDS: BUDESONIDE 0.5 MG/2 ML NEBU IH SCH (21:50)
[2020-12-04] MEDS: ARFORMOTEROL 15 MCG/2 ML NEBU IH SCH (21:50)
[2020-12-04] MEDS: predniSONE 20 MG TAB PO SCH (23:04)
[2020-12-04] MEDS: METOPROLOL TARTRATE 25 MG TAB PO SCH (23:05)
[2020-12-04] MEDS: guaiFENesin ER 600 MG TAB PO SCH (23:05)
[2020-12-05 05:13] LABS: INR 1.05 (0.87-1.13)
[2020-12-05 05:25] LABS: Albumin 3.7 g/dL (3.9-5); Bilirubin,Direct 0.2 mg/dL (0-0.2)
[2020-12-05] MEDS ORDERED: SODIUM CHLORIDE 0.9% 1000 ML 1,000 ML ONE (09:30)
[2020-12-05] MEDS ORDERED: WARFARIN 2 MG TAB PO SCH (10:00)
--- NOTE | 2020-12-05 10:07 | Progress Note ---
Assessment and Plan Assessment and plan: Patient is a 60 y/o female, who follows with Dr. Dominguez, with a PMHx of HFrEF, PAF anticoagulated on warfarin, COPD on home O2, HTN, mitral regurgitation s/p mitral replacement and tricuspid valve repair. Patient came to [facility] today for a planned colonoscopy when she developed a tachycardia with rate into 140s. EKG revealed 2: 1 conduction with RVR rate 145 but no ischemic changes. Patient was admitted with diagnosis of A. fib/a flutter with RVR. Cardiology was consulted for aflutter with RVR. The patient was given metoprolol with no improvement of her heart rate. The procedure was then canceled. Cardiology also initiated amiodarone drip and resume home metoprolol 25 mg p.o. twice daily. A flutter with RVR. Hypertension Chronic heart failure with reduced EF. 12/05/2020. Patient is to undergo colonoscopy today. Patient currently off of amiodarone drip and rate is controlled with metoprolol 25 mg p.o. twice daily. Echocardiogram pending. History Interval history: No new issues overnight Hospitalist Physical - Constitutional Vitals: Temp Pulse Resp BP Pulse Ox 98.5 F 68 21 109/50 95 12/05/20 09:18 12/05/20 09:18 12/05/20 09:18 12/05/20 09:18 12/05/20 09:18 General appearance: Present: mild distress - EENT Eyes: Present: PERRL, EOM intact ENT: hearing intact, clear oral mucosa, dentition normal - Neck Neck: Present: supple, normal ROM - Respiratory Respiratory effort: normal Respiratory: bilateral: CTA - Cardiovascular Rhythm: regular Heart Sounds: Present: S1 & S2. Absent: gallop, rub - Extremities Extremities: no ischemia, No edema, Full ROM - Abdominal General gastrointestinal: soft, non-tender, non-distended, normal bowel sounds - Integumentary Integumentary: Present: clear, warm, dry - Neurologic Neurologic: CNII-XII intact, moves all extremities HEART Score - HEART Score Troponin: Troponin T 0.014 ng/mL (0.00-0.029) 12/04/20 13:05 Results - Labs CBC & Chem 7: 12/04/20 13:05 12/04/20 13:05 Labs: Laboratory Last Values WBC 8.9 K/mm3 (4.5-11.0) 12/04/20 13:05 RBC 4.93 M/mm3 (3.65-5.03) 12/04/20 13:05 Hgb 13.5 gm/dl (10.1-14.3) 12/04/20 13:05 Hct 40.8 % (30.3-42.9) 12/04/20 13:05 MCV 83 fl (79-97) 12/04/20 13:05 MCH 28 pg (28-32) 12/04/20 13:05 MCHC 34 % (30-34) 12/04/20 13:05 RDW 16.6 % (13.2-15.2) H 12/04/20 13:05 Plt Count 298 K/mm3 (140-440) 12/04/20 13:05 Lymph % (Auto) 35.6 % (13.4-35.0) H 12/04/20 13:05 [place] % (Auto) 8.8 % (0.0-7.3) H 12/04/20 13:05 Eos % (Auto) 2.3 % (0.0-4.3) 12/04/20 13:05 Baso % (Auto) 0.9 % (0.0-1.8) 12/04/20 13:05 Lymph # (Auto) 3.2 K/mm3 (1.2-5.4) 12/04/20 13:05 [place] # (Auto) 0.8 K/mm3 (0.0-0.8) 12/04/20 13:05 Eos # (Auto) 0.2 K/mm3 (0.0-0.4) 12/04/20 13:05 Baso # (Auto) 0.1 K/mm3 (0.0-0.1) 12/04/20 13:05 Seg Neutrophils % 52.4 % (40.0-70.0) 12/04/20 13:05 Seg Neutrophils # 4.7 K/mm3 (1.8-7.7) 12/04/20 13:05 PT 14.3 Sec. (12.2-14.9) 12/05/20 04:28 INR 1.05 (0.87-1.13) 12/05/20 04:28 APTT 30.8 Sec. (24.2-36.6) 12/04/20 13:05 Sodium 139 mmol/L (137-145) 12/04/20 13:05 Potassium 4.0 mmol/L (3.6-5.0) 12/04/20 13:05 Chloride 104.8 mmol/L (98-107) 12/04/20 13:05 Carbon Dioxide 22 mmol/L (22-30) 12/04/20 13:05 Anion Gap 16 mmol/L 12/04/20 13:05 BUN 9 mg/dL (7-17) 12/04/20 13:05 Creatinine 0.8 mg/dL (0.6-1.2) 12/04/20 13:05 Estimated GFR > 60 ml/min 12/04/20 13:05 BUN/Creatinine Ratio 11 % 12/04/20 13:05 Glucose 114 mg/dL (65-100) H 12/04/20 13:05 Calcium 9.1 mg/dL (8.4-10.2) 12/04/20 13:05 Total Bilirubin 1.10 mg/dL (0.1-1.2) 12/05/20 04:28 Direct Bilirubin 0.2 mg/dL (0-0.2) 12/05/20 04:28 Indirect Bilirubin 0.9 mg/dL 12/05/20 04:28 AST 27 units/L (5-40) 12/05/20 04:28 ALT 21 units/L (7-56) 12/05/20 04:28 Alkaline Phosphatase 117 units/L (35-129) 12/05/20 04:28 Troponin T 0.014 ng/mL (0.00-0.029) 12/04/20 13:05 Total Protein 6.7 g/dL (6.3-8.2) 12/05/20 04:28 Albumin 3.7 g/dL (3.9-5) L 12/05/20 04:28 Albumin/Globulin Ratio 1.2 % 12/05/20 04:28 TSH 0.856 mlU/mL (0.270-4.200) 12/04/20 13:05 Jones/IV: Voiding Method Toilet Active Medications - Current Medications Current Medications: Generic Name Dose Route Start Last Admin Trade Name Freq PRN Reason Stop Dose Admin Acetaminophen 650 mg 09/28/21 16:02 Acetaminophen 325 Mg Tab PO Q4H PRN Pain MILD(1-3)/Fever >100.5/ARELLANO Albuterol 2.5 mg 12/04/20 16:02 Albuterol 2.5 Mg/3 Ml Nebu IH Q4HRT PRN Shortness Of Breath Arformoterol Tartrate 15 mcg 12/04/20 20:00 12/04/20 21:50 Arformoterol 15 Mcg/2 Ml Nebu IH Not Given BIDRT [facility] Aspirin 81 mg 12/05/20 10:00 Aspirin Ec 81 Mg Tab PO DAILY [facility] Benzonatate 100 mg 12/04/20 22:00 Benzonatate 100 Mg Cap PO Q8HR [facility] Budesonide 0.5 mg 12/04/20 20:00 12/04/20 21:50 Budesonide 0.5 Mg/2 Ml Nebu IH Not Given Q12HRT [facility] Cetirizine HCl 10 mg 12/05/20 10:00 Cetirizine 10 Mg Tab PO DAILY [facility] Furosemide 40 mg 12/05/20 10:00 Furosemide 40 Mg Tab PO QDAY [facility] Guaifenesin 600 mg 12/04/20 22:00 12/04/20 23:05 Guaifenesin Er 600 Mg Tab PO 600 mg BID [facility] Administration Hydromorphone HCl 0.5 mg 12/04/20 16:02 Hydromorphone 1 Mg/1 Ml Inj IV Q3H PRN Pain , Severe (7-10) Metoprolol Tartrate 25 mg 12/04/20 22:00 12/04/20 23:05 Metoprolol Tartrate 25 Mg Tab PO 25 mg BID [facility] Administration Ondansetron HCl 4 mg 12/04/20 16:02 Ondansetron 4 Mg/2 Ml Inj IV Q8H PRN Nausea And Vomiting Oxycodone/Acetaminophen 1 tab 12/04/20 16:02 Oxycodone /Acetaminophen 5-325mg Tab PO Q12H PRN Pain, Moderate (4-6) Pantoprazole Sodium 40 mg 12/05/20 10:00 Pantoprazole 40 Mg Tab PO DAILY [facility] Potassium Chloride 20 meq 12/05/20 10:00 Potassium Chloride Er 20 Meq Tab PO QDAY [facility] Prednisone 40 mg 12/04/20 22:00 12/04/20 23:04 Prednisone 20 Mg Tab PO 40 mg BID NEL Administration Sodium Chloride 10 ml 12/04/20 22:00 12/04/20 23:06 Sodium Chloride 0.9% 10 Ml Flush Syringe IV 10 ml BID NEL Administration Sodium Chloride 10 ml 12/04/20 16:02 Sodium Chloride 0.9% 10 Ml Flush Syringe IV PRN PRN LINE FLUSH Warfarin Sodium 5 mg 12/05/20 17:00 Warfarin 5 Mg Tab PO DAILY@1700 [facility]
[2020-12-05] MEDS: BUDESONIDE 0.5 MG/2 ML NEBU IH SCH ×2 (10:09→20:01)
[2020-12-05] MEDS: ARFORMOTEROL 15 MCG/2 ML NEBU IH SCH ×2 (10:09→20:01)
[2020-12-05] MEDS ORDERED: propofoL 200 MG/20 ML VIAL IV ONE ×2 (10:11→10:13)
[2020-12-05] MEDS ORDERED: LIDOCAINE MPF (2%) 20 MG/1 ML VIAL 5 ML ONE (10:11)
[2020-12-05] MEDS: FUROSEMIDE 40 MG TAB PO SCH (10:24)
[2020-12-05] MEDS ORDERED: MIDAZOLAM 2 MG/2 ML INJ ONE (10:29)
[2020-12-05] MEDS ORDERED: KETAMINE/STERILE WATER 50 MG/ML SYRINGE ONE (10:30)
--- NOTE | 2020-12-05 10:33 | Anesthesia Day of Surgery ---
Anesthesia Day of Surgery - Day of Surgery Patient Examined: Yes Patient H&P Reviewed: Yes Patient is NPO: Yes
--- NOTE | 2020-12-05 10:33 | Anesthesia Consultation ---
Anesthesia Consult and Med Hx Date of service: 12/05/20 - Airway Anesthetic Teeth Evaluation: Edentulous ROM Head & Neck: Adequate Mental/Hyoid Distance: Adequate Mallampati Class: Class II Intubation Access Assessment: Probably Good - Pre-Operative Health Status ASA Pre-Surgery Classification: ASA3 Proposed Anesthetic Plan: MAC - Pulmonary Hx Smoking: Yes COPD: Yes Home Oxygen Therapy: Yes (2L continuously) - Cardiovascular System Hx Hypertension: Yes Hx Cardia Arrhythmia: Yes (a-flutter w/ RVR requiring amiodarone gtt this admission) Hx Pacemaker: No Hx Internal Defibrillator: No Hx Valvular Heart Disease: Yes (s/p MVR; coumadin held 6 days w/ lovenox bridge) - Central Nervous System CVA: No Hx Psychiatric Problems: Yes (anxiety on daily xanax) - Gastrointestinal Hx Gastroesophageal Reflux Disease: Yes - Endocrine Hx Renal Disease: No Hx Liver Disease: No Hx Insulin Dependent Diabetes: No Hx Non-Insulin Dependent Diabetes: No Hx Thyroid Disease: No - Other Systems Hx Obesity: No - Additional Comments Anesthesia Medical History Comments: Patient initially scheduled for outpatient colonoscopy 12/04/20 but was found to be tachycardic to 150s (see event note). Patient was found to be in a-flutter with RVR and started on amiodarone gtt. Rate now controlled off drip. No new cardiac symptoms overnight. TTE this morning showed normal EF, normal rubberizing mechanic valve function.
--- NOTE | 2020-12-05 10:52 | Operative Report ---
Operative Report Operative Report: Colonoscopy Procedure Note Date of procedure: 12/05/2020 Endoscopist: John Pierre Pre-op diagnosis/indication: Surveillance colonoscopy for personal history of colon polyps Post-op diagnosis: Small colon polyp, internal hemorrhoids MEDICATIONS: MAC COMPLICATIONS: No immediate complications ESTIMATED BLOOD LOSS: Minimal DESCRIPTION OF PROCEDURE: After consent was obtained, the patient was placed in the left lateral decubitis position. The olympus colonoscope was inserted into the rectum and advanced to the cecum without difficulty. The patient tolerated the procedure well. The views of the mucosa were good. The quality of prep was good. The patients vital signs were monitored continuously throughout the procedure. FINDINGS: There was an ~2 mm sessile polyp in the ascending colon. The polyp was removed with cold biopsy forceps, however the polyp was not retrieved. There were numerous hyperplastic polyps in the sigmoid colon. Internal hemorrhoids were visualized on forward view. IMPRESSION: 1. Small colon polyp removed with cold biopsy forceps (not retrieved). 2. Internal hemorrhoids RECOMMENDATIONS: -repeat colonoscopy in 3 years -follow-up in GI clinic as previously scheduled Patient can resume anti-coagulation per cardiology recommendations Will sign off, please call as needed.
[2020-12-05] MEDS: PANTOPRAZOLE 40 MG TAB PO SCH (11:19)
[2020-12-05] MEDS: POTASSIUM CHLORIDE ER 20 MEQ TAB PO SCH (11:20)
[2020-12-05] MEDS: CETIRIZINE 10 MG TAB PO SCH (11:21)
[2020-12-05] MEDS: ASPIRIN EC 81 MG TAB PO SCH (11:21)
[2020-12-05] MEDS: guaiFENesin ER 600 MG TAB PO SCH ×2 (11:21→21:51)
[2020-12-05] MEDS: predniSONE 20 MG TAB PO SCH ×2 (11:21→21:52)
[2020-12-05] MEDS: METOPROLOL TARTRATE 25 MG TAB PO SCH ×2 (11:53→21:51)
[2020-12-05] MEDS: BENZONATATE 100 MG CAP PO SCH ×2 (14:20→21:51)
--- NOTE | 2020-12-05 14:36 | Progress Note ---
Assessment and Plan Patient is a 60 y/o female with a PMHx of HFrEF, PAF anticoagulated on warfarin, COPD on home O2, HTN, mitral regurgitation s/p mitral replacement Aflutter w/ RVR(resolved) HTN H/O HFrEF * EKG reviewed: shows aflutter 2:1 conduction w/ RVR rate 145. No acute ischemic changes. * Patient denies any symptoms * Echo 05/18/2018- This is a technically difficult study with limited views. Left ventricular ejection fraction is 55%. Mild aortic valve insufficiency. Trivial pericardial effusion. Mild tricuspid regurgitation. Mild pulmonic valve insufficiency. There is a bileaflet mechanical valve in the mitral position. The mean gradient=5mm. The leaflets appear to move freely. There is a tricuspid ring in place Mean gradient=2mm. * [facility] 05/10/2018-. No angiographically significant CAD 2. Ejection Fraction: Estimated Ejection Fraction 60 %. * Patient converted to sinus rhythm overnight. Amio gtt stopped * Echo 12/04/2020-EF 50 to 55%, left ventricular end-diastolic pressure is elevated, right ventricular systolic function is normal, left and right atrium are normal in size mild aortic, mechanical mitral valve appears normal mild mitral regurgitation noted Plan: Continue home metoprolol 25mg PO BID. Patient to be anticoagulated with lovenox and bridged to home coumadin Patient has a follow up appointment with Dr. Dominguez, [facility], 01/04/2021 at 8:30AM in our [place] office. Patient seen in conjunction with Dr. Galarza who agrees with this plan of care. Will continue to follow - Patient Problems (1) Atrial flutter with rapid ventricular response Current Visit: Yes Status: Acute (2) Cholecystitis Current Visit: No Status: Acute (3) Anxiety Current Visit: No Status: Chronic (4) COPD (chronic obstructive pulmonary disease) Current Visit: No Status: Chronic (5) GERD (gastroesophageal reflux disease) Current Visit: No Status: Chronic (6) Paroxysmal atrial fibrillation with RVR Current Visit: No Status: Chronic Subjective Date of service: 12/05/20 Principal diagnosis: Aflutter w/ RVR Interval history: Patient for colonoscopy this AM Patient sinus 70s on monitor. Unsure when patient converted to Sinus Objective Vital Signs Temp Pulse Resp BP BP Pulse Ox 12/05/20 11:15 86 15 106/42 100 09/29/21 11:00 64 15 102/35 100 12/05/20 10:45 97.8 F 67 18 95/33 100 12/05/20 09:18 98.5 F 68 21 109/50 95 12/05/20 08:00 97.9 F 67 18 92/41 98 12/05/20 07:30 17 98 12/05/20 04:41 97.7 F 64 16 105/41 96 12/05/20 01:41 86 12/05/20 01:17 98 12/05/20 01:08 98.7 F 72 18 131/53 99 12/05/20 00:40 85 26 H 113/55 12/05/20 00:30 79 23 113/55 12/05/20 00:20 85 22 113/55 12/05/20 00:10 92 H 15 113/55 12/05/20 00:00 83 16 113/55 12/04/20 23:50 98 H 17 113/55 12/04/20 23:40 104 H 22 113/55 12/04/20 23:30 105 H 20 113/55 12/04/20 23:24 93 H 18 113/55 12/04/20 23:16 93 H 13 137/64 100 12/04/20 23:05 92 H 137/64 12/04/20 23:00 97 H 23 113/55 99 12/04/20 22:45 113/55 78 L 12/04/20 22:30 79 19 113/55 100 12/04/20 22:16 77 19 102/50 100 12/04/20 22:00 81 18 102/50 99 12/04/20 21:46 82 17 98/46 100 12/04/20 21:30 82 18 94/73 98 12/04/20 21:16 107 H 20 98/46 99 12/04/20 21:00 96 H 18 98/46 12/04/20 20:52 101 H 98/46 12/04/20 20:16 83 18 98/46 12/04/20 20:00 81 16 98/46 100 12/04/20 19:46 77 15 95/43 100 12/04/20 19:30 77 19 95/43 100 12/04/20 19:16 78 15 95/56 100 12/04/20 19:00 84 20 95/56 12/04/20 18:46 96 H 18 95/56 12/04/20 18:30 95 H 15 95/56 12/04/20 18:16 112 H 20 95/56 12/04/20 18:00 144 H 21 109/72 12/04/20 17:46 145 H 21 109/72 97 12/04/20 17:32 147 H 16 109/72 12/04/20 17:16 119 H 21 95/56 99 12/04/20 17:00 116 H 18 98 12/04/20 16:46 148 H 19 109/72 99 12/04/20 16:30 149 H 19 109/72 100 12/04/20 16:16 148 H 20 92/57 100 12/04/20 16:00 152 H 21 92/57 99 12/04/20 15:46 94 H 15 103/60 100 12/04/20 15:30 150 H 19 103/60 100 12/04/20 15:16 148 H 17 93/66 100 12/04/20 15:00 147 H 17 93/66 99 12/04/20 14:46 148 H 18 99/55 99 12/04/20 14:42 140 H 16 99/55 100 12/04/20 14:30 147 H 17 99/55 100 - Physical Examination General: Appears Well HEENT: Positive: PERRL Neck: Positive: trachea midline Cardiac: Positive: Reg Rate and Rhythm Lungs: Positive: Normal Breath Sounds Neuro: Positive: Grossly Intact Abdomen: Positive: Soft, Active Bowel Sounds Skin: Negative: Rash, Suspicious Lesions Extremities: Present: upper extr. pulses, lower extr. pulses. Absent: edema - Labs and Meds Cardiac Enzymes 12/05/20 Range/Units 04:28 AST 27 (5-40) units/L Coagulation 12/05/20 Range/Units 04:28 PT 14.3 (12.2-14.9) Sec. INR 1.05 (0.87-1.13) Comprehensive Metabolic Panel 12/05/20 Range/Units 04:28 Direct Bilirubin 0.2 (0-0.2) mg/dL Indirect Bilirubin 0.9 mg/dL AST 27 (5-40) units/L ALT 21 (7-56) units/L Alkaline Phosphatase 117 (35-129) units/L Total Protein 6.7 (6.3-8.2) g/dL Albumin 3.7 L (3.9-5) g/dL - Imaging and Cardiology EKG: report reviewed, image reviewed Echo: report reviewed - Telemetry EKG Rhythm: Sinus Rhythm - EKG Sinus rhythms and dysrhythmias: sinus rhythm
--- NOTE | 2020-12-05 15:23 | Post Anesthesia Evaluation ---
- Post Anesthesia Evaluation Patient Participated: Yes Airway Patent: Yes Stable Respiratory Function: Yes Nausea/Vomiting: No Temp > 96.8F: Yes Pain Manageable: Yes Adequeate Hydration: Yes Anesthesia Complications: No
[2020-12-05] MEDS ORDERED: WARFARIN 5 MG TAB PO SCH (17:00)
[2020-12-05] MEDS ORDERED: WARFARIN 1 MG TAB PO SCH ×2 (17:00)
[2020-12-05] MEDS: ENOXAPARIN 60 MG/0.6 ML INJ SUB-Q SCH (21:52)
[2020-12-06 06:11] LABS: INR 0.91 (0.87-1.13)
[2020-12-06] MEDS: BENZONATATE 100 MG CAP PO SCH (07:14)
--- NOTE | 2020-12-06 08:29 | Discharge Summary ---
Providers - Providers Date of Admission: 12/04/20 16:03 Date of discharge: 12/06/20 Attending physician: YAO ENGLAND 12/04/20 14:53 Consult to Cardiology [CONS] Routine Consulting Provider: GM LIANG Reason For Exam: Atrial fibrillation with RVR 12/05/20 10:00 Consult to Dietitian/Nutrition [CONS] Routine Physician Instructions: Reason For Exam: Reason for Consult: Malnutrition Primary care physician: TWISTER HAND Hospitalization Reason for admission: A flutter with RVR Condition: Serious Hospital course: Patient is a 60 y/o female, who follows with Dr. Mcfarland of cardiology, with a PMHx of HFrEF, PAF anticoagulated on warfarin, COPD on home O2, HTN, mitral regurgitation s/p mitral replacement and tricuspid valve repair. Patient came to [facility] today for a planned colonoscopy when she developed a tachycardia with rate into 140s. EKG revealed 2: 1 conduction with RVR rate 145 but no ischemic changes. Patient was admitted with diagnosis of A. fib/a flutter with RVR, hypertension, chronic heart failure with reduced EF, and colon polyp. Cardiology was consulted for aflutter with RVR. The patient was given metoprolol with no improvement of her heart rate. The procedure was then canceled. Cardiology also initiated amiodarone drip and resumed home metoprolol 25 mg p.o. twice daily. Amiodarone drip was later discontinued and patient's rate was controlled with her home medication of metoprolol. Gastroenterology performed colonoscopy which revealed internal hemorrhoids and a small colon polyp removed with cold biopsy. The patient tolerated procedure well and patient's rate remained controlled. Therefore patient is felt to receive maximal hospital be nefit and will be discharged home. Patient is to resume her regimen for anticoagulation. Dedicated discharge time 35 minutes Disposition: 01 HOME / SELF CARE / HOMELESS Final Discharge Diagnosis (Prints w/discharge instructions): A. fib/a flutter with RVR, hypertension, chronic heart failure with reduced EF, and colon polyp. Core Measure Documentation - Palliative Care Palliative Care/ Comfort Measures: Not Applicable - Core Measures Any of the following diagnoses?: none Exam - Constitutional Vitals: Temp Pulse Resp BP Pulse Ox 98.6 F 85 20 103/46 95 12/05/20 23:25 12/06/20 01:00 12/05/20 23:25 12/05/20 23:25 12/05/20 23:25 General appearance: Present: no acute distress, well-nourished - EENT Eyes: Present: PERRL ENT: hearing intact, clear oral mucosa - Neck Neck: Present: supple, normal ROM - Respiratory Respiratory effort: normal Respiratory: bilateral: CTA - Cardiovascular Heart Sounds: Present: S1 & S2. Absent: rub, click - Extremities Extremities: pulses symmetrical, No edema Peripheral Pulses: within normal limits - Abdominal General gastrointestinal: Present: soft, non-tender, non-distended, normal bowel sounds Female genitourinary: Present: normal - Integumentary Integumentary: Present: clear, warm, dry - Musculoskeletal Musculoskeletal: gait normal, strength equal bilaterally - Psychiatric Psychiatric: appropriate mood/affect, intact judgment & insight - Neurologic Neurologic: CNII-XII intact, moves all extremities Plan Activity: advance as tolerated Weight Bearing Status: Weight Bear as Tolerated Diet: low fat, low cholesterol, low salt Follow up with: PRIMARY CARE, [Primary Care Provider] - 7 Days ANGI DE LA ROSA MD [Staff Physician] - 7 Days VARGHESE MCFARLAND MD [Staff Physician] - 7 Days Forms: Warfarin Discharge Instruction Prescriptions: Warfarin [Coumadin] 1 mg PO DAILY #30 Enoxaparin 60 mg SUB-Q Q12HR 7 Days syringe Metoprolol [Lopressor TAB] 25 mg PO BID #60 tablet
[2020-12-06] MEDS: ARFORMOTEROL 15 MCG/2 ML NEBU IH SCH (08:53)
[2020-12-06] MEDS: BUDESONIDE 0.5 MG/2 ML NEBU IH SCH (08:53)
[2020-12-06] MEDS: FUROSEMIDE 40 MG TAB PO SCH (09:40)
[2020-12-06] MEDS: guaiFENesin ER 600 MG TAB PO SCH (09:40)
[2020-12-06] MEDS: predniSONE 20 MG TAB PO SCH (09:40)
[2020-12-06] MEDS: PANTOPRAZOLE 40 MG TAB PO SCH (09:40)
[2020-12-06] MEDS: ASPIRIN EC 81 MG TAB PO SCH (09:40)
[2020-12-06] MEDS: ENOXAPARIN 60 MG/0.6 ML INJ SUB-Q SCH (09:40)
[2020-12-06] MEDS: POTASSIUM CHLORIDE ER 20 MEQ TAB PO SCH (09:40)
[2020-12-06] MEDS: CETIRIZINE 10 MG TAB PO SCH (09:40)
[2020-12-06] MEDS: METOPROLOL TARTRATE 25 MG TAB PO SCH (09:40)
[2020-12-06 09:41] VITALS: BP 112/77
--- NOTE | 2020-12-06 15:43 | Progress Note ---
Assessment and Plan Echo reviewed - normal LVSF, elevated LVEDP, mild AR, trace TR, RVSP 27mmHg, mech MV appears normal with leaflets moving normally and no significant gradient noted, mild MR. Continue Coumadin/Lovenox bridging per directions provided by [facility] for target INR 2.5-3.5. Pt will be on SQ Lovenox 70mg q12h, along with Coumadin 2mg daily on Thu & Th and 4mg daily on Thu-Thu & Thu-Sat. Follow-up for INR check on 12/10/2020. Pt seen in conjunction with Dr. Galarza, who agrees with the assessment and plan of care. - Patient Problems (1) Chronic respiratory failure Status: Acute (2) COPD (chronic obstructive pulmonary disease) Status: Chronic (3) Chronic heart failure with preserved ejection fraction (HFpEF) Status: Chronic (4) PAF (paroxysmal atrial fibrillation) Status: Chronic (5) H/O mitral valve replacement with mechanical valve Status: Chronic (6) H/O tricuspid valve repair Status: Chronic (7) HTN (hypertension) Status: Chronic Qualifiers: Hypertension type: primary hypertension Qualified Code(s): I10 - Essential (primary) hypertension (8) HLD (hyperlipidemia) Status: Chronic Qualifiers: Hyperlipidemia type: mixed hyperlipidemia Qualified Code(s): E78.2 - Mixed hyperlipidemia (9) Normal coronary arteries Status: Chronic Subjective Date of service: 12/06/20 Principal diagnosis: AFlutter Interval history: Pt states she is feeling great and is ready to go home. Remains in SR on tele. Objective Last Vital Signs Temp 98.2 F 12/06/20 08:18 Pulse 74 12/06/20 09:40 Resp 16 12/06/20 08:53 BP 112/77 12/06/20 09:40 Pulse Ox 96 12/06/20 09:03 - Physical Examination General: No Apparent Distress HEENT: Positive: EOMI, Normocephaly Neck: Positive: neck supple, trachea midline. Negative: JVD/HJR Cardiac: Positive: Reg Rate and Rhythm, S1/S2 Lungs: Positive: clear to auscultation Neuro: Positive: Grossly Intact Abdomen: Positive: Soft. Negative: Tender Skin: Negative: Rash Musculoskeletal: No Pain, Normal Range of Motion Extremities: Present: upper extr. pulses, lower extr. pulses. Absent: edema - Labs and Meds Coagulation 12/06/20 Range/Units 04:50 PT 12.9 (12.2-14.9) Sec. INR 0.91 (0.87-1.13) - Imaging and Cardiology EKG: report reviewed, image reviewed Echo: report reviewed Cardiac cath: report reviewed - Telemetry EKG Rhythm: Sinus Rhythm - EKG Sinus rhythms and dysrhythmias: sinus rhythm
--- NOTE | 2020-12-10 14:11 | Electrocardiograph Report ---
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
--- NOTE | 2020-12-10 14:15 | Electrocardiograph Report ---
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
== END 2020-12-06 10:27 | disposition home or self-care (01) ==
LOC: GIO 07:49 → ED 07:49 → EDSTATUS 10:00 → 4A 16:03
PROVIDERS: ADMIT Internal Medicine; ATTEND Hospitalist
DX: I48.92 Unspecified atrial flutter (principal); I48.20 Chronic atrial fibrillation, unspecified; K63.5 Polyp of colon; I11.0 Hypertensive heart disease with heart failure; I50.9 Heart failure, unspecified; J44.9 Chronic obstructive pulmonary disease, unspecified; K21.9 Gastro-esophageal reflux disease without esophagitis; K64.8 Other hemorrhoids; K81.9 Cholecystitis, unspecified; F41.9 Anxiety disorder, unspecified; F17.210 Nicotine dependence, cigarettes, uncomplicated; R00.0 Tachycardia, unspecified; Z79.82 Long term (current) use of aspirin; Z79.01 Long term (current) use of anticoagulants; Z79.899 Other long term (current) drug therapy; Z98.890 Other specified postprocedural states
CPT/HCPCS: 36415; 45380; 71045; 80053; 80076; 84443; 84484; 85025; 85610; 85730; 93005; 93306; 94640; 96365; 96372; 96376; 99291; G0378; J0282; J1650; J2250; J2704; J3490; J7030; J7040; J7060; J7512

== ENCOUNTER 2021-01-26 04:14 | Emergency (ER) | payer MEDICARE ==
[2021-01-26] MEDS ORDERED: KETOROLAC 30 MG/1 ML INJ IV ONE (04:52)
[2021-01-26] MEDS ORDERED: ONDANSETRON 4 MG/2 ML INJ IV ONE (04:52)
--- NOTE | 2021-01-26 05:02 | Emergency Department Report ---
<MAXINE ARCEO - Last Filed: 01/26/21 07:22> ED Abdominal Pain HPI - General Chief Complaint: Abdominal Pain Stated Complaint: STOMACH PAIN Source: patient Mode of arrival: Ambulatory Limitations: No Limitations - History of Present Illness Initial Comments: Patient is a 60-year-old -M[place] female with a history of asthma, COPD, hypertension, GERD and CHF who presents to the ED with acute onset persistent left lower quadrant pain with nausea for the last 2 days. Patient states that the pain is worse with any movement or palpation. Patient denies dizziness, syncope, fever, chills, dysuria, urinary frequency and urgency, vaginal bleeding, vaginal discharge, low back pain, chest pain or shortness of breath, MD Complaint: abdominal pain (LLQ pain) -: Sudden, days(s) (2) Location: LLQ, epigastric Radiation: LLQ Migration to: LLQ, suprapubic Severity: severe Severity scale (0 -10): 8 Quality: aching, sharp Consistency: constant Improves With: nothing Worsens With: movement Associated Symptoms: denies other symptoms, nausea, anorexia. denies: vomiting, diarrhea, fever, chills, constipation, dysuria, hematemesis, hematochezia, melena, hematuria, syncope - Related Data Home Medications Medication Instructions Recorded Confirmed Last Taken Furosemide [Lasix TAB] 40 mg PO QDAY 04/25/18 12/05/20 12/03/20 09:00 Potassium Chloride [K-Dur] 20 meq PO QDAY 04/25/18 12/05/20 12/04/20 09:00 Arformoterol Nebu [Brovana Nebu] 15 mcg IH BID 10/14/18 12/05/20 10/07/18 Aspirin EC [Halfprin EC] 81 mg PO DAILY 10/14/18 12/05/20 12/04/20 09:00 Fluticasone/Salmeterol [Advair 1 puff PO BID PRN 10/14/18 12/05/20 10/06/18 Diskus 250-50 mcg] Pantoprazole [Protonix TAB] 40 mg PO DAILY 10/14/18 12/05/20 12/03/20 09:00 Proventil Hfa 2 puff INHALATION Q4H PRN 10/14/18 12/05/20 12/02/20 13:00 Previous Rx's Medication Instructions Recorded Last Taken Type Fluticasone [Flonase] 1 spray NS QDAY #1 bottle 12/26/18 Unknown Rx ALBUTEROL NEB's [Proventil 0.083% 2.5 mg IH Q6H PRN #1 box 12/26/19 Unknown Rx NEBS] Albuterol Mdi (or & Nicu Only) 2 puff IH QID PRN #8.5 gram 12/26/19 Unknown Rx [ProAir HFA Inhaler] Benzonatate [Tessalon Perles] 100 mg PO Q8HR #30 capsule 05/17/20 Unknown Rx predniSONE [Deltasone] 40 mg PO BID #12 tab 05/17/20 Unknown Rx Cetirizine HCl [Zyrtec 10mg tab] 10 mg PO DAILY #14 tablet 06/11/20 Unknown Rx Fluticasone [Flonase] 1 spray NS QDAY #1 bottle 06/11/20 Unknown Rx guaiFENesin ER [Mucinex ER] 600 mg PO BID #14 tablet.er 06/11/20 Unknown Rx Enoxaparin 60 mg SUB-Q Q12HR 7 Days syringe 12/06/20 Unknown Rx Metoprolol [Lopressor TAB] 25 mg PO BID #60 tablet 12/06/20 Unknown Rx Warfarin [Coumadin] 1 mg PO DAILY #30 12/06/20 Unknown Rx HYDROcodone/APAP 5-325 [[place] 1 each PO Q4HR PRN #12 tablet 01/26/21 Unknown Rx 5/325] Allergies Allergy/AdvReac Type Severity Reaction Status Date / Time Iodinated Contrast Media Allergy Swelling Verified 06/02/19 10:30 morphine Allergy Rash Verified 06/02/19 10:30 ED Review of Systems Constitutional: denies: chills, fever Eyes: denies: eye pain, eye discharge, vision change ENT: denies: ear pain, throat pain Respiratory: denies: cough, shortness of breath, wheezing Cardiovascular: denies: chest pain, palpitations Endocrine: no symptoms reported Gastrointestinal: abdominal pain (LLQ pain), nausea. denies: diarrhea Genitourinary: denies: urgency, dysuria, frequency, discharge, abnormal menses Musculoskeletal: denies: back pain, joint swelling, arthralgia Skin: denies: rash, lesions Neurological: denies: headache, weakness, paresthesias Psychiatric: denies: anxiety, depression Hematological/Lymphatic: denies: easy bleeding, easy bruising ED Past Medical Hx - Past Medical History Previous Medical History?: Yes Hx Hypertension: Yes Hx CVA: No Hx Heart Attack/AMI: No Hx Congestive Heart Failure: Yes Hx Diabetes: No Hx Deep Vein Thrombosis: No Hx Pulmonary Embolism: No Hx GERD: Yes Hx Liver Disease: No Hx Renal Disease: No Hx Sickle Cell Disease: No Hx Arthritis: No Hx Headaches / Migraines: No Hx Seizures: No Hx Kidney Stones: No Hx Psychiatric Treatment: No Hx Asthma: Yes Hx COPD: Yes Hx Tuberculosis: No Hx Dementia: No Hx HIV: No Additional medical history: gall stones, fibroids, MVP, myomectomy. A. fib with rvr - Surgical History Past Surgical History?: Yes Hx Coronary Stent: No Hx Open Heart Surgery: Yes (Mitral and Tricuspid valve replacement/surgery (based on cxr) 05/2018) Hx Pacemaker: No Hx Internal Defibrillator: No Hx Cholecystectomy: No Hx Appendectomy: No Hx Breast Surgery: No Additional Surgical History: fibroid removal - Social History Smoking Status: Current Every Day Smoker Substance Use Type: None - Medications Home Medications: Home Medications Medication Instructions Recorded Confirmed Last Taken Type Furosemide [Lasix TAB] 40 mg PO QDAY 04/25/18 12/05/20 12/03/20 09:00 History Potassium Chloride [K-Dur] 20 meq PO QDAY 04/25/18 12/05/20 12/04/20 09:00 History Arformoterol Nebu [Brovana Nebu] 15 mcg IH BID 10/14/18 12/05/20 10/07/18 History Aspirin EC [Halfprin EC] 81 mg PO DAILY 10/14/18 12/05/20 12/04/20 09:00 History Fluticasone/Salmeterol [Advair 1 puff PO BID PRN 10/14/18 12/05/20 10/06/18 History Diskus 250-50 mcg] Pantoprazole [Protonix TAB] 40 mg PO DAILY 10/14/18 12/05/20 12/03/20 09:00 History Proventil Hfa 2 puff INHALATION Q4H PRN 10/14/18 12/05/20 12/02/20 13:00 History Fluticasone [Flonase] 1 spray NS QDAY #1 bottle 12/26/18 12/05/20 Unknown Rx ALBUTEROL NEB's [Proventil 0.083% 2.5 mg IH Q6H PRN #1 box 12/26/19 12/05/20 Unknown Rx NEBS] Albuterol Mdi (or & Nicu Only) 2 puff IH QID PRN #8.5 gram 12/26/19 12/05/20 Unknown Rx [ProAir HFA Inhaler] Benzonatate [Tessalon Perles] 100 mg PO Q8HR #30 capsule 05/17/20 12/05/20 Unknown Rx predniSONE [Deltasone] 40 mg PO BID #12 tab 05/17/20 12/05/20 Unknown Rx Cetirizine HCl [Zyrtec 10mg tab] 10 mg PO DAILY #14 tablet 06/11/20 12/05/20 Unknown Rx Fluticasone [Flonase] 1 spray NS QDAY #1 bottle 06/11/20 12/05/20 Unknown Rx guaiFENesin ER [Mucinex ER] 600 mg PO BID #14 tablet.er 06/11/20 12/05/20 Unknown Rx Enoxaparin 60 mg SUB-Q Q12HR 7 Days syringe 12/06/20 Unknown Rx Metoprolol [Lopressor TAB] 25 mg PO BID #60 tablet 12/06/20 Unknown Rx Warfarin [Coumadin] 1 mg PO DAILY #30 12/06/20 Unknown Rx HYDROcodone/APAP 5-325 [[place] 1 each PO Q4HR PRN #12 tablet 01/26/21 Unknown Rx 5/325] ED Physical Exam - General Limitations: No Limitations General appearance: alert, in no apparent distress - Head Head exam: Present: atraumatic, normocephalic, normal inspection - Eye Eye exam: Present: normal appearance, PERRL, EOMI Pupils: Present: normal accommodation - ENT ENT exam: Present: normal exam, normal orophraynx, mucous membranes moist, TM's normal bilaterally, normal external ear exam - Neck Neck exam: Present: normal inspection, full ROM - Respiratory Respiratory exam: Present: normal lung sounds bilaterally. Absent: respiratory distress, wheezes, rales, stridor, chest wall tenderness, accessory muscle use, decreased breath sounds, prolonged expiratory - Cardiovascular Cardiovascular Exam: Present: regular rate, normal rhythm, normal heart sounds. Absent: systolic murmur, diastolic murmur, rubs, gallop - GI/Abdominal GI/Abdominal exam: Present: soft, tenderness (Palpable left lower quadrant tenderness), normal bowel sounds. Absent: guarding, rebound, hyperactive bowel sounds, mass - Extremities Exam Extremities exam: Present: normal inspection, full ROM, normal capillary refill - Back Exam Back exam: Present: normal inspection, full ROM. Absent: tenderness, CVA tenderness (R), CVA tenderness (L), muscle spasm, paraspinal tenderness, vertebral tenderness - Neurological Exam Neurological exam: Present: alert, oriented X3, CN II-XII intact, normal gait, reflexes normal - Psychiatric Psychiatric exam: Present: normal affect, normal mood - Skin Skin exam: Present: warm, dry, intact, normal color. Absent: rash ED Medical Decision Making - Lab Data Result diagrams: 01/26/21 04:57 01/26/21 04:57 - Radiology Data Radiology results: report reviewed, image reviewed - Medical Decision Making This is a 60-year-old -[place] female with a history of asthma, COPD, hypertension, GERD and CHF who presents to the ED with acute onset persistent left lower quadrant pain with nausea for the last 2 days. Patient states that the pain is worse with any movement or palpation. In the ED, patient is alert and oriented x3 and is not in any distress. Lab test results were reviewed and are all nonactionable. Patient was treated for pain in the ED. Abdomen pelvis CT scan without contrast was ordered and is pending. At shift change, patient care was transferred to Ms. Graciela Burroughs PA-C at 0700 hrs. She shall review all lab test results, imaging report and disposition patient accordingly. - Differential Diagnosis Diverticulitis; UTI; colitis; appendicitis; kidney stone; ovarian cyst ED Disposition Clinical Impression: Acute abdominal pain in left lower quadrant Disposition: 01 HOME / SELF CARE / HOMELESS Condition: Stable Instructions: Abdominal Pain (ED), Abdominal Pain, Adult, [id number] Additional Instructions: I recommend that you take the hydrocodone as prescribed to help with pain. I do recommend lots of water and doing a high-fiber diet. Follow-up closely with y our PCP and your GI specialist next week. Return to the ER if your pain worsens or changes in any way. Prescriptions: HYDROcodone/APAP 5-325 [[place] 5/325] 1 each PO Q4HR PRN #12 tablet PRN Reason: Pain Referrals: PRIMARY CARE, [Primary Care Provider] - 3-5 Days <GRACIELA BURROUGHS - Last Filed: 01/26/21 08:13> ED Review of Systems ROS: Stated complaint: STOMACH PAIN Other details as noted in HPI ED Course Vital Signs 01/26/21 04:18 Temperature 98.4 F Pulse Rate 89 Respiratory 18 Rate Blood Pressure 138/65 O2 Sat by Pulse 99 Oximetry ED Medical Decision Making - Lab Data Result diagrams: 01/26/21 04:57 01/26/21 04:57 - Radiology Data Patient: KAYLEE RAMEY MR#: [id number] 97 : 1960 Acct:[id number] Age/Sex: 60 / F ADM Date: 01/26/21 Loc: ED Attending Dr: Ordering Physician: AMISH FUENTES Date of Service: 01/26/21 Procedure(s): CT abdomen pelvis wo con Accession Number(s): [id number] cc: AMISH FUENTES CT ABDOMEN AND PELVIS WITHOUT CONTRAST INDICATION / CLINICAL INFORMATION: LLQ Abdominal. TECHNIQUE: Axial CT images were obtained through the abdomen and pelvis without IV contrast. All CT scans at this location are performed using CT dose reduction for ALARA by means of automated exposure control. COMPARISON: CT from 09/06/2018 FINDINGS: LOWER CHEST: Mild cardiac enlargement with mild bibasilar edema. LIVER: No significant abnormality GALLBLADDER/BILIARY TREE: Cholecystectomy. PANCREAS: No significant abnormality SPLEEN: No significant abnormality ADRENALS: No significant abnormality KIDNEYS / URETER: Right kidney is normally positioned without acute abnormality. Left pelvic kidney appears unremarkable. URINARY BLADDER: Bladder is partially decompressed, though grossly unre markable. REPRODUCTIVE ORGANS: No significant abnormality STOMACH / BOWEL: No evidence of bowel obstruction or inflammation. The appendix is normal in caliber. LYMPH NODES: No significant adenopathy. VASCULATURE: Severe atherosclerotic calcification without acute abnormality. OTHER: No free air, free fluid, or focal fluid collection is identified. SKELETAL SYSTEM: Degenerative changes of the spine. No acute osseous findings. IMPRESSION: 1. No acute abnormality of the abdomen or pelvis. No evidence of bowel inflammation or obstruction. 2. Stable chronic and incidental findings as above. Signer Name: Kinsey Richard MD Signed: 01/26/2021 7:35 AM Workstation Name: [id number] Transcribed By: GERARD Dictated By: KINSEY RICHARD MD Electronically Authenticated By: KINSEY RICHARD MD Signed Date/Time: 01/26/21734 DD/ 0 TD/TT: - Medical Decision Making 0806: CT abdomen and pelvis without contrast negative for anything acute. Labs reviewed and unremarkable. Patient was sleeping when I walked in room, she was easily arousable, when asked about her pain she states it was still an 8/10. Abdominal exam showed soft abdomen with mild ttp in LLQ but no guarding, no distension or rigidity. Discussed All results with patient including CT results. Patient stated she had colonoscopy december of this year and it was normal. Exact cause of pain unclear. At this time there is no indication for admission or emergent surgical consult. Recommended to patient to f/u closely with her PCP and GI specialist especially if pain persist but informed to return if pain worsens or changes. Patient expressed understanding and agree with plan. Patient was stable at time of discharge. Critical care attestation.: If time is entered above; I have spent that time in minutes in the direct care of this critically ill patient, excluding procedure time. ED Disposition Is pt being admited?: No Does the pt Need Aspirin: No Time of Disposition: 08:13
[2021-01-26 05:07] LABS: Bilirubin,Urine NEG (Negative); Blood,Urine NEG (Negative); Color,Urine Yellow (Yellow); Mucus,Urine FEW /HPF; Protein,Urine <15 mg/dL mg/dL (Negative); WBC,Urine < 1.0 /HPF (0.0-6.0)
[2021-01-26 05:23] LABS: Basophils # (Auto) 0.1 K/mm3 (0.0-0.1); Basophils % (Auto) 0.7 % (0.0-1.8); Eosinophils # (Auto) 0.3 K/mm3 (0.0-0.4); Eosinophils % (Auto) 3.7 % (0.0-4.3); Hematocrit 38.7 % (30.3-42.9); Hemoglobin 12.5 gm/dl (10.1-14.3); Lymphocytes # (Auto) 3.4 K/mm3 (1.2-5.4); Lymphocytes % (Auto) 37.4 % (13.4-35.0); Mean Corpuscular HGB Conc 32 % (30-34); Mean Corpuscular Volume 84 fl (79-97); Monocytes # (Auto) 0.7 K/mm3 (0.0-0.8); Monocytes % (Auto) 7.8 % (0.0-7.3); Platelet Count 335 K/mm3 (140-440); Red Blood Count 4.63 M/mm3 (3.65-5.03); Red Cell Distribution Width 16.5 % (13.2-15.2)
[2021-01-26] MEDS ORDERED: LORazepam 2 MG/ML VIAL ONE (05:25)
[2021-01-26] MEDS ORDERED: LORazepam 2 MG/ML VIAL IM SCH ×2 (05:30→05:45)
[2021-01-26 05:39] LABS: Alanine Aminotransferase 13 units/L (7-56); Albumin 4.4 g/dL (3.9-5); BUN/Creatinine Ratio 13; Blood Urea Nitrogen 12 mg/dL (7-17); Calcium 9.8 mg/dL (8.4-10.2); Hemolysis Index 8
--- NOTE | 2021-01-26 07:40 | Cat Scan Report ---
CT ABDOMEN AND PELVIS WITHOUT CONTRAST INDICATION / CLINICAL INFORMATION: [facility] Abdominal. TECHNIQUE: Axial CT images were obtained through the abdomen and pelvis without IV contrast. All CT scans at this location are performed using CT dose reduction for ALARA by means of automated exposure control. COMPARISON: CT from 09/06/2018 FINDINGS: LOWER CHEST: Mild cardiac enlargement with mild bibasilar edema. LIVER: No significant abnormality GALLBLADDER/BILIARY TREE: Cholecystectomy. PANCREAS: No significant abnormality SPLEEN: No significant abnormality ADRENALS: No significant abnormality KIDNEYS / URETER: Right kidney is normally positioned without acute abnormality. Left pelvic kidney a ppears unremarkable. URINARY BLADDER: Bladder is partially decompressed, though grossly unremarkable. REPRODUCTIVE ORGANS: No significant abnormality STOMACH / BOWEL: No evidence of bowel obstruction or inflammation. The appendix is normal in caliber. LYMPH NODES: No significant adenopathy. VASCULATURE: Severe atherosclerotic calcification without acute abnormality. OTHER: No free air, free fluid, or focal fluid collection is identified. SKELETAL SYSTEM: Degenerative changes of the spine. No acute osseous findings. IMPRESSION: 1. No acute abnormality of the abdomen or pelvis. No evidence of bowel inflammation or obstruction. 2. Stable chronic and incidental findings as above. Signer Name: Howie Richard MD Signed: 01/26/2021 7:35 AM Workstation Name: [id number]
[2021-01-26 08:16] VITALS: BP 121/51
== END 2021-01-26 08:26 | disposition home or self-care (01) ==
LOC: ED 04:14
DX: R10.32 Left lower quadrant pain (principal); I11.0 Hypertensive heart disease with heart failure; I50.9 Heart failure, unspecified; K21.9 Gastro-esophageal reflux disease without esophagitis; J45.909 Unspecified asthma, uncomplicated; J44.9 Chronic obstructive pulmonary disease, unspecified; K80.80 Other cholelithiasis without obstruction; D21.9 Benign neoplasm of connective and other soft tissue, unspecified; Z98.890 Other specified postprocedural states; F17.200 Nicotine dependence, unspecified, uncomplicated; Z91.041 Radiographic dye allergy status; Z88.5 Allergy status to narcotic agent
CPT/HCPCS: 36415; 74176; 80053; 81001; 83690; 85025; 96372; 99284; J2060

== ENCOUNTER 2021-06-16 16:12 | Emergency (ER) | payer MEDICARE ==
[2021-06-16] MEDS ORDERED: PANTOPRAZOLE 40 MG INJ IV ONE (18:12)
--- NOTE | 2021-06-16 18:31 | Emergency Department Report ---
ED Abdominal Pain HPI - General Chief Complaint: Rectal Pain Stated Complaint: BLEEDING FROM RECTUM Time Seen by Provider: 06/16/21 16:58 Source: patient Mode of arrival: Ambulatory Limitations: No Limitations - History of Present Illness Initial Comments: Patient is a 60-year-old female presents emergency department complaint of rectal bleeding. Patient states that she noticed pinkish blood in her stools and when wiping. Patient also notes she has had some left lower quadrant and lower abdominal pain. She states that sharp and notes it worsens when she is using the restroom. She states she is currently taking Coumadin. Patient has history of cholecystectomy and hernia repair surgery. Patient states that her last dose of Coumadin was today at 5 PM. Severity scale (0 -10): 5 - Related Data Home Medications Medication Instructions Recorded Confirmed Last Taken Furosemide [Lasix TAB] 40 mg PO QDAY 04/25/18 12/05/20 12/03/20 09:00 Potassium Chloride [K-Dur] 20 meq PO QDAY 04/25/18 12/05/20 12/04/20 09:00 Arformoterol Nebu [Brovana Nebu] 15 mcg IH BID 10/14/18 12/05/20 10/07/18 Aspirin EC [Halfprin EC] 81 mg PO DAILY 10/14/18 12/05/20 12/04/20 09:00 Fluticasone/Salmeterol [Advair 1 puff PO BID PRN 10/14/18 12/05/20 10/06/18 Diskus 250-50 mcg] Pantoprazole [Protonix TAB] 40 mg PO DAILY 10/14/18 12/05/20 12/03/20 09:00 Proventil Hfa 2 puff INHALATION Q4H PRN 10/14/18 12/05/20 12/02/20 13:00 Previous Rx's Medication Instructions Recorded Last Taken Type Fluticasone [Flonase] 1 spray NS QDAY #1 bottle 12/26/18 Unknown Rx ALBUTEROL NEB's [Proventil 0.083% 2.5 mg IH Q6H PRN #1 box 12/26/19 Unknown Rx NEBS] Albuterol Mdi (or & Nicu Only) 2 puff IH QID PRN #8.5 gram 12/26/19 Unknown Rx [ProAir HFA Inhaler] Benzonatate [Tessalon Perles] 100 mg PO Q8HR #30 capsule 05/17/20 Unknown Rx predniSONE [Deltasone] 40 mg PO BID #12 tab 05/17/20 Unknown Rx Cetirizine HCl [Zyrtec 10mg tab] 10 mg PO DAILY #14 tablet 06/11/20 Unknown Rx Fluticasone [Flonase] 1 spray NS QDAY #1 bottle 06/11/20 Unknown Rx guaiFENesin ER [Mucinex ER] 600 mg PO BID #14 tablet.er 06/11/20 Unknown Rx Enoxaparin 60 mg SUB-Q Q12HR 7 Days syringe 12/06/20 Unknown Rx Metoprolol [Lopressor TAB] 25 mg PO BID #60 tablet 12/06/20 Unknown Rx Warfarin [Coumadin] 1 mg PO DAILY #30 12/06/20 Unknown Rx HYDROcodone/APAP 5-325 [[place] 1 each PO Q4HR PRN #12 tablet 01/26/21 Unknown Rx 5/325] Famotidine [Pepcid] 20 mg PO BID 30 Days #60 tablet 06/16/21 Unknown Rx HYDROcodone/APAP 5-325 [[place] 1 each PO Q6HR PRN 3 Days #12 06/16/21 Unknown Rx 5/325] tablet Allergies Allergy/AdvReac Type Severity Reaction Status Date / Time Iodinated Contrast Media Allergy Swelling Verified 06/02/19 10:30 morphine Allergy Rash Verified 06/02/19 10:30 ED Review of Systems ROS: Stated complaint: BLEEDING FROM RECTUM Other details as noted in HPI Constitutional: denies: chills, fever Eyes: denies: eye pain, eye discharge, vision change ENT: denies: ear pain, throat pain Respiratory: denies: cough, shortness of breath, wheezing Cardiovascular: denies: chest pain, palpitations Endocrine: no symptoms reported Gastrointestinal: abdominal pain, hematochezia. denies: nausea, vomiting, diarrhea Genitourinary: denies: urgency, dysuria, discharge Musculoskeletal: denies: back pain, joint swelling, arthralgia Skin: denies: rash, lesions Neurological: denies: headache, weakness, paresthesias Psychiatric: denies: anxiety, depression Hematological/Lymphatic: denies: easy bleeding, easy bruising ED Past Medical Hx - Past Medical History Hx Hypertension: Yes Hx CVA: No Hx Heart Attack/AMI: No Hx Congestive Heart Failure: Yes Hx Diabetes: No Hx Deep Vein Thrombosis: No Hx Pulmonary Embolism: No Hx GERD: Yes Hx Liver Disease: No Hx Renal Disease: No Hx Sickle Cell Disease: No Hx Arthritis: No Hx Headaches / Migraines: No Hx Seizures: No Hx Kidney Stones: No Hx Psychiatric Treatment: No Hx Asthma: Yes Hx COPD: Yes Hx Tuberculosis: No Hx Dementia: No Hx HIV: No Additional medical history: gall stones, fibroids, MVP, myomectomy. A. fib with rvr - Surgical History Hx Coronary Stent: No Hx Open Heart Surgery: Yes (Mitral and Tricuspid valve replacement/surgery (based on cxr) 05/2018) Hx Pacemaker: No Hx Internal Defibrillator: No Hx Cholecystectomy: No Hx Appendectomy: No Hx Breast Surgery: No Additional Surgical History: fibroid removal - Social History Smoking Status: Current Every Day Smoker Substance Use Type: None - Medications Home Medications: Home Medications Medication Instructions Recorded Confirmed Last Taken Type Furosemide [Lasix TAB] 40 mg PO QDAY 04/25/18 12/05/20 12/03/20 09:00 History Potassium Chloride [K-Dur] 20 meq PO QDAY 04/25/18 12/05/20 12/04/20 09:00 Histo ry Arformoterol Nebu [Brovana Nebu] 15 mcg IH BID 10/14/18 12/05/20 10/07/18 History Aspirin EC [Halfprin EC] 81 mg PO DAILY 10/14/18 12/05/20 12/04/20 09:00 History Fluticasone/Salmeterol [Advair 1 puff PO BID PRN 10/14/18 12/05/20 10/06/18 History Diskus 250-50 mcg] Pantoprazole [Protonix TAB] 40 mg PO DAILY 10/14/18 12/05/20 12/03/20 09:00 History Proventil Hfa 2 puff INHALATION Q4H PRN 10/14/18 12/05/20 12/02/20 13:00 History Fluticasone [Flonase] 1 spray NS QDAY #1 bottle 12/26/18 12/05/20 Unknown Rx ALBUTEROL NEB's [Proventil 0.083% 2.5 mg IH Q6H PRN #1 box 12/26/19 12/05/20 Unknown Rx NEBS] Albuterol Mdi (or & Nicu Only) 2 puff IH QID PRN #8.5 gram 12/26/19 12/05/20 Unknown Rx [ProAir HFA Inhaler] Benzonatate [Tessalon Perles] 100 mg PO Q8HR #30 capsule 05/17/20 12/05/20 Unknown Rx predniSONE [Deltasone] 40 mg PO BID #12 tab 05/17/20 12/05/20 Unknown Rx Cetirizine HCl [Zyrtec 10mg tab] 10 mg PO DAILY #14 tablet 06/11/20 12/05/20 Unknown Rx Fluticasone [Flonase] 1 spray NS QDAY #1 bottle 06/11/20 12/05/20 Unknown Rx guaiFENesin ER [Mucinex ER] 600 mg PO BID #14 tablet.er 06/11/20 12/05/20 Unknown Rx Enoxaparin 60 mg SUB-Q Q12HR 7 Days syringe 12/06/20 Unknown Rx Metoprolol [Lopressor TAB] 25 mg PO BID #60 tablet 12/06/20 Unknown Rx Warfarin [Coumadin] 1 mg PO DAILY #30 12/06/20 Unknown Rx HYDROcodone/APAP 5-325 [[place] 1 each PO Q4HR PRN #12 tablet 01/26/21 Unknown Rx 5/325] Famotidine [Pepcid] 20 mg PO BID 30 Days #60 tablet 06/16/21 Unknown Rx HYDROcodone/APAP 5-325 [[place] 1 each PO Q6HR PRN 3 Days #12 06/16/21 Unknown Rx 5/325] tablet ED Physical Exam - General Limitations: No Limitations General appearance: alert, in no apparent distress - Head Head exam: Present: atraumatic, normocephalic - Eye Eye exam: Present: normal appearance - ENT ENT exam: Present: mucous membranes moist - Neck Neck exam: Present: normal inspection - Respiratory Respiratory exam: Present: normal lung sounds bilaterally. Absent: respiratory distress - Cardiovascular Cardiovascular Exam: Present: regular rate, normal rhythm. Absent: systolic murmur, diastolic murmur, rubs, gallop - GI/Abdominal GI/Abdominal exam: Present: soft, normal bowel sounds - Rectal Rectal exam: Present: heme (-) stool, hemorrhoids - Extremities Exam Extremities exam: Present: normal inspection - Back Exam Back exam: Present: normal inspection - Neurological Exam Neurological exam: Present: alert, oriented X3 - Psychiatric Psychiatric exam: Present: normal affect, normal mood - Skin Skin exam: Present: warm, dry, intact, normal color. Absent: rash ED Course Vital Signs 06/16/21 06/16/21 06/16/21 16:27 18:28 19:15 Temperature 98.6 F 98.1 F Pulse Rate 94 H 81 Respiratory 18 14 Rate Blood Pressure 114/57 118/50 [Right] O2 Sat by Pulse 97 100 98 Oximetry - Reevaluation(s) Reevaluation #2: 06/16/21 20:42 Patient reports that she was unable to have her CAT scan done with the p.o. Ativan. She does not want to be stuck again. Given this and given that her vital signs are stable, labs appear stable patient is stable for discharge and she desires such. She is encouraged to follow-up with her GI doctor and return to the emergency department for any her symptoms worsen. She will be given 3 days of pain control and started on Pepcid. ED Medical Decision Making - Lab Data Result diagrams: 06/16/21 18:45 06/16/21 18:45 - Medical Decision Making Patient is a 60-year-old female presents emergency department with complaint of rectal bleeding. She states it was pinkish. Patient currently on Coumadin. Last dose was 5 PM. Concern for lower GI bleeding. Protonix given given possibility of upper GI bleeding. Will obtain basic labs including PT/INR. Given abdominal pain will also obtain CT scan abdomen pelvis that she could have diverticulitis. Will reassess disposition pending work-up. Critical care attestation.: If time is entered above; I have spent that time in minutes in the direct care of this critically ill patient, excluding procedure time. ED Disposition Clinical Impression: Abdominal pain Disposition: 01 HOME / SELF CARE / HOMELESS Is pt being admited?: No Does the pt Need Aspirin: No Condition: Stable Instructions: Abdominal Pain, Adult, [id number], Gastrointestinal Bleeding Prescriptions: HYDROcodone/APAP 5-325 [[place] 5/325] 1 each PO Q6HR PRN 3 Days #12 tablet PRN Reason: Pain Famotidine [Pepcid] 20 mg PO BID 30 Days #60 tablet
[2021-06-16 18:43] LABS: Bilirubin,Urine NEG (Negative); Blood,Urine NEG (Negative); Color,Urine Straw (Yellow); Protein,Urine <15 mg/dL mg/dL (Negative); RBC,Urine < 1.0 /HPF (0.0-6.0); Urobilinogen,Urine < 2.0 mg/dL (<2.0); WBC,Urine < 1.0 /HPF (0.0-6.0)
[2021-06-16 19:04] LABS: Basophils # (Auto) 0.1 K/mm3 (0.0-0.1); Basophils % (Auto) 0.8 % (0.0-1.8); Eosinophils # (Auto) 0.2 K/mm3 (0.0-0.4); Eosinophils % (Auto) 2.3 % (0.0-4.3); Hematocrit 42.3 % (30.3-42.9); Hemoglobin 13.8 gm/dl (10.1-14.3); Lymphocytes # (Auto) 2.1 K/mm3 (1.2-5.4); Lymphocytes % (Auto) 24.2 % (13.4-35.0); Mean Corpuscular HGB Conc 33 % (30-34); Mean Corpuscular Volume 84 fl (79-97); Monocytes # (Auto) 0.5 K/mm3 (0.0-0.8); Monocytes % (Auto) 6.1 % (0.0-7.3); Platelet Count 367 K/mm3 (140-440); Red Blood Count 5.03 M/mm3 (3.65-5.03); Red Cell Distribution Width 16.4 % (13.2-15.2)
[2021-06-16 19:17] LABS: INR 1.97 (0.87-1.13)
[2021-06-16 19:25] LABS: Alanine Aminotransferase 13 units/L (7-56); Albumin 4.4 g/dL (3.9-5); BUN/Creatinine Ratio 9; Blood Urea Nitrogen 8 mg/dL (7-17); Calcium 9.2 mg/dL (8.4-10.2); Hemolysis Index 4
[2021-06-16 19:37] LABS: Bilirubin,Direct < 0.2 mg/dL (0-0.2)
[2021-06-16] MEDS ORDERED: LORazepam 2 MG/ML VIAL IV PRN (19:52)
[2021-06-16] MEDS ORDERED: PANTOPRAZOLE 40 MG TAB PO ONE (20:01)
[2021-06-16] MEDS ORDERED: LORazepam 1 MG TAB PO ONE (20:02)
[2021-06-16 21:07] VITALS: BP 135/64
== END 2021-06-16 21:08 | disposition home or self-care (01) ==
LOC: ED 16:12
DX: R10.32 Left lower quadrant pain (principal); I10 Essential (primary) hypertension; K21.9 Gastro-esophageal reflux disease without esophagitis; J45.909 Unspecified asthma, uncomplicated; Z79.899 Other long term (current) drug therapy; Z98.890 Other specified postprocedural states; F17.200 Nicotine dependence, unspecified, uncomplicated; Z88.8 Allergy status to other drugs, medicaments and biological substances; Z91.09 Other allergy status, other than to drugs and biological substances
CPT/HCPCS: 36415; 80048; 80076; 81001; 82270; 83690; 85025; 85610; 85730; 86850; 86900; 86901; 99283; C9113

== ENCOUNTER 2021-07-15 02:20 | Emergency (ER) | payer MEDICARE ==
[2021-07-15 02:35] VITALS: BP 138/54
== END 2021-07-15 02:56 | disposition left against medical advice (07) ==
LOC: ED 02:20
DX: M79.671 Pain in right foot (principal); Z53.21 Procedure and treatment not carried out due to patient leaving prior to being seen by health care provider

== ENCOUNTER 2021-08-29 17:16 | Emergency (ER) | payer MEDICARE ==
[2021-08-29 20:05] LABS: Basophils # (Auto) 0.1 K/mm3 (0.0-0.1); Basophils % (Auto) 1.1 % (0.0-1.8); Eosinophils # (Auto) 0.2 K/mm3 (0.0-0.4); Eosinophils % (Auto) 1.8 % (0.0-4.3); Hematocrit 38.7 % (30.3-42.9); Lymphocytes % (Auto) 26.4 % (13.4-35.0); Mean Corpuscular HGB Conc 34 % (30-34); Mean Corpuscular Volume 84 fl (79-97); Monocytes # (Auto) 0.7 K/mm3 (0.0-0.8); Monocytes % (Auto) 5.9 % (0.0-7.3); Platelet Count 305 K/mm3 (140-440); Red Blood Count 4.61 M/mm3 (3.65-5.03)
[2021-08-29 20:17] LABS: INR 1.89 (0.87-1.13)
[2021-08-29 20:18] LABS: Partial Thromboplastin Time 39.7 Sec. (24.2-36.6)
[2021-08-29 20:20] LABS: Alanine Aminotransferase 10 units/L (7-56); Albumin 4.2 g/dL (3.9-5); BUN/Creatinine Ratio 12; Blood Urea Nitrogen 11 mg/dL (7-17); Calcium 9.5 mg/dL (8.4-10.2); Hemolysis Index 6
--- NOTE | 2021-08-30 07:43 | Emergency Department Report ---
ED GI Bleed HPI - General Chief complaint: GI Bleed Stated complaint: ANAL BLEEDING/DIARRHEA Time Seen by Provider: 08/30/21 07:06 Source: patient Mode of arrival: Ambulatory Limitations: No Limitations - History of Present Illness Initial comments: 60-year-old female presents for evaluation of rectal bleeding. Patient states she has been constipated and yesterday used a fleets enema suppository which had a tube. She states the instructions were to place the tube in her rectum and then insert the enema through the tube. She states shortly after that she noticed some mild rectal bleeding. She states she subsequently had a bowel movement but then the bleeding resolved. She states while in the waiting room yesterday she passed flatus and subsequently noted that she had seen blood on her rectum again. She denies any active abdominal pain nausea vomiting fevers or chills. No lightheadedness or dizziness. She states that she is on Coumadin. Pain 0 out of 10. Severity scale (0 -10): 0 - Related Data Home Medications Medication Instructions Recorded Confirmed Last Taken Furosemide [Lasix TAB] 40 mg PO QDAY 04/25/18 12/05/20 12/03/20 09:00 Potassium Chloride [K-Dur] 20 meq PO QDAY 04/25/18 12/05/20 12/04/20 09:00 Arformoterol Nebu [Brovana Nebu] 15 mcg IH BID 10/14/18 12/05/20 10/07/18 Aspirin EC [Halfprin EC] 81 mg PO DAILY 10/14/18 12/05/20 12/04/20 09:00 Fluticasone/Salmeterol [Advair 1 puff PO BID PRN 10/14/18 12/05/20 10/06/18 Diskus 250-50 mcg] Pantoprazole [Protonix TAB] 40 mg PO DAILY 10/14/18 12/05/20 12/03/20 09:00 Proventil Hfa 2 puff INHALATION Q4H PRN 10/14/18 12/05/20 12/02/20 13:00 Previous Rx's Medication Instructions Recorded Last Taken Type Fluticasone [Flonase] 1 spray NS QDAY #1 bottle 12/26/18 Unknown Rx ALBUTEROL NEB's [Proventil 0.083% 2.5 mg IH Q6H PRN #1 box 12/26/19 Unknown Rx NEBS] Albuterol Mdi (or & Nicu Only) 2 puff IH QID PRN #8.5 gram 12/26/19 Unknown Rx [ProAir HFA Inhaler] Benzonatate [Tessalon Perles] 100 mg PO Q8HR #30 capsule 05/17/20 Unknown Rx predniSONE [Deltasone] 40 mg PO BID #12 tab 05/17/20 Unknown Rx Cetirizine HCl [Zyrtec 10mg tab] 10 mg PO DAILY #14 tablet 06/11/20 Unknown Rx Fluticasone [Flonase] 1 spray NS QDAY #1 bottle 06/11/20 Unknown Rx guaiFENesin ER [Mucinex ER] 600 mg PO BID #14 tablet.er 06/11/20 Unknown Rx Enoxaparin 60 mg SUB-Q Q12HR 7 Days syringe 12/06/20 Unknown Rx Metoprolol [Lopressor TAB] 25 mg PO BID #60 tablet 12/06/20 Unknown Rx Warfarin [Coumadin] 1 mg PO DAILY #30 12/06/20 Unknown Rx HYDROcodone/APAP 5-325 [[place] 1 each PO Q4HR PRN #12 tablet 01/26/21 Unknown Rx 5/325] Famotidine [Pepcid] 20 mg PO BID 30 Days #60 tablet 06/16/21 Unknown Rx HYDROcodone/APAP 5-325 [[place] 1 each PO Q6HR PRN 3 Days #12 06/16/21 Unknown Rx 5/325] tablet Allergies Allergy/AdvReac Type Severity Reaction Status Date / Time Iodinated Contrast Media Allergy Swelling Verified 08/29/21 18:51 morphine Allergy Rash Verified 08/29/21 18:51 ED Review of Systems ROS: Stated complaint: ANAL BLEEDING/DIARRHEA Other details as noted in HPI Comment: All other systems reviewed and negative Constitutional: no symptoms reported Eyes: as per HPI ENT: denies: ear pain, throat pain, dental pain, hearing loss, epistaxis Respiratory: no symptoms reported. denies: shortness of breath Cardiovascular: denies: chest pain, palpitations, dyspnea on exertion, orthopnea, edema, syncope, paroxysmal nocturnal dyspnea, other Endocrine: denies: no symptoms reported Gastrointestinal: constipation, hematochezia. denies: abdominal pain, nausea, vomiting, diarrhea, melena, other Genitourinary: denies: urgency, dysuria, frequency, hematuria, discharge Musculoskeletal: denies: back pain, joint swelling, arthralgia Skin: denies: rash, lesions, change in color, change in hair/nails, pruritus Neurological: denies: headache, weakness, numbness, paresthesias, confusion Psychiatric: denies: anxiety, depression, auditory hallucinations, visual hallucinations, homicidal thoughts Hematological/Lymphatic: denies: easy bleeding, easy bruising, swollen glands ED Past Medical Hx - Past Medical History Hx Hypertension: Yes Hx CVA: No Hx Heart Attack/AMI: No Hx Congestive Heart Failure: Yes Hx Diabetes: No Hx Deep Vein Thrombosis: No Hx Pulmonary Embolism: No Hx GERD: Yes Hx Liver Disease: No Hx Renal Disease: No Hx Sickle Cell Disease: No Hx Arthritis: No Hx Headaches / Migraines: No Hx Seizures: No Hx Kidney Stones: No Hx Psychiatric Treatment: No Hx Asthma: Yes Hx COPD: Yes Hx Tuberculosis: No Hx Dementia: No Hx HIV: No Additional medical history: gall stones, fibroids, MVP, myomectomy. A. fib with rvr - Surgical History Hx Coronary Stent: No Hx Open Heart Surgery: Yes (Mitral and Tricuspid valve replacement/surgery (base d on cxr) 05/2018) Hx Pacemaker: No Hx Internal Defibrillator: No Hx Cholecystectomy: No Hx Appendectomy: No Hx Breast Surgery: No Additional Surgical History: fibroid removal - Social History Smoking Status: Current Every Day Smoker Substance Use Type: None - Medications Home Medications: Home Medications Medication Instructions Recorded Confirmed Last Taken Type Furosemide [Lasix TAB] 40 mg PO QDAY 04/25/18 12/05/20 12/03/20 09:00 History Potassium Chloride [K-Dur] 20 meq PO QDAY 04/25/18 12/05/20 12/04/20 09:00 History Arformoterol Nebu [Brovana Nebu] 15 mcg IH BID 10/14/18 12/05/20 10/07/18 History Aspirin EC [Halfprin EC] 81 mg PO DAILY 10/14/18 12/05/20 12/04/20 09:00 History Fluticasone/Salmeterol [Advair 1 puff PO BID PRN 10/14/18 12/05/20 10/06/18 History Diskus 250-50 mcg] Pantoprazole [Protonix TAB] 40 mg PO DAILY 10/14/18 12/05/20 12/03/20 09:00 History Proventil Hfa 2 puff INHALATION Q4H PRN 10/14/18 12/05/20 12/02/20 13:00 History Fluticasone [Flonase] 1 spray NS QDAY #1 bottle 12/26/18 12/05/20 Unknown Rx ALBUTEROL NEB's [Proventil 0.083% 2.5 mg IH Q6H PRN #1 box 12/26/19 12/05/20 Unknown Rx NEBS] Albuterol Mdi (or & Nicu Only) 2 puff IH QID PRN #8.5 gram 12/26/19 12/05/20 Unknown Rx [ProAir HFA Inhaler] Benzonatate [Tessalon Perles] 100 mg PO Q8HR #30 capsule 05/17/20 12/05/20 Unknown Rx predniSONE [Deltasone] 40 mg PO BID #12 tab 05/17/20 12/05/20 Unknown Rx Cetirizine HCl [Zyrtec 10mg tab] 10 mg PO DAILY #14 tablet 06/11/20 12/05/20 Unknown Rx Fluticasone [Flonase] 1 spray NS QDAY #1 bottle 06/11/20 12/05/20 Unknown Rx guaiFENesin ER [Mucinex ER] 600 mg PO BID #14 tablet.er 06/11/20 12/05/20 Unknown Rx Enoxaparin 60 mg SUB-Q Q12HR 7 Days syringe 12/06/20 Unknown Rx Metoprolol [Lopressor TAB] 25 mg PO BID #60 tablet 12/06/20 Unknown Rx Warfarin [Coumadin] 1 mg PO DAILY #30 12/06/20 Unknown Rx HYDROcodone/APAP 5-325 [[place] 1 each PO Q4HR PRN #12 tablet 01/26/21 Unknown Rx 5/325] Famotidine [Pepcid] 20 mg PO BID 30 Days #60 tablet 06/16/21 Unknown Rx HYDROcodone/APAP 5-325 [[place] 1 each PO Q6HR PRN 3 Days #12 06/16/21 Unknown Rx 5/325] tablet ED Physical Exam - General Limitations: No Limitations General appearance: alert, in no apparent distress, other (pt asleep on exam stretcher, comfortable and well-appearing, no acute distress) - Head Head exam: Present: atraumatic, normocephalic, normal inspection - Eye Eye exam: Present: normal appearance, PERRL, EOMI, scleral icterus, conjunctival injection, nystagmus Pupils: Present: normal accommodation, unequal - ENT ENT exam: Present: normal exam, normal orophraynx, mucous membranes moist, TM's normal bilaterally, normal external ear exam - Neck Neck exam: Present: normal inspection, tenderness, full ROM. Absent: meningismus, lymphadenopathy, thyromegaly, other - GI/Abdominal GI/Abdominal exam: Present: soft, normal bowel sounds. 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 Absent: black stool, fecal impaction, hemorrhoids, mass, tenderness - External exam: Present: normal external exam. Absent: erythema, swelling, lesions, lacerations, ecchymosis, bleeding, other - Extremities Exam Extremities exam: Present: normal inspection - Neurological Exam Neurological exam: Present: alert, oriented X3, CN II-XII intact, normal gait, reflexes normal - Psychiatric Psychiatric exam: Present: normal affect, normal mood. Absent: depressed, agitated, anxious, flat affect, manic, homicidal ideation, suicidal ideation ED Course Vital Signs 08/29/21 08/30/21 18:47 04:48 Temperature 98.6 F 98.3 F Pulse Rate 86 91 H Respiratory 16 18 Rate Blood Pressure 133/62 Blood Pressure 115/67 [Right] O2 Sat by Pulse 97 97 Oximetry - Reevaluation(s) Reevaluation #1: 08/30/21 09:18 PT is well appearing; denies any complaints; vss; she is in no distress ED Medical Decision Making - Lab Data Result diagrams: 08/30/21 08:10 08/29/21 19:45 - Radiology Data Radiology results: report reviewed - Medical Decision Making 60-year-old female with multiple medical comorbidities presents for evaluation of rectal bleeding status post inserting rectal tube for insertion of enema at home 1 day ago. Vital signs stable. Physical exam grossly unremarkable. She is very well appearing and denies reoccuring bright red blood per rectum since being moved to her ER examination. Patient ordered for serial hemoglobin hematocrits and hemoglobin has remained stable. INR subtherapeutic. Digital rectal exam is negative for fissures, external hemorrhoids, visible retained foreign bodies, palpable rectal masses, active GI bleeding, melena or hematemesis. Her abdomen is soft nondistended nontender without guarding or rebound tenderness and she repeatedly denies any active abdominal pain here. No further emergent work-up indicated at this time. Patient deemed stable for discharge to home. Prior to discharge she was given strict verbal and written return precautions. She verbalized understanding and agreement plan of care Critical care attestation.: If time is entered above; I have spent that time in minutes in the direct care of this critically ill patient, excluding procedure time. ED Disposition Clinical Impression: Rectal trauma Disposition: HOME / SELF CARE / HOMELESS Is pt being admited?: No Does the pt Need Aspirin: No Condition: Stable Instructions: Chronic Constipation Additional Instructions: It is strongly recommended that you no longer insert anything into your rectum to help with constipation. If you are having constipation, please take fiber supplement such as fiber Gummies and/or MiraLAX. Be sure to drink plenty of fluids. Eat foods high in fiber to help ease discomfort from constipation and help promote regular bowel movements. Follow-up with your primary care doctor within 2-3 business days for reassessment. Return to the nearest emergency department soon as possible if you develop persistent or worsening bleeding, abdominal pain, nausea vomiting fevers or chills, dizziness, or if any other new worrisome symptoms develop. Forms: Accompanied Note
--- NOTE | 2021-08-30 08:46 | XRay Report ---
ABDOMEN 1 VIEW(S) INDICATION / CLINICAL INFORMATION: constipation. COMPARISON: CT 01/26/2021 FINDINGS: TUBES / LINES: None. BOWEL GAS PATTERN: No significant abnormality. FREE AIR / EXTRALUMINAL GAS: None seen. ADDITIONAL FINDINGS: Multiple phleboliths are noted in the pelvis. IMPRESSION: 1. No significant abnormality. Specifically, there is no radiographic evidence of constipation. Signer Name: Calvin Hayward MD Signed: 08/30/2021 8:42 AM Workstation Name: [id number]
[2021-08-30 09:14] LABS: Basophils # (Auto) 0.1 K/mm3 (0.0-0.1); Basophils % (Auto) 0.6 % (0.0-1.8); Eosinophils # (Auto) 0.3 K/mm3 (0.0-0.4); Eosinophils % (Auto) 3.1 % (0.0-4.3); Hematocrit 37.1 % (30.3-42.9); Hemoglobin 12.2 gm/dl (10.1-14.3); Lymphocytes # (Auto) 2.8 K/mm3 (1.2-5.4); Mean Corpuscular HGB Conc 33 % (30-34); Mean Corpuscular Volume 84 fl (79-97); Monocytes # (Auto) 0.5 K/mm3 (0.0-0.8); Monocytes % (Auto) 5.5 % (0.0-7.3); Platelet Count 303 K/mm3 (140-440); Red Blood Count 4.44 M/mm3 (3.65-5.03); Red Cell Distribution Width 16.7 % (13.2-15.2)
[2021-08-30 09:39] LABS: INR 2.36 (0.87-1.13)
[2021-08-30 10:49] VITALS: BP 128/58
== END 2021-08-30 11:00 | disposition home or self-care (01) ==
LOC: ED 17:16
DX: S36.60XA Unspecified injury of rectum, initial encounter (principal); I10 Essential (primary) hypertension; K21.9 Gastro-esophageal reflux disease without esophagitis; J45.909 Unspecified asthma, uncomplicated; Z98.890 Other specified postprocedural states; Z91.09 Other allergy status, other than to drugs and biological substances; Z79.899 Other long term (current) drug therapy; X58.XXXA Exposure to other specified factors, initial encounter; Y93.89 Activity, other specified; Y92.89 Other specified places as the place of occurrence of the external cause; Y99.8 Other external cause status
CPT/HCPCS: 36415; 74018; 80053; 83690; 85025; 85610; 85730; 86850; 86900; 86901; 99283

== ENCOUNTER 2021-10-29 07:14 | Emergency (ER) | payer MEDICARE ==
--- NOTE | 2021-10-29 08:09 | Emergency Department Report ---
Upper Extremity - HPI Stated Complaint: RT SHOULDER PAIN Time Seen by Provider: 10/29/21 08:06 Upper Extremity: Right Shoulder Occurred When: >5 Days Mechanism: Unsure Severity: severe Symptoms: Yes Pain with Movement, No Deformity, No Limited Range of Movement, No Numbness, No Weakness, No Swelling, No Bruising/Ecchymosis, No Laceration or Abrasion Other History: PT CO R SHOULDER PAIN. SAW PCP 8-17 AND WAS GIVEN MEDS BUT IT IS NOT WORKING. SHE WAS GIVEN TIZANIDINE AND IT DOES NOT WORK. SHE WANTS SOMETHING STRONGER. ALLERGIC TO MORPHINE. NO FALL. NO TRAUMA ED Review of Systems ROS: Stated complaint: RT SHOULDER PAIN Other details as noted in HPI Comment: All other systems reviewed and negative ED Past Medical Hx - Past Medical History Previous Medical History?: Yes Hx Hypertension: Yes Hx CVA: No Hx Heart Attack/AMI: No Hx Congestive Heart Failure: Yes Hx Diabetes: No Hx Deep Vein Thrombosis: No Hx Pulmonary Embolism: No Hx GERD: Yes Hx Liver Disease: No Hx Renal Disease: No Hx Sickle Cell Disease: No Hx Arthritis: No Hx Headaches / Migraines: No Hx Seizures: No Hx Kidney Stones: No Hx Psychiatric Treatment: No Hx Asthma: Yes Hx COPD: Yes Hx Tuberculosis: No Hx Dementia: No Hx HIV: No Additional medical history: gall stones, fibroids, MVP, myomectomy. A. fib with rvr - Surgical History Past Surgical History?: Yes Hx Coronary Stent: No Hx Open Heart Surgery: Yes (Mitral and Tricuspid valve replacement/surgery (based on cxr) 05/2018) Hx Pacemaker: No Hx Internal Defibrillator: No Hx Cholecystectomy: No Hx Appendectomy: No Hx Breast Surgery: No Additional Surgical History: fibroid removal - Family History Family history: no significant - Social History Smoking Status: Unknown if ever smoked Substance Use Type: None - Medications Home Medications: Home Medications Medication Instructions Recorded Confirmed Last Taken Type Furosemide [Lasix TAB] 40 mg PO QDAY 04/25/18 12/05/20 12/03/20 09:00 History Potassium Chloride [K-Dur] 20 meq PO QDAY 04/25/18 12/05/20 12/04/20 09:00 History Arformoterol Nebu [Brovana Nebu] 15 mcg IH BID 10/14/18 12/05/20 10/07/18 History Aspirin EC [Halfprin EC] 81 mg PO DAILY 10/14/18 12/05/20 12/04/20 09:00 History Fluticasone/Salmeterol [Advair 1 puff PO BID PRN 10/14/18 12/05/20 10/06/18 History Diskus 250-50 mcg] Pantoprazole [Protonix TAB] 40 mg PO DAILY 10/14/18 12/05/20 12/03/20 09:00 History Proventil Hfa 2 puff INHALATION Q4H PRN 10/14/18 12/05/20 12/02/20 13:00 History Fluticasone [Flonase] 1 spray NS QDAY #1 bottle 12/26/18 12/05/20 Unknown Rx ALBUTEROL NEB's [Proventil 0.083% 2.5 mg IH Q6H PRN #1 box 12/26/19 12/05/20 Unknown Rx NEBS] Albuterol Mdi (or & Nicu Only) 2 puff IH QID PRN #8.5 gram 12/26/19 12/05/20 Unknown Rx [ProAir HFA Inhaler] Benzonatate [Tessalon Perles] 100 mg PO Q8HR #30 capsule 05/17/20 12/05/20 Unknown Rx predniSONE [Deltasone] 40 mg PO BID #12 tab 05/17/20 12/05/20 Unknown Rx Cetirizine HCl [Zyrtec 10mg tab] 10 mg PO DAILY #14 tablet 06/11/20 12/05/20 Unknown Rx Fluticasone [Flonase] 1 spray NS QDAY #1 bottle 06/11/20 12/05/20 Unknown Rx guaiFENesin ER [Mucinex ER] 600 mg PO BID #14 tablet.er 06/11/20 12/05/20 Unknown Rx Enoxaparin 60 mg SUB-Q Q12HR 7 Days syringe 12/06/20 Unknown Rx Metoprolol [Lopressor TAB] 25 mg PO BID #60 tablet 12/06/20 Unknown Rx Warfarin [Coumadin] 1 mg PO DAILY #30 12/06/20 Unknown Rx HYDROcodone/APAP 5-325 [[place] 1 each PO Q4HR PRN #12 tablet 01/26/21 Unknown Rx 5/325] Famotidine [Pepcid] 20 mg PO BID 30 Days #60 tablet 06/16/21 Unknown Rx HYDROcodone/APAP 5-325 [[place] 1 each PO Q6HR PRN 3 Days #12 06/16/21 Unknown Rx 5/325] tablet Upper Extremity Exam - Exam General: Vital signs noted. No distress. Alert and acting appropriately. Head and Torso: No HEENT Abnormality, No Neck Tenderness, No Chest/Lungs Abnormality, No Abdominal Tenderness, No Back Tenderness Shoulder Exam: Yes Normal Range of Motion in Shoulder, No Shoulder Tenderness, No Clavicle Tenderness, No Shoulder Deformity, No AC Joint Tenderness Arm Exam: No Arm/Humerus Tenderness, No Arm Deformity Elbow: No Elbow Tenderness, No Normal Range of Motion in Elbow, No Elbow Deformity Forearm: No Forearm Tenderness, No Forearm Deformity, No Pain with Pronation, No Pain with Supination Wrist: Yes Normal ROM in Wrist, No Wrist Tenderness, No Wrist Deformity, No Snuffbox Tenderness, No Pain with Axial Thumb Compression Hand: Yes Normal ROM in Digit(s), No Hand Tenderness, No Hand Deformity, No Digit Tenderness, No Digit(s) Deformity, No Tendon Dysfunction CMS Exam: No Broken Skin, No Normal Distal Pulses, No Normal Capillary Refill, No Normal Distal Sensation ED Medical Decision Making - Medical Decision Making 0853 did not want to wait any longer left ER nad Vital Signs 10/29/21 08:07 Temperature 98.3 F Pulse Rate 86 Respiratory 14 Rate Blood Pressure 96/61 [Right] O2 Sat by Pulse 98 Oximetry Critical care attestation.: If time is entered above; I have spent that time in minutes in the direct care of this critically ill patient, excluding procedure time. ED Disposition Clinical Impression: Arm pain Disposition: 07 LEFT AWOL/ELOPED Is pt being admited?: No Does the pt Need Aspirin: No Condition: Stable Time of Disposition: 08:54
[2021-10-29 08:10] VITALS: BP 96/61
== END 2021-10-29 10:47 | disposition left against medical advice (07) ==
LOC: ED 07:14
DX: M25.511 Pain in right shoulder (principal)
CPT/HCPCS: 99281